=== PATIENT | female | born 1935 | race Caucasian/White ===

== ENCOUNTER 2022-11-06 07:08 | Emergency (ER) | payer MEDICARE, SELFPAY ==
[2022-11-06 07:16] VITALS: BP 152/93; PULSE 72; RESP 16; TEMP 37.2; O2SAT 93; BMI 32.3
[2022-11-06 07:23] VITALS: O2SAT 93
[2022-11-06 07:48] VITALS: PULSE 61; RESP 18; O2SAT 92
[2022-11-06 07:57] VITALS: PULSE 65; RESP 18; O2SAT 93
--- NOTE | 2022-11-06 07:59 | ED.URI1 ---
HPI - URI/Sore Throat General Chief Complaint: Upper Respiratory Infection Stated Complaint: congestion Time Seen by Provider: 11/06/22 07:50 Source: patient Limitations: no limitations History of Present Illness HPI Narrative: cc - cough Started a week ago. PCP is Dr Goel and, according to the patient and , when they called the office and asked to be seen for cough, they were told that they couldn't see patients with cough in the office. Patient's had an unused Rx for zpak and started her on that. She also took over the counter cough medicine. Patient and spouse were concerned because the cough and chest tickle hadn't completely resolved. Related Data Home Medications Medication Instructions Recorded Confirmed aspirin 81 mg capsule 81 mg PO QDAY 11/06/22 11/06/22 atorvastatin 10 mg tablet 10 mg PO QDAY 11/06/22 11/06/22 ezetimibe 10 mg tablet 10 mg PO QAM 11/06/22 11/06/22 omeprazole 20 mg capsule,delayed 20 mg PO QDAY 11/06/22 11/06/22 release Allergies Allergy/AdvReac Type Severity Reaction Status Date / Time No Known Drug Allergies Allergy Verified 11/06/22 07:46 PFSH PFSH Social History Smoking status: Never smoker Exam Narrative: Exam Narrative: Nurses notes and vital signs reviewed and patient is not hypoxic. General: Well-appearing and in no apparent distress. afebrile Skin: Warm, dry, no pallor noted. No rash. Head: Normocephalic, atraumatic. Neck: Supple, non-tender. no cervical lymphadenopathy Eye: Pupils are equal, round and EOMI. No scleral icterus. Ears, Nose, Mouth, and Throat: TM are clear, no nasal mucosal hypertrophy. Oral mucosa is moist, no posterior oropharynx erythema, uvula is mid-line Cardiovascular: Regular Rate and Rhythm without murmur, gallop or rub. Respiratory: No accessory muscle use or respiratory distress. Lungs with scattered rhonchi Musculoskeletal: normal ROM Neurological: A&O x4. No cranial nerve dysfunction observed. No truncal ataxia. Moves all extremities. Sensation intact. Psychiatric: Cooperative and interactive. Normal mood and affect. Constitutional: Vital Signs, click to edit/add: Vital Signs - 24 hr 11/06/22 07:16 11/06/22 07:23 11/06/22 07:48 Temperature 98.9 F Pulse Rate [Monito r] 72 61 Respiratory Rate 16 18 Blood Pressure [Le ft Arm] 152/93 H Pulse Oximetry 93 L 93 L 92 L Oxygen Delivery Me thod Room Air Room Air Room Air 11/06/22 07:57 Temperature Pulse Rate [Monito r] 65 Respiratory Rate 18 Blood Pressure [Le ft Arm] Pulse Oximetry 93 L Oxygen Delivery Me thod Room Air Course Vital Signs Vital signs: Vital Signs Temperature 98.9 F 11/06/22 07:16 Pulse Rate 72 11/06/22 07:16 Respiratory Rate 16 11/06/22 07:16 Blood Pressure 152/93 H 11/06/22 07:16 Pulse Oximetry 93 L 11/06/22 07:16 Oxygen Delivery Method Room Air 11/06/22 07:16 Temperature 98.9 F 11/06/22 07:16 Pulse Rate 65 11/06/22 07:57 Respiratory Rate 18 11/06/22 07:57 Blood Pressure 152/93 H 11/06/22 07:16 Pulse Oximetry 93 L 11/06/22 07:57 Oxygen Delivery Method Room Air 11/06/22 07:57 MDM - URI/Sore Throat MDM Narrative Medical decision making narrative: patient with chest congestion and cough. Exam suggests bronchitis. Patient already taking antibiotic and finished OTC cough med. I informed the patient and spouse fo the patient's diagnosis, told them to finish the antibiotic and I prescribed bromfed syrup for home use. ED return if the patient worsens. Discharge Plan Discharge Chief Complaint: Upper Respiratory Infection Clinical Impression: Bronchitis Patient Disposition: Home, Self-Care Time of Disposition Decision: 08:03 Condition: Good Prescriptions: No Action omeprazole 20 mg capsule,delayed release(DR/EC) 20 mg PO QDAY ezetimibe 10 mg tablet 10 mg PO QAM atorvastatin 10 mg tablet 10 mg PO QDAY aspirin 81 mg capsule 81 mg PO QDAY Instructions: Acute Bronchitis (ED) Stand Alone Forms: Portal Instructions Referrals: PREM GOEL [Primary Care Provider] - 1 week
== END 2022-11-06 08:12 | disposition home or self-care (01) ==
PROVIDERS: Emergency Provider Emergency Medicine; PCP Family Medicine
DX: J40 Bronchitis, not specified as acute or chronic (principal)
CPT/HCPCS: 99282

== ENCOUNTER 2022-11-09 10:13 | Emergency (ER) | payer MEDICARE, SELFPAY ==
[2022-11-09] VITALS (25 sets, daily range): BP systolic 110–162; BP diastolic 56–91; PULSE 60–91; RESP 15–25; TEMP 36.6; O2SAT 88–99; BMI 33.1
--- NOTE | 2022-11-09 10:35 | XR_ITS ---
The [address] [address] Patient Name: ISAIAS--------- Gamaliel WILKERSON MRN: [id number] date: 1935 Sex: F Assigned Patient Location: ER Current Patient Location: Accession/Order Number: [id number] Exam Date: 11/09/2022 10:50 Report Date: 11/09/2022 11:22 At the request of: LIBERTY FERNANDEZ Procedure: XR chest 1V PROCEDURE: XR chest 1V DATE: 11/09/2022 9:50 AM CDT COMPARISONS: None. CLINICAL INDICATION: 86 years Female shortness of breath FINDINGS: The cardiomediastinal silhouette and pulmonary vasculature are within normal limits. This is a less than optimal inspiratory radiograph. There is perihilar and infrahilar increased interstitial markings likely representing atelectasis. There is hilar prominence, right greater than left. The etiology is unclear. This could be pulmonary vessels accentuated by limited inspiratory radiograph. Nodular prominence in the right hilar region involving approximately a 2.8 cm area raises some concern however for adenopathy. Follow-up CT should be considered for further evaluation. Prior to doing CT, one could consider full inspiratory PA and lateral views of the chest to try to determine if this hilar prominence resolves on a full inspiratory PA chest radiograph. There is no evidence of pleural effusion or pneumothorax. IMPRESSION: Additional imaging should be considered as discussed above. Electronically authenticated by: TANIKA NORRIS Date: 11/09/2022 11:22
--- NOTE | 2022-11-09 10:54 | ED_ITS ---
HPI - SOB/Dyspnea General Chief Complaint: Shortness of Breath/Dyspnea Stated Complaint: SHORTNESS OF BREATH Time Seen by Provider: 11/09/22 10:54 Source: family Mode of arrival: walk-in Limitations: no limitations History of Present Illness HPI Narrative: Presents to emergency department complaining of shortness of breath. Patient states she has been sick with bronchitis was seen in the emergency department on the and given a prescription for Bromfed. states the patient is not doing any better with that medication and this morning she was wheezing while she was sleeping. She states her symptoms are worsening. She denies any fevers she states she had chills and had diaphoresis. She has not taking any steroids. She does not have a history of lung disease. She was never a smoker. The patient has never been on oxygen before. She denies any chest pain. She denies any lower extremity edema, or cramping. She Has a history of heart disease. Patient is also taking an mjah-efy-nkqnnos decongestant which helps a little bit but not completely.Prior to June 08 she was on an antibiotic from her doctor. She does not use inhalers at home. Related Data Home Medications Medication Instructions Recorded Confirmed aspirin 81 mg capsule 81 mg PO QDAY 11/06/22 11/06/22 atorvastatin 10 mg tablet 10 mg PO QDAY 11/06/22 11/06/22 dyrkqrrdmdllzpp-gxzioufwhgfqmgq-QO 5 ml PO Q4H PRN cold symptoms 11/06/22 11/06/22 2 mg-30 mg-10 mg/5 mL oral syrup (Bromfed DM) ezetimibe 10 mg tablet 10 mg PO QAM 11/06/22 11/06/22 omeprazole 20 mg capsule,delayed 20 mg PO QDAY 11/06/22 11/06/22 release Previous Rx's Medication Instructions Recorded albuterol sulfate 90 mcg/actuation 2 inh inhalation Q4H PRN shortness 11/09/22 aerosol inhaler of breath or wheezing #8.5 grams azithromycin 250 mg tablet See Rx Instructions PO .COMPLEX #6 11/09/22 (Zithromax Z-Amado) tabs benzonatate 200 mg capsule 200 mg PO TID #20 caps 11/09/22 methylprednisolone 4 mg tablets in 4 mg PO DAILY #21 ea 11/09/22 a dose pack (Medrol (Amado)) Allergies Allergy/AdvReac Type Severity Reaction Status Date / Time No Known Drug Allergies Allergy Verified 11/06/22 07:46 Review of Systems ROS Narrative ROS: Unless otherwise stated in this report the patient's positive and negative responses for review of systems for constitutional, eyes, ENT, cardiovascular, respiratory, gastrointestinal, neurological, , musculoskeletal and integument systems and related systems to the presenting problem are either stated in the history of present illness or were not pertinent or were negative for the symptoms and/or complaints related to the presenting medical problem. [facility] Social History Smoking status: Never smoker Exam Narrative Exam Narrative: Nurses notes and vital signs reviewed and patient is not hypoxic. General: Nontoxic, Well-appearing and in no apparent distress. Skin: Warm, dry, no pallor noted. No Rash Head: Normocephalic, atraumatic. Neck: Supple, non-tender. Eye: Pupils are equal, round and EOMI. No scleral icterus. Ears, Nose, Mouth, and Throat: TM clear, no posterior oropharynx erythema or nasal mucosal hypertrophy, uvula is mid-line Oral mucosa is moist Cardiovascular: Regular Rate and Rhythm without murmur, gallop or rub. Respiratory: Tachypnea, bilateral diffuse expiratory wheezes and rhonchi. no Intercostal retractions or respiratory distress. Chest Wall: no tenderness Back: No midline thoracic or lumbar vertebral tenderness. No CVA tenderness Musculoskeletal: normal ROM, no calf or popliteal tenderness, no lower extremity edema/swelling GI: Abdomen is soft, non-distended. Normal bowel sounds. No masses appreciated. No tenderness to palpation. No rebound, guarding, or rigidity noted. Neurological: A&O x4. No cranial nerve dysfunction observed. No truncal ataxia. Moves all extremities. Sensation intact. Psychiatric: Cooperative and interactive. Normal mood and affect. Constitutional Vital Signs - 24 hr 11/09/22 10:31 11/09/22 12:51 11/09/22 11:22 Temperature 98 F Pulse Rate 63 Pulse Rate [Monitor] 72 Respiratory Rate 24 20 Blood Pressure Blood Pressure [Left Arm] 162/88 H Pulse Oximetry 93 L 95 92 L Oxygen Delivery Method Room Air 11/09/22 11:29 11/09/22 11:29 11/09/22 11:30 Temperature Pulse Rate 62 62 67 Pulse Rate [Monitor] Respiratory Rate 24 23 18 Blood Pressure 145/84 H 146/80 H Blood Pressure [Left Arm] Pulse Oximetry 94 L 92 L 94 L Oxygen Delivery Method 11/09/22 11:46 11/09/22 12:02 11/09/22 12:17 Temperature Pulse Rate 60 60 60 Pulse Rate [Monitor] Respiratory Rate 23 20 21 Blood Pressure 114/76 130/71 H 110/70 Blood Pressure [Left Arm] Pulse Oximetry 92 L 92 L 92 L Oxygen Delivery Method 11/09/22 12:31 11/09/22 12:46 11/09/22 13:00 Temperature Pulse Rate 63 65 63 Pulse Rate [Monitor] Respiratory Rate 24 17 22 Blood Pressure 129/77 H 122/69 H 128/91 H Blood Pressure [Left Arm] Pulse Oximetry 89 L 97 94 L Oxygen Delivery Method 11/09/22 13:00 11/09/22 13:16 11/09/22 13:31 Temperature Pulse Rate 62 66 Pulse Rate [Monitor] Respiratory Rate 22 21 Blood Pressure 128/91 H 142/69 H 134/70 H Blood Pressure [Left Arm] Pulse Oximetry 93 L 94 L Oxygen Delivery Method 11/09/22 13:51 11/09/22 14:00 11/09/22 14:01 Temperature Pulse Rate 91 H 85 77 Pulse Rate [Monitor] Respiratory Rate 15 18 Blood Pressure 153/72 H Blood Pressure [Left Arm] Pulse Oximetry 89 L 99 Oxygen Delivery Method 11/09/22 14:01 11/09/22 14:16 11/09/22 14:30 Temperature Pulse Rate 72 89 86 Pulse Rate [Monitor] Respiratory Rate 20 17 18 Blood Pressure 127/76 H 140/82 H Blood Pressure [Left Arm] Pulse Oximetry 95 92 L Oxygen Delivery Method Course Vital Signs Vital signs: Vital Signs Temperature 98 F 11/09/22 10:31 Pulse Rate 72 11/09/22 10:31 Respiratory Rate 24 11/09/22 10:31 Blood Pressure 162/88 H 11/09/22 10:31 Pulse Oximetry 93 L 11/09/22 10:31 Oxygen Delivery Method Room Air 11/09/22 10:31 Temperature 98 F 11/09/22 10:31 Pulse Rate 86 11/09/22 14:30 Respiratory Rate 18 11/09/22 14:30 Blood Pressure 140/82 H 11/09/22 14:30 Pulse Oximetry 92 L 11/09/22 14:30 Oxygen Delivery Method Room Air 11/09/22 10:31 MDM - SOB/Dyspnea MDM Narrative Medical decision making narrative: pt had an IV established, she was given Solu-Medrol 125 mg IV and a DuoNeb +2 albuterol treatments. She was covered with 1 g of Rocephin while the workup was being done. respiratory panels negative. Patient was reevaluated states she felt better and her lungs were clear. The patient will be given a prescription for a Medrol Dosepak, albuterol, and Tessalon Perles. She is advised to follow up with primary care doctor. Labs chest x-ray and CT results were all discussed with patient and . Patient's oxygen saturation is 93 percent on room air.At this time the patient is without objective evidence of an acute process requiring hospitalization or inpatient management. The patient has remained hemodynamically stable. No additional indication for emergent studies at this time. I answered all questions. Discussed discharge instructions including standard anticipatory guidance and what should prompt a return to the emergency department, including if they get worse are not getting better or develops any new or concerning symptoms. I've given them specific time frame in which to follow-up, and who to follow-up with. The patient demonstrates understanding. Patient is nontoxic and stable for discharge with outpatient follow-up. This note was created with the assistance of a speech recognition program. Although the intention is to generate documents that actually reflects the content of the visit, no guarantees can be provided that every mistake has been identified and corrected by editing. Differential Diagnosis Differential diagnosis: Likely acute exacerbation of chronic obstructive airways disease, congestive heart failure, community acquired pneumonia, asthma with exacerbation and pulmonary embolism Medical Records Attestation: I reviewed the patient's medical records. Lab Data Attestation: I reviewed the patient's lab results. Labs: Lab Results 11/09/22 11/09/22 Range/Units 12:40 14:30 WBC 5.8 (4.0-11.0) 10^3/uL RBC 4.60 (4.20-5.40) 10^6/uL Hgb 13.8 (12.0-16.0) g/dL Hct 42.0 (36.0-48.0) % MCV 91.3 (81.0-99.0) fL MCH 30.0 (26.7-34.0) pg MCHC 32.9 (29.9-35.2) g/dL RDW 13.2 (11.0-15.0) % Plt Count 237 (150-450) 10^3/uL MPV 11.0 (9.5-13.5) fL Neut % (Auto) 55.1 (43.0-75.0) % Lymph % (Auto) 26.2 (20.5-60.0) % Colbert % (Auto) 9.7 (1.7-12.0) % Eos % (Auto) 8.0 H (0.9-7.0) % Baso % (Auto) 0.7 (0.2-2.0) % Neut # (Auto) 3.2 (1.4-6.5) 10^3/uL Lymph # (Auto) 1.5 (1.2-3.8) 10^3/uL Colbert # (Auto) 0.6 (0.3-0.8) 10^3/uL Eos # (Auto) 0.5 (0.0-0.7) 10^3/uL Baso # (Auto) 0.0 (0.0-0.1) 10^3/uL Sodium 138 (136-145) mmol/L Potassium 3.9 (3.5-5.1) mmol/L Chloride 104 (98-107) mmol/L Carbon Dioxide 27.9 (21.0-32.0) mmol/L Anion Gap 10.0 BUN 16.0 (7.0-18.0) mg/dL Creatinine 0.81 (0.55-1.02) mg/dL Est GFR ( Amer) >60 (>=60) Est GFR (Non-Af Amer) >60 (>=60) BUN/Creatinine Ratio 19.8 Glucose 96 (74-106) mg/dL Calcium 8.8 (8.5-10.1) mg/dL Total Bilirubin 0.5 (0.2-1.0) mg/dL AST 16 (15-37) U/L ALT 19 (14-59) U/L Troponin I High Sens 6.8 (4.0-51.3) pg/mL NT-Pro-B Natriuret Pep 207.0 (<=1800.0) pg/mL Total Protein 6.5 (6.4-8.2) g/dL Albumin 2.9 L (3.4-5.0) g/dL Globulin 3.6 g/dL Albumin/Globulin Ratio 0.8 Urine Color Lt. yellow (YELLOW) Urine Clarity Clear (CLEAR) Urine pH 6.0 (5.0-9.0) Ur Specific [place] <=1.005 A (1.005-1.025) Urine Protein Negative (NEG/TRACE) mg/dL Urine Glucose (UA) Negative (NEGATIVE) mg/dL Urine Ketones Negative (NEGATIVE) mg/dL Urine Occult Blood Negative (NEGATIVE) Urine Nitrite Negative (NEGATIVE) Urine Bilirubin Negative (NEGATIVE) Urine Urobilinogen 0.2 (0.2-1.0) EU/dL Ur Leukocyte Esterase Negative (NEGATIVE) Urine RBC None seen (0-2) #/HPF Urine WBC None seen (NONE SEEN) #/HPF Ur Squamous Epith Cells None seen (NONE/RARE) #/LPF Ur Culture Indicated? No Adenovirus (PCR) Not detected (NOT DETECTE) C. pneumoniae DNA (PCR) Not detected (NOT DETECTE) Coronavirus Type OC43 Not detected (NOT DETECTE) Coronavirus Type HKU1 Not detected (NOT DETECTE) Coronavirus Type 229E Not detected (NOT DETECTE) Coronavirus Type NL63 Not detected (NOT DETECTE) Human Metapneumovir PCR Not detected (NOT DETECTE) M. pneumoniae (PCR) Not detected (NOT DETECTE) Parainfluenza PCR Not detected (NOT DETECTE) Parainfluenza 2 (PCR) Not detected (NOT DETECTE) Parainfluenza 3 (PCR) Not detected (NOT DETECTE) Parainfluenza 4 (PCR) Not detected (NOT DETECTE) RSV (RT-PCR) Not detected (NOT DETECTE) Entero/Rhino (PCR) Not detected (NOT DETECTE) SARS-CoV-2 (PCR) Not detected (NOT DETECTE) Bordetella pertussis (PCR) Not detected (NOT DETECTE) B parapertussis DNA PCR Not detected (NOT DETECTE) Influenza Type A (PCR) Not detected Influenza Type B (PCR) Not detected (NOT DETECTE) ECG Data Attestation: I personally reviewed and interpreted this ECG as follows: ECG interpretation date: 11/09/22 Discharge Plan Discharge Chief Complaint: Shortness of Breath/Dyspnea Clinical Impression: Bronchopneumonia Patient Disposition: Home, Self-Care Time of Disposition Decision: 15:36 Mode of Transportation: Private Vehicle Prescriptions / Home Meds: New methylprednisolone [Medrol (Amado)] 4 mg tablets,dose pack 4 mg PO DAILY Qty: 21 0RF benzonatate 200 mg capsule 200 mg PO TID Qty: 20 0RF azithromycin [Zithromax Z-Amado] 250 mg tablet See Rx Instructions .ROUTE .COMPLEX Qty: 6 0RF Rx Instructions: For 250 mg dose pack: take 500 mg today (day 1), then 250 mg for 4 days (days 2-5) albuterol sulfate 90 mcg/actuation HFA aerosol inhaler 2 inh inhalation Q4H PRN (Reason: shortness of breath or wheezing) Qty: 8.5 0RF No Action omeprazole 20 mg capsule,delayed release(DR/EC) 20 mg PO QDAY ezetimibe 10 mg tablet 10 mg PO QAM atorvastatin 10 mg tablet 10 mg PO QDAY aspirin 81 mg capsule 81 mg PO QDAY [id number]-hfpftnica-JQ [Bromfed DM] 2-30-10 mg/5 mL syrup 5 ml PO Q4H PRN (Reason: cold symptoms) Instructions: Bronchospasm (ED) Stand Alone Forms: Portal Instructions Referrals: PREM GOEL [Primary Care Provider] - 1 week
--- NOTE | 2022-11-09 12:21 | CT_ITS ---
[address] [address] Patient Name: ISAIAS WILKERSON MRN: [id number] date: 1935 Sex: F Assigned Patient Location: ER Current Patient Location: ER Accession/Order Number: [id number] Exam Date: 11/09/2022 13:45 Report Date: 11/09/2022 14:51 At the request of: LIBERTY FERNANDEZ Procedure: CT angio chest EXAMINATION: CT angio chest, 11/09/2022 1:45 PM EDT HISTORY: Dyspnea COMPARISON: None. TECHNIQUE: CT angiography of the chest was performed with IV contrast. MIP (maximum intensity projection) images or 3D post processing was performed. CT dose reduction technique was used, including Automated Exposure Control. FINDINGS: VASCULATURE/PULMONARY ARTERIES: There is satisfactory opacification of the pulmonary arterial system. There is no evidence of pulmonary embolism. The main pulmonary artery is normal in diameter. The aorta and great vessels appear normal. HEART/PERICARDIUM: There is cardiomegaly. No pericardial effusion. Coronary artery calcifications. MEDIASTINAL/HILAR LYMPH NODES: Prominent right hilar lymph node measuring 2.1 x 1.3 cm. Left hilar lymph nodes measuring up to 8 mm in short axis. Mediastinal lymph nodes measuring up to 1.5 x 0.8 cm in the precarinal region. No axillary lymphadenopathy. ESOPHAGUS: Unremarkable. PLEURAL CAVITY: No pleural effusion or pneumothorax. LUNGS/AIRWAYS: No infiltrates or consolidations. Bibasilar subsegmental atelectasis. No suspicious pulmonary nodules. CHEST WALL/AXILLA/LOWER NECK: Normal. VISUALIZED UPPER ABDOMEN: There is a left hepatic cyst measuring 4.7 x 6.2 cm. BONES: No acute process. IMPRESSION: 1. No evidence of pulmonary embolism. 2. Cardiomegaly. 3. Mildly prominent bilateral hilar and mediastinal lymph nodes. No axillary lymphadenopathy. Electronically authenticated by: PROSPER ALAS Date: 11/09/2022 14:51
--- NOTE | 2022-11-09 12:21 | ECG_ITS ---
The [facility] Test Date: 2022-11-09 Pat Name: Mary--------- Fernando Department: Room: - Gender: Female Supervisor Counseling And Guidance: : 1935 Requested By: Order Number: [id number] Reading MD: JONNIE DIETRICH Measurements Intervals [place] Rate: 60 P: 24 AK: 196 QRS: 34 QRSD: 80 T: 65 QT: 416 QTc: 417 Interpretive Statements 1100 Sinus bradycardia 9110 normal ECG No previous ECG available for comparison Electronically Signed On 11-10-2022 6:45:19 EDT by JONNIE DIETRICH
[2022-11-09] MEDS: METHYLPREDNISOLONE SOD SUCC PF 125 MG/2 ML VIAL IVP (12:48)
[2022-11-09] MEDS: IPRATROPIUM/ALBUTEROL SULFATE 3 ML AMPUL.NEB IH (12:51)
[2022-11-09] MEDS: ALBUTEROL SULFATE 2.5 MG/3 ML VIAL NEB IH (12:51)
[2022-11-09 12:57] LABS: Adenovirus NOT DETECTED (NOT DETECTE); Bordetella parapertussis NOT DETECTED (NOT DETECTE); Coronavirus 229E NOT DETECTED (NOT DETECTE); Coronavirus HKU1 NOT DETECTED (NOT DETECTE); Coronavirus NL63 NOT DETECTED (NOT DETECTE); Coronavirus OC43 NOT DETECTED (NOT DETECTE); Human Metapneumovirus NOT DETECTED (NOT DETECTE); Human Rhinovirus/Enterovirus NOT DETECTED (NOT DETECTE); Influenza A NOT DETECTED; Influenza B NOT DETECTED (NOT DETECTE); Mycoplasma pneumoniae NOT DETECTED (NOT DETECTE); Parainfluenza Virus 1 NOT DETECTED (NOT DETECTE); Parainfluenza Virus 2 NOT DETECTED (NOT DETECTE); Parainfluenza Virus 3 NOT DETECTED (NOT DETECTE); Parainfluenza Virus 4 NOT DETECTED (NOT DETECTE); Respiratory Syncytial Virus NOT DETECTED (NOT DETECTE); SARS-CoV-2 NOT DETECTED (NOT DETECTE)
[2022-11-09 12:59] LABS: Basophils Percent Auto 0.7 % (0.2-2.0); Eosinophils Absolute Auto 0.5 10^3/uL (0.0-0.7); Hemoglobin 13.8 g/dL (12.0-16.0); Immature Granulocytes Abs Auto 0.02 10^3/uL (0.00-0.03); Immature Granulocytes Pct Auto 0.3 % (0.0-0.5); Lymphocytes Absolute Auto 1.5 10^3/uL (1.2-3.8); Lymphocytes Percent Auto 26.2 % (20.5-60.0); Mean Corpuscular HGB Conc 32.9 g/dL (29.9-35.2); Mean Corpuscular Volume 91.3 fL (81.0-99.0); Monocytes Absolute Auto 0.6 10^3/uL (0.3-0.8); Monocytes Percent Auto 9.7 % (1.7-12.0); Neutrophils Absolute Auto 3.2 10^3/uL (1.4-6.5); Neutrophils Percent Auto 55.1 % (43.0-75.0); Platelet Count 237 10^3/uL (150-450); Red Cell Distribution Width 13.2 % (11.0-15.0); White Blood Count 5.8 10^3/uL (4.0-11.0)
[2022-11-09 13:20] LABS: Alanine Aminotransferase 19 U/L (14-59); Albumin Globulin Ratio 0.8; Albumin Level 2.9 g/dL (3.4-5.0); Alkaline Phosphatase 101 U/L (46-116); Aspartate Amino Transferase 16 U/L (15-37); BUN Creatinine Ratio 19.8; Bilirubin Total 0.5 mg/dL (0.2-1.0); Calcium 8.8 mg/dL (8.5-10.1); Carbon Dioxide 27.9 mmol/L (21.0-32.0); Chloride 104 mmol/L (98-107); Estimated GFR (African America >60 (>=60); Estimated GFR (Non-African Ame >60 (>=60); Globulin 3.6 g/dL; Glucose 96 mg/dL (74-106); Potassium 3.9 mmol/L (3.5-5.1); Sodium 138 mmol/L (136-145); Total Protein 6.5 g/dL (6.4-8.2); Troponin I High Sensitivity 6.8 pg/mL (4.0-51.3)
[2022-11-09 14:43] LABS: Bilirubin Urine NEGATIVE (NEGATIVE); Blood Urine NEGATIVE (NEGATIVE); Clarity Urine CLEAR (CLEAR); Color Urine LT. YELLOW (YELLOW); Glucose Urine UA NEGATIVE (NEGATIVE); Ketones Urine NEGATIVE (NEGATIVE); Leukocyte Esterase Urine NEGATIVE (NEGATIVE); Nitrite Urine NEGATIVE (NEGATIVE); Protein Urine NEGATIVE (NEG/TRACE); Specific Gravity Urine <=1.005 (1.005-1.025); Urobilinogen Urine 0.2 EU/dL (0.2-1.0)
[2022-11-09 14:50] LABS: Bacteria Urine NONE SEEN #/HPF (NONE SEEN); Cast Seen? NONE SEEN #/LPF (NONE SEEN); Crystals Seen? None Seen #/HPF (None Seen); Mucus Urine NONE SEEN (NONE SEEN); RBC Urine NONE SEEN #/HPF (0-2); Squamous Epithelial Cell Urine NONE SEEN #/LPF (NONE/RARE); Urine Culture Indicated NO; WBC Urine NONE SEEN #/HPF (NONE SEEN)
[2022-11-09 15:55] LABS: Troponin I High Sensitivity 6.2 pg/mL (4.0-51.3)
[2022-11-09] MEDS: CEFTRIAXONE 1,000 MG in 0.9 % SODIUM CHLORIDE 50 ML 100 MG IV (16:04)
== END 2022-11-09 17:50 | disposition home or self-care (01) ==
PROVIDERS: Emergency Provider Emergency Medicine; PCP Family Medicine
DX: J18.0 Bronchopneumonia, unspecified organism (principal); R06.02 Shortness of breath; Z79.82 Long term (current) use of aspirin; R05.9 Cough, unspecified
CPT/HCPCS: 0202U; 36415; 71045; 71275; 80053; 81001; 83880; 84484; 85025; 93005; 94640; 96365; 96375; 99285; J2930; Q9967

== ENCOUNTER 2022-11-14 12:25 | Outpatient (OUT) | payer MEDICARE, SELFPAY ==
--- NOTE | 2022-11-14 12:30 | PM.CN ---
Consult Note: HPI Data of Consult Patient: known to practice within the last 3 years Consult date: 11/14/22 Requesting Physician: TAMEKA BAH NP Primary Care Provider: PREM GOEL Consult Narrative Narrative: She is here for f/u of MBB 10/24/22 with 80% relief of pain and increased fx for several hours . Pain is right lower back and hip. No radicular sx. No new sensorimotor or bowel or bladder sx. Medication regimen is controlling pain and assisting with ability to complete ADLs. No adverse med SE. Discussed RFA procedure and question answered. She refers no sedation. Oswestry- 16 cc:: CC: TAMEKA BAH NP Review of Systems ROS Status of ROS 10 or more systems reviewed and unremarkable except as noted in history and below Musculoskeletal Reports: back pain PFSH PFSH Social History Smoking status: Never smoker Meds Home Medications and Allergies Home Medications Medication Instructions Recorded Confirmed Type aspirin 81 mg capsule 81 mg PO QDAY 11/06/22 11/06/22 History atorvastatin 10 mg tablet 10 mg PO QDAY 11/06/22 11/14/22 History ezetimibe 10 mg tablet 10 mg PO QAM 11/06/22 11/06/22 History omeprazole 20 mg capsule,delayed 20 mg PO QDAY 11/06/22 11/06/22 History release albuterol sulfate 90 mcg/actuation 2 inh inhalation Q4H PRN shortness 11/09/22 Rx aerosol inhaler of breath or wheezing #8.5 grams acetaminophen 650 mg 650 mg PO .QD 11/14/22 11/14/22 History tablet,extended release (Arthritis Pain Relief (acetaminophen) ER) multivitamin 1 tab PO DAILY 11/14/22 11/14/22 History Allergies Allergy/AdvReac Type Severity Reaction Status Date / Time No Known Drug Allergies Allergy Verified 11/06/22 07:46 Exam Constitutional Documenting provider has reviewed patient's vital signs: yes Common normals: no apparent distress, average body habitus, oriented x3, healthy appearing, alert and well nourished Orientation/consciousness: Yes awake, Yes oriented to person, Yes oriented to place and Yes oriented to time HENMT Common normals: normocephalic Respiratory Common normals: normal respiratory effort, no retractions and no use of accessory muscles Effort & inspection: able to speak in complete sentences and symmetric chest movement Back & Pelvis Lumbar spine/lower back: normal to inspection, lumbar ROM normal, pain with ROM, paraspinal muscle tenderness and straight leg raise negative bilaterally Extremity Common normals: normal to inspection, normal capillary refill and no pedal edema Other: muscle strength 4/5 bilat LE, with intact sensation positive facet load right Assessment and Plan Assessment and Plan (1) Lumbar spondylosis: Plan schedule thermal RFA right L3,4,5 under fluoroscopy without sedation
== END 2022-11-14 12:26 ==
PROVIDERS: PCP Family Medicine; Visit Provider Nurse Practitioner
DX: M47.816 Spondylosis without myelopathy or radiculopathy, lumbar region (principal)
CPT/HCPCS: G0463

== ENCOUNTER 2022-12-16 09:43 | Day surgery (SDC) | payer MEDICARE, SELFPAY ==
[2022-12-16 10:14] VITALS: BP 149/101; PULSE 79; RESP 16; TEMP 36.3; O2SAT 97
--- NOTE | 2022-12-16 11:05 | W.PM.PROCNOT ---
Date of procedure: 12/16/22 Pre-op diagnosis: lumbar spondylosis Post-op diagnosis: same Procedure: right lumbar 3,4,5 Radiofrequency ablation Under fluoroscopic guidance Rhizotomy was created using radio frequency ablation at 80?C for 90 seconds 1 to 2 lesions created at each site. Post lesioning injection of 2 mL each of 0.25% Marcaine and 2% lidocaine with Depo-Medrol 40mg. 0.5 to 1 mL injected at each site Anesthesia local 2% lidocaine for Timeout process compliant After informed consent obtained.Patient brought to the procedure room placed in the prone position skin overlying the area was prepped and draped in a sterile fashion using betadine. 25 gauge needle was used to create a skin wheal over each of the targeted areas utilizing 2% lidocaine. A rhizotomy needle with a 10 mm active tip was inserted over each of the anesthetized areas and directed towards each of the medial branches accomplished under fluoroscopic guidance. after encountering the same we had positive sensory stimulation, negative motor stimulation was noted. lesions were then created. Post lesioning, steroid solution was injected needles removed. Patient was transferred to recovery room in stable condition to be discharged home after meeting criteria. Anesthesia: Local Surgeon: Nilam Garza
[2022-12-16 11:08] VITALS: RESP 20
[2022-12-16 11:11] VITALS: BP 155/99; PULSE 77; O2SAT 86
[2022-12-16] MEDS: LIDOCAINE HCL 2% 400 MG/20 ML MDV 5 ML INJ (11:13)
[2022-12-16] MEDS: BUPIVACAINE HCL 0.25% PF 25 MG/10 ML VIAL 4 ML INJ (11:13)
[2022-12-16] MEDS: METHYLPREDNISOLONE ACETATE 40 MG/ML VIAL INJ (11:14)
[2022-12-16 11:20] VITALS: BP 148/97; PULSE 76; O2SAT 91
--- NOTE | 2022-12-16 12:12 | PC.NURSE ---
1123 Pt attempted to walk to go home numbness noted in Right foot Pt resting in w/c 1140 Dr. Garza spoke with pt Reassured numbness will improve Pt remains resting in w/c 1200 Pt states right foot feels tingly Attempted to walk Walking has improved but still some weakness.Pt returned to w/c 1215 Pt attempted to ambulate Tingling has diminished walking has improved but not back to preprocedure walking 1229 Pt taken to child care [facility] administrator to be observed till strength returns to right leg
== END 2022-12-16 12:42 | disposition home or self-care (01) ==
LOC: SURGOUT 09:45
PROVIDERS: PCP Family Medicine; Visit Provider Anesthesiology Pain Medicine
DX: M47.816 Spondylosis without myelopathy or radiculopathy, lumbar region (principal)
CPT/HCPCS: 64635; 64636; J1030

== ENCOUNTER 2023-01-22 08:47 | Outpatient (OUT) | payer MEDICARE, SELFPAY ==
--- NOTE | 2023-01-22 09:31 | PM.CN ---
Consult Note: HPI Data of Consult Patient: known to practice within the last 3 years Requesting Physician: Mercy Pak NP Primary Care Provider: PREM GOEL Consult Narrative Reason for consult: Right L 3, 4, 5 RFA f/u Narrative: Mary King is a pleasant 87 year old female who presents for evaluation of chronic right sided low back pain. She had a right side L 3, 4,5 RFA on 12/16/22 with 100% pain relief and improvement in ability to stand longer and ambulate further. Patient is occasionaly taking tylenol arthritis for chronic generalized arthritis, no longer taking zonegran. cc:: CC: Mercy Pak NP Review of Systems ROS Status of ROS 10 or more systems reviewed and unremarkable except as noted in history and below [facility] Medical History (Updated 01/22/23 @ 09:39 by Mercy Pak NP) Surgical History Social History Smoking status: Never smoker Meds Home Medications and Allergies Home Medications Medication Instructions Recorded Confirmed Type aspirin 81 mg capsule 81 mg PO QDAY 11/06/22 12/16/22 History ezetimibe 10 mg tablet 10 mg PO QAM 11/06/22 12/16/22 History omeprazole 20 mg capsule,delayed 20 mg PO QDAY 11/06/22 12/16/22 History release albuterol sulfate 90 mcg/actuation 2 inh inhalation Q4H PRN shortness 11/09/22 12/16/22 Rx aerosol inhaler of breath or wheezing #8.5 grams acetaminophen 650 mg 650 mg PO .QD 11/14/22 12/16/22 History tablet,extended release (Arthritis Pain Relief (acetaminophen) ER) multivitamin 1 tab PO DAILY 11/14/22 12/16/22 History zonisamide 25 mg capsule 50 mg PO .HS 11/14/22 12/16/22 History Allergies Allergy/AdvReac Type Severity Reaction Status Date / Time No Known Drug Allergies Allergy Verified 12/16/22 10:12 Exam Constitutional Documenting provider has reviewed patient's vital signs: yes Common normals: no apparent distress, oriented x3, no limitations, healthy appearing, alert and well nourished General appearance: cooperative Nutritional appearance: overweight HENMT Common normals: normocephalic, hearing grossly normal bilaterally and moist oral mucous membranes Head and scalp: normocephalic Eye Common normals: PERRL Pupil: PERRL Neck & C-Spine Common normals: full ROM General: normal visual inspection Chest Common normals: inspection of chest normal Respiratory Common normals: normal respiratory effort, no retractions and no use of accessory muscles Back & Pelvis Thoracic spine/upper back: normal to inspection and thoracic ROM normal Lumbar spine/lower back: normal to inspection, ROM limited and straight leg raise negative bilaterally Extremity Common normals: normal to inspection and full ROM Neuro Common normals: oriented x3, CN's II-XII intact bilaterally, moves all extremities, no focal motor deficits, no sensory deficits noted and deep tendon reflexes 2+ bilaterally Sensorium/orientation: alert Gait (neuro): normal gait Motor exam: strength 5/5 throughout and no movement abnormalities noted Psych Common normals: mental status grossly normal, thought process normal, cooperative, affect normal, speech normal and activity/motor behavior normal Speech: normal speech Thought process: normal thought process Results Additional Findings Additional findings: I have checked an [facility] report on this patient today and there are no aberrancies noted in the prescribing history.?? A drug screen was completed and reviewed within the last year, and if there has not been a drug screen completed we ordered one today to monitor higher risk, state monitored pain medication use. Assessment and Plan Assessment and Plan (1) Lumbar spondylosis: Assessment and Plan: 100% pain relief and improvement in ability to complete ADLs, ambulate further, stand longer since right sided L3, 4, 5 RFA on 12/16/22. (2) Chronic pain syndrome: Assessment and Plan: continue PRN use of tylenol arthritis (3) Muscle spasm: Assessment and Plan: patient no longer taking zonegran, will dc (4) Obesity (BMI 30.0-34.9): Assessment and Plan: The patient was counseled that proper dietary changes and consistent participation in a home exercise plan can lead to weight loss. Weight loss can help to improve functionality in patients with chronic pain.? Plan f/u 3 months
== END 2023-01-22 08:48 | disposition home or self-care (01) ==
LOC: PM 08:48
PROVIDERS: PCP Family Medicine; Visit Provider Nurse Practitioner
DX: M47.816 Spondylosis without myelopathy or radiculopathy, lumbar region (principal); E66.9 Obesity, unspecified; M62.838 Other muscle spasm; G89.4 Chronic pain syndrome
CPT/HCPCS: G0463

== ENCOUNTER 2023-04-23 08:44 | Outpatient (OUT) | payer MEDICARE, SELFPAY ==
--- NOTE | 2023-04-23 09:10 | P.CN_ITS ---
Consult Note: HPI Data of Consult Patient: known to practice within the last 3 years Requesting Physician: GUNNER SMALL Primary Care Provider: PREM GOEL Consult Narrative Reason for consult: f/u Narrative: Mary King is a pleasant 87 year old female who presents for evaluation of chronic right buttock and leg pain. Patient reporting pain and shoots down right leg intermittently. Pain today 8/10 worse with standing walking activity rolling over, improved with rest. Mild relief from aspirin, moderate relief from tylenol arhtritis. cc:: CC: GUNNER SMALL Review of Systems 2 ROS0 Status of ROS 10 or more systems reviewed and unremark able except as noted in history and below Musculoskeletal Reports: back pain PFSH PFSH Medical History Hearing deficit ?H91.90 - Unspecified hearing loss, unspecified ear (ICD-10) High cholesterol ?E78.00 - Pure hypercholesterolemia, unspecified (ICD-10) Low back pain ?M54.50 - Low back pain, unspecified (ICD-10) Surgical History H/O breast biopsy ?Z98.890 - Other specified postprocedural states (ICD-10) Social History Smoking status: Never smoker Meds Home Medications and Allergies Home Medications Medication Instructions Recorded Confirmed Type aspirin 81 mg capsule 81 mg PO QDAY 11/06/22 12/16/22 History ezetimibe 10 mg tablet 10 mg PO QAM 11/06/22 12/16/22 History omeprazole 20 mg capsule,delayed 20 mg PO QDAY 11/06/22 12/16/22 History release albuterol sulfate 90 mcg/actuation 2 inh inhalation Q4H PRN shortness 11/09/22 12/16/22 Rx aerosol inhaler of breath or wheezing #8.5 grams acetaminophen 650 mg 650 mg PO .QD 11/14/22 12/16/22 History tablet,extended release (Arthritis Pain Relief (acetaminophen) ER) multivitamin 1 tab PO DAILY 11/14/22 12/16/22 History zonisamide 25 mg capsule 50 mg PO .HS 11/14/22 12/16/22 History Allergies Allergy/AdvReac Type Severity Reaction Status Date / Time No Known Drug Allergies Allergy Verified 12/16/22 10:12 Exam Constitutional Documenting provider has reviewed patient's vital signs: yes Common normals: no apparent distress, oriented x3, no limitations, healthy appearing, alert and well nourished General appearance: cooperative Nutritional appearance: overweight HENMT Common normals: normocephalic, hearing grossly normal bilaterally and moist oral mucous membranes Head and scalp: normocephalic Eye Common normals: PERRL Pupil: PERRL Neck & C-Spine Common normals: full ROM General: normal visual inspection Chest Common normals: inspection of chest normal Respiratory Common normals: normal respiratory effort, no retractions and no use of accessory muscles Back & Pelvis Thoracic spine/upper back: normal to inspection and thoracic ROM normal Lumbar spine/lower back: ROM limited, pain with ROM and straight leg raise negative bilaterally Sacroiliac joints: SI joints normal Other: tenderness over right piriformis, pain with deep palpation Back image (female): 2 1. Extremity Common normals: normal to inspection and full ROM Extremity image (back): 2 1. 2. intermittent pain Neuro Common normals: oriented x3, CN's II-XII intact bilaterally, moves all extremities, no focal motor deficits, no sensory deficits noted and deep tendon reflexes 2+ bilaterally Sensorium/orientation: alert Gait (neuro): normal gait Motor exam: strength 5/5 throughout and no movement abnormalities noted Psych Common normals: mental status grossly normal, thought process normal, cooperative, affect normal, speech normal and activity/motor behavior normal Speech: normal speech Thought process: normal thought process Assessment and Plan Assessment and Plan (1) Piriformis syndrome of right side: (2) Chronic pain syndrome: (3) Lumbar spondylosis: (4) Muscle spasm: (5) Lumbar radiculopathy: Plan patients pain is most severe over right piriformis muscle group, there is a possible radicular component as well based on patients reported intermittent symptoms radiating from low back to right foot, will consider right piriformis injection or DERICK after PT start diclofenac 50mg BID PRN start topical cream and heat BID-TID daily start PT for stretching and right piriformis syndrome f/u 6 weeks to discuss pain and presentation
== END 2023-04-23 08:45 | disposition home or self-care (01) ==
LOC: PM 08:45
PROVIDERS: PCP Family Medicine; Visit Provider Nurse Practitioner
DX: M47.26 Other spondylosis with radiculopathy, lumbar region (principal); G57.01 Lesion of sciatic nerve, right lower limb; G89.4 Chronic pain syndrome; M62.830 Muscle spasm of back
CPT/HCPCS: G0463

== ENCOUNTER 2023-04-24 07:55 | Outpatient (RCR) | payer MEDICARE, SELFPAY | END 2023-06-07 08:00 | disposition home or self-care (01) | LOC: PT 07:55 | PROVIDERS: PCP Family Medicine; Visit Provider Nurse Practitioner | DX: G57.01 Lesion of sciatic nerve, right lower limb (principal) | CPT/HCPCS: 97035; 97110; 97140; 97161 ==

== ENCOUNTER 2023-05-28 14:16 | Outpatient (OUT) | payer MEDICARE, SELFPAY ==
--- OUTSIDE RECORDS SUMMARY | 2023-05-28 14:19 | XMS_ITS | CCD ---
Author Name Unknown Address [address] [place] [address] Organization [facility] Care Team Providers Care Network Administrator Name Role Phone Prem Goel Unavailable DO Prem Goel Primary Care Provider DO Prem Goel Attending Provider LAKSHMIPATHY ., NARENDRANATH Admitting Eda vailable RAYMON, DR AMARO Primary Care Unavailable LAKSHMIPATHY ., NARENDBASSAMATH Attending Eda vailable LAKSHMIPATHY ., NARENDRANATH Consulting Eda vailable HALKER ., TAMEKA Consulting Unavailable RAYMON, DR AMARO Primary Care Unavailable LAKSHMIPATHY ., ERISATH Attending Eda vailable LAKSHMIPATHY ., ERISATH Consulting Eda vailable LAKSHMIPATHY ., NARFRANCISCAATH Admitting Eda vailable RAYMON, DR AMARO Primary Care Unavailable LAKSHMIPATHY ., NARENDBASSAMATH Attending Eda vailable LAKSHMIPATHY ., JERRELLENDBASSAMATH Consulting Eda vailable LAKSHMIPATHY ., NARENDRANATH Admitting Eda vailable RAYMON, DR AMARO Primary Care Unavailable LAKSHMIPATHY ., NARENDRANATH Admitting Eda vailable LAKSHMIPATHY ., DONELL Attending Eda vailable PARAMJIT, DR KHAN Admitting Unavailable RAYMON, DR AMARO Primary Care Unavailable PARAMJIT, DR KHAN Attending Unavailable RAMOS ., DR KHOA Hernandez Consulting Unavailable RAYMON, DR AMARO Primary Care Unavailable RAMOS ., DR KHOA Hernandez Admitting Unavailable RAMOS ., DR KHOA Hernandez Attending Unavailable RAMOS ., DR KHOA Hernandez Consulting Unavailable JOSE .AIXA Consulting Unavailable RAYMON, DR AMARO Primary Care Unavailable RAMOS ., DR KHOA Hernandez Admitting Unavailable RAMOS ., DR KHOA Hernandez Attending Unavailable RAMOS ., DR KHOA Hernandez Admitting Unavailable RAYMON, DR AMARO Primary Care Unavailable GARCIA .AIXA Consulting Unavailable RAMOS ., DR KHOA Hernandez Attending Unavailable RAMOS ., DR KHOA Hernandez Admitting Unavailable KUNS, DR AMARO Primary Care Unavailable RAMOS ., DR KHOA Hernandez Attending Unavailable RAMOS ., DR KHOA Hernandez Consulting Unavailable RAMOS ., DR KHOA Hernandez Admitting Unavailable KUNS, DR AMARO Primary Care Unavailable RAMOS ., DR KHOA Hernandez Attending Unavailable RAMOS ., DR KHOA Hernandez Consulting Unavailable KUNS, DR AMARO Consulting Unavailable KUNS, DR AMARO Primary Care Unavailable LAKSHMIPATHY ., NARENDRANATH Admitting Eda vailable LAKSHMIPATHY ., NARENDBASSAMATH Attending Eda vailable LAKSHMIPATHY ., NARFRANCISCAATH Consulting Eda vailable Kuns, DO Prem Primary Care Provider [phone] Kuns, DO Prem Attending Provider Kuns, Prem Admitting Unavailable Kuns, Prem Primary Care Unavailable Kuns, Prem Attending Unavailable Kuns, Prem Primary Care Unavailable Kuns, Prem Attending Unavailable Kuns, Prem Admitting Unavailable Kuns, Prem Primary Care Unavailable Kuns, Prem Attending Unavailable Kuns, Perm Admitting Unavailable Medications Current Medications Medication Drug Class(es) Dates Sig (Normalized) Sig (Original) 8 hr acetaminophen 650 mg extended release oral tablet (9 sources) take 2 tablets by mouth every eight hours Acetaminophen ER 650 MG 2 tablets as needed Orally every 8 hrs Active take 2 tablets by mo uth every eight hours as needed Acetaminophen ER 650 MG 2 tablets as nee ded Orally every 8 hrs Active [id number] actuat albuterol 0.09 mg/actuat metered dose inhaler (4 sources) beta2-Adrenergic Agonist take 1 puff(s) by inhalation every four hours as needed Albuterol Sulfate HFA 108 (90 Base) MCG/ACT 1 puff as needed Inhalation every 4 hrs Active take 1 puff(s) by in halation every four hours as needed Albuterol Sulfate HFA 108 (90 Base) MCG/ACT 1 puff as needed Inhalation every 4 hrs Active take 1 puff(s) by in halation every four hours as needed Albuterol Sulfate HFA 108 (90 Base) MCG/ACT 1 puff as needed Inhalation every 4 hrs Active Aspir-81 81 MG (16 sources) take 1 tablet by mouth once daily Aspir-81 81 MG 1 tablet Orally Once a day Active aspirin 81 mg delayed release oral tablet (2 sources) Platelet Aggregation Inhibitor, Nonsteroidal Anti-inflammatory Drug Start: 2019 take 81 mg by mouth once daily Aspirin Active 81 MG PO Daily March 27, 2020 12:00am atorvastatin 10 mg oral tablet (14 sources) HMG-CoA Reductase Inhibitor Start: 2017 take 1 tablet by mouth once daily Atorvastatin (Lipitor) 10 mg Tablet Active 10 MG PO Daily March 27, 2020 12:00am azithromycin 250 mg oral tablet (2 sources) Macrolide Antimicrobial Zithromax Z-Amado 250 MG as directed Orally Active benzonatate 200 mg oral capsule (2 sources) Non-narcotic Antitussive take 1 capsule by mouth every eight hours Benzonatate 200 MG 1 capsule Orally Three times a day Active ezetimibe 10 mg oral tablet (16 sources) Dietary Cholesterol Absorption Inhibitor Start: 2020 take 1 tablet by mouth every twenty-four hours Ezetimibe 10 MG 1 tablet Orally Once a day Feb, Active methylPREDNISolone 4 mg oral tablet (5 sources) Corticosteroid Start: 2021 methylPREDNISolone 4 MG as directed Orally as directed Aug, Active omeprazole 20 mg delayed release oral capsule (18 sources) Proton Pump Inhibitor Start: 2016 take 1 capsule by mouth every twenty-four hours Omeprazole 20 mg 1 capsule Orally Once a day for 90 days May, Active (5 sources) Active Triamcinolone (13 sources) Corticosteroid Start: 2020 Kenalog -40 mg Nov, 1 cc Problems Active Problems Problem Classification Problem Date Documented Date Episodic/Chronic Chronic obstructive pulmonary disease and bronchiectasis (4 sources) Bronchitis; Translations: [Bronchitis, not specified as acute or chronic] Episodic Diabetes mellitus without complication (13 sources) Hyperglycemia, unspecified; Translations: [Hyperglycemia] Onset: 04-30-2021 Resolved: 01-28-2022 Episodic Diseases of white blood cells (17 sources) Lymphocytosis; Translations: [Lymphocytosis (symptomatic)] Onset: 09-23-2021 Resolved: 02-28-2021 Chronic Disorders of lipid metabolism (20 sources) Hyperlipidemia; Translations: [Hyperlipidemia, unspecified] Onset: 02-28-2021 Resolved: 01-28-2022 Chronic Esophageal disorders (16 sources) Gastroesophageal reflux disease; Translations: [Gastro-esophageal reflux disease without esophagitis] Chronic Lymphadenitis (1 source) Localized enlarged lymph nodes Episodic Osteoarthritis (20 sources) Osteoarthritis; Translations: [Unspecified osteoarthritis, unspecified site] Onset: 08-15-2021 Resolved: 08-15-2021 Chronic Other and unspecified benign neoplasm (7 sources) Fibroma; Translations: [Benign neoplasm of connective and other soft tissue, unspecified] Episodic Other diseases of bladder and urethra (16 sources) Bladder irritability; Translations: [Other specified disorders of bladder] Chronic Other ear and sense organ disorders (16 sources) Hearing loss; Translations: [Unspecified hearing loss, unspecified ear] Chronic Other ear and sense organ disorders (16 sources) Decreased hearing ; Translations: [Unspecified hearing loss, bilateral] Chronic Other hereditary and degenerative nervous system conditions (5 sources) Essential tremor; Translations: [Essential tremor] Chronic Other liver diseases (5 sources) Elevated liver enzymes level; Translations: [Abnormal levels of other serum enzymes] Episodic Other nervous system disorders (1 source) Other chronic pain; Translations: [OTHER CHRONIC PAIN] Onset: 09-11-2022 Chronic Other non-traumatic joint disorders (9 sources) Arthropathy of spinal facet joint; Translations: [Other specific arthropathies, not elsewhere classified, other specified site] Chronic Other non-traumatic joint disorders (16 sources) Pain in right knee; Translations: [Right knee pain, unspecified chronicity] Episodic Other nutritional; endocrine; and metabolic disorders (18 sources) Obesity; Translations: [Obesity, unspecified] 04-03-2020 Chronic Other screening for suspected conditions (not mental disorders or infectious disease) (16 sources) Mammography abnormal; Translations: [Other abnormal and inconclusive findings on diagnostic imaging of breast] Episodic Pneumonia (except that caused by tuberculosis or sexually transmitted disease) (1 source) Bronchopneumonia, unspecified organism Episodic Residual codes; unclassified (16 sources) Insomnia; Translations: [Insomnia, unspecified] Episodic Spondylosis; intervertebral disc disorders; other back problems (20 sources) Degeneration of lumbar intervertebral disc; Translations: [Other intervertebral disc degeneration, lumbar region] Onset: 01-24-2022 Chronic Spondylosis; intervertebral disc disorders; other back problems (20 sources) Stenosis of lumbar vertebral foramen; Translations: [Spinal stenosis, lumbar region without neurogenic claudication] Onset: 01-24-2022 Resolved: 01-28-2022 Episodic Unclassified (4 sources) LOW BACK PAIN, UNSPECIFIED; Translations: [LOW BACK PAIN, UNSPECIFIED] Onset: 08-20-2022 Past or Other Problems Problem Classification Problem Date Documented Da te Episodic/Chronic Other and unspecified benign neoplasm (1 source) Benign neoplasm of connective and other soft tissue, unspecified Onset: 01-28-2022 Resolved: 01-28-2022 Episodic Other connective tissue disease (1 source) Sarcopenia; Translations: [SARCOPENIA] Onset: 01-24-2022 Episodic Other disorders of stomach and duodenum (1 source) Upset stomach; Translations: [Functional dyspepsia] Episodic Other ear and sense organ disorders (2 sources) Impacted cerumen; Translations: [Impacted cerumen, unspecified ear] Episodic Other nutritional; endocrine; and metabolic disorders (1 source) Abnormal weight loss Onset: 04-30-2021 Resolved: 04-30-2021 Episodic Unclassified (1 source) LOW BACK PAIN, UNSPECIFIED; Translations: [LOW BACK PAIN, UNSPECIFIED] Onset: 10-02-2022 Results Test Name Value Interpretation Reference Range Facility A1C with Estimated Average G kris 03-12-2023 Glucose [Mass/Vol] 126 mg/dL Normal [facility] Comment on above: Order Comment: Reaso n for Exam Hyperlipidemia Result Comment: PERF ORMED BY: [place] [address] PATHOLOGIST ROVING INSPECTOR BEV TALBERT M.D. Performed By: #### A 1C WT eA, LIPID, TSH3, CBC, CMP #### [address] HbA1c (Bld) [Mass fraction] 6.0 % High 4.3-5.6 [facility] Comment on above: Order Comment: Reaso n for Exam Hyperlipidemia Result Comment: Incr eased risk for diabetes: 5.7 - 6.4 diabetes: >6.4 glycemic control for adults with diabetes: <7.0 Performed By: #### A 1C WTH eA, LIPID, TSH3, CBC, CMP #### [facility] [address] Alanine aminotransferase [En zymatic activity/volume] in Serum or PlasmaOrdered By: Prem Goel on 03-12-2023 ALT [Catalytic activity/Vol] 11 U/L 7-52 [facility] Albumin [Mass/volume] in Ser um or Plasma by Bromocresol green (BCG) dye binding methoOrdered By: Prem Goel on 03-12-2023 Albumin BCG dye [Mass/Vol] 3.9 g/dL 3.5-5.7 [facility] Alkaline phosphatase [Enzyma tic activity/volume] in Serum or PlasmaOrdered By: Prem Goel on 03-12-2023 ALP [Catalytic activity/Vol] 89 U/L 34-104 [facility] Aspartate aminotransferase [ Enzymatic activity/volume] in Serum or PlasmaOrdered By: Prem Goel on 03-12-2023 AST [Catalytic activity/Vol] 15 U/L 13-39 [facility] Basophils Auto (Bld) [#/Vol] Ordered By: Prem Goel on 03-12-2023 Basophils (Bld) [#/Vol] 0.0 10*3/uL 0.0-0.2 [facility] Basophils/100 WBC Auto (Bld) Ordered By: Prem Goel on 03-12-2023 Basophils/100 WBC (Bld) 0.7 % . [facility] Bilirubin.total [Mass/volume ] in Serum or PlasmaOrdered By: Prem Goel on 03-12-2023 Bilirubin [Mass/Vol] 0.6 mg/dL 0.3-1.0 [facility] Calcium [Mass/volume] in Ser um or PlasmaOrdered By: Prem Goel on 03-12-2023 Calcium [Mass/Vol] 9.4 mg/dL 8.6-10.3 [facility] Carbon dioxide, total [Moles /volume] in Serum or PlasmaOrdered By: Prem Goel on 03-12-2023 CO2 [Moles/Vol] 28.2 mmol/L 21.0-31.0 [facility] Chloride [Moles/volume] in S dede or PlasmaOrdered By: Prem Goel on 03-12-2023 Chloride [Moles/Vol] 107 mmol/L 98-107 [facility] Cholesterol [Mass/volume] in Serum or PlasmaOrdered By: Prem Goel on 03-12-2023 Cholesterol [Mass/Vol] 228 mg/dL 140-200 [facility] Comment on above: Chol less than 200 m g/dl low riskChol 201-239 mg/dl borderline riskChol 240 mg/dl and greater high risk Cholesterol in LDL Calc [Mas s/Vol]Ordered By: Prem Goel on 03-12-2023 Cholesterol in LDL [Mass/Vol] 146 mg/dL 0-100 [facility] Comment on above: LDL ATP III CLASSIFI CATIONLDL less than 100 mg/dL OptimalLDL 100-129 mg/dL Near or above optimalLDL 130-159 mg/dL Borderline highLDL 160-189 mg/dL HighLDL greater than 189 mg/dL Very high Cholesterol in VLDL Calc [Ma ss/Vol]Ordered By: Prem Goel on 03-12-2023 Cholesterol in VLDL [Mass/Vol] 15 mg/dL [facility] Complete Blood Count Auto Di ffon 03-12-2023 Basophils (Bld) [#/Vol] 0.0 10*3/uL Normal 0.0-0.2 [facility] Comment on above: Order Comment: Reaso n for Exam Hyperlipidemia Result Comment: PERF ORMED BY: [place] [address] PATHOLOGIST ROVING INSPECTOR BEV TALBERT M.D. Performed By: #### C BC #### [facility] [address] [place] [address] [place] Basophils/100 WBC (Bld) 0.7 % Normal . [facility] Comment on above: Order Comment: Reaso n for Exam Hyperlipidemia Performed By: #### C BC #### [facility] [address] [place] [address] [place] Eosinophils (Bld) [#/Vol] 0.1 10*3/uL Normal 0.0-0.45 [facility] Comment on above: Order Comment: Reaso n for Exam Hyperlipidemia Performed By: #### C BC #### [place] [address] [place] Eosinophils/100 WBC (Bld) 2.3 % Normal . [facility] Comment on above: Order Comment: Reaso n for Exam Hyperlipidemia Performed By: #### C BC #### [address] Erythrocyte distribution width (RBC) [Ratio] 12.9 % Normal 11.9-15.3 [facility] Comment on above: Order Comment: Reaso n for Exam Hyperlipidemia Performed By: #### C BC #### [address] Hematocrit (Bld) [Volume fraction] 45.2 % Normal 34.0-46.4 [facility] Comment on above: Order Comment: Reaso n for Exam Hyperlipidemia Performed By: #### C BC #### [address] Hemoglobin (Bld) [Mass/Vol] 14.9 g/dL Normal 11.8-15.4 [facility] Comment on above: Order Comment: Reaso n for Exam Hyperlipidemia Performed By: #### C BC #### [address] Lymphocytes (Bld) [#/Vol] 2.6 10*3/uL Normal 1.00-4.8 [facility] Comment on above: Order Comment: Reaso n for Exam Hyperlipidemia Performed By: #### C BC #### [address] Lymphocytes/100 WBC (Bld) 42.3 % Normal . [facility] Comment on above: Order Comment: Reaso n for Exam Hyperlipidemia Performed By: #### C BC #### [address] MCH (RBC) [Entitic mass] 29.8 pg Normal 24.7-34.3 [facility] Comment on above: Order Comment: Reaso n for Exam Hyperlipidemia Performed By: #### C BC #### [address] [place] [address] [place] MCV (RBC) [Entitic vol] 90.5 fL Normal 80-100 [facility] Comment on above: Order Comment: Reaso n for Exam Hyperlipidemia Performed By: #### C BC #### [facility] [address] Mean Corpuscular HGB Conc 33.0 g/dL Normal 32.0-35.0 [facility] Comment on above: Order Comment: Reaso n for Exam Hyperlipidemia Performed By: #### C BC #### [facility] [address] Monocytes (Bld) [#/Vol] 0.6 10*3/uL Normal 0.0-0.8 [facility] Comment on above: Order Comment: Reaso n for Exam Hyperlipidemia Performed By: #### C BC #### [address] Monocytes/100 WBC (Bld) 9.1 % Normal . [facility] Comment on above: Order Comment: Reaso n for Exam Hyperlipidemia Performed By: #### C BC #### [place] [address] [place] Neutrophils (Bld) [#/Vol] 2.8 10*3/uL Normal 1.8-7.7 [facility] Comment on above: Order Comment: Reaso n for Exam Hyperlipidemia Performed By: #### C BC #### [place] [address] [place] Neutrophils/100 WBC (Bld) 45.6 % Normal . [facility] Comment on above: Order Comment: Reaso n for Exam Hyperlipidemia Performed By: #### C BC #### [facility] [address] [place] [address] [place] NRBC% 0.1 /100{WBC} Normal 0-0.5 [facility] Comment on above: Order Comment: Reaso n for Exam Hyperlipidemia Performed By: #### C BC #### [address] Platelet mean volume (Bld) [Entitic vol] 10.2 fL Normal 6.3-10.7 [facility] Comment on above: Order Comment: Reaso n for Exam Hyperlipidemia Performed By: #### C BC #### [facility] [address] Platelets (Bld) [#/Vol] 201 10*3/uL Normal 150-450 [facility] Comment on above: Order Comment: Reaso n for Exam Hyperlipidemia Performed By: #### C BC #### [facility] [address] RBC (Bld) [#/Vol] 4.99 10*6/uL Normal 3.60-5.00 [facility] Comment on above: Order Comment: Reaso n for Exam Hyperlipidemia Performed By: #### C BC #### [address] WBC (Bld) [#/Vol] 6.1 10*3/uL Normal 3.8-11.6 [facility] Comment on above: Order Comment: Reaso n for Exam Hyperlipidemia Performed By: #### C BC #### [address] Comprehensive Metabolic Pane [place] 03-12-2023 Albumin [Mass/Vol] 3.9 g/dL Normal 3.5-5.7 [facility] Comment on above: Order Comment: Reaso n for Exam Hyperlipidemia Performed By: #### A 1C WTH eA, LIPID, TSH3, CBC, CMP #### [facility] [address] Albumin/Globulin [Mass ratio] 1.8 {ratio} Normal [facility] Comment on above: Order Comment: Reaso n for Exam Hyperlipidemia Performed By: #### A 1C WTH eA, LIPID, TSH3, CBC, CMP #### [facility] [address] ALP [Catalytic activity/Vol] 89 U/L Normal 34-104 [facility] Comment on above: Order Comment: Reaso n for Exam Hyperlipidemia Performed By: #### A 1C WTH eA, LIPID, TSH3, CBC, CMP #### [facility] [address] [place] [address] [place] ALT [Catalytic activity/Vol] 11 U/L Normal 7-52 [facility] Comment on above: Order Comment: Reaso n for Exam Hyperlipidemia Performed By: #### A 1C WTH eA, LIPID, TSH3, CBC, CMP #### [facility] [address] Anion gap [Moles/Vol] 10.1 mmol/L Normal 6.0-15.0 [facility] Comment on above: Order Comment: Reaso n for Exam Hyperlipidemia Performed By: #### A 1C WTH eA, LIPID, TSH3, CBC, CMP #### [facility] [address] AST [Catalytic activity/Vol] 15 U/L Normal 13-39 [facility] Comment on above: Order Comment: Reaso n for Exam Hyperlipidemia Performed By: #### A 1C WTH eA, LIPID, TSH3, CBC, CMP #### [facility] [address] [place] [address] [place] Bilirubin [Mass/Vol] 0.6 mg/dL Normal 0.3-1.0 [facility] Comment on above: Order Comment: Reaso n for Exam Hyperlipidemia Performed By: #### A 1C WTH eA, LIPID, TSH3, CBC, CMP #### [facility] [address] [place] [address] [place] Calcium [Mass/Vol] 9.4 mg/dL Normal 8.6-10.3 [facility] Comment on above: Order Comment: Reaso n for Exam Hyperlipidemia Performed By: #### A 1C WTH eA, LIPID, TSH3, CBC, CMP #### [facility] [address] [place] [address] [place] Chloride [Moles/Vol] 107 mmol/L Normal 98-107 [facility] Comment on above: Order Comment: Reaso n for Exam Hyperlipidemia Performed By: #### A 1C WTH eA, LIPID, TSH3, CBC, CMP #### [facility] [address] [place] [address] [place] CO2 [Moles/Vol] 28.2 mmol/L Normal 21.0-31.0 [facility] Comment on above: Order Comment: Reaso n for Exam Hyperlipidemia Performed By: #### A 1C WTH eA, LIPID, TSH3, CBC, CMP #### [facility] [address] Creatinine [Mass/Vol] 0.77 mg/dL Normal 0.60-1.20 [facility] Comment on above: Order Comment: Reaso n for Exam Hyperlipidemia Performed By: #### A 1C WTH eA, LIPID, TSH3, CBC, CMP #### [facility] [address] GFR/1.73 sq M.predicted MDRD (S/P/Bld) [Vol rate/Area] mL/min/{1.73_m2} Normal [facility] Comment on above: Order Comment: Reaso n for Exam Hyperlipidemia Performed By: #### A 1C WTH eA, LIPID, TSH3, CBC, CMP #### [facility] [address] Globulin (S) [Mass/Vol] 2.2 g/dL Normal [facility] Comment on above: Order Comment: Reaso n for Exam Hyperlipidemia Performed By: #### A 1C WTH eA, LIPID, TSH3, CBC, CMP #### [facility] [address] Glucose [Mass/Vol] 96 mg/dL Normal 70-100 [facility] Comment on above: Order Comment: Reaso n for Exam Hyperlipidemia Result Comment: [place] Glucose Reference Range is dependent on time and content of last meal. Glucose of more than 200 mg/dL in a nonstressed, ambulatory subject supports the diagnosis of Diabetes Mellitus. ADA recommended reference range Performed By: #### A 1C WTH eA, LIPID, TSH3, CBC, CMP #### [facility] [address] Potassium [Moles/Vol] 4.3 mmol/L Normal 3.5-5.1 [facility] Comment on above: Order Comment: Reaso n for Exam Hyperlipidemia Performed By: #### A 1C WTH eA, LIPID, TSH3, CBC, CMP #### [facility] [address] [place] [address] [place] Protein [Mass/Vol] 6.1 g/dL Low 6.4-8.9 [facility] Comment on above: Order Comment: Reaso n for Exam Hyperlipidemia Performed By: #### A 1C WTH eA, LIPID, TSH3, CBC, CMP #### [facility] [address] Sodium [Moles/Vol] 141 mmol/L Normal 136-145 [facility] Comment on above: Order Comment: Reaso n for Exam Hyperlipidemia Performed By: #### A 1C WT eA, LIPID, TSH3, CBC, CMP #### [facility] [address] Urea nitrogen [Mass/Vol] 18 mg/dL Normal 7-25 [facility] Comment on above: Order Comment: Reaso n for Exam Hyperlipidemia Performed By: #### A 1C WT eA, LIPID, TSH3, CBC, CMP #### [facility] [address] Creatinine [Mass/volume] in Serum or PlasmaOrdered By: Prem Goel on 03-12-2023 Creatinine [Mass/Vol] 0.77 mg/dL 0.60-1.20 [facility] Eosinophils Auto (Bld) [#/Vo l]Ordered By: Prem Goel on 03-12-2023 Eosinophils (Bld) [#/Vol] 0.1 10*3/uL 0.0-0.45 [facility] Eosinophils/100 WBC Auto (Bl d)Ordered By: Prem Goel on 03-12-2023 Eosinophils/100 WBC (Bld) 2.3 % . [facility] Erythrocyte distribution wid th Auto (RBC) [Ratio]Ordered By: Prem Goel on 03-12-2023 Erythrocyte distribution width (RBC) [Ratio] 12.9 % 11.9-15.3 [facility] Globulin Calc (S) [Mass/Vol] Ordered By: Prem Goel on 03-12-2023 Globulin (S) [Mass/Vol] 2.2 g/dL [facility] Glucose [Mass/volume] in Ser um or PlasmaOrdered By: Prem Goel on 03-12-2023 Glucose [Mass/Vol] 96 mg/dL 70-100 [facility] Comment on above: ADA recommended refe rence rangeRandom Glucose Reference Range is dependent on time and content of last meal. Glucose of more than 200 mg/dL in a nonstressed, ambulatory subject supports the diagnosis of Diabetes Mellitus. Hematocrit Auto (Bld) [Volum e fraction]Ordered By: Prem Goel on 03-12-2023 Hematocrit (Bld) [Volume fraction] 45.2 % 34.0-46.4 [facility] Hemoglobin [Mass/volume] in BloodOrdered By: Prem Goel on 03-12-2023 Hemoglobin (Bld) [Mass/Vol] 14.9 g/dL 11.8-15.4 [facility] Leukocytes [#/volume] correc guillermina for nucleated erythrocytes in Blood by Automated counOrdered By: Prem Goel on 03-12-2023 WBC corrected for nucl RBC Auto (Bld) [#/Vol] 6.1 10*3/uL 3.8-11.6 [facility] Lipid Panelon 03-12-2023 Cholesterol [Mass/Vol] 228 mg/dL High 140-200 [facility] Comment on above: Order Comment: Reaso n for Exam Hyperlipidemia Result Comment: Chol less than 200 mg/dl low risk Chol 201-239 mg/dl borderline risk Chol 240 mg/dl and greater high risk Performed By: #### A 1C WTH eA, LIPID, TSH3, CBC, CMP #### [facility] [address] [place] [address] [place] Cholesterol in HDL [Mass/Vol] 66 mg/dL Normal 23-92 [facility] Comment on above: Order Comment: Reaso n for Exam Hyperlipidemia Result Comment: HDL CHOL ATP-III CLASSIFICATION Cardiovascular Risk HDL > or equal to 60 mg/dL LOW HDL < 40 mg/dL HIGH Performed By: #### A 1C WTH eA, LIPID, TSH3, CBC, CMP #### [facility] [address] [place] [address] [place] Cholesterol.total/Araceli sterol in HDL [Mass ratio] 3.5 {ratio} Normal <5.0 [facility] Comment on above: Order Comment: Reaso n for Exam Hyperlipidemia Performed By: #### A 1C WT eA, LIPID, TSH3, CBC, CMP #### [facility] [address] LDL Cholesterol,Calculated 146 mg/dL High 0-100 [facility] Comment on above: Order Comment: Reaso n for Exam Hyperlipidemia Result Comment: LDL ATP III CLASSIFICATION LDL less than 100 mg/dL Optimal LDL 100-129 mg/dL Near or above optimal LDL 130-159 mg/dL Borderline high LDL 160-189 mg/dL High LDL greater than 189 mg/dL Very high Performed By: #### A 1C WT eA, LIPID, TSH3, CBC, CMP #### [facility] [address] Triglyceride w/Reflex 78 mg/dL Normal 0-149 [facility] Comment on above: Order Comment: Reaso n for Exam Hyperlipidemia Result Comment: TRIG ATP III CLASSIFICATION TRIG less than 150 mg/dL Normal TRIG 150-199 mg/dL Borderline high TRIG 200-500 mg/dL High TRIG greater than 500 mg/dL Very high Standard traceable to the Center for Disease Conrtrol and Prevention (CDC) test method. Performed By: #### A 1C WT eA, LIPID, TSH3, CBC, CMP #### [facility] [address] VLDL CHOLESTEROL 15 mg/dL Normal [facility] Comment on above: Order Comment: Reaso n for Exam Hyperlipidemia Performed By: #### A 1C WT eA, LIPID, TSH3, CBC, CMP #### [facility] [address] [place] [address] [place] Lymphocytes Auto (Bld) [#/Vo l]Ordered By: Prem Goel on 03-12-2023 Lymphocytes (Bld) [#/Vol] 2.6 10*3/uL 1.00-4.8 [facility] Lymphocytes/100 WBC Auto (Bl d)Ordered By: Prem Goel on 03-12-2023 Lymphocytes/100 WBC (Bld) 42.3 % . [facility] MCH Auto (RBC) [Entitic mass ]Ordered By: Prem Goel on 03-12-2023 MCH (RBC) [Entitic mass] 29.8 pg 24.7-34.3 [facility] MCHC Auto (RBC) [Mass/Vol]Or dered By: Prem Goel on 03-12-2023 MCHC (RBC) [Mass/Vol] 33.0 g/dL 32.0-35.0 [facility] MCV Auto (RBC) [Entitic vol] Ordered By: Prem Goel on 03-12-2023 MCV (RBC) [Entitic vol] 90.5 fL 80-100 [facility] Monocytes Auto (Bld) [#/Vol] Ordered By: Prem Goel on 03-12-2023 Monocytes (Bld) [#/Vol] 0.6 10*3/uL 0.0-0.8 [facility] Monocytes/100 WBC Auto (Bld) Ordered By: Prem Goel on 03-12-2023 Monocytes/100 WBC (Bld) 9.1 % . [facility] Neutrophils Auto (Bld) [#/Vo l]Ordered By: Prem Goel on 03-12-2023 Neutrophils (Bld) [#/Vol] 2.8 10*3/uL 1.8-7.7 [facility] Neutrophils/100 WBC Auto (Bl d)Ordered By: Prem Goel on 03-12-2023 Neutrophils/100 WBC (Bld) 45.6 % . [facility] No Panel InformationOrdered By: Prem Goel on 03-12-2023 Estimated GFR (CKD-EPI) > 60.0 mL/Min [facility] Creatinine Clearance (Chem N/A [facility] Nucleated erythrocytes [Pres ence] in Blood by Automated countOrdered By: Prem Goel on 03-12-2023 Nucleated RBC Auto Ql (Bld) 0.1 /100{WBC} 0-0.5 [facility] Platelet mean volume Auto (B ld) [Entitic vol]Ordered By: Prem Goel on 03-12-2023 Platelet mean volume (Bld) [Entitic vol] 10.2 fL 6.3-10.7 [facility] Platelets Auto (Bld) [#/Vol] Ordered By: Prem Goel on 03-12-2023 Platelets (Bld) [#/Vol] 201 10*3/uL 150-450 [facility] Potassium [Moles/volume] in Serum or PlasmaOrdered By: Prem Goel on 03-12-2023 Potassium [Moles/Vol] 4.3 mmol/L 3.5-5.1 [facility] Protein [Mass/volume] in Ser um or PlasmaOrdered By: Prem Goel on 03-12-2023 Protein [Mass/Vol] 6.1 g/dL 6.4-8.9 [facility] RBC Auto (Bld) [#/Vol]Ordere d By: Prem Goel on 03-12-2023 RBC (Bld) [#/Vol] 4.99 10*6/uL 3.60-5.00 [facility] Serum or plasma albumin/glob ulin mass ratioOrdered By: Prem Goel on 03-12-2023 Albumin/Globulin [Mass ratio] 1.8 {ratio} [facility] Serum or plasma anion gap de terminationOrdered By: Prem Goel on 03-12-2023 Anion gap [Moles/Vol] 10.1 mmol/L 6.0-15.0 [facility] Serum or plasma high density lipoprotein (HDL) cholesterol measurementOrdered By: Prem Goel on 03-12-2023 Cholesterol in HDL [Mass/Vol] 66 mg/dL 23-92 [facility] Comment on above: HDL CHOL ATP-III CLA SSIFICATION Cardiovascular RiskHDL > or equal to 60 mg/dL LOWHDL < 40 mg/dL HIGH Serum or plasma total choles terol/high density lipoprotein (HDL) cholesterol mass ratOrdered By: Prem Goel on 03-12-2023 Cholesterol.total/Araceli sterol in HDL [Mass ratio] 3.5 {ratio} <5.0 [facility] Sodium [Moles/volume] in Ser um or PlasmaOrdered By: Prem Goel on 03-12-2023 Sodium [Moles/Vol] 141 mmol/L 136-145 [facility] Thyroid Stimulating Hormoneo n 03-12-2023 TSH Qn 1.91 m[IU]/L Normal 0.45-5.33 [facility] Comment on above: Order Comment: Reaso n for Exam Hyperlipidemia Result Comment: PERF ORMED BY: [place] [address] PATHOLOGIST ROVING INSPECTOR BEV TALBERT M.D. Performed By: #### A 1C WTH eA, LIPID, TSH3, CBC, CMP #### [address] Thyrotropin [Units/volume] i n Serum or PlasmaOrdered By: Prem Goel on 03-12-2023 TSH Qn 1.91 m[IU]/L 0.45-5.33 [facility] Triglyceride [Mass/volume] i n Serum or PlasmaOrdered By: Prem Goel on 03-12-2023 Triglyceride [Mass/Vol] 78 mg/dL 0-149 [facility] Comment on above: TRIG ATP III CLASSIF ICATIONTRIG less than 150 mg/dL NormalTRIG 150-199 mg/dL Borderline highTRIG 200-500 mg/dL High TRIG greater than 500 mg/dL Very highStandard traceable to the Center for Disease Conrtrol and Prevention (CDC) test method. Urea nitrogen [Mass/volume] in Serum or PlasmaOrdered By: Prem Goel on 03-12-2023 Urea nitrogen [Mass/Vol] 18 mg/dL 12-30 [facility] WBC Auto (Bld) [#/Vol]Ordere d By: Prem Goel on 03-12-2023 WBC (Bld) [#/Vol] 6.1 10*3/uL 3.8-11.6 [facility] A1C with Estimated Average G luon 10-30-2022 Glucose [Mass/Vol] 128 mg/dL Normal [facility] Comment on above: Order Comment: Reaso n for Exam Hyperlipidemia Result Comment: PERF ORMED BY: [place] [address] PATHOLOGIST ROVING INSPECTOR BEV TALBERT M.D. Performed By: #### A 1C WTH eA, LIPID, TSH3, CBC, CMP #### [facility] [address] HbA1c (Bld) [Mass fraction] 6.1 % High 4.3-5.6 [facility] Comment on above: Order Comment: Reaso n for Exam Hyperlipidemia Result Comment: Incr eased risk for diabetes: 5.7 - 6.4 diabetes: >6.4 glycemic control for adults with diabetes: <7.0 Performed By: #### A 1C [facility] eA, LIPID, TSH3, CBC, CMP #### [facility] [address] Complete Blood Count Auto Di ffon 10-30-2022 Basophils (Bld) [#/Vol] 0.0 10*3/uL Normal 0.0-0.2 [facility] Comment on above: Order Comment: Reaso n for Exam Hyperlipidemia Result Comment: PERF ORMED BY: [place] [address] PATHOLOGIST ROVING INSPECTOR BEV TALBERT M.D. Performed By: #### C BC #### [address] Basophils/100 WBC (Bld) 0.6 % Normal . [facility] Comment on above: Order Comment: Reaso n for Exam Hyperlipidemia Performed By: #### C BC #### [address] Eosinophils (Bld) [#/Vol] 0.5 10*3/uL High 0.0-0.45 [facility] Comment on above: Order Comment: Reaso n for Exam Hyperlipidemia Performed By: #### C BC #### [address] Eosinophils/100 WBC (Bld) 8.1 % Normal . [facility] Comment on above: Order Comment: Reaso n for Exam Hyperlipidemia Performed By: #### C BC #### [address] Erythrocyte distribution width (RBC) [Ratio] 13.8 % Normal 11.9-15.3 [facility] Comment on above: Order Comment: Reaso n for Exam Hyperlipidemia Performed By: #### C BC #### [address] Hematocrit (Bld) [Volume fraction] 43.9 % Normal 34.0-46.4 [facility] Comment on above: Order Comment: Reaso n for Exam Hyperlipidemia Performed By: #### C BC #### [address] Hemoglobin (Bld) [Mass/Vol] 14.6 g/dL Normal 11.8-15.4 [facility] Comment on above: Order Comment: Reaso n for Exam Hyperlipidemia Performed By: #### C BC #### [address] Lymphocytes (Bld) [#/Vol] 1.5 10*3/uL Normal 1.00-4.8 [facility] Comment on above: Order Comment: Reaso n for Exam Hyperlipidemia Performed By: #### C BC #### [address] Lymphocytes/100 WBC (Bld) 27.1 % Normal . [facility] Comment on above: Order Comment: Reaso n for Exam Hyperlipidemia Performed By: #### C BC #### [address] MCH (RBC) [Entitic mass] 30.0 pg Normal 24.7-34.3 [facility] Comment on above: Order Comment: Reaso n for Exam Hyperlipidemia Performed By: #### C BC #### [address] MCV (RBC) [Entitic vol] 90.4 fL Normal 80-100 [facility] Comment on above: Order Comment: Reaso n for Exam Hyperlipidemia Performed By: #### C BC #### [address] Mean Corpuscular HGB Conc 33.3 g/dL Normal 32.0-35.0 [facility] Comment on above: Order Comment: Reaso n for Exam Hyperlipidemia Performed By: #### C BC #### [facility] [address] [place] [address] [place] Monocytes (Bld) [#/Vol] 0.6 10*3/uL Normal 0.0-0.8 [facility] Comment on above: Order Comment: Reaso n for Exam Hyperlipidemia Performed By: #### C BC #### [facility] [address] [place] [address] [place] Monocytes/100 WBC (Bld) 10.7 % Normal . [facility] Comment on above: Order Comment: Reaso n for Exam Hyperlipidemia Performed By: #### C BC #### [place] [address] [place] Neutrophils (Bld) [#/Vol] 3.0 10*3/uL Normal 1.8-7.7 [facility] Comment on above: Order Comment: Reaso n for Exam Hyperlipidemia Performed By: #### C BC #### [place] [address] [place] Neutrophils/100 WBC (Bld) 53.5 % Normal . [facility] Comment on above: Order Comment: Reaso n for Exam Hyperlipidemia Performed By: #### C BC #### [facility] [address] [place] [address] NRBC% 0.1 /100{WBC} Normal 0-0.5 [facility] Comment on above: Order Comment: Reaso n for Exam Hyperlipidemia Performed By: #### C BC #### [facility] [address] [place] [address] [place] Platelet mean volume (Bld) [Entitic vol] 9.7 fL Normal 6.3-10.7 [facility] Comment on above: Order Comment: Reaso n for Exam Hyperlipidemia Performed By: #### C BC #### [facility] [address] [place] [address] [place] Platelets (Bld) [#/Vol] 196 10*3/uL Normal 150-450 [facility] Comment on above: Order Comment: Reaso n for Exam Hyperlipidemia Performed By: #### C BC #### [place] [address] [place] RBC (Bld) [#/Vol] 4.86 10*6/uL Normal 3.60-5.00 [facility] Comment on above: Order Comment: Reaso n for Exam Hyperlipidemia Performed By: #### C BC #### [facility] [address] WBC (Bld) [#/Vol] 5.7 10*3/uL Normal 3.8-11.6 [facility] Comment on above: Order Comment: Reaso n for Exam Hyperlipidemia Performed By: #### C BC #### [facility] [address] [place] [address] Comprehensive Metabolic Pane [place] 10-30-2022 Albumin [Mass/Vol] 3.6 g/dL Normal 3.5-5.7 [facility] Comment on above: Order Comment: Reaso n for Exam Hyperlipidemia Performed By: #### T SH3, CMP, LIPID #### [facility] [address] [place] [address] Albumin/Globulin [Mass ratio] 1.2 {ratio} Normal [facility] Comment on above: Order Comment: Reaso n for Exam Hyperlipidemia Performed By: #### T SH3, CMP, LIPID #### [facility] [address] [place] [address] ALP [Catalytic activity/Vol] 102 U/L Normal 34-104 [facility] Comment on above: Order Comment: Reaso n for Exam Hyperlipidemia Performed By: #### T SH3, CMP, LIPID #### [facility] [address] [place] [address] ALT [Catalytic activity/Vol] 14 U/L Normal 7-52 [facility] Comment on above: Order Comment: Reaso n for Exam Hyperlipidemia Performed By: #### T SH3, CMP, LIPID #### [facility] [address] [place] [address] Anion gap [Moles/Vol] 9.0 mmol/L Normal 6.0-15.0 [facility] Comment on above: Order Comment: Reaso n for Exam Hyperlipidemia Performed By: #### T SH3, CMP, LIPID #### [facility] [address] AST [Catalytic activity/Vol] 18 U/L Normal 13-39 [facility] Comment on above: Order Comment: Reaso n for Exam Hyperlipidemia Performed By: #### T SH3, CMP, LIPID #### [facility] [address] Bilirubin [Mass/Vol] 0.5 mg/dL Normal 0.3-1.0 [facility] Comment on above: Order Comment: Reaso n for Exam Hyperlipidemia Performed By: #### T SH3, CMP, LIPID #### [facility] [address] Calcium [Mass/Vol] 9.0 mg/dL Normal 8.6-10.3 [facility] Comment on above: Order Comment: Reaso n for Exam Hyperlipidemia Performed By: #### T SH3, CMP, LIPID #### [facility] [address] [place] [address] Chloride [Moles/Vol] 106 mmol/L Normal 98-107 [facility] Comment on above: Order Comment: Reaso n for Exam Hyperlipidemia Performed By: #### T SH3, CMP, LIPID #### [facility] [address] [place] [address] CO2 [Moles/Vol] 30.8 mmol/L Normal 21.0-31.0 [facility] Comment on above: Order Comment: Reaso n for Exam Hyperlipidemia Performed By: #### T SH3, CMP, LIPID #### [facility] [address] [place] [address] [place] Creatinine [Mass/Vol] 0.75 mg/dL Normal 0.60-1.20 [facility] Comment on above: Order Comment: Reaso n for Exam Hyperlipidemia Performed By: #### T SH3, CMP, LIPID #### [facility] [address] [place] [address] [place] GFR/1.73 sq M.predicted MDRD (S/P/Bld) [Vol rate/Area] mL/min/{1.73_m2} Normal [facility] Comment on above: Order Comment: Reaso n for Exam Hyperlipidemia Performed By: #### T SH3, CMP, LIPID #### [facility] [address] [place] [id number] [facility] Globulin (S) [Mass/Vol] 2.9 g/dL Normal [facility] Comment on above: Order Comment: Reaso n for Exam Hyperlipidemia Performed By: #### T SH3, CMP, LIPID #### [facility] [address] Glucose [Mass/Vol] 92 mg/dL Normal 70-100 [facility] Comment on above: Order Comment: Reaso n for Exam Hyperlipidemia Result Comment: [facility] Glucose Reference Range is dependent on time and content of last meal. Glucose of more than 200 mg/dL in a nonstressed, ambulatory subject supports the diagnosis of Diabetes Mellitus. ADA recommended reference range Performed By: #### T SH3, CMP, LIPID #### [facility] [address] Potassium [Moles/Vol] 4.8 mmol/L Normal 3.5-5.1 [facility] Comment on above: Order Comment: Reaso n for Exam Hyperlipidemia Performed By: #### T SH3, CMP, LIPID #### [facility] [address] [place] [address] Protein [Mass/Vol] 6.5 g/dL Normal 6.4-8.9 [facility] Comment on above: Order Comment: Reaso n for Exam Hyperlipidemia Performed By: #### T SH3, CMP, LIPID #### [facility] [address] [place] [address] [place] Sodium [Moles/Vol] 141 mmol/L Normal 136-145 [facility] Comment on above: Order Comment: Reaso n for Exam Hyperlipidemia Performed By: #### T SH3, CMP, LIPID #### [facility] [address] [place] [id number] [facility] Urea nitrogen [Mass/Vol] 18 mg/dL Normal 7-25 [facility] Comment on above: Order Comment: Reaso n for Exam Hyperlipidemia Performed By: #### T SH3, CMP, LIPID #### [facility] [address] Lipid Panelon 10-30-2022 Cholesterol [Mass/Vol] 218 mg/dL High 140-200 [facility] Comment on above: Order Comment: Reaso n for Exam Hyperlipidemia Result Comment: Chol less than 200 mg/dl low risk Chol 201-239 mg/dl borderline risk Chol 240 mg/dl and greater high risk Performed By: #### T SH3, CMP, LIPID #### [facility] [address] [place] [address] [place] Cholesterol in HDL [Mass/Vol] 51 mg/dL Normal 35-85 [facility] Comment on above: Order Comment: Reaso n for Exam Hyperlipidemia Result Comment: HDL CHOL ATP-III CLASSIFICATION Cardiovascular Risk HDL > or equal to 60 mg/dL LOW HDL < 40 mg/dL HIGH Performed By: #### T SH3, CMP, LIPID #### [facility] [address] [place] [address] [place] Cholesterol.total/Araceli sterol in HDL [Mass ratio] 4.3 {ratio} Normal <5.0 [facility] Comment on above: Order Comment: Reaso n for Exam Hyperlipidemia Performed By: #### T SH3, CMP, LIPID #### [facility] [address] [place] [address] [place] LDL Cholesterol,Calculated 151 mg/dL High 0-100 [facility] Comment on above: Order Comment: Reaso n for Exam Hyperlipidemia Result Comment: LDL ATP III CLASSIFICATION LDL less than 100 mg/dL Optimal LDL 100-129 mg/dL Near or above optimal LDL 130-159 mg/dL Borderline high LDL 160-189 mg/dL High LDL greater than 189 mg/dL Very high Performed By: #### T SH3, CMP, LIPID #### [facility] [address] [place] [address] [place] Triglyceride w/Reflex 78 mg/dL Normal 0-149 [facility] Comment on above: Order Comment: Reaso n for Exam Hyperlipidemia Result Comment: TRIG ATP III CLASSIFICATION TRIG less than 150 mg/dL Normal TRIG 150-199 mg/dL Borderline high TRIG 200-500 mg/dL High TRIG greater than 500 mg/dL Very high Standard traceable to the Center for Disease Conrtrol and Prevention (CDC) test method. Performed By: #### T SH3, CMP, LIPID #### [facility] [address] VLDL CHOLESTEROL 15 mg/dL Normal [facility] Comment on above: Order Comment: Reaso n for Exam Hyperlipidemia Performed By: #### T SH3, CMP, LIPID #### [address] Thyroid Stimulating Hormoneo n 10-30-2022 TSH Qn 1.72 m[IU]/L Normal 0.45-5.33 [facility] Comment on above: Order Comment: Reaso n for Exam Hyperlipidemia Result Comment: PERF ORMED BY: [place] [address] PATHOLOGIST ROVING INSPECTOR BEV TALBERT M.D. Performed By: #### T SH3, CMP, LIPID #### [address] A1C with Estimated Average G luon 04-29-2022 Glucose [Mass/Vol] 126 mg/dL Normal [facility] Comment on above: Order Comment: Reaso n for Exam Hyperglycemia Result Comment: PERF ORMED BY: [place] [address] PATHOLOGIST ROVING INSPECTOR BEV TALBERT M.D. Performed By: #### A 1C WTH eA, LIPID, TSH3, CBC, CMP #### [address] HbA1c (Bld) [Mass fraction] 6.0 % High 4.3-5.6 [facility] Comment on above: Order Comment: Reaso n for Exam Hyperglycemia Result Comment: Incr eased risk for diabetes: 5.7 - 6.4 diabetes: >6.4 glycemic control for adults with diabetes: <7.0 Performed By: #### A 1C WTH eA, LIPID, TSH3, CBC, CMP #### [facility] [address] [place] [address] Albumin [Mass/volume] in Ser um or PlasmaOrdered By: Prem Goel on 04-29-2022 Albumin [Mass/Vol] 3.4 g/dL 3.2-5.5 [facility] Basophils Auto (Bld) [#/Vol] Ordered By: Prem Goel on 04-29-2022 Basophils (Bld) [#/Vol] 0.0 10*3/uL 0.0-0.2 [facility] Basophils/100 WBC Auto (Bld) Ordered By: Prem Goel on 04-29-2022 Basophils/100 WBC (Bld) 0.3 % . [facility] Cholesterol [Mass/volume] in Serum or PlasmaOrdered By: Prem Goel on 04-29-2022 Cholesterol [Mass/Vol] 196 mg/dL 140-200 [facility] Comment on above: Chol less than 200 m g/dl low riskChol 201-239 mg/dl borderline riskChol 240 mg/dl and greater high risk Cholesterol in LDL Calc [Mas s/Vol]Ordered By: Prem Goel on 04-29-2022 Cholesterol in LDL [Mass/Vol] 109 mg/dL 0-100 [facility] Comment on above: LDL ATP III CLASSIFI CATIONLDL less than 100 mg/dL OptimalLDL 100-129 mg/dL Near or above optimalLDL 130-159 mg/dL Borderline highLDL 160-189 mg/dL HighLDL greater than 189 mg/dL Very high Cholesterol in VLDL Calc [Ma ss/Vol]Ordered By: Prem Goel on 04-29-2022 Cholesterol in VLDL [Mass/Vol] 10 mg/dL [facility] Complete Blood Count Auto Di ffon 04-29-2022 Basophils (Bld) [#/Vol] 0.0 10*3/uL Normal 0.0-0.2 [facility] Comment on above: Order Comment: Reaso n for Exam Hyperlipidemia Result Comment: PERF ORMED BY: [place] [address] PATHOLOGIST ROVING INSPECTOR BEV TALBERT M.D. Performed By: #### A 1C [facility] Garrett, LIPID, TSH3, CBC, CMP #### [facility] [address] Basophils/100 WBC (Bld) 0.3 % Normal . [facility] Comment on above: Order Comment: Reaso n for Exam Hyperlipidemia Performed By: #### A 1C [facility] Garrett, LIPID, TSH3, CBC, CMP #### [address] Eosinophils (Bld) [#/Vol] 0.1 10*3/uL Normal 0.0-0.45 [facility] Comment on above: Order Comment: Reaso n for Exam Hyperlipidemia Performed By: #### A 1C WTH eA, LIPID, TSH3, CBC, CMP #### [address] Eosinophils/100 WBC (Bld) 0.5 % Normal . [facility] Comment on above: Order Comment: Reaso n for Exam Hyperlipidemia Performed By: #### A 1C WTH eA, LIPID, TSH3, CBC, CMP #### [address] Erythrocyte distribution width (RBC) [Ratio] 13.4 % Normal 11.9-15.3 [facility] Comment on above: Order Comment: Reaso n for Exam Hyperlipidemia Performed By: #### A 1C WTH eA, LIPID, TSH3, CBC, CMP #### [address] Hematocrit (Bld) [Volume fraction] 46.2 % Normal 34.0-46.4 [facility] Comment on above: Order Comment: Reaso n for Exam Hyperlipidemia Performed By: #### A 1C WTH eA, LIPID, TSH3, CBC, CMP #### [address] Hemoglobin (Bld) [Mass/Vol] 14.9 g/dL Normal 11.8-15.4 [facility] Comment on above: Order Comment: Reaso n for Exam Hyperlipidemia Performed By: #### A 1C WTH eA, LIPID, TSH3, CBC, CMP #### [address] Lymphocytes (Bld) [#/Vol] 1.9 10*3/uL Normal 1.00-4.8 [facility] Comment on above: Order Comment: Reaso n for Exam Hyperlipidemia Performed By: #### A 1C WTH eA, LIPID, TSH3, CBC, CMP #### [facility] [address] Lymphocytes/100 WBC (Bld) 17.7 % Normal . [facility] Comment on above: Order Comment: Reaso n for Exam Hyperlipidemia Performed By: #### A 1C WT eA, LIPID, TSH3, CBC, CMP #### [facility] [address] MCH (RBC) [Entitic mass] 30.0 pg Normal 24.7-34.3 [facility] Comment on above: Order Comment: Reaso n for Exam Hyperlipidemia Performed By: #### A 1C [facility] eA, LIPID, TSH3, CBC, CMP #### [facility] [address] MCV (RBC) [Entitic vol] 93.4 fL Normal 80-100 [facility] Comment on above: Order Comment: Reaso n for Exam Hyperlipidemia Performed By: #### A 1C [facility] eA, LIPID, TSH3, CBC, CMP #### [address] Mean Corpuscular HGB Conc 32.1 g/dL Normal 32.0-35.0 [facility] Comment on above: Order Comment: Reaso n for Exam Hyperlipidemia Performed By: #### A 1C [facility] eA, LIPID, TSH3, CBC, CMP #### [address] Monocytes (Bld) [#/Vol] 1.1 10*3/uL High 0.0-0.8 [facility] Comment on above: Order Comment: Reaso n for Exam Hyperlipidemia Performed By: #### A 1C WT eA, LIPID, TSH3, CBC, CMP #### [place] [id number] [place] Monocytes/100 WBC (Bld) 10.4 % Normal . [facility] Comment on above: Order Comment: Reaso n for Exam Hyperlipidemia Performed By: #### A 1C WT eA, LIPID, TSH3, CBC, CMP #### [place] [address] [place] Neutrophils (Bld) [#/Vol] 7.6 10*3/uL Normal 1.8-7.7 [facility] Comment on above: Order Comment: Reaso n for Exam Hyperlipidemia Performed By: #### A 1C WTH eA, LIPID, TSH3, CBC, CMP #### [facility] [address] Neutrophils/100 WBC (Bld) 71.1 % Normal . [facility] Comment on above: Order Comment: Reaso n for Exam Hyperlipidemia Performed By: #### A 1C WTH eA, LIPID, TSH3, CBC, CMP #### [facility] [address] [place] [address] [place] Nucleated RBC/100 WBC (Bld) [Ratio] 0.0 % Normal 0-0.5 [facility] Comment on above: Order Comment: Reaso n for Exam Hyperlipidemia Performed By: #### A 1C WTH eA, LIPID, TSH3, CBC, CMP #### [facility] [address] [place] [address] [place] Platelet mean volume (Bld) [Entitic vol] 10.2 fL Normal 6.3-10.7 [facility] Comment on above: Order Comment: Reaso n for Exam Hyperlipidemia Performed By: #### A 1C WTH eA, LIPID, TSH3, CBC, CMP #### [facility] [address] [place] [address] [place] Platelets (Bld) [#/Vol] 238 10*3/uL Normal 150-450 [facility] Comment on above: Order Comment: Reaso n for Exam Hyperlipidemia Performed By: #### A 1C WTH eA, LIPID, TSH3, CBC, CMP #### [facility] [address] [place] [address] [place] RBC (Bld) [#/Vol] 4.95 10*6/uL Normal 3.60-5.00 [facility] Comment on above: Order Comment: Reaso n for Exam Hyperlipidemia Performed By: #### A 1C WTH eA, LIPID, TSH3, CBC, CMP #### [facility] [address] [place] [address] [place] WBC (Bld) [#/Vol] 10.7 10*3/uL Normal 4.5-11.0 [facility] Comment on above: Order Comment: Reaso n for Exam Hyperlipidemia Performed By: #### A 1C WTH eA, LIPID, TSH3, CBC, CMP #### [facility] [address] Comprehensive Metabolic Pane [place] 04-29-2022 Albumin [Mass/Vol] 3.4 g/dL Normal 3.2-5.5 [facility] Comment on above: Order Comment: Reaso n for Exam Hyperlipidemia Performed By: #### A 1C WT eA, LIPID, TSH3, CBC, CMP #### [facility] [address] Albumin/Globulin [Mass ratio] 1.0 {ratio} Normal [facility] Comment on above: Order Comment: Reaso n for Exam Hyperlipidemia Performed By: #### A 1C WT eA, LIPID, TSH3, CBC, CMP #### [facility] [address] ALP [Catalytic activity/Vol] 100 U/L High 32-92 [facility] Comment on above: Order Comment: Reaso n for Exam Hyperlipidemia Performed By: #### A 1C WT eA, LIPID, TSH3, CBC, CMP #### [facility] [address] ALT [Catalytic activity/Vol] 18 U/L Normal 10-60 [facility] Comment on above: Order Comment: Reaso n for Exam Hyperlipidemia Performed By: #### A 1C WTH eA, LIPID, TSH3, CBC, CMP #### [facility] [address] [place] [id number] [facility] Anion gap [Moles/Vol] 10.5 mmol/L Normal 6.0-15.0 [facility] Comment on above: Order Comment: Reaso n for Exam Hyperlipidemia Performed By: #### A 1C WTH eA, LIPID, TSH3, CBC, CMP #### [facility] [address] AST [Catalytic activity/Vol] 19 U/L Normal 10-42 [facility] Comment on above: Order Comment: Reaso n for Exam Hyperlipidemia Performed By: #### A 1C WT eA, LIPID, TSH3, CBC, CMP #### [facility] [address] Bilirubin [Mass/Vol] 0.8 mg/dL Normal 0.3-1.2 [facility] Comment on above: Order Comment: Reaso n for Exam Hyperlipidemia Performed By: #### A 1C WT eA, LIPID, TSH3, CBC, CMP #### [facility] [address] Calcium [Mass/Vol] 9.2 mg/dL Normal 8.2-10.2 [facility] Comment on above: Order Comment: Reaso n for Exam Hyperlipidemia Performed By: #### A 1C WT eA, LIPID, TSH3, CBC, CMP #### [facility] [address] Chloride [Moles/Vol] 102 mmol/L Normal 95-114 [facility] Comment on above: Order Comment: Reaso n for Exam Hyperlipidemia Performed By: #### A 1C WT eA, LIPID, TSH3, CBC, CMP #### [facility] [address] [place] [address] [place] CO2 [Moles/Vol] 28.5 mmol/L Normal 22.0-30.0 [facility] Comment on above: Order Comment: Reaso n for Exam Hyperlipidemia Performed By: #### A 1C WTH eA, LIPID, TSH3, CBC, CMP #### [facility] [address] [place] [id number] [place] Creatinine [Mass/Vol] 0.80 mg/dL Normal 0.44-1.03 [facility] Comment on above: Order Comment: Reaso n for Exam Hyperlipidemia Performed By: #### A 1C WTH eA, LIPID, TSH3, CBC, CMP #### [facility] [address] [place] [address] [place] Estimated GFR ( Reshma > 60 Normal [facility] Comment on above: Order Comment: Reaso n for Exam Hyperlipidemia Result Comment: GFR estimated reference range: According to KDOQI guidelines, <60 ml/min/1.73m2 is sufficient to diagnose a patient with chronic kidney disease. Performed By: #### A 1C WTH eA, LIPID, TSH3, CBC, CMP #### [facility] [address] Estimated GFR (Non- Am > 60 Normal [facility] Comment on above: Order Comment: Reaso n for Exam Hyperlipidemia Performed By: #### A 1C WTH eA, LIPID, TSH3, CBC, CMP #### [facility] [address] Globulin (S) [Mass/Vol] 3.3 g/dL Normal [facility] Comment on above: Order Comment: Reaso n for Exam Hyperlipidemia Performed By: #### A 1C WTH eA, LIPID, TSH3, CBC, CMP #### [facility] [address] Glucose [Mass/Vol] 111 mg/dL High 70-100 [facility] Comment on above: Order Comment: Reaso n for Exam Hyperlipidemia Result Comment: [facility] Glucose Reference Range is dependent on time and content of last meal. Glucose of more than 200 mg/dL in a nonstressed, ambulatory subject supports the diagnosis of Diabetes Mellitus. ADA recommended reference range Performed By: #### A 1C WTH eA, LIPID, TSH3, CBC, CMP #### [address] Potassium [Moles/Vol] 4.0 mmol/L Normal 3.5-5.1 [facility] Comment on above: Order Comment: Reaso n for Exam Hyperlipidemia Performed By: #### A 1C WTH eA, LIPID, TSH3, CBC, CMP #### [facility] [address] Protein [Mass/Vol] 6.7 g/dL Normal 6.1-7.9 [facility] Comment on above: Order Comment: Reaso n for Exam Hyperlipidemia Performed By: #### A 1C WTH eA, LIPID, TSH3, CBC, CMP #### [facility] [address] [place] [address] [place] Sodium [Moles/Vol] 137 mmol/L Normal 136-146 [facility] Comment on above: Order Comment: Reaso n for Exam Hyperlipidemia Performed By: #### A 1C [facility] eA, LIPID, TSH3, CBC, CMP #### [facility] [address] [place] [id number] [place] Urea nitrogen [Mass/Vol] 14 mg/dL Normal 9-23 [facility] Comment on above: Order Comment: Reaso n for Exam Hyperlipidemia Performed By: #### A 1C WT eA, LIPID, TSH3, CBC, CMP #### [facility] [address] [place] [id number] [place] Creatinine and Glomerular fi ltration rate.predicted panel (S/P/Bld)Ordered By: Prem Goel on 04-29-2022 Creatinine [Mass/Vol] 0.80 mg/dL 0.44-1.03 [facility] Eosinophils Auto (Bld) [#/Vo l]Ordered By: Prem Goel on 04-29-2022 Eosinophils (Bld) [#/Vol] 0.1 10*3/uL 0.0-0.45 [facility] Eosinophils/100 WBC Auto (Bl d)Ordered By: Prem Goel on 04-29-2022 Eosinophils/100 WBC (Bld) 0.5 % . [facility] Erythrocyte distribution wid th Auto (RBC) [Ratio]Ordered By: Prem Goel on 04-29-2022 Erythrocyte distribution width (RBC) [Ratio] 13.4 % 11.9-15.3 [facility] Estimated glomerular filtrat ion rate (GFR) non- AmericanOrdered By: Prem Goel on 04-29-2022 GFR/1.73 sq M.predicted among non-blacks MDRD (S/P/Bld) [Vol rate/Area] > 60 mL/Min [facility] Globulin Calc (S) [Mass/Vol] Ordered By: Prem Goel on 04-29-2022 Globulin (S) [Mass/Vol] 3.3 g/dL [facility] Hematocrit Auto (Bld) [Volum e fraction]Ordered By: Prem Goel on 04-29-2022 Hematocrit (Bld) [Volume fraction] 46.2 % 34.0-46.4 [facility] Hemoglobin [Mass/volume] in BloodOrdered By: Prem Goel on 04-29-2022 Hemoglobin (Bld) [Mass/Vol] 14.9 g/dL 11.8-15.4 [facility] - Hematology and Cell countsOrdered By: Prem Goel on 04-29-2022 Nucleated RBC/100 WBC (Bld) [Ratio] 0.0 % 0-0.5 [facility] Leukocytes [#/volume] in Blo od by Automated countOrdered By: Prem Goel on 04-29-2022 WBC (Bld) [#/Vol] 10.7 10*3/uL 4.5-11.0 [facility] Lipid Panelon 04-29-2022 Cholesterol [Mass/Vol] 196 mg/dL Normal 140-200 [facility] Comment on above: Order Comment: Reaso n for Exam Hyperlipidemia Result Comment: Chol less than 200 mg/dl low risk Chol 201-239 mg/dl borderline risk Chol 240 mg/dl and greater high risk Performed By: #### A 1C WTH eA, LIPID, TSH3, CBC, CMP #### [facility] [address] [place] [id number] [place] Cholesterol in HDL [Mass/Vol] 76 mg/dL Normal 35-85 [facility] Comment on above: Order Comment: Reaso n for Exam Hyperlipidemia Result Comment: HDL CHOL ATP-III CLASSIFICATION Cardiovascular Risk HDL > or equal to 60 mg/dL LOW HDL < 40 mg/dL HIGH Performed By: #### A 1C WTH eA, LIPID, TSH3, CBC, CMP #### [facility] [address] [place] [address] [place] Cholesterol.total/Araceli sterol in HDL [Mass ratio] 2.6 {ratio} Normal <5.0 [facility] Comment on above: Order Comment: Reaso n for Exam Hyperlipidemia Performed By: #### A 1C WTH eA, LIPID, TSH3, CBC, CMP #### [facility] [address] [place] [address] [place] LDL Cholesterol,Calculated 109 mg/dL High 0-100 [facility] Comment on above: Order Comment: Reaso n for Exam Hyperlipidemia Result Comment: LDL ATP III CLASSIFICATION LDL less than 100 mg/dL Optimal LDL 100-129 mg/dL Near or above optimal LDL 130-159 mg/dL Borderline high LDL 160-189 mg/dL High LDL greater than 189 mg/dL Very high Performed By: #### A 1C WTH eA, LIPID, TSH3, CBC, CMP #### [facility] [address] Triglyceride w/Reflex 53 mg/dL Normal 35-149 [facility] Comment on above: Order Comment: Reaso n for Exam Hyperlipidemia Result Comment: TRIG ATP III CLASSIFICATION TRIG less than 150 mg/dL Normal TRIG 150-199 mg/dL Borderline high TRIG 200-500 mg/dL High TRIG greater than 500 mg/dL Very high Standard traceable to the Center for Disease Conrtrol and Prevention (CDC) test method. Performed By: #### A 1C WTH eA, LIPID, TSH3, CBC, CMP #### [facility] [address] VLDL CHOLESTEROL 10 mg/dL Normal [facility] Comment on above: Order Comment: Reaso n for Exam Hyperlipidemia Performed By: #### A 1C WTH eA, LIPID, TSH3, CBC, CMP #### [facility] [address] [place] [address] [place] Lymphocytes Auto (Bld) [#/Vo l]Ordered By: Prem Goel on 04-29-2022 Lymphocytes (Bld) [#/Vol] 1.9 10*3/uL 1.00-4.8 [facility] Lymphocytes/100 WBC Auto (Bl d)Ordered By: Prem Goel on 04-29-2022 Lymphocytes/100 WBC (Bld) 17.7 % . [facility] MCH Auto (RBC) [Entitic mass ]Ordered By: Prem Goel on 04-29-2022 MCH (RBC) [Entitic mass] 30.0 pg 24.7-34.3 [facility] MCHC Auto (RBC) [Mass/Vol]Or dered By: Prem Goel on 04-29-2022 MCHC (RBC) [Mass/Vol] 32.1 g/dL 32.0-35.0 [facility] MCV Auto (RBC) [Entitic vol] Ordered By: Prem Goel on 04-29-2022 MCV (RBC) [Entitic vol] 93.4 fL 80-100 [facility] Monocytes Auto (Bld) [#/Vol] Ordered By: Prem Goel on 04-29-2022 Monocytes (Bld) [#/Vol] 1.1 10*3/uL 0.0-0.8 [facility] Monocytes/100 WBC Auto (Bld) Ordered By: Prem Goel on 04-29-2022 Monocytes/100 WBC (Bld) 10.4 % . [facility] Neutrophils Auto (Bld) [#/Vo l]Ordered By: Prem Goel on 04-29-2022 Neutrophils (Bld) [#/Vol] 7.6 10*3/uL 1.8-7.7 [facility] Neutrophils/100 WBC Auto (Bl d)Ordered By: Prem Goel on 04-29-2022 Neutrophils/100 WBC (Bld) 71.1 % . [facility] No Panel InformationOrdered By: Prem Goel on 04-29-2022 Estimated GFR () > 60 mL/Min [facility] Comment on above: GFR estimated refere nce range: According to KDOQI guidelines, <60 ml/min/1.73m2 is sufficient to diagnose a patient with chronic kidney disease. Pharmacy Creatinine Clearance (Chem N/A [facility] Platelet mean volume Auto (B ld) [Entitic vol]Ordered By: Prem Goel on 04-29-2022 Platelet mean volume (Bld) [Entitic vol] 10.2 fL 6.3-10.7 [facility] Platelets Auto (Bld) [#/Vol] Ordered By: Prem Goel on 04-29-2022 Platelets (Bld) [#/Vol] 238 10*3/uL 150-450 [facility] Protein [Mass/volume] in Ser um or PlasmaOrdered By: Prem Goel on 04-29-2022 Protein [Mass/Vol] 6.7 g/dL 6.1-7.9 [facility] RBC Auto (Bld) [#/Vol]Ordere d By: Prem Goel on 04-29-2022 RBC (Bld) [#/Vol] 4.95 10*6/uL 3.60-5.00 [facility] Serum or plasma alanine tobias otransferase measurement without P-5'-P (enzymatic activiOrdered By: Prem Goel on 04-29-2022 ALT No additional P-5'-P [Catalytic activity/Vol] 18 U/L 10-60 [facility] Serum or plasma albumin/glob ulin mass ratioOrdered By: Prem Goel on 04-29-2022 Albumin/Globulin [Mass ratio] 1.0 {ratio} [facility] Serum or plasma alkaline joshua sphatase measurement (enzymatic activity/volume)Ordered By: Prem Goel on 04-29-2022 ALP [Catalytic activity/Vol] 100 U/L 32-92 [facility] Serum or plasma anion gap de terminationOrdered By: Prem Goel on 04-29-2022 Anion gap [Moles/Vol] 10.5 mmol/L 6.0-15.0 [facility] Serum or plasma aspartate am inotransferase measurement (enzymatic activity/volume)Ordered By: Prem Goel on 04-29-2022 AST [Catalytic activity/Vol] 19 U/L 10-42 [facility] Serum or plasma calcium erica urement (mass/volume)Ordered By: Prem Goel on 04-29-2022 Calcium [Mass/Vol] 9.2 mg/dL 8.2-10.2 [facility] Serum or plasma chloride omaira surement (moles/volume)Ordered By: Prem Goel on 04-29-2022 Chloride [Moles/Vol] 102 mmol/L 95-114 [facility] Serum or plasma glucose erica urement (mass/volume)Ordered By: Prem Goel on 04-29-2022 Glucose [Mass/Vol] 111 mg/dL 70-100 [facility] Comment on above: ADA recommended refe rence rangeRandom Glucose Reference Range is dependent on time and content of last meal. Glucose of more than 200 mg/dL in a nonstressed, ambulatory subject supports the diagnosis of Diabetes Mellitus. Serum or plasma high density lipoprotein (HDL) cholesterol measurementOrdered By: Prem Goel on 04-29-2022 Cholesterol in HDL [Mass/Vol] 76 mg/dL 35-85 [facility] Comment on above: HDL CHOL ATP-III CLA SSIFICATION Cardiovascular RiskHDL > or equal to 60 mg/dL LOWHDL < 40 mg/dL HIGH Serum or plasma potassium me asurement (moles/volume)Ordered By: Prem Goel on 04-29-2022 Potassium [Moles/Vol] 4.0 mmol/L 3.5-5.1 [facility] Serum or plasma sodium measu rement (moles/volume)Ordered By: Prem Goel on 04-29-2022 Sodium [Moles/Vol] 137 mmol/L 136-146 [facility] Serum or plasma total biliru bin measurement (mass/volume)Ordered By: Prem Goel on 04-29-2022 Bilirubin [Mass/Vol] 0.8 mg/dL 0.3-1.2 [facility] Serum or plasma total carbon dioxide measurement (moles/volume)Ordered By: Prem Goel on 04-29-2022 CO2 [Moles/Vol] 28.5 mmol/L 22.0-30.0 [facility] Serum or plasma total choles terol/high density lipoprotein (HDL) cholesterol mass ratOrdered By: Prem Goel on 04-29-2022 Cholesterol.total/Araceli sterol in HDL [Mass ratio] 2.6 {ratio} <5.0 [facility] Serum or plasma urea nitroge n measurement (mass/volume)Ordered By: Prem Goel on 04-29-2022 Urea nitrogen [Mass/Vol] 14 mg/dL - [facility] TSH DL <= 0.005 mIU/L QnOrde red By: Prem Goel on 04-29-2022 TSH Qn 1.74 m[IU]/L 0.45-5.33 [facility] Thyroid Stimulating Hormoneo n 04-29-2022 TSH Qn 1.74 m[IU]/L Normal 0.45-5.33 [facility] Comment on above: Order Comment: Reaso n for Exam Hyperlipidemia Result Comment: PERF ORMED BY: [place] [address] PATHOLOGIST ROVING INSPECTOR BEV TALBERT M.D. Performed By: #### A 1C [facility] eA, LIPID, TSH3, CBC, CMP #### [address] Triglyceride [Mass/volume] i n Serum or PlasmaOrdered By: Prem Goel on 04-29-2022 Triglyceride [Mass/Vol] 53 mg/dL 35-149 [facility] Comment on above: TRIG ATP III CLASSIF ICATIONTRIG less than 150 mg/dL NormalTRIG 150-199 mg/dL Borderline highTRIG 200-500 mg/dL High TRIG greater than 500 mg/dL Very highStandard traceable to the Center for Disease Conrtrol and Prevention (CDC) test method. A1C HEMOGLOBINon 04-30-2021 HbA1c (Bld) [Mass fraction] 5.8 % [facility] Other HbA1c (Bld) [Mass fraction]o n 04-30-2021 A1C HEMOGLOBIN [facility] [employer] Other [facility] CARDIAC STRESS/REST (DOUGLAS CARDIAL PERFUSION/MIBI)on 04-09-2020 [facility] CARDIAC STRESS/REST (MYOCARDIAL PERFUSION/MIBI) Patient Name: ISAIAS WILKERSON STUDY: MYOCARDIAL PERFUSION STRESS TEST WITH LEXISCAN Performing facility: [facility], [address] [place] [address], [address] Provider: WP SMYTH PCP: Dr. PREM GOEL Supervising provider: WP SMYTH INDICATION: CP HISTORY: Gender: F; Age: 84 y/o ; Height: 157.48 cm; Weight: 78.4050418 kg. High Cholesterol; CP Family HX CAD; Denies smoking. COMPARISON: Previous nuclear testing completed at [facility]. ACCESSION NUMBER(S): [id number] ORDERING CLINICIAN: MATT SMYTH TECHNIQUE: ONE DAY protocol. Stress injection: Date:04/09/2020, 33.8 mCi of Myoview IV 20 seconds after rapid injection of Lexiscan. Rest injection: Date: 04/09/2020, 11.9 mCi of Myoview IV at rest. The patient had a rapid injection of 0.4 mg of Lexiscan IV over 10 seconds. Imaging was performed by gated tomographic technique. Reason for Lexiscan: BACK PAIN STRESS TEST DATA: Resting heart rate was 56 BPM. Resting blood pressure was 132/84 mmHg. Peak blood pressure was 110/62 mmHg. Peak heart rate was 83 BPM. TEST TERMINATED DUE TO: Protocol completed FINDINGS: STRESS TEST RESULTS: Resting electrocardiogram revealed normal sinus rhythm without ST-T changes. There were no significant ischemic ECG changes or dysrhythmias. The patient did not have chest pains/symptoms during procedure. There was a normal recovery phase. IMAGING RESULTS: Image quality was good. Rest and stress tomographic images were reviewed and revealed normal perfusion without evidence of ischemia, myocardial infarction, or left ventricular dilatation with stress. Overall left ventricular systolic function appeared to be normal without regional wall motion abnormalities. Ejection fraction was 53%. TID is 0.87 and is normal. There were no evidence of attenuation artifact. IMPRESSION: Normal Lexiscan Myoview cardiac perfusion stress test. No evidence of ischemia or myocardial infarction by perfusion imaging. Normal left ventricular systolic function, ejection fraction 53%. No previous study available for comparison. Electronically signed by: BRIELLE DUVAL MD Normal [facility] CARDIAC STRESS/REST INJE CTIONon 04-09-2020 [facility] CARDIAC STRESS/REST INJECTION Patient Name: ISAIAS WILKERSON STUDY: MYOCARDIAL PERFUSION STRESS TEST WITH LEXISCAN Performing facility: [facility], [address] [place] [address], [address], [address] Provider: WP SMYTH PCP: Dr. PREM GOEL Supervising provider: WP SMYTH INDICATION: CP HISTORY: Gender: F; Age: 84 y/o ; Height: 157.48 cm; Weight: 78.8882844 kg. High Cholesterol; CP Family HX CAD; Denies smoking. COMPARISON: Previous nuclear testing completed at [facility]. ACCESSION NUMBER(S): [id number] ORDERING CLINICIAN: MATT SMYTH TECHNIQUE: ONE DAY protocol. Stress injection: Date:04/09/2020, 33.8 mCi of Myoview IV 20 seconds after rapid injection of Lexiscan. Rest injection: Date: 04/09/2020, 11.9 mCi of Myoview IV at rest. The patient had a rapid injection of 0.4 mg of Lexiscan IV over 10 seconds. Imaging was performed by gated tomographic technique. Reason for Lexiscan: BACK PAIN STRESS TEST DATA: Resting heart rate was 56 BPM. Resting blood pressure was 132/84 mmHg. Peak blood pressure was 110/62 mmHg. Peak heart rate was 83 BPM. TEST TERMINATED DUE TO: Protocol completed FINDINGS: STRESS TEST RESULTS: Resting electrocardiogram revealed normal sinus rhythm without ST-T changes. There were no significant ischemic ECG changes or dysrhythmias. The patient did not have chest pains/symptoms during procedure. There was a normal recovery phase. IMAGING RESULTS: Image quality was good. Rest and stress tomographic images were reviewed and revealed normal perfusion without evidence of ischemia, myocardial infarction, or left ventricular dilatation with stress. Overall left ventricular systolic function appeared to be normal without regional wall motion abnormalities. Ejection fraction was 53%. TID is 0.87 and is normal. There were no evidence of attenuation artifact. IMPRESSION: Normal Lexiscan Myoview cardiac perfusion stress test. No evidence of ischemia or myocardial infarction by perfusion imaging. Normal left ventricular systolic function, ejection fraction 53%. No previous study available for comparison. Electronically signed by: BRIELLE DUVAL MD Normal [facility] PART 2 STRESS OR REST (N O CHARGE)on 04-09-2020 [facility] PART 2 STRESS OR REST (NO CHARGE) Patient Name: ISAIAS WILKERSON STUDY: MYOCARDIAL PERFUSION STRESS TEST WITH LEXISCAN Performing facility: [facility], [address] [place] [address], [address], [address] Provider: WP SMYTH PCP: Dr. PREM GOEL Supervising provider: WP SMYTH INDICATION: CP HISTORY: Gender: F; Age: 84 y/o ; Height: 157.48 cm; Weight: 78.8702886 kg. High Cholesterol; CP Family HX CAD; Denies smoking. COMPARISON: Previous nuclear testing completed at [facility]. ACCESSION NUMBER(S): [id number] ORDERING CLINICIAN: MATT SMYTH TECHNIQUE: ONE DAY protocol. Stress injection: Date:04/09/2020, 33.8 mCi of Myoview IV 20 seconds after rapid injection of Lexiscan. Rest injection: Date: 04/09/2020, 11.9 mCi of Myoview IV at rest. The patient had a rapid injection of 0.4 mg of Lexiscan IV over 10 seconds. Imaging was performed by gated tomographic technique. Reason for Lexiscan: BACK PAIN STRESS TEST DATA: Resting heart rate was 56 BPM. Resting blood pressure was 132/84 mmHg. Peak blood pressure was 110/62 mmHg. Peak heart rate was 83 BPM. TEST TERMINATED DUE TO: Protocol completed FINDINGS: STRESS TEST RESULTS: Resting electrocardiogram revealed normal sinus rhythm without ST-T changes. There were no significant ischemic ECG changes or dysrhythmias. The patient did not have chest pains/symptoms during procedure. There was a normal recovery phase. IMAGING RESULTS: Image quality was good. Rest and stress tomographic images were reviewed and revealed normal perfusion without evidence of ischemia, myocardial infarction, or left ventricular dilatation with stress. Overall left ventricular systolic function appeared to be normal without regional wall motion abnormalities. Ejection fraction was 53%. TID is 0.87 and is normal. There were no evidence of attenuation artifact. IMPRESSION: Normal Lexiscan Myoview cardiac perfusion stress test. No evidence of ischemia or myocardial infarction by perfusion imaging. Normal left ventricular systolic function, ejection fraction 53%. No previous study available for comparison. Electronically signed by: BRIELLE DUVAL MD [facility] Vital Signs Date Time Vital Sign Value Performing Clinician Facility 03-17-2023 08:45-0400 Body height 154.94 cm Prem Goel Other [facility] Other 03-17-2023 08:45-0400 Body mass index (BMI) [Ratio] 30.98 kg/m2 Prem Goel Other [facility] Other 03-17-2023 08:45-0400 Body weight 74.39 kg Prem Goel Other [facility] Other 03-17-2023 08:45-0400 Diastolic blood pressure 76 mm[Hg] Prem Goel Other [facility] Other 03-17-2023 08:45-0400 Respiratory rate 16 /min Prem Goel Other [facility] Other 03-17-2023 08:45-0400 SaO2% (BldA) [Mass fraction] 96 % Prem Kuns Other [facility] Other 03-17-2023 08:45-0400 Systolic blood pressure 120 mm[Hg] Prem Kuns Other [facility] Other 11-12-2022 14:45-0400 Body height 154.94 cm Prem Kuns Other [facility] Other 11-12-2022 14:45-0400 Body mass index (BMI) [Ratio] 31.36 kg/m2 Prem Kuns Other [facility] Other 11-12-2022 14:45-0400 Body weight 75.3 kg Prem Kuns Other [facility] Other 11-12-2022 14:45-0400 Diastolic blood pressure 68 mm[Hg] Prem Kuns Other [facility] Other 11-12-2022 14:45-0400 Respiratory rate 16 /min Prem Kuns Other [facility] Other 11-12-2022 14:45-0400 SaO2% (BldA) [Mass fraction] 93 % Prem Kuns Other [facility] Other 11-12-2022 14:45-0400 Systolic blood pressure 124 mm[Hg] Prem Kuns Other [facility] Other 01-28-2022 11:15-0400 Body height 154.94 cm Prem Kuns Other [facility] Other 01-28-2022 11:15-0400 Body mass index (BMI) [Ratio] 30.98 kg/m2 Prem Kuns Other [facility] Other 01-28-2022 11:15-0400 Body weight 74.39 kg Prem Kuns Other [facility] Other 01-28-2022 11:15-0400 Diastolic blood pressure 82 mm[Hg] Prem Kuns Other [facility] Other 01-28-2022 11:15-0400 Respiratory rate 18 /min Prem Kuns Other [facility] Other 01-28-2022 11:15-0400 SaO2% (BldA) [Mass fraction] 95 % Prem Kuns Other [facility] Other 01-28-2022 11:15-0400 Systolic blood pressure 142 mm[Hg] Prem Kuns Other [facility] Other 08-15-2021 14:45-0500 Body height 154.94 cm Prem Kuns Other [facility] Other 08-15-2021 14:45-0500 Body mass index (BMI) [Ratio] 30.04 kg/m2 Prem Kuns Other [facility] Other 08-15-2021 14:45-0500 Body weight 72.12 kg Prem Kuns Other [facility] Other 08-15-2021 14:45-0500 Diastolic blood pressure 80 mm[Hg] Prem Kuns Other [facility] Other 08-15-2021 14:45-0500 Respiratory rate 16 /min Prem Kuns Other [facility] Other 08-15-2021 14:45-0500 SaO2% (BldA) [Mass fraction] 99 % Prem Kuns Other [facility] Other 08-15-2021 14:45-0500 Systolic blood pressure 142 mm[Hg] Prem Kuns Other [facility] Other 04-30-2021 11:45-0500 Body height 154.94 cm Prem Kuns Other [facility] Other 04-30-2021 11:45-0500 Body mass index (BMI) [Ratio] 29.74 kg/m2 Prem Kuns Other [facility] Other 04-30-2021 11:45-0500 Body weight 71.4 kg Prem Kuns Other [facility] Other 04-30-2021 11:45-0500 Diastolic blood pressure 87 mm[Hg] Prem Kuns Other [facility] Other 04-30-2021 11:45-0500 Respiratory rate 18 /min Prem Kuns Other [facility] Other 04-30-2021 11:45-0500 SaO2% (BldA) [Mass fraction] 93 % Prem Kuns Other [facility] Other 04-30-2021 11:45-0500 Systolic blood pressure 136 mm[Hg] Prem Kuns Other [facility] Other 02-28-2021 11:15-0400 Body height 154.94 cm Prem Kuns Other [facility] Other 02-28-2021 11:15-0400 Body mass index (BMI) [Ratio] 29.85 kg/m2 Prem Kuns Other [facility] Other 02-28-2021 11:15-0400 Body weight 71.67 kg Prem Kuns Other [facility] Other 02-28-2021 11:15-0400 Diastolic blood pressure 86 mm[Hg] Prem Kuns Other [facility] Other 02-28-2021 11:15-0400 Respiratory rate 16 /min Prem Kuns Other [facility] Other 02-28-2021 11:15-0400 SaO2% (BldA) [Mass fraction] 97 % Prem Kuns Other [facility] Other 02-28-2021 11:15-0400 Systolic blood pressure 134 mm[Hg] Prem Kuns Other [facility] Other Encounters Encounter Date Encounter Type Care Provider Facility Start: 05-27-2023 End: 05-27-2023 ambulatory Prem Kuns Other [facility] Other Start: 05-27-2023 Telephone encounter Prem Kuns [facility] Start: 03-17-2023 End: 03-17-2023 ambulatory Prem Kuns Other [facility] Other Start: 03-17-2023 Office outpatient visit 25 minutes Prem Kuns [facility] Start: 03-12-2023 End: 03-12-2023 ambulatory Prem Kuns Facility:[facility] Start: 03-12-2023 End: 03-12-2023 ambulatory DO Prem Kuns Work Phone: [facility] Work Phone: Start: 03-12-2023 End: 03-12-2023 Patient encounter procedure DO Prem Kuns Work Phone: [facility] Work Phone: Start: 01-30-2023 End: 01-30-2023 ambulatory Prem Kuns Other [facility] Other Start: 01-30-2023 Telephone encounter Prem Kuns [facility] Start: 11-12-2022 End: 11-12-2022 ambulatory Prem Kuns Other [facility] Other Start: 11-12-2022 Office outpatient visit 25 minutes Prem Kuns [facility] Start: 11-04-2022 End: 11-04-[address] PREM GOEL Facility:[facility] Start: 11-04-2022 Telephone encounter Prem Kuns [facility] Start: 10-30-2022 End: 10-30-2022 ambulatory Prem Kuns Facility:[facility] Start: 10-14-2022 End: 10-14-[address] PREM GOEL Facility:[facility] Start: 10-02-2022 End: 10-03-2022 ambulatory NARENDRANATH LAKSHMIPATHY . Facility:[facility] Start: 09-09-2022 End: 09-09-[address] PREM GOEL Facility:[facility] Start: 09-04-2022 End: 03-31-[address] PREM GOEL Facility:[facility] Start: 08-19-2022 End: 08-19-[address] BILL RAMOS Facility:[facility] Start: 07-22-2022 End: 07-23-[address] PREM GOEL Facility:[facility] Start: 05-08-2022 End: 05-09-2022 ambulatory AIXA JOSE . Facility:[facility] Start: 05-06-2022 Annual wellness visit Prem arevalo Other [facility] Other Start: 04-29-2022 End: 04-29-2022 ambulatory Prem Goel Facility:[facility] Start: 04-29-2022 End: 04-29-2022 ambulatory DO Prem Goel Work Phone: [facility] Work Phone: Start: 04-29-2022 End: 04-29-2022 Patient encounter procedure DO Prem Goel Work Phone: [facility] Start: 03-06-2022 End: 03-07-[address] KHOA RAMOS . Facility:[facility] Start: 02-27-2022 End: 02-27-2022 ambulatory Prem Goel Other [facility] Other Start: 02-27-2022 Telephone encounter Prem Goel [facility] Start: 02-18-2022 End: 02-18-[address] KHOA RAMOS . Facility:[facility] Start: 01-28-2022 End: 01-28-2022 ambulatory Prem Goel Other [facility] Other Start: 01-28-2022 Office outpatient visit 15 minutes Prem Goel [facility] Start: 01-21-2022 End: 01-22-[address] KHOA RAMOS . Facility:[facility] Start: 12-02-2021 End: 12-02-2021 ambulatory Prem Goel Other [facility] Other Start: 12-02-2021 Telephone encounter Prem Kuns [facility] Start: 11-28-2021 End: 11-28-2021 ambulatory Prem Kuns Other [facility] Other Start: 11-28-2021 Telephone encounter Prem Kuns [facility] Start: 10-02-2021 End: 10-02-2021 ambulatory Prem Kuns Other [facility] Other Start: 10-02-2021 Telephone encounter Prem Kuns [facility] Start: 09-10-2021 End: 09-10-2021 ambulatory Prem Kuns Other [facility] Other Start: 09-10-2021 Telephone encounter Prem Kuns [facility] Start: 08-15-2021 End: 08-15-2021 ambulatory Prem Kuns Other [facility] Other Start: 08-15-2021 Office outpatient visit 25 minutes Prem Kuns [facility] Start: 08-12-2021 End: 08-12-2021 ambulatory Prem Kuns Other [facility] Other Start: 08-12-2021 Telephone encounter Prem Kuns [facility] Start: 06-13-2021 End: 06-13-2021 ambulatory Prem Kuns Other [facility] Other Start: 06-13-2021 Telephone encounter Prem Kuns [facility] Start: 04-30-2021 End: 04-30-2021 ambulatory Prem Kuns Other [facility] Other Start: 04-30-2021 Office outpatient visit 25 minutes Prem Kuns [facility] Start: 02-28-2021 End: 02-28-2021 ambulatory Prem Goel Other [facility] Other Start: 02-28-2021 Patient encounter procedure Prem Raymon [facility] Start: 08-18-2019 Annual wellness visit Prem Ku irina Other [facility] Other Plan of Treatment Date Care Activity Detail Author Glucose measurement estimated from glycated hemoglobin [facility] Immunizations Immunization Date Immunization Notes Care Provider Fa cility 06-13-2021 COVID-19 Vaccine Pfizer - Documentation Purposes Only Prem Raymon Other [facility] Other 07-19-2020 COVID-19 Vaccine Pfizer - Documentation Purposes Only Prem Raymon Other [facility] Other 06-29-2020 COVID-19 Vaccine Pfizer - Documentation Purposes Only Premsaloni Goel Other [facility] Other NEGATED: Highlighted row has not occurred!05-06-2022 influenza, seasonal, injectable Patient Objection Prem Goel Other [facility] Other NEGATED: Highlighted row has not occurred!05-06-2022 Prevnar 20 Patient Objection Prem Goel Other [facility] Other NEGATED: Highlighted row has not occurred!02-17-2019 influenza, seasonal, injectable Patient Objection Prem Gole Other [facility] Other NEGATED: Highlighted row has not occurred!04-07-2017 influenza, seasonal, injectable Patient Objection Premsaloni Cabezass Other [facility] Other Payers Date Payer Category Payer Self-pay [id number] Private Health Insurance [id number] 1937 Unknown [id number] 1937 Unknown [id number] 1937 Unknown [id number] 1937 Unknown [id number] 1937 Unknown [id number] [id number] 1937 Unknown [id number] [id number] 1937 Unknown [id number] [id number] 1937 Unknown [id number] [id number] 1937 Unknown [id number] [id number] 1937 Unknown [id number] [id number] 1937 Unknown [id number] [id number] Medicare Medicare [id number] [facility] Health Claims [id number] Unknown [id number] [id number] Unknown [id number] [id number] Unknown [id number] [id number] Social History Date Type Detail Facility Unknown if ever smoked [facility] Other Sex Assigned At Sex Assigned At Bir th [facility] Other Start: 03-28-2020 End: 03-28-2020 Tobacco smoking status NHIS Never smoked tobacco (finding) [facility] Start: 1935 Sex Assigned At Female F [facility] Clinical Notes 12-21-2007 to 03-17-2023 Note Date & Type Note Facility 03-17-2023 Evaluation note Encounter Date Diagnosis Assessment Notes Mar, Hyperlipidemia (ICD-10 - E78.5) Blood work results reviewed and compared to previous findings five months ago. No signs of anemia or leukemia. Liver enzyems , kidney and thyroid functions, glucose is within normal limits.Total cholesterol is 228, HDL has improved from 51 to 66. At this time I am in agreement the patient continue to hold statin medication as joint pain has improved , continue Zetia along with dietary moderation and daily activity/exer cise.We will continue to monitor. Mar, Hyperglycemia (ICD-10 - R73.9) Hgb a1c is stable at 6.0 . Encouraged to watch diet and increase exercise regimen; we will continue to monitor. [facility] Other 08-25-2023 Evaluation note* Encounter Date Diagnosis Assessment Notes Treatment Notes Treatment Clinical Notes Jan, Hyperlipidemia (ICD-10 - E78.5) [facility] Other 06-07-2023 Evaluation note* Encounter Date Diagnosis Assessment Notes Treatment Notes Treatment Clinical Notes Nov, Bronchopneumonia (ICD-10 - J18.0) [facility] ER records reviewed from both 11/06 and 11/09. Patient and her both believe she is improving with the above regimen. I did note an expiratory wheeze and she does still report a bothersome cough. Encouraged patient to continue on the above and call with any persisting or worsening symptoms. Nov, Hyperlipidemia (ICD- 10 - E78.5) Blood work reviewed with the patient. Total cholesterol increased slightly from 196 to 218 and LDL increased from 109 and now 151. She did discontinue the atorvastatin 10mg due to muscle aches. Encouraged to monitor diet for now and if needed will discuss alternative treatment down the road. Patient and are agreeable. Blood work ordered to monitor. Nov, Hyperglycemia (ICD-1 0 - R73.9) Glucose is 92 and hgb a1c is 6.1% which is essentially unchanged from previous reading. Nov, Mediastinal lymphadenopathy (ICD-10 - R59.0) Noted on imaging from [facility]. I do believe this is likely due to her being ill. She has never smoked. Discussed these findings with the and the patient if symptoms persist we may have pulmonary evaluation but at this time patient appears to be improving [facility] Other 04-27-2023 NoteCONSULTATION CONSULTATION DATE: 10/02/2022 TO: Dr. Goel CHIEF COMPLAINT: Patient reports chief complaint of progressive pain in her buttock area bilaterally, worse on the right than left side. HISTORY: It is exacerbated with activities such standing, walking and performing transitioning maneuvers. She feels most comfortable in the semi-recumbent position. She denies any change in bowel and bladder habits or new sensorimotor changes in the lower extremities. EXAM: Notable for patient having no clinical radiculopathy or myelopathy involving the lower extremities. Patient did have severe pain with lumbar facet joint loading maneuvers occurring bilaterally from L4 through S1. RECOMMENDATIONS: I have recommended she proceed with a second diagnostic medial branch block, but limited to the L3, 4 and 5 levels bilaterally. I have gone over the details of the procedure with the patient. This will be her second such medial branch block for diagnostic purposes. The first one was performed on 07/22/2022 and she did report she was improved by 75-80% overall, after the procedure, which started in the immediate post procedural period and lasted for several hours. Currently, her neurogenic symptoms involving the lower extremities have improved. She reports her pain is improved by 90% after epidural injection. Her residual pain appears to be related to a mechanical source of spondylosis, and thus, the recommendation for her second diagnostic medial branch block. In the interim, I have asked her to continue with Zonegran 50 mg pills, two at h.s. As part of providing excellent, safe, comprehensive care, the following was completed at our patient's visit: 1. A medication reconciliation and review to ensure accurate knowledge of current/active medications, including asking our patients to inform us about any [id number] medications or herbal remedies/nutritional supplements/alternative remedies. 2. A review to specifically ensure our patients have had annual screening for: elevated body mass index (BMI, see intake chart for exact total), tobacco use, screening for depression, and screening for unhealthy alcohol use. When screening is concerning, patients are provided with education and the specific recommendation to discuss the concerning health issue and treatment options with their primary care provider.[id number] Note CONSULTATION CONSULTATION DATE: 09/04/2022 TO: Dr. Goel HISTORY: Patient returns today complaining of pain in her right leg area, rated 5-7/10 pain, sharp in character, increased with activities such as standing and walking and performing transitioning maneuvers. She feels most comfortable in the semi-recumbent position. She denies any change in bowel and bladder habits or new sensorimotor changes in her lower extremities. EXAM: Notable for patient having hypoesthesia along the right L4 dermatome with, weakness of the right quadriceps and anterior tibialis. Depressed right patellar reflex is noted. Negative straight leg raise. IMPRESSION: My impression is patient with chronic pain secondary to right L4 radiculopathy. Her last epidural injection was performed on 02/18/2022, where she reports she was at least 75% improved after the procedure for at least four months, with the recurrence of pain not quite back to her baseline. RECOMMENDATIONS: I have recommended we repeat the epidural injection at L4-5. I have placed her on Zonegran 25 mg pills, 1-2 at h.s. as tolerated.[id number] NoteCONSULTATION CONSULTATION DATE: 07/22/2022 CHIEF COMPLAINT: Right leg pain, low back pain. HISTORY OF PRESENT ILLNESS: This is a very pleasant, 86-year-old female, who is known to the Pain Clinic. The patient had an epidural steroid injection last year on 02/18/2022, which has afforded the patient significant improvement of her pain and functioning. The patient states the pain has been gradually returning. The patient also notes low back pain radiating into her hip and into the posterior aspect of her thigh. On an intermittent basis, the pain radiates into her right leg. The patient rates the pain as a 7/10, an achy sensation. Sitting mitigates the pain. Standing, walking, climbing stairs, activities aggravate the pain. The patient takes Aleve Arthritis and uses Aspercreme for her relief. She does not wish to take any narcotics or any other medications. The patient's PAST MEDICAL HISTORY / SURGICAL HISTORY / REVIEW OF SYSTEMS are noted on the chart, along with the MEDICATION LIST / ALLERGIES and the RADIOLOGICAL IMAGES. PHYSICAL EXAMINATION: Upon physical examination, this is a pleasant, cooperative female, who appears to be tired. VITAL SIGNS: Stable at 167/89 with a heart rate of 67. At a height of 5'1 , the patient weighs 170 pounds. HEAD: Atraumatic, normocephalic. Once again, the patient does appear to be fatigued. NECK: Crepitus is noted. HEART: Negative orthopnea. LUNGS: Negative dyspnea. ABDOMEN: Protuberant, non-distended. BACK: Spasming is noted along the lumbar paravertebrals, right hand side. Extension, compression, direct palpation along the posterior elements aggravate the patient's pain concordant with facet arthropathy, lumbar spondylosis. EXTREMITIES: No pedal edema is noted. MUSCULOSKELETAL: Intact in the lower extremities at 4+/5; however, the quality of the muscles are poor. NEUROLOGICALLY: Negative radicular symptomatology. In the past, the patient had hypoesthesia along the L5. PSYCHIATRICALLY: Affect is appropriate. IMPRESSION: Lumbar degenerative disc disease, lumbar spondylosis, vertebrogenic low back pain. PLAN: Exercises were given to the patient and reinforced. The patient does these on a regular basis. We will schedule the patient for a diagnostic lumbar medial branch block on the right hand side at the level of L2, L3 and L4, L5. Education was done. We have encouraged the patient to increase her nutritional intake with high protein supplements such as Boost or Ensure. The patient and her understand and would like to proceed,.[facility] 05-08-2022 NoteCONSULTATION CONSULTATION DATE: 05/08/2022 HISTORY OF PRESENT ILLNESS: This is a pleasant, 86-year-old female accompanied by her to the Pain Clinic for a three month follow up for her chronic lower back pain and radiculitis. She was last seen on 03/06/2022, which was a follow up for an LES which afforded her 95% relief. The patient is reporting no pain today at all. It was recommended to her by Dr. Ramos to obtain a quad cane which she did, and she uses it consistently. She finds that she is more stable and walks faster with the cane. She did have a fall approximately one week ago, which she believes she did not lift her leg high enough to catch a step off their porch. The fall did not result in any injuries. The patient does not report any new pain pattern or radiating pain today. Patient's REVIEW OF SYSTEMS / PAST MEDICAL HISTORY / ALLERGIES and IMAGES have been reviewed and they are noted on the chart. PHYSICAL EXAM: VITAL SIGNS: Blood pressure 160/85, heart rate is 60. Temperature is 97.5. She is 5'2 and weighs 76.3 kg. GENERAL APPEARANCE: Pleasant, appropriate, no acute distress. at chair side. FOCUSED EXAM - BACK: Range of motion is functional in lateral rotation and flexion/extension. Paravertebral muscles are non-spasmodic. Minimal spinal axial pain along L4-L5 bilaterally. Maycol's point is non-tender with negative FABERs and compression tests. MUSCULOSKELETAL: Slight motor weakness noted to left lower extremity to her quadriceps. Bilateral anterior tibialis slightly weak. Extensors are intact. Patient does use a quad cane and walks steadily with that. NEUROLOGICAL: Radicular sensory is intact. Negative polyneuropathy to lower extremities. Patellar reflexes are +1 bilaterally. Patient is cognitively intact. DIAGNOSIS: Lumbar radiculitis, lumbar spinal canal stenosis, lumbar degenerative disc disease. PLAN: Overall, the patient is doing quite well. I did recommend that the patient continue to use the cane inside the house as well as outside the house. I did recommend using the exercise bands within the house to do leg extensions to build quad strength. Patient will be followed up in three months' time unless otherwise indicated.[id number] NoteCONSULTATION CONSULTATION DATE: 03/06/2022 This is a very pleasant 86-year-old female who presents to the office with her , status post lumbar epidural steroid injections on 02/18/2022. The patient states she has received 90% relief for her lower back pain and radicular pain to her right leg. It was suggested at her last appointment on 01/21/2022 that she start using a cane. The patient did purchase a tripod cane and according to the , says his is walking much faster and with more stability. The patient concurs. Since that procedure, the patient feels she is walking more upright, can walk farther and is more competent. Occasionally she feels a slight twinge but she states it is not painful. She rates her pain as 0 today. She does not list any aggravating factors. The only medication is Tylenol arthritis as needed. REVIEW OF SYSTEMS, PAST MEDICAL HISTORY, ALLERGIES AND IMAGES: Have been reviewed and noted in the chart. PHYSICAL EXAM: VITAL SIGNS: Blood pressure 133/86, heart rate is 76, temperature is 97.1. She is 5'2 and weighs 76.3 kg. GENERAL APPEARANCE: Pleasant and appropriate; no acute distress. is sitting at side. FOCUSED EXAM: BACK: Range of motion is functional lateral rotation and in flexion/extension. Paravertebral muscles are taut but non-spasmodic. No reproduction of spinoaxial pain upon compression of the lumbar facets. Maycol's point is nontender with negative Chloe's and compression test. MUSCULOSKELETAL: Diffuse muscle atrophy noted bilateral lower extremities. Slight motor weakness along right anterior tibialis to the right. Extensors are intact. Ambulation with cane is steady and even. NEUROLOGICAL: Radicular sensory is intact today. Negative polyneuropathy. Bilateral +1 patellar reflexes. DIAGNOSIS: Lumbar radiculitis, lumbar spinal stenosis, lumbar degenerative disks. PLAN: Overall the patient is doing quite well today. presented with numerous questions which were answered. I did encourage her to continue using her cane and to be cognizant of her posture. She was complaint with a multivitamin regimen and was encouraged to continue that as well. She will be brought back to the clinic in three months for re-evaluation, pending possible repeat LES as needed. The patient and agree with plan of care and all questions were answered.[id number] Evaluation note* Encounter Date Diagnosis Assessment Notes Treatment Notes Treatment Clinical Notes Feb, Hyperlipidemia (ICD-10 - E78.5) [facility] Other 08-23-2022 Evaluation note* Encounter Date Diagnosis Assessment Notes Treatment Notes Treatment Clinical Notes Jan, Neural foraminal stenosis of lumbar spine (ICD-10 - M48.061) The patient encouraged to continue following with pain management , as above injections are pending insurance approval. The patient reports the majority of her is in the right lower extremity, states she does sleep well. I recommend the patient continue current Tylenol extra strengh regimen until she is able to start injections. I am in agreement she continue using her cane for ambulation and stay active. 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 Jan, Hyperlipidemia (ICD-10 - E78.5) Jan, Hyperglycemia (ICD-1 0 - R73.9) [facility] Other 08-16-2022 NoteCONSULTATION CONSULTATION DATE: 01/21/2022 CHIEF COMPLAINT: Low back pain, right leg pain. HISTORY OF PRESENT ILLNESS: This is a very pleasant, 86-year-old female, who is referred to us by Dr. Lim. The patient has had no recent injury; however, woke up one morning and had significant right leg pain. The patient has been seen by Dr. Escamilla, orthopedist, in the past and he has performed two injections into her right hip. She states it did not help. The patient describes the pain as a 7/10, a shooting pain down the right leg. Activities such as pushing, twisting, walking, housework, activities aggravate the patient's pain. The patient is accompanied by her who is very active in her care also, a very positive relationship. The patient currently takes Motrin on a regular basis, Alprazolam 20 mg, Tylenol Arthritis, atorvastatin 10 mg three times a week, Aspercreme. The patient has an MRI which was reviewed in office today, along with the x-ray, which shows significant deterioration along multiple disc levels. The patient also has stenosis along the L4-L5, L5-S1 region. Significant lumbar spondylosis is also noted on the MRI. The patient has attended physical therapy in the past without success. The patient's PAST MEDICAL HISTORY / SURGICAL HISTORY / REVIEW OF SYSTEMS are noted on the chart, along with the MEDICATION LIST, ALLERGIES and RADIOLOGICAL IMAGES. PHYSICAL EXAMINATION: GENERAL: Upon physical examination, this is a very pleasant, 86-year-old female, who is very comfortable. VITAL SIGNS: 146/81, with a heart rate of 68. At a height of 5'1 , the patient weighs 73 kg. FOCUSED EVALUATION - HEAD: Atraumatic, normocephalic. NECK: Crepitus is noted along the cervicothoracic region. HEART: No orthopnea is noted. LUNGS: Normal expansion. No labored breathing. ABDOMEN: Soft. BACK: Significant loss of axial height is noted along the lumbar spine. Scoliotic curve is noted. Significant paravertebral spasming is present bilaterally. EXTREMITIES: Disuse atrophy and sarcopenia is noted of the left lower extremity compared to the right. Generalized deconditioning of muscle tone is present in the lower extremities bilaterally. MUSCULOSKELETAL: Intact however the patient has slight tremulousness when ambulating. The patient does not use a cane at home; has been advised to do so. The patient's extensor hallucis, extensor digitorum are decreased in toe stance. The patient is flat footed in her ambulation; however, anterior tibia is maintained. NEUROLOGICALLY: Hypoesthesia is present along the L5-S1 distribution on the right hand side compared to the left hand side. PSYCHIATRICALLY: Affect is appropriate. IMPRESSION: Current working diagnosis is significant degenerative disc disease, lumbar spasm, lumbar spondylosis, lumbar radiculitis, lumbar spinal canal stenosis, sarcopenia. PLAN: We will schedule the patient for a lumbar epidural steroid injection under fluoroscopy, at which time the patient will also receive testosterone cypionate 75 mg IM. The use of a cane has been advised to the patient along with applying heat rub to the low back and initiating a multivitamin regimen. The patient and her understand. CC: Dr. Raphael Escamilla D.O.[facility] [id number] NotePROCEDURE: [employer] HDXT 1.5 Sagittal T1, T2, STIR and axial T1 and T2 contiguous and cone down images through the lumbar spine were performed without contrast administration. HISTORY: Right leg pain x several months. No accompanying plain films FINDINGS; Mid lumbar levoscoliosis, apex leftward L3, 21 degrees. Chronic appearing end plate signal intensity changes throughout the entire lumbar spine, multiple non-acute Schmorl's node (superior end plates of L3, L4) no bone marrow edema or fracture. Normal vertebral body alignment. Chronic L5 spondylolysis. Normal conus medullaris and filum terminale. No renal cortical volume. Moderate to large peripelvic cyst formation. T11-T12 and L1-2: Moderate disc space loss. Small broad based disc osteophyte complexes. Bilateral facet arthropathy. No significant spinal canal ostenosis. Mild bilateral T12-L1 neuroforaminal stenosis. L2-3: Moderate to severe disc space loss within the concavity of the curvature. Left paracentral 5 x 8 mm disc herniation with extension toward the left lateral recess. Bilateral facet arthropathy. No significant spinal canal, lateral recess or neuroforaminal stenosis. L3-4: Severe disc space loss. No disc herniation, spinal canal or neuroforaminal stenosis. Bilateral facet arthropathy. L4-5: Moderate to severe right asymmetric disc space loss. Minimal central disc bulging. Bilateral facet arthropathy. Mild bilateral mid and exit neuroforaminal stenosis. L5-S1: Normal disc volume, mild central disc bulging. Bilateral facet arthropathy. Chronic spondylolysis. No significant spinal canal stenosis. Moderate left mid and exit neuroforaminal stenosis. IMPRESSION: 1. Diffuse facet arthropathy, moderate degrees of neuroforaminal stenosis bilateral T12-L1. 2. Chronic L5 spondylolysis, mild left mid and exit neuroforaminal stenosis. 3. Bilateral peripelvic cyst formation. Report reported and signed by Ralph Figueroa on 10/25/2021 [id number] [id number] Evaluation note* Encounter Date Diagnosis Assessment Notes Treatment Notes Treatment Clinical Notes Aug, Primary osteoarthritis of right hip (ICD-10 - M16.11) The patient reports pain in her right hip, mid-buttock, radiating down her right lateral leg. The pain at times will be severe enough that she cannot stand for long periods. She has slight pain with leg raises. X-rays from 2016 revealed osteoarthritis in her right hip. I did suggest updating imaging as I do feel the pain could be coming from her back. She is in agreement. X-rays ordered. Oral steroids recommended as well, she is in agreement. Medication e-scribed. If needed, we will attempt to order an MRI. [facility] Other 01-06-2022 Evaluation note* Encounter Date Diagnosis Assessment Notes Treatment Notes Treatment Clinical Notes Jun, Hyperlipidemia (ICD-10 - E78.5) [facility] Other 11-23-2021 Evaluation note* Encounter Date Diagnosis Assessment Notes Treatment Notes Treatment Clinical Notes Apr, Hyperlipidemia (ICD-10 - E78.5) Upon review of blood work resutls I recommend the patient take the above medication three times a week along with diet moderation and encourge her to stay active. We will continue to monitor, blood work ordered to be re-evaluate in six months. Apr, Hyperglycemia (ICD-1 0 - R73.9) Glucose was slightly elevated at 104 upon review of blood work results. In house hgb a1c is normal at 5.8 . Apr, Weight loss (ICD-10 - R63.4) Discussed at length with the patient her slow weight loss. Still admits to a fairly good appetite. Discussed with her about doing a further work-up she requested that we wait for 6 months if weight loss persists then will necessitate doing a further work-up i.e. CAT scan of her abdomen. [facility] Other 09-23-2021 Evaluation note* Encounter Date Diagnosis Assessment Notes Treatment Notes Treatment Clinical Notes Feb, Medicare annual wellness visit, initial (ICD-10 - Z00.00) Personalized health advice was given to the beneficiary including a written plan for screenings discussed and provided. Advanced care planning reviewed and/or information given as requested. Additional counseling was provided here today in regards to The above visit was performed by Rosa M Watson LPN, under direct supervision of Dr. Prem Goel. Document reviewed and amended by provider signed below. Feb, Hyperlipidemia (ICD-10 - E78.5) Review of blood work results with the patient . Liver enzymes and thyroid functions are within normal limtis .Cholesterol levels have increased compared to previous findings . I suggest the patient add an addtional medication to her current regimen to take three times times a week along with Atorvastatin.The patient voices understanding, we will continue to monitor, a blood work order provided to repeat in six weeks. 23 Feb, 2021 Lymphocytosis (ICD-1 0 - D72.820) We will continue to monitor, a blood work order was provided. [facility] Other 07-15-2008 History general Narrative - Reported* Type Description Date Medical History Colonoscopy 12-21-07 Medical History Stress Test 01-18-[address] Scan Abdomen and Pelvis 06-07 Medical History Mammogram 2-11 Medical History Pap 1-10 Medical History 02[place] [facility] [place] 10/13/13-mammogram at [facility] Medical History 12/2015 mammogram Medical History 12/2016 Mammogram Medical History 07/2019 Mammogram Medical History Cardiolite 04/09/20 Surgical History wisdom teeth Hospitalization History child [facility] Other 07-15-2008 History general Narrative - Reported* Type Description Date Medical History Colonoscopy 12-21-07 Medical History Stress Test 01-18-[address] Scan Abdomen and Pelvis 06-07 Medical History Mammogram 2-11 Medical History Pap 1-10 Medical History 02/2013 [facility] [place] History 10/13/13-mammogram at [facility] Medical History 12/2015 mammogram Medical History 12/2016 Mammogram Medical History 07/2019 Mammogram Medical History Cardiolite 04/09/20 Medical History hearing aids Surgical History wisdom teeth Hospitalization History child [facility] Other Evaluation noteNo [employer] Other evalugdkiu noteNo assessment information available [facility] Work Phone: Summary Purpose Family History No Family History Records FoundNo Family History Records FoundNo Family History Records FoundNo Family History Records Found Advance Directives Advance Directive Response Recorded Date/ Time Advance Directives No April 15, 2017 7:45pm Advance Directive Response Recorded Date/ Time Advance Directives No April 15, 2017 8:45pm Chief Complaint and Reason for Visit Chief Complaint See order Chief Complaint E78.5 R73.9 Additional Source Comments INFORMATION SOURCE (unrecogn ized section and content) DATE CREATED AUTHOR [facility] DATE CREATED AUTHOR AUTHOR'S ORGANIZ ATION 10/27/2021 [facility] DATE CREATED AUTHOR AUTHOR'S ORGANIZ ATION 10/17/2022 [facility] DATE CREATED AUTHOR AUTHOR'S ORGANIZ ATION 03/15/2023 [facility] REASON FOR VISIT (unrecogniz ed section and content) refillMEDICARE WELLNESS SUBR efillsreview labs- hyperlipidemia managementRefillship/leg painhip and leg painClinicalRefill3 month Follow up right hp /legRefillsClinicalER FOLLOW UP ELAINA BRONCHITISRefills4 month Follow upRefills Care Teams (unrecognized sec tion and content) Team Status: Active Member Role Status Dates Prem Goel DO Primary Care Provider Active Team Status: Inactive Member Role Status Dates Prem Goel DO Primary Care Provider, Attending Provi alexey Active Goals (unrecognized section and content) Goals may be documented in a n alternate section FOR RECORDS PERTAINING TO PATIENTS WHO ARE OR HAVE BEEN ENROLLED IN A CHEMICAL DEPENDENCY/SUBSTANCEABUSE PROGRAM, SOME INFORMATION MAY BE OMITTED. This clinical summary was aggregated from multiple sources. Caution should be exercised in using it in the provision of clinical care. This summary normalizes information from multiple sources, and as a consequence, information in this document may materially change the coding, format and clinical context of patient data. In addition, data may be omitted in some cases. CLINICAL DECISIONS SHOULD BE BASED ON THE PRIMARY CLINICAL RECORDS. [employer] provides no warranty or guarantee of the accuracy or completeness of information in this document.
--- NOTE | 2023-05-28 15:13 | P.CN_ITS ---
Consult Note: HPI Data of Consult Patient: known to practice within the last 3 years Requesting Physician: Mercy Pak NP Primary Care Provider: PREM GOEL Consult Narrative Reason for consult: f/u Narrative: Mary King is a pleasant 87 year old female who presents for evaluation of chronic right buttock and leg pain. Patient reporting pain and shoots down right leg intermittently. Pain today 8/10 worse with standing walking activity rolling over, improved with rest. Mild relief from aspirin, moderate relief from tylenol arthritis. Patient reports PT was no benefit. She did benefit from diclofenac 50mg BID PRN. cc:: CC: Mercy Pak NP Review of Systems ROS Status of ROS 10 or more systems reviewed and unremark able except as noted in history and below Musculoskeletal Reports: back pain PFSH PFSH Medical History Low back pain ?M54.50 - Low back pain, unspecified (ICD-10) Hearing deficit ?H91.90 - Unspecified hearing loss, unspecified ear (ICD-10) High cholesterol ?E78.00 - Pure hypercholesterolemia, unspecified (ICD-10) Surgical History H/O breast biopsy ?Z98.890 - Other specified postprocedural states (ICD-10) Social History Smoking status: Never smoker Meds Home Medications and Allergies Home Medications Medication Instructions Recorded Confirmed Type aspirin 81 mg capsule 81 mg PO QDAY 11/06/22 12/16/22 History ezetimibe 10 mg tablet 10 mg PO QAM 11/06/22 12/16/22 History omeprazole 20 mg capsule,delayed 20 mg PO QDAY 11/06/22 12/16/22 History release albuterol sulfate 90 mcg/actuation 2 inh inhalation Q4H PRN shortness 11/09/22 12/16/22 Rx aerosol inhaler of breath or wheezing #8.5 grams acetaminophen 650 mg 650 mg PO .QD 11/14/22 12/16/22 History tablet,extended release (Arthritis Pain Relief (acetaminophen) ER) multivitamin 1 tab PO DAILY 11/14/22 12/16/22 History zonisamide 25 mg capsule 50 mg PO .HS 11/14/22 12/16/22 History Allergies Allergy/AdvReac Type Severity Reaction Status Date / Time No Known Drug Allergies Allergy Verified 12/16/22 10:12 Exam Constitutional Documenting provider has reviewed patient's vital signs: yes Common normals: no apparent distress, oriented x3, no limitations, healthy appearing, alert and well nourished General appearance: cooperative Nutritional appearance: overweight HENMT Common normals: normocephalic, hearing grossly normal bilaterally and moist oral mucous membranes Head and scalp: normocephalic Eye Common normals: PERRL Pupil: PERRL Neck & C-Spine Common normals: full ROM General: normal visual inspection Chest Common normals: inspection of chest normal Respiratory Common normals: normal respiratory effort, no retractions and no use of accessory muscles Back & Pelvis Thoracic spine/upper back: normal to inspection and thoracic ROM normal Lumbar spine/lower back: ROM limited, pain with ROM and straight leg raise negative bilaterally Sacroiliac joints: SI joints normal Other: tenderness over right gluteus medius, pain with deep palpation Extremity Common normals: normal to inspection and full ROM Neuro Common normals: oriented x3, CN's II-XII intact bilaterally, moves all extremities, no focal motor deficits, no sensory deficits noted and deep tendon reflexes 2+ bilaterally Sensorium/orientation: alert Gait (neuro): normal gait Motor exam: strength 5/5 throughout and no movement abnormalities noted Psych Common normals: mental status grossly normal, thought process normal, cooperative, affect normal, speech normal and activity/motor behavior normal Speech: normal speech Thought process: normal thought process Assessment and Plan Assessment and Plan (1) Piriformis syndrome of right side: (2) Chronic pain syndrome: (3) Lumbar spondylosis: (4) Muscle spasm: Assessment and Plan: right gluteal medius TPI injection performed by myself witnessed by Dr Garza risks vs benefits discussed, informed consent obtained area identified and cleansed with alcohol. TPI with 2% lidocaine, 0.25% bupivacaine, and whiff of triamcinolone. patient reporting pain from 8/10 improved to 2/10 in right gluteal medius initially after trigger point injection Plan continue diclofenac 50mg BID PRN continue tylenol arthritis PRN continue HEP as tolerated f/u 3 months, sooner if needed
== END 2023-05-28 14:17 | disposition home or self-care (01) ==
PROVIDERS: PCP Family Medicine; Visit Provider Nurse Practitioner
DX: G57.01 Lesion of sciatic nerve, right lower limb (principal); G89.4 Chronic pain syndrome; M47.816 Spondylosis without myelopathy or radiculopathy, lumbar region; M62.838 Other muscle spasm
CPT/HCPCS: 20552

== ENCOUNTER 2023-08-07 13:00 | Observation (INO) | payer MEDICARE, SELFPAY ==
[2023-08-07] VITALS (78 sets, daily range): BP systolic 101–176; BP diastolic 55–119; PULSE 74–96; RESP 12–27; TEMP 36.3–36.6; O2SAT 91–99; BMI 31.2; BMI 31.7
--- OUTSIDE RECORDS SUMMARY | 2023-08-07 13:26 | XMS_ITS | CCD ---
Author Name Unknown Address [address] [place] [address] Organization [facility] Care Team Providers Care Auto Radiator Specialist Name Role Phone Prem Goel Unavailable DO Prem Goel Primary Care Provider DO Prem Goel Attending Provider [phone] LAKSHMIPATHY ., NARENDRANATH Admitting Eda vailable RAYMON, [...] vailable Kuns, DO Prem Primary Care Provider Kuns, DO Prem Attending Provider [phone] Kuns, Prem Admitting Unavailable Kuns, Prem Primary Care Unavailable Kuns, Prem Attending Unavailable Kuns, Prem Primary Care Unavailable Kuns, Prem Attending Unavailable Kuns, Prem Admitting Unavailable Kuns, Prem Primary Care Unavailable Kuns, Prem Attending Unavailable Kuns, Prem Admitting Unavailable Medications Current Medications Medication Drug [...] nee ded Orally every 8 hrs Active [id number] 60 actuat albuterol 0.09 mg/actuat metered dose [...] kris 03-12-2023 Glucose [Mass/Vol] 126 mg/dL Normal [facility] Comment on above: Order Comment: Reaso n for Exam Hyperlipidemia Result Comment: PERF ORMED BY: [place] [address] PATHOLOGIST LIQUOR INSPECTOR BEV TALBERT M.D. Performed By: #### A 1C WT eA, LIPID, TSH3, CBC, CMP #### [address] HbA1c (Bld) [Mass fraction] 6.0 % High 4.3-5.6 [facility] Comment on above: Order Comment: Reaso n for Exam Hyperlipidemia Result Comment: Incr eased risk for diabetes: 5.7 - 6.4 diabetes: >6.4 glycemic control for adults with diabetes: <7.0 Performed By: #### A 1C WTH eA, LIPID, TSH3, CBC, CMP #### [facility] [address] Alanine aminotransferase [En zymatic activity/volume] in Serum or PlasmaOrdered By: Prem Goel on 03-12-2023 ALT [Catalytic activity/Vol] 11 U/L 7-52 [facility] Albumin [Mass/volume] in Ser um or Plasma by Bromocresol green (BCG) dye binding methoOrdered By: Prem Goel on 03-12-2023 Albumin BCG dye [Mass/Vol] 3.9 g/dL 3.5-5.7 [facility] Alkaline phosphatase [Enzyma tic activity/volume] in Serum or PlasmaOrdered By: Prem Goel on 03-12-2023 ALP [Catalytic activity/Vol] 89 U/L 34-104 [facility] Aspartate aminotransferase [ Enzymatic activity/volume] in Serum or PlasmaOrdered By: Prem Goel on 03-12-2023 AST [Catalytic activity/Vol] 15 U/L 13-39 [facility] Basophils Auto (Bld) [#/Vol] Ordered By: Prem Goel on 03-12-2023 Basophils (Bld) [#/Vol] 0.0 10*3/uL 0.0-0.2 [facility] Basophils/100 WBC Auto (Bld) Ordered By: Prem Goel on 03-12-2023 Basophils/100 WBC (Bld) 0.7 % . [facility] Bilirubin.total [Mass/volume ] in Serum or PlasmaOrdered By: Prem Goel on 03-12-2023 Bilirubin [Mass/Vol] 0.6 mg/dL 0.3-1.0 [facility] Calcium [Mass/volume] in Ser um or PlasmaOrdered By: Prem Goel on 03-12-2023 Calcium [Mass/Vol] 9.4 mg/dL 8.6-10.3 [facility] Carbon dioxide, total [Moles /volume] in Serum or PlasmaOrdered By: Prem Goel on 03-12-2023 CO2 [Moles/Vol] 28.2 mmol/L 21.0-31.0 [facility] Chloride [Moles/volume] in S dede or PlasmaOrdered By: Prem Goel on 03-12-2023 Chloride [Moles/Vol] 107 mmol/L 98-107 [facility] Cholesterol [Mass/volume] in Serum or PlasmaOrdered By: Prem Goel on 03-12-2023 Cholesterol [Mass/Vol] 228 mg/dL 140-200 [facility] Comment on above: Chol less than 200 m g/dl low riskChol 201-239 mg/dl borderline riskChol 240 mg/dl and greater high risk Cholesterol in LDL Calc [Mas s/Vol]Ordered By: Prem Goel on 03-12-2023 Cholesterol in LDL [Mass/Vol] 146 mg/dL 0-100 [facility] Comment on above: LDL ATP III CLASSIFI CATIONLDL less than 100 mg/dL OptimalLDL 100-129 mg/dL Near or above optimalLDL 130-159 mg/dL Borderline highLDL 160-189 mg/dL HighLDL greater than 189 mg/dL Very high Cholesterol in VLDL Calc [Ma ss/Vol]Ordered By: Prem Goel on 03-12-2023 Cholesterol in VLDL [Mass/Vol] 15 mg/dL [facility] Complete Blood Count Auto Di ffon 03-12-2023 Basophils (Bld) [#/Vol] 0.0 10*3/uL Normal 0.0-0.2 [facility] Comment on above: Order Comment: Reaso n for Exam Hyperlipidemia Result Comment: PERF ORMED BY: [place] [address] PATHOLOGIST LIQUOR INSPECTOR BEV TALBERT M.D. Performed By: #### C BC #### [facility] [address] [place] [address] [place] Basophils/100 WBC (Bld) 0.7 % Normal . [facility] Comment on above: Order Comment: Reaso n for Exam Hyperlipidemia Performed By: #### C BC #### [facility] [address] [place] [address] [place] Eosinophils (Bld) [#/Vol] 0.1 10*3/uL Normal 0.0-0.45 [facility] Comment on above: Order Comment: Reaso n for Exam Hyperlipidemia Performed By: #### C BC #### [place] [address] [place] Eosinophils/100 WBC (Bld) 2.3 % Normal . [facility] Comment on above: Order Comment: Reaso n for Exam Hyperlipidemia Performed By: #### C BC #### [address] Erythrocyte distribution width (RBC) [Ratio] 12.9 % Normal 11.9-15.3 [facility] Comment on above: Order Comment: Reaso n for Exam Hyperlipidemia Performed By: #### C BC #### [address] Hematocrit (Bld) [Volume fraction] 45.2 % Normal 34.0-46.4 [facility] Comment on above: Order Comment: Reaso n for Exam Hyperlipidemia Performed By: #### C BC #### [address] Hemoglobin (Bld) [Mass/Vol] 14.9 g/dL Normal 11.8-15.4 [facility] Comment on above: Order Comment: Reaso n for Exam Hyperlipidemia Performed By: #### C BC #### [address] Lymphocytes (Bld) [#/Vol] 2.6 10*3/uL Normal 1.00-4.8 [facility] Comment on above: Order Comment: Reaso n for Exam Hyperlipidemia Performed By: #### C BC #### [address] Lymphocytes/100 WBC (Bld) 42.3 % Normal . [facility] Comment on above: Order Comment: Reaso n for Exam Hyperlipidemia Performed By: #### C BC #### [address] MCH (RBC) [Entitic mass] 29.8 pg Normal 24.7-34.3 [facility] Comment on above: Order Comment: Reaso n for Exam Hyperlipidemia Performed By: #### C BC #### [address] [place] [address] [place] MCV (RBC) [Entitic vol] 90.5 fL Normal 80-100 [facility] Comment on above: Order Comment: Reaso n for Exam Hyperlipidemia Performed By: #### C BC #### [facility] [address] Mean Corpuscular HGB Conc 33.0 g/dL Normal 32.0-35.0 [facility] Comment on above: Order Comment: Reaso n for Exam Hyperlipidemia Performed By: #### C BC #### [facility] [address] Monocytes (Bld) [#/Vol] 0.6 10*3/uL Normal 0.0-0.8 [facility] Comment on above: Order Comment: Reaso n for Exam Hyperlipidemia Performed By: #### C BC #### [address] Monocytes/100 WBC (Bld) 9.1 % Normal . [facility] Comment on above: Order Comment: Reaso n for Exam Hyperlipidemia Performed By: #### C BC #### [place] [address] [place] Neutrophils (Bld) [#/Vol] 2.8 10*3/uL Normal 1.8-7.7 [facility] Comment on above: Order Comment: Reaso n for Exam Hyperlipidemia Performed By: #### C BC #### [place] [address] [place] Neutrophils/100 WBC (Bld) 45.6 % Normal . [facility] Comment on above: Order Comment: Reaso n for Exam Hyperlipidemia Performed By: #### C BC #### [facility] [address] [place] [address] [place] NRBC% 0.1 /100{WBC} Normal 0-0.5 [facility] Comment on above: Order Comment: Reaso n for Exam Hyperlipidemia Performed By: #### C BC #### [address] Platelet mean volume (Bld) [Entitic vol] 10.2 fL Normal 6.3-10.7 [facility] Comment on above: Order Comment: Reaso n for Exam Hyperlipidemia Performed By: #### C BC #### [facility] [address] Platelets (Bld) [#/Vol] 201 10*3/uL Normal 150-450 [facility] Comment on above: Order Comment: Reaso n for Exam Hyperlipidemia Performed By: #### C BC #### [facility] [address] RBC (Bld) [#/Vol] 4.99 10*6/uL Normal 3.60-5.00 [facility] Comment on above: Order Comment: Reaso n for Exam Hyperlipidemia Performed By: #### C BC #### [address] WBC (Bld) [#/Vol] 6.1 10*3/uL Normal 3.8-11.6 [facility] Comment on above: Order Comment: Reaso n for Exam Hyperlipidemia Performed By: #### C BC #### [address] Comprehensive Metabolic Pane [place] 03-12-2023 Albumin [Mass/Vol] 3.9 g/dL Normal 3.5-5.7 [facility] Comment on above: Order Comment: Reaso n for Exam Hyperlipidemia Performed By: #### A 1C WTH eA, LIPID, TSH3, CBC, CMP #### [facility] [address] Albumin/Globulin [Mass ratio] 1.8 {ratio} Normal [facility] Comment on above: Order Comment: Reaso n for Exam Hyperlipidemia Performed By: #### A 1C WTH eA, LIPID, TSH3, CBC, CMP #### [facility] [address] ALP [Catalytic activity/Vol] 89 U/L Normal 34-104 [facility] Comment on above: Order Comment: Reaso n for Exam Hyperlipidemia Performed By: #### A 1C WTH eA, LIPID, TSH3, CBC, CMP #### [facility] [address] [place] [address] [place] ALT [Catalytic activity/Vol] 11 U/L Normal 7-52 [facility] Comment on above: Order Comment: Reaso n for Exam Hyperlipidemia Performed By: #### A 1C WTH eA, LIPID, TSH3, CBC, CMP #### [facility] [address] Anion gap [Moles/Vol] 10.1 mmol/L Normal 6.0-15.0 [facility] Comment on above: Order Comment: Reaso n for Exam Hyperlipidemia Performed By: #### A 1C WTH eA, LIPID, TSH3, CBC, CMP #### [facility] [address] AST [Catalytic activity/Vol] 15 U/L Normal 13-39 [facility] Comment on above: Order Comment: Reaso n for Exam Hyperlipidemia Performed By: #### A 1C WTH eA, LIPID, TSH3, CBC, CMP #### [facility] [address] [place] [address] [place] Bilirubin [Mass/Vol] 0.6 mg/dL Normal 0.3-1.0 [facility] Comment on above: Order Comment: Reaso n for Exam Hyperlipidemia Performed By: #### A 1C WTH eA, LIPID, TSH3, CBC, CMP #### [facility] [address] [place] [address] [place] Calcium [Mass/Vol] 9.4 mg/dL Normal 8.6-10.3 [facility] Comment on above: Order Comment: Reaso n for Exam Hyperlipidemia Performed By: #### A 1C WTH eA, LIPID, TSH3, CBC, CMP #### [facility] [address] [place] [address] [place] Chloride [Moles/Vol] 107 mmol/L Normal 98-107 [facility] Comment on above: Order Comment: Reaso n for Exam Hyperlipidemia Performed By: #### A 1C WTH eA, LIPID, TSH3, CBC, CMP #### [facility] [address] [place] [address] [place] CO2 [Moles/Vol] 28.2 mmol/L Normal 21.0-31.0 [facility] Comment on above: Order Comment: Reaso n for Exam Hyperlipidemia Performed By: #### A 1C WTH eA, LIPID, TSH3, CBC, CMP #### [facility] [address] Creatinine [Mass/Vol] 0.77 mg/dL Normal 0.60-1.20 [facility] Comment on above: Order Comment: Reaso n for Exam Hyperlipidemia Performed By: #### A 1C WTH eA, LIPID, TSH3, CBC, CMP #### [facility] [address] GFR/1.73 sq M.predicted MDRD (S/P/Bld) [Vol rate/Area] mL/min/{1.73_m2} Normal [facility] Comment on above: Order Comment: Reaso n for Exam Hyperlipidemia Performed By: #### A 1C WTH eA, LIPID, TSH3, CBC, CMP #### [facility] [address] Globulin (S) [Mass/Vol] 2.2 g/dL Normal [facility] Comment on above: Order Comment: Reaso n for Exam Hyperlipidemia Performed By: #### A 1C WTH eA, LIPID, TSH3, CBC, CMP #### [facility] [address] Glucose [Mass/Vol] 96 mg/dL Normal 70-100 [facility] Comment on above: Order Comment: Reaso n for Exam Hyperlipidemia Result Comment: [place] Glucose Reference Range is dependent on time and content of last meal. Glucose of more than 200 mg/dL in a nonstressed, ambulatory subject supports the diagnosis of Diabetes Mellitus. ADA recommended reference range Performed By: #### A 1C WTH eA, LIPID, TSH3, CBC, CMP #### [facility] [address] Potassium [Moles/Vol] 4.3 mmol/L Normal 3.5-5.1 [facility] Comment on above: Order Comment: Reaso n for Exam Hyperlipidemia Performed By: #### A 1C WTH eA, LIPID, TSH3, CBC, CMP #### [facility] [address] [place] [address] [place] Protein [Mass/Vol] 6.1 g/dL Low 6.4-8.9 [facility] Comment on above: Order Comment: Reaso n for Exam Hyperlipidemia Performed By: #### A 1C WTH eA, LIPID, TSH3, CBC, CMP #### [facility] [address] Sodium [Moles/Vol] 141 mmol/L Normal 136-145 [facility] Comment on above: Order Comment: Reaso n for Exam Hyperlipidemia Performed By: #### A 1C WT eA, LIPID, TSH3, CBC, CMP #### [facility] [address] Urea nitrogen [Mass/Vol] 18 mg/dL Normal 7-25 [facility] Comment on above: Order Comment: Reaso n for Exam Hyperlipidemia Performed By: #### A 1C WT eA, LIPID, TSH3, CBC, CMP #### [facility] [address] Creatinine [Mass/volume] in Serum or PlasmaOrdered By: Prem Goel on 03-12-2023 Creatinine [Mass/Vol] 0.77 mg/dL 0.60-1.20 [facility] Eosinophils Auto (Bld) [#/Vo l]Ordered By: Prem Goel on 03-12-2023 Eosinophils (Bld) [#/Vol] 0.1 10*3/uL 0.0-0.45 [facility] Eosinophils/100 WBC Auto (Bl d)Ordered By: Prem Goel on 03-12-2023 Eosinophils/100 WBC (Bld) 2.3 % . [facility] Erythrocyte distribution wid th Auto (RBC) [Ratio]Ordered By: Prem Goel on 03-12-2023 Erythrocyte distribution width (RBC) [Ratio] 12.9 % 11.9-15.3 [facility] Globulin Calc (S) [Mass/Vol] Ordered By: Prem Goel on 03-12-2023 Globulin (S) [Mass/Vol] 2.2 g/dL [facility] Glucose [Mass/volume] in Ser um or PlasmaOrdered By: Prem Goel on 03-12-2023 Glucose [Mass/Vol] 96 mg/dL 70-100 [facility] Comment on above: ADA recommended refe rence rangeRandom Glucose Reference Range is dependent on time and content of last meal. Glucose of more than 200 mg/dL in a nonstressed, ambulatory subject supports the diagnosis of Diabetes Mellitus. Hematocrit Auto (Bld) [Volum e fraction]Ordered By: Prem Goel on 03-12-2023 Hematocrit (Bld) [Volume fraction] 45.2 % 34.0-46.4 [facility] Hemoglobin [Mass/volume] in BloodOrdered By: Prem Goel on 03-12-2023 Hemoglobin (Bld) [Mass/Vol] 14.9 g/dL 11.8-15.4 [facility] Leukocytes [#/volume] correc guillermina for nucleated erythrocytes in Blood by Automated counOrdered By: Prem Goel on 03-12-2023 WBC corrected for nucl RBC Auto (Bld) [#/Vol] 6.1 10*3/uL 3.8-11.6 [facility] Lipid Panelon 03-12-2023 Cholesterol [Mass/Vol] 228 mg/dL High 140-200 [facility] Comment on above: Order Comment: Reaso n for Exam Hyperlipidemia Result Comment: Chol less than 200 mg/dl low risk Chol 201-239 mg/dl borderline risk Chol 240 mg/dl and greater high risk Performed By: #### A 1C WTH eA, LIPID, TSH3, CBC, CMP #### [facility] [address] [place] [address] [place] Cholesterol in HDL [Mass/Vol] 66 mg/dL Normal 23-92 [facility] Comment on above: Order Comment: Reaso n for Exam Hyperlipidemia Result Comment: HDL CHOL ATP-III CLASSIFICATION Cardiovascular Risk HDL > or equal to 60 mg/dL LOW HDL < 40 mg/dL HIGH Performed By: #### A 1C WTH eA, LIPID, TSH3, CBC, CMP #### [facility] [address] [place] [address] [place] Cholesterol.total/Araceli sterol in HDL [Mass ratio] 3.5 {ratio} Normal <5.0 [facility] Comment on above: Order Comment: Reaso n for Exam Hyperlipidemia Performed By: #### A 1C WT eA, LIPID, TSH3, CBC, CMP #### [facility] [address] LDL Cholesterol,Calculated 146 mg/dL High 0-100 [facility] Comment on above: Order Comment: Reaso n for Exam Hyperlipidemia Result Comment: LDL ATP III CLASSIFICATION LDL less than 100 mg/dL Optimal LDL 100-129 mg/dL Near or above optimal LDL 130-159 mg/dL Borderline high LDL 160-189 mg/dL High LDL greater than 189 mg/dL Very high Performed By: #### A 1C WT eA, LIPID, TSH3, CBC, CMP #### [facility] [address] Triglyceride w/Reflex 78 mg/dL Normal 0-149 [facility] Comment on above: Order Comment: Reaso [...] WT eA, LIPID, TSH3, CBC, CMP #### [facility] [address] VLDL CHOLESTEROL 15 mg/dL Normal [facility] Comment on above: Order Comment: Reaso n for Exam Hyperlipidemia Performed By: #### A 1C WT eA, LIPID, TSH3, CBC, CMP #### [facility] [address] [place] [address] [place] Lymphocytes Auto (Bld) [#/Vo l]Ordered By: Prem Goel on 03-12-2023 Lymphocytes (Bld) [#/Vol] 2.6 10*3/uL 1.00-4.8 [facility] Lymphocytes/100 WBC Auto (Bl d)Ordered By: Prem Goel on 03-12-2023 Lymphocytes/100 WBC (Bld) 42.3 % . [facility] MCH Auto (RBC) [Entitic mass ]Ordered By: Prem Goel on 03-12-2023 MCH (RBC) [Entitic mass] 29.8 pg 24.7-34.3 [facility] MCHC Auto (RBC) [Mass/Vol]Or dered By: Prem Goel on 03-12-2023 MCHC (RBC) [Mass/Vol] 33.0 g/dL 32.0-35.0 [facility] MCV Auto (RBC) [Entitic vol] Ordered By: Prem Goel on 03-12-2023 MCV (RBC) [Entitic vol] 90.5 fL 80-100 [facility] Monocytes Auto (Bld) [#/Vol] Ordered By: Prem Goel on 03-12-2023 Monocytes (Bld) [#/Vol] 0.6 10*3/uL 0.0-0.8 [facility] Monocytes/100 WBC Auto (Bld) Ordered By: Prem Goel on 03-12-2023 Monocytes/100 WBC (Bld) 9.1 % . [facility] Neutrophils Auto (Bld) [#/Vo l]Ordered By: Prem Goel on 03-12-2023 Neutrophils (Bld) [#/Vol] 2.8 10*3/uL 1.8-7.7 [facility] Neutrophils/100 WBC Auto (Bl d)Ordered By: Prem Goel on 03-12-2023 Neutrophils/100 WBC (Bld) 45.6 % . [facility] No Panel InformationOrdered By: Prem Goel on 03-12-2023 Estimated GFR (CKD-EPI) > 60.0 mL/Min [facility] Creatinine Clearance (Chem N/A [facility] Nucleated erythrocytes [Pres ence] in Blood by Automated countOrdered By: Prem Goel on 03-12-2023 Nucleated RBC Auto Ql (Bld) 0.1 /100{WBC} 0-0.5 [facility] Platelet mean volume Auto (B ld) [Entitic vol]Ordered By: Prem Goel on 03-12-2023 Platelet mean volume (Bld) [Entitic vol] 10.2 fL 6.3-10.7 [facility] Platelets Auto (Bld) [#/Vol] Ordered By: Prem Goel on 03-12-2023 Platelets (Bld) [#/Vol] 201 10*3/uL 150-450 [facility] Potassium [Moles/volume] in Serum or PlasmaOrdered By: Prem Goel on 03-12-2023 Potassium [Moles/Vol] 4.3 mmol/L 3.5-5.1 [facility] Protein [Mass/volume] in Ser um or PlasmaOrdered By: Prem Goel on 03-12-2023 Protein [Mass/Vol] 6.1 g/dL 6.4-8.9 [facility] RBC Auto (Bld) [#/Vol]Ordere d By: Prem Goel on 03-12-2023 RBC (Bld) [#/Vol] 4.99 10*6/uL 3.60-5.00 [facility] Serum or plasma albumin/glob ulin mass ratioOrdered By: Prem Goel on 03-12-2023 Albumin/Globulin [Mass ratio] 1.8 {ratio} [facility] Serum or plasma anion gap de terminationOrdered By: Prem Goel on 03-12-2023 Anion gap [Moles/Vol] 10.1 mmol/L 6.0-15.0 [facility] Serum or plasma high density lipoprotein (HDL) cholesterol measurementOrdered By: Prem Goel on 03-12-2023 Cholesterol in HDL [Mass/Vol] 66 mg/dL 23-92 [facility] Comment on above: HDL CHOL ATP-III CLA SSIFICATION Cardiovascular RiskHDL > or equal to 60 mg/dL LOWHDL < 40 mg/dL HIGH Serum or plasma total choles terol/high density lipoprotein (HDL) cholesterol mass ratOrdered By: Prem Goel on 03-12-2023 Cholesterol.total/Araceli sterol in HDL [Mass ratio] 3.5 {ratio} <5.0 [facility] Sodium [Moles/volume] in Ser um or PlasmaOrdered By: Prem Goel on 03-12-2023 Sodium [Moles/Vol] 141 mmol/L 136-145 [facility] Thyroid Stimulating Hormoneo n 03-12-2023 TSH Qn 1.91 m[IU]/L Normal 0.45-5.33 [facility] Comment on above: Order Comment: Reaso n for Exam Hyperlipidemia Result Comment: PERF ORMED BY: [place] [address] PATHOLOGIST LIQUOR INSPECTOR BEV TALBERT M.D. Performed By: #### A 1C WTH eA, LIPID, TSH3, CBC, CMP #### [address] Thyrotropin [Units/volume] i n Serum or PlasmaOrdered By: Prem Goel on 03-12-2023 TSH Qn 1.91 m[IU]/L 0.45-5.33 [facility] Triglyceride [Mass/volume] i n Serum or PlasmaOrdered By: Prem Goel on 03-12-2023 Triglyceride [Mass/Vol] 78 mg/dL 0-149 [facility] Comment on above: TRIG ATP III CLASSIF ICATIONTRIG less than 150 mg/dL NormalTRIG 150-199 mg/dL Borderline highTRIG 200-500 mg/dL High TRIG greater than 500 mg/dL Very highStandard traceable to the Center for Disease Conrtrol and Prevention (CDC) test method. Urea nitrogen [Mass/volume] in Serum or PlasmaOrdered By: Prem Goel on 03-12-2023 Urea nitrogen [Mass/Vol] 18 mg/dL 12-30 [facility] WBC Auto (Bld) [#/Vol]Ordere d By: Prem Goel on 03-12-2023 WBC (Bld) [#/Vol] 6.1 10*3/uL 3.8-11.6 [facility] A1C with Estimated Average G luon 10-30-2022 Glucose [Mass/Vol] 128 mg/dL Normal [facility] Comment on above: Order Comment: Reaso n for Exam Hyperlipidemia Result Comment: PERF ORMED BY: [place] [address] PATHOLOGIST LIQUOR INSPECTOR BEV TALBERT M.D. Performed By: #### A 1C WTH eA, LIPID, TSH3, CBC, CMP #### [facility] [address] HbA1c (Bld) [Mass fraction] 6.1 % High 4.3-5.6 [facility] Comment on above: Order Comment: Reaso n for Exam Hyperlipidemia Result Comment: Incr eased risk for diabetes: 5.7 - 6.4 diabetes: >6.4 glycemic control for adults with diabetes: <7.0 Performed By: #### A 1C [facility] eA, LIPID, TSH3, CBC, CMP #### [facility] [address] Complete Blood Count Auto Di ffon 10-30-2022 Basophils (Bld) [#/Vol] 0.0 10*3/uL Normal 0.0-0.2 [facility] Comment on above: Order Comment: Reaso n for Exam Hyperlipidemia Result Comment: PERF ORMED BY: [place] [address] PATHOLOGIST LIQUOR INSPECTOR BEV TALBERT M.D. Performed By: #### C BC #### [address] Basophils/100 WBC (Bld) 0.6 % Normal . [facility] Comment on above: Order Comment: Reaso n for Exam Hyperlipidemia Performed By: #### C BC #### [address] Eosinophils (Bld) [#/Vol] 0.5 10*3/uL High 0.0-0.45 [facility] Comment on above: Order Comment: Reaso n for Exam Hyperlipidemia Performed By: #### C BC #### [address] Eosinophils/100 WBC (Bld) 8.1 % Normal . [facility] Comment on above: Order Comment: Reaso n for Exam Hyperlipidemia Performed By: #### C BC #### [address] Erythrocyte distribution width (RBC) [Ratio] 13.8 % Normal 11.9-15.3 [facility] Comment on above: Order Comment: Reaso n for Exam Hyperlipidemia Performed By: #### C BC #### [address] Hematocrit (Bld) [Volume fraction] 43.9 % Normal 34.0-46.4 [facility] Comment on above: Order Comment: Reaso n for Exam Hyperlipidemia Performed By: #### C BC #### [address] Hemoglobin (Bld) [Mass/Vol] 14.6 g/dL Normal 11.8-15.4 [facility] Comment on above: Order Comment: Reaso n for Exam Hyperlipidemia Performed By: #### C BC #### [address] Lymphocytes (Bld) [#/Vol] 1.5 10*3/uL Normal 1.00-4.8 [facility] Comment on above: Order Comment: Reaso n for Exam Hyperlipidemia Performed By: #### C BC #### [address] Lymphocytes/100 WBC (Bld) 27.1 % Normal . [facility] Comment on above: Order Comment: Reaso n for Exam Hyperlipidemia Performed By: #### C BC #### [address] MCH (RBC) [Entitic mass] 30.0 pg Normal 24.7-34.3 [facility] Comment on above: Order Comment: Reaso n for Exam Hyperlipidemia Performed By: #### C BC #### [address] MCV (RBC) [Entitic vol] 90.4 fL Normal 80-100 F [facility] Comment on above: Order Comment: Reaso n for Exam Hyperlipidemia Performed By: #### C BC #### [address] Mean Corpuscular HGB Conc 33.3 g/dL Normal 32.0-35.0 [facility] Comment on above: Order Comment: Reaso n for Exam Hyperlipidemia Performed By: #### C BC #### [facility] [address] [place] [address] [place] Monocytes (Bld) [#/Vol] 0.6 10*3/uL Normal 0.0-0.8 [facility] Comment on above: Order Comment: Reaso n for Exam Hyperlipidemia Performed By: #### C BC #### [facility] [address] [place] [address] [place] Monocytes/100 WBC (Bld) 10.7 % Normal . F [facility] Comment on above: Order Comment: Reaso n for Exam Hyperlipidemia Performed By: #### C BC #### [place] [address] [place] Neutrophils (Bld) [#/Vol] 3.0 10*3/uL Normal 1.8-7.7 [facility] Comment on above: Order Comment: Reaso n for Exam Hyperlipidemia Performed By: #### C BC #### [place] [address] [place] Neutrophils/100 WBC (Bld) 53.5 % Normal . [facility] Comment on above: Order Comment: Reaso n for Exam Hyperlipidemia Performed By: #### C BC #### [facility] [address] [place] [address] NRBC% 0.1 /100{WBC} Normal 0-0.5 [facility] Comment on above: Order Comment: Reaso n for Exam Hyperlipidemia Performed By: #### C BC #### [facility] [address] [place] [address] [place] Platelet mean volume (Bld) [Entitic vol] 9.7 fL Normal 6.3-10.7 [facility] Comment on above: Order Comment: Reaso n for Exam Hyperlipidemia Performed By: #### C BC #### [facility] [address] [place] [address] [place] Platelets (Bld) [#/Vol] 196 10*3/uL Normal 150-450 [facility] Comment on above: Order Comment: Reaso n for Exam Hyperlipidemia Performed By: #### C BC #### [place] [address] [place] RBC (Bld) [#/Vol] 4.86 10*6/uL Normal 3.60-5.00 [facility] Comment on above: Order Comment: Reaso n for Exam Hyperlipidemia Performed By: #### C BC #### [facility] [address] WBC (Bld) [#/Vol] 5.7 10*3/uL Normal 3.8-11.6 [facility] Comment on above: Order Comment: Reaso n for Exam Hyperlipidemia Performed By: #### C BC #### [facility] [address] [place] [address] Comprehensive Metabolic Pane [place] 10-30-2022 Albumin [Mass/Vol] 3.6 g/dL Normal 3.5-5.7 [facility] Comment on above: Order Comment: Reaso n for Exam Hyperlipidemia Performed By: #### T SH3, CMP, LIPID #### [facility] [address] [place] [address] Albumin/Globulin [Mass ratio] 1.2 {ratio} Normal [facility] Comment on above: Order Comment: Reaso n for Exam Hyperlipidemia Performed By: #### T SH3, CMP, LIPID #### [facility] [address] [place] [address] ALP [Catalytic activity/Vol] 102 U/L Normal 34-104 [facility] Comment on above: Order Comment: Reaso n for Exam Hyperlipidemia Performed By: #### T SH3, CMP, LIPID #### [facility] [address] [place] [address] ALT [Catalytic activity/Vol] 14 U/L Normal 7-52 [facility] Comment on above: Order Comment: Reaso n for Exam Hyperlipidemia Performed By: #### T SH3, CMP, LIPID #### [facility] [address] [place] [address] Anion gap [Moles/Vol] 9.0 mmol/L Normal 6.0-15.0 [facility] Comment on above: Order Comment: Reaso n for Exam Hyperlipidemia Performed By: #### T SH3, CMP, LIPID #### [facility] [address] AST [Catalytic activity/Vol] 18 U/L Normal 13-39 [facility] Comment on above: Order Comment: Reaso n for Exam Hyperlipidemia Performed By: #### T SH3, CMP, LIPID #### [facility] [address] Bilirubin [Mass/Vol] 0.5 mg/dL Normal 0.3-1.0 [facility] Comment on above: Order Comment: Reaso n for Exam Hyperlipidemia Performed By: #### T SH3, CMP, LIPID #### [facility] [address] Calcium [Mass/Vol] 9.0 mg/dL Normal 8.6-10.3 [facility] Comment on above: Order Comment: Reaso n for Exam Hyperlipidemia Performed By: #### T SH3, CMP, LIPID #### [facility] [address] [place] [address] Chloride [Moles/Vol] 106 mmol/L Normal 98-107 [facility] Comment on above: Order Comment: Reaso n for Exam Hyperlipidemia Performed By: #### T SH3, CMP, LIPID #### [facility] [address] [place] [address] CO2 [Moles/Vol] 30.8 mmol/L Normal 21.0-31.0 [facility] Comment on above: Order Comment: Reaso n for Exam Hyperlipidemia Performed By: #### T SH3, CMP, LIPID #### [facility] [address] [place] [address] [place] Creatinine [Mass/Vol] 0.75 mg/dL Normal 0.60-1.20 [facility] Comment on above: Order Comment: Reaso n for Exam Hyperlipidemia Performed By: #### T SH3, CMP, LIPID #### [facility] [address] [place] [address] [place] GFR/1.73 sq M.predicted MDRD (S/P/Bld) [Vol rate/Area] mL/min/{1.73_m2} Normal [facility] Comment on above: Order Comment: Reaso n for Exam Hyperlipidemia Performed By: #### T SH3, CMP, LIPID #### [facility] [address] [place] [id number] [facility] Globulin (S) [Mass/Vol] 2.9 g/dL Normal F [facility] Comment on above: Order Comment: Reaso n for Exam Hyperlipidemia Performed By: #### T SH3, CMP, LIPID #### [facility] [address] Glucose [Mass/Vol] 92 mg/dL Normal 70-100 [facility] Comment on above: Order Comment: Reaso n for Exam Hyperlipidemia Result Comment: [facility] Glucose Reference Range is dependent on time and content of last meal. Glucose of more than 200 mg/dL in a nonstressed, ambulatory subject supports the diagnosis of Diabetes Mellitus. ADA recommended reference range Performed By: #### T SH3, CMP, LIPID #### [facility] [address] Potassium [Moles/Vol] 4.8 mmol/L Normal 3.5-5.1 [facility] Comment on above: Order Comment: Reaso n for Exam Hyperlipidemia Performed By: #### T SH3, CMP, LIPID #### [facility] [address] [place] [address] Protein [Mass/Vol] 6.5 g/dL Normal 6.4-8.9 [facility] Comment on above: Order Comment: Reaso n for Exam Hyperlipidemia Performed By: #### T SH3, CMP, LIPID #### [facility] [address] [place] [address] [place] Sodium [Moles/Vol] 141 mmol/L Normal 136-145 [facility] Comment on above: Order Comment: Reaso n for Exam Hyperlipidemia Performed By: #### T SH3, CMP, LIPID #### [facility] [address] [place] [id number] [facility] Urea nitrogen [Mass/Vol] 18 mg/dL Normal 7-25 [facility] Comment on above: Order Comment: Reaso n for Exam Hyperlipidemia Performed By: #### T SH3, CMP, LIPID #### [facility] [address] Lipid Panelon 10-30-2022 Cholesterol [Mass/Vol] 218 mg/dL High 140-200 [facility] Comment on above: Order Comment: Reaso n for Exam Hyperlipidemia Result Comment: Chol less than 200 mg/dl low risk Chol 201-239 mg/dl borderline risk Chol 240 mg/dl and greater high risk Performed By: #### T SH3, CMP, LIPID #### [facility] [address] [place] [address] [place] Cholesterol in HDL [Mass/Vol] 51 mg/dL Normal 35-85 [facility] Comment on above: Order Comment: Reaso n for Exam Hyperlipidemia Result Comment: HDL CHOL ATP-III CLASSIFICATION Cardiovascular Risk HDL > or equal to 60 mg/dL LOW HDL < 40 mg/dL HIGH Performed By: #### T SH3, CMP, LIPID #### [facility] [address] [place] [address] [place] Cholesterol.total/Araceli sterol in HDL [Mass ratio] 4.3 {ratio} Normal <5.0 [facility] Comment on above: Order Comment: Reaso n for Exam Hyperlipidemia Performed By: #### T SH3, CMP, LIPID #### [facility] [address] [place] [address] [place] LDL Cholesterol,Calculated 151 mg/dL High 0-100 [facility] Comment on above: Order Comment: Reaso n for Exam Hyperlipidemia Result Comment: LDL ATP III CLASSIFICATION LDL less than 100 mg/dL Optimal LDL 100-129 mg/dL Near or above optimal LDL 130-159 mg/dL Borderline high LDL 160-189 mg/dL High LDL greater than 189 mg/dL Very high Performed By: #### T SH3, CMP, LIPID #### [facility] [address] [place] [address] [place] Triglyceride w/Reflex 78 mg/dL Normal 0-149 [facility] Comment on above: Order Comment: Reaso n for Exam Hyperlipidemia Result Comment: TRIG ATP III CLASSIFICATION TRIG less than 150 mg/dL Normal TRIG 150-199 mg/dL Borderline high TRIG 200-500 mg/dL High TRIG greater than 500 mg/dL Very high Standard traceable to the Center for Disease Conrtrol and Prevention (CDC) test method. Performed By: #### T SH3, CMP, LIPID #### [facility] [address] VLDL CHOLESTEROL 15 mg/dL Normal [facility] Comment on above: Order Comment: Reaso n for Exam Hyperlipidemia Performed By: #### T SH3, CMP, LIPID #### [address] Thyroid Stimulating Hormoneo n 10-30-2022 TSH Qn 1.72 m[IU]/L Normal 0.45-5.33 [facility] Comment on above: Order Comment: Reaso n for Exam Hyperlipidemia Result Comment: PERF ORMED BY: [place] [address] PATHOLOGIST [employer] INSPECTOR BEV TALBERT M.D. Performed By: #### T SH3, CMP, LIPID #### [address] A1C with Estimated Average G luon 04-29-2022 Glucose [Mass/Vol] 126 mg/dL Normal [facility] Comment on above: Order Comment: Reaso n for Exam Hyperglycemia Result Comment: PERF ORMED BY: [place] [address] PATHOLOGIST [employer]QUOR INSPECTOR BEV TALBERT M.D. Performed By: #### A 1C WTH eA, LIPID, TSH3, CBC, CMP #### [address] HbA1c (Bld) [Mass fraction] 6.0 % High 4.3-5.6 [facility] Comment on above: Order Comment: Reaso n for Exam Hyperglycemia Result Comment: Incr eased risk for diabetes: 5.7 - 6.4 diabetes: >6.4 glycemic control for adults with diabetes: <7.0 Performed By: #### A 1C WTH eA, LIPID, TSH3, CBC, CMP #### [facility] [address] [place] [address] Albumin [Mass/volume] in Ser um or PlasmaOrdered By: Prem Goel on 04-29-2022 Albumin [Mass/Vol] 3.4 g/dL 3.2-5.5 [facility] Basophils Auto (Bld) [#/Vol] Ordered By: Prem Goel on 04-29-2022 Basophils (Bld) [#/Vol] 0.0 10*3/uL 0.0-0.2 [facility] Basophils/100 WBC Auto (Bld) Ordered By: Prem Goel on 04-29-2022 Basophils/100 WBC (Bld) 0.3 % . F [facility] Cholesterol [Mass/volume] in Serum or PlasmaOrdered By: Prem Goel on 04-29-2022 Cholesterol [Mass/Vol] 196 mg/dL 140-200 [facility] Comment on above: Chol less than 200 m g/dl low riskChol 201-239 mg/dl borderline riskChol 240 mg/dl and greater high risk Cholesterol in LDL Calc [Mas s/Vol]Ordered By: Prem Goel on 04-29-2022 Cholesterol in LDL [Mass/Vol] 109 mg/dL 0-100 [facility] Comment on above: LDL ATP III CLASSIFI CATIONLDL less than 100 mg/dL OptimalLDL 100-129 mg/dL Near or above optimalLDL 130-159 mg/dL Borderline highLDL 160-189 mg/dL HighLDL greater than 189 mg/dL Very high Cholesterol in VLDL Calc [Ma ss/Vol]Ordered By: Prem Goel on 04-29-2022 Cholesterol in VLDL [Mass/Vol] 10 mg/dL [facility] Complete Blood Count Auto Di ffon 04-29-2022 Basophils (Bld) [#/Vol] 0.0 10*3/uL Normal 0.0-0.2 [facility] Comment on above: Order Comment: Reaso n for Exam Hyperlipidemia Result Comment: PERF ORMED BY: [place] [address] PATHOLOGIST LIQUOR INSPECTOR BEV TALBERT M.D. Performed By: #### A 1C [facility] Garrett, LIPID, TSH3, CBC, CMP #### [facility] [address] Basophils/100 WBC (Bld) 0.3 % Normal . F [facility] Comment on above: Order Comment: Reaso n for Exam Hyperlipidemia Performed By: #### A 1C [facility] Garrett, LIPID, TSH3, CBC, CMP #### [address] Eosinophils (Bld) [#/Vol] 0.1 10*3/uL Normal 0.0-0.45 [facility] Comment on above: Order Comment: Reaso n for Exam Hyperlipidemia Performed By: #### A 1C WTH eA, LIPID, TSH3, CBC, CMP #### [address] Eosinophils/100 WBC (Bld) 0.5 % Normal . [facility] Comment on above: Order Comment: Reaso n for Exam Hyperlipidemia Performed By: #### A 1C WTH eA, LIPID, TSH3, CBC, CMP #### [address] Erythrocyte distribution width (RBC) [Ratio] 13.4 % Normal 11.9-15.3 [facility] Comment on above: Order Comment: Reaso n for Exam Hyperlipidemia Performed By: #### A 1C WTH eA, LIPID, TSH3, CBC, CMP #### [address] Hematocrit (Bld) [Volume fraction] 46.2 % Normal 34.0-46.4 [facility] Comment on above: Order Comment: Reaso n for Exam Hyperlipidemia Performed By: #### A 1C WTH eA, LIPID, TSH3, CBC, CMP #### [address] Hemoglobin (Bld) [Mass/Vol] 14.9 g/dL Normal 11.8-15.4 [facility] Comment on above: Order Comment: Reaso n for Exam Hyperlipidemia Performed By: #### A 1C WTH eA, LIPID, TSH3, CBC, CMP #### [address] Lymphocytes (Bld) [#/Vol] 1.9 10*3/uL Normal 1.00-4.8 [facility] Comment on above: Order Comment: Reaso n for Exam Hyperlipidemia Performed By: #### A 1C WTH eA, LIPID, TSH3, CBC, CMP #### [facility] [address] Lymphocytes/100 WBC (Bld) 17.7 % Normal . [facility] Comment on above: Order Comment: Reaso n for Exam Hyperlipidemia Performed By: #### A 1C WT eA, LIPID, TSH3, CBC, CMP #### [facility] [address] MCH (RBC) [Entitic mass] 30.0 pg Normal 24.7-34.3 [facility] Comment on above: Order Comment: Reaso n for Exam Hyperlipidemia Performed By: #### A 1C [facility] eA, LIPID, TSH3, CBC, CMP #### [facility] [address] MCV (RBC) [Entitic vol] 93.4 fL Normal 80-100 F [facility] Comment on above: Order Comment: Reaso n for Exam Hyperlipidemia Performed By: #### A 1C [facility] eA, LIPID, TSH3, CBC, CMP #### [address] Mean Corpuscular HGB Conc 32.1 g/dL Normal 32.0-35.0 [facility] Comment on above: Order Comment: Reaso n for Exam Hyperlipidemia Performed By: #### A 1C [facility] eA, LIPID, TSH3, CBC, CMP #### [address] Monocytes (Bld) [#/Vol] 1.1 10*3/uL High 0.0-0.8 [facility] Comment on above: Order Comment: Reaso n for Exam Hyperlipidemia Performed By: #### A 1C WT eA, LIPID, TSH3, CBC, CMP #### [place] [address] [place] Monocytes/100 WBC (Bld) 10.4 % Normal . [facility] Comment on above: Order Comment: Reaso n for Exam Hyperlipidemia Performed By: #### A 1C WT eA, LIPID, TSH3, CBC, CMP #### [place] [address] [place] Neutrophils (Bld) [#/Vol] 7.6 10*3/uL Normal 1.8-7.7 [facility] Comment on above: Order Comment: Reaso n for Exam Hyperlipidemia Performed By: #### A 1C WTH eA, LIPID, TSH3, CBC, CMP #### [facility] [address] Neutrophils/100 WBC (Bld) 71.1 % Normal . [facility] Comment on above: Order Comment: Reaso n for Exam Hyperlipidemia Performed By: #### A 1C WTH eA, LIPID, TSH3, CBC, CMP #### [facility] [address] [place] [address] [place] Nucleated RBC/100 WBC (Bld) [Ratio] 0.0 % Normal 0-0.5 [facility] Comment on above: Order Comment: Reaso n for Exam Hyperlipidemia Performed By: #### A 1C WTH eA, LIPID, TSH3, CBC, CMP #### [facility] [address] [place] [address] [place] Platelet mean volume (Bld) [Entitic vol] 10.2 fL Normal 6.3-10.7 [facility] Comment on above: Order Comment: Reaso n for Exam Hyperlipidemia Performed By: #### A 1C WTH eA, LIPID, TSH3, CBC, CMP #### [facility] [address] [place] [address] [place] Platelets (Bld) [#/Vol] 238 10*3/uL Normal 150-450 [facility] Comment on above: Order Comment: Reaso n for Exam Hyperlipidemia Performed By: #### A 1C WTH eA, LIPID, TSH3, CBC, CMP #### [facility] [address] [place] [address] [place] RBC (Bld) [#/Vol] 4.95 10*6/uL Normal 3.60-5.00 [facility] Comment on above: Order Comment: Reaso n for Exam Hyperlipidemia Performed By: #### A 1C WTH eA, LIPID, TSH3, CBC, CMP #### [facility] [address] [place] [address] [place] WBC (Bld) [#/Vol] 10.7 10*3/uL Normal 4.5-11.0 [facility] Comment on above: Order Comment: Reaso n for Exam Hyperlipidemia Performed By: #### A 1C WTH eA, LIPID, TSH3, CBC, CMP #### [facility] [address] Comprehensive Metabolic Pane [place] 04-29-2022 Albumin [Mass/Vol] 3.4 g/dL Normal 3.2-5.5 [facility] Comment on above: Order Comment: Reaso n for Exam Hyperlipidemia Performed By: #### A 1C WT eA, LIPID, TSH3, CBC, CMP #### [facility] [address] Albumin/Globulin [Mass ratio] 1.0 {ratio} Normal [facility] Comment on above: Order Comment: Reaso n for Exam Hyperlipidemia Performed By: #### A 1C WT eA, LIPID, TSH3, CBC, CMP #### [facility] [address] ALP [Catalytic activity/Vol] 100 U/L High 32-92 [facility] Comment on above: Order Comment: Reaso n for Exam Hyperlipidemia Performed By: #### A 1C WT eA, LIPID, TSH3, CBC, CMP #### [facility] [address] ALT [Catalytic activity/Vol] 18 U/L Normal 10-60 [facility] Comment on above: Order Comment: Reaso n for Exam Hyperlipidemia Performed By: #### A 1C WTH eA, LIPID, TSH3, CBC, CMP #### [facility] [address] [place] [id number] [facility] Anion gap [Moles/Vol] 10.5 mmol/L Normal 6.0-15.0 [facility] Comment on above: Order Comment: Reaso n for Exam Hyperlipidemia Performed By: #### A 1C WTH eA, LIPID, TSH3, CBC, CMP #### [facility] [address] AST [Catalytic activity/Vol] 19 U/L Normal 10-42 [facility] Comment on above: Order Comment: Reaso n for Exam Hyperlipidemia Performed By: #### A 1C WT eA, LIPID, TSH3, CBC, CMP #### [facility] [address] Bilirubin [Mass/Vol] 0.8 mg/dL Normal 0.3-1.2 [facility] Comment on above: Order Comment: Reaso n for Exam Hyperlipidemia Performed By: #### A 1C WT eA, LIPID, TSH3, CBC, CMP #### [facility] [address] Calcium [Mass/Vol] 9.2 mg/dL Normal 8.2-10.2 [facility] Comment on above: Order Comment: Reaso n for Exam Hyperlipidemia Performed By: #### A 1C WT eA, LIPID, TSH3, CBC, CMP #### [facility] [address] Chloride [Moles/Vol] 102 mmol/L Normal 95-114 [facility] Comment on above: Order Comment: Reaso n for Exam Hyperlipidemia Performed By: #### A 1C WT eA, LIPID, TSH3, CBC, CMP #### [facility] [address] [place] [address] [place] CO2 [Moles/Vol] 28.5 mmol/L Normal 22.0-30.0 [facility] Comment on above: Order Comment: Reaso n for Exam Hyperlipidemia Performed By: #### A 1C WTH eA, LIPID, TSH3, CBC, CMP #### [facility] [address] [place] [id number] [place] Creatinine [Mass/Vol] 0.80 mg/dL Normal 0.44-1.03 [facility] Comment on above: Order Comment: Reaso n for Exam Hyperlipidemia Performed By: #### A 1C WTH eA, LIPID, TSH3, CBC, CMP #### [facility] [address] [place] [address] [place] Estimated GFR ( Reshma > 60 Normal [facility] Comment on above: Order Comment: Reaso n for Exam Hyperlipidemia Result Comment: GFR estimated reference range: According to KDOQI guidelines, <60 ml/min/1.73m2 is sufficient to diagnose a patient with chronic kidney disease. Performed By: #### A 1C WTH eA, LIPID, TSH3, CBC, CMP #### [facility] [address] Estimated GFR (Non- Am > 60 Normal [facility] Comment on above: Order Comment: Reaso n for Exam Hyperlipidemia Performed By: #### A 1C WTH eA, LIPID, TSH3, CBC, CMP #### [facility] [address] Globulin (S) [Mass/Vol] 3.3 g/dL Normal [facility] Comment on above: Order Comment: Reaso n for Exam Hyperlipidemia Performed By: #### A 1C WTH eA, LIPID, TSH3, CBC, CMP #### [facility] [address] Glucose [Mass/Vol] 111 mg/dL High 70-100 [facility] Comment on above: Order Comment: Reaso n for Exam Hyperlipidemia Result Comment: [facility] Glucose Reference Range is dependent on time and content of last meal. Glucose of more than 200 mg/dL in a nonstressed, ambulatory subject supports the diagnosis of Diabetes Mellitus. ADA recommended reference range Performed By: #### A 1C WTH eA, LIPID, TSH3, CBC, CMP #### [address] Potassium [Moles/Vol] 4.0 mmol/L Normal 3.5-5.1 [facility] Comment on above: Order Comment: Reaso n for Exam Hyperlipidemia Performed By: #### A 1C WTH eA, LIPID, TSH3, CBC, CMP #### [facility] [address] Protein [Mass/Vol] 6.7 g/dL Normal 6.1-7.9 [facility] Comment on above: Order Comment: Reaso n for Exam Hyperlipidemia Performed By: #### A 1C WTH eA, LIPID, TSH3, CBC, CMP #### [facility] [address] [place] [address] [place] Sodium [Moles/Vol] 137 mmol/L Normal 136-146 [facility] Comment on above: Order Comment: Reaso n for Exam Hyperlipidemia Performed By: #### A 1C [facility] eA, LIPID, TSH3, CBC, CMP #### [facility] [address] [place] [id number] [place] Urea nitrogen [Mass/Vol] 14 mg/dL Normal 9-23 [facility] Comment on above: Order Comment: Reaso n for Exam Hyperlipidemia Performed By: #### A 1C WT eA, LIPID, TSH3, CBC, CMP #### [facility] [address] [place] [id number] [place] Creatinine and Glomerular fi ltration rate.predicted panel (S/P/Bld)Ordered By: Prem Goel on 04-29-2022 Creatinine [Mass/Vol] 0.80 mg/dL 0.44-1.03 [facility] Eosinophils Auto (Bld) [#/Vo l]Ordered By: Prem Goel on 04-29-2022 Eosinophils (Bld) [#/Vol] 0.1 10*3/uL 0.0-0.45 [facility] Eosinophils/100 WBC Auto (Bl d)Ordered By: Prem Goel on 04-29-2022 Eosinophils/100 WBC (Bld) 0.5 % . [facility] Erythrocyte distribution wid th Auto (RBC) [Ratio]Ordered By: Prem Goel on 04-29-2022 Erythrocyte distribution width (RBC) [Ratio] 13.4 % 11.9-15.3 [facility] Estimated glomerular filtrat ion rate (GFR) non- AmericanOrdered By: Prem Geol on 04-29-2022 GFR/1.73 sq M.predicted among non-blacks MDRD (S/P/Bld) [Vol rate/Area] > 60 mL/Min [facility] Globulin Calc (S) [Mass/Vol] Ordered By: Prem Goel on 04-29-2022 Globulin (S) [Mass/Vol] 3.3 g/dL F [facility] Hematocrit Auto (Bld) [Volum e fraction]Ordered By: Prem Goel on 04-29-2022 Hematocrit (Bld) [Volume fraction] 46.2 % 34.0-46.4 [facility] Hemoglobin [Mass/volume] in BloodOrdered By: Prem Goel on 04-29-2022 Hemoglobin (Bld) [Mass/Vol] 14.9 g/dL 11.8-15.4 [facility] Laboratory - Hematology and Cell countsOrdered By: Prem Goel on 04-29-2022 Nucleated RBC/100 WBC (Bld) [Ratio] 0.0 % 0-0.5 [facility] Leukocytes [#/volume] in Blo od by Automated countOrdered By: Prem Goel on 04-29-2022 WBC (Bld) [#/Vol] 10.7 10*3/uL 4.5-11.0 [facility] Lipid Panelon 04-29-2022 Cholesterol [Mass/Vol] 196 mg/dL Normal 140-200 [facility] Comment on above: Order Comment: Reaso n for Exam Hyperlipidemia Result Comment: Chol less than 200 mg/dl low risk Chol 201-239 mg/dl borderline risk Chol 240 mg/dl and greater high risk Performed By: #### A 1C WTH eA, LIPID, TSH3, CBC, CMP #### [facility] [address] [place] [id number] [place] Cholesterol in HDL [Mass/Vol] 76 mg/dL Normal 35-85 [facility] Comment on above: Order Comment: Reaso n for Exam Hyperlipidemia Result Comment: HDL CHOL ATP-III CLASSIFICATION Cardiovascular Risk HDL > or equal to 60 mg/dL LOW HDL < 40 mg/dL HIGH Performed By: #### A 1C WTH eA, LIPID, TSH3, CBC, CMP #### [facility] [address] [place] [address] [place] Cholesterol.total/Araceli sterol in HDL [Mass ratio] 2.6 {ratio} Normal <5.0 [facility] Comment on above: Order Comment: Reaso n for Exam Hyperlipidemia Performed By: #### A 1C WTH eA, LIPID, TSH3, CBC, CMP #### [facility] [address] [place] [address] [place] LDL Cholesterol,Calculated 109 mg/dL High 0-100 [facility] Comment on above: Order Comment: Reaso n for Exam Hyperlipidemia Result Comment: LDL ATP III CLASSIFICATION LDL less than 100 mg/dL Optimal LDL 100-129 mg/dL Near or above optimal LDL 130-159 mg/dL Borderline high LDL 160-189 mg/dL High LDL greater than 189 mg/dL Very high Performed By: #### A 1C WTH eA, LIPID, TSH3, CBC, CMP #### [facility] [address] Triglyceride w/Reflex 53 mg/dL Normal 35-149 [facility] Comment on above: Order Comment: Reaso [...] WTH eA, LIPID, TSH3, CBC, CMP #### [facility] [address] VLDL CHOLESTEROL 10 mg/dL Normal [facility] Comment on above: Order Comment: Reaso n for Exam Hyperlipidemia Performed By: #### A 1C WTH eA, LIPID, TSH3, CBC, CMP #### [facility] [address] [place] [address] [place] Lymphocytes Auto (Bld) [#/Vo l]Ordered By: Prem Goel on 04-29-2022 Lymphocytes (Bld) [#/Vol] 1.9 10*3/uL 1.00-4.8 [facility] Lymphocytes/100 WBC Auto (Bl d)Ordered By: Prem Goel on 04-29-2022 Lymphocytes/100 WBC (Bld) 17.7 % . [facility] MCH Auto (RBC) [Entitic mass ]Ordered By: Prem Goel on 04-29-2022 MCH (RBC) [Entitic mass] 30.0 pg 24.7-34.3 [facility] MCHC Auto (RBC) [Mass/Vol]Or dered By: Prem Goel on 04-29-2022 MCHC (RBC) [Mass/Vol] 32.1 g/dL 32.0-35.0 [facility] MCV Auto (RBC) [Entitic vol] Ordered By: Prem Goel on 04-29-2022 MCV (RBC) [Entitic vol] 93.4 fL 80-100 [facility] Monocytes Auto (Bld) [#/Vol] Ordered By: Prem Goel on 04-29-2022 Monocytes (Bld) [#/Vol] 1.1 10*3/uL 0.0-0.8 [facility] Monocytes/100 WBC Auto (Bld) Ordered By: Prem Goel on 04-29-2022 Monocytes/100 WBC (Bld) 10.4 % . [facility] Neutrophils Auto (Bld) [#/Vo l]Ordered By: Prem Goel on 04-29-2022 Neutrophils (Bld) [#/Vol] 7.6 10*3/uL 1.8-7.7 [facility] Neutrophils/100 WBC Auto (Bl d)Ordered By: Prem Goel on 04-29-2022 Neutrophils/100 WBC (Bld) 71.1 % . [facility] No Panel InformationOrdered By: Prem Goel on 04-29-2022 Estimated GFR () > 60 mL/Min [facility] Comment on above: GFR estimated refere nce range: According to KDOQI guidelines, <60 ml/min/1.73m2 is sufficient to diagnose a patient with chronic kidney disease. Pharmacy Creatinine Clearance (Chem N/A [facility] Platelet mean volume Auto (B ld) [Entitic vol]Ordered By: Prem Goel on 04-29-2022 Platelet mean volume (Bld) [Entitic vol] 10.2 fL 6.3-10.7 [facility] Platelets Auto (Bld) [#/Vol] Ordered By: Prem Goel on 04-29-2022 Platelets (Bld) [#/Vol] 238 10*3/uL 150-450 [facility] Protein [Mass/volume] in Ser um or PlasmaOrdered By: Prem Goel on 04-29-2022 Protein [Mass/Vol] 6.7 g/dL 6.1-7.9 [facility] RBC Auto (Bld) [#/Vol]Ordere d By: Prem Goel on 04-29-2022 RBC (Bld) [#/Vol] 4.95 10*6/uL 3.60-5.00 [facility] Serum or plasma alanine tobias otransferase measurement without P-5'-P (enzymatic activiOrdered By: Prem Goel on 04-29-2022 ALT No additional P-5'-P [Catalytic activity/Vol] 18 U/L 10-60 [facility] Serum or plasma albumin/glob ulin mass ratioOrdered By: Prem Goel on 04-29-2022 Albumin/Globulin [Mass ratio] 1.0 {ratio} [facility] Serum or plasma alkaline joshua sphatase measurement (enzymatic activity/volume)Ordered By: Prem Goel on 04-29-2022 ALP [Catalytic activity/Vol] 100 U/L 32-92 [facility] Serum or plasma anion gap de terminationOrdered By: Prem Goel on 04-29-2022 Anion gap [Moles/Vol] 10.5 mmol/L 6.0-15.0 [facility] Serum or plasma aspartate am inotransferase measurement (enzymatic activity/volume)Ordered By: Prem Goel on 04-29-2022 AST [Catalytic activity/Vol] 19 U/L 10-42 [facility] Serum or plasma calcium erica urement (mass/volume)Ordered By: Prem Goel on 04-29-2022 Calcium [Mass/Vol] 9.2 mg/dL 8.2-10.2 [facility] Serum or plasma chloride omaira surement (moles/volume)Ordered By: Prem Goel on 04-29-2022 Chloride [Moles/Vol] 102 mmol/L 95-114 [facility] Serum or plasma glucose erica urement (mass/volume)Ordered By: Prem Goel on 04-29-2022 Glucose [Mass/Vol] 111 mg/dL 70-100 [facility] Comment on above: ADA recommended refe rence rangeRandom Glucose Reference Range is dependent on time and content of last meal. Glucose of more than 200 mg/dL in a nonstressed, ambulatory subject supports the diagnosis of Diabetes Mellitus. Serum or plasma high density lipoprotein (HDL) cholesterol measurementOrdered By: Prem Goel on 04-29-2022 Cholesterol in HDL [Mass/Vol] 76 mg/dL 35-85 [facility] Comment on above: HDL CHOL ATP-III CLA SSIFICATION Cardiovascular RiskHDL > or equal to 60 mg/dL LOWHDL < 40 mg/dL HIGH Serum or plasma potassium me asurement (moles/volume)Ordered By: Prem Goel on 04-29-2022 Potassium [Moles/Vol] 4.0 mmol/L 3.5-5.1 [facility] Serum or plasma sodium measu rement (moles/volume)Ordered By: Prem Goel on 04-29-2022 Sodium [Moles/Vol] 137 mmol/L 136-146 [facility] Serum or plasma total biliru bin measurement (mass/volume)Ordered By: Prem Goel on 04-29-2022 Bilirubin [Mass/Vol] 0.8 mg/dL 0.3-1.2 [facility] Serum or plasma total carbon dioxide measurement (moles/volume)Ordered By: Prem Goel on 04-29-2022 CO2 [Moles/Vol] 28.5 mmol/L 22.0-30.0 [facility] Serum or plasma total choles terol/high density lipoprotein (HDL) cholesterol mass ratOrdered By: Prem Goel on 04-29-2022 Cholesterol.total/Araceli sterol in HDL [Mass ratio] 2.6 {ratio} <5.0 [facility] Serum or plasma urea nitroge n measurement (mass/volume)Ordered By: Prem Goel on 04-29-2022 Urea nitrogen [Mass/Vol] 14 mg/dL - [facility] TSH DL <= 0.005 mIU/L QnOrde red By: Prem Goel on 04-29-2022 TSH Qn 1.74 m[IU]/L 0.45-5.33 [facility] Thyroid Stimulating Hormoneo n 04-29-2022 TSH Qn 1.74 m[IU]/L Normal 0.45-5.33 [facility] Comment on above: Order Comment: Reaso n for Exam Hyperlipidemia Result Comment: PERF ORMED BY: [place] [address] PATHOLOGIST LIQUOR INSPECTOR BEV TALBERT M.D. Performed By: #### A 1C [facility] eA, LIPID, TSH3, CBC, CMP #### [address] Triglyceride [Mass/volume] i n Serum or PlasmaOrdered By: Prem Goel on 04-29-2022 Triglyceride [Mass/Vol] 53 mg/dL 35-149 F [facility] Comment on above: TRIG ATP III CLASSIF ICATIONTRIG less than 150 mg/dL NormalTRIG 150-199 mg/dL Borderline highTRIG 200-500 mg/dL High TRIG greater than 500 mg/dL Very highStandard traceable to the Center for Disease Conrtrol and Prevention (CDC) test method. A1C HEMOGLOBINon 04-30-2021 HbA1c (Bld) [Mass fraction] 5.8 % [facility] Other HbA1c (Bld) [Mass fraction]o n 04-30-2021 A1C HEMOGLOBIN [facility] Other [facility] CARDIAC STRESS/REST (DOUGLAS CARDIAL PERFUSION/MIBI)on 04-09-2020 [facility] CARDIAC STRESS/REST (MYOCARDIAL PERFUSION/MIBI) Patient Name: ISAIAS WILKERSON STUDY: MYOCARDIAL PERFUSION STRESS TEST WITH LEXISCAN Performing facility: [facility], [address] [place] [address], [address] Provider: WP SMYTH PCP: Dr. PREM GOEL Supervising provider: WP SMYTH INDICATION: CP HISTORY: Gender: F; Age: 84 y/o ; Height: 157.48 cm; Weight: 78.1084450 kg. High Cholesterol; CP Family HX CAD; Denies smoking. COMPARISON: Previous nuclear testing completed at [facility]. ACCESSION NUMBER(S): [id number] ORDERING CLINICIAN: MATT SMYTH TECHNIQUE: ONE DAY [...] Electronically signed by: BRIELLE DUVAL MD Normal [facility] CARDIAC STRESS/REST INJE CTIONon 04-09-2020 [facility] CARDIAC STRESS/REST INJECTION Patient Name: ISAIAS WILKERSON STUDY: MYOCARDIAL PERFUSION STRESS TEST WITH LEXISCAN Performing facility: [facility], [address] [place] [address], [address], [address] Provider: WP SMYTH PCP: Dr. PREM GOEL Supervising provider: WP SMYTH INDICATION: CP HISTORY: Gender: F; Age: 84 y/o ; Height: 157.48 cm; Weight: 78.5297366 kg. High Cholesterol; CP Family HX CAD; Denies smoking. COMPARISON: Previous nuclear testing completed at [facility]. ACCESSION NUMBER(S): [id number] ORDERING CLINICIAN: MATT SMYTH TECHNIQUE: ONE DAY [...] Electronically signed by: BRIELLE DUVAL MD Normal [facility] PART 2 STRESS OR REST (N O CHARGE)on 04-09-2020 [facility] PART 2 STRESS OR REST (NO CHARGE) Patient Name: ISAIAS WILKERSON STUDY: MYOCARDIAL PERFUSION STRESS TEST WITH LEXISCAN Performing facility: [facility], [address] [place] [address], [address], [address] Provider: WP SMYTH PCP: Dr. PREM GOEL Supervising provider: WP SMYTH INDICATION: CP HISTORY: Gender: F; Age: 84 y/o ; Height: 157.48 cm; Weight: 78.4953917 kg. High Cholesterol; CP Family HX CAD; Denies smoking. COMPARISON: Previous nuclear testing completed at [facility]. ACCESSION NUMBER(S): [id number] ORDERING CLINICIAN: MATT SMYTH TECHNIQUE: ONE DAY [...] comparison. Electronically signed by: BRIELLE DUVAL MD [facility] Vital Signs Date Time Vital Sign Value Performing Clinician Facility 03-17-2023 08:45-0400 Body height 154.94 cm Prem Goel Other [facility] Other 03-17-2023 08:45-0400 Body mass index (BMI) [Ratio] 30.98 kg/m2 Prem Goel Other [facility] Other 03-17-2023 08:45-0400 Body weight 74.39 kg Prem Goel Other [facility] Other 03-17-2023 08:45-0400 Diastolic blood pressure 76 mm[Hg] Prem Goel Other [facility] Other 03-17-2023 08:45-0400 Respiratory rate 16 /min Prem Goel Other [facility] Other 03-17-2023 08:45-0400 SaO2% (BldA) [Mass fraction] 96 % Prem Kuns Other [facility] Other 03-17-2023 08:45-0400 Systolic blood pressure 120 mm[Hg] Prem Kuns Other [facility] Other 11-12-2022 14:45-0400 Body height 154.94 cm Prem Kuns Other [facility] Other 11-12-2022 14:45-0400 Body mass index (BMI) [Ratio] 31.36 kg/m2 Prem Kuns Other [facility] Other 11-12-2022 14:45-0400 Body weight 75.3 kg Prem Kuns Other [facility] Other 11-12-2022 14:45-0400 Diastolic blood pressure 68 mm[Hg] Prem Kuns Other [facility] Other 11-12-2022 14:45-0400 Respiratory rate 16 /min Prem Kuns Other [facility] Other 11-12-2022 14:45-0400 SaO2% (BldA) [Mass fraction] 93 % Prem Kuns Other [facility] Other 11-12-2022 14:45-0400 Systolic blood pressure 124 mm[Hg] Prem Kuns Other [facility] Other 01-28-2022 11:15-0400 Body height 154.94 cm Prem Kuns Other [facility] Other 01-28-2022 11:15-0400 Body mass index (BMI) [Ratio] 30.98 kg/m2 Prem Kuns Other [facility] Other 01-28-2022 11:15-0400 Body weight 74.39 kg Prem Kuns Other [facility] Other 01-28-2022 11:15-0400 Diastolic blood pressure 82 mm[Hg] Prem Kuns Other [facility] Other 01-28-2022 11:15-0400 Respiratory rate 18 /min Prem Kuns Other [facility] Other 01-28-2022 11:15-0400 SaO2% (BldA) [Mass fraction] 95 % Prem Kuns Other [facility] Other 01-28-2022 11:15-0400 Systolic blood pressure 142 mm[Hg] Prem Kuns Other [facility] Other 08-15-2021 14:45-0500 Body height 154.94 cm Prem Kuns Other [facility] Other 08-15-2021 14:45-0500 Body mass index (BMI) [Ratio] 30.04 kg/m2 Prem Kuns Other [facility] Other 08-15-2021 14:45-0500 Body weight 72.12 kg Prem Kuns Other [facility] Other 08-15-2021 14:45-0500 Diastolic blood pressure 80 mm[Hg] Prem Kuns Other [facility] Other 08-15-2021 14:45-0500 Respiratory rate 16 /min Prem Kuns Other [facility] Other 08-15-2021 14:45-0500 SaO2% (BldA) [Mass fraction] 99 % Prem Kuns Other [facility] Other 08-15-2021 14:45-0500 Systolic blood pressure 142 mm[Hg] Prem Kuns Other [facility] Other 04-30-2021 11:45-0500 Body height 154.94 cm Prem Kuns Other [facility] Other 04-30-2021 11:45-0500 Body mass index (BMI) [Ratio] 29.74 kg/m2 Prem Kuns Other [facility] Other 04-30-2021 11:45-0500 Body weight 71.4 kg Prem Kuns Other [facility] Other 04-30-2021 11:45-0500 Diastolic blood pressure 87 mm[Hg] Prem Kuns Other [facility] Other 04-30-2021 11:45-0500 Respiratory rate 18 /min Prem Kuns Other [facility] Other 04-30-2021 11:45-0500 SaO2% (BldA) [Mass fraction] 93 % Prem Kuns Other [facility] Other 04-30-2021 11:45-0500 Systolic blood pressure 136 mm[Hg] Prem Kuns Other [facility] Other 02-28-2021 11:15-0400 Body height 154.94 cm Prem Kuns Other [facility] Other 02-28-2021 11:15-0400 Body mass index (BMI) [Ratio] 29.85 kg/m2 Prem Kuns Other [facility] Other 02-28-2021 11:15-0400 Body weight 71.67 kg Prem Kuns Other [facility] Other 02-28-2021 11:15-0400 Diastolic blood pressure 86 mm[Hg] Prem Kuns Other [facility] Other 02-28-2021 11:15-0400 Respiratory rate 16 /min Prem Kuns Other [facility] Other 02-28-2021 11:15-0400 SaO2% (BldA) [Mass fraction] 97 % Prem Kuns Other [facility] Other 02-28-2021 11:15-0400 Systolic blood pressure 134 mm[Hg] Prem Kuns Other [facility] Other Encounters Encounter Date Encounter Type Care Provider Facility Start: 05-27-2023 End: 05-27-2023 ambulatory Prem Kuns Other [facility] Other Start: 05-27-2023 Telephone encounter Prem Kuns [facility] Start: 03-17-2023 End: 03-17-2023 ambulatory Prem Kuns Other [facility] Other Start: 03-17-2023 Office outpatient visit 25 minutes [facility] Kuns [facility] Start: 03-12-2023 End: 03-12-2023 ambulatory Prem Kuns Facility:[facility] Start: 03-12-2023 End: 03-12-2023 ambulatory DO Prem Kuns Work Phone: [facility] Work Phone: Start: 03-12-2023 End: 03-12-2023 Patient encounter procedure DO Prem Kuns Work Phone: [facility] Work Phone: Start: 01-30-2023 End: 01-30-2023 ambulatory Prem Kuns Other [facility] Other Start: 01-30-2023 Telephone encounter Prem Kuns [facility] Start: 11-12-2022 End: 11-12-2022 ambulatory Prem Kuns Other [facility] Other Start: 11-12-2022 Office outpatient visit 25 minutes Prem Kuns [facility] Start: 11-04-2022 End: 11-04-[address] PREM GOEL Facility:[facility] Start: 11-04-2022 Telephone encounter Prem Kuns [facility] Start: 10-30-2022 End: 10-30-2022 ambulatory Prem Kuns Facility:[facility] Start: 10-14-2022 End: 10-14-[address] PREM [...] 05-06-2022 Annual wellness visit Prem arevalo Other [facility] Other Start: 04-29-2022 End: 04-29-2022 ambulatory Prem Goel Facility:[facility] Start: 04-29-2022 End: 04-29-2022 ambulatory DO Prem Goel Work Phone: [facility] Work Phone: Start: 04-29-2022 End: 04-29-2022 Patient encounter procedure DO Prem Goel Work Phone: [facility] Start: 03-06-2022 End: 03-07-[address] KHOA RAMOS . Facility:[facility] Start: 02-27-2022 End: 02-27-2022 ambulatory Prem Goel Other [facility] Other Start: 02-27-2022 Telephone encounter Prem Goel [facility] Start: 02-18-2022 End: 02-18-[address] KHOA RAMOS . Facility:[facility] Start: 01-28-2022 End: 01-28-2022 ambulatory Prem Goel Other [facility] Other Start: 01-28-2022 Office outpatient visit 15 minutes Prem Goel [facility] Start: 01-21-2022 End: 01-22-[address] KHOA RAMOS . Facility:[facility] Start: 12-02-2021 End: 12-02-2021 ambulatory Prem Goel Other [facility] Other Start: 12-02-2021 Telephone encounter Prem Kuns [facility] Start: 11-28-2021 End: 11-28-2021 ambulatory Prem Kuns Other [facility] Other Start: 11-28-2021 Telephone encounter Prem Kuns [facility] Start: 10-02-2021 End: 10-02-2021 ambulatory Prem Kuns Other [facility] Other Start: 10-02-2021 Telephone encounter Prem Kuns [facility] Start: 09-10-2021 End: 09-10-2021 ambulatory Prem Kuns Other [facility] Other Start: 09-10-2021 Telephone encounter Prem Kuns [facility] Start: 08-15-2021 End: 08-15-2021 ambulatory Prem Kuns Other [facility] Other Start: 08-15-2021 Office outpatient visit 25 minutes Prem Kuns [facility] Start: 08-12-2021 End: 08-12-2021 ambulatory Prem Kuns Other [facility] Other Start: 08-12-2021 Telephone encounter Prem Kuns [facility] Start: 06-13-2021 End: 06-13-2021 ambulatory Prem Kuns Other [facility] Other Start: 06-13-2021 Telephone encounter Prem Kuns [facility] Start: 04-30-2021 End: 04-30-2021 ambulatory Prem Kuns Other [facility] Other Start: 04-30-2021 Office outpatient visit 25 minutes Prem Kuns [facility] Start: 02-28-2021 End: 02-28-2021 ambulatory Prem Goel Other [facility] Other Start: 02-28-2021 Patient encounter procedure Prem Raymon [facility] Start: 08-18-2019 Annual wellness visit Prem Ku irina Other [facility] Other Plan of Treatment Date Care Activity Detail Author Glucose measurement estimated from glycated hemoglobin [facility] enter [facility] Immunizations Immunization Date Immunization Notes Care Provider Fa cility 06-13-2021 COVID-19 Vaccine Pfizer - Documentation Purposes Only Prem Raymon Other [facility] Other 07-19-2020 COVID-19 Vaccine Pfizer - Documentation Purposes Only Prem Raymon Other [facility] Other 06-29-2020 COVID-19 Vaccine Pfizer - Documentation Purposes Only Premsaloni Goel Other [facility] Other NEGATED: Highlighted row has not occurred!05-06-2022 influenza, seasonal, injectable Patient Objection Prem Goel Other [facility] Other NEGATED: Highlighted row has not occurred!05-06-2022 Prevnar 20 Patient Objection Prem Goel Other [facility] Other NEGATED: Highlighted row has not occurred!02-17-2019 influenza, seasonal, injectable Patient Objection Prem Goel Other [facility] Other NEGATED: Highlighted row has not occurred!04-07-2017 influenza, seasonal, injectable Patient Objection Premsaloni Cabezass Other [facility] Other Payers Date Payer Category Payer Self-pay [id number] 1957 Private Health Insurance [id number] 1937 Unknown [id number] 1937 Unknown [id number] 1937 Unknown [id number] [id number] 1937 Unknown [id number] [id number] 1937 Unknown [id number] [id number] 1937 Unknown [id number] [id number] 1937 Unknown [id number] [id number] 1937 Unknown [id number] 2.16.840.1.096859.3.579.2.593 1937 Unknown [id number] [id number] 1937 Unknown [id number] [id number] 1937 Unknown [id number] [id number] Medicare Medicare [id number] Unknown [facility] Health Claims [id number] Unknown [id number] [id number] Unknown [id number] [id number] Unknown [id number] [id number] Social History Date Type Detail Facility Unknown if ever smoked [facility] Other Sex Assigned At Sex Assigned At Bir th [facility] Other Start: 03-28-2020 End: 03-28-2020 Tobacco smoking status NHIS Never smoked tobacco (finding) [facility] Start: 1935 Sex Assigned At Female F [facility] Clinical Notes 12-21-2007 to 03-17-2023 Note [...] exercise regimen; we will continue to monitor. [facility] Other 08-25-2023 Evaluation note* Encounter Date Diagnosis Assessment Notes Treatment Notes Treatment Clinical Notes Jan, Hyperlipidemia (ICD-10 - E78.5) [facility] Other 06-07-2023 Evaluation note* Encounter Date Diagnosis Assessment Notes Treatment Notes Treatment Clinical Notes Nov, Bronchopneumonia (ICD-10 - J18.0) [facility] ER records reviewed from both 11/06 and [...] (ICD-10 - R59.0) Noted on imaging from [facility]. I do believe this is likely due to her being ill. She has never smoked. Discussed these findings with the and the patient if symptoms persist we may have pulmonary evaluation but at this time patient appears to be improving [facility] Other 04-27-2023 NoteCONSULTATION CONSULTATION DATE: 10/02/2022 TO: [...] our patients to inform us about any [id number] medications or herbal remedies/nutritional supplements/alternative remedies. 2. [...] treatment options with their primary care provider.[id number] Note CONSULTATION CONSULTATION DATE: 09/04/2022 TO: Dr. [...] mg pills, 1-2 at h.s. as tolerated.[facility] HospitalZdthufas03-18-1004 NoteCONSULTATION CONSULTATION DATE: 07/22/2022 CHIEF COMPLAINT: Right [...] her understand and would like to proceed,.[facility] 05-08-2022 NoteCONSULTATION CONSULTATION DATE: 05/08/2022 HISTORY [...] in three months' time unless otherwise indicated.[facility] [id number] NoteCONSULTATION CONSULTATION DATE: 03/06/2022 This is a [...] of care and all questions were answered.[facility] [id number] Evaluation note* Encounter Date Diagnosis Assessment Notes Treatment Notes Treatment Clinical Notes Feb, Hyperlipidemia (ICD-10 - E78.5) [facility] Other 08-23-2022 Evaluation note* Encounter Date Diagnosis [...] E78.5) Jan, Hyperglycemia (ICD-1 0 - R73.9) [facility] Other 08-16-2022 NoteCONSULTATION CONSULTATION DATE: 01/21/2022 CHIEF [...] her understand. CC: Dr. Raphael Escamilla D.O.[facility] [id number] NotePROCEDURE: [employer] Signa HDXT 1.5 Sagittal T1, T2, STIR [...] and signed by Ralph Figueroa on 10/25/[address] [facility] [place] [id number] Evaluation note* Encounter Date Diagnosis Assessment Notes [...] we will attempt to order an MRI. [facility] Other 01-06-2022 Evaluation note* Encounter Date Diagnosis Assessment Notes Treatment Notes Treatment Clinical Notes Jun, Hyperlipidemia (ICD-10 - E78.5) [facility] Other 11-23-2021 Evaluation note* Encounter Date Diagnosis [...] work-up i.e. CAT scan of her abdomen. [employer] Other 09-23-2021 Evaluation note* Encounter Date Diagnosis [...] monitor, a blood work order was provided. [employer] Other 07-15-2008 History general Narrative - Reported* Type Description Date Medical History Colonoscopy 12-21-07 Medical History Stress Test 01-18-[address] Scan Abdomen and Pelvis 06-07 Medical History Mammogram 2-11 Medical History Pap 1-10 Medical History 02/2013 [facility] Medical History 10/13/13-mammogram at [facility] Medical History 12/2015 mammogram Medical History 12/2016 Mammogram Medical History 07/2019 Mammogram Medical History Cardiolite 04/09/20 Surgical History wisdom teeth Hospitalization History child [employer] Other 07-15-2008 History general Narrative - Reported* Type Description Date Medical History Colonoscopy 12-21-07 Medical History Stress Test 01-18-[address] Scan Abdomen and Pelvis 06-07 Medical History Mammogram 2-11 Medical History Pap 1-10 Medical History 02/2013 [facility] Medical History 10/13/13-mammogram at [facility] Medical History 12/2015 mammogram Medical History 12/2016 Mammogram Medical History 07/2019 Mammogram Medical History Cardiolite 04/09/20 Medical History hearing aids Surgical History wisdom teeth Hospitalization History child [employer] Other Evaluation noteNo InformationNort [employer] Other evalumwofx noteNo assessment information available [facility] Work Phone: Summary Purpose Family History [...] section and content) DATE CREATED AUTHOR [facility]2020 [facility] DATE CREATED AUTHOR AUTHOR'S ORGANIZ ATION 10/27/2021 [facility] DATE CREATED AUTHOR AUTHOR'S ORGANIZ ATION 10/17/2022 [facility] DATE CREATED AUTHOR AUTHOR'S ORGANIZ ATION 03/15/2023 [facility] REASON FOR VISIT (unrecogniz ed section and content) refillMEDICARE WELLNESS SUBR efillsreview labs- hyperlipidemia managementRefillship/leg painhip and leg painClinicalRefill3 month Follow up right hp /legRefillsClinicalER FOLLOW UP JUAN C BRONCHITISRefills4 month Follow upRefills Care Teams (unrecognized [...] BE BASED ON THE PRIMARY CLINICAL RECORDS. [employer] provides no warranty or guarantee of the accuracy or completeness of information in this document.
--- NOTE | 2023-08-07 13:28 | XR_ITS ---
The [address] [address] Patient Name: ISAIAS WILKERSON MRN: [id number] date: 1935 Sex: F Assigned Patient Location: ER Current Patient Location: ER Accession/Order Number: [id number] Exam Date: 08/07/2023 13:51 Report Date: 08/07/2023 14:11 At the request of: JEANETTE MORENO Procedure: XR humerus LT PROCEDURE: XR humerus LT, XR shoulder LT min 2V COMPARISON: None. HISTORY: fall FINDINGS: BONES:Anterior glenohumeral dislocation. No acute fracture. The acromioclavicular joint is intact with borderline widening of the acromioclavicular distance measuring 7.2 mm . The humerus is intact SOFT TISSUES:Negative. No visible soft tissue swelling. EFFUSION:None visible. OTHER: Negative. XR/XR humerus LT IMPRESSION: Anterior humeral dislocation No acute fracture Electronically authenticated by: RAEANN RUSS Date: 08/07/2023 14:11
--- NOTE | 2023-08-07 13:28 | XR_ITS ---
The [address] [address] Patient Name: ISAIAS WILKERSON MRN: [id number] date: 1935 Sex: F Assigned Patient Location: ER Current Patient Location: ER Accession/Order Number: [id number] Exam Date: 08/07/2023 13:51 Report Date: 08/07/2023 14:11 At the request of: JEANETTE MORENO Procedure: XR shoulder LT min 2V PROCEDURE: XR humerus LT, XR shoulder LT min 2V COMPARISON: None. HISTORY: fall FINDINGS: BONES:Anterior glenohumeral dislocation. No acute fracture. The acromioclavicular joint is intact with borderline widening of the acromioclavicular distance measuring 7.2 mm . The humerus is intact SOFT TISSUES:Negative. No visible soft tissue swelling. EFFUSION:None visible. OTHER: Negative. XR/XR shoulder LT min 2V IMPRESSION: Anterior humeral dislocation No acute fracture Electronically authenticated by: RAEANN RUSS Date: 08/07/2023 14:11
--- NOTE | 2023-08-07 13:30 | ED.GENADUL1 ---
HPI - General Adult General Chief complaint: Extremity Injury, Upper Stated complaint: FALL Time Seen by Provider: 08/07/23 13:18 Source: patient and family Mode of arrival: Wheelchair Limitations: physical limitation History of Present Illness HPI narrative: Patient is a 87-year-old female who tripped and fell at a restaurant, having a FOOSH injury and a closed head injury. Patient was going into a restaurant, there was a rug that was not laying flat, it was raised up a few inches, patient tripped on it falling forward. There was a small table that was in front of the patient when she was falling. She hit her head against a table, she has a hematoma to the left frontal aspect. She is not on blood thinners. She then went to brace her fall with her arms, and then landed on her left arm in a flexed position at the elbow, causing immediate pain to the left shoulder. Patient is right-hand dominant. Patient does not currently have any headache or neck pain. When patient fell at the restaurant, she laid there for several minutes, then they were eventually able to get her up into 's car. drove to the ER. is very good historian. Patient has no back pain, no right arm pain, no chest wall pain. No rib pain, leg pain, no other acute complaints. Patient has severe pain with any range of motion of her left shoulder. All systems are negative except as noted/marked. All systems reviewed and otherwise negative. Nurses note and vital signs reviewed and patient is not hypoxic. General: The patient appears well and in no apparent distress. Patient is resting comfortably on cart. Patient is not toxic, lethargic, or listless Skin: Warm, dry, no pallor noted. There is no rash noted. No petechiae, purpura. Head: Normocephalic, patient has no midline or paracervical tenderness to palpation. Full range of motion of cervical spine with difficulty. Patient does have a hematoma to the left forehead, soft, minimal tenderness to palpation, approximately 3 x 2 cm, mild ecchymosis noted to the area. This is just above her medial aspect of her left eyebrow going vertical, 3 cm vertical, 2 cm wide. Eye: Normal conjunctiva, no drainage, EOMI. PERRL Ears, Nose, Mouth, and Throat: oral mucosa is moist. Nares patent. Mouth without vesicles. Cardiovascular: Regular Rate and Rhythm, no murmur, gallop, rub Respiratory: Patient is in no distress, no accessory muscle use, lungs are clear to auscultation, no wheezing, rales or rhonchi Back: non-tender, no CVA tenderness bilaterally to percussion. No CT LS midline pain GI: no tenderness to palpation, no masses appreciated. No rebound, guarding, or rigidity noted. No distention Musculoskeletal: Patient has full range of motion of all of the extremities except to the left upper extremity. Patient has full range of motion of her left wrist and elbow with minimal pain. Patient has severe pain with any flexion extension or attempted abduction of her left shoulder. Positive sulcus sign, possible left anterior humerus dislocation. Patient is neurovascular intact her left upper extremity. Othewise; no motor, sensory, or focal neurological deficits. Neurological: A&O x4, normal speech Psychiatric: Cooperative Related Data Home Medications Medication Instructions Recorded Confirmed aspirin 81 mg capsule 81 mg PO QDAY 11/06/22 08/07/23 ezetimibe 10 mg tablet 10 mg PO QAM 11/06/22 08/07/23 acetaminophen 650 mg 650 mg PO .QD 11/14/22 08/07/23 tablet,extended release (Arthritis Pain Relief (acetaminophen) ER) Previous Rx's Medication Instructions Recorded albuterol sulfate 90 mcg/actuation 2 inh inhalation Q4H PRN shortness 11/09/22 aerosol inhaler of breath or wheezing #8.5 grams hydrocodone 5 mg-acetaminophen 325 1 tab PO Q4H PRN pain #10 tabs 08/07/23 mg tablet ondansetron 4 mg disintegrating 4 mg PO Q4H PRN nausea and 08/07/23 tablet vomiting 3 days #6 tabs Allergies Allergy/AdvReac Type Severity Reaction Status Date / Time No Known Drug Allergies Allergy Verified 12/16/22 10:12 [facility] Medical History Low back pain ?M54.50 - Low back pain, unspecified (ICD-10) Hearing deficit ?H91.90 - Unspecified hearing loss, unspecified ear (ICD-10) High cholesterol ?E78.00 - Pure hypercholesterolemia, unspecified (ICD-10) Surgical History H/O breast biopsy ?Z98.890 - Other specified postprocedural states (ICD-10) Family History (Updated 08/07/23 @ 20:32 by Mary Lou Blandon) Brother Family history of CHF (congestive heart failure) Social History (Updated 08/07/23 @ 20:34 by Mary Lou Blandon) Within the past year, how often did you have a drink containing alcohol: monthly or less Within the past year, how many standard drinks containing alcohol did you have on a typical day: 1 or 2 Within the past year, how often did you have six or more drinks on one occasion: less than monthly Total score: 1 Score interpretation: A score less than 3 is consistent with normal alcohol consumption. 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 Known occupational exposures/hazards: No Highest level of school completed/degree received: high school graduate Do you want help with school or training: No Are you now , , , , never or living with a partner: In a typical week, how many times do you talk on the telephone with family, friends, or neighbors: 3 or more times per week How often do you get together with friends or relatives: 3 or more times per week How often do you attend advent or zoroastrian services: 4 or more times per year Do you belong to any clubs or organizations such as advent groups unions, fraternal or athletic groups, or school groups: no Total score: 3 Score interpretation: A score of greater than or equal to 2 indicates the lowest level of social isolation. Little interest or pleasure in doing things: several days Feeling down, depressed, or hopeless: several days Feel stressed/tense/nervous/anxious/difficulty sleeping: only a little Due to disability, difficulty making decisions: No Do you think of yourself as: straight/heterosexual Gender Identity: female Exam Constitutional Vital Signs, click to edit/add: Last Vital Signs Temp 97.3 F L 08/07/23 19:58 Pulse 86 08/07/23 19:58 Resp 16 08/07/23 19:58 BP 112/67 08/07/23 19:58 Pulse Ox 92 L 08/07/23 19:58 O2 Del Method Room Air 08/07/23 20:15 O2 Flow Rate 0 08/07/23 16:24 Course Vital Signs Vital signs: Vital Signs Temperature 97.8 F 08/07/23 13:09 Pulse Rate 75 08/07/23 13:09 Respiratory Rate 20 08/07/23 13:09 Blood Pressure 172/92 H 08/07/23 13:09 Pulse Oximetry 94 L 08/07/23 13:09 Oxygen Delivery Method Room Air 08/07/23 13:09 Temperature 97.3 F L 08/07/23 19:58 Pulse Rate 86 08/07/23 19:58 Respiratory Rate 16 08/07/23 19:58 Blood Pressure 112/67 08/07/23 19:58 Pulse Oximetry 92 L 08/07/23 19:58 Oxygen Delivery Method Room Air 08/07/23 20:15 Oxygen Delivery Flow Rate 0 08/07/23 16:24 Medical Decision Making MDM Narrative Medical decision making narrative: Patient was given ice, morphine, Zofran. It sounds like patient had 2 Tylenol prior to arrival, that is not confirmed, patient took 2 white pills from a individual at the restaurant and was told it was for pain. 1345 patient is developing pain to her left knee. Patient does have a hematoma just distal to the left patella. Patient is now having mild tenderness to the left knee with flexion and extension. No pain with varus or valgus stress. Patient did not have any pain several minutes ago with range of motion of bilateral hips, knees, ankles or feet. Patient now is stating that her left knee is starting to hurt. 1630 patient's pain is much better. Patient is in a sling. Patient had successful reduction of left anterior shoulder dislocation. Patient was initially given a dose of 4 mg of morphine and 4 mg of Zofran when she arrived along with ice. Patient was given a additional 4 mg of morphine and 2 mg of Valium IV prior to reduction. Patient was given 10 mg of etomidate IV for reduction. Patient in no respiratory or any other complications. See procedure note. No complications occurred. Please see procedure notes. Patient will follow-up with Dr. Ortega at 10 AM on August 09. Education using ice to her forehead, left knee, left shoulder were discussed. Close head injury instructions were discussed as well. Patient will follow-up with PCP as needed. No questions at discharge. Education on using either Tylenol or anti-inflammatories, or using [place] instead of Tylenol for severe pain was discussed. Patient understands not to take Tylenol with [place]. Procedure note. Conscious sedation. The patient was placed on IV, O2, monitor, and pulse ox. Respiratory therapy was at bedside. Risk and benefits of procedure were gone over, paperwork was signed. Patient is aware of the risk of , disability, possible new fracture, neurovascular compromise, bleeding, infection, pain, unable to reduce the dislocation, unforeseen complications, respiratory difficulty or distress, airway compromise. Patient signed consent form. Patient was premedicated with 4 mg of morphine IV and 2 mg of Valium IV. Patient was then given 10 mg of etomidate IV. Patient was monitored for 1 hour after successful reduction. Procedure note: Left sling was placed to the left upper extremity. Splint was assisted with . the patient was neurovascularly intact before and after the splint was placed. the affected bones/injured area had proper alignment in a splint. Education on splint care at home was given at bedside. Patient and family have no questions at discharge. 1830 We attempted to get patient up several times for discharge. Patient is weak, nauseous, she is not tolerating commands, able to stand, slightly disoriented. Patient has no headache, no neck pain. Mild nausea. Zofran was given. We will do a CT of the head, and I will admit patient to the hospital overnight for observation secondary to head injury and possible sedation still from medication given to help with reduction of left anterior shoulder dislocation. 1930 CT of the head shows no acute findings. Patient and were happy the patient is being admitted overnight for observation. Patient has an appointment at 10 AM on Thursday [address] Dr. Ortega Critical care time 55 minutes exclusive from separate billable procedures that were performed. The following was considered in the determination of critical care but not limited to the level of medical decision making, intensive cardiac and/or respiratory monitoring, frequent vital sign monitoring, evaluation of laboratory studies, evaluation of radiographic studies, oxygen monitoring, and constant monitoring and speaking to family at bedside Lab Data Labs: Lab Results 08/07/23 Range/Units 13:20 WBC 7.5 (4.0-11.0) 10^3/uL RBC 5.19 (4.20-5.40) 10^6/uL Hgb 15.4 (12.0-16.0) g/dL Hct 48.4 H (36.0-48.0) % MCV 93.3 (81.0-99.0) fL MCH 29.7 (26.7-34.0) pg MCHC 31.8 (29.9-35.2) g/dL RDW 12.6 (11.0-15.0) % Plt Count 238 (150-450) 10^3/uL MPV 12.5 (9.5-13.5) fL Neut % (Auto) 43.9 (43.0-75.0) % Lymph % (Auto) 45.6 (20.5-60.0) % Williamson % (Auto) 8.6 (1.7-12.0) % Eos % (Auto) 1.1 (0.9-7.0) % Baso % (Auto) 0.5 (0.2-2.0) % Neut # (Auto) 3.3 (1.4-6.5) 10^3/uL Lymph # (Auto) 3.4 (1.2-3.8) 10^3/uL Williamson # (Auto) 0.7 (0.3-0.8) 10^3/uL Eos # (Auto) 0.1 (0.0-0.7) 10^3/uL Baso # (Auto) 0.0 (0.0-0.1) 10^3/uL Abs Immat Gran (auto) 0.02 (0.00-0.03) 10^3/uL Imm/Tot Granulo (auto) 0.3 (0.0-0.5) % Sodium 142 (136-145) mmol/L Potassium 3.9 (3.5-5.1) mmol/L Chloride 106 (98-107) mmol/L Carbon Dioxide 28.0 (21.0-32.0) mmol/L Anion Gap 11.9 BUN 20.0 H (7.0-18.0) mg/dL Creatinine 0.80 (0.55-1.02) mg/dL Est GFR ( Amer) >60 (>=60) Est GFR (Non-Af Amer) >60 (>=60) BUN/Creatinine Ratio 25.0 Glucose 121 H (74-106) mg/dL Calcium 9.4 (8.5-10.1) mg/dL Total Bilirubin 0.4 (0.2-1.0) mg/dL AST 20 (15-37) U/L ALT 23 (14-59) U/L Alkaline Phosphatase 118 H (46-116) U/L Total Protein 7.2 (6.4-8.2) g/dL Albumin 3.4 (3.4-5.0) g/dL Globulin 3.8 g/dL Albumin/Globulin Ratio 0.9 Imaging Data Chest x-ray: Radiologist's impression: ITS Impressions Humerus X-Ray 08/07/23 13:28 IMPRESSION: Anterior humeral dislocation No acute fracture Electronically authenticated by: RAEANN RUSS Date: 08/07/2023 14:11 Shoulder X-Ray 08/07/23 13:28 IMPRESSION: Anterior humeral dislocation No acute fracture Electronically authenticated by: RAEANN RUSS Date: 08/07/2023 14:11 Knee X-Ray 08/07/23 13:43 IMPRESSION: Soft tissue swelling, no acute fracture Electronically authenticated by: RAEANN RUSS Date: 08/07/2023 14:08 Shoulder X-Ray 08/07/23 15:21 IMPRESSION: Reduction of glenohumeral dislocation acromioclavicular joint strain Electronically authenticated by: RAEANN RUSS Date: 08/07/2023 15:[address] 08/07/23 18:20 IMPRESSION: No acute intracranial abnormality noted. Electronically authenticated by: MECHE ANTUNEZ Date: 08/07/2023 19:59 Discharge Plan Discharge Chief Complaint: Extremity Injury, Upper Clinical Impression: Head injury due to trauma, Anterior dislocation of left shoulder, Fall, Contusion of knee, left Patient Disposition: Admitted as Observation Time of Disposition Decision: 16:09 Condition: Fair Discharge Date/Time: 08/07/23 19:24
[2023-08-07] MEDS: MORPHINE SULFATE 4 MG/ML VIAL IV ×2 (13:40→15:21)
[2023-08-07] MEDS: ONDANSETRON PF 4 MG/2 ML VIAL IV ×2 (13:40→17:08)
--- NOTE | 2023-08-07 13:43 | XR_ITS ---
The [address] [address] Patient Name: ISAIAS WILKERSON MRN: [id number] date: 1935 Sex: F Assigned Patient Location: ER Current Patient Location: ER Accession/Order Number: [id number] Exam Date: 08/07/2023 13:51 Report Date: 08/07/2023 14:08 At the request of: JEANETTE MORENO Procedure: XR knee LT 3V PROCEDURE: XR knee LT 3V COMPARISON: None. HISTORY: pain FINDINGS: BONES:No acute fracture or dislocation. 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 Mild narrowing of the medial joint space. Enthesopathic spurring of the patella at the quadriceps insertion SOFT TISSUES:Lateral and anterior soft tissue swelling EFFUSION:None visible. OTHER: Negative. XR/XR knee LT 3V IMPRESSION: Soft tissue swelling, no acute fracture Electronically authenticated by: RAEANN RUSS Date: 08/07/2023 14:08
[2023-08-07] MEDS: DIAZEPAM 10 MG/2 ML SYRINGE 2 MG IV (15:21)
--- NOTE | 2023-08-07 15:21 | XR_ITS ---
The [address] [address] Patient Name: ISAIAS WILKERSON MRN: [id number] date: 1935 Sex: F Assigned Patient Location: ER Current Patient Location: ER Accession/Order Number: [id number] Exam Date: 08/07/2023 15:30 Report Date: 08/07/2023 15:57 At the request of: JEANETTE MORENO Procedure: XR shoulder LT min 2V PROCEDURE: XR shoulder LT min 2V COMPARISON: Same day HISTORY: reduction FINDINGS: BONES:Interval reduction of glenohumeral joint dislocation. No definite fracture. Widening of the coracoclavicular distance measuring 10 mm and acromioclavicular joint distance measuring 9 mm suggesting grade 2 strain SOFT TISSUES:Negative. No visible soft tissue swelling. EFFUSION:None visible. OTHER: Negative. XR/XR shoulder LT min 2V IMPRESSION: Reduction of glenohumeral dislocation acromioclavicular joint strain Electronically authenticated by: RAEANN RUSS Date: 08/07/2023 15:57
[2023-08-07] MEDS: 0.9 % SODIUM CHLORIDE 1,000 ML 999 ML IV (15:25)
[2023-08-07] MEDS: ETOMIDATE 20 MG/10 ML VIAL IVP (15:32)
[2023-08-07] MEDS: HYDRALAZINE HCL 20 MG/ML VIAL 10 MG IVP (16:21)
--- NOTE | 2023-08-07 18:20 | CT_ITS ---
The [address] [address] Patient Name: ISAIAS WILKERSON MRN: [id number] date: 1935 Sex: F Assigned Patient Location: ER Current Patient Location: MS Accession/Order Number: [id number] Exam Date: 08/07/2023 18:48 Report Date: 08/07/2023 19:59 At the request of: JEANETTE MORENO Procedure: CT head/brain wo con EXAM: CT head/brain wo con CLINICAL INDICATION: chi TECHNIQUE: Unenhanced computerized tomography of the head was performed. Automated dose reduction technique was employed. COMPARISON: None. FINDINGS: The ventricles are normal in size, configuration, and position for age. There is no intra- or extra-axial mass, hemorrhage, or fluid collection. 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 No areas of abnormal mass effect or attenuation are otherwise noted. There is mild subcortical, deep, and periventricular white matter low-attenuation, compatible with changes of chronic small vessel ischemic disease. Visualized paranasal sinuses are free of mucosal disease. No depressed calvarial fracture. Mild left frontal scalp swelling. CT/CT head/brain wo con IMPRESSION: No acute intracranial abnormality noted. Electronically authenticated by: MECHE ANTUNEZ Date: 08/07/2023 19:59
--- NOTE | 2023-08-07 18:20 | ECG_ITS ---
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
[2023-08-07 18:45] LABS: Basophils Percent Auto 0.5 % (0.2-2.0); Eosinophils Absolute Auto 0.1 10^3/uL (0.0-0.7); Eosinophils Percent Auto 1.1 % (0.9-7.0); Hematocrit 48.4 % (36.0-48.0); Hemoglobin 15.4 g/dL (12.0-16.0); Immature Granulocytes Abs Auto 0.02 10^3/uL (0.00-0.03); Immature Granulocytes Pct Auto 0.3 % (0.0-0.5); Lymphocytes Absolute Auto 3.4 10^3/uL (1.2-3.8); Lymphocytes Percent Auto 45.6 % (20.5-60.0); Mean Corpuscular HGB Conc 31.8 g/dL (29.9-35.2); Mean Corpuscular Hemoglobin 29.7 pg (26.7-34.0); Mean Corpuscular Volume 93.3 fL (81.0-99.0); Mean Platelet Volume 12.5 fL (9.5-13.5); Monocytes Absolute Auto 0.7 10^3/uL (0.3-0.8); Monocytes Percent Auto 8.6 % (1.7-12.0); Neutrophils Absolute Auto 3.3 10^3/uL (1.4-6.5); Neutrophils Percent Auto 43.9 % (43.0-75.0); Platelet Count 238 10^3/uL (150-450); Red Blood Count 5.19 10^6/uL (4.20-5.40); Red Cell Distribution Width 12.6 % (11.0-15.0); White Blood Count 7.5 10^3/uL (4.0-11.0)
[2023-08-07 19:00] LABS: Alanine Aminotransferase 23 U/L (14-59); Albumin Globulin Ratio 0.9; Albumin Level 3.4 g/dL (3.4-5.0); Alkaline Phosphatase 118 U/L (46-116); Anion Gap 11.9; Aspartate Amino Transferase 20 U/L (15-37); Bilirubin Total 0.4 mg/dL (0.2-1.0); Calcium 9.4 mg/dL (8.5-10.1); Chloride 106 mmol/L (98-107); Estimated GFR (African America >60 (>=60); Estimated GFR (Non-African Ame >60 (>=60); Globulin 3.8 g/dL; Glucose 121 mg/dL (74-106); Potassium 3.9 mmol/L (3.5-5.1); Sodium 142 mmol/L (136-145); Total Protein 7.2 g/dL (6.4-8.2)
--- OUTSIDE RECORDS SUMMARY | 2023-08-07 19:30 | XMS_ITS | CCD ---
Author Name Unknown Address [address] [place] [address] Organization [facility] Care Team Providers Care Flour Mixer Helper Name Role Phone Prem Goel Unavailable DO Prem Goel Primary Care Provider DO Prem Goel Attending Provider [phone] LAKSHMIPATHY ., NARENDRANATH Admitting Eda vailable RAYMON, [...] Care Provider Kuns, DO Prem Attending Provider Kuns, Prem [...] nee ded Orally every 8 hrs Active [id number] actuat albuterol 0.09 mg/actuat metered dose [...] kris 03-12-2023 Glucose [Mass/Vol] 126 mg/dL Normal [facility] Comment on above: Order Comment: Reaso n for Exam Hyperlipidemia Result Comment: PERF ORMED BY: [place] [address] PATHOLOGIST MERCHANDISE DIRECTOR BEV TALBERT M.D. Performed By: #### A 1C WT eA, LIPID, TSH3, CBC, CMP #### [address] HbA1c (Bld) [Mass fraction] 6.0 % High 4.3-5.6 [facility] Comment on above: Order Comment: Reaso n for Exam Hyperlipidemia Result Comment: Incr eased risk for diabetes: 5.7 - 6.4 diabetes: >6.4 glycemic control for adults with diabetes: <7.0 Performed By: #### A 1C WTH eA, LIPID, TSH3, CBC, CMP #### [facility] [address] Alanine aminotransferase [En zymatic activity/volume] in Serum or PlasmaOrdered By: Prem Goel on 03-12-2023 ALT [Catalytic activity/Vol] 11 U/L 7-52 [facility] Albumin [Mass/volume] in Ser um or Plasma by Bromocresol green (BCG) dye binding methoOrdered By: Prem Goel on 03-12-2023 Albumin BCG dye [Mass/Vol] 3.9 g/dL 3.5-5.7 [facility] Alkaline phosphatase [Enzyma tic activity/volume] in Serum or PlasmaOrdered By: Prem Goel on 03-12-2023 ALP [Catalytic activity/Vol] 89 U/L 34-104 [facility] Aspartate aminotransferase [ Enzymatic activity/volume] in Serum or PlasmaOrdered By: Prem Goel on 03-12-2023 AST [Catalytic activity/Vol] 15 U/L 13-39 [facility] Basophils Auto (Bld) [#/Vol] Ordered By: Prem Goel on 03-12-2023 Basophils (Bld) [#/Vol] 0.0 10*3/uL 0.0-0.2 [facility] Basophils/100 WBC Auto (Bld) Ordered By: Prem Goel on 03-12-2023 Basophils/100 WBC (Bld) 0.7 % . [facility] Bilirubin.total [Mass/volume ] in Serum or PlasmaOrdered By: Prem Goel on 03-12-2023 Bilirubin [Mass/Vol] 0.6 mg/dL 0.3-1.0 [facility] Calcium [Mass/volume] in Ser um or PlasmaOrdered By: Prem Goel on 03-12-2023 Calcium [Mass/Vol] 9.4 mg/dL 8.6-10.3 [facility] Carbon dioxide, total [Moles /volume] in Serum or PlasmaOrdered By: Prem Goel on 03-12-2023 CO2 [Moles/Vol] 28.2 mmol/L 21.0-31.0 [facility] Chloride [Moles/volume] in S dede or PlasmaOrdered By: Prem Goel on 03-12-2023 Chloride [Moles/Vol] 107 mmol/L 98-107 [facility] Cholesterol [Mass/volume] in Serum or PlasmaOrdered By: Prem Goel on 03-12-2023 Cholesterol [Mass/Vol] 228 mg/dL 140-200 [facility] Comment on above: Chol less than 200 m g/dl low riskChol 201-239 mg/dl borderline riskChol 240 mg/dl and greater high risk Cholesterol in LDL Calc [Mas s/Vol]Ordered By: Prem Goel on 03-12-2023 Cholesterol in LDL [Mass/Vol] 146 mg/dL 0-100 [facility] Comment on above: LDL ATP III CLASSIFI CATIONLDL less than 100 mg/dL OptimalLDL 100-129 mg/dL Near or above optimalLDL 130-159 mg/dL Borderline highLDL 160-189 mg/dL HighLDL greater than 189 mg/dL Very high Cholesterol in VLDL Calc [Ma ss/Vol]Ordered By: Prem Goel on 03-12-2023 Cholesterol in VLDL [Mass/Vol] 15 mg/dL [facility] Complete Blood Count Auto Di ffon 03-12-2023 Basophils (Bld) [#/Vol] 0.0 10*3/uL Normal 0.0-0.2 [facility] Comment on above: Order Comment: Reaso n for Exam Hyperlipidemia Result Comment: PERF ORMED BY: [place] [address] PATHOLOGIST MERCHANDISE DIRECTOR BEV TALBERT M.D. Performed By: #### C BC #### [facility] [address] [place] [address] [place] Basophils/100 WBC (Bld) 0.7 % Normal . [facility] Comment on above: Order Comment: Reaso n for Exam Hyperlipidemia Performed By: #### C BC #### [facility] [address] [place] [address] [place] Eosinophils (Bld) [#/Vol] 0.1 10*3/uL Normal 0.0-0.45 [facility] Comment on above: Order Comment: Reaso n for Exam Hyperlipidemia Performed By: #### C BC #### [place] [address] [place] Eosinophils/100 WBC (Bld) 2.3 % Normal . [facility] Comment on above: Order Comment: Reaso n for Exam Hyperlipidemia Performed By: #### C BC #### [address] Erythrocyte distribution width (RBC) [Ratio] 12.9 % Normal 11.9-15.3 [facility] Comment on above: Order Comment: Reaso n for Exam Hyperlipidemia Performed By: #### C BC #### [address] Hematocrit (Bld) [Volume fraction] 45.2 % Normal 34.0-46.4 [facility] Comment on above: Order Comment: Reaso n for Exam Hyperlipidemia Performed By: #### C BC #### [address] Hemoglobin (Bld) [Mass/Vol] 14.9 g/dL Normal 11.8-15.4 [facility] Comment on above: Order Comment: Reaso n for Exam Hyperlipidemia Performed By: #### C BC #### [address] Lymphocytes (Bld) [#/Vol] 2.6 10*3/uL Normal 1.00-4.8 [facility] Comment on above: Order Comment: Reaso n for Exam Hyperlipidemia Performed By: #### C BC #### [address] Lymphocytes/100 WBC (Bld) 42.3 % Normal . [facility] Comment on above: Order Comment: Reaso n for Exam Hyperlipidemia Performed By: #### C BC #### [address] MCH (RBC) [Entitic mass] 29.8 pg Normal 24.7-34.3 [facility] Comment on above: Order Comment: Reaso n for Exam Hyperlipidemia Performed By: #### C BC #### [address] [place] [address] [place] MCV (RBC) [Entitic vol] 90.5 fL Normal 80-100 [facility] Comment on above: Order Comment: Reaso n for Exam Hyperlipidemia Performed By: #### C BC #### [facility] [address] Mean Corpuscular HGB Conc 33.0 g/dL Normal 32.0-35.0 [facility] Comment on above: Order Comment: Reaso n for Exam Hyperlipidemia Performed By: #### C BC #### [facility] [address] Monocytes (Bld) [#/Vol] 0.6 10*3/uL Normal 0.0-0.8 [facility] Comment on above: Order Comment: Reaso n for Exam Hyperlipidemia Performed By: #### C BC #### [address] Monocytes/100 WBC (Bld) 9.1 % Normal . [facility] Comment on above: Order Comment: Reaso n for Exam Hyperlipidemia Performed By: #### C BC #### [place] [address] [place] Neutrophils (Bld) [#/Vol] 2.8 10*3/uL Normal 1.8-7.7 [facility] Comment on above: Order Comment: Reaso n for Exam Hyperlipidemia Performed By: #### C BC #### [place] [address] [place] Neutrophils/100 WBC (Bld) 45.6 % Normal . [facility] Comment on above: Order Comment: Reaso n for Exam Hyperlipidemia Performed By: #### C BC #### [facility] [address] [place] [address] [place] NRBC% 0.1 /100{WBC} Normal 0-0.5 [facility] Comment on above: Order Comment: Reaso n for Exam Hyperlipidemia Performed By: #### C BC #### [address] Platelet mean volume (Bld) [Entitic vol] 10.2 fL Normal 6.3-10.7 [facility] Comment on above: Order Comment: Reaso n for Exam Hyperlipidemia Performed By: #### C BC #### [facility] [address] Platelets (Bld) [#/Vol] 201 10*3/uL Normal 150-450 [facility] Comment on above: Order Comment: Reaso n for Exam Hyperlipidemia Performed By: #### C BC #### [facility] [address] RBC (Bld) [#/Vol] 4.99 10*6/uL Normal 3.60-5.00 [facility] Comment on above: Order Comment: Reaso n for Exam Hyperlipidemia Performed By: #### C BC #### [address] WBC (Bld) [#/Vol] 6.1 10*3/uL Normal 3.8-11.6 [facility] Comment on above: Order Comment: Reaso n for Exam Hyperlipidemia Performed By: #### C BC #### [address] Comprehensive Metabolic Pane [place] 03-12-2023 Albumin [Mass/Vol] 3.9 g/dL Normal 3.5-5.7 [facility] Comment on above: Order Comment: Reaso n for Exam Hyperlipidemia Performed By: #### A 1C WTH eA, LIPID, TSH3, CBC, CMP #### [facility] [address] Albumin/Globulin [Mass ratio] 1.8 {ratio} Normal [facility] Comment on above: Order Comment: Reaso n for Exam Hyperlipidemia Performed By: #### A 1C WTH eA, LIPID, TSH3, CBC, CMP #### [facility] [address] ALP [Catalytic activity/Vol] 89 U/L Normal 34-104 [facility] Comment on above: Order Comment: Reaso n for Exam Hyperlipidemia Performed By: #### A 1C WTH eA, LIPID, TSH3, CBC, CMP #### [facility] [address] [place] [address] [place] ALT [Catalytic activity/Vol] 11 U/L Normal 7-52 [facility] Comment on above: Order Comment: Reaso n for Exam Hyperlipidemia Performed By: #### A 1C WTH eA, LIPID, TSH3, CBC, CMP #### [facility] [address] Anion gap [Moles/Vol] 10.1 mmol/L Normal 6.0-15.0 [facility] Comment on above: Order Comment: Reaso n for Exam Hyperlipidemia Performed By: #### A 1C WTH eA, LIPID, TSH3, CBC, CMP #### [facility] [address] AST [Catalytic activity/Vol] 15 U/L Normal 13-39 [facility] Comment on above: Order Comment: Reaso n for Exam Hyperlipidemia Performed By: #### A 1C WTH eA, LIPID, TSH3, CBC, CMP #### [facility] [address] [place] [address] [place] Bilirubin [Mass/Vol] 0.6 mg/dL Normal 0.3-1.0 [facility] Comment on above: Order Comment: Reaso n for Exam Hyperlipidemia Performed By: #### A 1C WTH eA, LIPID, TSH3, CBC, CMP #### [facility] [address] [place] [address] [place] Calcium [Mass/Vol] 9.4 mg/dL Normal 8.6-10.3 [facility] Comment on above: Order Comment: Reaso n for Exam Hyperlipidemia Performed By: #### A 1C WTH eA, LIPID, TSH3, CBC, CMP #### [facility] [address] [place] [address] [place] Chloride [Moles/Vol] 107 mmol/L Normal 98-107 [facility] Comment on above: Order Comment: Reaso n for Exam Hyperlipidemia Performed By: #### A 1C WTH eA, LIPID, TSH3, CBC, CMP #### [facility] [address] [place] [address] [place] CO2 [Moles/Vol] 28.2 mmol/L Normal 21.0-31.0 [facility] Comment on above: Order Comment: Reaso n for Exam Hyperlipidemia Performed By: #### A 1C WTH eA, LIPID, TSH3, CBC, CMP #### [facility] [address] Creatinine [Mass/Vol] 0.77 mg/dL Normal 0.60-1.20 [facility] Comment on above: Order Comment: Reaso n for Exam Hyperlipidemia Performed By: #### A 1C WTH eA, LIPID, TSH3, CBC, CMP #### [facility] [address] GFR/1.73 sq M.predicted MDRD (S/P/Bld) [Vol rate/Area] mL/min/{1.73_m2} Normal [facility] Comment on above: Order Comment: Reaso n for Exam Hyperlipidemia Performed By: #### A 1C WTH eA, LIPID, TSH3, CBC, CMP #### [facility] [address] Globulin (S) [Mass/Vol] 2.2 g/dL Normal [facility] Comment on above: Order Comment: Reaso n for Exam Hyperlipidemia Performed By: #### A 1C WTH eA, LIPID, TSH3, CBC, CMP #### [facility] [address] Glucose [Mass/Vol] 96 mg/dL Normal 70-100 [facility] Comment on above: Order Comment: Reaso n for Exam Hyperlipidemia Result Comment: [place] Glucose Reference Range is dependent on time and content of last meal. Glucose of more than 200 mg/dL in a nonstressed, ambulatory subject supports the diagnosis of Diabetes Mellitus. ADA recommended reference range Performed By: #### A 1C WTH eA, LIPID, TSH3, CBC, CMP #### [facility] [address] Potassium [Moles/Vol] 4.3 mmol/L Normal 3.5-5.1 [facility] Comment on above: Order Comment: Reaso n for Exam Hyperlipidemia Performed By: #### A 1C WTH eA, LIPID, TSH3, CBC, CMP #### [facility] [address] [place] [address] [place] Protein [Mass/Vol] 6.1 g/dL Low 6.4-8.9 [facility] Comment on above: Order Comment: Reaso n for Exam Hyperlipidemia Performed By: #### A 1C WTH eA, LIPID, TSH3, CBC, CMP #### [facility] [address] Sodium [Moles/Vol] 141 mmol/L Normal 136-145 [facility] Comment on above: Order Comment: Reaso n for Exam Hyperlipidemia Performed By: #### A 1C WT eA, LIPID, TSH3, CBC, CMP #### [facility] [address] Urea nitrogen [Mass/Vol] 18 mg/dL Normal 7-25 [facility] Comment on above: Order Comment: Reaso n for Exam Hyperlipidemia Performed By: #### A 1C WT eA, LIPID, TSH3, CBC, CMP #### [facility] [address] Creatinine [Mass/volume] in Serum or PlasmaOrdered By: Prem Goel on 03-12-2023 Creatinine [Mass/Vol] 0.77 mg/dL 0.60-1.20 [facility] Eosinophils Auto (Bld) [#/Vo l]Ordered By: Prem Goel on 03-12-2023 Eosinophils (Bld) [#/Vol] 0.1 10*3/uL 0.0-0.45 [facility] Eosinophils/100 WBC Auto (Bl d)Ordered By: Prem Goel on 03-12-2023 Eosinophils/100 WBC (Bld) 2.3 % . [facility] Erythrocyte distribution wid th Auto (RBC) [Ratio]Ordered By: Prem Goel on 03-12-2023 Erythrocyte distribution width (RBC) [Ratio] 12.9 % 11.9-15.3 [facility] Globulin Calc (S) [Mass/Vol] Ordered By: Prem Goel on 03-12-2023 Globulin (S) [Mass/Vol] 2.2 g/dL [facility] Glucose [Mass/volume] in Ser um or PlasmaOrdered By: Prem Goel on 03-12-2023 Glucose [Mass/Vol] 96 mg/dL 70-100 [facility] Comment on above: ADA recommended refe rence rangeRandom Glucose Reference Range is dependent on time and content of last meal. Glucose of more than 200 mg/dL in a nonstressed, ambulatory subject supports the diagnosis of Diabetes Mellitus. Hematocrit Auto (Bld) [Volum e fraction]Ordered By: Prem Goel on 03-12-2023 Hematocrit (Bld) [Volume fraction] 45.2 % 34.0-46.4 [facility] Hemoglobin [Mass/volume] in BloodOrdered By: Prem Goel on 03-12-2023 Hemoglobin (Bld) [Mass/Vol] 14.9 g/dL 11.8-15.4 [facility] Leukocytes [#/volume] correc guillermina for nucleated erythrocytes in Blood by Automated counOrdered By: Prem Goel on 03-12-2023 WBC corrected for nucl RBC Auto (Bld) [#/Vol] 6.1 10*3/uL 3.8-11.6 [facility] Lipid Panelon 03-12-2023 Cholesterol [Mass/Vol] 228 mg/dL High 140-200 [facility] Comment on above: Order Comment: Reaso n for Exam Hyperlipidemia Result Comment: Chol less than 200 mg/dl low risk Chol 201-239 mg/dl borderline risk Chol 240 mg/dl and greater high risk Performed By: #### A 1C WTH eA, LIPID, TSH3, CBC, CMP #### [facility] [address] [place] [address] [place] Cholesterol in HDL [Mass/Vol] 66 mg/dL Normal 23-92 [facility] Comment on above: Order Comment: Reaso n for Exam Hyperlipidemia Result Comment: HDL CHOL ATP-III CLASSIFICATION Cardiovascular Risk HDL > or equal to 60 mg/dL LOW HDL < 40 mg/dL HIGH Performed By: #### A 1C WTH eA, LIPID, TSH3, CBC, CMP #### [facility] [address] [place] [address] [place] Cholesterol.total/Araceli sterol in HDL [Mass ratio] 3.5 {ratio} Normal <5.0 [facility] Comment on above: Order Comment: Reaso n for Exam Hyperlipidemia Performed By: #### A 1C WT eA, LIPID, TSH3, CBC, CMP #### [facility] [address] LDL Cholesterol,Calculated 146 mg/dL High 0-100 [facility] Comment on above: Order Comment: Reaso n for Exam Hyperlipidemia Result Comment: LDL ATP III CLASSIFICATION LDL less than 100 mg/dL Optimal LDL 100-129 mg/dL Near or above optimal LDL 130-159 mg/dL Borderline high LDL 160-189 mg/dL High LDL greater than 189 mg/dL Very high Performed By: #### A 1C WT eA, LIPID, TSH3, CBC, CMP #### [facility] [address] Triglyceride w/Reflex 78 mg/dL Normal 0-149 [facility] Comment on above: Order Comment: [...] WT eA, LIPID, TSH3, CBC, CMP #### [facility] [address] VLDL CHOLESTEROL 15 mg/dL Normal [facility] Comment on above: Order Comment: Reaso n for Exam Hyperlipidemia Performed By: #### A 1C WT eA, LIPID, TSH3, CBC, CMP #### [facility] [address] [place] [address] [place] Lymphocytes Auto (Bld) [#/Vo l]Ordered By: Prem Goel on 03-12-2023 Lymphocytes (Bld) [#/Vol] 2.6 10*3/uL 1.00-4.8 [facility] Lymphocytes/100 WBC Auto (Bl d)Ordered By: Prem Goel on 03-12-2023 Lymphocytes/100 WBC (Bld) 42.3 % . [facility] MCH Auto (RBC) [Entitic mass ]Ordered By: Prem Goel on 03-12-2023 MCH (RBC) [Entitic mass] 29.8 pg 24.7-34.3 [facility] MCHC Auto (RBC) [Mass/Vol]Or dered By: Prem Goel on 03-12-2023 MCHC (RBC) [Mass/Vol] 33.0 g/dL 32.0-35.0 [facility] MCV Auto (RBC) [Entitic vol] Ordered By: Prem Goel on 03-12-2023 MCV (RBC) [Entitic vol] 90.5 fL 80-100 [facility] Monocytes Auto (Bld) [#/Vol] Ordered By: Prem Goel on 03-12-2023 Monocytes (Bld) [#/Vol] 0.6 10*3/uL 0.0-0.8 [facility] Monocytes/100 WBC Auto (Bld) Ordered By: Prem Goel on 03-12-2023 Monocytes/100 WBC (Bld) 9.1 % . [facility] Neutrophils Auto (Bld) [#/Vo l]Ordered By: Prem Goel on 03-12-2023 Neutrophils (Bld) [#/Vol] 2.8 10*3/uL 1.8-7.7 [facility] Neutrophils/100 WBC Auto (Bl d)Ordered By: Prem Goel on 03-12-2023 Neutrophils/100 WBC (Bld) 45.6 % . [facility] No Panel InformationOrdered By: Prem Goel on 03-12-2023 Estimated GFR (CKD-EPI) > 60.0 mL/Min [facility] Creatinine Clearance (Chem N/A [facility] Nucleated erythrocytes [Pres ence] in Blood by Automated countOrdered By: Prem Goel on 03-12-2023 Nucleated RBC Auto Ql (Bld) 0.1 /100{WBC} 0-0.5 [facility] Platelet mean volume Auto (B ld) [Entitic vol]Ordered By: Prem Goel on 03-12-2023 Platelet mean volume (Bld) [Entitic vol] 10.2 fL 6.3-10.7 [facility] Platelets Auto (Bld) [#/Vol] Ordered By: Prem Goel on 03-12-2023 Platelets (Bld) [#/Vol] 201 10*3/uL 150-450 [facility] Potassium [Moles/volume] in Serum or PlasmaOrdered By: Prem Goel on 03-12-2023 Potassium [Moles/Vol] 4.3 mmol/L 3.5-5.1 [facility] Protein [Mass/volume] in Ser um or PlasmaOrdered By: Prem Goel on 03-12-2023 Protein [Mass/Vol] 6.1 g/dL 6.4-8.9 [facility] RBC Auto (Bld) [#/Vol]Ordere d By: Prem Goel on 03-12-2023 RBC (Bld) [#/Vol] 4.99 10*6/uL 3.60-5.00 [facility] Serum or plasma albumin/glob ulin mass ratioOrdered By: Prem Goel on 03-12-2023 Albumin/Globulin [Mass ratio] 1.8 {ratio} [facility] Serum or plasma anion gap de terminationOrdered By: Prem Goel on 03-12-2023 Anion gap [Moles/Vol] 10.1 mmol/L 6.0-15.0 [facility] Serum or plasma high density lipoprotein (HDL) cholesterol measurementOrdered By: Prem Goel on 03-12-2023 Cholesterol in HDL [Mass/Vol] 66 mg/dL 23-92 [facility] Comment on above: HDL CHOL ATP-III CLA SSIFICATION Cardiovascular RiskHDL > or equal to 60 mg/dL LOWHDL < 40 mg/dL HIGH Serum or plasma total choles terol/high density lipoprotein (HDL) cholesterol mass ratOrdered By: Prem Goel on 03-12-2023 Cholesterol.total/Araceli sterol in HDL [Mass ratio] 3.5 {ratio} <5.0 [facility] Sodium [Moles/volume] in Ser um or PlasmaOrdered By: Prem Goel on 03-12-2023 Sodium [Moles/Vol] 141 mmol/L 136-145 [facility] Thyroid Stimulating Hormoneo n 03-12-2023 TSH Qn 1.91 m[IU]/L Normal 0.45-5.33 [facility] Comment on above: Order Comment: Reaso n for Exam Hyperlipidemia Result Comment: PERF ORMED BY: [place] [address] PATHOLOGIST MERCHANDISE DIRECTOR BEV TALBERT M.D. Performed By: #### A 1C WTH eA, LIPID, TSH3, CBC, CMP #### [address] Thyrotropin [Units/volume] i n Serum or PlasmaOrdered By: Prem Goel on 03-12-2023 TSH Qn 1.91 m[IU]/L 0.45-5.33 [facility] Triglyceride [Mass/volume] i n Serum or PlasmaOrdered By: Prem Goel on 03-12-2023 Triglyceride [Mass/Vol] 78 mg/dL 0-149 [facility] Comment on above: TRIG ATP III CLASSIF ICATIONTRIG less than 150 mg/dL NormalTRIG 150-199 mg/dL Borderline highTRIG 200-500 mg/dL High TRIG greater than 500 mg/dL Very highStandard traceable to the Center for Disease Conrtrol and Prevention (CDC) test method. Urea nitrogen [Mass/volume] in Serum or PlasmaOrdered By: Prem Goel on 03-12-2023 Urea nitrogen [Mass/Vol] 18 mg/dL 12-30 [facility] WBC Auto (Bld) [#/Vol]Ordere d By: Prem Goel on 03-12-2023 WBC (Bld) [#/Vol] 6.1 10*3/uL 3.8-11.6 [facility] A1C with Estimated Average G luon 10-30-2022 Glucose [Mass/Vol] 128 mg/dL Normal [facility] Comment on above: Order Comment: Reaso n for Exam Hyperlipidemia Result Comment: PERF ORMED BY: [place] [address] PATHOLOGIST MERCHANDISE DIRECTOR BEV TALBERT M.D. Performed By: #### A 1C WTH eA, LIPID, TSH3, CBC, CMP #### [facility] [address] HbA1c (Bld) [Mass fraction] 6.1 % High 4.3-5.6 [facility] Comment on above: Order Comment: Reaso n for Exam Hyperlipidemia Result Comment: Incr eased risk for diabetes: 5.7 - 6.4 diabetes: >6.4 glycemic control for adults with diabetes: <7.0 Performed By: #### A 1C [facility] eA, LIPID, TSH3, CBC, CMP #### [facility] [address] Complete Blood Count Auto Di ffon 10-30-2022 Basophils (Bld) [#/Vol] 0.0 10*3/uL Normal 0.0-0.2 [facility] Comment on above: Order Comment: Reaso n for Exam Hyperlipidemia Result Comment: PERF ORMED BY: [place] [address] PATHOLOGIST MERCHANDISE DIRECTOR BEV TALBERT M.D. Performed By: #### C BC #### [address] Basophils/100 WBC (Bld) 0.6 % Normal . [facility] Comment on above: Order Comment: Reaso n for Exam Hyperlipidemia Performed By: #### C BC #### [address] Eosinophils (Bld) [#/Vol] 0.5 10*3/uL High 0.0-0.45 [facility] Comment on above: Order Comment: Reaso n for Exam Hyperlipidemia Performed By: #### C BC #### [address] Eosinophils/100 WBC (Bld) 8.1 % Normal . [facility] Comment on above: Order Comment: Reaso n for Exam Hyperlipidemia Performed By: #### C BC #### [address] Erythrocyte distribution width (RBC) [Ratio] 13.8 % Normal 11.9-15.3 [facility] Comment on above: Order Comment: Reaso n for Exam Hyperlipidemia Performed By: #### C BC #### [address] Hematocrit (Bld) [Volume fraction] 43.9 % Normal 34.0-46.4 [facility] Comment on above: Order Comment: Reaso n for Exam Hyperlipidemia Performed By: #### C BC #### [address] Hemoglobin (Bld) [Mass/Vol] 14.6 g/dL Normal 11.8-15.4 [facility] Comment on above: Order Comment: Reaso n for Exam Hyperlipidemia Performed By: #### C BC #### [address] Lymphocytes (Bld) [#/Vol] 1.5 10*3/uL Normal 1.00-4.8 [facility] Comment on above: Order Comment: Reaso n for Exam Hyperlipidemia Performed By: #### C BC #### [address] Lymphocytes/100 WBC (Bld) 27.1 % Normal . [facility] Comment on above: Order Comment: Reaso n for Exam Hyperlipidemia Performed By: #### C BC #### [address] MCH (RBC) [Entitic mass] 30.0 pg Normal 24.7-34.3 [facility] Comment on above: Order Comment: Reaso n for Exam Hyperlipidemia Performed By: #### C BC #### [address] MCV (RBC) [Entitic vol] 90.4 fL Normal 80-100 [facility] Comment on above: Order Comment: Reaso n for Exam Hyperlipidemia Performed By: #### C BC #### [address] Mean Corpuscular HGB Conc 33.3 g/dL Normal 32.0-35.0 [facility] Comment on above: Order Comment: Reaso n for Exam Hyperlipidemia Performed By: #### C BC #### [facility] [address] [place] [address] [place] Monocytes (Bld) [#/Vol] 0.6 10*3/uL Normal 0.0-0.8 [facility] Comment on above: Order Comment: Reaso n for Exam Hyperlipidemia Performed By: #### C BC #### [facility] [address] [place] [address] [place] Monocytes/100 WBC (Bld) 10.7 % Normal . [facility] [facility] Comment on above: Order Comment: Reaso n for Exam Hyperlipidemia Performed By: #### C BC #### [place] [address] [place] Neutrophils (Bld) [#/Vol] 3.0 10*3/uL Normal 1.8-7.7 [facility] Comment on above: Order Comment: Reaso n for Exam Hyperlipidemia Performed By: #### C BC #### [place] [address] [place] Neutrophils/100 WBC (Bld) 53.5 % Normal . [facility] Comment on above: Order Comment: Reaso n for Exam Hyperlipidemia Performed By: #### C BC #### [facility] [address] [place] [address] NRBC% 0.1 /100{WBC} Normal 0-0.5 [facility] Comment on above: Order Comment: Reaso n for Exam Hyperlipidemia Performed By: #### C BC #### [facility] [address] [place] [address] [place] Platelet mean volume (Bld) [Entitic vol] 9.7 fL Normal 6.3-10.7 [facility] Comment on above: Order Comment: Reaso n for Exam Hyperlipidemia Performed By: #### C BC #### [facility] [address] [place] [address] [place] Platelets (Bld) [#/Vol] 196 10*3/uL Normal 150-450 [facility] Comment on above: Order Comment: Reaso n for Exam Hyperlipidemia Performed By: #### C BC #### [place] [address] [place] RBC (Bld) [#/Vol] 4.86 10*6/uL Normal 3.60-5.00 [facility] Comment on above: Order Comment: Reaso n for Exam Hyperlipidemia Performed By: #### C BC #### [facility] [address] WBC (Bld) [#/Vol] 5.7 10*3/uL Normal 3.8-11.6 [facility] Comment on above: Order Comment: Reaso n for Exam Hyperlipidemia Performed By: #### C BC #### [facility] [address] [place] [address] Comprehensive Metabolic Pane [place] 10-30-2022 Albumin [Mass/Vol] 3.6 g/dL Normal 3.5-5.7 [facility] Comment on above: Order Comment: Reaso n for Exam Hyperlipidemia Performed By: #### T SH3, CMP, LIPID #### [facility] [address] [place] [address] Albumin/Globulin [Mass ratio] 1.2 {ratio} Normal [facility] Comment on above: Order Comment: Reaso n for Exam Hyperlipidemia Performed By: #### T SH3, CMP, LIPID #### [facility] [address] [place] [address] ALP [Catalytic activity/Vol] 102 U/L Normal 34-104 [facility] Comment on above: Order Comment: Reaso n for Exam Hyperlipidemia Performed By: #### T SH3, CMP, LIPID #### [facility] [address] [place] [address] ALT [Catalytic activity/Vol] 14 U/L Normal 7-52 [facility] Comment on above: Order Comment: Reaso n for Exam Hyperlipidemia Performed By: #### T SH3, CMP, LIPID #### [facility] [address] [place] [address] Anion gap [Moles/Vol] 9.0 mmol/L Normal 6.0-15.0 [facility] Comment on above: Order Comment: Reaso n for Exam Hyperlipidemia Performed By: #### T SH3, CMP, LIPID #### [facility] [address] AST [Catalytic activity/Vol] 18 U/L Normal 13-39 [facility] Comment on above: Order Comment: Reaso n for Exam Hyperlipidemia Performed By: #### T SH3, CMP, LIPID #### [facility] [address] Bilirubin [Mass/Vol] 0.5 mg/dL Normal 0.3-1.0 [facility] Comment on above: Order Comment: Reaso n for Exam Hyperlipidemia Performed By: #### T SH3, CMP, LIPID #### [facility] [address] Calcium [Mass/Vol] 9.0 mg/dL Normal 8.6-10.3 [facility] Comment on above: Order Comment: Reaso n for Exam Hyperlipidemia Performed By: #### T SH3, CMP, LIPID #### [facility] [address] [place] [address] Chloride [Moles/Vol] 106 mmol/L Normal 98-107 [facility] Comment on above: Order Comment: Reaso n for Exam Hyperlipidemia Performed By: #### T SH3, CMP, LIPID #### [facility] [address] [place] [address] CO2 [Moles/Vol] 30.8 mmol/L Normal 21.0-31.0 [facility] Comment on above: Order Comment: Reaso n for Exam Hyperlipidemia Performed By: #### T SH3, CMP, LIPID #### [facility] [address] [place] [address] [place] Creatinine [Mass/Vol] 0.75 mg/dL Normal 0.60-1.20 [facility] Comment on above: Order Comment: Reaso n for Exam Hyperlipidemia Performed By: #### T SH3, CMP, LIPID #### [facility] [address] [place] [address] [place] GFR/1.73 sq M.predicted MDRD (S/P/Bld) [Vol rate/Area] mL/min/{1.73_m2} Normal [facility] Comment on above: Order Comment: Reaso n for Exam Hyperlipidemia Performed By: #### T SH3, CMP, LIPID #### [facility] [address] [place] [id number] [facility] Globulin (S) [Mass/Vol] 2.9 g/dL Normal [facility] Comment on above: Order Comment: Reaso n for Exam Hyperlipidemia Performed By: #### T SH3, CMP, LIPID #### [facility] [address] Glucose [Mass/Vol] 92 mg/dL Normal 70-100 [facility] Comment on above: Order Comment: Reaso n for Exam Hyperlipidemia Result Comment: [facility] Glucose Reference Range is dependent on time and content of last meal. Glucose of more than 200 mg/dL in a nonstressed, ambulatory subject supports the diagnosis of Diabetes Mellitus. ADA recommended reference range Performed By: #### T SH3, CMP, LIPID #### [facility] [address] Potassium [Moles/Vol] 4.8 mmol/L Normal 3.5-5.1 [facility] Comment on above: Order Comment: Reaso n for Exam Hyperlipidemia Performed By: #### T SH3, CMP, LIPID #### [facility] [address] [place] [address] Protein [Mass/Vol] 6.5 g/dL Normal 6.4-8.9 [facility] Comment on above: Order Comment: Reaso n for Exam Hyperlipidemia Performed By: #### T SH3, CMP, LIPID #### [facility] [address] [place] [address] [place] Sodium [Moles/Vol] 141 mmol/L Normal 136-145 [facility] Comment on above: Order Comment: Reaso n for Exam Hyperlipidemia Performed By: #### T SH3, CMP, LIPID #### [facility] [address] [place] [id number] [facility] Urea nitrogen [Mass/Vol] 18 mg/dL Normal 7-25 [facility] Comment on above: Order Comment: Reaso n for Exam Hyperlipidemia Performed By: #### T SH3, CMP, LIPID #### [facility] [address] Lipid Panelon 10-30-2022 Cholesterol [Mass/Vol] 218 mg/dL High 140-200 [facility] Comment on above: Order Comment: Reaso n for Exam Hyperlipidemia Result Comment: Chol less than 200 mg/dl low risk Chol 201-239 mg/dl borderline risk Chol 240 mg/dl and greater high risk Performed By: #### T SH3, CMP, LIPID #### [facility] [address] [place] [address] [place] Cholesterol in HDL [Mass/Vol] 51 mg/dL Normal 35-85 [facility] Comment on above: Order Comment: Reaso n for Exam Hyperlipidemia Result Comment: HDL CHOL ATP-III CLASSIFICATION Cardiovascular Risk HDL > or equal to 60 mg/dL LOW HDL < 40 mg/dL HIGH Performed By: #### T SH3, CMP, LIPID #### [facility] [address] [place] [address] [place] Cholesterol.total/Araceli sterol in HDL [Mass ratio] 4.3 {ratio} Normal <5.0 [facility] Comment on above: Order Comment: Reaso n for Exam Hyperlipidemia Performed By: #### T SH3, CMP, LIPID #### [facility] [address] [place] [address] [place] LDL Cholesterol,Calculated 151 mg/dL High 0-100 [facility] Comment on above: Order Comment: Reaso n for Exam Hyperlipidemia Result Comment: LDL ATP III CLASSIFICATION LDL less than 100 mg/dL Optimal LDL 100-129 mg/dL Near or above optimal LDL 130-159 mg/dL Borderline high LDL 160-189 mg/dL High LDL greater than 189 mg/dL Very high Performed By: #### T SH3, CMP, LIPID #### [facility] [address] [place] [address] [place] Triglyceride w/Reflex 78 mg/dL Normal 0-149 [facility] Comment on above: Order Comment: Reaso n for Exam Hyperlipidemia Result Comment: TRIG ATP III CLASSIFICATION TRIG less than 150 mg/dL Normal TRIG 150-199 mg/dL Borderline high TRIG 200-500 mg/dL High TRIG greater than 500 mg/dL Very high Standard traceable to the Center for Disease Conrtrol and Prevention (CDC) test method. Performed By: #### T SH3, CMP, LIPID #### [facility] [address] VLDL CHOLESTEROL 15 mg/dL Normal [facility] Comment on above: Order Comment: Reaso n for Exam Hyperlipidemia Performed By: #### T SH3, CMP, LIPID #### [address] Thyroid Stimulating Hormoneo n 10-30-2022 TSH Qn 1.72 m[IU]/L Normal 0.45-5.33 [facility] Comment on above: Order Comment: Reaso n for Exam Hyperlipidemia Result Comment: PERF ORMED BY: [place] [address] PATHOLOGIST MERCHANDISE DIRECTOR BEV TALBERT M.D. Performed By: #### T SH3, CMP, LIPID #### [address] A1C with Estimated Average G luon 04-29-2022 Glucose [Mass/Vol] 126 mg/dL Normal [facility] Comment on above: Order Comment: Reaso n for Exam Hyperglycemia Result Comment: PERF ORMED BY: [place] [address] PATHOLOGIST MERCHANDISE DIRECTOR BEV TALBERT M.D. Performed By: #### A 1C WTH eA, LIPID, TSH3, CBC, CMP #### [address] HbA1c (Bld) [Mass fraction] 6.0 % High 4.3-5.6 [facility] Comment on above: Order Comment: Reaso n for Exam Hyperglycemia Result Comment: Incr eased risk for diabetes: 5.7 - 6.4 diabetes: >6.4 glycemic control for adults with diabetes: <7.0 Performed By: #### A 1C WTH eA, LIPID, TSH3, CBC, CMP #### [facility] [address] [place] [address] Albumin [Mass/volume] in Ser um or PlasmaOrdered By: Prem Goel on 04-29-2022 Albumin [Mass/Vol] 3.4 g/dL 3.2-5.5 [facility] Basophils Auto (Bld) [#/Vol] Ordered By: Prem Goel on 04-29-2022 Basophils (Bld) [#/Vol] 0.0 10*3/uL 0.0-0.2 [facility] Basophils/100 WBC Auto (Bld) Ordered By: Prem Goel on 04-29-2022 Basophils/100 WBC (Bld) 0.3 % . [facility] Cholesterol [Mass/volume] in Serum or PlasmaOrdered By: Prem Goel on 04-29-2022 Cholesterol [Mass/Vol] 196 mg/dL 140-200 [facility] Comment on above: Chol less than 200 m g/dl low riskChol 201-239 mg/dl borderline riskChol 240 mg/dl and greater high risk Cholesterol in LDL Calc [Mas s/Vol]Ordered By: Prem Goel on 04-29-2022 Cholesterol in LDL [Mass/Vol] 109 mg/dL 0-100 [facility] Comment on above: LDL ATP III CLASSIFI CATIONLDL less than 100 mg/dL OptimalLDL 100-129 mg/dL Near or above optimalLDL 130-159 mg/dL Borderline highLDL 160-189 mg/dL HighLDL greater than 189 mg/dL Very high Cholesterol in VLDL Calc [Ma ss/Vol]Ordered By: Prem Goel on 04-29-2022 Cholesterol in VLDL [Mass/Vol] 10 mg/dL [facility] Complete Blood Count Auto Di ffon 04-29-2022 Basophils (Bld) [#/Vol] 0.0 10*3/uL Normal 0.0-0.2 [facility] Comment on above: Order Comment: Reaso n for Exam Hyperlipidemia Result Comment: PERF ORMED BY: [place] [address] PATHOLOGIST MERCHANDISE DIRECTOR BEV TALBERT M.D. Performed By: #### A 1C [facility] Garrett, LIPID, TSH3, CBC, CMP #### [facility] [address] Basophils/100 WBC (Bld) 0.3 % Normal . [facility] Comment on above: Order Comment: Reaso n for Exam Hyperlipidemia Performed By: #### A 1C [facility] Garrett, LIPID, TSH3, CBC, CMP #### [address] Eosinophils (Bld) [#/Vol] 0.1 10*3/uL Normal 0.0-0.45 [facility] Comment on above: Order Comment: Reaso n for Exam Hyperlipidemia Performed By: #### A 1C WTH eA, LIPID, TSH3, CBC, CMP #### [address] Eosinophils/100 WBC (Bld) 0.5 % Normal . [facility] Comment on above: Order Comment: Reaso n for Exam Hyperlipidemia Performed By: #### A 1C WTH eA, LIPID, TSH3, CBC, CMP #### [address] Erythrocyte distribution width (RBC) [Ratio] 13.4 % Normal 11.9-15.3 [facility] Comment on above: Order Comment: Reaso n for Exam Hyperlipidemia Performed By: #### A 1C WTH eA, LIPID, TSH3, CBC, CMP #### [address] Hematocrit (Bld) [Volume fraction] 46.2 % Normal 34.0-46.4 [facility] Comment on above: Order Comment: Reaso n for Exam Hyperlipidemia Performed By: #### A 1C WTH eA, LIPID, TSH3, CBC, CMP #### [address] Hemoglobin (Bld) [Mass/Vol] 14.9 g/dL Normal 11.8-15.4 [facility] Comment on above: Order Comment: Reaso n for Exam Hyperlipidemia Performed By: #### A 1C WTH eA, LIPID, TSH3, CBC, CMP #### [address] Lymphocytes (Bld) [#/Vol] 1.9 10*3/uL Normal 1.00-4.8 [facility] Comment on above: Order Comment: Reaso n for Exam Hyperlipidemia Performed By: #### A 1C WTH eA, LIPID, TSH3, CBC, CMP #### [facility] [address] Lymphocytes/100 WBC (Bld) 17.7 % Normal . [facility] Comment on above: Order Comment: Reaso n for Exam Hyperlipidemia Performed By: #### A 1C WT eA, LIPID, TSH3, CBC, CMP #### [facility] [address] MCH (RBC) [Entitic mass] 30.0 pg Normal 24.7-34.3 [facility] Comment on above: Order Comment: Reaso n for Exam Hyperlipidemia Performed By: #### A 1C [facility] eA, LIPID, TSH3, CBC, CMP #### [facility] [address] MCV (RBC) [Entitic vol] 93.4 fL Normal 80-100 [facility] Comment on above: Order Comment: Reaso n for Exam Hyperlipidemia Performed By: #### A 1C [facility] eA, LIPID, TSH3, CBC, CMP #### [address] Mean Corpuscular HGB Conc 32.1 g/dL Normal 32.0-35.0 [facility] Comment on above: Order Comment: Reaso n for Exam Hyperlipidemia Performed By: #### A 1C [facility] eA, LIPID, TSH3, CBC, CMP #### [address] Monocytes (Bld) [#/Vol] 1.1 10*3/uL High 0.0-0.8 [facility] Comment on above: Order Comment: Reaso n for Exam Hyperlipidemia Performed By: #### A 1C WT eA, LIPID, TSH3, CBC, CMP #### [place] [address] [place] Monocytes/100 WBC (Bld) 10.4 % Normal . [facility] Comment on above: Order Comment: Reaso n for Exam Hyperlipidemia Performed By: #### A 1C WT eA, LIPID, TSH3, CBC, CMP #### [place] [address] [place] Neutrophils (Bld) [#/Vol] 7.6 10*3/uL Normal 1.8-7.7 [facility] Comment on above: Order Comment: Reaso n for Exam Hyperlipidemia Performed By: #### A 1C WTH eA, LIPID, TSH3, CBC, CMP #### [facility] [address] Neutrophils/100 WBC (Bld) 71.1 % Normal . [facility] Comment on above: Order Comment: Reaso n for Exam Hyperlipidemia Performed By: #### A 1C WTH eA, LIPID, TSH3, CBC, CMP #### [facility] [address] [place] [address] [place] Nucleated RBC/100 WBC (Bld) [Ratio] 0.0 % Normal 0-0.5 [facility] Comment on above: Order Comment: Reaso n for Exam Hyperlipidemia Performed By: #### A 1C WTH eA, LIPID, TSH3, CBC, CMP #### [facility] [address] [place] [address] [place] Platelet mean volume (Bld) [Entitic vol] 10.2 fL Normal 6.3-10.7 [facility] Comment on above: Order Comment: Reaso n for Exam Hyperlipidemia Performed By: #### A 1C WTH eA, LIPID, TSH3, CBC, CMP #### [facility] [address] [place] [address] [place] Platelets (Bld) [#/Vol] 238 10*3/uL Normal 150-450 [facility] Comment on above: Order Comment: Reaso n for Exam Hyperlipidemia Performed By: #### A 1C WTH eA, LIPID, TSH3, CBC, CMP #### [facility] [address] [place] [address] [place] RBC (Bld) [#/Vol] 4.95 10*6/uL Normal 3.60-5.00 [facility] Comment on above: Order Comment: Reaso n for Exam Hyperlipidemia Performed By: #### A 1C WTH eA, LIPID, TSH3, CBC, CMP #### [facility] [address] [place] [address] [place] WBC (Bld) [#/Vol] 10.7 10*3/uL Normal 4.5-11.0 [facility] Comment on above: Order Comment: Reaso n for Exam Hyperlipidemia Performed By: #### A 1C WTH eA, LIPID, TSH3, CBC, CMP #### [facility] [address] Comprehensive Metabolic Pane [place] 04-29-2022 Albumin [Mass/Vol] 3.4 g/dL Normal 3.2-5.5 [facility] Comment on above: Order Comment: Reaso n for Exam Hyperlipidemia Performed By: #### A 1C WT eA, LIPID, TSH3, CBC, CMP #### [facility] [address] Albumin/Globulin [Mass ratio] 1.0 {ratio} Normal [facility] Comment on above: Order Comment: Reaso n for Exam Hyperlipidemia Performed By: #### A 1C WT eA, LIPID, TSH3, CBC, CMP #### [facility] [address] ALP [Catalytic activity/Vol] 100 U/L High 32-92 [facility] Comment on above: Order Comment: Reaso n for Exam Hyperlipidemia Performed By: #### A 1C WT eA, LIPID, TSH3, CBC, CMP #### [facility] [address] ALT [Catalytic activity/Vol] 18 U/L Normal 10-60 [facility] Comment on above: Order Comment: Reaso n for Exam Hyperlipidemia Performed By: #### A 1C WTH eA, LIPID, TSH3, CBC, CMP #### [facility] [address] [place] [id number] [facility] Anion gap [Moles/Vol] 10.5 mmol/L Normal 6.0-15.0 [facility] Comment on above: Order Comment: Reaso n for Exam Hyperlipidemia Performed By: #### A 1C WTH eA, LIPID, TSH3, CBC, CMP #### [facility] [address] AST [Catalytic activity/Vol] 19 U/L Normal 10-42 [facility] Comment on above: Order Comment: Reaso n for Exam Hyperlipidemia Performed By: #### A 1C WT eA, LIPID, TSH3, CBC, CMP #### [facility] [address] Bilirubin [Mass/Vol] 0.8 mg/dL Normal 0.3-1.2 [facility] Comment on above: Order Comment: Reaso n for Exam Hyperlipidemia Performed By: #### A 1C WT eA, LIPID, TSH3, CBC, CMP #### [facility] [address] Calcium [Mass/Vol] 9.2 mg/dL Normal 8.2-10.2 [facility] Comment on above: Order Comment: Reaso n for Exam Hyperlipidemia Performed By: #### A 1C WT eA, LIPID, TSH3, CBC, CMP #### [facility] [address] Chloride [Moles/Vol] 102 mmol/L Normal 95-114 [facility] Comment on above: Order Comment: Reaso n for Exam Hyperlipidemia Performed By: #### A 1C WT eA, LIPID, TSH3, CBC, CMP #### [facility] [address] [place] [address] [place] CO2 [Moles/Vol] 28.5 mmol/L Normal 22.0-30.0 [facility] Comment on above: Order Comment: Reaso n for Exam Hyperlipidemia Performed By: #### A 1C WTH eA, LIPID, TSH3, CBC, CMP #### [facility] [address] [place] [id number] [place] Creatinine [Mass/Vol] 0.80 mg/dL Normal 0.44-1.03 [facility] Comment on above: Order Comment: Reaso n for Exam Hyperlipidemia Performed By: #### A 1C WTH eA, LIPID, TSH3, CBC, CMP #### [facility] [address] [place] [address] [place] Estimated GFR ( Reshma > 60 Normal [facility] Comment on above: Order Comment: Reaso n for Exam Hyperlipidemia Result Comment: GFR estimated reference range: According to KDOQI guidelines, <60 ml/min/1.73m2 is sufficient to diagnose a patient with chronic kidney disease. Performed By: #### A 1C WTH eA, LIPID, TSH3, CBC, CMP #### [facility] [address] Estimated GFR (Non- Am > 60 Normal [facility] Comment on above: Order Comment: Reaso n for Exam Hyperlipidemia Performed By: #### A 1C WTH eA, LIPID, TSH3, CBC, CMP #### [facility] [address] Globulin (S) [Mass/Vol] 3.3 g/dL Normal [facility] Comment on above: Order Comment: Reaso n for Exam Hyperlipidemia Performed By: #### A 1C WTH eA, LIPID, TSH3, CBC, CMP #### [facility] [address] Glucose [Mass/Vol] 111 mg/dL High 70-100 [facility] Comment on above: Order Comment: Reaso n for Exam Hyperlipidemia Result Comment: [facility] Glucose Reference Range is dependent on time and content of last meal. Glucose of more than 200 mg/dL in a nonstressed, ambulatory subject supports the diagnosis of Diabetes Mellitus. ADA recommended reference range Performed By: #### A 1C WTH eA, LIPID, TSH3, CBC, CMP #### [address] Potassium [Moles/Vol] 4.0 mmol/L Normal 3.5-5.1 [facility] Comment on above: Order Comment: Reaso n for Exam Hyperlipidemia Performed By: #### A 1C WTH eA, LIPID, TSH3, CBC, CMP #### [facility] [address] Protein [Mass/Vol] 6.7 g/dL Normal 6.1-7.9 [facility] Comment on above: Order Comment: Reaso n for Exam Hyperlipidemia Performed By: #### A 1C WTH eA, LIPID, TSH3, CBC, CMP #### [facility] [address] [place] [address] [place] Sodium [Moles/Vol] 137 mmol/L Normal 136-146 [facility] Comment on above: Order Comment: Reaso n for Exam Hyperlipidemia Performed By: #### A 1C [facility] eA, LIPID, TSH3, CBC, CMP #### [facility] [address] [place] [id number] [place] Urea nitrogen [Mass/Vol] 14 mg/dL Normal 9-23 [facility] Comment on above: Order Comment: Reaso n for Exam Hyperlipidemia Performed By: #### A 1C WT eA, LIPID, TSH3, CBC, CMP #### [facility] [address] [place] [id number] [place] Creatinine and Glomerular fi ltration rate.predicted panel (S/P/Bld)Ordered By: Prem Goel on 04-29-2022 Creatinine [Mass/Vol] 0.80 mg/dL 0.44-1.03 [facility] Eosinophils Auto (Bld) [#/Vo l]Ordered By: Prem Goel on 04-29-2022 Eosinophils (Bld) [#/Vol] 0.1 10*3/uL 0.0-0.45 [facility] Eosinophils/100 WBC Auto (Bl d)Ordered By: Prem Goel on 04-29-2022 Eosinophils/100 WBC (Bld) 0.5 % . [facility] Erythrocyte distribution wid th Auto (RBC) [Ratio]Ordered By: Prem Goel on 04-29-2022 Erythrocyte distribution width (RBC) [Ratio] 13.4 % 11.9-15.3 [facility] Estimated glomerular filtrat ion rate (GFR) non- AmericanOrdered By: Prem Goel on 04-29-2022 GFR/1.73 sq M.predicted among non-blacks MDRD (S/P/Bld) [Vol rate/Area] > 60 mL/Min [facility] Globulin Calc (S) [Mass/Vol] Ordered By: Prem Goel on 04-29-2022 Globulin (S) [Mass/Vol] 3.3 g/dL [facility] Hematocrit Auto (Bld) [Volum e fraction]Ordered By: Prem Goel on 04-29-2022 Hematocrit (Bld) [Volume fraction] 46.2 % 34.0-46.4 [facility] Hemoglobin [Mass/volume] in BloodOrdered By: Prem Goel on 04-29-2022 Hemoglobin (Bld) [Mass/Vol] 14.9 g/dL 11.8-15.4 [facility] - Hematology and Cell countsOrdered By: Prem Goel on 04-29-2022 Nucleated RBC/100 WBC (Bld) [Ratio] 0.0 % 0-0.5 [facility] Leukocytes [#/volume] in Blo od by Automated countOrdered By: Prem Goel on 04-29-2022 WBC (Bld) [#/Vol] 10.7 10*3/uL 4.5-11.0 [facility] Lipid Panelon 04-29-2022 Cholesterol [Mass/Vol] 196 mg/dL Normal 140-200 [facility] Comment on above: Order Comment: Reaso n for Exam Hyperlipidemia Result Comment: Chol less than 200 mg/dl low risk Chol 201-239 mg/dl borderline risk Chol 240 mg/dl and greater high risk Performed By: #### A 1C WTH eA, LIPID, TSH3, CBC, CMP #### [facility] [address] [place] [id number] [place] Cholesterol in HDL [Mass/Vol] 76 mg/dL Normal 35-85 [facility] Comment on above: Order Comment: Reaso n for Exam Hyperlipidemia Result Comment: HDL CHOL ATP-III CLASSIFICATION Cardiovascular Risk HDL > or equal to 60 mg/dL LOW HDL < 40 mg/dL HIGH Performed By: #### A 1C WTH eA, LIPID, TSH3, CBC, CMP #### [facility] [address] [place] [address] [place] Cholesterol.total/Araceli sterol in HDL [Mass ratio] 2.6 {ratio} Normal <5.0 [facility] Comment on above: Order Comment: Reaso n for Exam Hyperlipidemia Performed By: #### A 1C WTH eA, LIPID, TSH3, CBC, CMP #### [facility] [address] [place] [address] [place] LDL Cholesterol,Calculated 109 mg/dL High 0-100 [facility] Comment on above: Order Comment: Reaso n for Exam Hyperlipidemia Result Comment: LDL ATP III CLASSIFICATION LDL less than 100 mg/dL Optimal LDL 100-129 mg/dL Near or above optimal LDL 130-159 mg/dL Borderline high LDL 160-189 mg/dL High LDL greater than 189 mg/dL Very high Performed By: #### A 1C WTH eA, LIPID, TSH3, CBC, CMP #### [facility] [address] Triglyceride w/Reflex 53 mg/dL Normal 35-149 [facility] Comment on above: Order Comment: [...] WTH eA, LIPID, TSH3, CBC, CMP #### [facility] [address] VLDL CHOLESTEROL 10 mg/dL Normal [facility] Comment on above: Order Comment: Reaso n for Exam Hyperlipidemia Performed By: #### A 1C WTH eA, LIPID, TSH3, CBC, CMP #### [facility] [address] [place] [address] [place] Lymphocytes Auto (Bld) [#/Vo l]Ordered By: Prem Goel on 04-29-2022 Lymphocytes (Bld) [#/Vol] 1.9 10*3/uL 1.00-4.8 [facility] Lymphocytes/100 WBC Auto (Bl d)Ordered By: Prem Goel on 04-29-2022 Lymphocytes/100 WBC (Bld) 17.7 % . [facility] MCH Auto (RBC) [Entitic mass ]Ordered By: Prem Goel on 04-29-2022 MCH (RBC) [Entitic mass] 30.0 pg 24.7-34.3 [facility] MCHC Auto (RBC) [Mass/Vol]Or dered By: Prem Goel on 04-29-2022 MCHC (RBC) [Mass/Vol] 32.1 g/dL 32.0-35.0 [facility] MCV Auto (RBC) [Entitic vol] Ordered By: Prem Goel on 04-29-2022 MCV (RBC) [Entitic vol] 93.4 fL 80-100 [facility] Monocytes Auto (Bld) [#/Vol] Ordered By: Prem Goel on 04-29-2022 Monocytes (Bld) [#/Vol] 1.1 10*3/uL 0.0-0.8 [facility] Monocytes/100 WBC Auto (Bld) Ordered By: Prem Goel on 04-29-2022 Monocytes/100 WBC (Bld) 10.4 % . [facility] Neutrophils Auto (Bld) [#/Vo l]Ordered By: Prem Goel on 04-29-2022 Neutrophils (Bld) [#/Vol] 7.6 10*3/uL 1.8-7.7 [facility] Neutrophils/100 WBC Auto (Bl d)Ordered By: Prem Goel on 04-29-2022 Neutrophils/100 WBC (Bld) 71.1 % . [facility] No Panel InformationOrdered By: Prem Goel on 04-29-2022 Estimated GFR () > 60 mL/Min [facility] Comment on above: GFR estimated refere nce range: According to KDOQI guidelines, <60 ml/min/1.73m2 is sufficient to diagnose a patient with chronic kidney disease. Pharmacy Creatinine Clearance (Chem N/A [facility] Platelet mean volume Auto (B ld) [Entitic vol]Ordered By: Prem Goel on 04-29-2022 Platelet mean volume (Bld) [Entitic vol] 10.2 fL 6.3-10.7 [facility] Platelets Auto (Bld) [#/Vol] Ordered By: Prem Goel on 04-29-2022 Platelets (Bld) [#/Vol] 238 10*3/uL 150-450 [facility] Protein [Mass/volume] in Ser um or PlasmaOrdered By: Prem Goel on 04-29-2022 Protein [Mass/Vol] 6.7 g/dL 6.1-7.9 [facility] RBC Auto (Bld) [#/Vol]Ordere d By: Prem Goel on 04-29-2022 RBC (Bld) [#/Vol] 4.95 10*6/uL 3.60-5.00 [facility] [place] Serum or plasma alanine tobias otransferase measurement without P-5'-P (enzymatic activiOrdered By: Prem Goel on 04-29-2022 ALT No additional P-5'-P [Catalytic activity/Vol] 18 U/L 10-60 [facility] Serum or plasma albumin/glob ulin mass ratioOrdered By: Prem Goel on 04-29-2022 Albumin/Globulin [Mass ratio] 1.0 {ratio} [facility] Serum or plasma alkaline joshua sphatase measurement (enzymatic activity/volume)Ordered By: Prem Goel on 04-29-2022 ALP [Catalytic activity/Vol] 100 U/L 32-92 [facility] Serum or plasma anion gap de terminationOrdered By: Prem Goel on 04-29-2022 Anion gap [Moles/Vol] 10.5 mmol/L 6.0-15.0 [facility] Serum or plasma aspartate am inotransferase measurement (enzymatic activity/volume)Ordered By: Prem Goel on 04-29-2022 AST [Catalytic activity/Vol] 19 U/L 10-42 [facility] Serum or plasma calcium erica urement (mass/volume)Ordered By: Prem Goel on 04-29-2022 Calcium [Mass/Vol] 9.2 mg/dL 8.2-10.2 [facility] Serum or plasma chloride omaira surement (moles/volume)Ordered By: Prem Goel on 04-29-2022 Chloride [Moles/Vol] 102 mmol/L 95-114 [facility] Serum or plasma glucose erica urement (mass/volume)Ordered By: Prem Goel on 04-29-2022 Glucose [Mass/Vol] 111 mg/dL 70-100 [facility] Comment on above: ADA recommended refe rence rangeRandom Glucose Reference Range is dependent on time and content of last meal. Glucose of more than 200 mg/dL in a nonstressed, ambulatory subject supports the diagnosis of Diabetes Mellitus. Serum or plasma high density lipoprotein (HDL) cholesterol measurementOrdered By: Prem Goel on 04-29-2022 Cholesterol in HDL [Mass/Vol] 76 mg/dL 35-85 [facility] Comment on above: HDL CHOL ATP-III CLA SSIFICATION Cardiovascular RiskHDL > or equal to 60 mg/dL LOWHDL < 40 mg/dL HIGH Serum or plasma potassium me asurement (moles/volume)Ordered By: Prem Goel on 04-29-2022 Potassium [Moles/Vol] 4.0 mmol/L 3.5-5.1 [facility] Serum or plasma sodium measu rement (moles/volume)Ordered By: Prem Goel on 04-29-2022 Sodium [Moles/Vol] 137 mmol/L 136-146 [facility] Serum or plasma total biliru bin measurement (mass/volume)Ordered By: Prem Goel on 04-29-2022 Bilirubin [Mass/Vol] 0.8 mg/dL 0.3-1.2 [facility] Serum or plasma total carbon dioxide measurement (moles/volume)Ordered By: Prem Goel on 04-29-2022 CO2 [Moles/Vol] 28.5 mmol/L 22.0-30.0 [facility] Serum or plasma total choles terol/high density lipoprotein (HDL) cholesterol mass ratOrdered By: Prem Goel on 04-29-2022 Cholesterol.total/Araceli sterol in HDL [Mass ratio] 2.6 {ratio} <5.0 [facility] Serum or plasma urea nitroge n measurement (mass/volume)Ordered By: Prem Goel on 04-29-2022 Urea nitrogen [Mass/Vol] 14 mg/dL - [facility] TSH DL <= 0.005 mIU/L QnOrde red By: Prem Goel on 04-29-2022 TSH Qn 1.74 m[IU]/L 0.45-5.33 [facility] Thyroid Stimulating Hormoneo n 04-29-2022 TSH Qn 1.74 m[IU]/L Normal 0.45-5.33 [facility] Comment on above: Order Comment: Reaso n for Exam Hyperlipidemia Result Comment: PERF ORMED BY: [place] [address] PATHOLOGIST MERCHANDISE DIRECTOR BEV TALBERT M.D. Performed By: #### A 1C [facility] eA, LIPID, TSH3, CBC, CMP #### [address] Triglyceride [Mass/volume] i n Serum or PlasmaOrdered By: Prem Goel on 04-29-2022 Triglyceride [Mass/Vol] 53 mg/dL 35-149 [facility] Comment on above: TRIG ATP III CLASSIF ICATIONTRIG less than 150 mg/dL NormalTRIG 150-199 mg/dL Borderline highTRIG 200-500 mg/dL High TRIG greater than 500 mg/dL Very highStandard traceable to the Center for Disease Conrtrol and Prevention (CDC) test method. A1C HEMOGLOBINon 04-30-2021 HbA1c (Bld) [Mass fraction] 5.8 % [facility] Other HbA1c (Bld) [Mass fraction]o n 04-30-2021 A1C HEMOGLOBIN [facility] Other [facility] CARDIAC STRESS/REST (DOUGLAS CARDIAL PERFUSION/MIBI)on 04-09-2020 [facility] CARDIAC STRESS/REST (MYOCARDIAL PERFUSION/MIBI) Patient Name: ISAIAS WILKERSON STUDY: MYOCARDIAL PERFUSION STRESS TEST WITH LEXISCAN Performing facility: [facility], [address] [place] [address], [address] Provider: WP SMYTH PCP: Dr. PREM GOEL Supervising provider: WP SMYTH INDICATION: CP HISTORY: Gender: F; Age: 84 y/o ; Height: 157.48 cm; Weight: 78.6374958 kg. High Cholesterol; CP Family HX CAD; Denies smoking. COMPARISON: Previous nuclear testing completed at [facility]. ACCESSION NUMBER(S): [id number] ORDERING CLINICIAN: MATT SMYTH TECHNIQUE: ONE DAY [...] Electronically signed by: BRIELLE DUVAL MD Normal [facility] CARDIAC STRESS/REST INJE CTIONon 04-09-2020 [facility] CARDIAC STRESS/REST INJECTION Patient Name: ISAIAS WILKERSON STUDY: MYOCARDIAL PERFUSION STRESS TEST WITH LEXISCAN Performing facility: [facility], [address] [place] [address], [address], [address] Provider: WP SMYTH PCP: Dr. PREM GOEL Supervising provider: WP SMYTH INDICATION: CP HISTORY: Gender: F; Age: 84 y/o ; Height: 157.48 cm; Weight: 78.5932206 kg. High Cholesterol; CP Family HX CAD; Denies smoking. COMPARISON: Previous nuclear testing completed at [facility]. ACCESSION NUMBER(S): [id number] ORDERING CLINICIAN: MATT SMYTH TECHNIQUE: ONE DAY [...] Electronically signed by: BRIELLE DUVAL MD Normal [facility] PART 2 STRESS OR REST (N O CHARGE)on 04-09-2020 [facility] PART 2 STRESS OR REST (NO CHARGE) Patient Name: ISAIAS WILKERSON STUDY: MYOCARDIAL PERFUSION STRESS TEST WITH LEXISCAN Performing facility: [facility], [address] [place] [address], [address], [address] Provider: WP SMYTH PCP: Dr. PREM GOEL Supervising provider: WP SMYTH INDICATION: CP HISTORY: Gender: F; Age: 84 y/o ; Height: 157.48 cm; Weight: 78.4638128 kg. High Cholesterol; CP Family HX CAD; Denies smoking. COMPARISON: Previous nuclear testing completed at [facility]. ACCESSION NUMBER(S): [id number] ORDERING CLINICIAN: MATT SMYTH TECHNIQUE: ONE DAY [...] Body height 154.94 cm Prem Goel Other [facility] Other 03-17-2023 08:45-0400 Body mass index (BMI) [Ratio] 30.98 kg/m2 Prem Goel Other [facility] Other 03-17-2023 08:45-0400 Body weight 74.39 kg Prem Goel Other [facility] Other 03-17-2023 08:45-0400 Diastolic blood pressure 76 mm[Hg] Prem Goel Other [facility] Other 03-17-2023 08:45-0400 Respiratory rate 16 /min Prem Goel Other [facility] Other 03-17-2023 08:45-0400 SaO2% (BldA) [Mass fraction] 96 % Prem Kuns Other [facility] Other 03-17-2023 08:45-0400 Systolic blood pressure 120 mm[Hg] Prem Kuns Other [facility] Other 11-12-2022 14:45-0400 Body height 154.94 cm Prem Kuns Other [facility] Other 11-12-2022 14:45-0400 Body mass index (BMI) [Ratio] 31.36 kg/m2 Prem Kuns Other [facility] Other 11-12-2022 14:45-0400 Body weight 75.3 kg Prem Kuns Other [facility] Other 11-12-2022 14:45-0400 Diastolic blood pressure 68 mm[Hg] Prem Kuns Other [facility] Other 11-12-2022 14:45-0400 Respiratory rate 16 /min Prem Kuns Other [facility] Other 11-12-2022 14:45-0400 SaO2% (BldA) [Mass fraction] 93 % Prem Kuns Other [facility] Other 11-12-2022 14:45-0400 Systolic blood pressure 124 mm[Hg] Prem Kuns Other [facility] Other 01-28-2022 11:15-0400 Body height 154.94 cm Prem Kuns Other [facility] Other 01-28-2022 11:15-0400 Body mass index (BMI) [Ratio] 30.98 kg/m2 Prem Kuns Other [facility] Other 01-28-2022 11:15-0400 Body weight 74.39 kg Prem Kuns Other [facility] Other 01-28-2022 11:15-0400 Diastolic blood pressure 82 mm[Hg] Prem Kuns Other [facility] Other 01-28-2022 11:15-0400 Respiratory rate 18 /min Prem Kuns Other [facility] Other 01-28-2022 11:15-0400 SaO2% (BldA) [Mass fraction] 95 % Prem Kuns Other [facility] Other 01-28-2022 11:15-0400 Systolic blood pressure 142 mm[Hg] Prem Kuns Other [facility] Other 08-15-2021 14:45-0500 Body height 154.94 cm Prem Kuns Other [facility] Other 08-15-2021 14:45-0500 Body mass index (BMI) [Ratio] 30.04 kg/m2 Prem Kuns Other [facility] Other 08-15-2021 14:45-0500 Body weight 72.12 kg Prem Kuns Other [facility] Other 08-15-2021 14:45-0500 Diastolic blood pressure 80 mm[Hg] Prem Kuns Other [facility] Other 08-15-2021 14:45-0500 Respiratory rate 16 /min Prem Kuns Other [facility] Other 08-15-2021 14:45-0500 SaO2% (BldA) [Mass fraction] 99 % Prem Kuns Other [facility] Other 08-15-2021 14:45-0500 Systolic blood pressure 142 mm[Hg] Prem Kuns Other [facility] Other 04-30-2021 11:45-0500 Body height 154.94 cm Prem Kuns Other [facility] Other 04-30-2021 11:45-0500 Body mass index (BMI) [Ratio] 29.74 kg/m2 Prem Kuns Other [facility] Other 04-30-2021 11:45-0500 Body weight 71.4 kg Prem Kuns Other [facility] Other 04-30-2021 11:45-0500 Diastolic blood pressure 87 mm[Hg] Prem Kuns Other [facility] Other 04-30-2021 11:45-0500 Respiratory rate 18 /min Prem Kuns Other [facility] Other 04-30-2021 11:45-0500 SaO2% (BldA) [Mass fraction] 93 % Prem Kuns Other [facility] Other 04-30-2021 11:45-0500 Systolic blood pressure 136 mm[Hg] Prem Kuns Other [facility] Other 02-28-2021 11:15-0400 Body height 154.94 cm Prem Kuns Other [facility] Other 02-28-2021 11:15-0400 Body mass index (BMI) [Ratio] 29.85 kg/m2 Prem Kuns Other [facility] Other 02-28-2021 11:15-0400 Body weight 71.67 kg Prem Kuns Other [facility] Other 02-28-2021 11:15-0400 Diastolic blood pressure 86 mm[Hg] Prem Kuns Other [facility] Other 02-28-2021 11:15-0400 Respiratory rate 16 /min Prem Kuns Other [facility] Other 02-28-2021 11:15-0400 SaO2% (BldA) [Mass fraction] 97 % Prem Kuns Other [facility] Other 02-28-2021 11:15-0400 Systolic blood pressure 134 mm[Hg] Prem Kuns Other [facility] Other Encounters Encounter Date Encounter Type Care Provider Facility Start: 05-27-2023 End: 05-27-2023 ambulatory Prem Kuns Other [facility] Other Start: 05-27-2023 Telephone encounter Prem Kuns [facility] Start: 03-17-2023 End: 03-17-2023 ambulatory Prem Kuns Other [facility] Other Start: 03-17-2023 Office outpatient visit 25 minutes Prem Kuns [facility] Start: 03-12-2023 End: 03-12-2023 ambulatory Prem Kuns Facility:[facility] Start: 03-12-2023 End: 03-12-2023 ambulatory DO Prem Kuns Work Phone: [facility] Work Phone: Start: 03-12-2023 End: 03-12-2023 Patient encounter procedure DO Prem Kuns Work Phone: [facility] [place] Work Phone: Start: 01-30-2023 End: 01-30-2023 ambulatory Prem Kuns Other [facility] Other Start: 01-30-2023 Telephone encounter Prem Kuns [facility] Start: 11-12-2022 End: 11-12-2022 ambulatory Prem Kuns Other [facility] Other Start: 11-12-2022 Office outpatient visit 25 minutes Prem Kuns [facility] Start: 11-04-2022 End: 11-04-[address] PREM GOEL Facility:[facility] Start: 11-04-2022 Telephone encounter Prem Kuns [facility] Start: 10-30-2022 End: 10-30-2022 ambulatory Prem Kuns Facility:[facility] Start: 10-14-2022 End: 10-14-[address] PREM [...] 05-06-2022 Annual wellness visit Prem arevalo Other [facility] Other Start: 04-29-2022 End: 04-29-2022 ambulatory Prem Goel Facility:[facility] Start: 04-29-2022 End: 04-29-2022 ambulatory DO Prem Goel Work Phone: [facility] Work Phone: Start: 04-29-2022 End: 04-29-2022 Patient encounter procedure DO Prem Goel Work Phone: [facility] [place] Start: 03-06-2022 End: 03-07-[address] KHOA RAMOS . Facility:[facility] Start: 02-27-2022 End: 02-27-2022 ambulatory Prem Goel Other [facility] Other Start: 02-27-2022 Telephone encounter Prem Goel [facility] Start: 02-18-2022 End: 02-18-[address] KHOA RAMOS . Facility:[facility] Start: 01-28-2022 End: 01-28-2022 ambulatory Prem Goel Other [facility] Other Start: 01-28-2022 Office outpatient visit 15 minutes Prem Goel [facility] Start: 01-21-2022 End: 01-22-[address] KHOA RAMOS . Facility:[facility] Start: 12-02-2021 End: 12-02-2021 ambulatory Prem Goel Other [facility] Other Start: 12-02-2021 Telephone encounter Prem Kuns [facility] [place] Start: 11-28-2021 End: 11-28-2021 ambulatory Prem Kuns Other [facility] Other Start: 11-28-2021 Telephone encounter Prem Kuns [facility] [place] Start: 10-02-2021 End: 10-02-2021 ambulatory Prem Kuns Other [facility] Other Start: 10-02-2021 Telephone encounter Prem Kuns [facility] [place] Start: 09-10-2021 End: 09-10-2021 ambulatory Prem Kuns Other [facility] Other Start: 09-10-2021 Telephone encounter Prem Kuns [facility] [place] Start: 08-15-2021 End: 08-15-2021 ambulatory Prem Kuns Other [facility] Other Start: 08-15-2021 Office outpatient visit 25 minutes Prem Kuns [facility] Start: 08-12-2021 End: 08-12-2021 ambulatory Prem Kuns Other [facility] Other Start: 08-12-2021 Telephone encounter Prem Kuns [facility] Start: 06-13-2021 End: 06-13-2021 ambulatory Prem Kuns Other [facility] Other Start: 06-13-2021 Telephone encounter Prem Kuns [facility] Start: 04-30-2021 End: 04-30-2021 ambulatory Prem Kuns Other [facility] Other Start: 04-30-2021 Office outpatient visit 25 minutes Prem Kuns [facility] Start: 02-28-2021 End: 02-28-2021 ambulatory Prem Goel Other [facility] Other Start: 02-28-2021 Patient encounter procedure Prem Raymon [facility] Start: 08-18-2019 Annual wellness visit Prem Ku irina Other [facility] Other Plan of Treatment Date Care Activity Detail Author Glucose measurement estimated from glycated hemoglobin [facility] Immunizations Immunization Date Immunization Notes Care Provider Fa cility 06-13-2021 COVID-19 Vaccine Pfizer - Documentation Purposes Only Prem Raymon Other [facility] Other 07-19-2020 COVID-19 Vaccine Pfizer - Documentation Purposes Only Prem Raymon Other [facility] Other 06-29-2020 COVID-19 Vaccine Pfizer - Documentation Purposes Only Premsaloni Goel Other [facility] Other NEGATED: Highlighted row has not occurred!05-06-2022 influenza, seasonal, injectable Patient Objection Prem Goel Other [facility] Other NEGATED: Highlighted row has not occurred!05-06-2022 Prevnar 20 Patient Objection Prem Goel Other [facility] Other NEGATED: Highlighted row has not occurred!02-17-2019 influenza, seasonal, injectable Patient Objection Prem Goel Other [facility] Other NEGATED: Highlighted row has not occurred!04-07-2017 influenza, seasonal, injectable Patient Objection Premsaloni Cabezass Other [facility] Other Payers Date Payer Category Payer Self-pay [id number] Private Health Insurance [id number] 1937 Unknown [id number] 1937 Unknown [id number] 1937 Unknown [id number] [id number] 1937 Unknown [id number] [id number] 1937 Unknown [id number] [id number] 1937 Unknown [id number] 2.16.840.1.131784.3.579.2.593 1937 Unknown [id number] [id number] 1937 Unknown [id number] [id number] 1937 Unknown [id number] 2.16.840.1.227552.3.579.2.593 1937 Unknown [id number] [id number] 1937 Unknown [id number] [id number] Medicare Medicare [id number] [facility] Health Claims [id number] Unknown [id number] [id number] Unknown [id number] [id number] Unknown [id number] [id number] Social History Date Type Detail Facility Unknown if ever smoked [facility] Other Sex Assigned At Sex Assigned At Bir th [facility] Other Start: 03-28-2020 End: 03-28-2020 Tobacco smoking status NHIS Never smoked tobacco (finding) [facility] Start: 1935 Sex Assigned At Female [facility] Clinical Notes 12-21-2007 to 03-17-2023 Note [...] exercise regimen; we will continue to monitor. [facility] Other 08-25-2023 Evaluation note* Encounter Date Diagnosis Assessment Notes Treatment Notes Treatment Clinical Notes Jan, Hyperlipidemia (ICD-10 - E78.5) [facility] Other 06-07-2023 Evaluation note* Encounter Date Diagnosis Assessment Notes Treatment Notes Treatment Clinical Notes Nov, Bronchopneumonia (ICD-10 - J18.0) [facility] ER records reviewed from both [...] (ICD-10 - R59.0) Noted on imaging from [facility]. I do believe this is likely due to her being ill. She has never smoked. Discussed these findings with the and the patient if symptoms persist we may have pulmonary evaluation but at this time patient appears to be improving [facility] Other 04-27-2023 NoteCONSULTATION CONSULTATION DATE: 10/02/2022 TO: [...] our patients to inform us about any [id number] medications or herbal remedies/nutritional supplements/alternative remedies. 2. [...] treatment options with their primary care provider.[id number] Note CONSULTATION CONSULTATION DATE: 09/04/2022 TO: Dr. [...] mg pills, 1-2 at h.s. as tolerated.[facility] [id number] NoteCONSULTATION CONSULTATION DATE: 07/22/2022 CHIEF COMPLAINT: Right [...] her understand and would like to proceed,.[facility] 05-08-2022 NoteCONSULTATION CONSULTATION DATE: 05/08/2022 HISTORY OF [...] in three months' time unless otherwise indicated.[facility] [id number] NoteCONSULTATION CONSULTATION DATE: 03/06/2022 This is a [...] of care and all questions were answered.[facility] [id number] Evaluation note* Encounter Date Diagnosis Assessment Notes Treatment Notes Treatment Clinical Notes Feb, Hyperlipidemia (ICD-10 - E78.5) [facility] Other 08-23-2022 Evaluation note* Encounter Date Diagnosis [...] E78.5) Jan, Hyperglycemia (ICD-1 0 - R73.9) [facility] Other 08-16-2022 NoteCONSULTATION CONSULTATION DATE: 01/21/2022 CHIEF [...] her understand. CC: Dr. Raphael Escamilla D.O.[facility] [id number] NotePROCEDURE: [employer] Sign[employer] HDXT 1.5 Sagittal T1, T2, STIR [...] and signed by Ralph Figueroa on 10/25/2021 [facility]10[facility] [id number] Evaluation note* Encounter Date Diagnosis Assessment Notes [...] we will attempt to order an MRI. [facility] Other 01-06-2022 Evaluation note* Encounter Date Diagnosis Assessment Notes Treatment Notes Treatment Clinical Notes Jun, Hyperlipidemia (ICD-10 - E78.5) [facility] Other 11-23-2021 Evaluation note* Encounter Date Diagnosis [...] work-up i.e. CAT scan of her abdomen. [facility] Other 09-23-2021 Evaluation note* Encounter Date Diagnosis [...] monitor, a blood work order was provided. [facility] Other 07-15-2008 History general Narrative - Reported* Type Description Date Medical History Colonoscopy 12-21-07 Medical History Stress Test 01-18-[address] Scan Abdomen and Pelvis 06-07 Medical History Mammogram 2-11 Medical History Pap 1-10 Medical History 02/2013 [facility] Medical History 10/13/13-mammogram at [facility] Medical History 12/2015 mammogram Medical History 12/2016 Mammogram Medical History 07/2019 Mammogram Medical History Cardiolite 04/09/20 Surgical History wisdom teeth Hospitalization History child [facility] Other 07-15-2008 History general Narrative - Reported* Type Description Date Medical History Colonoscopy 12-21-07 Medical History Stress Test 01-18-[address] Scan Abdomen and Pelvis 06-07 Medical History Mammogram 2-11 Medical History Pap 1-10 Medical History 02/2013 [facility] Medical History 10/13/13-mammogram at [facility] Medical History 12/2015 mammogram Medical History 12/2016 Mammogram Medical History 07/2019 Mammogram Medical History Cardiolite 04/09/20 Medical History hearing aids Surgical History wisdom teeth Hospitalization History child [facility] Other Evaluation noteNo InformationNort [employer] Other evalujnygi noteNo assessment information available [facility] Work Phone: Summary Purpose Family History [...] section and content) DATE CRE[facility] AUTHOR [facility] DATE CREATED AUTHOR AUTHOR'S ORGANIZ ATION 10/27/2021 [facility] DATE CREATED AUTHOR AUTHOR'S ORGANIZ ATION 10/17/2022 [facility] DATE CREATED AUTHOR AUTHOR'S ORGANIZ ATION 03/15/2023 [facility] REASON FOR VISIT (unrecogniz ed section and [...] BE BASED ON THE PRIMARY CLINICAL RECORDS. [employer] provides no warranty or guarantee of the accuracy or completeness of information in this document.
[2023-08-08 00:20] VITALS: BP 114/69; PULSE 83; RESP 18; TEMP 36.6; O2SAT 93
[2023-08-08 04:50] VITALS: BP 121/72; PULSE 85; RESP 16; TEMP 36.7; O2SAT 90
[2023-08-08 08:00] VITALS: BP 126/73; PULSE 77; RESP 18; TEMP 36.7; O2SAT 90
--- NOTE | 2023-08-08 09:49 | P.DS_ITS ---
DS: Providers Provider Date of admission: 08/07/23 19:24 Primary care physician: PREM GOEL DS: Diagnosis Discharge Diagnosis (1) Anterior dislocation of left shoulder: DS: Summary Hospital Course Hospital Course: Patient had a slip and fall, no loss of consciousness, no palpitations or chest pain as precursor symptoms. Had instant pain in her shoulder, in ER found to have anterior dislocation of the shoulder, this was reduced in ER after multiple medications given. Unable to discharge home. She does feel back to her normal self this morning. However she does recognize she has not been up and ambulating yet. If she is able to ambulate, and coordinate her own care one- handed she can be discharged home in improving condition. Medications to this. Follow-up with PCP next week, follow-up with orthopedics in 2 days Time Spent with Patient Time attestation: Total time spent providing and/or coordinating discharge services: Exam Constitutional Vital Signs, click to edit/add: Last Vital Signs Temp 98.0 F 08/08/23 08:00 Pulse 77 08/08/23 08:00 Resp 18 08/08/23 08:00 BP 126/73 08/08/23 08:00 Pulse Ox 90 L 08/08/23 08:00 O2 Del Method Room Air 08/08/23 08:00 O2 Flow Rate 0 08/07/23 16:24 Documenting provider has reviewed patient's vital signs: yes Common normals: no apparent distress HENMT Common normals: normocephalic (Bruising over left forehead) Respiratory Common normals: normal respiratory effort and no retractions Cardio Common normals: regular rate and regular rhythm GI Common normals: Normal to inspection, nondistended, normoactive bowel sounds present Extremity Common normals: abnormal to inspection (Left arm in sling) DS: Data Data Completed and Pending Labs on day of discharge: Labs from last 24 hours 08/07/23 13:20 WBC 7.5 RBC 5.19 Hgb 15.4 Hct 48.4 H MCV 93.3 MCH 29.7 MCHC 31.8 RDW 12.6 Plt Count 238 MPV 12.5 Neut % (Auto) 43.9 Lymph % (Auto) 45.6 [place] % (Auto) 8.6 Eos % (Auto) 1.1 Baso % (Auto) 0.5 Neut # (Auto) 3.3 Lymph # (Auto) 3.4 [place] # (Auto) 0.7 Eos # (Auto) 0.1 Baso # (Auto) 0.0 Abs Immat Gran (auto) 0.02 Imm/Tot Granulo (auto) 0.3 Sodium 142 Potassium 3.9 Chloride 106 Carbon Dioxide 28.0 Anion Gap 11.9 BUN 20.0 H Creatinine 0.80 Est GFR ( Amer) >60 Est GFR (Non-Af Amer) >60 BUN/Creatinine Ratio 25.0 Glucose 121 H Calcium 9.4 Total Bilirubin 0.4 AST 20 ALT 23 Alkaline Phosphatase 118 H Total Protein 7.2 Albumin 3.4 Globulin 3.8 Albumin/Globulin Ratio 0.9 Discharge Plan Discharge Disposition: Home, Self-Care Condition: Fair Discharge Medications: New tramadol 50 mg tablet 50 mg PO Q6H PRN (Reason: pain) 5 Days Qty: 20 0RF Continued ezetimibe 10 mg tablet 10 mg PO QAM aspirin 81 mg capsule 81 mg PO QDAY acetaminophen [Arthritis Pain Relief (acetam)] 650 mg tablet extended release 650 mg PO .QD albuterol sulfate 90 mcg/actuation HFA aerosol inhaler 2 inh inhalation Q4H PRN (Reason: shortness of breath or wheezing) Qty: 8.5 0RF Patient Instructions: Tramadol (By mouth), Fall Prevention (DC) Forms: Portal Instructions Follow Up Appointments: Schedule a follow up with your Dr Andrea in 7 days from [phone]
--- NOTE | 2023-08-08 09:49 | P.HP_ITS ---
H&P: HPI History of Present Illness Chief complaint: FALL LEFT SHOULDER DISLOCATION RESOLVED CHI Narrative: Patient was walking into a restaurant, had a slip and fall, injuring her shoulder she did not strike her head, she does have some bruising, in ER found a dislocated shoulder and that was reduced. Difficulty ambulating after medications for pain control. Observed overnight I saw the patient up on the floor she was more alert, oriented, had not been out of bed however though. Review of Systems ROS Status of ROS 10 or more systems reviewed and unremark able except as noted in history and below PFSH PFSH Medical History Low back pain ?M54.50 - Low back pain, unspecified (ICD-10) Hearing deficit ?H91.90 - Unspecified hearing loss, unspecified ear (ICD-10) High cholesterol ?E78.00 - Pure hypercholesterolemia, unspecified (ICD-10) Surgical History H/O breast biopsy ?Z98.890 - Other specified postprocedural states (ICD-10) Family History (Updated 08/07/23 @ 20:32 by Mary Lou Blandon) Brother Family history of CHF (congestive heart failure) Social History (Updated 08/07/23 @ 20:34 by Mary Lou Blandon) Within the past year, how often did you have a drink containing alcohol: monthly or less Within the past year, how many standard drinks containing alcohol did you have on a typical day: 1 or 2 Within the past year, how often did you have six or more drinks on one occasion: less than monthly Total score: 1 Score interpretation: A score less than 3 is consistent with normal alcohol consumption. 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 Known occupational exposures/hazards: No Highest level of school completed/degree received: high school graduate Do you want help with school or training: No Are you now , , , , never or living with a partner: In a typical week, how many times do you talk on the telephone with family, friends, or neighbors: 3 or more times per week How often do you get together with friends or relatives: 3 or more times per week How often do you attend buddhist or jewish services: 4 or more times per year Do you belong to any clubs or organizations such as buddhist groups unions, fraternal or athletic groups, or school groups: no Total score: 3 Score interpretation: A score of greater than or equal to 2 indicates the lowest level of social isolation. Little interest or pleasure in doing things: several days Feeling down, depressed, or hopeless: several days Feel stressed/tense/nervous/anxious/difficulty sleeping: only a little Due to disability, difficulty making decisions: No Do you think of yourself as: straight/heterosexual Gender Identity: female Meds Home Medications and Allergies Home Medications Medication Instructions Recorded Confirmed Type aspirin 81 mg capsule 81 mg PO QDAY 11/06/22 08/07/23 History ezetimibe 10 mg tablet 10 mg PO QAM 11/06/22 08/07/23 History albuterol sulfate 90 mcg/actuation 2 inh inhalation Q4H PRN shortness 11/09/22 08/07/23 Rx aerosol inhaler of breath or wheezing #8.5 grams acetaminophen 650 mg 650 mg PO .QD 11/14/22 08/07/23 History tablet,extended release (Arthritis Pain Relief (acetaminophen) ER) tramadol 50 mg tablet 50 mg PO Q6H PRN pain 5 days #20 08/08/23 Rx tabs Allergies Allergy/AdvReac Type Severity Reaction Status Date / Time No Known Drug Allergies Allergy Verified 12/16/22 10:12 Exam Constitutional Vital Signs, click to edit/add: Last Vital Signs Temp 98.0 F 08/08/23 08:00 Pulse 77 08/08/23 08:00 Resp 18 08/08/23 08:00 BP 126/73 08/08/23 08:00 Pulse Ox 90 L 08/08/23 08:00 O2 Del Method Room Air 08/08/23 08:00 O2 Flow Rate 0 08/07/23 16:24 Documenting provider has reviewed patient's vital signs: yes Common normals: no apparent distress HENMT Common normals: normocephalic (Bruising over left forehead) Respiratory Common normals: normal respiratory effort and no retractions Cardio Common normals: regular rate and regular rhythm GI Common normals: Normal to inspection, nondistended, normoactive bowel sounds present Extremity Common normals: abnormal to inspection (Left arm in sling) Results Labs Labs: Short CBC 08/07/23 Range/Units 13:20 WBC 7.5 (4.0-11.0) 10^3/uL Hgb 15.4 (12.0-16.0) g/dL Hct 48.4 H (36.0-48.0) % Plt Count 238 (150-450) 10^3/uL BMP 08/07/23 13:20 Sodium 142 Potassium 3.9 Chloride 106 Carbon Dioxide 28.0 BUN 20.0 H Creatinine 0.80 Glucose 121 H Calcium 9.4 Liver Function 08/07/23 Range/Units 13:20 Total Bilirubin 0.4 (0.2-1.0) mg/dL AST 20 (15-37) U/L ALT 23 (14-59) U/L Alkaline Phosphatase 118 H (46-116) U/L Albumin 3.4 (3.4-5.0) g/dL Assessment and Plan Assessment and Plan (1) Anterior dislocation of left shoulder: (2) Contusion of knee, left: Plan Patient had a slip and fall, no loss of consciousness, no palpitations or chest pain as precursor symptoms. Had instant pain in her shoulder, in ER found to have anterior dislocation of the shoulder, this was reduced in ER after multiple medications given. Unable to discharge home. She does feel back to her normal self this morning. However she does recognize she has not been up and ambulating yet. If she is able to ambulate, and coordinate her own care one- handed she can be discharged home in improving condition. Medications to this. Follow-up with PCP next week, follow-up with orthopedics in 2 days Hypertension on admission-improved Patient was in observation status will likely maintain that. Likely discharged home later today
[2023-08-08 11:56] VITALS: BP 132/82; PULSE 74; RESP 22; TEMP 36.7; O2SAT 90
--- NOTE | 2023-08-10 15:25 | CM.DCFOLLOWU ---
Person spoke with: Mary How are you feeling? Better- still some pain How is your pain? Much better Did you understand your discharge instructions? Yes Do you have any questions about your discharge instructions? No Were you given any prescriptions at discharge? Yes Were you able to get your prescriptions filled? Yes Do you understand how to take your medications as ordered? Yes Do you have any questions about your follow up appointment and do you plan to keep your follow up appointment? Called there to schedule f/u today Is there anything else that you would like to discuss? Pt having constipation- discussed over the counter stool softeners Questions/Comments/Concerns/Other:
--- NOTE | 2023-08-11 15:47 | CM.DCFOLLOWU ---
Person spoke with: patient and pt's How are you feeling? well How is your pain? no pain Did you understand your discharge instructions? yes Do you have any questions about your discharge instructions? no Were you given any prescriptions at discharge? yes Were you able to get your prescriptions filled? yes Do you understand how to take your medications as ordered? yes Do you have any questions about your follow up appointment and do you plan to keep your follow up appointment? no questions, has follow up with Dr. Ennis on 08/12/23 Is there anything else that you would like to discuss? no Questions/Comments/Concerns/Other: spoke to someone yesterday in regards to her constipation. Bought prune juice for her
== END 2023-08-08 12:50 | disposition home or self-care (01) ==
LOC: ER 16:28 → MS 19:27
PROVIDERS: Admitting Provider Family Medicine; Emergency Provider Emergency Medicine; PCP Family Medicine; Visit Provider Family Medicine
DX: S43.015A Anterior dislocation of left humerus, initial encounter (principal); S80.02XA Contusion of left knee, initial encounter; S00.83XA Contusion of other part of head, initial encounter; S09.8XXA Other specified injuries of head, initial encounter; W18.09XA Striking against other object with subsequent fall, initial encounter; Z79.82 Long term (current) use of aspirin; Z79.899 Other long term (current) drug therapy; H91.90 Unspecified hearing loss, unspecified ear; E78.00 Pure hypercholesterolemia, unspecified; Z98.890 Other specified postprocedural states
CPT/HCPCS: 23650; 36415; 70450; 73030; 73060; 73562; 80053; 85025; 93005; 96374; 96375; 96376; 99152; 99285; G0378

== ENCOUNTER 2023-08-27 09:43 | Outpatient (OUT) | payer MEDICARE, SELFPAY ==
--- NOTE | 2023-08-27 09:55 | PM.CN ---
Consult Note: HPI Data of Consult Patient: known to practice within the last 3 years Requesting Physician: Mercy Pak NP Primary Care Provider: PREM GOEL Consult Narrative Reason for consult: f/u Narrative: Mary King is a pleasant 87 year old female who presents for evaluation of chronic right buttock and leg pain. Patient reporting ache intermittently. Pain today 3/10 worse with standing walking activity rolling over, improved with rest. Mild relief from aspirin, moderate relief from tylenol arthritis and ibuprofen. Patient reports PT was no benefit. She did benefit from diclofenac 50mg BID PRN in the past, unsure why she stopped. Patient had a recent fall with injury, dislocated left shoulder, current wearing a sling and following with orthopedics. NABILA 28%, reporting low back/right buttock pain well controlled since last visit. Patient was given tramadol 50mg Q6hrs for pain and found benefit but noticed drowsiness. cc:: CC: Mercy Pak NP Review of Systems ROS Status of ROS 10 or more systems reviewed and unremarkable except as noted in history and below Musculoskeletal Reports: back pain PFSH PFSH Medical History Low back pain ?M54.50 - Low back pain, unspecified (ICD-10) Hearing deficit ?H91.90 - Unspecified hearing loss, unspecified ear (ICD-10) High cholesterol ?E78.00 - Pure hypercholesterolemia, unspecified (ICD-10) Surgical History H/O breast biopsy ?Z98.890 - Other specified postprocedural states (ICD-10) Family History Brother Family history of CHF (congestive heart failure) Social History Within the past year, how often did you have a drink containing alcohol: monthly or less Within the past year, how many standard drinks containing alcohol did you have on a typical day: 1 or 2 Within the past year, how often did you have six or more drinks on one occasion: less than monthly Total score: 1 Score interpretation: A score less than 3 is consistent with normal alcohol consumption. 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 Known occupational exposures/hazards: No Highest level of school completed/degree received: high school graduate Do you want help with school or training: No Are you now , , , , never or living with a partner: In a typical week, how many times do you talk on the telephone with family, friends, or neighbors: 3 or more times per week How often do you get together with friends or relatives: 3 or more times per week How often do you attend judaism or sabianism services: 4 or more times per year Do you belong to any clubs or organizations such as judaism groups unions, [employer] or athletic groups, or school groups: no Total score: 3 Score interpretation: A score of greater than or equal to 2 indicates the lowest level of social isolation. Little interest or pleasure in doing things: several days Feeling down, depressed, or hopeless: several days Feel stressed/tense/nervous/anxious/difficulty sleeping: only a little Due to disability, difficulty making decisions: No Do you think of yourself as: straight/heterosexual Gender Identity: female Meds Home Medications and Allergies Home Medications ?Medication ?Instructions ?Recorded ?Confirmed ?Type aspirin 81 mg capsule 81 mg PO QDAY 11/06/22 08/07/23 History ezetimibe 10 mg tablet 10 mg PO QAM 11/06/22 08/07/23 History albuterol sulfate 90 mcg/actuation 2 inh inhalation Q4H PRN shortness 11/09/22 08/07/23 Rx aerosol inhaler of breath or wheezing #8.5 grams acetaminophen 650 mg 650 mg PO .QD 11/14/22 08/07/23 History tablet,extended release (Arthritis Pain Relief (acetaminophen) ER) tramadol 50 mg tablet 50 mg PO Q6H PRN pain 5 days #20 08/08/23 Rx tabs Allergies Allergy/AdvReac Type Severity Reaction Status Date / Time No Known Drug Allergies Allergy Verified 12/16/22 10:12 Exam Constitutional Documenting provider has reviewed patient's vital signs: yes Common normals: no apparent distress, oriented x3, healthy appearing, alert and well nourished General appearance: cooperative Nutritional appearance: overweight HENMT Common normals: normocephalic, hearing grossly normal bilaterally and moist oral mucous membranes Head and scalp: normocephalic Eye Common normals: PERRL Pupil: PERRL Neck & C-Spine Common normals: full ROM General: normal visual inspection Chest Common normals: inspection of chest normal Respiratory Common normals: normal respiratory effort, no retractions and no use of accessory muscles Back & Pelvis Thoracic spine/upper back: normal to inspection and thoracic ROM normal Lumbar spine/lower back: normal to inspection, lumbar ROM normal and straight leg raise negative bilaterally Sacroiliac joints: SI joints normal Other: mild tenderness over right gluteus medius, mild pain with deep palpation Extremity Common normals: normal to inspection and full ROM Neuro Common normals: oriented x3, CN's II-XII intact bilaterally, moves all extremities, no focal motor deficits, no sensory deficits noted and deep tendon reflexes 2+ bilaterally Sensorium/orientation: alert Gait (neuro): normal gait Motor exam: strength 5/5 throughout and no movement abnormalities noted Psych Common normals: mental status grossly normal, thought process normal, cooperative, affect normal, speech normal and activity/motor behavior normal Speech: normal speech Thought process: normal thought process Results Additional Findings Additional findings: If on a controlled substance or opioids, I have checked an [place] report on this patient and there are no aberrancies noted in the prescribing history.??If on a controlled substance or opioid a drug screen was completed and reviewed within the last year, and if there has not been a drug screen completed we ordered one today to monitor higher risk, state monitored pain medication use. As part of providing excellent, safe, comprehensive care, the following was completed at our patient's visit: 1. A medication reconciliation and review to ensure accurate knowledge of current/active medications, including asking our patients to inform us about any [id number] medications or herbal remedies/nutritional supplements/alternative remedies. 2. A review to specifically ensure our patients have had annual screening for screening for depression, screening for tobacco use, and screening for unhealthy alcohol use. For concerning screenings had a discussion with the patient, provided patient education, and recommended follow-up with primary care provider when appropriate. If patient noted with a risk of falling, they received education on strength, gait, and balance training to prevent future risk of falling. Assessment and Plan Assessment and Plan (1) Piriformis syndrome of right side: (2) Chronic pain syndrome: (3) Lumbar spondylosis: (4) Muscle spasm: Plan continue ibuprofen PRN continue tylenol arthritis PRN continue HEP as tolerated continue f/u with orthopedics f/u 3 months, sooner if needed
--- OUTSIDE RECORDS SUMMARY | 2023-08-27 10:05 | XMS_ITS | CCD ---
Author Organization [facility] Care Team Providers Care Stubber Name Role Phone Prem Goel Unavailable DO Prem Goel Primary Care Provider [phone] DO Prem Goel Attending Provider [phone] LAKSHMIPATHY ., NARENDRANATH Admitting Eda vailable RAYMON, DR AMARO Primary Care Unavailable LAKSHMIPATHY ., NARENDRANATH Attending Eda vailable LAKSHMIPATHY ., NARENDBASSAMATH Consulting Eda vailable HALKER .TAMEKA Consulting Unavailable RAYMON, DR AMARO Primary Care Unavailable LAKSHMIPATHY ., NARFRANCISCAATH Attending Eda vailable LAKSHMIPATHY ., ERISATH Consulting Eda vailable LAKSHMIPATHY ., NARFRANCISCAATH Admitting Eda vailable RAYMON, DR AMARO Primary Care Unavailable LAKSHMIPATHY ., NARENDBASSAMATH Attending Eda vailable LAKSHMIPATHY ., NARENDRANATH Consulting Eda vailable LAKSHMIPATHY ., ERISATH Admitting Eda vailable RAYMON, DR AMARO Primary Care Unavailable LAKSHMIPATHY ., NARENDRANATH Admitting Eda vailable LAKSHMIPATHY ., NARFRANCISCAATH Attending Eda vailable PARAMJIT, DR KHAN Admitting Unavailable RAYMON, DR AMARO Primary Care Unavailable RAMOS, DR KHAN Attending Unavailable RAMOS ., DR KHOA Hernandez Consulting Unavailable RAYMON, DR AMARO Primary Care Unavailable RAMOS ., DR KHOA Hernandez Admitting Unavailable RAMOS ., DR KHOA Hernandez Attending Unavailable RAMOS ., DR KHOA Hernandez Consulting Unavailable GARCIA .AIXA Consulting Unavailable RAYMON, DR AMARO Primary Care Unavailable RAMOS ., DR KHOA Hernandez Admitting Unavailable RAMOS ., DR KHOA Hernandez Attending Unavailable RAMOS ., DR KHOA Hernandez Admitting Unavailable RAYMON, DR AMARO Primary Care Unavailable GARCIA ., AIXA Consulting Unavailable PARAMJIT ., DR KHOA Hernandez Attending Unavailable PARAMJIT ., DR KHOA Hernandez Admitting Unavailable MICHAELS, DR AMARO Primary Care Unavailable RAMOS ., DR KHOA Hernandez Attending Unavailable RAMOS ., DR KHOA Hernandez Consulting Unavailable RAMOS ., DR KHOA Hernandez Admitting Unavailable MICHAELS, DR AMARO Primary Care Unavailable RAMOS ., DR KHOA Hernandez Attending Unavailable RAMOS ., DR KHOA Hernandez Consulting Unavailable KUNS, DR AMARO Consulting Unavailable KUNS, DR AMARO Primary Care Unavailable LAKSHMIPATHY ., NARENDRANATH Admitting Eda vailable LAKSHMIPATHY ., NARENDBASSAMATH Attending Eda vailable LAKSHMIPATHY ., NARFRANCISCAATH Consulting Eda vailable Kuns, DO Prem Primary Care Provider Kuneddie, DO Amaro Attending Provider Kuns, Prem Admitting Unavailable Kuns, [...] nee ded Orally every 8 hrs Active [id number] actuat albuterol 0.09 mg/actuat metered dose [...] (17 sources) Lymphocytosis; Translations: [Lymphocytosis (symptomatic)] Onset: 02-28-2021 Resolved: 02-28-2021 Chronic Disorders of lipid metabolism [...] Range Facility A1C with Estimated Average G [facility] 03-12-2023 Glucose [Mass/Vol] 126 mg/dL Normal [facility] Comment on above: Order Comment: Reaso n for Exam Hyperlipidemia Result Comment: PERF ORMED BY: [place] [address] PATHOLOGIST ATHLETIC TEAM PHYSICIAN BEV TALBERT M.D. Performed By: #### A 1C [facility] eA, LIPID, TSH3, CBC, CMP #### [facility] [address] [place] [address] HbA1c (Bld) [Mass fraction] 6.0 % High 4.3-5.6 [facility] Comment on above: Order Comment: Reaso n for Exam Hyperlipidemia Result Comment: Incr eased risk for diabetes: 5.7 - 6.4 diabetes: >6.4 glycemic control for adults with diabetes: <7.0 Performed By: #### A 1C WT eA, LIPID, TSH3, CBC, CMP #### [facility] [address] [place] [id number] [facility] Alanine aminotransferase [En zymatic activity/volume] in Serum or PlasmaOrdered By: Prem Goel on 03-12-2023 ALT [Catalytic activity/Vol] 11 U/L 7-52 [facility] Albumin [Mass/volume] in Ser um or Plasma by Bromocresol green (BCG) dye binding methoOrdered By: Prem Goel on 03-12-2023 Albumin BCG dye [Mass/Vol] 3.9 g/dL 3.5-5.7 [facility] Alkaline phosphatase [Enzyma tic activity/volume] in Serum or PlasmaOrdered By: Prem Goel on 03-12-2023 ALP [Catalytic activity/Vol] 89 U/L 34-104 [facility] Aspartate aminotransferase [ Enzymatic activity/volume] in Serum or PlasmaOrdered By: Prem Goel on 03-12-2023 AST [Catalytic activity/Vol] 15 U/L 13-39 [facility] Basophils Auto (Bld) [#/Vol] Ordered By: Prem Goel on 03-12-2023 Basophils (Bld) [#/Vol] 0.0 10*3/uL 0.0-0.2 [facility] Basophils/100 WBC Auto (Bld) Ordered By: Prem Goel on 03-12-2023 Basophils/100 WBC (Bld) 0.7 % . [facility] Bilirubin.total [Mass/volume ] in Serum or PlasmaOrdered By: Prem Goel on 03-12-2023 Bilirubin [Mass/Vol] 0.6 mg/dL 0.3-1.0 [facility] Calcium [Mass/volume] in Ser um or PlasmaOrdered By: Prem Goel on 03-12-2023 Calcium [Mass/Vol] 9.4 mg/dL 8.6-10.3 [facility] Carbon dioxide, total [Moles /volume] in Serum or PlasmaOrdered By: Prem Goel on 03-12-2023 CO2 [Moles/Vol] 28.2 mmol/L 21.0-31.0 [facility] Chloride [Moles/volume] in S dede or PlasmaOrdered By: Prem Goel on 03-12-2023 Chloride [Moles/Vol] 107 mmol/L 98-107 [facility] Cholesterol [Mass/volume] in Serum or PlasmaOrdered By: Prem Goel on 03-12-2023 Cholesterol [Mass/Vol] 228 mg/dL 140-200 [facility] Comment on above: Chol less than 200 m g/dl low riskChol 201-239 mg/dl borderline riskChol 240 mg/dl and greater high risk Cholesterol in LDL Calc [Mas s/Vol]Ordered By: Prem Goel on 03-12-2023 Cholesterol in LDL [Mass/Vol] 146 mg/dL 0-100 [facility] Comment on above: LDL ATP III CLASSIFI CATIONLDL less than 100 mg/dL OptimalLDL 100-129 mg/dL Near or above optimalLDL 130-159 mg/dL Borderline highLDL 160-189 mg/dL HighLDL greater than 189 mg/dL Very high Cholesterol in VLDL Calc [Ma ss/Vol]Ordered By: Prem Goel on 03-12-2023 Cholesterol in VLDL [Mass/Vol] 15 mg/dL [facility] Complete Blood Count Auto Di ffon 03-12-2023 Basophils (Bld) [#/Vol] 0.0 10*3/uL Normal 0.0-0.2 [facility] Comment on above: Order Comment: Reaso n for Exam Hyperlipidemia Result Comment: PERF ORMED BY: [place] [address] PATHOLOGIST ATHLETIC TEAM PHYSICIAN BEV TALBERT M.D. Performed By: #### C BC #### [facility] [address] [place] [id number] [place] Basophils/100 WBC (Bld) 0.7 % Normal . [facility] Comment on above: Order Comment: Reaso n for Exam Hyperlipidemia Performed By: #### C BC #### [facility] [address] [place] [id number] [place] Eosinophils (Bld) [#/Vol] 0.1 10*3/uL Normal 0.0-0.45 [facility] Comment on above: Order Comment: Reaso n for Exam Hyperlipidemia Performed By: #### C BC #### [place] [address] [place] Eosinophils/100 WBC (Bld) 2.3 % Normal . [facility] Comment on above: Order Comment: Reaso n for Exam Hyperlipidemia Performed By: #### C BC #### [address] Erythrocyte distribution width (RBC) [Ratio] 12.9 % Normal 11.9-15.3 [facility] Comment on above: Order Comment: Reaso n for Exam Hyperlipidemia Performed By: #### C BC #### [address] Hematocrit (Bld) [Volume fraction] 45.2 % Normal 34.0-46.4 [facility] Comment on above: Order Comment: Reaso n for Exam Hyperlipidemia Performed By: #### C BC #### [address] Hemoglobin (Bld) [Mass/Vol] 14.9 g/dL Normal 11.8-15.4 [facility] Comment on above: Order Comment: Reaso n for Exam Hyperlipidemia Performed By: #### C BC #### [place] [address] [place] Lymphocytes (Bld) [#/Vol] 2.6 10*3/uL Normal 1.00-4.8 [facility] Comment on above: Order Comment: Reaso n for Exam Hyperlipidemia Performed By: #### C BC #### [place] [address] [place] Lymphocytes/100 WBC (Bld) 42.3 % Normal . [facility] Comment on above: Order Comment: Reaso n for Exam Hyperlipidemia Performed By: #### C BC #### [place] [address] [place] MCH (RBC) [Entitic mass] 29.8 pg Normal 24.7-34.3 [facility] Comment on above: Order Comment: Reaso n for Exam Hyperlipidemia Performed By: #### C BC #### [place] [address] [place] MCV (RBC) [Entitic vol] 90.5 fL Normal 80-100 [facility] Comment on above: Order Comment: Reaso n for Exam Hyperlipidemia Performed By: #### C BC #### [facility] [address] Mean Corpuscular HGB Conc 33.0 g/dL Normal 32.0-35.0 [facility] Comment on above: Order Comment: Reaso n for Exam Hyperlipidemia Performed By: #### C BC #### [facility] [address] [place] [id number] [place] Monocytes (Bld) [#/Vol] 0.6 10*3/uL Normal 0.0-0.8 [facility] Comment on above: Order Comment: Reaso n for Exam Hyperlipidemia Performed By: #### C BC #### [facility] [address] Monocytes/100 WBC (Bld) 9.1 % Normal . [facility] Comment on above: Order Comment: Reaso n for Exam Hyperlipidemia Performed By: #### C BC #### [facility] [address] [place] [address] [place] Neutrophils (Bld) [#/Vol] 2.8 10*3/uL Normal 1.8-7.7 [facility] Comment on above: Order Comment: Reaso n for Exam Hyperlipidemia Performed By: #### C BC #### [place] [address] [place] Neutrophils/100 WBC (Bld) 45.6 % Normal . [facility] Comment on above: Order Comment: Reaso n for Exam Hyperlipidemia Performed By: #### C BC #### [facility] [address] [place] [id number] [place] NRBC% 0.1 /100{WBC} Normal 0-0.5 [facility] Comment on above: Order Comment: Reaso n for Exam Hyperlipidemia Performed By: #### C BC #### [facility] [address] [place] [id number] [place] Platelet mean volume (Bld) [Entitic vol] 10.2 fL Normal 6.3-10.7 [facility] Comment on above: Order Comment: Reaso n for Exam Hyperlipidemia Performed By: #### C BC #### [facility] [address] Platelets (Bld) [#/Vol] 201 10*3/uL Normal 150-450 [facility] Comment on above: Order Comment: Reaso n for Exam Hyperlipidemia Performed By: #### C BC #### [facility] [address] RBC (Bld) [#/Vol] 4.99 10*6/uL Normal 3.60-5.00 [facility] Comment on above: Order Comment: Reaso n for Exam Hyperlipidemia Performed By: #### C BC #### [facility] [address] WBC (Bld) [#/Vol] 6.1 10*3/uL Normal 3.8-11.6 [facility] Comment on above: Order Comment: Reaso n for Exam Hyperlipidemia Performed By: #### C BC #### [address] Comprehensive Metabolic Pane [place] 03-12-2023 Albumin [Mass/Vol] 3.9 g/dL Normal 3.5-5.7 [facility] Comment on above: Order Comment: Reaso n for Exam Hyperlipidemia Performed By: #### A 1C WTH eA, LIPID, TSH3, CBC, CMP #### [facility] [address] Albumin/Globulin [Mass ratio] 1.8 {ratio} Normal [facility] Comment on above: Order Comment: Reaso n for Exam Hyperlipidemia Performed By: #### A 1C WTH eA, LIPID, TSH3, CBC, CMP #### [facility] [address] ALP [Catalytic activity/Vol] 89 U/L Normal 34-104 [facility] Comment on above: Order Comment: Reaso n for Exam Hyperlipidemia Performed By: #### A 1C WTH eA, LIPID, TSH3, CBC, CMP #### [facility] [address] [place] [address] [place] ALT [Catalytic activity/Vol] 11 U/L Normal 7-52 [facility] Comment on above: Order Comment: Reaso n for Exam Hyperlipidemia Performed By: #### A 1C WTH eA, LIPID, TSH3, CBC, CMP #### [facility] [address] [place] [id number] [facility] Anion gap [Moles/Vol] 10.1 mmol/L Normal 6.0-15.0 [facility] Comment on above: Order Comment: Reaso n for Exam Hyperlipidemia Performed By: #### A 1C WTH eA, LIPID, TSH3, CBC, CMP #### [facility] [address] [place] [id number] [facility] AST [Catalytic activity/Vol] 15 U/L Normal 13-39 [facility] Comment on above: Order Comment: Reaso n for Exam Hyperlipidemia Performed By: #### A 1C WTH eA, LIPID, TSH3, CBC, CMP #### [facility] [address] Bilirubin [Mass/Vol] 0.6 mg/dL Normal 0.3-1.0 [facility] Comment on above: Order Comment: Reaso n for Exam Hyperlipidemia Performed By: #### A 1C WT eA, LIPID, TSH3, CBC, CMP #### [facility] [address] Calcium [Mass/Vol] 9.4 mg/dL Normal 8.6-10.3 [facility] Comment on above: Order Comment: Reaso n for Exam Hyperlipidemia Performed By: #### A 1C WTH eA, LIPID, TSH3, CBC, CMP #### [facility] [address] [place] [id number] [place] Chloride [Moles/Vol] 107 mmol/L Normal 98-107 [facility] Comment on above: Order Comment: Reaso n for Exam Hyperlipidemia Performed By: #### A 1C WTH eA, LIPID, TSH3, CBC, CMP #### [facility] [address] [place] [id number] [place] CO2 [Moles/Vol] 28.2 mmol/L Normal 21.0-31.0 [facility] Comment on above: Order Comment: Reaso n for Exam Hyperlipidemia Performed By: #### A 1C WTH eA, LIPID, TSH3, CBC, CMP #### [facility] [address] Creatinine [Mass/Vol] 0.77 mg/dL Normal 0.60-1.[address] [facility] Comment on above: Order Comment: Reaso n for Exam Hyperlipidemia Performed By: #### A 1C WTH eA, LIPID, TSH3, CBC, CMP #### [facility] [address] GFR/1.73 sq M.predicted MDRD (S/P/Bld) [Vol rate/Area] mL/min/{1.73_m2} [facility] Comment on above: Order Comment: Reaso n for Exam Hyperlipidemia Performed By: #### A 1C WTH eA, LIPID, TSH3, CBC, CMP #### [facility] [address] Globulin (S) [Mass/Vol] 2.2 g/dL Normal [facility] Comment on above: Order Comment: Reaso n for Exam Hyperlipidemia Performed By: #### A 1C WTH eA, LIPID, TSH3, CBC, CMP #### [facility] [address] Glucose [Mass/Vol] 96 mg/dL Normal 70-100 [facility] Comment on above: Order Comment: Reaso n for Exam Hyperlipidemia Result Comment: [place] Glucose Reference Range is dependent on time and content of last meal. Glucose of more than 200 mg/dL in a nonstressed, ambulatory subject supports the diagnosis of Diabetes Mellitus. ADA recommended reference range Performed By: #### A 1C WTH eA, LIPID, TSH3, CBC, CMP #### [facility] [address] Potassium [Moles/Vol] 4.3 mmol/L Normal 3.5-5.[address] [facility] Comment on above: Order Comment: Reaso n for Exam Hyperlipidemia Performed By: #### A 1C WTH eA, LIPID, TSH3, CBC, CMP #### [facility] [address] Protein [Mass/Vol] 6.1 g/dL Low 6.4-8.9 [facility] Comment on above: Order Comment: Reaso n for Exam Hyperlipidemia Performed By: #### A 1C WTH eA, LIPID, TSH3, CBC, CMP #### [facility] [address] Sodium [Moles/Vol] 141 mmol/L Normal 136-145 [facility] Comment on above: Order Comment: Reaso n for Exam Hyperlipidemia Performed By: #### A 1C WTH eA, LIPID, TSH3, CBC, CMP #### [facility] [address] Urea nitrogen [Mass/Vol] 18 mg/dL Normal 7-25 [facility] Comment on above: Order Comment: Reaso n for Exam Hyperlipidemia Performed By: #### A 1C WTH eA, LIPID, TSH3, CBC, CMP #### [facility] [address] Creatinine [Mass/volume] in Serum or PlasmaOrdered By: Prem Goel on 03-12-2023 Creatinine [Mass/Vol] 0.77 mg/dL 0.60-1.[address] [facility] Eosinophils Auto (Bld) [#/Vo l]Ordered By: Prem Goel on 03-12-2023 Eosinophils (Bld) [#/Vol] 0.1 10*3/uL 0.0-0.45 [facility] Eosinophils/100 WBC Auto (Bl d)Ordered By: Prem Goel on 03-12-2023 Eosinophils/100 WBC (Bld) 2.3 % . [facility] Erythrocyte distribution wid th Auto (RBC) [Ratio]Ordered By: Prem Goel on 03-12-2023 Erythrocyte distribution width (RBC) [Ratio] 12.9 % 11.9-15.3 [facility] Globulin Calc (S) [Mass/Vol] Ordered By: Prem Goel on 03-12-2023 Globulin (S) [Mass/Vol] 2.2 g/dL [facility] Glucose [Mass/volume] in Ser um or PlasmaOrdered By: Prem Goel on 03-12-2023 Glucose [Mass/Vol] 96 mg/dL 70-100 [facility] Comment on above: ADA recommended refe rence rangeRandom Glucose Reference Range is dependent on time and content of last meal. Glucose of more than 200 mg/dL in a nonstressed, ambulatory subject supports the diagnosis of Diabetes Mellitus. Hematocrit Auto (Bld) [Volum e fraction]Ordered By: Prem Goel on 03-12-2023 Hematocrit (Bld) [Volume fraction] 45.2 % 34.0-46.4 [facility] Hemoglobin [Mass/volume] in BloodOrdered By: Prem Goel on 03-12-2023 Hemoglobin (Bld) [Mass/Vol] 14.9 g/dL 11.8-15.4 [facility] Leukocytes [#/volume] correc guillermina for nucleated erythrocytes in Blood by Automated counOrdered By: Prem Goel on 03-12-2023 WBC corrected for nucl RBC Auto (Bld) [#/Vol] 6.1 10*3/uL 3.8-11.6 [facility] Lipid Panelon 03-12-2023 Cholesterol [Mass/Vol] 228 mg/dL High 140-200 [facility] Comment on above: Order Comment: Reaso n for Exam Hyperlipidemia Result Comment: Chol less than 200 mg/dl low risk Chol 201-239 mg/dl borderline risk Chol 240 mg/dl and greater high risk Performed By: #### A 1C WTH eA, LIPID, TSH3, CBC, CMP #### [facility] [address] [place] [id number] [place] Cholesterol in HDL [Mass/Vol] 66 mg/dL Normal 23-92 [facility] Comment on above: Order Comment: Reaso n for Exam Hyperlipidemia Result Comment: HDL CHOL ATP-III CLASSIFICATION Cardiovascular Risk HDL > or equal to 60 mg/dL LOW HDL < 40 mg/dL HIGH Performed By: #### A 1C WTH eA, LIPID, TSH3, CBC, CMP #### [facility] [address] [place] [address] [facility] Cholesterol.total/Araceli sterol in HDL [Mass ratio] 3.5 {ratio} Normal <5.0 [facility] Comment on above: Order Comment: Reaso n for Exam Hyperlipidemia Performed By: #### A 1C WT eA, LIPID, TSH3, CBC, CMP #### [facility] [address] LDL Cholesterol,Calculated 146 mg/dL High 0-100 [facility] Comment on above: Order Comment: Reaso n for Exam Hyperlipidemia Result Comment: LDL ATP III CLASSIFICATION LDL less than 100 mg/dL Optimal LDL 100-129 mg/dL Near or above optimal LDL 130-159 mg/dL Borderline high LDL 160-189 mg/dL High LDL greater than 189 mg/dL Very high Performed By: #### A 1C WT eA, LIPID, TSH3, CBC, CMP #### [facility] [address] Triglyceride w/Reflex 78 mg/dL Normal 0-[address] [facility] Comment on above: Order Comment: [...] LIPID, TSH3, CBC, CMP #### [facility] [address] VLDL CHOLESTEROL 15 mg/dL Normal [facility] Comment on above: Order Comment: Reaso n for Exam Hyperlipidemia Performed By: #### A 1C WTH eA, LIPID, TSH3, CBC, CMP #### [facility] [address] Lymphocytes Auto (Bld) [#/Vo l]Ordered By: Prem Goel on 03-12-2023 Lymphocytes (Bld) [#/Vol] 2.6 10*3/uL 1.00-4.8 [facility] Lymphocytes/100 WBC Auto (Bl d)Ordered By: Prem Goel on 03-12-2023 Lymphocytes/100 WBC (Bld) 42.3 % . [facility] MCH Auto (RBC) [Entitic mass ]Ordered By: Prem Goel on 03-12-2023 MCH (RBC) [Entitic mass] 29.8 pg 24.7-34.3 [facility] MCHC Auto (RBC) [Mass/Vol]Or dered By: Prem Goel on 03-12-2023 MCHC (RBC) [Mass/Vol] 33.0 g/dL 32.0-35.[address] [facility] MCV Auto (RBC) [Entitic vol] Ordered By: Prem Goel on 03-12-2023 MCV (RBC) [Entitic vol] 90.5 fL 80-100 [facility] Monocytes Auto (Bld) [#/Vol] Ordered By: Prem Goel on 03-12-2023 Monocytes (Bld) [#/Vol] 0.6 10*3/uL 0.0-0.8 [facility] Monocytes/100 WBC Auto (Bld) Ordered By: Prem Goel on 03-12-2023 Monocytes/100 WBC (Bld) 9.1 % . [facility] Neutrophils Auto (Bld) [#/Vo l]Ordered By: Prem Goel on 03-12-2023 Neutrophils (Bld) [#/Vol] 2.8 10*3/uL 1.8-7.7 [facility] Neutrophils/100 WBC Auto (Bl d)Ordered By: Prem Goel on 03-12-2023 Neutrophils/100 WBC (Bld) 45.6 % . [facility] No Panel InformationOrdered By: Prem Goel on 03-12-2023 Estimated GFR (CKD-EPI) > 60.0 mL/Min [facility] Creatinine Clearance (Chem N/A [facility] Nucleated erythrocytes [Pres ence] in Blood by Automated countOrdered By: Prem Goel on 03-12-2023 Nucleated RBC Auto Ql (Bld) 0.1 /100{WBC} 0-0.5 [facility] Platelet mean volume Auto (B ld) [Entitic vol]Ordered By: Prem Goel on 03-12-2023 Platelet mean volume (Bld) [Entitic vol] 10.2 fL 6.3-10.7 [facility] Platelets Auto (Bld) [#/Vol] Ordered By: Prem Goel on 03-12-2023 Platelets (Bld) [#/Vol] 201 10*3/uL 150-450 [facility] Potassium [Moles/volume] in Serum or PlasmaOrdered By: Prem Goel on 03-12-2023 Potassium [Moles/Vol] 4.3 mmol/L 3.5-5.[address] [facility] Protein [Mass/volume] in Ser um or PlasmaOrdered By: Prem Goel on 03-12-2023 Protein [Mass/Vol] 6.1 g/dL 6.4-8.9 [facility] RBC Auto (Bld) [#/Vol]Ordere d By: Prem Goel on 03-12-2023 RBC (Bld) [#/Vol] 4.99 10*6/uL 3.60-5.00 [facility] Serum or plasma albumin/glob ulin mass ratioOrdered By: Prem Goel on 03-12-2023 Albumin/Globulin [Mass ratio] 1.8 {ratio} [facility] Serum or plasma anion gap de terminationOrdered By: Prem Goel on 03-12-2023 Anion gap [Moles/Vol] 10.1 mmol/L 6.0-15.0 [facility] Serum or plasma high density lipoprotein (HDL) cholesterol measurementOrdered By: Prem Goel on 03-12-2023 Cholesterol in HDL [Mass/Vol] 66 mg/dL 23-92 [facility] Comment on above: HDL CHOL ATP-III CLA SSIFICATION Cardiovascular RiskHDL > or equal to 60 mg/dL LOWHDL < 40 mg/dL HIGH Serum or plasma total choles terol/high density lipoprotein (HDL) cholesterol mass ratOrdered By: Prem Goel on 03-12-2023 Cholesterol.total/Araceli sterol in HDL [Mass ratio] 3.5 {ratio} <5.0 [facility] Sodium [Moles/volume] in Ser um or PlasmaOrdered By: Prem Goel on 03-12-2023 Sodium [Moles/Vol] 141 mmol/L 136-145 [facility] Thyroid Stimulating Hormoneo n 03-12-2023 TSH Qn 1.91 m[IU]/L Normal 0.45-5.33 [facility] Comment on above: Order Comment: Reaso n for Exam Hyperlipidemia Result Comment: PERF ORMED BY: [place] [address] PATHOLOGIST ATHLETIC TEAM PHYSICIAN BEV TALBERT M.D. Performed By: #### A 1C WTH eA, LIPID, TSH3, CBC, CMP #### [facility] [address] [place] [id number] [facility] Thyrotropin [Units/volume] i n Serum or PlasmaOrdered By: Prem Goel on 03-12-2023 TSH Qn 1.91 m[IU]/L 0.45-5.33 [facility] [facility] Triglyceride [Mass/volume] i n Serum or PlasmaOrdered By: Prem Goel on 03-12-2023 Triglyceride [Mass/Vol] 78 mg/dL 0-149 [facility] Comment on above: TRIG ATP III CLASSIF ICATIONTRIG less than 150 mg/dL NormalTRIG 150-199 mg/dL Borderline highTRIG 200-500 mg/dL High TRIG greater than 500 mg/dL Very highStandard traceable to the Center for Disease Conrtrol and Prevention (CDC) test method. Urea nitrogen [Mass/volume] in Serum or PlasmaOrdered By: Prem Goel on 03-12-2023 Urea nitrogen [Mass/Vol] 18 mg/dL 12-30 [facility] WBC Auto (Bld) [#/Vol]Ordere d By: Prem Goel on 03-12-2023 WBC (Bld) [#/Vol] 6.1 10*3/uL 3.8-11.6 [facility] A1C with Estimated Average G luon 10-30-2022 Glucose [Mass/Vol] 128 mg/dL Normal [facility] Comment on above: Order Comment: Reaso n for Exam Hyperlipidemia Result Comment: PERF ORMED BY: [place] [address] PATHOLOGIST ATHLETIC TEAM PHYSICIAN BEV TALBERT M.D. Performed By: #### A 1C WTH eA, LIPID, TSH3, CBC, CMP #### [facility] [address] [place], [place] [id number] [facility] HbA1c (Bld) [Mass fraction] 6.1 % High 4.3-5.6 [facility] Comment on above: Order Comment: Reaso n for Exam Hyperlipidemia Result Comment: Incr eased risk for diabetes: 5.7 - 6.4 diabetes: >6.4 glycemic control for adults with diabetes: <7.0 Performed By: #### A 1C WTH eA, LIPID, TSH3, CBC, CMP #### [facility] [address] Complete Blood Count Auto Di ffon 10-30-2022 Basophils (Bld) [#/Vol] 0.0 10*3/uL Normal 0.0-0.2 [facility] Comment on above: Order Comment: Reaso n for Exam Hyperlipidemia Result Comment: PERF ORMED BY: [place] [address] PATHOLOGIST ATHLETIC TEAM PHYSICIAN BEV TALBERT M.D. Performed By: #### C BC #### [address] Basophils/100 WBC (Bld) 0.6 % Normal . [facility] Comment on above: Order Comment: Reaso n for Exam Hyperlipidemia Performed By: #### C BC #### [address] Eosinophils (Bld) [#/Vol] 0.5 10*3/uL High 0.0-0.45 [facility] Comment on above: Order Comment: Reaso n for Exam Hyperlipidemia Performed By: #### C BC #### [address] Eosinophils/100 WBC (Bld) 8.1 % Normal . [facility] Comment on above: Order Comment: Reaso n for Exam Hyperlipidemia Performed By: #### C BC #### [address] Erythrocyte distribution width (RBC) [Ratio] 13.8 % Normal 11.9-15.3 [facility] Comment on above: Order Comment: Reaso n for Exam Hyperlipidemia Performed By: #### C BC #### [address] Hematocrit (Bld) [Volume fraction] 43.9 % Normal 34.0-46.4 [facility] Comment on above: Order Comment: Reaso n for Exam Hyperlipidemia Performed By: #### C BC #### [address] Hemoglobin (Bld) [Mass/Vol] 14.6 g/dL Normal 11.8-15.4 [facility] Comment on above: Order Comment: Reaso n for Exam Hyperlipidemia Performed By: #### C BC #### [address] Lymphocytes (Bld) [#/Vol] 1.5 10*3/uL Normal 1.00-4.8 [facility] Comment on above: Order Comment: Reaso n for Exam Hyperlipidemia Performed By: #### C BC #### [address] Lymphocytes/100 WBC (Bld) 27.1 % Normal . [facility] Comment on above: Order Comment: Reaso n for Exam Hyperlipidemia Performed By: #### C BC #### [address] MCH (RBC) [Entitic mass] 30.0 pg Normal 24.7-34.3 [facility] Comment on above: Order Comment: Reaso n for Exam Hyperlipidemia Performed By: #### C BC #### [address] MCV (RBC) [Entitic vol] 90.4 fL Normal 80-100 [facility] Comment on above: Order Comment: Reaso n for Exam Hyperlipidemia Performed By: #### C BC #### [address] Mean Corpuscular HGB Conc 33.3 g/dL Normal 32.0-35.0 [facility] Comment on above: Order Comment: Reaso n for Exam Hyperlipidemia Performed By: #### C BC #### [place] [address] [place] Monocytes (Bld) [#/Vol] 0.6 10*3/uL Normal 0.0-0.8 [facility] Comment on above: Order Comment: Reaso n for Exam Hyperlipidemia Performed By: #### C BC #### [facility] [address] [place] [id number] [place] Monocytes/100 WBC (Bld) 10.7 % Normal . [facility] Comment on above: Order Comment: Reaso n for Exam Hyperlipidemia Performed By: #### C BC #### [facility] [address] [place] [id number] [place] Neutrophils (Bld) [#/Vol] 3.0 10*3/uL Normal 1.8-7.7 [facility] Comment on above: Order Comment: Reaso n for Exam Hyperlipidemia Performed By: #### C BC #### [facility] [address] [place] [id number] [place] Neutrophils/100 WBC (Bld) 53.5 % Normal . [facility] Comment on above: Order Comment: Reaso n for Exam Hyperlipidemia Performed By: #### C BC #### [facility] [address] [place] [id number] [place] NRBC% 0.1 /100{WBC} Normal 0-0.5 [facility] Comment on above: Order Comment: Reaso n for Exam Hyperlipidemia Performed By: #### C BC #### [facility] [address] [place] [id number] [place] Platelet mean volume (Bld) [Entitic vol] 9.7 fL Normal 6.3-10.7 [facility] Comment on above: Order Comment: Reaso n for Exam Hyperlipidemia Performed By: #### C BC #### [facility] [address] [place] [id number] [place] Platelets (Bld) [#/Vol] 196 10*3/uL Normal 150-450 [facility] Comment on above: Order Comment: Reaso n for Exam Hyperlipidemia Performed By: #### C BC #### [facility] [address] [place] [id number] [place] RBC (Bld) [#/Vol] 4.86 10*6/uL Normal 3.60-5.00 [facility] Comment on above: Order Comment: Reaso n for Exam Hyperlipidemia Performed By: #### C BC #### [facility] [address] WBC (Bld) [#/Vol] 5.7 10*3/uL Normal 3.8-11.6 [facility] Comment on above: Order Comment: Reaso n for Exam Hyperlipidemia Performed By: #### C BC #### [facility] [address] Comprehensive Metabolic Pane [place] 10-30-2022 Albumin [Mass/Vol] 3.6 g/dL Normal 3.5-5.7 [facility] Comment on above: Order Comment: Reaso n for Exam Hyperlipidemia Performed By: #### T SH3, CMP, LIPID #### [facility] [address] [place] [address] Albumin/Globulin [Mass ratio] 1.2 {ratio} Normal [facility] Comment on above: Order Comment: Reaso n for Exam Hyperlipidemia Performed By: #### T SH3, CMP, LIPID #### [facility] [address] [place] [address] ALP [Catalytic activity/Vol] 102 U/L Normal 34-104 [facility] Comment on above: Order Comment: Reaso n for Exam Hyperlipidemia Performed By: #### T SH3, CMP, LIPID #### [facility] [address] [place] [address] ALT [Catalytic activity/Vol] 14 U/L Normal 7-52 [facility] Comment on above: Order Comment: Reaso n for Exam Hyperlipidemia Performed By: #### T SH3, CMP, LIPID #### [facility] [address] Anion gap [Moles/Vol] 9.0 mmol/L Normal 6.0-15.[address] [facility] Comment on above: Order Comment: Reaso n for Exam Hyperlipidemia Performed By: #### T SH3, CMP, LIPID #### [facility] [address] AST [Catalytic activity/Vol] 18 U/L Normal 13-39 [facility] Comment on above: Order Comment: Reaso n for Exam Hyperlipidemia Performed By: #### T SH3, CMP, LIPID #### [facility] [address] Bilirubin [Mass/Vol] 0.5 mg/dL Normal 0.3-1.0 [facility] Comment on above: Order Comment: Reaso n for Exam Hyperlipidemia Performed By: #### T SH3, CMP, LIPID #### [facility] [address] Calcium [Mass/Vol] 9.0 mg/dL Normal 8.6-10.3 [facility] Comment on above: Order Comment: Reaso n for Exam Hyperlipidemia Performed By: #### T SH3, CMP, LIPID #### [facility] [address] Chloride [Moles/Vol] 106 mmol/L Normal 98-107 [facility] Comment on above: Order Comment: Reaso n for Exam Hyperlipidemia Performed By: #### T SH3, CMP, LIPID #### [facility] [address] CO2 [Moles/Vol] 30.8 mmol/L Normal 21.0-31.0 [facility] Comment on above: Order Comment: Reaso n for Exam Hyperlipidemia Performed By: #### T SH3, CMP, LIPID #### [facility] [address] [place] [id number] [place] Creatinine [Mass/Vol] 0.75 mg/dL Normal 0.60-1.[address] [facility] Comment on above: Order Comment: Reaso n for Exam Hyperlipidemia Performed By: #### T SH3, CMP, LIPID #### [facility] [address] [place] [id number] [place] GFR/1.73 sq M.predicted MDRD (S/P/Bld) [Vol rate/Area] mL/min/{1.73_m2} Normal [facility] Comment on above: Order Comment: Reaso n for Exam Hyperlipidemia Performed By: #### T SH3, CMP, LIPID #### [facility] [address] Globulin (S) [Mass/Vol] 2.9 g/dL Normal [facility] Comment on above: Order Comment: Reaso n for Exam Hyperlipidemia Performed By: #### T SH3, CMP, LIPID #### [facility] [address] Glucose [Mass/Vol] 92 mg/dL Normal 70-100 [facility] Comment on above: Order Comment: Reaso n for Exam Hyperlipidemia Result Comment: [facility] Glucose Reference Range is dependent on time and content of last meal. Glucose of more than 200 mg/dL in a nonstressed, ambulatory subject supports the diagnosis of Diabetes Mellitus. ADA recommended reference range Performed By: #### T SH3, CMP, LIPID #### [facility] [address] Potassium [Moles/Vol] 4.8 mmol/L Normal 3.5-5.[address] [facility] Comment on above: Order Comment: Reaso n for Exam Hyperlipidemia Performed By: #### T SH3, CMP, LIPID #### [facility] [address] [place] [address] Protein [Mass/Vol] 6.5 g/dL Normal 6.4-8.9 [facility] Comment on above: Order Comment: Reaso n for Exam Hyperlipidemia Performed By: #### T SH3, CMP, LIPID #### [facility] [address] [place] [address] Sodium [Moles/Vol] 141 mmol/L Normal 136-145 [facility] Comment on above: Order Comment: Reaso n for Exam Hyperlipidemia Performed By: #### T SH3, CMP, LIPID #### [facility] [address] [place] [id number] [place] Urea nitrogen [Mass/Vol] 18 mg/dL Normal 7-25 [facility] Comment on above: Order Comment: Reaso n for Exam Hyperlipidemia Performed By: #### T SH3, CMP, LIPID #### [facility] [address] Lipid Panelon 10-30-2022 Cholesterol [Mass/Vol] 218 mg/dL High 140-200 [facility] Comment on above: Order Comment: Reaso n for Exam Hyperlipidemia Result Comment: Chol less than 200 mg/dl low risk Chol 201-239 mg/dl borderline risk Chol 240 mg/dl and greater high risk Performed By: #### T SH3, CMP, LIPID #### [facility] [address] [place] [id number] [place] Cholesterol in HDL [Mass/Vol] 51 mg/dL Normal 35-85 [facility] Comment on above: Order Comment: Reaso n for Exam Hyperlipidemia Result Comment: HDL CHOL ATP-III CLASSIFICATION Cardiovascular Risk HDL > or equal to 60 mg/dL LOW HDL < 40 mg/dL HIGH Performed By: #### T SH3, CMP, LIPID #### [facility] [address] [place] [id number] [place] Cholesterol.total/Araceli sterol in HDL [Mass ratio] 4.3 {ratio} Normal <5.0 [facility] Comment on above: Order Comment: Reaso n for Exam Hyperlipidemia Performed By: #### T SH3, CMP, LIPID #### [facility] [address] [place] [id number] [facility] LDL Cholesterol,Calculated 151 mg/dL High 0-100 [facility] Comment on above: Order Comment: Reaso n for Exam Hyperlipidemia Result Comment: LDL ATP III CLASSIFICATION LDL less than 100 mg/dL Optimal LDL 100-129 mg/dL Near or above optimal LDL 130-159 mg/dL Borderline high LDL 160-189 mg/dL High LDL greater than 189 mg/dL Very high Performed By: #### T SH3, CMP, LIPID #### [facility] [address] [place] [id number] [place] Triglyceride w/Reflex 78 mg/dL Normal 0-[address] [facility] Comment on above: Order Comment: Reaso n for Exam Hyperlipidemia Result Comment: TRIG ATP III CLASSIFICATION TRIG less than 150 mg/dL Normal TRIG 150-199 mg/dL Borderline high TRIG 200-500 mg/dL High TRIG greater than 500 mg/dL Very high Standard traceable to the Center for Disease Conrtrol and Prevention (CDC) test method. Performed By: #### T SH3, CMP, LIPID #### [facility] [address] [place] [id number] [place] VLDL CHOLESTEROL 15 mg/dL Normal [facility] Comment on above: Order Comment: Reaso n for Exam Hyperlipidemia Performed By: #### T SH3, CMP, LIPID #### [facility] [address] [place] [address] Thyroid Stimulating Hormoneo n 10-30-2022 TSH Qn 1.72 m[IU]/L Normal 0.45-5.33 [facility] Comment on above: Order Comment: Reaso n for Exam Hyperlipidemia Result Comment: PERF ORMED BY: [place] [address] PATHOLOGIST ATHLETIC TEAM PHYSICIAN BEV TALBERT M.D. Performed By: #### T SH3, CMP, LIPID #### [address] A1C with Estimated Average G luon 04-29-2022 Glucose [Mass/Vol] 126 mg/dL Normal [facility] Comment on above: Order Comment: Reaso n for Exam Hyperglycemia Result Comment: PERF ORMED BY: [place] [address] PATHOLOGIST ATHLETIC TEAM PHYSICIAN BEV TALBERT M.D. Performed By: #### A 1C WTH eA, LIPID, TSH3, CBC, CMP #### [address] HbA1c (Bld) [Mass fraction] 6.0 % High 4.3-5.6 [facility] Comment on above: Order Comment: Reaso n for Exam Hyperglycemia Result Comment: Incr eased risk for diabetes: 5.7 - 6.4 diabetes: >6.4 glycemic control for adults with diabetes: <7.0 Performed By: #### A 1C WTH eA, LIPID, TSH3, CBC, CMP #### [facility] [address] [place] [address] Albumin [Mass/volume] in Ser um or PlasmaOrdered By: Prem Goel on 04-29-2022 Albumin [Mass/Vol] 3.4 g/dL 3.2-5.5 [facility] Basophils Auto (Bld) [#/Vol] Ordered By: Prem Goel on 04-29-2022 Basophils (Bld) [#/Vol] 0.0 10*3/uL 0.0-0.2 [facility] Basophils/100 WBC Auto (Bld) Ordered By: Prem Goel on 04-29-2022 Basophils/100 WBC (Bld) 0.3 % . [facility] Cholesterol [Mass/volume] in Serum or PlasmaOrdered By: Prem Goel on 04-29-2022 Cholesterol [Mass/Vol] 196 mg/dL 140-200 [facility] Comment on above: Chol less than 200 m g/dl low riskChol 201-239 mg/dl borderline riskChol 240 mg/dl and greater high risk Cholesterol in LDL Calc [Mas s/Vol]Ordered By: Prem Goel on 04-29-2022 Cholesterol in LDL [Mass/Vol] 109 mg/dL 0-100 [facility] Comment on above: LDL ATP III CLASSIFI CATIONLDL less than 100 mg/dL OptimalLDL 100-129 mg/dL Near or above optimalLDL 130-159 mg/dL Borderline highLDL 160-189 mg/dL HighLDL greater than 189 mg/dL Very high Cholesterol in VLDL Calc [Ma ss/Vol]Ordered By: Prem Goel on 04-29-2022 Cholesterol in VLDL [Mass/Vol] 10 mg/dL [facility] Complete Blood Count Auto Di ffon 04-29-2022 Basophils (Bld) [#/Vol] 0.0 10*3/uL Normal 0.0-0.2 [facility] Comment on above: Order Comment: Reaso n for Exam Hyperlipidemia Result Comment: PERF ORMED BY: [place] [address] PATHOLOGIST ATHLETIC TEAM PHYSICIAN BEV TALBERT M.D. Performed By: #### A 1C WT eA, LIPID, TSH3, CBC, CMP #### [facility] [address] Basophils/100 WBC (Bld) 0.3 % Normal . [facility] Comment on above: Order Comment: Reaso n for Exam Hyperlipidemia Performed By: #### A 1C WT eA, LIPID, TSH3, CBC, CMP #### [facility] [address] Eosinophils (Bld) [#/Vol] 0.1 10*3/uL Normal 0.0-0.45 [facility] Comment on above: Order Comment: Reaso n for Exam Hyperlipidemia Performed By: #### A 1C WTH eA, LIPID, TSH3, CBC, CMP #### [address] Eosinophils/100 WBC (Bld) 0.5 % Normal . [facility] Comment on above: Order Comment: Reaso n for Exam Hyperlipidemia Performed By: #### A 1C WTH eA, LIPID, TSH3, CBC, CMP #### [address] Erythrocyte distribution width (RBC) [Ratio] 13.4 % Normal 11.9-15.3 [facility] Comment on above: Order Comment: Reaso n for Exam Hyperlipidemia Performed By: #### A 1C WTH eA, LIPID, TSH3, CBC, CMP #### [address] Hematocrit (Bld) [Volume fraction] 46.2 % Normal 34.0-46.4 [facility] Comment on above: Order Comment: Reaso n for Exam Hyperlipidemia Performed By: #### A 1C WTH eA, LIPID, TSH3, CBC, CMP #### [address] Hemoglobin (Bld) [Mass/Vol] 14.9 g/dL Normal 11.8-15.4 [facility] Comment on above: Order Comment: Reaso n for Exam Hyperlipidemia Performed By: #### A 1C WTH eA, LIPID, TSH3, CBC, CMP #### [address] Lymphocytes (Bld) [#/Vol] 1.9 10*3/uL Normal 1.00-4.8 [facility] Comment on above: Order Comment: Reaso n for Exam Hyperlipidemia Performed By: #### A 1C WTH eA, LIPID, TSH3, CBC, CMP #### [place] [address] [place] Lymphocytes/100 WBC (Bld) 17.7 % Normal . [facility] Comment on above: Order Comment: Reaso n for Exam Hyperlipidemia Performed By: #### A 1C WT eA, LIPID, TSH3, CBC, CMP #### [facility] [address] MCH (RBC) [Entitic mass] 30.0 pg Normal 24.7-34.3 [facility] Comment on above: Order Comment: Reaso n for Exam Hyperlipidemia Performed By: #### A 1C WT eA, LIPID, TSH3, CBC, CMP #### [facility] [address] MCV (RBC) [Entitic vol] 93.4 fL Normal 80-100 [facility] Comment on above: Order Comment: Reaso n for Exam Hyperlipidemia Performed By: #### A 1C [facility] eA, LIPID, TSH3, CBC, CMP #### [facility] [address] Mean Corpuscular HGB Conc 32.1 g/dL Normal 32.0-35.0 [facility] Comment on above: Order Comment: Reaso n for Exam Hyperlipidemia Performed By: #### A 1C [facility] eA, LIPID, TSH3, CBC, CMP #### [facility] [address] [place] [id number] [place] Monocytes (Bld) [#/Vol] 1.1 10*3/uL High 0.0-0.8 [facility] Comment on above: Order Comment: Reaso n for Exam Hyperlipidemia Performed By: #### A 1C WT eA, LIPID, TSH3, CBC, CMP #### [facility] [address] [place] [id number] [place] Monocytes/100 WBC (Bld) 10.4 % Normal . [facility] Comment on above: Order Comment: Reaso n for Exam Hyperlipidemia Performed By: #### A 1C WT eA, LIPID, TSH3, CBC, CMP #### [facility] [address] [place] [id number] [place] Neutrophils (Bld) [#/Vol] 7.6 10*3/uL Normal 1.8-7.7 [facility] Comment on above: Order Comment: Reaso n for Exam Hyperlipidemia Performed By: #### A 1C WT eA, LIPID, TSH3, CBC, CMP #### [facility] [address] [place] [id number] [place] Neutrophils/100 WBC (Bld) 71.1 % Normal . [facility] Comment on above: Order Comment: Reaso n for Exam Hyperlipidemia Performed By: #### A 1C WT eA, LIPID, TSH3, CBC, CMP #### [facility] [address] [place] [id number] [place] Nucleated RBC/100 WBC (Bld) [Ratio] 0.0 % Normal 0-0.5 [facility] Comment on above: Order Comment: Reaso n for Exam Hyperlipidemia Performed By: #### A 1C WT eA, LIPID, TSH3, CBC, CMP #### [facility] [address] [place] [id number] [place] Platelet mean volume (Bld) [Entitic vol] 10.2 fL Normal 6.3-10.7 [facility] Comment on above: Order Comment: Reaso n for Exam Hyperlipidemia Performed By: #### A 1C [facility] eA, LIPID, TSH3, CBC, CMP #### [facility] [address] [place] [id number] [place] Platelets (Bld) [#/Vol] 238 10*3/uL Normal 150-450 [facility] Comment on above: Order Comment: Reaso n for Exam Hyperlipidemia Performed By: #### A 1C WT eA, LIPID, TSH3, CBC, CMP #### [facility] [address] [place] [id number] [place] RBC (Bld) [#/Vol] 4.95 10*6/uL Normal 3.60-5.00 [facility] Comment on above: Order Comment: Reaso n for Exam Hyperlipidemia Performed By: #### A 1C WTH eA, LIPID, TSH3, CBC, CMP #### [facility] [address] [place] [id number] [place] WBC (Bld) [#/Vol] 10.7 10*3/uL Normal 4.5-11.0 [facility] Comment on above: Order Comment: Reaso n for Exam Hyperlipidemia Performed By: #### A 1C WTH eA, LIPID, TSH3, CBC, CMP #### [facility] [address] Comprehensive Metabolic Pane [place] 04-29-2022 Albumin [Mass/Vol] 3.4 g/dL Normal 3.2-5.5 [facility] Comment on above: Order Comment: Reaso n for Exam Hyperlipidemia Performed By: #### A 1C WTH eA, LIPID, TSH3, CBC, CMP #### [facility] [address] Albumin/Globulin [Mass ratio] 1.0 {ratio} Normal [facility] Comment on above: Order Comment: Reaso n for Exam Hyperlipidemia Performed By: #### A 1C WTH eA, LIPID, TSH3, CBC, CMP #### [facility] [address] ALP [Catalytic activity/Vol] 100 U/L High 32-92 [facility] Comment on above: Order Comment: Reaso n for Exam Hyperlipidemia Performed By: #### A 1C WTH eA, LIPID, TSH3, CBC, CMP #### [facility] [address] ALT [Catalytic activity/Vol] 18 U/L Normal 10-60 [facility] Comment on above: Order Comment: Reaso n for Exam Hyperlipidemia Performed By: #### A 1C WTH eA, LIPID, TSH3, CBC, CMP #### [facility] [address] Anion gap [Moles/Vol] 10.5 mmol/L Normal 6.0-15.0 [facility] Comment on above: Order Comment: Reaso n for Exam Hyperlipidemia Performed By: #### A 1C WTH eA, LIPID, TSH3, CBC, CMP #### [facility] [address] AST [Catalytic activity/Vol] 19 U/L Normal 10-42 [facility] Comment on above: Order Comment: Reaso n for Exam Hyperlipidemia Performed By: #### A 1C WTH eA, LIPID, TSH3, CBC, CMP #### [facility] [address] [place] [id number] [place] Bilirubin [Mass/Vol] 0.8 mg/dL Normal 0.3-1.2 [facility] Comment on above: Order Comment: Reaso n for Exam Hyperlipidemia Performed By: #### A 1C WTH eA, LIPID, TSH3, CBC, CMP #### [facility] [address] Calcium [Mass/Vol] 9.2 mg/dL Normal 8.2-10.2 [facility] Comment on above: Order Comment: Reaso n for Exam Hyperlipidemia Performed By: #### A 1C WTH eA, LIPID, TSH3, CBC, CMP #### [facility] [address] Chloride [Moles/Vol] 102 mmol/L Normal 95-114 [facility] Comment on above: Order Comment: Reaso n for Exam Hyperlipidemia Performed By: #### A 1C WTH eA, LIPID, TSH3, CBC, CMP #### [facility] [address] CO2 [Moles/Vol] 28.5 mmol/L Normal 22.0-30.0 [facility] Comment on above: Order Comment: Reaso n for Exam Hyperlipidemia Performed By: #### A 1C WTH eA, LIPID, TSH3, CBC, CMP #### [facility] [address] [place] [address] [place] Creatinine [Mass/Vol] 0.80 mg/dL Normal 0.44-1.[address] [facility] Comment on above: Order Comment: Reaso n for Exam Hyperlipidemia Performed By: #### A 1C WTH eA, LIPID, TSH3, CBC, CMP #### [facility] [address] [place] [address] [place] Estimated GFR ( Reshma > 60 Normal [facility] Comment on above: Order Comment: Reaso n for Exam Hyperlipidemia Result Comment: GFR estimated reference range: According to KDOQI guidelines, <60 ml/min/1.73m2 is sufficient to diagnose a patient with chronic kidney disease. Performed By: #### A 1C WTH eA, LIPID, TSH3, CBC, CMP #### [facility] [address] Estimated GFR (Non- Am > 60 Normal [facility] Comment on above: Order Comment: Reaso n for Exam Hyperlipidemia Performed By: #### A 1C WTH eA, LIPID, TSH3, CBC, CMP #### [facility] [address] Globulin (S) [Mass/Vol] 3.3 g/dL Normal [facility] Comment on above: Order Comment: Reaso n for Exam Hyperlipidemia Performed By: #### A 1C WTH eA, LIPID, TSH3, CBC, CMP #### [facility] [address] Glucose [Mass/Vol] 111 mg/dL High 70-100 [facility] Comment on above: Order Comment: Reaso n for Exam Hyperlipidemia Result Comment: [place] Glucose Reference Range is dependent on time and content of last meal. Glucose of more than 200 mg/dL in a nonstressed, ambulatory subject supports the diagnosis of Diabetes Mellitus. ADA recommended reference range Performed By: #### A 1C WTH eA, LIPID, TSH3, CBC, CMP #### [facility] [address] Potassium [Moles/Vol] 4.0 mmol/L Normal 3.5-5.[address] [facility] Comment on above: Order Comment: Reaso n for Exam Hyperlipidemia Performed By: #### A 1C WTH eA, LIPID, TSH3, CBC, CMP #### [facility] [address] Protein [Mass/Vol] 6.7 g/dL Normal 6.1-7.9 [facility] Comment on above: Order Comment: Reaso n for Exam Hyperlipidemia Performed By: #### A 1C WTH eA, LIPID, TSH3, CBC, CMP #### [facility] [address] Sodium [Moles/Vol] 137 mmol/L Normal 136-146 [facility] Comment on above: Order Comment: Reaso n for Exam Hyperlipidemia Performed By: #### A 1C WT eA, LIPID, TSH3, CBC, CMP #### [facility] [address] [place] [address] [place] Urea nitrogen [Mass/Vol] 14 mg/dL Normal - [facility] Comment on above: Order Comment: Reaso n for Exam Hyperlipidemia Performed By: #### A 1C WT eA, LIPID, TSH3, CBC, CMP #### [facility] [address] [place] [address] [place] Creatinine and Glomerular fi ltration rate.predicted panel (S/P/Bld)Ordered By: Prem Goel on 04-29-2022 Creatinine [Mass/Vol] 0.80 mg/dL 0.44-1.[address] [facility] Eosinophils Auto (Bld) [#/Vo l]Ordered By: Prem Goel on 04-29-2022 Eosinophils (Bld) [#/Vol] 0.1 10*3/uL 0.0-0.45 [facility] Eosinophils/100 WBC Auto (Bl d)Ordered By: Prem Goel on 04-29-2022 Eosinophils/100 WBC (Bld) 0.5 % . [facility] Erythrocyte distribution wid th Auto (RBC) [Ratio]Ordered By: Prem Goel on 04-29-2022 Erythrocyte distribution width (RBC) [Ratio] 13.4 % 11.9-15.3 [facility] Estimated glomerular filtrat ion rate (GFR) non- AmericanOrdered By: Prem Goel on 04-29-2022 GFR/1.73 sq M.predicted among non-blacks MDRD (S/P/Bld) [Vol rate/Area] > 60 mL/Min [facility] Globulin Calc (S) [Mass/Vol] Ordered By: Prem Goel on 04-29-2022 Globulin (S) [Mass/Vol] 3.3 g/dL F [facility] Hematocrit Auto (Bld) [Volum e fraction]Ordered By: Prem Goel on 04-29-2022 Hematocrit (Bld) [Volume fraction] 46.2 % 34.0-46.4 [facility] Hemoglobin [Mass/volume] in BloodOrdered By: Prem Goel on 04-29-2022 Hemoglobin (Bld) [Mass/Vol] 14.9 g/dL 11.8-15.4 [facility] Laboratory - Hematology and Cell countsOrdered By: Prem Goel on 04-29-2022 Nucleated RBC/100 WBC (Bld) [Ratio] 0.0 % 0-0.5 [facility] Leukocytes [#/volume] in Blo od by Automated countOrdered By: Prem Goel on 04-29-2022 WBC (Bld) [#/Vol] 10.7 10*3/uL 4.5-11.0 [facility] Lipid Panelon 04-29-2022 Cholesterol [Mass/Vol] 196 mg/dL Normal 140-200 [facility] Comment on above: Order Comment: Reaso n for Exam Hyperlipidemia Result Comment: Chol less than 200 mg/dl low risk Chol 201-239 mg/dl borderline risk Chol 240 mg/dl and greater high risk Performed By: #### A 1C WT eA, LIPID, TSH3, CBC, CMP #### [facility] [address] [place] [id number] [place] Cholesterol in HDL [Mass/Vol] 76 mg/dL Normal 35-85 [facility] Comment on above: Order Comment: Reaso n for Exam Hyperlipidemia Result Comment: HDL CHOL ATP-III CLASSIFICATION Cardiovascular Risk HDL > or equal to 60 mg/dL LOW HDL < 40 mg/dL HIGH Performed By: #### A 1C WT eA, LIPID, TSH3, CBC, CMP #### [facility] [address] [place] [address] [place] Cholesterol.total/Araceli sterol in HDL [Mass ratio] 2.6 {ratio} Normal <5.0 [facility] Comment on above: Order Comment: Reaso n for Exam Hyperlipidemia Performed By: #### A 1C WTH eA, LIPID, TSH3, CBC, CMP #### [facility] [address] [place] [id number] [place] LDL Cholesterol,Calculated 109 mg/dL High 0-100 [facility] Comment on above: Order Comment: Reaso n for Exam Hyperlipidemia Result Comment: LDL ATP III CLASSIFICATION LDL less than 100 mg/dL Optimal LDL 100-129 mg/dL Near or above optimal LDL 130-159 mg/dL Borderline high LDL 160-189 mg/dL High LDL greater than 189 mg/dL Very high Performed By: #### A 1C [facility] eA, LIPID, TSH3, CBC, CMP #### [facility] [address] [place] [address] [place] Triglyceride w/Reflex 53 mg/dL Normal 35-[address] [facility] Comment on above: Order Comment: [...] WT eA, LIPID, TSH3, CBC, CMP #### [facility] [address] [place] [address] [place] VLDL CHOLESTEROL 10 mg/dL Normal [facility] Comment on above: Order Comment: Reaso n for Exam Hyperlipidemia Performed By: #### A 1C WT eA, LIPID, TSH3, CBC, CMP #### [facility] [address] Lymphocytes Auto (Bld) [#/Vo l]Ordered By: Prem Goel on 04-29-2022 Lymphocytes (Bld) [#/Vol] 1.9 10*3/uL 1.00-4.8 [facility] Lymphocytes/100 WBC Auto (Bl d)Ordered By: Prem Goel on 04-29-2022 Lymphocytes/100 WBC (Bld) 17.7 % . [facility] MCH Auto (RBC) [Entitic mass ]Ordered By: Prem Goel on 04-29-2022 MCH (RBC) [Entitic mass] 30.0 pg 24.7-34.3 [facility] MCHC Auto (RBC) [Mass/Vol]Or dered By: Prem Goel on 04-29-2022 MCHC (RBC) [Mass/Vol] 32.1 g/dL 32.0-35.[address] [facility] MCV Auto (RBC) [Entitic vol] Ordered By: Prem Goel on 04-29-2022 MCV (RBC) [Entitic vol] 93.4 fL 80-100 [facility] Monocytes Auto (Bld) [#/Vol] Ordered By: Prem Goel on 04-29-2022 Monocytes (Bld) [#/Vol] 1.1 10*3/uL 0.0-0.8 [facility] Monocytes/100 WBC Auto (Bld) Ordered By: Prem Goel on 04-29-2022 Monocytes/100 WBC (Bld) 10.4 % . [facility] Neutrophils Auto (Bld) [#/Vo l]Ordered By: Prem Goel on 04-29-2022 Neutrophils (Bld) [#/Vol] 7.6 10*3/uL 1.8-7.7 [facility] Neutrophils/100 WBC Auto (Bl d)Ordered By: Prem Goel on 04-29-2022 Neutrophils/100 WBC (Bld) 71.1 % . [facility] No Panel InformationOrdered By: Prem Goel on 04-29-2022 Estimated GFR () > 60 mL/Min [facility] Comment on above: GFR estimated refere nce range: According to KDOQI guidelines, <60 ml/min/1.73m2 is sufficient to diagnose a patient with chronic kidney disease. Pharmacy Creatinine Clearance (Chem N/A [facility] Platelet mean volume Auto (B ld) [Entitic vol]Ordered By: Prem Goel on 04-29-2022 Platelet mean volume (Bld) [Entitic vol] 10.2 fL 6.3-10.7 [facility] Platelets Auto (Bld) [#/Vol] Ordered By: Prem Goel on 04-29-2022 Platelets (Bld) [#/Vol] 238 10*3/uL 150-450 [facility] Protein [Mass/volume] in Ser um or PlasmaOrdered By: Prem Goel on 04-29-2022 Protein [Mass/Vol] 6.7 g/dL 6.1-7.9 [facility] RBC Auto (Bld) [#/Vol]Ordere d By: Prem Goel on 04-29-2022 RBC (Bld) [#/Vol] 4.95 10*6/uL 3.60-5.00 [facility] Serum or plasma alanine tobias otransferase measurement without P-5'-P (enzymatic activiOrdered By: Prem Goel on 04-29-2022 ALT No additional P-5'-P [Catalytic activity/Vol] 18 U/L 10-60 [facility] Serum or plasma albumin/glob ulin mass ratioOrdered By: Prem Goel on 04-29-2022 Albumin/Globulin [Mass ratio] 1.0 {ratio} [facility] Serum or plasma alkaline joshua sphatase measurement (enzymatic activity/volume)Ordered By: Prem Goel on 04-29-2022 ALP [Catalytic activity/Vol] 100 U/L 32-92 [facility] Serum or plasma anion gap de terminationOrdered By: Prem Goel on 04-29-2022 Anion gap [Moles/Vol] 10.5 mmol/L 6.0-15.0 [facility] Serum or plasma aspartate am inotransferase measurement (enzymatic activity/volume)Ordered By: Prem Goel on 04-29-2022 AST [Catalytic activity/Vol] 19 U/L 10-42 [facility] Serum or plasma calcium erica urement (mass/volume)Ordered By: Prem Goel on 04-29-2022 Calcium [Mass/Vol] 9.2 mg/dL 8.2-10.2 [facility] Serum or plasma chloride omaira surement (moles/volume)Ordered By: Prem Goel on 04-29-2022 Chloride [Moles/Vol] 102 mmol/L 95-114 [facility] Serum or plasma glucose erica urement (mass/volume)Ordered By: Prem Goel on 04-29-2022 Glucose [Mass/Vol] 111 mg/dL 70-100 [facility] Comment on above: ADA recommended refe rence rangeRandom Glucose Reference Range is dependent on time and content of last meal. Glucose of more than 200 mg/dL in a nonstressed, ambulatory subject supports the diagnosis of Diabetes Mellitus. Serum or plasma high density lipoprotein (HDL) cholesterol measurementOrdered By: Prem Goel on 04-29-2022 Cholesterol in HDL [Mass/Vol] 76 mg/dL 35-85 [facility] Comment on above: HDL CHOL ATP-III CLA SSIFICATION Cardiovascular RiskHDL > or equal to 60 mg/dL LOWHDL < 40 mg/dL HIGH Serum or plasma potassium me asurement (moles/volume)Ordered By: Prem Goel on 04-29-2022 Potassium [Moles/Vol] 4.0 mmol/L 3.5-5.[address] [facility] Serum or plasma sodium measu rement (moles/volume)Ordered By: Prem Goel on 04-29-2022 Sodium [Moles/Vol] 137 mmol/L 136-146 [facility] Serum or plasma total biliru bin measurement (mass/volume)Ordered By: Prem Goel on 04-29-2022 Bilirubin [Mass/Vol] 0.8 mg/dL 0.3-1.2 [facility] Serum or plasma total carbon dioxide measurement (moles/volume)Ordered By: Prem Goel on 04-29-2022 CO2 [Moles/Vol] 28.5 mmol/L 22.0-30.0 [facility] Serum or plasma total choles terol/high density lipoprotein (HDL) cholesterol mass ratOrdered By: Prem Goel on 04-29-2022 Cholesterol.total/Araceli sterol in HDL [Mass ratio] 2.6 {ratio} <5.0 [facility] Serum or plasma urea nitroge n measurement (mass/volume)Ordered By: Prem Goel on 04-29-2022 Urea nitrogen [Mass/Vol] 14 mg/dL - [facility] TSH DL <= 0.005 mIU/L QnOrde red By: Prem Goel on 04-29-2022 TSH Qn 1.74 m[IU]/L 0.45-5.33 [facility] Thyroid Stimulating Hormoneo n 04-29-2022 TSH Qn 1.74 m[IU]/L Normal 0.45-5.33 [facility] Comment on above: Order Comment: Reaso n for Exam Hyperlipidemia Result Comment: PERF ORMED BY: [facility] [address] [place] [address] PATHOLOGIST ATHLETIC TEAM PHYSICIAN BEV TALBERT M.D. Performed By: #### A 1C [facility] eA, LIPID, TSH3, CBC, CMP #### [facility] [address] Triglyceride [Mass/volume] i n Serum or PlasmaOrdered By: Prem Goel on 04-29-2022 Triglyceride [Mass/Vol] 53 mg/dL 35-149 [facility] Comment on above: TRIG ATP III CLASSIF ICATIONTRIG less than 150 mg/dL NormalTRIG 150-199 mg/dL Borderline highTRIG 200-500 mg/dL High TRIG greater than 500 mg/dL Very highStandard traceable to the Center for Disease Conrtrol and Prevention (CDC) test method. A1C HEMOGLOBINon 04-30-2021 HbA1c (Bld) [Mass fraction] 5.8 % [facility] Other HbA1c (Bld) [Mass fraction]o n 04-30-2021 A1C HEMOGLOBIN [facility] [employer] Other [facility] CARDIAC STRESS/REST (DOUGLAS CARDIAL PERFUSION/MIBI)on 04-09-2020 [facility] CARDIAC STRESS/REST (MYOCARDIAL PERFUSION/MIBI) Patient Name: ISAIAS WILKERSON STUDY: MYOCARDIAL PERFUSION STRESS TEST WITH LEXISCAN Performing facility: [facility], [address] [place] [address], [address] Provider: WP SMYTH PCP: Dr. PREM GOEL Supervising provider: WP SMYTH INDICATION: CP HISTORY: Gender: F; Age: 84 y/o ; Height: 157.48 cm; Weight: 78.7580469 kg. High Cholesterol; CP Family HX CAD; Denies smoking. COMPARISON: Previous nuclear testing completed at [facility]. ACCESSION NUMBER(S): [id number] ORDERING CLINICIAN: MATT SMYTH TECHNIQUE: ONE DAY [...] Electronically signed by: BRIELLE DUVAL MD [facility] CARDIAC STRESS/REST INJE CTIONon 04-09-2020 [facility] CARDIAC STRESS/REST INJECTION Patient Name: ISAIAS WILKERSON STUDY: MYOCARDIAL PERFUSION STRESS TEST WITH LEXISCAN Performing facility: [facility], [address] [place] [address], [address], [address] Provider: WP SMYTH PCP: Dr. PREM GOEL Supervising provider: WP SMYTH INDICATION: CP HISTORY: Gender: F; Age: 84 y/o ; Height: 157.48 cm; Weight: 78.5724323 kg. High Cholesterol; CP Family HX CAD; Denies smoking. COMPARISON: Previous nuclear testing completed [id number] at [facility]. ACCESSION NUMBER(S): [id number] ORDERING CLINICIAN: MATT SMYTH TECHNIQUE: ONE DAY [...] Electronically signed by: BRIELLE DUVAL MD [facility] PART 2 STRESS OR REST (N O CHARGE)on 04-09-2020 [facility] PART 2 STRESS OR REST (NO CHARGE) Patient Name: ISAIAS WILKERSON STUDY: MYOCARDIAL PERFUSION STRESS TEST WITH LEXISCAN Performing facility: [facility], [address] [place] [address], [address], [address] Provider: WP SMYTH PCP: Dr. PREM GOEL Supervising provider: WP SMYTH INDICATION: CP HISTORY: Gender: F; Age: 84 y/o ; Height: 157.48 cm; Weight: 78.4623849 kg. High Cholesterol; CP Family HX CAD; Denies smoking. COMPARISON: Previous nuclear testing completed [id number] at [facility]. ACCESSION NUMBER(S): [id number] ORDERING CLINICIAN: MATT SMYTH TECHNIQUE: ONE DAY [...] comparison. Electronically signed by: BRIELLE DUVAL MD [facility] Vital Signs Date Time Vital Sign Value Performing Clinician Facility 03-17-2023 08:45-0400 Body height 154.94 cm [facility] Other [facility] Other 03-17-2023 08:45-0400 Body mass index (BMI) [Ratio] 30.98 kg/m2 [facility] Other [facility] Other 03-17-2023 08:45-0400 Body weight 74.39 kg [employer] Other [facility] Other 03-17-2023 08:45-0400 Diastolic blood pressure 76 mm[Hg] [facility] Other [facility] Other 03-17-2023 08:45-0400 Respiratory rate 16 /min [facility] Other [facility] Other 03-17-2023 08:45-0400 SaO2% (BldA) [Mass fraction] 96 % Prem Kuns Other [facility] Other 03-17-2023 08:45-0400 Systolic blood pressure 120 mm[Hg] Prem Kuns Other [facility] Other 11-12-2022 14:45-0400 Body height 154.94 cm Prem Kuns Other [facility] Other 11-12-2022 14:45-0400 Body mass index (BMI) [Ratio] 31.36 kg/m2 Prem Kuns Other [facility] Other 11-12-2022 14:45-0400 Body weight 75.3 kg Prem Kuns Other [facility] Other 11-12-2022 14:45-0400 Diastolic blood pressure 68 mm[Hg] Prem Kuns Other [facility] Other 11-12-2022 14:45-0400 Respiratory rate 16 /min Prem Kuns Other [facility] Other 11-12-2022 14:45-0400 SaO2% (BldA) [Mass fraction] 93 % Prem Kuns Other [facility] Other 11-12-2022 14:45-0400 Systolic blood pressure 124 mm[Hg] Rpem Kuns Other [facility] Other 01-28-2022 11:15-0400 Body height 154.94 cm Prem Kuns Other [facility] Other 01-28-2022 11:15-0400 Body mass index (BMI) [Ratio] 30.98 kg/m2 Prem Kuns Other [facility] Other 01-28-2022 11:15-0400 Body weight 74.39 kg Prem Kuns Other [facility] Other 01-28-2022 11:15-0400 Diastolic blood pressure 82 mm[Hg] Prem Kuns Other [facility] Other 01-28-2022 11:15-0400 Respiratory rate 18 /min Prem Kuns Other [facility] Other 01-28-2022 11:15-0400 SaO2% (BldA) [Mass fraction] 95 % Prem Kuns Other [facility] Other 01-28-2022 11:15-0400 Systolic blood pressure 142 mm[Hg] Prem Kuns Other [facility] Other 08-15-2021 14:45-0500 Body height 154.94 cm Prem Kuns Other [facility] Other 08-15-2021 14:45-0500 Body mass index (BMI) [Ratio] 30.04 kg/m2 Prem Kuns Other [facility] Other 08-15-2021 14:45-0500 Body weight 72.12 kg Prem Kuns Other [facility] Other 08-15-2021 14:45-0500 Diastolic blood pressure 80 mm[Hg] Prem Kuns Other [facility] Other 08-15-2021 14:45-0500 Respiratory rate 16 /min Prem Kuns Other [facility] Other 08-15-2021 14:45-0500 SaO2% (BldA) [Mass fraction] 99 % Prem Kuns Other [facility] Other 08-15-2021 14:45-0500 Systolic blood pressure 142 mm[Hg] Prem Kuns Other [facility] Other 04-30-2021 11:45-0500 Body height 154.94 cm Prem Kuns Other [facility] Other 04-30-2021 11:45-0500 Body mass index (BMI) [Ratio] 29.74 kg/m2 Prem Kuns Other [facility] Other 04-30-2021 11:45-0500 Body weight 71.4 kg Prem Kuns Other [facility] Other 04-30-2021 11:45-0500 Diastolic blood pressure 87 mm[Hg] Prem Kuns Other [facility] Other 04-30-2021 11:45-0500 Respiratory rate 18 /min Prem Kuns Other [facility] Other 04-30-2021 11:45-0500 SaO2% (BldA) [Mass fraction] 93 % Prem Kuns Other [facility] Other 04-30-2021 11:45-0500 Systolic blood pressure 136 mm[Hg] Prem Kuns Other [facility] Other 02-28-2021 11:15-0400 Body height 154.94 cm Prem Kuns Other [facility] Other 02-28-2021 11:15-0400 Body mass index (BMI) [Ratio] 29.85 kg/m2 Prem Kuns Other [facility] Other 02-28-2021 11:15-0400 Body weight 71.67 kg Prem Kuns Other [facility] Other 02-28-2021 11:15-0400 Diastolic blood pressure 86 mm[Hg] Prem Kuns Other [facility] Other 02-28-2021 11:15-0400 Respiratory rate 16 /min Prem Kuns Other [facility] Other 02-28-2021 11:15-0400 SaO2% (BldA) [Mass fraction] 97 % Prem Kuns Other [facility] Other 02-28-2021 11:15-0400 Systolic blood pressure 134 mm[Hg] Prem Kuns Other [facility] Other Encounters Encounter Date Encounter Type Care Provider Facility Start: 05-27-2023 End: 05-27-2023 ambulatory Prem Kuns Other [facility] Other Start: 05-27-2023 Telephone encounter Prem Michaels [facility] Start: 03-17-2023 End: 03-17-2023 ambulatory Prem Kuns Other [facility] Other Start: 03-17-2023 Office outpatient visit 25 minutes Premsaloni Cabezass [facility] Start: 03-12-2023 End: 03-12-2023 ambulatory Prem Michaels Facility:[facility] Start: 03-12-2023 End: 03-12-2023 ambulatory DO Prem Kuns Work Phone: [facility] Work Phone: Start: 03-12-2023 End: 03-12-2023 Patient encounter procedure DO Prem Kuns Work Phone: [facility] Work Phone: Start: 01-30-2023 End: 01-30-2023 ambulatory Prem Kuns Other [facility] Other Start: 01-30-2023 Telephone encounter Prem Michaels [facility] Start: 11-12-2022 End: 11-12-2022 ambulatory Prem Michaels Other [facility] Other Start: 11-12-2022 Office outpatient visit 25 minutes Premsaloni Cabezass [facility] Start: 11-04-2022 End: 11-04-[address] PREM GOEL Facility:[facility] Start: 11-04-2022 Telephone encounter Prem Raymon [facility] Start: 10-30-2022 End: 10-30-2022 ambulatory Prem Goel Facility:[facility] Start: 10-14-2022 End: 10-14-[address] PREM GOEL Facility:[facility] Start: 10-02-2022 End: 10-03-2022 ambulatory DONELL MICHELMICECELIA . Facility:[facility] Start: 09-09-2022 End: 09-09-[address] PREM GOEL Facility:[facility] Start: 09-04-2022 End: 09-05-[address] PREM GOEL Facility:[facility] Start: 08-19-2022 End: 08-19-[address] BILL RAMOS Facility:[facility] Start: 07-22-2022 End: 07-23-[address] PREM GOEL Facility:[facility] Start: 05-08-2022 End: 05-09-2022 ambulatory AIXABUTCH RODRIGUEZIS . Facility:[facility] Start: 05-06-2022 Annual wellness visit Prem arevalo Other [facility] Other Start: 04-29-2022 End: 04-29-2022 ambulatory Prem Goel Facility:[facility] Start: 04-29-2022 End: 04-29-2022 ambulatory DO Prem Goel Work Phone: [facility] Work Phone: Start: 04-29-2022 End: 04-29-2022 Patient encounter procedure DO Prem Goel Work Phone: [facility] Start: 03-06-2022 End: 03-07-[address] KHOA RAMOS . Facility:[facility] Start: 02-27-2022 End: 02-27-2022 ambulatory Prem Goel Other [facility] Other Start: 02-27-2022 Telephone encounter Prem Goel [facility] Start: 02-18-2022 End: 02-18-[address] KHOA RAMOS . Facility:[facility] Start: 01-28-2022 End: 01-28-2022 ambulatory Prem Goel Other [facility] Other Start: 01-28-2022 Office outpatient visit 15 minutes Prem Goel [facility] Start: 01-21-2022 End: 01-22-[address] KHOA RAMOS . Facility:[facility] Start: 12-02-2021 End: 12-02-2021 ambulatory Prem Goel Other [facility] Other Start: 12-02-2021 Telephone encounter Prem Goel [facility] Start: 11-28-2021 End: 11-28-2021 ambulatory Prem Kuns Other [facility] Other Start: 11-28-2021 Telephone encounter Prem Kuns [facility] Start: 10-02-2021 End: 10-02-2021 ambulatory Prem Kuns Other [facility] Other Start: 10-02-2021 Telephone encounter Prem Kuns [facility] Start: 09-10-2021 End: 09-10-2021 ambulatory Prem Kuns Other [facility] Other Start: 09-10-2021 Telephone encounter Prem Kuns [facility] Start: 08-15-2021 End: 08-15-2021 ambulatory Prem Kuns Other [facility] Other Start: 08-15-2021 Office outpatient visit 25 minutes [facility] Start: 08-12-2021 End: 08-12-2021 ambulatory Prem Kuns Other [facility] Other Start: 08-12-2021 Telephone encounter Prem Kuns [facility] Start: 06-13-2021 End: 06-13-2021 ambulatory Prem Kuns Other [facility] Other Start: 06-13-2021 [facility] Start: 04-30-2021 End: 04-30-2021 ambulatory Prem Kuns Other [facility] Other Start: 04-30-2021 Office outpatient visit 25 minutes [facility]uns [facility] Start: 02-28-2021 End: 02-28-2021 ambulatory Prem Kuns Other [facility] Other Start: 02-28-2021 Patient encounter procedure Prem Goel [facility] Start: 08-18-2019 Annual wellness visit Prem Jason irina Other [facility] Other Plan of Treatment Date Care Activity Detail Author Glucose measurement estimated from glycated hemoglobin [facility] Immunizations Immunization Date Immunization Notes Care Provider Fa cility 06-13-2021 COVID-19 Vaccine Pfizer - Documentation Purposes Only Prem Goel Other [facility] Other 07-19-2020 COVID-19 Vaccine Pfizer - Documentation Purposes Only Prem Raymon Other [facility] Other 06-29-2020 COVID-19 Vaccine Pfizer - Documentation Purposes Only Prem Goel Other [facility] Other NEGATED: Highlighted row has not occurred!05-06-2022 influenza, seasonal, injectable Patient Objection Premsaloni Goel Other [facility] Other NEGATED: Highlighted row has not occurred!05-06-2022 Prevnar 20 Patient Objection Prem Michaeleddie Other [facility] Other NEGATED: Highlighted row has not occurred!02-17-2019 influenza, seasonal, injectable Patient Objection Premsaloni Goel Other [facility] Other NEGATED: Highlighted row has not occurred!04-07-2017 influenza, seasonal, injectable Patient Objection Premsaloni Cabezass Other [facility] Other Payers Date Payer Category Payer Self-pay [id number] Private Health Insurance [id number] 1937 Unknown [id number]3 1937 Unknown [id number] 2.16.840.1.738536.3.579.2.593 1937 Unknown [id number] 2.16.840.1.309789.3.579.2.593 1937 Unknown [id number] 2.16.840.1.859416.3.579.2.593 1937 Unknown [id number] 2.16.840.1.837518.3.579.2.593 1937 Unknown [id number] 2.16.840.1.296128.3.579.2.593 1937 Unknown [id number] 2.16.840.1.381668.3.579.2.593 1937 Unknown [id number] 2.16.840.1.728158.3.579.2.593 1937 Unknown [id number] 2.16.840.1.005123.3.579.2.593 1937 Unknown [id number] 2.16.840.1.951397.3.579.2.593 1937 Unknown [id number] 2.16.840.1.609235.3.579.2.593 Medicare Medicare [id number] Unknown [facility] Health Claims [id number] Unknown [id number] 2.16.840.1.657166.3.579.2.531 Unknown [id number] 2.16.840.1.385641.3.579.2.531 Unknown [id number] 2.16.840.1.478609.3.579.2.531 Social History Date Type Detail Facility Unknown if ever smoked [facility] Other Sex Assigned At Sex Assigned At Bir th [facility] Other Start: 03-28-2020 End: 03-28-2020 Tobacco smoking status NHIS Never smoked tobacco (finding) [facility] Start: 1935 Sex Assigned At Female F [facility] Clinical Notes 12-21-2007 to 03-17-2023 Note [...] exercise regimen; we will continue to monitor. [facility] Other 08-25-2023 Evaluation note* Encounter Date Diagnosis Assessment Notes Treatment Notes Treatment Clinical Notes Jan, Hyperlipidemia (ICD-10 - E78.5) [facility] Other [id number] Evaluation note* Encounter Date Diagnosis Assessment Notes Treatment Notes Treatment Clinical Notes Nov, Bronchopneumonia (ICD-10 - J18.0) [facility] ER records reviewed from both [...] (ICD-10 - R59.0) Noted on imaging from [facility]. I do believe this is likely due to her being ill. She has never smoked. Discussed these findings with the and the patient if symptoms persist we may have pulmonary evaluation but at this time patient appears to be improving [facility] Other 04-27-2023 NoteCONSULTATION CONSULTATION DATE: 10/02/2022 TO: [...] our patients to inform us about any rwux-zfw-dudmitu medications or herbal remedies/nutritional supplements/alternative remedies. 2. [...] treatment options with their primary care provider.[id number] Note CONSULTATION CONSULTATION DATE: 09/04/2022 TO: Dr. [...] mg pills, 1-2 at h.s[address] as tolerated.[facility] [id number] NoteCONSULTATION CONSULTATION DATE: 07/22/2022 CHIEF COMPLAINT: Right [...] her understand and would like to proceed,.[facility] 05-08-2022 NoteCONSULTATION CONSULTATION DATE: 05/08/2022 HISTORY [...] in three months' time unless otherwise indicated.[facility] [id number] NoteCONSULTATION CONSULTATION DATE: 03/06/2022 This is a [...] of care and all questions were answered.[facility] [id number] Evaluation note* Encounter Date Diagnosis Assessment Notes Treatment Notes Treatment Clinical Notes Feb, Hyperlipidemia (ICD-10 - E78.5) [facility] Other 08-23-2022 Evaluation note* Encounter Date Diagnosis [...] E78.5) Jan, Hyperglycemia (ICD-1 0 - R73.9) [facility] Other 08-16-2022 NoteCONSULTATION CONSULTATION DATE: 01/21/2022 CHIEF [...] her understand. CC: Dr. Raphael Escamilla D.O.[facility] [id number] NotePROCEDURE: [employer] HDXT 1.5 Sagittal T1, T2, STIR [...] and signed by Ralph Figueroa on 10/25/2021 1510[facility]03-10-2022 Evaluation note* Encounter Date Diagnosis Assessment Notes [...] we will attempt to order an MRI. [facility] Other 01-06-2022 Evaluation note* Encounter Date Diagnosis Assessment Notes Treatment Notes Treatment Clinical Notes Jun, Hyperlipidemia (ICD-10 - E78.5) [facility] Other 11-23-2021 Evaluation note* Encounter Date Diagnosis [...] work-up i.e. CAT scan of her abdomen. [facility] Other 09-23-2021 Evaluation note* Encounter Date Diagnosis [...] order provided to repeat in six weeks. Feb, Lymphocytosis (ICD-1 0 - D72.820) We will continue to monitor, a blood work order was provided. [facility] Other 07-15-2008 History general Narrative - Reported* Type Description Date Medical History Colonoscopy 12-21-07 Medical History Stress Test 01-18-[address] Scan Abdomen and Pelvis 06-07 Medical History Mammogram 2-11 Medical History Pap 1-10 Medical History 02/2013 [facility] [place] History 10/13/13-mammogram at [facility] Medical History 12/2015 mammogram Medical History 12/2016 Mammogram Medical History 07/2019 Mammogram Medical History Cardiolite 04/09/20 Surgical History wisdom teeth Hospitalization History child [facility] Other 07-15-2008 History general Narrative - Reported* Type Description Date Medical History Colonoscopy 12-21-07 Medical History Stress Test 01-18-[address] Scan Abdomen and Pelvis 06-07 Medical History Mammogram 2-11 Medical History Pap 1-10 Medical History 02/2013 [facility] Medical History 10/13/13-mammogram at [facility] Medical History 12/2015 mammogram Medical History 12/2016 Mammogram Medical History 07/2019 Mammogram Medical History Cardiolite 04/09/20 Medical History hearing aids Surgical History wisdom teeth Hospitalization History child [facility] Other evaluation noteNo InformationNort [employer] Other evaludlgwc noteNo assessment information available [facility] Work Phone: Summary Purpose Family History No [...] section and content) DATE CREATED AUTHOR [facility] DATE CREATED AUTHOR AUTHOR'S ORGANIZ ATION 10/27/2021 [facility] dical Specialist DATE CREATED AUTHOR AUTHOR'S ORGANIZ ATION 10/17/2022 [facility] DATE CREATED AUTHOR AUTHOR'S ORGANIZ ATION 03/15/2023 [facility] REASON FOR VISIT (unrecogniz ed section and content) refillMEDICARE WELLNESS SUBR efillsreview labs- hyperlipidemia managementRefillship/leg painhip and leg painClinicalRefill3 month Follow up right hp /legRefillsClinicalER FOLLOW UP JUAN C BRONCHITISRefills4 month Follow upRefills Care Teams (unrecognized sec tion and content) Team Status: Active Member Role Status Dates Prem Goel , Primary Care Provider Active Team Status: Inactive Member Role Status Dates Prem Goel , Primary Care Provider, Attending Provi alexey Active [...] BE BASED ON THE PRIMARY CLINICAL RECORDS. [employer] provides no warranty or guarantee of the accuracy or completeness of information in this document.
== END 2023-08-27 09:44 | disposition home or self-care (01) ==
LOC: PM 09:44
PROVIDERS: PCP Family Medicine; Visit Provider Nurse Practitioner
DX: M47.816 Spondylosis without myelopathy or radiculopathy, lumbar region (principal); M62.838 Other muscle spasm; G89.4 Chronic pain syndrome; G57.01 Lesion of sciatic nerve, right lower limb
CPT/HCPCS: G0463

== ENCOUNTER 2023-09-11 07:50 | Outpatient (RCR) | payer MEDICARE, SELFPAY | END 2023-10-09 12:24 | disposition home or self-care (01) | LOC: PT 07:50 | PROVIDERS: PCP Family Medicine; Visit Provider Orthopaedic Surgery | DX: S43.005D Unspecified dislocation of left shoulder joint, subsequent encounter (principal); R26.89 Other abnormalities of gait and mobility; R26.9 Unspecified abnormalities of gait and mobility | CPT/HCPCS: 97110; 97161 ==

== ENCOUNTER 2023-09-22 10:03 | Outpatient (OUT) | payer MEDICARE, SELFPAY ==
--- NOTE | 2023-09-22 | CONS_ITS ---
CONSULTATION DATE: 09/22/2023 TO: Dr. Ignacio Ennis CHIEF COMPLAINT: Includes right lower extremity pain. HISTORY: She reports the pain as being 8/10. Describes it as ?It just hurts? type pain, but occasionally becomes quite sharp. Reports the pain increases with activities such standing and walking. She feels most comfortable in the semi-recumbent position. She denies any change in bowel and bladder habits and reports progressive numbness and weakness of the right lower extremity. CURRENT MEDICATION: Includes diclofenac 50 mg b.i.d. Her NABILA was 38 on today?s visit. EXAM: Her examination is notable for patient having 3/5 strength involving the right anterior tibialis and quadriceps with a depressed right patellar reflex and a straight leg raise positive at approximately 90 degrees. She had no clinical evidence of myelopathy involving the lower extremities. 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 RECOMMENDATIONS: I recommend she undergo a lumbosacral spine film, PA and lateral views; lumbar MRI, physical therapy and will see the patient back in the office after she undergoes her imaging studies. Lastly, I have increased the diclofenac to 75 mg b.i.d. p.r.n. As part of providing excellent, safe, comprehensive care, the following was completed at our patient's visit: 1. A medication reconciliation and review to ensure accurate knowledge of current/active medications, including asking our patients to inform us about any pdsc-tsd-pjlkuga medications or herbal remedies/nutritional supplements/alternative remedies. 2. A review to specifically ensure our patients have had annual screening for: elevated body mass index (BMI, see intake chart for exact total), tobacco use, screening for depression, and screening for unhealthy alcohol use. When screening is concerning, patients are provided with education and the specific recommendation to discuss the concerning health issue and treatment options with their primary care provider. SAMIR
--- OUTSIDE RECORDS SUMMARY | 2023-09-22 10:18 | XMS_ITS | CCD ---
Author Organization [facility] Care Team Providers Care Game Technician Name Role Phone Prem Goel Unavailable DO Prem Goel Primary Care Provider DO Prem Goel Attending Provider [phone] LAKSHMIPATHY ., NARENDRANATH Admitting Eda vailable [...] PARAMJIT ., DR KHOA Hernandez Admitting Unavailable KUNS, DR AMARO Primary Care Unavailable RAMOS ., DR KHOA Hernandez Attending Unavailable RAMOS ., DR KHOA Hernandez Consulting Unavailable RMAOS ., DR KHOA Hernandez Admitting Unavailable KUNS, DR AMARO Primary Care Unavailable RAMOS ., DR KHOA Hernandez Attending Unavailable RAMOS ., DR KHOA Hernandez Consulting Unavailable KUNS, DR AMARO Consulting Unavailable KUNS, DR AMARO Primary Care Unavailable LAKSHMIPATHY ., NARENDRANATH Admitting Eda vailable LAKSHMIPATHY ., NARENDBASSAMATH Attending Eda vailable LAKSHMIPATHY ., NARFRANCISCAATH Consulting Eda vailable Kuns, DO Prem Primary Care Provider [phone] Kuns, DO Prem Attending Provider Kuns, DO Prem Primary Care Provider Kuns, [...] nee ded Orally every 8 hrs Active [id number] actuat albuterol 0.09 mg/actuat metered dose [...] aspirin 81 mg delayed release oral tablet (3 sources) Platelet Aggregation Inhibitor, Nonsteroidal Anti-inflammatory Drug Start: 03-27-20 take 81 mg by mouth once daily [...] day Active ezetimibe 10 mg oral tablet (17 sources) Dietary Cholesterol Absorption Inhibitor Start: 08-03-19 take 1 tablet by mouth once daily Ezetimibe Active 1 TAB PO Daily August 03, 2023 1:00am [employer] tablet Orally Once a day; Note: Source Status: Continue; Provider: Raymon Casas Start: 02-28-2021 take 1 tablet by daniella th every twenty-four hours Ezetimibe 10 MG 1 tablet Orally Once a day Feb, Active methylPREDNISolone 4 mg oral tablet (5 sources) Corticosteroid Start: 08-15-2021 methylPREDNISolone 4 MG as directed Orally as directed Aug, Active omeprazole 20 mg delayed release oral capsule (19 sources) Proton Pump Inhibitor Start: 05-20-2017 take 20 mg by mouth once daily Omeprazole Active 20 MG PO Daily March 27, 2020 12:00am (5 sources) Active Triamcinolone (13 sources) Corticosteroid Start: 11-20-2020 Kenalog -40 mg Nov, 1 cc Completed/Discontinued Medications Medication Drug Class(es) Dates Sig (Normalized) Sig (Original) atorvastatin 10 mg oral tablet (15 sources) HMG-CoA Reductase Inhibitor Start: 10-26-2017 End: 08-03-2023 take 1 tablet by mouth once daily Atorvastatin (Lipitor) 10 mg Tablet Discontinued 10 MG PO Daily March 27, 2020 12:00am August 03, 2023 5:27pm Problems Active Problems Problem Classification Problem Date Documented Date Episodic/Chronic Chronic obstructive pulmonary disease and bronchiectasis (4 sources) Bronchitis; Translations: [Bronchitis, not specified as acute or chronic] Episodic Diseases of white blood cells (17 [...] Episodic Other nutritional; endocrine; and metabolic disorders (19 sources) Obesity; Translations: [Obesity, unspecified] 04-03-2020 Chronic [...] Classification Problem Date Documented Da te Episodic/Chronic Diabetes mellitus without complication (12 sources) Hyperglycemia, unspecified; Translations: [Hyperglycemia] Onset: 04-30-2021 Resolved: 01-28-2022 Episodic Other and unspecified benign neoplasm (1 source) [...] Range Facility A1C with Estimated Average G krisn 09-18-2023 Glucose [Mass/Vol] 117 mg/dL Normal [facility] Comment on above: Order Comment: Reaso n for Exam Hyperglycemia Result Comment: PERF ORMED BY: [address] [place] [address] PATHOLOGIST ELECT[employer]S TECHNICIAN BEV TALBERT M.D. Performed By: #### L IPID, TSH3, CBC, CMP #### [facility] [address] HbA1c (Bld) [Mass fraction] 5.7 % High 4.3-5.6 [facility] Comment on above: Order Comment: Reaso n for Exam Hyperglycemia Result Comment: Incr eased risk for diabetes: 5.7 - 6.4 diabetes: >6.4 glycemic control for adults with diabetes: <7.0 Performed By: #### L IPID, TSH3, CBC, CMP #### [facility] [address] [place] [id number] [facility] Alanine aminotransferase [En zymatic activity/volume] in Serum or PlasmaOrdered By: Prem Goel on 09-18-2023 ALT [Catalytic activity/Vol] 15 U/L 7-[address] [facility] Albumin [Mass/volume] in Ser um or Plasma by Bromocresol green (BCG) dye binding methoOrdered By: Prem Goel on 09-18-2023 Albumin BCG dye [Mass/Vol] 4.0 g/dL 3.5-5.[address] [facility] Alkaline phosphatase [Enzyma tic activity/volume] in Serum or PlasmaOrdered By: Prem Goel on 09-18-2023 ALP [Catalytic activity/Vol] 87 U/L 34-[address] [facility] Aspartate aminotransferase [ Enzymatic activity/volume] in Serum or PlasmaOrdered By: Prem Goel on 09-18-2023 AST [Catalytic activity/Vol] 16 U/L 13-[address] [facility] Basophils Auto (Bld) [#/Vol] Ordered By: Prem Goel on 09-18-2023 Basophils (Bld) [#/Vol] 0.0 10*3/uL 0.0-0.[address] [facility] Basophils/100 WBC Auto (Bld) Ordered By: Prem Goel on 09-18-2023 Basophils/100 WBC (Bld) 0.5 % . [facility] Bilirubin.total [Mass/volume ] in Serum or PlasmaOrdered By: Prem Goel on 09-18-2023 Bilirubin [Mass/Vol] 0.6 mg/dL 0.3-1.[address] [facility] Calcium [Mass/volume] in Ser um or PlasmaOrdered By: Prem Goel on 09-18-2023 Calcium [Mass/Vol] 9.5 mg/dL 8.6-10.3 [facility] Carbon dioxide, total [Moles /volume] in Serum or PlasmaOrdered By: Prem Goel on 09-18-2023 CO2 [Moles/Vol] 28.9 mmol/L 21.0-31.0 [facility] Chloride [Moles/volume] in S dede or PlasmaOrdered By: Prem Goel on 09-18-2023 Chloride [Moles/Vol] 104 mmol/L 98-[address] [facility] Cholesterol [Mass/volume] in Serum or PlasmaOrdered By: Prem Goel on 09-18-2023 Cholesterol [Mass/Vol] 289 mg/dL 140-200 [facility] Comment on above: Chol less than 200 m g/dl low riskChol 201-239 mg/dl borderline riskChol 240 mg/dl and greater high risk Cholesterol in LDL Calc [Mas s/Vol]Ordered By: Prem Goel on 09-18-2023 Cholesterol in LDL [Mass/Vol] 197 mg/dL 0-[address] [facility] Comment on above: LDL ATP III CLASSIFI CATIONLDL less than 100 mg/dL OptimalLDL 100-129 mg/dL Near or above optimalLDL 130-159 mg/dL Borderline highLDL 160-189 mg/dL HighLDL greater than 189 mg/dL Very high Cholesterol in VLDL Calc [Ma ss/Vol]Ordered By: Prem Goel on 09-18-2023 Cholesterol in VLDL [Mass/Vol] 23 mg/dL [facility] Complete Blood Count Auto Di ffon 09-18-2023 Basophils (Bld) [#/Vol] 0.0 10*3/uL Normal 0.0-0.2 [facility] Comment on above: Result Comment: PERF ORMED BY: [place] [id number] PATHOLOGIST ELECTRICAL CONTROLS TECHNICIAN BEV TALBERT M.D. Performed By: #### L IPID, TSH3, CBC, CMP #### [address] Basophils/100 WBC (Bld) 0.5 % Normal . T r[facility] Comment on above: Performed By: #### L IPID, TSH3, CBC, CMP #### [place] [address] [place] Eosinophils (Bld) [#/Vol] 0.1 10*3/uL Normal 0.0-0.45 [facility] Comment on above: Performed By: #### L IPID, TSH3, CBC, CMP #### [address] Eosinophils/100 WBC (Bld) 2.2 % Normal . [facility] Comment on above: Performed By: #### L IPID, TSH3, CBC, CMP #### [address] Erythrocyte distribution width (RBC) [Ratio] 13.9 % Normal 11.9-15.3 [facility] Comment on above: Performed By: #### L IPID, TSH3, CBC, CMP #### [address] Hematocrit (Bld) [Volume fraction] 44.9 % Normal 34.0-46.4 [facility] Comment on above: Performed By: #### L IPID, TSH3, CBC, CMP #### [address] Hemoglobin (Bld) [Mass/Vol] 14.3 g/dL Normal 11.8-15.4 [facility] Comment on above: Performed By: #### L IPID, TSH3, CBC, CMP #### [place] [address] [place] Lymphocytes (Bld) [#/Vol] 2.9 10*3/uL Normal 1.00-4.8 [facility] Comment on above: Performed By: #### L IPID, TSH3, CBC, CMP #### [place] [address] [place] Lymphocytes/100 WBC (Bld) 53.2 % Normal . [facility] Comment on above: Performed By: #### L IPID, TSH3, CBC, CMP #### [address] MCH (RBC) [Entitic mass] 29.4 pg Normal 24.7-34.3 [facility] Comment on above: Performed By: #### L IPID, TSH3, CBC, CMP #### [address] MCV (RBC) [Entitic vol] 92.3 fL Normal 80-100 [facility] Comment on above: Performed By: #### L IPID, TSH3, CBC, CMP #### [address] Mean Corpuscular HGB Conc 31.9 g/dL Low 32.0-35.0 [facility] Comment on above: Performed By: #### L IPID, TSH3, CBC, CMP #### [address] Monocytes (Bld) [#/Vol] 0.4 10*3/uL Normal 0.0-0.8 [facility] Comment on above: Performed By: #### L IPID, TSH3, CBC, CMP #### [address] Monocytes/100 WBC (Bld) 8.0 % Normal . [facility] Comment on above: Performed By: #### L IPID, TSH3, CBC, CMP #### [address] Neutrophils (Bld) [#/Vol] 1.9 10*3/uL Normal 1.8-7.7 [facility] Comment on above: Performed By: #### L IPID, TSH3, CBC, CMP #### [address] Neutrophils/100 WBC (Bld) 36.1 % Normal . [facility] Comment on above: Performed By: #### L IPID, TSH3, CBC, CMP #### [address] NRBC% 0.2 /100{WBC} Normal 0-0.5 [facility] Comment on above: Performed By: #### L IPID, TSH3, CBC, CMP #### [address] Platelet mean volume (Bld) [Entitic vol] 10.4 fL Normal 6.3-10.7 [facility] Comment on above: Performed By: #### L IPID, TSH3, CBC, CMP #### [address] Platelets (Bld) [#/Vol] 230 10*3/uL Normal 150-450 [facility] Comment on above: Performed By: #### L IPID, TSH3, CBC, CMP #### [address] RBC (Bld) [#/Vol] 4.87 10*6/uL Normal 3.60-5.00 [facility] Comment on above: Performed By: #### L IPID, TSH3, CBC, CMP #### [address] WBC (Bld) [#/Vol] 5.4 10*3/uL Normal 3.8-11.6 [facility] Comment on above: Performed By: #### L IPID, TSH3, CBC, CMP #### [address] Comprehensive Metabolic Pane [place] 09-18-2023 Albumin [Mass/Vol] 4.0 g/dL Normal 3.5-5.7 [facility] Comment on above: Order Comment: Reaso n for Exam Hyperlipidemia Performed By: #### L IPID, TSH3, CBC, CMP #### [address] Albumin/Globulin [Mass ratio] 1.7 {ratio} Normal [facility] Comment on above: Order Comment: Reaso n for Exam Hyperlipidemia Performed By: #### L IPID, TSH3, CBC, CMP #### [facility] [address] [place] [id number] [facility] ALP [Catalytic activity/Vol] 87 U/L Normal 34-104 [facility] Comment on above: Order Comment: Reaso n for Exam Hyperlipidemia Performed By: #### L IPID, TSH3, CBC, CMP #### [facility] [address] [place] [id number] [facility] ALT [Catalytic activity/Vol] 15 U/L Normal 7-52 [facility] Comment on above: Order Comment: Reaso n for Exam Hyperlipidemia Performed By: #### L IPID, TSH3, CBC, CMP #### [facility] [address] Anion gap [Moles/Vol] 12.3 mmol/L Normal 6.0-15.0 [facility] Comment on above: Order Comment: Reaso n for Exam Hyperlipidemia Performed By: #### L IPID, TSH3, CBC, CMP #### [facility] [address] [place] [address] AST [Catalytic activity/Vol] 16 U/L Normal 13-39 [facility] Comment on above: Order Comment: Reaso n for Exam Hyperlipidemia Performed By: #### L IPID, TSH3, CBC, CMP #### [facility] [address] [place] [address] Bilirubin [Mass/Vol] 0.6 mg/dL Normal 0.3-1.0 [facility] Comment on above: Order Comment: Reaso n for Exam Hyperlipidemia Performed By: #### L IPID, TSH3, CBC, CMP #### [facility] [address] [place], [place] [id number] [place] Calcium [Mass/Vol] 9.5 mg/dL Normal 8.6-10.3 [facility] Comment on above: Order Comment: Reaso n for Exam Hyperlipidemia Performed By: #### L IPID, TSH3, CBC, CMP #### [facility] [address] [place], [place] [id number] [place] Chloride [Moles/Vol] 104 mmol/L Normal 98-107 [facility] Comment on above: Order Comment: Reaso n for Exam Hyperlipidemia Performed By: #### L IPID, TSH3, CBC, CMP #### [facility] [address] [place] [address] [place] CO2 [Moles/Vol] 28.9 mmol/L Normal 21.0-31.0 [facility] Comment on above: Order Comment: Reaso n for Exam Hyperlipidemia Performed By: #### L IPID, TSH3, CBC, CMP #### [facility] [address] [place] [address] [place] Creatinine [Mass/Vol] 0.79 mg/dL Normal 0.60-1.20 [facility] Comment on above: Order Comment: Reaso n for Exam Hyperlipidemia Performed By: #### L IPID, TSH3, CBC, CMP #### [facility] [address] [place] [address] [place] GFR/1.73 sq M.predicted MDRD (S/P/Bld) [Vol rate/Area] mL/min/{1.73_m2} Normal [facility] Comment on above: Order Comment: Reaso n for Exam Hyperlipidemia Performed By: #### L IPID, TSH3, CBC, CMP #### [facility] [address] [place] [address] [place] Globulin (S) [Mass/Vol] 2.4 g/dL Normal T he [facility] Comment on above: Order Comment: Reaso n for Exam Hyperlipidemia Performed By: #### L IPID, TSH3, CBC, CMP #### [facility] [address] Glucose [Mass/Vol] 90 mg/dL Normal 70-100 [facility] Comment on above: Order Comment: Reaso n for Exam Hyperlipidemia Result Comment: [place] om Glucose Reference Range is dependent on time and content of last meal. Glucose of more than 200 mg/dL in a nonstressed, ambulatory subject supports the diagnosis of Diabetes Mellitus. ADA recommended reference range Performed By: #### L IPID, TSH3, CBC, CMP #### [facility] [address] Potassium [Moles/Vol] 4.2 mmol/L Normal 3.5-5.1 [facility] Comment on above: Order Comment: Reaso n for Exam Hyperlipidemia Performed By: #### L IPID, TSH3, CBC, CMP #### [facility] [address] Protein [Mass/Vol] 6.4 g/dL Normal 6.4-8.9 [facility] Comment on above: Order Comment: Reaso n for Exam Hyperlipidemia Performed By: #### L IPID, TSH3, CBC, CMP #### [facility] [address] [place] [address] Sodium [Moles/Vol] 141 mmol/L Normal 136-145 [facility] Comment on above: Order Comment: Reaso n for Exam Hyperlipidemia Performed By: #### L IPID, TSH3, CBC, CMP #### [facility] [address] [place] [address] Urea nitrogen [Mass/Vol] 17 mg/dL Normal 7-25 [facility] Comment on above: Order Comment: Reaso n for Exam Hyperlipidemia Performed By: #### L IPID, TSH3, CBC, CMP #### [facility] [address] [place] [address] Creatinine [Mass/volume] in Serum or PlasmaOrdered By: Prem Goel on 09-18-2023 Creatinine [Mass/Vol] 0.79 mg/dL 0.60-1.20 [facility] Eosinophils Auto (Bld) [#/Vo l]Ordered By: Prem Goel on 09-18-2023 Eosinophils (Bld) [#/Vol] 0.1 10*3/uL 0.0-0.[address] [facility] Eosinophils/100 WBC Auto (Bl d)Ordered By: Prem Goel on 09-18-2023 Eosinophils/100 WBC (Bld) 2.2 % . [facility] Erythrocyte distribution wid th Auto (RBC) [Ratio]Ordered By: Prem Goel on 09-18-2023 Erythrocyte distribution width (RBC) [Ratio] 13.9 % 11.9-15.[address] [facility] Globulin Calc (S) [Mass/Vol] Ordered By: Prem Goel on 09-18-2023 Globulin (S) [Mass/Vol] 2.4 g/dL [facility] Glucose [Mass/volume] in Ser um or PlasmaOrdered By: Prem Goel on 09-18-2023 Glucose [Mass/Vol] 90 mg/dL 70-100 [facility] Comment on above: ADA recommended refe rence rangeRandom Glucose Reference Range is dependent on time and content of last meal. Glucose of more than 200 mg/dL in a nonstressed, ambulatory subject supports the diagnosis of Diabetes Mellitus. Hematocrit Auto (Bld) [Volum e fraction]Ordered By: Prem Goel on 09-18-2023 Hematocrit (Bld) [Volume fraction] 44.9 % 34.0-46.[address] [facility] Hemoglobin [Mass/volume] in BloodOrdered By: Prem Goel on 09-18-2023 Hemoglobin (Bld) [Mass/Vol] 14.3 g/dL 11.8-15.[address] [facility] Leukocytes [#/volume] correc guillermina for nucleated erythrocytes in Blood by Automated counOrdered By: Prem Goel on 09-18-2023 WBC corrected for nucl RBC Auto (Bld) [#/Vol] 5.4 10*3/uL 3.8-11.[address] [facility] Lipid Panelon 09-18-2023 Cholesterol [Mass/Vol] 289 mg/dL High 140-200 Th e [facility] Comment on above: Order Comment: Reaso n for Exam Hyperlipidemia Result Comment: Chol less than 200 mg/dl low risk Chol 201-239 mg/dl borderline risk Chol 240 mg/dl and greater high risk Performed By: #### L IPID, TSH3, CBC, CMP #### [facility] [address] [place] [id number] [place] Cholesterol in HDL [Mass/Vol] 69 mg/dL Normal 23-92 [facility] Comment on above: Order Comment: Reaso n for Exam Hyperlipidemia Result Comment: HDL CHOL ATP-III CLASSIFICATION Cardiovascular Risk HDL > or equal to 60 mg/dL LOW HDL < 40 mg/dL HIGH Performed By: #### L IPID, TSH3, CBC, CMP #### [facility] [address] [id number] [place] Cholesterol.total/Araceli sterol in HDL [Mass ratio] 4.2 {ratio} Normal <5.0 [facility] Comment on above: Order Comment: Reaso n for Exam Hyperlipidemia Performed By: #### L IPID, TSH3, CBC, CMP #### [facility] [address] LDL Cholesterol,Calculated 197 mg/dL High 0-100 [facility] Comment on above: Order Comment: Reaso n for Exam Hyperlipidemia Result Comment: LDL ATP III CLASSIFICATION LDL less than 100 mg/dL Optimal LDL 100-129 mg/dL Near or above optimal LDL 130-159 mg/dL Borderline high LDL 160-189 mg/dL High LDL greater than 189 mg/dL Very high Performed By: #### L IPID, TSH3, CBC, CMP #### [facility] [address] Triglyceride w/Reflex 116 mg/dL Normal 0-149 [facility] Comment on above: Order Comment: Reaso n for Exam Hyperlipidemia Result Comment: TRIG ATP III CLASSIFICATION TRIG less than 150 mg/dL Normal TRIG 150-199 mg/dL Borderline high TRIG 200-500 mg/dL High TRIG greater than 500 mg/dL Very high Standard traceable to the Center for Disease Conrtrol and Prevention (CDC) test method. Performed By: #### L IPID, TSH3, CBC, CMP #### [facility] [address] VLDL CHOLESTEROL 23 mg/dL Normal [facility] Comment on above: Order Comment: Reaso n for Exam Hyperlipidemia Performed By: #### L IPID, TSH3, CBC, CMP #### [facility] [address] Lymphocytes Auto (Bld) [#/Vo l]Ordered By: Prem Goel on 09-18-2023 Lymphocytes (Bld) [#/Vol] 2.9 10*3/uL 1.00-4.[address] [facility] Lymphocytes/100 WBC Auto (Bl d)Ordered By: Prem Goel on 09-18-2023 Lymphocytes/100 WBC (Bld) 53.2 % . [facility] MCH Auto (RBC) [Entitic mass ]Ordered By: Prem Goel on 09-18-2023 MCH (RBC) [Entitic mass] 29.4 pg 24.7-34.[address] [facility] MCHC Auto (RBC) [Mass/Vol]Or dered By: Prem Goel on 09-18-2023 MCHC (RBC) [Mass/Vol] 31.9 g/dL 32.0-35.0 [facility] MCV Auto (RBC) [Entitic vol] Ordered By: Prem Goel on 09-18-2023 MCV (RBC) [Entitic vol] 92.3 fL 80-100 [facility] Monocytes Auto (Bld) [#/Vol] Ordered By: Prem Goel on 09-18-2023 Monocytes (Bld) [#/Vol] 0.4 10*3/uL 0.0-0.[address] [facility] Monocytes/100 WBC Auto (Bld) Ordered By: Prem Goel on 09-18-2023 Monocytes/100 WBC (Bld) 8.0 % . [facility] Neutrophils Auto (Bld) [#/Vo l]Ordered By: Prem Goel on 09-18-2023 Neutrophils (Bld) [#/Vol] 1.9 10*3/uL 1.8-7.[address] [facility] Neutrophils/100 WBC Auto (Bl d)Ordered By: Prem Goel on 09-18-2023 Neutrophils/100 WBC (Bld) 36.1 % . [facility] No Panel InformationOrdered By: Prem Goel on 09-18-2023 Estimated GFR (CKD-EPI) > 60.0 mL/Min [facility] Creatinine Clearance (Chem N/A [facility] Nucleated erythrocytes [Pres ence] in Blood by Automated countOrdered By: Prem Goel on 09-18-2023 Nucleated RBC Auto Ql (Bld) 0.2 /100{WBC} 0-0.[address] [facility] Platelet mean volume Auto (B ld) [Entitic vol]Ordered By: Prem Goel on 09-18-2023 Platelet mean volume (Bld) [Entitic vol] 10.4 fL 6.3-10.[address] [facility] Platelets Auto (Bld) [#/Vol] Ordered By: Prem Goel on 09-18-2023 Platelets (Bld) [#/Vol] 230 10*3/uL 150-[address] [facility] Potassium [Moles/volume] in Serum or PlasmaOrdered By: Prem Goel on 09-18-2023 Potassium [Moles/Vol] 4.2 mmol/L 3.5-5.1 [facility] Protein [Mass/volume] in Ser um or PlasmaOrdered By: Prem Goel on 09-18-2023 Protein [Mass/Vol] 6.4 g/dL 6.4-8.9 [facility] RBC Auto (Bld) [#/Vol]Ordere d By: Prem Goel on 09-18-2023 RBC (Bld) [#/Vol] 4.87 10*6/uL 3.60-5.00 [facility] Serum or plasma albumin/glob ulin mass ratioOrdered By: Prem Goel on 09-18-2023 Albumin/Globulin [Mass ratio] 1.7 {ratio} [facility] Serum or plasma anion gap de terminationOrdered By: Prem Goel on 09-18-2023 Anion gap [Moles/Vol] 12.3 mmol/L 6.0-15.0 [facility] Serum or plasma high density lipoprotein (HDL) cholesterol measurementOrdered By: Prem Goel on 09-18-2023 Cholesterol in HDL [Mass/Vol] 69 mg/dL 23-[address] [facility] Comment on above: HDL CHOL ATP-III CLA SSIFICATION Cardiovascular RiskHDL > or equal to 60 mg/dL LOWHDL < 40 mg/dL HIGH Serum or plasma total choles terol/high density lipoprotein (HDL) cholesterol mass ratOrdered By: Prem Goel on 09-18-2023 Cholesterol.total/Araceli sterol in HDL [Mass ratio] 4.2 {ratio} <5.[address] [facility] Sodium [Moles/volume] in Ser um or PlasmaOrdered By: Prem Goel on 09-18-2023 Sodium [Moles/Vol] 141 mmol/L 136-145 [facility] Thyroid Stimulating Hormoneo n 09-18-2023 TSH Qn 2.60 m[IU]/L Normal 0.45-5.33 [facility] Comment on above: Order Comment: Reaso n for Exam Hyperlipidemia Result Comment: PERF ORMED BY: [facility] [address] [place] [address] PATHOLOGIST E[employer]S TECHNICIAN BEV TALBERT M.D. Performed By: #### L IPID, TSH3, CBC, CMP #### [facility] [address] Thyrotropin [Units/volume] i n Serum or PlasmaOrdered By: Prem Goel on 09-18-2023 TSH Qn 2.60 m[IU]/L 0.45-5.[address] [facility] Triglyceride [Mass/volume] i n Serum or PlasmaOrdered By: Prem Goel on 09-18-2023 Triglyceride [Mass/Vol] 116 mg/dL 0-149 [facility] Comment on above: TRIG ATP III CLASSIF ICATIONTRIG less than 150 mg/dL NormalTRIG 150-199 mg/dL Borderline highTRIG 200-500 mg/dL High TRIG greater than 500 mg/dL Very highStandard traceable to the Center for Disease Conrtrol and Prevention (CDC) test method. Urea nitrogen [Mass/volume] in Serum or PlasmaOrdered By: Prem Goel on 09-18-2023 Urea nitrogen [Mass/Vol] 17 mg/dL 7-[address] [facility] WBC Auto (Bld) [#/Vol]Ordere d By: Prem Goel on 09-18-2023 WBC (Bld) [#/Vol] 5.4 10*3/uL 3.8-11.6 [facility] Basophils Auto (Bld) [#/Vol] on 08-07-2023 Basophils (Bld) [#/Vol] 0.0 10 3/uL 0.0-0.[address] [facility] Basophils/100 WBC Auto (Bld) on 08-07-2023 Basophils/100 WBC (Bld) 0.5 % 0.2-2.0 [facility] Eosinophils/100 WBC Auto (Bl d)on 08-07-2023 Eosinophils/100 WBC (Bld) 1.1 % 0.9-7.[address] [facility] Erythrocyte distribution wid th Auto (RBC) [Ratio]on 08-07-2023 Erythrocyte distribution width (RBC) [Ratio] 12.6 % 11.0-15.[address] [facility] Estimated glomerular filtrat ion rate (GFR) non- Americanon 08-07-2023 GFR/1.73 sq M.predicted among non-blacks MDRD (S/P/Bld) [Vol rate/Area] mL/min/{1.73_m2} >=[address] [facility] Globulin Calc (S) [Mass/Vol] on 08-07-2023 Globulin (S) [Mass/Vol] 3.8 g/dL [facility] Hematocrit Auto (Bld) [Volum e fraction]on 08-07-2023 Hematocrit (Bld) [Volume fraction] 48.4 % 36.0-48.[address] [facility] Hemoglobin [Mass/volume] in Bloodon 08-07-2023 Hemoglobin (Bld) [Mass/Vol] 15.4 g/dL 12.0-16.[address] [facility] Laboratory - Chemistry and C hemistry - challengeon 08-07-2023 Albumin [Mass/Vol] 3.4 g/dL 3.4-5.0 [facility] ALP [Catalytic activity/Vol] 118 U/L 46-[address] [facility] ALT [Catalytic activity/Vol] 23 U/L 14-[address] [facility] AST [Catalytic activity/Vol] 20 U/L 15-[address] [facility] Bilirubin [Mass/Vol] 0.4 mg/dL 0.2-1.[address] [facility] Calcium [Mass/Vol] 9.4 mg/dL 8.5-10.1 [facility] Chloride [Moles/Vol] 106 mmol/L 98-[address] [facility] CO2 [Moles/Vol] 28.0 mmol/L 21.0-32.0 [facility] Creatinine [Mass/Vol] 0.80 mg/dL 0.55-1.02 [facility] GFR/1.73 sq M.predicted MDRD (S/P/Bld) [Vol rate/Area] mL/min/{1.73_m2} >=[address] [facility] Glucose [Mass/Vol] 121 mg/dL 74-106 [facility] Potassium [Moles/Vol] 3.9 mmol/L 3.5-5.1 [facility] Protein [Mass/Vol] 7.2 g/dL 6.4-8.2 [facility] Sodium [Moles/Vol] 142 mmol/L 136-145 [facility] Urea nitrogen [Mass/Vol] 20.0 mg/dL 7.0-18.[address] [facility] Urea nitrogen/Creatinine [Mass ratio] 25.0 mg/mg [facility] Laboratory - Hematology and Cell countson 08-07-2023 Immature granulocytes/100 WBC (Bld) 0.3 % 0.0-0.[address] [facility] Leukocytes [#/volume] correc guillermina for nucleated erythrocytes in Blood by Automated counon 08-07-2023 WBC corrected for nucl RBC Auto (Bld) [#/Vol] 7.5 10 3/uL 4.0-11.[address] [facility] Lymphocytes Auto (Bld) [#/Vo l]on 08-07-2023 Lymphocytes (Bld) [#/Vol] 3.4 10 3/uL 1.2-3.[address] [facility] Lymphocytes/100 WBC Auto (Bl d)on 08-07-2023 Lymphocytes/100 WBC (Bld) 45.6 % 20.5-60.[address] [facility] MCH Auto (RBC) [Entitic mass ]on 08-07-2023 MCH (RBC) [Entitic mass] 29.7 pg 26.7-34.[address] [facility] MCHC Auto (RBC) [Mass/Vol]on 08-07-2023 MCHC (RBC) [Mass/Vol] 31.8 g/dL 29.9-35.2 [facility] MCV Auto (RBC) [Entitic vol] on 08-07-2023 MCV (RBC) [Entitic vol] 93.3 fL 81.0-99.0 [facility] Monocytes Auto (Bld) [#/Vol] on 08-07-2023 Monocytes (Bld) [#/Vol] 0.7 10 3/uL 0.3-0.[address] [facility] Monocytes/100 WBC Auto (Bld) on 08-07-2023 Monocytes/100 WBC (Bld) 8.6 % 1.7-12.0 [facility] Neutrophils Auto (Bld) [#/Vo l]on 08-07-2023 Neutrophils (Bld) [#/Vol] 3.3 10 3/uL 1.4-6.[address] [facility] Neutrophils/100 WBC Auto (Bl d)on 08-07-2023 Neutrophils/100 WBC (Bld) 43.9 % 43.0-75.[address] [facility] No Panel Informationon 08-06 Eosinophils # (Auto) 0.1 10 3/uL 0.0-0.7 [facility] Immature Granulocyte # (Auto) 0.02 10 3/uL 0.00-0.[address] [facility] Platelet mean volume Auto (B ld) [Entitic vol]on 08-07-2023 Platelet mean volume (Bld) [Entitic vol] 12.5 fL 9.5-13.[address] [facility] Platelets Auto (Bld) [#/Vol] on 08-07-2023 Platelets (Bld) [#/Vol] 238 10 3/uL 150-[address] [facility] RBC Auto (Bld) [#/Vol]on RBC (Bld) [#/Vol] 5.19 10 6/uL 4.20-5.40 [facility] Serum or plasma albumin/glob ulin mass ratioon 08-07-2023 Albumin/Globulin [Mass ratio] 0.9 {ratio} [facility] Serum or plasma anion gap de terminationon 08-07-2023 Anion gap [Moles/Vol] 11.9 mmol/L [facility] A1C with Estimated Average G luon 03-12-2023 Glucose [Mass/Vol] 126 mg/dL Normal [facility] Comment on above: Order Comment: Reaso n for Exam Hyperglycemia Result Comment: PERF ORMED BY: [facility] [address] [place] [address] PATHOLOGIST [employer] TECHNICIAN BEV TALBERT M.D. Performed By: #### L IPID, TSH3, CBC, CMP #### [facility] [address] HbA1c (Bld) [Mass fraction] 6.0 % High 4.3-5.6 [facility] Comment on above: Order Comment: Reaso n for Exam Hyperglycemia Result Comment: Incr eased risk for diabetes: 5.7 - 6.4 diabetes: >6.4 glycemic control for adults with diabetes: <7.0 Performed By: #### L IPID, TSH3, CBC, CMP #### [facility] [address] Alanine aminotransferase [En zymatic activity/volume] in Serum or PlasmaOrdered By: Prem Goel on 03-12-2023 ALT [Catalytic activity/Vol] 11 U/L 7-[address] [facility] Albumin [Mass/volume] in Ser um or Plasma by Bromocresol green (BCG) dye binding methoOrdered By: Prem Goel on 03-12-2023 Albumin BCG dye [Mass/Vol] 3.9 g/dL 3.5-5.[address] [facility] Alkaline phosphatase [Enzyma tic activity/volume] in Serum or PlasmaOrdered By: Prem Goel on 03-12-2023 ALP [Catalytic activity/Vol] 89 U/L 34-[address] [facility] Aspartate aminotransferase [ Enzymatic activity/volume] in Serum or PlasmaOrdered By: Prem Goel on 03-12-2023 AST [Catalytic activity/Vol] 15 U/L 13-[address] [facility] Basophils Auto (Bld) [#/Vol] Ordered By: Prem Goel on 03-12-2023 Basophils (Bld) [#/Vol] 0.0 10*3/uL 0.0-0.[address] [facility] Basophils/100 WBC Auto (Bld) Ordered By: Prem Goel on 03-12-2023 Basophils/100 WBC (Bld) 0.7 % . [facility] Bilirubin.total [Mass/volume ] in Serum or PlasmaOrdered By: Prem Goel on 03-12-2023 Bilirubin [Mass/Vol] 0.6 mg/dL 0.3-1.[address] [facility] Calcium [Mass/volume] in Ser um or PlasmaOrdered By: Prem Goel on 03-12-2023 Calcium [Mass/Vol] 9.4 mg/dL 8.6-10.3 [facility] Carbon dioxide, total [Moles /volume] in Serum or PlasmaOrdered By: Prem Goel on 03-12-2023 CO2 [Moles/Vol] 28.2 mmol/L 21.0-31.0 [facility] Chloride [Moles/volume] in S dede or PlasmaOrdered By: Prem Goel on 03-12-2023 Chloride [Moles/Vol] 107 mmol/L 98-[address] [facility] Cholesterol [Mass/volume] in Serum or PlasmaOrdered By: Prem Goel on 03-12-2023 Cholesterol [Mass/Vol] 228 mg/dL 140-200 [facility] Comment on above: Chol less than 200 m g/dl low riskChol 201-239 mg/dl borderline riskChol 240 mg/dl and greater high risk Cholesterol in LDL Calc [Mas s/Vol]Ordered By: Prem Goel on 03-12-2023 Cholesterol in LDL [Mass/Vol] 146 mg/dL 0-[address] [facility] Comment on above: LDL ATP III CLASSIFI CATIONLDL less than 100 mg/dL OptimalLDL 100-129 mg/dL Near or above optimalLDL 130-159 mg/dL Borderline highLDL 160-189 mg/dL HighLDL greater than 189 mg/dL Very high Cholesterol in VLDL Calc [Ma ss/Vol]Ordered By: Prem Goel on 03-12-2023 Cholesterol in VLDL [Mass/Vol] 15 mg/dL [facility] Complete Blood Count Auto Di ffon 03-12-2023 Basophils (Bld) [#/Vol] 0.0 10*3/uL Normal 0.0-0.2 [facility] Comment on above: Order Comment: Reaso n for Exam Hyperlipidemia Result Comment: PERF ORMED BY: [place] [id number] PATHOLOGIST [employer] TECHNICIAN BEV TALBERT M.D. Performed By: #### C BC #### [address] Basophils/100 WBC (Bld) 0.7 % Normal . T [facility] Comment on above: Order Comment: Reaso n for Exam Hyperlipidemia Performed By: #### C BC #### [place] [address] [place] Eosinophils (Bld) [#/Vol] 0.1 10*3/uL Normal 0.0-0.45 [facility] Comment on above: Order Comment: Reaso n for Exam Hyperlipidemia Performed By: #### C BC #### [place] [address] [place] Eosinophils/100 WBC (Bld) 2.3 % Normal . [facility] Comment on above: Order Comment: Reaso n for Exam Hyperlipidemia Performed By: #### C BC #### [address] Erythrocyte distribution width (RBC) [Ratio] 12.9 % Normal 11.9-15.3 [facility] Comment on above: Order Comment: Reaso n for Exam Hyperlipidemia Performed By: #### C BC #### [address] Hematocrit (Bld) [Volume fraction] 45.2 % Normal 34.0-46.4 [facility] Comment on above: Order Comment: Reaso n for Exam Hyperlipidemia Performed By: #### C BC #### [place] [address] [place] Hemoglobin (Bld) [Mass/Vol] 14.9 g/dL Normal 11.8-15.4 [facility] Comment on above: Order Comment: Reaso n for Exam Hyperlipidemia Performed By: #### C BC #### [place] [address] [place] Lymphocytes (Bld) [#/Vol] 2.6 10*3/uL Normal 1.00-4.8 [facility] Comment on above: Order Comment: Reaso n for Exam Hyperlipidemia Performed By: #### C BC #### [place] [id number] [place] Lymphocytes/100 WBC (Bld) 42.3 % Normal . [facility] Comment on above: Order Comment: Reaso n for Exam Hyperlipidemia Performed By: #### C BC #### [address] MCH (RBC) [Entitic mass] 29.8 pg Normal 24.7-34.3 [facility] Comment on above: Order Comment: Reaso n for Exam Hyperlipidemia Performed By: #### C BC #### [address] MCV (RBC) [Entitic vol] 90.5 fL Normal 80-100 [facility] Comment on above: Order Comment: Reaso n for Exam Hyperlipidemia Performed By: #### C BC #### [address] Mean Corpuscular HGB Conc 33.0 g/dL Normal 32.0-35.0 [facility] Comment on above: Order Comment: Reaso n for Exam Hyperlipidemia Performed By: #### C BC #### [address] Monocytes (Bld) [#/Vol] 0.6 10*3/uL Normal 0.0-0.8 [facility] Comment on above: Order Comment: Reaso n for Exam Hyperlipidemia Performed By: #### C BC #### [address] Monocytes/100 WBC (Bld) 9.1 % Normal . [facility] Comment on above: Order Comment: Reaso n for Exam Hyperlipidemia Performed By: #### C BC #### [address] Neutrophils (Bld) [#/Vol] 2.8 10*3/uL Normal 1.8-7.7 [facility] Comment on above: Order Comment: Reaso n for Exam Hyperlipidemia Performed By: #### C BC #### [address] Neutrophils/100 WBC (Bld) 45.6 % Normal . [facility] Comment on above: Order Comment: Reaso n for Exam Hyperlipidemia Performed By: #### C BC #### [address] NRBC% 0.1 /100{WBC} Normal 0-0.5 [facility] Comment on above: Order Comment: Reaso n for Exam Hyperlipidemia Performed By: #### C BC #### [address] Platelet mean volume (Bld) [Entitic vol] 10.2 fL Normal 6.3-10.7 [facility] Comment on above: Order Comment: Reaso n for Exam Hyperlipidemia Performed By: #### C BC #### [address] Platelets (Bld) [#/Vol] 201 10*3/uL Normal 150-450 [facility] Comment on above: Order Comment: Reaso n for Exam Hyperlipidemia Performed By: #### C BC #### [address] RBC (Bld) [#/Vol] 4.99 10*6/uL Normal 3.60-5.00 [facility] Comment on above: Order Comment: Reaso n for Exam Hyperlipidemia Performed By: #### C BC #### [address] WBC (Bld) [#/Vol] 6.1 10*3/uL Normal 3.8-11.6 [facility] Comment on above: Order Comment: Reaso n for Exam Hyperlipidemia Performed By: #### C BC #### [address] Comprehensive Metabolic Pane [place] 03-12-2023 Albumin [Mass/Vol] 3.9 g/dL Normal 3.5-5.7 [facility] Comment on above: Order Comment: Reaso n for Exam Hyperlipidemia Performed By: #### T SH3, LIPID, CMP #### [address] Albumin/Globulin [Mass ratio] 1.8 {ratio} Normal [facility] Comment on above: Order Comment: Reaso n for Exam Hyperlipidemia Performed By: #### T SH3, LIPID, CMP #### [facility] [address] [place] [address] ALP [Catalytic activity/Vol] 89 U/L Normal 34-104 [facility] Comment on above: Order Comment: Reaso n for Exam Hyperlipidemia Performed By: #### T SH3, LIPID, CMP #### [facility] [address] [place] [address] ALT [Catalytic activity/Vol] 11 U/L Normal 7-52 [facility] Comment on above: Order Comment: Reaso n for Exam Hyperlipidemia Performed By: #### T SH3, LIPID, CMP #### [facility] [address] [place] [address] Anion gap [Moles/Vol] 10.1 mmol/L Normal 6.0-15.0 [facility] Comment on above: Order Comment: Reaso n for Exam Hyperlipidemia Performed By: #### T SH3, LIPID, CMP #### [facility] [address] [place] [address] AST [Catalytic activity/Vol] 15 U/L Normal 13-39 [facility] Comment on above: Order Comment: Reaso n for Exam Hyperlipidemia Performed By: #### T SH3, LIPID, CMP #### [facility] [address] [place] [address] Bilirubin [Mass/Vol] 0.6 mg/dL Normal 0.3-1.0 [facility] Comment on above: Order Comment: Reaso n for Exam Hyperlipidemia Performed By: #### T SH3, LIPID, CMP #### [facility] [address] [place] [address] [place] Calcium [Mass/Vol] 9.4 mg/dL Normal 8.6-10.3 [facility] Comment on above: Order Comment: Reaso n for Exam Hyperlipidemia Performed By: #### T SH3, LIPID, CMP #### [facility] [address] [place] [address] [place] Chloride [Moles/Vol] 107 mmol/L Normal 98-107 [facility] Comment on above: Order Comment: Reaso n for Exam Hyperlipidemia Performed By: #### T SH3, LIPID, CMP #### [address] [place] [address] [place] CO2 [Moles/Vol] 28.2 mmol/L Normal 21.0-31.0 [facility] Comment on above: Order Comment: Reaso n for Exam Hyperlipidemia Performed By: #### T SH3, LIPID, CMP #### [address] Creatinine [Mass/Vol] 0.77 mg/dL Normal 0.60-1.20 [facility] Comment on above: Order Comment: Reaso n for Exam Hyperlipidemia Performed By: #### T SH3, LIPID, CMP #### [place] [address] [place] GFR/1.73 sq M.predicted MDRD (S/P/Bld) [Vol rate/Area] mL/min/{1.73_m2} Normal [facility] Comment on above: Order Comment: Reaso n for Exam Hyperlipidemia Performed By: #### T SH3, LIPID, CMP #### [address] Globulin (S) [Mass/Vol] 2.2 g/dL Normal [facility] Comment on above: Order Comment: Reaso n for Exam Hyperlipidemia Performed By: #### T SH3, LIPID, CMP #### [address] Glucose [Mass/Vol] 96 mg/dL Normal 70-100 [facility] Comment on above: Order Comment: Reaso n for Exam Hyperlipidemia Result Comment: [place] Glucose Reference Range is dependent on time and content of last meal. Glucose of more than 200 mg/dL in a nonstressed, ambulatory subject supports the diagnosis of Diabetes Mellitus. ADA recommended reference range Performed By: #### T SH3, LIPID, CMP #### [address] Potassium [Moles/Vol] 4.3 mmol/L Normal 3.5-5.1 [facility] Comment on above: Order Comment: Reaso n for Exam Hyperlipidemia Performed By: #### T SH3, LIPID, CMP #### [place] [address] [place] Protein [Mass/Vol] 6.1 g/dL Low 6.4-8.9 [facility] Comment on above: Order Comment: Reaso n for Exam Hyperlipidemia Performed By: #### T SH3, LIPID, CMP #### [facility] [address] [place] [address] [place] Sodium [Moles/Vol] 141 mmol/L Normal 136-145 [facility] Comment on above: Order Comment: Reaso n for Exam Hyperlipidemia Performed By: #### T SH3, LIPID, CMP #### [facility] [address] Urea nitrogen [Mass/Vol] 18 mg/dL Normal 7-25 [facility] Comment on above: Order Comment: Reaso n for Exam Hyperlipidemia Performed By: #### T SH3, LIPID, CMP #### [facility] [address] Creatinine [Mass/volume] in Serum or PlasmaOrdered By: Prem Goel on 03-12-2023 Creatinine [Mass/Vol] 0.77 mg/dL 0.60-1.20 [facility] Eosinophils Auto (Bld) [#/Vo l]Ordered By: Prem Goel on 03-12-2023 Eosinophils (Bld) [#/Vol] 0.1 10*3/uL 0.0-0.[address] [facility] Eosinophils/100 WBC Auto (Bl d)Ordered By: Prem Goel on 03-12-2023 Eosinophils/100 WBC (Bld) 2.3 % . [facility] Erythrocyte distribution wid th Auto (RBC) [Ratio]Ordered By: Prem Goel on 03-12-2023 Erythrocyte distribution width (RBC) [Ratio] 12.9 % 11.9-15.[address] [facility] Globulin Calc (S) [Mass/Vol] Ordered By: Prem Goel on 03-12-2023 Globulin (S) [Mass/Vol] 2.2 g/dL [facility] Glucose [Mass/volume] in Ser um or PlasmaOrdered By: Prem Goel on 03-12-2023 Glucose [Mass/Vol] 96 mg/dL 70-100 [facility] Comment on above: ADA recommended refe rence rangeRandom Glucose Reference Range is dependent on time and content of last meal. Glucose of more than 200 mg/dL in a nonstressed, ambulatory subject supports the diagnosis of Diabetes Mellitus. Hematocrit Auto (Bld) [Volum e fraction]Ordered By: Prem Goel on 03-12-2023 Hematocrit (Bld) [Volume fraction] 45.2 % 34.0-46.[address] [facility] Hemoglobin [Mass/volume] in BloodOrdered By: Prem Goel on 03-12-2023 Hemoglobin (Bld) [Mass/Vol] 14.9 g/dL 11.8-15.[address] [facility] Leukocytes [#/volume] correc guillermina for nucleated erythrocytes in Blood by Automated counOrdered By: Prem Goel on 03-12-2023 WBC corrected for nucl RBC Auto (Bld) [#/Vol] 6.1 10*3/uL 3.8-11.[address] [facility] Lipid Panelon 03-12-2023 Cholesterol [Mass/Vol] 228 mg/dL High 140-200 Th e [facility] Comment on above: Order Comment: Reaso n for Exam Hyperlipidemia Result Comment: Chol less than 200 mg/dl low risk Chol 201-239 mg/dl borderline risk Chol 240 mg/dl and greater high risk Performed By: #### L IPID, TSH3, CBC, CMP #### [facility] [address] Cholesterol in HDL [Mass/Vol] 66 mg/dL Normal 23-92 [facility] Comment on above: Order Comment: Reaso n for Exam Hyperlipidemia Result Comment: HDL CHOL ATP-III CLASSIFICATION Cardiovascular Risk HDL > or equal to 60 mg/dL LOW HDL < 40 mg/dL HIGH Performed By: #### L IPID, TSH3, CBC, CMP #### [facility] [address] [place] [id number] [facility] Cholesterol.total/Araceli sterol in HDL [Mass ratio] 3.5 {ratio} Normal <5.0 [facility] Comment on above: Order Comment: Reaso n for Exam Hyperlipidemia Performed By: #### L IPID, TSH3, CBC, CMP #### [facility] [address] LDL Cholesterol,Calculated 146 mg/dL High 0-100 [facility] Comment on above: Order Comment: Reaso n for Exam Hyperlipidemia Result Comment: LDL ATP III CLASSIFICATION LDL less than 100 mg/dL Optimal LDL 100-129 mg/dL Near or above optimal LDL 130-159 mg/dL Borderline high LDL 160-189 mg/dL High LDL greater than 189 mg/dL Very high Performed By: #### L IPID, TSH3, CBC, CMP #### [facility] [address] Triglyceride w/Reflex 78 mg/dL Normal 0-149 [facility] Comment on above: Order Comment: Reaso n for Exam Hyperlipidemia Result Comment: TRIG ATP III CLASSIFICATION TRIG less than 150 mg/dL Normal TRIG 150-199 mg/dL Borderline high TRIG 200-500 mg/dL High TRIG greater than 500 mg/dL Very high Standard traceable to the Center for Disease Conrtrol and Prevention (CDC) test method. Performed By: #### L IPID, TSH3, CBC, CMP #### [facility] [address] VLDL CHOLESTEROL 15 mg/dL Normal [facility] Comment on above: Order Comment: Reaso n for Exam Hyperlipidemia Performed By: #### L IPID, TSH3, CBC, CMP #### [facility] [address] Lymphocytes Auto (Bld) [#/Vo l]Ordered By: Prem Goel on 03-12-2023 Lymphocytes (Bld) [#/Vol] 2.6 10*3/uL 1.00-4.[address] [facility] Lymphocytes/100 WBC Auto (Bl d)Ordered By: Prem Goel on 03-12-2023 Lymphocytes/100 WBC (Bld) 42.3 % . [facility] MCH Auto (RBC) [Entitic mass ]Ordered By: Prem Goel on 03-12-2023 MCH (RBC) [Entitic mass] 29.8 pg 24.7-34.[address] [facility] MCHC Auto (RBC) [Mass/Vol]Or dered By: Prem Goel on 10-05-2023 MCHC (RBC) [Mass/Vol] 33.0 g/dL 32.0-35.0 [facility] MCV Auto (RBC) [Entitic vol] Ordered By: Prem Goel on 03-12-2023 MCV (RBC) [Entitic vol] 90.5 fL 80-100 [facility] Monocytes Auto (Bld) [#/Vol] Ordered By: Prem Goel on 03-12-2023 Monocytes (Bld) [#/Vol] 0.6 10*3/uL 0.0-0.[address] [facility] Monocytes/100 WBC Auto (Bld) Ordered By: Prem Goel on 03-12-2023 Monocytes/100 WBC (Bld) 9.1 % . [facility] Neutrophils Auto (Bld) [#/Vo l]Ordered By: Prem Goel on 03-12-2023 Neutrophils (Bld) [#/Vol] 2.8 10*3/uL 1.8-7.7 [facility] [facility] Neutrophils/100 WBC Auto (Bl d)Ordered By: Prem Goel on 03-12-2023 Neutrophils/100 WBC (Bld) 45.6 % . [facility] No Panel InformationOrdered By: Prem Goel on 03-12-2023 Estimated GFR (CKD-EPI) > 60.0 mL/Min [facility] Creatinine Clearance (Chem N/A [facility] Nucleated erythrocytes [Pres ence] in Blood by Automated countOrdered By: Prem Goel on 03-12-2023 Nucleated RBC Auto Ql (Bld) 0.1 /100{WBC} 0-0.[address] [facility] Platelet mean volume Auto (B ld) [Entitic vol]Ordered By: Prem Goel on 03-12-2023 Platelet mean volume (Bld) [Entitic vol] 10.2 fL 6.3-10.[address] [facility] Platelets Auto (Bld) [#/Vol] Ordered By: Prem Goel on 03-12-2023 Platelets (Bld) [#/Vol] 201 10*3/uL 150-[address] [facility] Potassium [Moles/volume] in Serum or PlasmaOrdered By: Prem Goel on 03-12-2023 Potassium [Moles/Vol] 4.3 mmol/L 3.5-5.1 [facility] Protein [Mass/volume] in Ser um or PlasmaOrdered By: Prem Goel on 03-12-2023 Protein [Mass/Vol] 6.1 g/dL 6.4-8.9 [facility] RBC Auto (Bld) [#/Vol]Ordere d By: Prem Goel on 03-12-2023 RBC (Bld) [#/Vol] 4.99 10*6/uL 3.60-5.00 [facility] Serum or plasma albumin/glob ulin mass ratioOrdered By: Prem Goel on 03-12-2023 Albumin/Globulin [Mass ratio] 1.8 {ratio} [facility] Serum or plasma anion gap de terminationOrdered By: Prem Goel on 03-12-2023 Anion gap [Moles/Vol] 10.1 mmol/L 6.0-15.0 [facility] Serum or plasma high density lipoprotein (HDL) cholesterol measurementOrdered By: Prem Goel on 03-12-2023 Cholesterol in HDL [Mass/Vol] 66 mg/dL 23-[address] [facility] Comment on above: HDL CHOL ATP-III CLA SSIFICATION Cardiovascular RiskHDL > or equal to 60 mg/dL LOWHDL < 40 mg/dL HIGH Serum or plasma total choles terol/high density lipoprotein (HDL) cholesterol mass ratOrdered By: Prem Goel on 03-12-2023 Cholesterol.total/Araceli sterol in HDL [Mass ratio] 3.5 {ratio} <5.[address] [facility] Sodium [Moles/volume] in Ser um or PlasmaOrdered By: Prem Goel on 03-12-2023 Sodium [Moles/Vol] 141 mmol/L 136-145 [facility] Thyroid Stimulating Hormoneo n 03-12-2023 TSH Qn 1.91 m[IU]/L Normal 0.45-5.33 [facility] Comment on above: Order Comment: Reaso n for Exam Hyperlipidemia Result Comment: PERF ORMED BY: [facility] [address] [place] [address] PATHOLOGIST [employer]LECT[employer]S TECHNICIAN BEV TALBERT M.D. Performed By: #### L IPID, TSH3, CBC, CMP #### [facility] [address] [place] [address] Thyrotropin [Units/volume] i n Serum or PlasmaOrdered By: Prem Goel on 03-12-2023 TSH Qn 1.91 m[IU]/L 0.45-5.[address] [facility] Triglyceride [Mass/volume] i n Serum or PlasmaOrdered By: Prem Goel on 03-12-2023 Triglyceride [Mass/Vol] 78 mg/dL 0-149 [facility] Comment on above: TRIG ATP III CLASSIF ICATIONTRIG less than 150 mg/dL NormalTRIG 150-199 mg/dL Borderline highTRIG 200-500 mg/dL High TRIG greater than 500 mg/dL Very highStandard traceable to the Center for Disease Conrtrol and Prevention (CDC) test method. Urea nitrogen [Mass/volume] in Serum or PlasmaOrdered By: Prem Goel on 03-12-2023 Urea nitrogen [Mass/Vol] 18 mg/dL 12-[address] [facility] WBC Auto (Bld) [#/Vol]Ordere d By: Prem Goel on 03-12-2023 WBC (Bld) [#/Vol] 6.1 10*3/uL 3.8-11.6 [facility] A1C with Estimated Average G luon 10-30-2022 Glucose [Mass/Vol] 128 mg/dL Normal [facility] Comment on above: Order Comment: Reaso n for Exam Hyperglycemia Result Comment: PERF ORMED BY: [place] [address] PATHOLOGIST ELECTRICAL CONTR[employer]S TECHNICIAN BEV TALBERT M.D. Performed By: #### A 1C WT eA #### [address] HbA1c (Bld) [Mass fraction] 6.1 % High 4.3-5.6 [facility] Comment on above: Order Comment: Reaso n for Exam Hyperglycemia Result Comment: Incr eased risk for diabetes: 5.7 - 6.4 diabetes: >6.4 glycemic control for adults with diabetes: <7.0 Performed By: #### A 1C WTH eA #### [address] Complete Blood Count Auto Di ffon 10-30-2022 Basophils (Bld) [#/Vol] 0.0 10*3/uL Normal 0.0-0.2 [facility] Comment on above: Order Comment: Reaso n for Exam Hyperlipidemia Result Comment: PERF ORMED BY: [place] [address] PATHOLOGIST ELECTRICAL CONTR[employer] TECHNICIAN BEV TALBERT M.D. Performed By: #### L IPID, TSH3, CBC, CMP #### [address] Basophils/100 WBC (Bld) 0.6 % Normal . T [facility] Comment on above: Order Comment: Reaso n for Exam Hyperlipidemia Performed By: #### L IPID, TSH3, CBC, CMP #### [address] Eosinophils (Bld) [#/Vol] 0.5 10*3/uL High 0.0-0.45 [facility] Comment on above: Order Comment: Reaso n for Exam Hyperlipidemia Performed By: #### L IPID, TSH3, CBC, CMP #### [address] Eosinophils/100 WBC (Bld) 8.1 % Normal . [facility] Comment on above: Order Comment: Reaso n for Exam Hyperlipidemia Performed By: #### L IPID, TSH3, CBC, CMP #### [address] Erythrocyte distribution width (RBC) [Ratio] 13.8 % Normal 11.9-15.3 [facility] Comment on above: Order Comment: Reaso n for Exam Hyperlipidemia Performed By: #### L IPID, TSH3, CBC, CMP #### [address] Hematocrit (Bld) [Volume fraction] 43.9 % Normal 34.0-46.4 [facility] Comment on above: Order Comment: Reaso n for Exam Hyperlipidemia Performed By: #### L IPID, TSH3, CBC, CMP #### [address] Hemoglobin (Bld) [Mass/Vol] 14.6 g/dL Normal 11.8-15.4 [facility] Comment on above: Order Comment: Reaso n for Exam Hyperlipidemia Performed By: #### L IPID, TSH3, CBC, CMP #### [address] Lymphocytes (Bld) [#/Vol] 1.5 10*3/uL Normal 1.00-4.8 [facility] Comment on above: Order Comment: Reaso n for Exam Hyperlipidemia Performed By: #### L IPID, TSH3, CBC, CMP #### [address] Lymphocytes/100 WBC (Bld) 27.1 % Normal . [facility] Comment on above: Order Comment: Reaso n for Exam Hyperlipidemia Performed By: #### L IPID, TSH3, CBC, CMP #### [address] MCH (RBC) [Entitic mass] 30.0 pg Normal 24.7-34.3 [facility] Comment on above: Order Comment: Reaso n for Exam Hyperlipidemia Performed By: #### L IPID, TSH3, CBC, CMP #### [address] MCV (RBC) [Entitic vol] 90.4 fL Normal 80-100 T [facility] Comment on above: Order Comment: Reaso n for Exam Hyperlipidemia Performed By: #### L IPID, TSH3, CBC, CMP #### [address] Mean Corpuscular HGB Conc 33.3 g/dL Normal 32.0-35.0 [facility] Comment on above: Order Comment: Reaso n for Exam Hyperlipidemia Performed By: #### L IPID, TSH3, CBC, CMP #### [facility] [address] [place] [address] [place] Monocytes (Bld) [#/Vol] 0.6 10*3/uL Normal 0.0-0.8 [facility] Comment on above: Order Comment: Reaso n for Exam Hyperlipidemia Performed By: #### L IPID, TSH3, CBC, CMP #### [facility] [address] [place] [id number] [place] Monocytes/100 WBC (Bld) 10.7 % Normal . T he [facility] Comment on above: Order Comment: Reaso n for Exam Hyperlipidemia Performed By: #### L IPID, TSH3, CBC, CMP #### [facility] [address] [place] [address] [place] Neutrophils (Bld) [#/Vol] 3.0 10*3/uL Normal 1.8-7.7 [facility] Comment on above: Order Comment: Reaso n for Exam Hyperlipidemia Performed By: #### L IPID, TSH3, CBC, CMP #### [facility] [address] [place] [address] [place] Neutrophils/100 WBC (Bld) 53.5 % Normal . [facility] Comment on above: Order Comment: Reaso n for Exam Hyperlipidemia Performed By: #### L IPID, TSH3, CBC, CMP #### [facility] [address] [place] [id number] [place] NRBC% 0.1 /100{WBC} Normal 0-0.5 [facility] Comment on above: Order Comment: Reaso n for Exam Hyperlipidemia Performed By: #### L IPID, TSH3, CBC, CMP #### [facility] [address] [place] [id number] [place] Platelet mean volume (Bld) [Entitic vol] 9.7 fL Normal 6.3-10.7 [facility] Comment on above: Order Comment: Reaso n for Exam Hyperlipidemia Performed By: #### L IPID, TSH3, CBC, CMP #### [facility] [address] [place] [address] [place] Platelets (Bld) [#/Vol] 196 10*3/uL Normal 150-450 [facility] Comment on above: Order Comment: Reaso n for Exam Hyperlipidemia Performed By: #### L IPID, TSH3, CBC, CMP #### [facility] [address] RBC (Bld) [#/Vol] 4.86 10*6/uL Normal 3.60-5.00 [facility] Comment on above: Order Comment: Reaso n for Exam Hyperlipidemia Performed By: #### L IPID, TSH3, CBC, CMP #### [address] WBC (Bld) [#/Vol] 5.7 10*3/uL Normal 3.8-11.6 [facility] Comment on above: Order Comment: Reaso n for Exam Hyperlipidemia Performed By: #### L IPID, TSH3, CBC, CMP #### [address] Comprehensive Metabolic Pane [facility] 10-30-2022 Albumin [Mass/Vol] 3.6 g/dL Normal 3.5-5.7 [facility] Comment on above: Order Comment: Reaso n for Exam Hyperlipidemia Performed By: #### T SH3, CMP, LIPID #### [address] Albumin/Globulin [Mass ratio] 1.2 {ratio} Normal [facility] Comment on above: Order Comment: Reaso n for Exam Hyperlipidemia Performed By: #### T SH3, CMP, LIPID #### [address] ALP [Catalytic activity/Vol] 102 U/L Normal 34-104 [facility] Comment on above: Order Comment: Reaso n for Exam Hyperlipidemia Performed By: #### T SH3, CMP, LIPID #### [address] ALT [Catalytic activity/Vol] 14 U/L Normal 7-52 [facility] Comment on above: Order Comment: Reaso n for Exam Hyperlipidemia Performed By: #### T SH3, CMP, LIPID #### [place] [id number] [place] Anion gap [Moles/Vol] 9.0 mmol/L Normal 6.0-15.0 [facility] Comment on above: Order Comment: Reaso n for Exam Hyperlipidemia Performed By: #### T SH3, CMP, LIPID #### [facility] [address] [place] [address] AST [Catalytic activity/Vol] 18 U/L Normal 13-39 [facility] Comment on above: Order Comment: Reaso n for Exam Hyperlipidemia Performed By: #### T SH3, CMP, LIPID #### [facility] [address] [place] [address] Bilirubin [Mass/Vol] 0.5 mg/dL Normal 0.3-1.0 [facility] Comment on above: Order Comment: Reaso n for Exam Hyperlipidemia Performed By: #### T SH3, CMP, LIPID #### [facility] [address] [place] [address] [place] Calcium [Mass/Vol] 9.0 mg/dL Normal 8.6-10.3 [facility] Comment on above: Order Comment: Reaso n for Exam Hyperlipidemia Performed By: #### T SH3, CMP, LIPID #### [facility] [address] [place] [address] [place] Chloride [Moles/Vol] 106 mmol/L Normal 98-107 [facility] Comment on above: Order Comment: Reaso n for Exam Hyperlipidemia Performed By: #### T SH3, CMP, LIPID #### [facility] [address] [place] [address] [place] CO2 [Moles/Vol] 30.8 mmol/L Normal 21.0-31.0 [facility] Comment on above: Order Comment: Reaso n for Exam Hyperlipidemia Performed By: #### T SH3, CMP, LIPID #### [facility] [address] [place] [address] [place] Creatinine [Mass/Vol] 0.75 mg/dL Normal 0.60-1.20 [facility] Comment on above: Order Comment: Reaso n for Exam Hyperlipidemia Performed By: #### T SH3, CMP, LIPID #### [place] [address] [place] GFR/1.73 sq M.predicted MDRD (S/P/Bld) [Vol rate/Area] mL/min/{1.73_m2} Normal [facility] Comment on above: Order Comment: Reaso n for Exam Hyperlipidemia Performed By: #### T SH3, CMP, LIPID #### [facility] [address] [place] [id number] [place] Globulin (S) [Mass/Vol] 2.9 g/dL Normal T he [facility] Comment on above: Order Comment: Reaso n for Exam Hyperlipidemia Performed By: #### T SH3, CMP, LIPID #### [facility] [address] Glucose [Mass/Vol] 92 mg/dL Normal 70-100 [facility] Comment on above: Order Comment: Reaso n for Exam Hyperlipidemia Result Comment: [place] Glucose Reference Range is dependent on time and content of last meal. Glucose of more than 200 mg/dL in a nonstressed, ambulatory subject supports the diagnosis of Diabetes Mellitus. ADA recommended reference range Performed By: #### T SH3, CMP, LIPID #### [facility] [address] [place] [phone] [place] Potassium [Moles/Vol] 4.8 mmol/L Normal 3.5-5.1 [facility] Comment on above: Order Comment: Reaso n for Exam Hyperlipidemia Performed By: #### T SH3, CMP, LIPID #### [facility] [address] [place] [phone] [place] Protein [Mass/Vol] 6.5 g/dL Normal 6.4-8.9 [facility] Comment on above: Order Comment: Reaso n for Exam Hyperlipidemia Performed By: #### T SH3, CMP, LIPID #### [facility] [address] [place] [id number] [place] Sodium [Moles/Vol] 141 mmol/L Normal 136-145 [facility] Comment on above: Order Comment: Reaso n for Exam Hyperlipidemia Performed By: #### T SH3, CMP, LIPID #### [facility] [address] [place] [phone] [place] Urea nitrogen [Mass/Vol] 18 mg/dL Normal 7-25 [facility] Comment on above: Order Comment: Reaso n for Exam Hyperlipidemia Performed By: #### T SH3, CMP, LIPID #### [facility] [address] [place] [phone] [facility] Lipid Panelon 10-30-2022 Cholesterol [Mass/Vol] 218 mg/dL High 140-200 Th e [facility] Comment on above: Order Comment: Reaso n for Exam Hyperlipidemia Result Comment: Chol less than 200 mg/dl low risk Chol 201-239 mg/dl borderline risk Chol 240 mg/dl and greater high risk Performed By: #### T SH3, CMP, LIPID #### [facility] [address] Cholesterol in HDL [Mass/Vol] 51 mg/dL Normal 35-85 [facility] Comment on above: Order Comment: Reaso n for Exam Hyperlipidemia Result Comment: HDL CHOL ATP-III CLASSIFICATION Cardiovascular Risk HDL > or equal to 60 mg/dL LOW HDL < 40 mg/dL HIGH Performed By: #### T SH3, CMP, LIPID #### [facility] [address] Cholesterol.total/Araceli sterol in HDL [Mass ratio] 4.3 {ratio} Normal <5.0 [facility] Comment on above: Order Comment: Reaso n for Exam Hyperlipidemia Performed By: #### T SH3, CMP, LIPID #### [facility] [address] [place] [phone] [place] LDL Cholesterol,Calculated 151 mg/dL High 0-100 [facility] Comment on above: Order Comment: Reaso n for Exam Hyperlipidemia Result Comment: LDL ATP III CLASSIFICATION LDL less than 100 mg/dL Optimal LDL 100-129 mg/dL Near or above optimal LDL 130-159 mg/dL Borderline high LDL 160-189 mg/dL High LDL greater than 189 mg/dL Very high Performed By: #### T SH3, CMP, LIPID #### [facility] [address] [place] [phone] [place] Triglyceride w/Reflex 78 mg/dL Normal 0-149 [facility] Comment on above: Order Comment: Reaso n for Exam Hyperlipidemia Result Comment: TRIG ATP III CLASSIFICATION TRIG less than 150 mg/dL Normal TRIG 150-199 mg/dL Borderline high TRIG 200-500 mg/dL High TRIG greater than 500 mg/dL Very high Standard traceable to the Center for Disease Conrtrol and Prevention (CDC) test method. Performed By: #### T SH3, CMP, LIPID #### [facility] [address] VLDL CHOLESTEROL 15 mg/dL Normal [facility] Comment on above: Order Comment: Reaso n for Exam Hyperlipidemia Performed By: #### T SH3, CMP, LIPID #### [facility] [address] Thyroid Stimulating Hormoneo n 10-30-2022 TSH Qn 1.72 m[IU]/L Normal 0.45-5.33 [facility] Comment on above: Order Comment: Reaso n for Exam Hyperlipidemia Result Comment: PERF ORMED BY: [place] [address] PATHOLOGIST ELECTRICAL [employer] TECHNICIAN BEV TALBERT M.D. Performed By: #### T SH3, CMP, LIPID #### [facility] [address] Albumin [Mass/volume] in Ser um or PlasmaOrdered By: Prem Goel on 04-29-2022 Albumin [Mass/Vol] 3.4 g/dL 3.2-5.5 [facility] Basophils Auto (Bld) [#/Vol] Ordered By: Prem Goel on 04-29-2022 Basophils (Bld) [#/Vol] 0.0 10*3/uL 0.0-0.[address] [facility] Basophils/100 WBC Auto (Bld) Ordered By: Prem Goel on 04-29-2022 Basophils/100 WBC (Bld) 0.3 % . [facility] Cholesterol [Mass/volume] in Serum or PlasmaOrdered By: Prem Goel on 04-29-2022 Cholesterol [Mass/Vol] 196 mg/dL 140-200 [facility] Comment on above: Chol less than 200 m g/dl low riskChol 201-239 mg/dl borderline riskChol 240 mg/dl and greater high risk Cholesterol in LDL Calc [Mas s/Vol]Ordered By: Prem Gole on 04-29-2022 Cholesterol in LDL [Mass/Vol] 109 mg/dL 0-[address] [facility] Comment on above: LDL ATP III CLASSIFI CATIONLDL less than 100 mg/dL OptimalLDL 100-129 mg/dL Near or above optimalLDL 130-159 mg/dL Borderline highLDL 160-189 mg/dL HighLDL greater than 189 mg/dL Very high Cholesterol in VLDL Calc [Ma ss/Vol]Ordered By: Prem Goel on 04-29-2022 Cholesterol in VLDL [Mass/Vol] 10 mg/dL [facility] Creatinine and Glomerular fi ltration rate.predicted panel (S/P/Bld)Ordered By: Prem Goel on 04-29-2022 Creatinine [Mass/Vol] 0.80 mg/dL 0.44-1.03 [facility] Eosinophils Auto (Bld) [#/Vo l]Ordered By: Prem Goel on 04-29-2022 Eosinophils (Bld) [#/Vol] 0.1 10*3/uL 0.0-0.[address] [facility] Eosinophils/100 WBC Auto (Bl d)Ordered By: Prem Goel on 04-29-2022 Eosinophils/100 WBC (Bld) 0.5 % . [facility] Erythrocyte distribution wid th Auto (RBC) [Ratio]Ordered By: Prem Goel on 04-29-2022 Erythrocyte distribution width (RBC) [Ratio] 13.4 % 11.9-15.[address] [facility] Estimated glomerular filtrat ion rate (GFR) non- AmericanOrdered By: Prem Goel on 04-29-2022 GFR/1.73 sq M.predicted among non-blacks MDRD (S/P/Bld) [Vol rate/Area] > 60 mL/Min [facility] Globulin Calc (S) [Mass/Vol] Ordered By: Prem Goel on 04-29-2022 Globulin (S) [Mass/Vol] 3.3 g/dL [facility] Hematocrit Auto (Bld) [Volum e fraction]Ordered By: Prem Goel on 04-29-2022 Hematocrit (Bld) [Volume fraction] 46.2 % 34.0-46.[address] [facility] Hemoglobin [Mass/volume] in BloodOrdered By: Prem Goel on 04-29-2022 Hemoglobin (Bld) [Mass/Vol] 14.9 g/dL 11.8-15.[address] [facility] Laboratory - Hematology and Cell countsOrdered By: Prem Goel on 04-29-2022 Nucleated RBC/100 WBC (Bld) [Ratio] 0.0 % 0-0.[address] [facility] Leukocytes [#/volume] in Blo od by Automated countOrdered By: Prem Goel on 04-29-2022 WBC (Bld) [#/Vol] 10.7 10*3/uL 4.5-11.0 [facility] Lymphocytes Auto (Bld) [#/Vo l]Ordered By: Prem Goel on 04-29-2022 Lymphocytes (Bld) [#/Vol] 1.9 10*3/uL 1.00-4.[address] [facility] Lymphocytes/100 WBC Auto (Bl d)Ordered By: Prem Goel on 04-29-2022 Lymphocytes/100 WBC (Bld) 17.7 % . [facility] MCH Auto (RBC) [Entitic mass ]Ordered By: Prem Goel on 04-29-2022 MCH (RBC) [Entitic mass] 30.0 pg 24.7-34.[address] [facility] MCHC Auto (RBC) [Mass/Vol]Or dered By: Prem Goel on 04-29-2022 MCHC (RBC) [Mass/Vol] 32.1 g/dL 32.0-35.0 [facility] MCV Auto (RBC) [Entitic vol] Ordered By: Prem Goel on 04-29-2022 MCV (RBC) [Entitic vol] 93.4 fL 80-100 [facility] Monocytes Auto (Bld) [#/Vol] Ordered By: Prem Goel on 04-29-2022 Monocytes (Bld) [#/Vol] 1.1 10*3/uL 0.0-0.[address] [facility] Monocytes/100 WBC Auto (Bld) Ordered By: Prem Geol on 04-29-2022 Monocytes/100 WBC (Bld) 10.4 % . [facility] Neutrophils Auto (Bld) [#/Vo l]Ordered By: Prem Goel on 04-29-2022 Neutrophils (Bld) [#/Vol] 7.6 10*3/uL 1.8-7.[address] [facility] Neutrophils/100 WBC Auto (Bl d)Ordered By: Prem Goel on 04-29-2022 Neutrophils/100 WBC (Bld) 71.1 % . [facility] No Panel InformationOrdered By: Prem Goel on 04-29-2022 Estimated GFR () > 60 mL/Min [facility] Comment on above: GFR estimated refere nce range: According to KDOQI guidelines, <60 ml/min/1.73m2 is sufficient to diagnose a patient with chronic kidney disease. Pharmacy Creatinine Clearance (Chem N/A [facility] Platelet mean volume Auto (B ld) [Entitic vol]Ordered By: Prem Goel on 04-29-2022 Platelet mean volume (Bld) [Entitic vol] 10.2 fL 6.3-10.[address] [facility] Platelets Auto (Bld) [#/Vol] Ordered By: Prem Goel on 04-29-2022 Platelets (Bld) [#/Vol] 238 10*3/uL 150-[address] [facility] Protein [Mass/volume] in Ser um or PlasmaOrdered By: Prem Goel on 04-29-2022 Protein [Mass/Vol] 6.7 g/dL 6.1-7.9 [facility] RBC Auto (Bld) [#/Vol]Ordere d By: Prem Goel on 04-29-2022 RBC (Bld) [#/Vol] 4.95 10*6/uL 3.60-5.00 [facility] Serum or plasma alanine tobias otransferase measurement without P-5'-P (enzymatic activiOrdered By: Prem Goel on 04-29-2022 ALT No additional P-5'-P [Catalytic activity/Vol] 18 U/L 10-[address] [facility] Serum or plasma albumin/glob ulin mass ratioOrdered By: Prem Goel on 04-29-2022 Albumin/Globulin [Mass ratio] 1.0 {ratio} [facility] Serum or plasma alkaline joshua sphatase measurement (enzymatic activity/volume)Ordered By: Prem Goel on 04-29-2022 ALP [Catalytic activity/Vol] 100 U/L 32-[address] [facility] Serum or plasma anion gap de terminationOrdered By: Prem Goel on 04-29-2022 Anion gap [Moles/Vol] 10.5 mmol/L 6.0-15.0 [facility] Serum or plasma aspartate am inotransferase measurement (enzymatic activity/volume)Ordered By: Prem Goel on 04-29-2022 AST [Catalytic activity/Vol] 19 U/L 10-[address] [facility] Serum or plasma calcium erica urement (mass/volume)Ordered By: Prem Goel on 04-29-2022 Calcium [Mass/Vol] 9.2 mg/dL 8.2-10.2 [facility] Serum or plasma chloride omaira surement (moles/volume)Ordered By: Prem Goel on 04-29-2022 Chloride [Moles/Vol] 102 mmol/L 95-[address] [facility] Serum or plasma glucose erica urement (mass/volume)Ordered By: Prem Goel on 04-29-2022 Glucose [Mass/Vol] 111 mg/dL 70-100 [facility] Comment on above: ADA recommended refe rence rangeRandom Glucose Reference Range is dependent on time and content of last meal. Glucose of more than 200 mg/dL in a nonstressed, ambulatory subject supports the diagnosis of Diabetes Mellitus. Serum or plasma high density lipoprotein (HDL) cholesterol measurementOrdered By: Prem Goel on 04-29-2022 Cholesterol in HDL [Mass/Vol] 76 mg/dL 35-[address] [facility] Comment on above: HDL CHOL ATP-III CLA SSIFICATION Cardiovascular RiskHDL > or equal to 60 mg/dL LOWHDL < 40 mg/dL HIGH Serum or plasma potassium me asurement (moles/volume)Ordered By: Prem Goel on 04-29-2022 Potassium [Moles/Vol] 4.0 mmol/L 3.5-5.1 [facility] Serum or plasma sodium measu rement (moles/volume)Ordered By: Prem Goel on 04-29-2022 Sodium [Moles/Vol] 137 mmol/L 136-146 [facility] Serum or plasma total biliru bin measurement (mass/volume)Ordered By: Prem Goel on 04-29-2022 Bilirubin [Mass/Vol] 0.8 mg/dL 0.3-1.[address] [facility] Serum or plasma total carbon dioxide measurement (moles/volume)Ordered By: Prem Goel on 04-29-2022 CO2 [Moles/Vol] 28.5 mmol/L 22.0-30.0 [facility] Serum or plasma total choles terol/high density lipoprotein (HDL) cholesterol mass ratOrdered By: Prem Goel on 04-29-2022 Cholesterol.total/Araceli sterol in HDL [Mass ratio] 2.6 {ratio} <5.[address] [facility] Serum or plasma urea nitroge n measurement (mass/volume)Ordered By: Prem Goel on 04-29-2022 Urea nitrogen [Mass/Vol] 14 mg/dL 02-[address] [facility] TSH DL <= 0.005 mIU/L QnOrde red By: Prem Goel on 04-29-2022 TSH Qn 1.74 m[IU]/L 0.45-5.[address] [facility] Triglyceride [Mass/volume] i n Serum or PlasmaOrdered By: Prem Goel on 04-29-2022 Triglyceride [Mass/Vol] 53 mg/dL 35-149 [facility] Comment on above: TRIG ATP III CLASSIF ICATIONTRIG less than 150 mg/dL NormalTRIG 150-199 mg/dL Borderline highTRIG 200-500 mg/dL High TRIG greater than 500 mg/dL Very highStandard traceable to the Center for Disease Conrtrol and Prevention (CDC) test method. A1C HEMOGLOBINon 04-30-2021 HbA1c (Bld) [Mass fraction] 5.8 % [facility] Other HbA1c (Bld) [Mass fraction]o n 04-30-2021 A1C HEMOGLOBIN [employer] Other [facility] CARDIAC STRESS/REST (DOUGLAS CARDIAL PERFUSION/MIBI)on 04-09-2020 [facility] CARDIAC STRESS/REST (MYOCARDIAL PERFUSION/MIBI) Patient Name: MARY WILKERSON STUDY: MYOCARDIAL PERFUSION STRESS TEST WITH LEXISCAN Performing facility: [facility], [address] [place] [address], [address], [place] [address] [facility] Provider: WP SMYTH PCP: Dr. PREM GOEL Supervising provider: WP SMYTH INDICATION: CP HISTORY: Gender: F; Age: 84 y/o ; Height: 157.48 cm; Weight: 78.8527760 kg. High Cholesterol; CP Family HX CAD; Denies smoking. COMPARISON: Previous nuclear testing completed [id number] at [facility]. ACCESSION NUMBER(S): [id number] ORDERING CLINICIAN: MATT SMYTH TECHNIQUE: ONE DAY [...] comparison. Electronically signed by: BRIELLE DUVAL MD [facility] CARDIAC STRESS/REST INJE CTIONon 04-09-2020 [facility] CARDIAC STRESS/REST INJECTION Patient Name: MARY WILKERSON STUDY: MYOCARDIAL PERFUSION STRESS TEST WITH LEXISCAN Performing facility: [facility], [address] [place] [address], [address], [place] [address] [facility] Provider: WP SMYTH PCP: Dr. PREM GOEL Supervising provider: WP SMYTH INDICATION: CP HISTORY: Gender: F; Age: 84 y/o ; Height: 157.48 cm; Weight: 78.2519513 kg. High Cholesterol; CP Family HX CAD; Denies smoking. COMPARISON: Previous nuclear testing completed [id number] at [facility]. ACCESSION NUMBER(S): [id number] ORDERING CLINICIAN: MATT SMYTH TECHNIQUE: ONE DAY [...] comparison. Electronically signed by: BRIELLE DUVAL MD [facility] PART 2 STRESS OR REST (N O CHARGE)on 04-09-2020 [facility] PART 2 STRESS OR REST (NO CHARGE) Patient Name: MARY WILKERSON STUDY: MYOCARDIAL PERFUSION STRESS TEST WITH LEXISCAN Performing facility: [facility], [address], [address], [place] [address] [facility] Provider: WP SMYTH PCP: Dr. PREM GOEL Supervising provider: WP SMYTH INDICATION: CP HISTORY: Gender: F; Age: 84 y/o ; Height: 157.48 cm; Weight: 78.6325266 kg. High Cholesterol; CP Family HX CAD; Denies smoking. COMPARISON: Previous nuclear testing completed at [facility]. ACCESSION NUMBER(S): [id number] ORDERING CLINICIAN: MATT SMYTH TECHNIQUE: ONE DAY [...] comparison. Electronically signed by: BRIELLE DUVAL MD [facility] Vital Signs Date Time Vital Sign Value Performing Clinician Facility 03-17-2023 08:45-0400 Body height 154.94 cm Prem Kuns Other [facility] Other 03-17-2023 08:45-0400 Body mass index (BMI) [Ratio] 30.98 kg/m2 Prem Kuns Other [facility] Other 03-17-2023 08:45-0400 Body weight 74.39 kg Prem Kuns Other [facility] Other 03-17-2023 08:45-0400 Diastolic blood pressure 76 mm[Hg] Prem Kuns Other [facility] Other 03-17-2023 08:45-0400 Respiratory rate 16 /min Prem Kuns Other [facility] Other 03-17-2023 08:45-0400 SaO2% (BldA) [Mass fraction] 96 % Prem Kuns Other [facility] Other 03-17-2023 08:45-0400 Systolic blood pressure 120 mm[Hg] Prem Kuns Other [facility] Other 11-12-2022 14:45-0400 Body height 154.94 cm Prem Kuns Other [facility] Other 11-12-2022 14:45-0400 Body mass index (BMI) [Ratio] 31.36 kg/m2 Prem Kuns Other [facility] Other 11-12-2022 14:45-0400 Body weight 75.3 kg Prem Kuns Other [facility] Other 11-12-2022 14:45-0400 Diastolic blood pressure 68 mm[Hg] Prem Kuns Other [facility] Other 11-12-2022 14:45-0400 Respiratory rate 16 /min Prem Kuns Other [facility] Other 11-12-2022 14:45-0400 SaO2% (BldA) [Mass fraction] 93 % Prem Kuns Other [facility] Other 11-12-2022 14:45-0400 Systolic blood pressure 124 mm[Hg] Prem Kuns Other [facility] Other 01-28-2022 11:15-0400 Body height 154.94 cm Prem Kuns Other [facility] Other 01-28-2022 11:15-0400 Body mass index (BMI) [Ratio] 30.98 kg/m2 Prem Kuns Other [facility] Other 01-28-2022 11:15-0400 Body weight 74.39 kg Prem Kuns Other [facility] Other 01-28-2022 11:15-0400 Diastolic blood pressure 82 mm[Hg] Prem Kuns Other [facility] Other 01-28-2022 11:15-0400 Respiratory rate 18 /min Prem Kuns Other [facility] Other 01-28-2022 11:15-0400 SaO2% (BldA) [Mass fraction] 95 % Prem Kuns Other [facility] Other 01-28-2022 11:15-0400 Systolic blood pressure 142 mm[Hg] Prem Kuns Other [facility] Other 08-15-2021 14:45-0500 Body height 154.94 cm Prem Kuns Other [facility] Other 08-15-2021 14:45-0500 Body mass index (BMI) [Ratio] 30.04 kg/m2 Prem Kuns Other [facility] Other 08-15-2021 14:45-0500 Body weight 72.12 kg Prem Kuns Other [facility] Other 08-15-2021 14:45-0500 Diastolic blood pressure 80 mm[Hg] Prem Kuns Other [facility] Other 08-15-2021 14:45-0500 Respiratory rate 16 /min Prem Kuns Other [facility] Other 08-15-2021 14:45-0500 SaO2% (BldA) [Mass fraction] 99 % Prem Kuns Other [facility] Other 08-15-2021 14:45-0500 Systolic blood pressure 142 mm[Hg] Prem Kuns Other [facility] Other 04-30-2021 11:45-0500 Body height 154.94 cm Prem Kuns Other [facility] Other 04-30-2021 11:45-0500 Body mass index (BMI) [Ratio] 29.74 kg/m2 Prem Kuns Other [facility] Other 04-30-2021 11:45-0500 Body weight 71.4 kg Prem Kuns Other [facility] Other 04-30-2021 11:45-0500 Diastolic blood pressure 87 mm[Hg] Prem Kuns Other [facility] Other 04-30-2021 11:45-0500 Respiratory rate 18 /min Prem Kuns Other [facility] Other 04-30-2021 11:45-0500 SaO2% (BldA) [Mass fraction] 93 % Prem Kuns Other [facility] Other 04-30-2021 11:45-0500 Systolic blood pressure 136 mm[Hg] Prem Kuns Other [facility] Other 02-28-2021 11:15-0400 Body height 154.94 cm Prem Kuns Other [facility] Other 02-28-2021 11:15-0400 Body mass index (BMI) [Ratio] 29.85 kg/m2 Prem Kuns Other [facility] Other 02-28-2021 11:15-0400 Body weight 71.67 kg Prem Kuns Other [facility] Other 02-28-2021 11:15-0400 Diastolic blood pressure 86 mm[Hg] Prem Kuns Other [facility] Other 02-28-2021 11:15-0400 Respiratory rate 16 /min Prem Kuns Other [facility] Other 02-28-2021 11:15-0400 SaO2% (BldA) [Mass fraction] 97 % Premsaloni Cabezass Other [facility] Other 02-28-2021 11:15-0400 Systolic blood pressure 134 mm[Hg] Prem Raulitos Other [facility] Other Encounters Encounter Date Encounter Type Care Provider Facility Start: 09-18-2023 End: 09-18-2023 ambulatory Prem Kuns Facility:[facility] Start: 09-18-2023 End: 09-18-2023 ambulatory DO Prem Kuns Work Phone: [facility] Work Phone: Start: 09-18-2023 End: 09-18-2023 Patient encounter procedure DO Prem Kuns Work Phone: [facility] [place] Work Phone: Start: 08-11-2023 Non-patient / Non-visit DO Prem Kuns Work Phone: [facility] Work Phone: Start: 08-07-2023 Non-patient / Non-visit DO Prem Kuns Work Phone: [facility] Work Phone: Start: 08-03-2023 Non-patient / Non-visit DO Prem Kuns Work Phone: [facility] Work Phone: Start: 05-27-2023 End: 05-27-2023 ambulatory Prem Kuns Other [facility] Other Start: 05-27-2023 Telephone encounter Prem Raulitos [facility] Start: 03-17-2023 End: 03-17-2023 ambulatory Prem Kuns Other [facility] Other Start: 03-17-2023 Office outpatient visit 25 minutes Prem Kuns [facility] Start: 03-12-2023 End: 03-12-2023 ambulatory Prem Raulitos Facility:[facility] Start: 03-12-2023 End: 03-12-2023 ambulatory DO Prem Kuns Work Phone: [facility] Work Phone: Start: 03-12-2023 End: 03-12-2023 Patient encounter procedure DO Prem Kuns Work Phone: [facility] [place] Work Phone: Start: 01-30-2023 End: 01-30-2023 ambulatory Prem Kuns Other [facility] Other Start: 01-30-2023 Telephone encounter [facility] Start: 11-12-2022 End: 11-12-2022 ambulatory Prem Raulitos Other [facility] Other Start: 11-12-2022 Office outpatient visit 25 minutes Prem Raulitos [facility] [place] Start: 11-04-2022 End: 11-04-[address] PREM GOEL Facility:[facility] Start: 11-04-2022 Telephone encounter [facility] Start: 10-30-2022 End: 10-30-2022 ambulatory Prem Gole Facility:[facility] Start: 10-14-2022 End: 10-14-[address] PREM GOEL Facility:[facility] Start: 10-02-2022 End: 10-03-2022 ambulatory NARENDRANATH LAKSHMIPATHY . Facility:[facility] Start: 09-09-2022 End: 09-09-[address] PREM GOEL Facility:[facility] Start: 09-04-2022 End: 09-05-[address] PREM GOEL Facility:[facility] Start: 08-19-2022 End: 08-19-[address] BILL RAMOS Facility:[facility] Start: 07-22-2022 End: 07-23-[address] PREM GOEL Facility:[facility] Start: 05-08-2022 End: 05-09-2022 ambulatory AIXA GARCIA . Facility:[facility] Start: 05-06-2022 Annual wellness visit Prem arevalo Other [facility] Other Start: 04-29-2022 End: 04-29-2022 ambulatory DO Prem Goel Work Phone: [facility] Work Phone: Start: 04-29-2022 End: 04-29-2022 Patient encounter procedure DO Prem Goel Work Phone: [facility] [place] Start: 03-06-2022 End: 03-07-[address] KHOA RAMOS . Facility:[facility] Start: 02-27-2022 End: 02-27-2022 ambulatory Prem Goel Other [facility] Other Start: 02-27-2022 Telephone encounter Prem Goel [facility] Start: 02-18-2022 End: 02-18-[address] KHOA RAMOS . Facility:[facility] Start: 01-28-2022 End: 01-28-2022 ambulatory Prem Goel Other [facility] Other Start: 01-28-2022 Office outpatient visit 15 minutes Prem Goel [facility] Start: 01-21-2022 End: 01-22-[address] KHOA RAMOS . Facility:[facility] Start: 12-02-2021 End: 12-02-2021 ambulatory Prem Goel Other [facility] Other Start: 12-02-2021 Telephone encounter Prem Kuns [facility] Start: 11-28-2021 End: 11-28-2021 ambulatory Prem Kuns Other [facility] Other Start: 11-28-2021 Telephone encounter Prem Kuns [facility] [place] Start: 10-02-2021 End: 10-02-2021 ambulatory Prem Kuns Other [facility] Other Start: 10-02-2021 Telephone encounter Prem Kuns [facility] [place] Start: 09-10-2021 End: 09-10-2021 ambulatory Prem Kuns Other [facility] Other Start: 09-10-2021 Tele[facility] Start: 08-15-2021 End: 08-15-2021 ambulatory Prem Kuns Other [facility] Other Start: 08-15-2021 Office outpatient visit 25 minutes Prem Kuns [facility] [place] Start: 08-12-2021 End: 08-12-2021 ambulatory Prem Kuns Other [facility] Other Start: 08-12-2021 Telephone encounter Prem Kuns [facility] Start: 06-13-2021 End: 06-13-2021 ambulatory Prem Kuns Other [facility] Other Start: 06-13-2021 Telephone encounter Prem Kuns [facility] [place] Start: 04-30-2021 End: 04-30-2021 ambulatory Prem Kuns Other [facility] Other Start: 04-30-2021 Office outpatient visit 25 minutes Prem Kuns [facility] [place] Start: 02-28-2021 End: 02-28-2021 ambulatory Prem Goel Other [facility] Other Start: 02-28-2021 Patient encounter procedure Prem Goel [facility] Start: 08-18-2019 Annual wellness visit Prem arevalo Other [facility] Other Plan of Treatment Date Care Activity Detail Author Glucose measurement estimated from glycated hemoglobin [facility] enter Glucose measurement estimated from glycated hemoglobin [facility] enter [facility] Immunizations Immunization Date Immunization Notes Care Provider Fa cility 06-13-2021 COVID-19 Vaccine Pfizer - Documentation Purposes Only Premsaloni Cabezass Other [facility] 07-19-2020 COVID-19 Vaccine Pfizer - Documentation Purposes Only Premsaloni Cabezass Other [facility] 06-29-2020 COVID-19 Vaccine Pfizer - Documentation Purposes Only Prem Raulitos Other [facility] NEGATED: Highlighted row has not occurred!05-06-2022 influenza, seasonal, injectable Patient Objection Premsaloni Cabezass Other [facility] Other NEGATED: Highlighted row has not occurred!05-06-2022 Prevnar 20 Patient Objection Premsaloni Cabezass Other [facility] Other NEGATED: Highlighted row has not occurred!02-17-2019 influenza, seasonal, injectable Patient Objection Prem Raulitos Other [facility] Other NEGATED: Highlighted row has not occurred!04-07-2017 influenza, seasonal, injectable Patient Objection Prem Kuns Other [employer] [facility] Other Payers Date Payer Category Payer Self-pay [id number] Private Health Insurance [id number] 1937 Unknown [id number] 1937 Unknown [id number] [id number] 1937 Unknown [id number] [id number] 1937 Unknown [id number] [id number] 1937 Unknown [id number] [id number] 1937 Unknown [id number] 2..840.1.442105.3.579.2.593 1937 Unknown [id number] 2.16.840.1.647898.3.579.2.593 1937 Unknown [id number] 2..840.1.967531.3.579.2.593 1937 Unknown [id number] 2.16.840.1.553667.3.579.2.593 1937 Unknown [id number] 2.840.1.581577.3.579.2.593 1937 Unknown [id number] [id number] Medicare Medicare [id number] [facility] Health Claims [id number] Unknown [id number] [id number] Unknown [id number] [id number] Unknown [id number] [id number] Social History Date Type Detail Facility Unknown if ever smoked [facility] Other Sex Assigned At Sex Assigned At Bir th [facility] Other Start: 03-28-2020 End: 07-02-2023 Tobacco smoking status NHIS Never smoked tobacco (finding) [facility] Start: 1935 Sex Assigned At Female F [facility] Clinical Notes 12-21-2007 to 03-17-2023 Note Date [...] exercise regimen; we will continue to monitor. [facility] Other 08-25-2023 Evaluation note* Encounter Date Diagnosis Assessment Notes Treatment Notes Treatment Clinical Notes Jan, Hyperlipidemia (ICD-10 - E78.5) [facility] Other 06-07-2023 Evaluation note* Encounter Date Diagnosis Assessment Notes Treatment Notes Treatment Clinical Notes Nov, Bronchopneumonia (ICD-10 - J18.0) [facility] ER records reviewed from both 11/06 [...] (ICD-10 - R59.0) Noted on imaging from [facility]. I do believe this is likely due to her being ill. She has never smoked. Discussed these findings with the and the patient if symptoms persist we may have pulmonary evaluation but at this time patient appears to be improving [facility] Other 04-27-2023 NoteCONSULTATION CONSULTATION DATE: 10/02/2022 TO: [...] our patients to inform us about any [id number] medications or herbal remedies/nutritional supplements/alternative remedies. 2. [...] treatment options with their primary care provider.[id number] Note CONSULTATION CONSULTATION DATE: 09/04/2022 TO: Dr. [...] mg pills, 1-2 at h.s. as tolerated.[id number] NoteCONSULTATION CONSULTATION DATE: 07/22/2022 CHIEF COMPLAINT: Right [...] her understand and would like to proceed,.[facility] 05-08-2022 NoteCONSULTATION CONSULTATION DATE: 05/08/2022 HISTORY OF [...] in three months' time unless otherwise indicated.[facility] [id number] NoteCONSULTATION CONSULTATION DATE: 03/06/2022 This is a [...] of care and all questions were answered.[facility] [id number] Evaluation note* Encounter Date Diagnosis Assessment Notes Treatment Notes Treatment Clinical Notes Feb, Hyperlipidemia (ICD-10 - E78.5) [facility] Other 08-23-2022 Evaluation note* Encounter Date Diagnosis [...] E78.5) Jan, Hyperglycemia (ICD-1 0 - R73.9) [facility] Other 08-16-2022 NoteCONSULTATION CONSULTATION DATE: 01/21/2022 CHIEF [...] her understand. CC: Dr. Raphael Escamilla D.O.[facility] [id number] NotePROCEDURE: Recipharm Signa HDXT 1.5 Sagittal T1, T2, STIR [...] and signed by Ralph Figueroa on 10/25/2021 1510[facility]03-10-2022 Evaluation note* Encounter Date Diagnosis Assessment Notes [...] we will attempt to order an MRI. [facility] Other 01-06-2022 Evaluation note* Encounter Date Diagnosis Assessment Notes Treatment Notes Treatment Clinical Notes Jun, Hyperlipidemia (ICD-10 - E78.5) [facility] Other 11-23-2021 Evaluation note* Encounter Date Diagnosis [...] work-up i.e. CAT scan of her abdomen. [facility] Other 09-23-2021 Evaluation note* Encounter Date Diagnosis [...] monitor, a blood work order was provided. [facility] Other 07-15-2008 History general Narrative - Reported* Type Description Date Medical History Colonoscopy 12-21-07 Medical History Stress Test 01-18-[address] Scan Abdomen and Pelvis 06-07 Medical History Mammogram 2-11 Medical History Pap 1-10 Medical History 02[place] [facility] [place] 10[place]13/13-[place]ogram at [facility] Medical History 12/2015 mammogram Medical History 12/2016 Mammogram Medical History 07/2019 Mammogram Medical History Cardiolite 04/09/20 Surgical History wisdom teeth Hospitalization History child [facility] Other 07-15-2008 History general Narrative - Reported* Type Description Date Medical History Colonoscopy 12-21-07 Medical History Stress Test 01-18-[address] Scan Abdomen and Pelvis 06-07 Medical History Mammogram 2-11 Medical History Pap 1-10 Medical History 02/[place] [facility] [place] History 10/13/13-mammogram at [facility] Medical History 12/2015 mammogram Medical History 12/2016 Mammogram Medical History 07/2019 Mammogram Medical History Cardiolite 04/09/20 Medical History hearing aids Surgical History wisdom teeth Hospitalization History child [facility] Other evaluation noteNo [facility] Other evaluation noteNo assessment information available [facility] Work Phone: Summary Purpose Family History No Family History Records Found Relationship Condition Age at Onset Recorded Date/T adry father Unknown grandparent Unknown Not Specified Unknown Advance Directives No Advanced Directives Records Found Advance Directive Response Recorded Date/ Time Advance Directives No April 15, 2017 7:45pm Advance Directive Response Recorded Date/ Time Advance Directives No April 15, 2017 8:45pm Advance Directive Response Recorded Date/ Time Advance Directives No July 02, 2023 5:34pm Chief Complaint and Reason for Visit Chief Complaint See order Chief Complaint E78.5 R73.9 Chief Complaint Amb Documentation Amb Documentation E78.5 R73.9 Additional Source Comments INFORMATION SOURCE (unrecogn ized section and content) DATE CREATED AUTHOR 04/11/2020 [facility] DATE CREATED AUTHOR AUTHOR'S ORGANIZ ATION 10/27/2021 [facility] dical Specialist DATE CREATED AUTHOR AUTHOR'S ORGANIZ ATION 10/17/2022 [facility] DATE CREATED AUTHOR AUTHOR'S ORGANIZ ATION 09/19/2023 [facility] REASON FOR VISIT (unrecogniz ed section and content) refillMEDICARE WELLNESS SUBR efillsreview labs- hyperlipidemia managementRefillship/leg painhip and leg painClinicalRefill3 month Follow up right hp /legRefillsClinicalER FOLLOW UP JUAN C BRONCHITISRefills4 month Follow upRefills Care Teams (unrecognized sec tion and content) Team Status: Active Member Role Status Ruiz Goel DO Primary Care Provider Active Team Status: Active Member Role Status Ruiz Goel DO Primary Care Provider Active Sta rt: August 03, 2023 Le Valenzuela LPN Attending Provider Active Sta rt: August 03, 2023 Team Status: Active Member Role Status Ruiz Goel DO Primary Care Provide r, Attending Provider Active Start: August 07, 2023 Team Status: Active Member Role Status Ruiz Goel DO Primary Care Provider Active Sta rt: August 11, 2023 Le Valenzuela LPN Attending Provider Active Sta rt: August 11, 2023 Team Status: Inactive Member Role Status Ruiz Goel DO Primary Care Provide r, Attending Provider Active Start: September 18, 2023 End: September 18, 2023 Team Status: Inactive Member Role Status Ruiz Goel DO Primary Care Provider, Attending Provi [...] BE BASED ON THE PRIMARY CLINICAL RECORDS. [facility]. provides no warranty or guarantee of the accuracy or completeness of information in this document.
== END 2023-09-22 10:04 | disposition home or self-care (01) ==
LOC: PM 10:03
PROVIDERS: PCP Family Medicine; Visit Provider Nurse Practitioner
DX: M54.16 Radiculopathy, lumbar region (principal); M47.26 Other spondylosis with radiculopathy, lumbar region
CPT/HCPCS: 72110; G0463

== ENCOUNTER 2023-09-22 13:49 | Outpatient (OUT) | payer MEDICARE, SELFPAY ==
--- NOTE | 2023-09-22 13:56 | XR_ITS ---
[facility] [id number] Patient Name: ISAIAS WILKERSON MRN: [id number] date: 1935 Sex: F Assigned Patient Location: [facility] Current Patient Location: Accession/Order Number: [id number] Exam Date: 09/22/2023 14:00 Report Date: 09/23/2023 07:18 At the request of: DONELL GOLDSTEIN Procedure: XR lumbar spine min 4V EXAMINATION: XR lumbar spine min 4V HISTORY: lumbar radiculopathy COMPARISON: No relevant comparison available. FINDINGS: BONES: Normal alignment with no acute fracture or spondylolisthesis. Moderate spondylosis. 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 No paraspinous abnormality is seen. OTHER: Vascular calcifications XR/XR lumbar spine min 4V IMPRESSION: Moderate to severe diffuse degenerative changes Electronically authenticated by: RAEANN RUSS Date: 09/23/2023 07:18
--- OUTSIDE RECORDS SUMMARY | 2023-09-22 14:03 | XMS_ITS | CCD ---
Author Organization [facility] Care Team Providers Care Rippler Name Role Phone Prem Goel Unavailable DO Prem Goel Primary Care Provider DO Prem Goel Attending Provider [phone] LAKSHMIPATHY ., NARENDRANATH Admitting Eda vailable [...] Provider Kuns, DO Prem Attending Provider Kuns, DO Prem Primary Care Provider [phone] Kuns, DO Prem Attending Provider Kuns, Prem [...] nee ded Orally every 8 hrs Active [id number] actuat albuterol 0.09 mg/actuat metered dose [...] 09-18-2023 Glucose [Mass/Vol] 117 mg/dL Normal [facility] Comment on above: Order Comment: Reaso n for Exam Hyperglycemia Result Comment: PERF ORMED BY: [address] [place] [address] PATHOLOGIST [employer] BEV TALBERT M.D. Performed By: #### L IPID, TSH3, CBC, CMP #### [facility] [address] HbA1c (Bld) [Mass fraction] 5.7 % High 4.3-5.6 [facility] Comment on above: Order Comment: Reaso n for Exam Hyperglycemia Result Comment: Incr eased risk for diabetes: 5.7 - 6.4 diabetes: >6.4 glycemic control for adults with diabetes: <7.0 Performed By: #### L IPID, TSH3, CBC, CMP #### [facility] [address] [place] [id number] [place] Alanine aminotransferase [En zymatic activity/volume] in Serum or PlasmaOrdered By: Prem Goel on 09-18-2023 ALT [Catalytic activity/Vol] 15 U/L 7-52 [facility] Albumin [Mass/volume] in Ser um or Plasma by Bromocresol green (BCG) dye binding methoOrdered By: Prem Goel on 09-18-2023 Albumin BCG dye [Mass/Vol] 4.0 g/dL 3.5-5.7 [facility] Alkaline phosphatase [Enzyma tic activity/volume] in Serum or PlasmaOrdered By: Prem Goel on 09-18-2023 ALP [Catalytic activity/Vol] 87 U/L 34-104 [facility] Aspartate aminotransferase [ Enzymatic activity/volume] in Serum or PlasmaOrdered By: Prem Goel on 09-18-2023 AST [Catalytic activity/Vol] 16 U/L 13-39 [facility] Basophils Auto (Bld) [#/Vol] Ordered By: Prem Goel on 09-18-2023 Basophils (Bld) [#/Vol] 0.0 10*3/uL 0.0-0.2 [facility] Basophils/100 WBC Auto (Bld) Ordered By: Prem Goel on 09-18-2023 Basophils/100 WBC (Bld) 0.5 % . [facility] Bilirubin.total [Mass/volume ] in Serum or PlasmaOrdered By: Prem Goel on 09-18-2023 Bilirubin [Mass/Vol] 0.6 mg/dL 0.3-1.0 [facility] Calcium [Mass/volume] in Ser um or PlasmaOrdered By: Prem Goel on 09-18-2023 Calcium [Mass/Vol] 9.5 mg/dL 8.6-10.3 [facility] Carbon dioxide, total [Moles /volume] in Serum or PlasmaOrdered By: Prem Goel on 09-18-2023 CO2 [Moles/Vol] 28.9 mmol/L 21.0-31.0 [facility] Chloride [Moles/volume] in S dede or PlasmaOrdered By: Prem Goel on 09-18-2023 Chloride [Moles/Vol] 104 mmol/L 98-107 [facility] Cholesterol [Mass/volume] in Serum or PlasmaOrdered By: Prem Goel on 09-18-2023 Cholesterol [Mass/Vol] 289 mg/dL 140-200 [facility] Comment on above: Chol less than 200 m g/dl low riskChol 201-239 mg/dl borderline riskChol 240 mg/dl and greater high risk Cholesterol in LDL Calc [Mas s/Vol]Ordered By: Prem Goel on 09-18-2023 Cholesterol in LDL [Mass/Vol] 197 mg/dL 0-100 [facility] Comment on above: LDL ATP III CLASSIFI CATIONLDL less than 100 mg/dL OptimalLDL 100-129 mg/dL Near or above optimalLDL 130-159 mg/dL Borderline highLDL 160-189 mg/dL HighLDL greater than 189 mg/dL Very high Cholesterol in VLDL Calc [Ma ss/Vol]Ordered By: Prem Goel on 09-18-2023 Cholesterol in VLDL [Mass/Vol] 23 mg/dL [facility] Complete Blood Count Auto Di ffon 09-18-2023 Basophils (Bld) [#/Vol] 0.0 10*3/uL Normal 0.0-0.2 [facility] Comment on above: Result Comment: PERF ORMED BY: [place] [address] PATHOLOGIST [employer] BEV TALBERT M.D. Performed By: #### L IPID, TSH3, CBC, CMP #### [address] Basophils/100 WBC (Bld) 0.5 % Normal . T [facility] Comment on above: Performed By: #### L IPID, TSH3, CBC, CMP #### [place] [address] [place] Eosinophils (Bld) [#/Vol] 0.1 10*3/uL Normal 0.0-0.45 [facility] Comment on above: Performed By: #### L IPID, TSH3, CBC, CMP #### [address] Eosinophils/100 WBC (Bld) 2.2 % Normal . [facility] Comment on above: Performed By: #### L IPID, TSH3, CBC, CMP #### [address] Erythrocyte distribution width (RBC) [Ratio] 13.9 % Normal 11.9-15.3 [facility] Comment on above: Performed By: #### L IPID, TSH3, CBC, CMP #### [address] Hematocrit (Bld) [Volume fraction] 44.9 % Normal 34.0-46.4 [facility] Comment on above: Performed By: #### L IPID, TSH3, CBC, CMP #### [address] Hemoglobin (Bld) [Mass/Vol] 14.3 g/dL Normal 11.8-15.4 [facility] Comment on above: Performed By: #### L IPID, TSH3, CBC, CMP #### [place] [address] [place] Lymphocytes (Bld) [#/Vol] 2.9 10*3/uL Normal 1.00-4.8 [facility] Comment on above: Performed By: #### L IPID, TSH3, CBC, CMP #### [place] [address] [place] Lymphocytes/100 WBC (Bld) 53.2 % Normal . [facility] Comment on above: Performed By: #### L IPID, TSH3, CBC, CMP #### [address] MCH (RBC) [Entitic mass] 29.4 pg Normal 24.7-34.3 [facility] Comment on above: Performed By: #### L IPID, TSH3, CBC, CMP #### [address] MCV (RBC) [Entitic vol] 92.3 fL Normal 80-100 [facility] Comment on above: Performed By: #### L IPID, TSH3, CBC, CMP #### [address] Mean Corpuscular HGB Conc 31.9 g/dL Low 32.0-35.0 [facility] Comment on above: Performed By: #### L IPID, TSH3, CBC, CMP #### [address] Monocytes (Bld) [#/Vol] 0.4 10*3/uL Normal 0.0-0.8 [facility] Comment on above: Performed By: #### L IPID, TSH3, CBC, CMP #### [address] Monocytes/100 WBC (Bld) 8.0 % Normal . [facility] Comment on above: Performed By: #### L IPID, TSH3, CBC, CMP #### [address] Neutrophils (Bld) [#/Vol] 1.9 10*3/uL Normal 1.8-7.7 [facility] Comment on above: Performed By: #### L IPID, TSH3, CBC, CMP #### [address] Neutrophils/100 WBC (Bld) 36.1 % Normal . [facility] Comment on above: Performed By: #### L IPID, TSH3, CBC, CMP #### [address] NRBC% 0.2 /100{WBC} Normal 0-0.5 [facility] Comment on above: Performed By: #### L IPID, TSH3, CBC, CMP #### [address] Platelet mean volume (Bld) [Entitic vol] 10.4 fL Normal 6.3-10.7 [facility] Comment on above: Performed By: #### L IPID, TSH3, CBC, CMP #### [address] Platelets (Bld) [#/Vol] 230 10*3/uL Normal 150-450 [facility] Comment on above: Performed By: #### L IPID, TSH3, CBC, CMP #### [address] RBC (Bld) [#/Vol] 4.87 10*6/uL Normal 3.60-5.00 [facility] Comment on above: Performed By: #### L IPID, TSH3, CBC, CMP #### [address] WBC (Bld) [#/Vol] 5.4 10*3/uL Normal 3.8-11.6 [facility] Comment on above: Performed By: #### L IPID, TSH3, CBC, CMP #### [address] Comprehensive Metabolic Pane [place] 09-18-2023 Albumin [Mass/Vol] 4.0 g/dL Normal 3.5-5.7 [facility] Comment on above: Order Comment: Reaso n for Exam Hyperlipidemia Performed By: #### L IPID, TSH3, CBC, CMP #### [address] Albumin/Globulin [Mass ratio] 1.7 {ratio} Normal [facility] Comment on above: Order Comment: Reaso n for Exam Hyperlipidemia Performed By: #### L IPID, TSH3, CBC, CMP #### [facility] [address] [place] [id number] [place] ALP [Catalytic activity/Vol] 87 U/L Normal 34-104 [facility] Comment on above: Order Comment: Reaso n for Exam Hyperlipidemia Performed By: #### L IPID, TSH3, CBC, CMP #### [facility] [address] [place] [id number] [place] ALT [Catalytic activity/Vol] 15 U/L Normal 7-52 [facility] Comment on above: Order Comment: Reaso n for Exam Hyperlipidemia Performed By: #### L IPID, TSH3, CBC, CMP #### [facility] [address] Anion gap [Moles/Vol] 12.3 mmol/L Normal 6.0-15.0 [facility] Comment on above: Order Comment: Reaso n for Exam Hyperlipidemia Performed By: #### L IPID, TSH3, CBC, CMP #### [facility] [address] [place] [address] AST [Catalytic activity/Vol] 16 U/L Normal 13-39 [facility] Comment on above: Order Comment: Reaso n for Exam Hyperlipidemia Performed By: #### L IPID, TSH3, CBC, CMP #### [facility] [address] [place] [address] Bilirubin [Mass/Vol] 0.6 mg/dL Normal 0.3-1.0 [facility] Comment on above: Order Comment: Reaso n for Exam Hyperlipidemia Performed By: #### L IPID, TSH3, CBC, CMP #### [facility] [address] [place], [place] [id number] [place] Calcium [Mass/Vol] 9.5 mg/dL Normal 8.6-10.3 [facility] Comment on above: Order Comment: Reaso n for Exam Hyperlipidemia Performed By: #### L IPID, TSH3, CBC, CMP #### [facility] [address] [place], [place] [id number] [place] Chloride [Moles/Vol] 104 mmol/L Normal 98-107 [facility] Comment on above: Order Comment: Reaso n for Exam Hyperlipidemia Performed By: #### L IPID, TSH3, CBC, CMP #### [facility] [address] [place] [address] [place] CO2 [Moles/Vol] 28.9 mmol/L Normal 21.0-31.0 [facility] Comment on above: Order Comment: Reaso n for Exam Hyperlipidemia Performed By: #### L IPID, TSH3, CBC, CMP #### [facility] [address] [place] [address] [place] Creatinine [Mass/Vol] 0.79 mg/dL Normal 0.60-1.20 [facility] Comment on above: Order Comment: Reaso n for Exam Hyperlipidemia Performed By: #### L IPID, TSH3, CBC, CMP #### [facility] [address] [place] [address] [place] GFR/1.73 sq M.predicted MDRD (S/P/Bld) [Vol rate/Area] mL/min/{1.73_m2} Normal [facility] Comment on above: Order Comment: Reaso n for Exam Hyperlipidemia Performed By: #### L IPID, TSH3, CBC, CMP #### [facility] [address] [place] [address] [place] Globulin (S) [Mass/Vol] 2.4 g/dL Normal T [facility] Comment on above: Order Comment: Reaso n for Exam Hyperlipidemia Performed By: #### L IPID, TSH3, CBC, CMP #### [facility] [address] Glucose [Mass/Vol] 90 mg/dL Normal 70-100 [facility] Comment on above: Order Comment: Reaso n for Exam Hyperlipidemia Result Comment: [place] om Glucose Reference Range is dependent on time and content of last meal. Glucose of more than 200 mg/dL in a nonstressed, ambulatory subject supports the diagnosis of Diabetes Mellitus. ADA recommended reference range Performed By: #### L IPID, TSH3, CBC, CMP #### [facility] [address] Potassium [Moles/Vol] 4.2 mmol/L Normal 3.5-5.1 [facility] Comment on above: Order Comment: Reaso n for Exam Hyperlipidemia Performed By: #### L IPID, TSH3, CBC, CMP #### [facility] [address] Protein [Mass/Vol] 6.4 g/dL Normal 6.4-8.9 [facility] Comment on above: Order Comment: Reaso n for Exam Hyperlipidemia Performed By: #### L IPID, TSH3, CBC, CMP #### [facility] [address] [place] [address] Sodium [Moles/Vol] 141 mmol/L Normal 136-145 [facility] Comment on above: Order Comment: Reaso n for Exam Hyperlipidemia Performed By: #### L IPID, TSH3, CBC, CMP #### [facility] [address] [place] [address] Urea nitrogen [Mass/Vol] 17 mg/dL Normal 7-25 [facility] Comment on above: Order Comment: Reaso n for Exam Hyperlipidemia Performed By: #### L IPID, TSH3, CBC, CMP #### [facility] [address] [place] [address] Creatinine [Mass/volume] in Serum or PlasmaOrdered By: Prem Goel on 09-18-2023 Creatinine [Mass/Vol] 0.79 mg/dL 0.60-1.20 [facility] Eosinophils Auto (Bld) [#/Vo l]Ordered By: Prem Goel on 09-18-2023 Eosinophils (Bld) [#/Vol] 0.1 10*3/uL 0.0-0.45 [facility] Eosinophils/100 WBC Auto (Bl d)Ordered By: Prem Goel on 09-18-2023 Eosinophils/100 WBC (Bld) 2.2 % . [facility] Erythrocyte distribution wid th Auto (RBC) [Ratio]Ordered By: Prem Goel on 09-18-2023 Erythrocyte distribution width (RBC) [Ratio] 13.9 % 11.9-15.3 [facility] Globulin Calc (S) [Mass/Vol] Ordered By: Prem Goel on 09-18-2023 Globulin (S) [Mass/Vol] 2.4 g/dL F [facility] Glucose [Mass/volume] in Ser um or PlasmaOrdered By: Prem Goel on 09-18-2023 Glucose [Mass/Vol] 90 mg/dL 70-100 [facility] Comment on above: ADA recommended refe rence rangeRandom Glucose Reference Range is dependent on time and content of last meal. Glucose of more than 200 mg/dL in a nonstressed, ambulatory subject supports the diagnosis of Diabetes Mellitus. Hematocrit Auto (Bld) [Volum e fraction]Ordered By: Prem Goel on 09-18-2023 Hematocrit (Bld) [Volume fraction] 44.9 % 34.0-46.4 [facility] Hemoglobin [Mass/volume] in BloodOrdered By: Prem Goel on 09-18-2023 Hemoglobin (Bld) [Mass/Vol] 14.3 g/dL 11.8-15.4 [facility] Leukocytes [#/volume] correc guillermina for nucleated erythrocytes in Blood by Automated counOrdered By: Prem Goel on 09-18-2023 WBC corrected for nucl RBC Auto (Bld) [#/Vol] 5.4 10*3/uL 3.8-11.6 [facility] Lipid Panelon 09-18-2023 Cholesterol [Mass/Vol] 289 mg/dL High 140-200 [facility] Comment on above: Order Comment: Reaso n for Exam Hyperlipidemia Result Comment: Chol less than 200 mg/dl low risk Chol 201-239 mg/dl borderline risk Chol 240 mg/dl and greater high risk Performed By: #### L IPID, TSH3, CBC, CMP #### [facility] [address] [place] [id number] [place] Cholesterol in HDL [Mass/Vol] 69 mg/dL Normal 23-92 [facility] Comment on above: Order Comment: Reaso n for Exam Hyperlipidemia Result Comment: HDL CHOL ATP-III CLASSIFICATION Cardiovascular Risk HDL > or equal to 60 mg/dL LOW HDL < 40 mg/dL HIGH Performed By: #### L IPID, TSH3, CBC, CMP #### [facility] [address] [place] [id number] [place] Cholesterol.total/Araceli sterol in HDL [Mass ratio] 4.2 {ratio} Normal <5.0 [facility] Comment on above: Order Comment: Reaso n for Exam Hyperlipidemia Performed By: #### L IPID, TSH3, CBC, CMP #### [facility] [address] LDL Cholesterol,Calculated 197 mg/dL High 0-100 [facility] Comment on above: Order Comment: Reaso n for Exam Hyperlipidemia Result Comment: LDL ATP III CLASSIFICATION LDL less than 100 mg/dL Optimal LDL 100-129 mg/dL Near or above optimal LDL 130-159 mg/dL Borderline high LDL 160-189 mg/dL High LDL greater than 189 mg/dL Very high Performed By: #### L IPID, TSH3, CBC, CMP #### [facility] [address] Triglyceride w/Reflex 116 mg/dL Normal 0-149 [facility] Comment on above: Order Comment: Reaso n for Exam Hyperlipidemia Result Comment: TRIG ATP III CLASSIFICATION TRIG less than 150 mg/dL Normal TRIG 150-199 mg/dL Borderline high TRIG 200-500 mg/dL High TRIG greater than 500 mg/dL Very high Standard traceable to the Center for Disease Conrtrol and Prevention (CDC) test method. Performed By: #### L IPID, TSH3, CBC, CMP #### [facility] [address] VLDL CHOLESTEROL 23 mg/dL Normal [facility] Comment on above: Order Comment: Reaso n for Exam Hyperlipidemia Performed By: #### L IPID, TSH3, CBC, CMP #### [facility] [address] Lymphocytes Auto (Bld) [#/Vo l]Ordered By: Prem Goel on 09-18-2023 Lymphocytes (Bld) [#/Vol] 2.9 10*3/uL 1.00-4.8 [facility] Lymphocytes/100 WBC Auto (Bl d)Ordered By: Prem Goel on 09-18-2023 Lymphocytes/100 WBC (Bld) 53.2 % . [facility] MCH Auto (RBC) [Entitic mass ]Ordered By: Prem Goel on 09-18-2023 MCH (RBC) [Entitic mass] 29.4 pg 24.7-34.3 [facility] MCHC Auto (RBC) [Mass/Vol]Or dered By: Prem Goel on 09-18-2023 MCHC (RBC) [Mass/Vol] 31.9 g/dL 32.0-35.0 [facility] MCV Auto (RBC) [Entitic vol] Ordered By: Prem Goel on 09-18-2023 MCV (RBC) [Entitic vol] 92.3 fL 80-100 F [facility] Monocytes Auto (Bld) [#/Vol] Ordered By: Prem Goel on 09-18-2023 Monocytes (Bld) [#/Vol] 0.4 10*3/uL 0.0-0.8 [facility] Monocytes/100 WBC Auto (Bld) Ordered By: Prem Goel on 09-18-2023 Monocytes/100 WBC (Bld) 8.0 % . F [facility] Neutrophils Auto (Bld) [#/Vo l]Ordered By: Prem Goel on 09-18-2023 Neutrophils (Bld) [#/Vol] 1.9 10*3/uL 1.8-7.7 [facility] Neutrophils/100 WBC Auto (Bl d)Ordered By: Prem Goel on 09-18-2023 Neutrophils/100 WBC (Bld) 36.1 % . [facility] No Panel InformationOrdered By: Prem Goel on 09-18-2023 Estimated GFR (CKD-EPI) > 60.0 mL/Min [facility] Creatinine Clearance (Chem N/A [facility] Nucleated erythrocytes [Pres ence] in Blood by Automated countOrdered By: Prem Goel on 09-18-2023 Nucleated RBC Auto Ql (Bld) 0.2 /100{WBC} 0-0.5 [facility] Platelet mean volume Auto (B ld) [Entitic vol]Ordered By: Prem Goel on 09-18-2023 Platelet mean volume (Bld) [Entitic vol] 10.4 fL 6.3-10.7 [facility] Platelets Auto (Bld) [#/Vol] Ordered By: Prem Goel on 09-18-2023 Platelets (Bld) [#/Vol] 230 10*3/uL 150-450 [facility] Potassium [Moles/volume] in Serum or PlasmaOrdered By: Prem Goel on 09-18-2023 Potassium [Moles/Vol] 4.2 mmol/L 3.5-5.1 [facility] Protein [Mass/volume] in Ser um or PlasmaOrdered By: Prem Goel on 09-18-2023 Protein [Mass/Vol] 6.4 g/dL 6.4-8.9 [facility] RBC Auto (Bld) [#/Vol]Ordere d By: Prem Goel on 09-18-2023 RBC (Bld) [#/Vol] 4.87 10*6/uL 3.60-5.00 [facility] Serum or plasma albumin/glob ulin mass ratioOrdered By: Prem Goel on 09-18-2023 Albumin/Globulin [Mass ratio] 1.7 {ratio} [facility] Serum or plasma anion gap de terminationOrdered By: Prem Goel on 09-18-2023 Anion gap [Moles/Vol] 12.3 mmol/L 6.0-15.0 [facility] Serum or plasma high density lipoprotein (HDL) cholesterol measurementOrdered By: Prem Goel on 09-18-2023 Cholesterol in HDL [Mass/Vol] 69 mg/dL 23-92 [facility] Comment on above: HDL CHOL ATP-III CLA SSIFICATION Cardiovascular RiskHDL > or equal to 60 mg/dL LOWHDL < 40 mg/dL HIGH Serum or plasma total choles terol/high density lipoprotein (HDL) cholesterol mass ratOrdered By: Prem Goel on 09-18-2023 Cholesterol.total/Araceli sterol in HDL [Mass ratio] 4.2 {ratio} <5.0 [facility] Sodium [Moles/volume] in Ser um or PlasmaOrdered By: Prem Goel on 09-18-2023 Sodium [Moles/Vol] 141 mmol/L 136-145 [facility] Thyroid Stimulating Hormoneo n 09-18-2023 TSH Qn 2.60 m[IU]/L Normal 0.45-5.33 [facility] Comment on above: Order Comment: Reaso n for Exam Hyperlipidemia Result Comment: PERF ORMED BY: [facility] [address] [place] [address] PATHOLOGIST [employer] BEV TALBERT M.D. Performed By: #### L IPID, TSH3, CBC, CMP #### [facility] [address] Thyrotropin [Units/volume] i n Serum or PlasmaOrdered By: Prem Goel on 09-18-2023 TSH Qn 2.60 m[IU]/L 0.45-5.33 [facility] Triglyceride [Mass/volume] i n Serum or PlasmaOrdered By: Prem Goel on 09-18-2023 Triglyceride [Mass/Vol] 116 mg/dL 0-149 F [facility] Comment on above: TRIG ATP III CLASSIF ICATIONTRIG less than 150 mg/dL NormalTRIG 150-199 mg/dL Borderline highTRIG 200-500 mg/dL High TRIG greater than 500 mg/dL Very highStandard traceable to the Center for Disease Conrtrol and Prevention (CDC) test method. Urea nitrogen [Mass/volume] in Serum or PlasmaOrdered By: Prem Goel on 09-18-2023 Urea nitrogen [Mass/Vol] 17 mg/dL 7-25 [facility] WBC Auto (Bld) [#/Vol]Ordere d By: Prem Goel on 09-18-2023 WBC (Bld) [#/Vol] 5.4 10*3/uL 3.8-11.6 [facility] Basophils Auto (Bld) [#/Vol] on 08-07-2023 Basophils (Bld) [#/Vol] 0.0 10 3/uL 0.0-0.1 [facility] Basophils/100 WBC Auto (Bld) on 08-07-2023 Basophils/100 WBC (Bld) 0.5 % 0.2-2.0 [facility] Eosinophils/100 WBC Auto (Bl d)on 08-07-2023 Eosinophils/100 WBC (Bld) 1.1 % 0.9-7.0 [facility] Erythrocyte distribution wid th Auto (RBC) [Ratio]on 08-07-2023 Erythrocyte distribution width (RBC) [Ratio] 12.6 % 11.0-15.0 [facility] Estimated glomerular filtrat ion rate (GFR) non- Americanon 08-07-2023 GFR/1.73 sq M.predicted among non-blacks MDRD (S/P/Bld) [Vol rate/Area] mL/min/{1.73_m2} >=60 [facility] Globulin Calc (S) [Mass/Vol] on 08-07-2023 Globulin (S) [Mass/Vol] 3.8 g/dL F [facility] Hematocrit Auto (Bld) [Volum e fraction]on 08-07-2023 Hematocrit (Bld) [Volume fraction] 48.4 % 36.0-48.0 [facility] Hemoglobin [Mass/volume] in Bloodon 08-07-2023 Hemoglobin (Bld) [Mass/Vol] 15.4 g/dL 12.0-16.0 [facility] Laboratory - Chemistry and C hemistry - challengeon 08-07-2023 Albumin [Mass/Vol] 3.4 g/dL 3.4-5.0 [facility] ALP [Catalytic activity/Vol] 118 U/L 46-116 [facility] ALT [Catalytic activity/Vol] 23 U/L 14-59 [facility] AST [Catalytic activity/Vol] 20 U/L 15-37 [facility] Bilirubin [Mass/Vol] 0.4 mg/dL 0.2-1.0 [facility] Calcium [Mass/Vol] 9.4 mg/dL 8.5-10.1 [facility] Chloride [Moles/Vol] 106 mmol/L 98-107 [facility] CO2 [Moles/Vol] 28.0 mmol/L 21.0-32.0 [facility] Creatinine [Mass/Vol] 0.80 mg/dL 0.55-1.02 [facility] GFR/1.73 sq M.predicted MDRD (S/P/Bld) [Vol rate/Area] mL/min/{1.73_m2} >=60 [facility] Glucose [Mass/Vol] 121 mg/dL 74-106 [facility] Potassium [Moles/Vol] 3.9 mmol/L 3.5-5.1 [facility] Protein [Mass/Vol] 7.2 g/dL 6.4-8.2 [facility] Sodium [Moles/Vol] 142 mmol/L 136-145 [facility] Urea nitrogen [Mass/Vol] 20.0 mg/dL 7.0-18.0 [facility] Urea nitrogen/Creatinine [Mass ratio] 25.0 mg/mg [facility] - Hematology and Cell countson 08-07-2023 Immature granulocytes/100 WBC (Bld) 0.3 % 0.0-0.5 [facility] Leukocytes [#/volume] correc guillermina for nucleated erythrocytes in Blood by Automated counon 08-07-2023 WBC corrected for nucl RBC Auto (Bld) [#/Vol] 7.5 10 3/uL 4.0-11.0 [facility] Lymphocytes Auto (Bld) [#/Vo l]on 08-07-2023 Lymphocytes (Bld) [#/Vol] 3.4 10 3/uL 1.2-3.8 [facility] Lymphocytes/100 WBC Auto (Bl d)on 08-07-2023 Lymphocytes/100 WBC (Bld) 45.6 % 20.5-60.0 [facility] MCH Auto (RBC) [Entitic mass ]on 08-07-2023 MCH (RBC) [Entitic mass] 29.7 pg 26.7-34.0 [facility] MCHC Auto (RBC) [Mass/Vol]on 08-07-2023 MCHC (RBC) [Mass/Vol] 31.8 g/dL 29.9-35.2 [facility] MCV Auto (RBC) [Entitic vol] on 08-07-2023 MCV (RBC) [Entitic vol] 93.3 fL 81.0-99.0 F [facility] Monocytes Auto (Bld) [#/Vol] on 08-07-2023 Monocytes (Bld) [#/Vol] 0.7 10 3/uL 0.3-0.8 [facility] [facility] Mon[facility]/100 WBC Auto (Bld) on 08-07-2023 Monocytes/100 WBC (Bld) 8.6 % 1.7-12.0 [facility] Neutrophils Auto (Bld) [#/Vo l]on 08-07-2023 Neutrophils (Bld) [#/Vol] 3.3 10 3/uL 1.4-6.5 [facility] Neutrophils/100 WBC Auto (Bl d)on 08-07-2023 Neutrophils/100 WBC (Bld) 43.9 % 43.0-75.0 [facility] No Panel Informationon 08-06 Eosinophils # (Auto) 0.1 10 3/uL 0.0-0.7 [facility] Immature Granulocyte # (Auto) 0.02 10 3/uL 0.00-0.03 [facility] Platelet mean volume Auto (B ld) [Entitic vol]on 08-07-2023 Platelet mean volume (Bld) [Entitic vol] 12.5 fL 9.5-13.5 [facility] Platelets Auto (Bld) [#/Vol] on 08-07-2023 Platelets (Bld) [#/Vol] 238 10 3/uL 150-450 [facility] RBC Auto (Bld) [#/Vol]on RBC (Bld) [#/Vol] 5.19 10 6/uL 4.20-5.40 [facility] Serum or plasma albumin/glob ulin mass ratioon 08-07-2023 Albumin/Globulin [Mass ratio] 0.9 {ratio} [facility] Serum or plasma anion gap de terminationon 08-07-2023 Anion gap [Moles/Vol] 11.9 mmol/L [facility] A1C with Estimated Average G luon 03-12-2023 Glucose [Mass/Vol] 126 mg/dL Normal [facility] Comment on above: Order Comment: Reaso n for Exam Hyperglycemia Result Comment: PERF ORMED BY: [facility] [address] [place] [address] PATHOLOGIST [employer] BEV TALBERT M.D. Performed By: #### L IPID, TSH3, CBC, CMP #### [facility] [address] HbA1c (Bld) [Mass fraction] 6.0 % High 4.3-5.6 [facility] Comment on above: Order Comment: Reaso n for Exam Hyperglycemia Result Comment: Incr eased risk for diabetes: 5.7 - 6.4 diabetes: >6.4 glycemic control for adults with diabetes: <7.0 Performed By: #### L IPID, TSH3, CBC, CMP #### [facility] [address] Alanine aminotransferase [En zymatic activity/volume] in Serum or PlasmaOrdered By: Prem Goel on 03-12-2023 ALT [Catalytic activity/Vol] 11 U/L 7-52 [facility] Albumin [Mass/volume] in Ser um or Plasma by Bromocresol green (BCG) dye binding methoOrdered By: Prem Goel on 03-12-2023 Albumin BCG dye [Mass/Vol] 3.9 g/dL 3.5-5.7 [facility] Alkaline phosphatase [Enzyma tic activity/volume] in Serum or PlasmaOrdered By: Prem Goel on 03-12-2023 ALP [Catalytic activity/Vol] 89 U/L 34-104 [facility] Aspartate aminotransferase [ Enzymatic activity/volume] in Serum or PlasmaOrdered By: Prem Goel on 03-12-2023 AST [Catalytic activity/Vol] 15 U/L 13-39 [facility] Basophils Auto (Bld) [#/Vol] Ordered By: Prem Goel on 03-12-2023 Basophils (Bld) [#/Vol] 0.0 10*3/uL 0.0-0.2 [facility] Basophils/100 WBC Auto (Bld) Ordered By: Prem Goel on 03-12-2023 Basophils/100 WBC (Bld) 0.7 % . [facility] Bilirubin.total [Mass/volume ] in Serum or PlasmaOrdered By: Prem Goel on 03-12-2023 Bilirubin [Mass/Vol] 0.6 mg/dL 0.3-1.0 [facility] Calcium [Mass/volume] in Ser um or PlasmaOrdered By: Prem Goel on 03-12-2023 Calcium [Mass/Vol] 9.4 mg/dL 8.6-10.3 [facility] Carbon dioxide, total [Moles /volume] in Serum or PlasmaOrdered By: Prem Goel on 03-12-2023 CO2 [Moles/Vol] 28.2 mmol/L 21.0-31.0 [facility] Chloride [Moles/volume] in S dede or PlasmaOrdered By: Prem Goel on 03-12-2023 Chloride [Moles/Vol] 107 mmol/L 98-107 [facility] Cholesterol [Mass/volume] in Serum or PlasmaOrdered By: Prem Goel on 03-12-2023 Cholesterol [Mass/Vol] 228 mg/dL 140-200 [facility] Comment on above: Chol less than 200 m g/dl low riskChol 201-239 mg/dl borderline riskChol 240 mg/dl and greater high risk Cholesterol in LDL Calc [Mas s/Vol]Ordered By: Prem Goel on 03-12-2023 Cholesterol in LDL [Mass/Vol] 146 mg/dL 0-100 [facility] Comment on above: LDL ATP III CLASSIFI CATIONLDL less than 100 mg/dL OptimalLDL 100-129 mg/dL Near or above optimalLDL 130-159 mg/dL Borderline highLDL 160-189 mg/dL HighLDL greater than 189 mg/dL Very high Cholesterol in VLDL Calc [Ma ss/Vol]Ordered By: Prem Goel on 03-12-2023 Cholesterol in VLDL [Mass/Vol] 15 mg/dL [facility] Complete Blood Count Auto Di ffon 03-12-2023 Basophils (Bld) [#/Vol] 0.0 10*3/uL Normal 0.0-0.2 [facility] Comment on above: Order Comment: Reaso n for Exam Hyperlipidemia Result Comment: PERF ORMED BY: [place] [address] PATHOLOGIST [employer] BEV TALBERT M.D. Performed By: #### C BC #### [address] Basophils/100 WBC (Bld) 0.7 % Normal . [facility] Comment on above: Order Comment: Reaso n for Exam Hyperlipidemia Performed By: #### C BC #### [place] [address] [place] Eosinophils (Bld) [#/Vol] 0.1 10*3/uL Normal 0.0-0.45 [facility] Comment on above: Order Comment: Reaso n for Exam Hyperlipidemia Performed By: #### C BC #### [place] [address] [place] Eosinophils/100 WBC (Bld) 2.3 % Normal . [facility] Comment on above: Order Comment: Reaso n for Exam Hyperlipidemia Performed By: #### C BC #### [address] Erythrocyte distribution width (RBC) [Ratio] 12.9 % Normal 11.9-15.3 [facility] Comment on above: Order Comment: Reaso n for Exam Hyperlipidemia Performed By: #### C BC #### [address] Hematocrit (Bld) [Volume fraction] 45.2 % Normal 34.0-46.4 [facility] Comment on above: Order Comment: Reaso n for Exam Hyperlipidemia Performed By: #### C BC #### [place] [address] [place] Hemoglobin (Bld) [Mass/Vol] 14.9 g/dL Normal 11.8-15.4 [facility] Comment on above: Order Comment: Reaso n for Exam Hyperlipidemia Performed By: #### C BC #### [place] [address] [place] Lymphocytes (Bld) [#/Vol] 2.6 10*3/uL Normal 1.00-4.8 [facility] Comment on above: Order Comment: Reaso n for Exam Hyperlipidemia Performed By: #### C BC #### [place] [id number] [place] Lymphocytes/100 WBC (Bld) 42.3 % Normal . [facility] Comment on above: Order Comment: Reaso n for Exam Hyperlipidemia Performed By: #### C BC #### [address] MCH (RBC) [Entitic mass] 29.8 pg Normal 24.7-34.3 [facility] Comment on above: Order Comment: Reaso n for Exam Hyperlipidemia Performed By: #### C BC #### [address] MCV (RBC) [Entitic vol] 90.5 fL Normal 80-100 [facility] Comment on above: Order Comment: Reaso n for Exam Hyperlipidemia Performed By: #### C BC #### [address] Mean Corpuscular HGB Conc 33.0 g/dL Normal 32.0-35.0 [facility] Comment on above: Order Comment: Reaso n for Exam Hyperlipidemia Performed By: #### C BC #### [address] Monocytes (Bld) [#/Vol] 0.6 10*3/uL Normal 0.0-0.8 [facility] Comment on above: Order Comment: Reaso n for Exam Hyperlipidemia Performed By: #### C BC #### [address] Monocytes/100 WBC (Bld) 9.1 % Normal . [facility] Comment on above: Order Comment: Reaso n for Exam Hyperlipidemia Performed By: #### C BC #### [address] Neutrophils (Bld) [#/Vol] 2.8 10*3/uL Normal 1.8-7.7 [facility] Comment on above: Order Comment: Reaso n for Exam Hyperlipidemia Performed By: #### C BC #### [address] Neutrophils/100 WBC (Bld) 45.6 % Normal . [facility] Comment on above: Order Comment: Reaso n for Exam Hyperlipidemia Performed By: #### C BC #### [address] NRBC% 0.1 /100{WBC} Normal 0-0.5 [facility] Comment on above: Order Comment: Reaso n for Exam Hyperlipidemia Performed By: #### C BC #### [address] Platelet mean volume (Bld) [Entitic vol] 10.2 fL Normal 6.3-10.7 [facility] Comment on above: Order Comment: Reaso n for Exam Hyperlipidemia Performed By: #### C BC #### [address] Platelets (Bld) [#/Vol] 201 10*3/uL Normal 150-450 [facility] Comment on above: Order Comment: Reaso n for Exam Hyperlipidemia Performed By: #### C BC #### [address] RBC (Bld) [#/Vol] 4.99 10*6/uL Normal 3.60-5.00 [facility] Comment on above: Order Comment: Reaso n for Exam Hyperlipidemia Performed By: #### C BC #### [address] WBC (Bld) [#/Vol] 6.1 10*3/uL Normal 3.8-11.6 [facility] Comment on above: Order Comment: Reaso n for Exam Hyperlipidemia Performed By: #### C BC #### [address] Comprehensive Metabolic Pane [place] 03-12-2023 Albumin [Mass/Vol] 3.9 g/dL Normal 3.5-5.7 [facility] Comment on above: Order Comment: Reaso n for Exam Hyperlipidemia Performed By: #### T SH3, LIPID, CMP #### [address] Albumin/Globulin [Mass ratio] 1.8 {ratio} Normal [facility] Comment on above: Order Comment: Reaso n for Exam Hyperlipidemia Performed By: #### T SH3, LIPID, CMP #### [facility] [address] [place] [address] ALP [Catalytic activity/Vol] 89 U/L Normal 34-104 [facility] Comment on above: Order Comment: Reaso n for Exam Hyperlipidemia Performed By: #### T SH3, LIPID, CMP #### [facility] [address] [place] [address] ALT [Catalytic activity/Vol] 11 U/L Normal 7-52 [facility] Comment on above: Order Comment: Reaso n for Exam Hyperlipidemia Performed By: #### T SH3, LIPID, CMP #### [facility] [address] [place] [address] Anion gap [Moles/Vol] 10.1 mmol/L Normal 6.0-15.0 [facility] Comment on above: Order Comment: Reaso n for Exam Hyperlipidemia Performed By: #### T SH3, LIPID, CMP #### [facility] [address] [place] [address] AST [Catalytic activity/Vol] 15 U/L Normal 13-39 [facility] Comment on above: Order Comment: Reaso n for Exam Hyperlipidemia Performed By: #### T SH3, LIPID, CMP #### [facility] [address] [place] [address] Bilirubin [Mass/Vol] 0.6 mg/dL Normal 0.3-1.0 [facility] Comment on above: Order Comment: Reaso n for Exam Hyperlipidemia Performed By: #### T SH3, LIPID, CMP #### [facility] [address] [place] [address] [place] Calcium [Mass/Vol] 9.4 mg/dL Normal 8.6-10.3 [facility] Comment on above: Order Comment: Reaso n for Exam Hyperlipidemia Performed By: #### T SH3, LIPID, CMP #### [facility] [address] [place] [address] [place] Chloride [Moles/Vol] 107 mmol/L Normal 98-107 [facility] Comment on above: Order Comment: Reaso n for Exam Hyperlipidemia Performed By: #### T SH3, LIPID, CMP #### [address] [place] [address] [place] CO2 [Moles/Vol] 28.2 mmol/L Normal 21.0-31.0 [facility] Comment on above: Order Comment: Reaso n for Exam Hyperlipidemia Performed By: #### T SH3, LIPID, CMP #### [address] Creatinine [Mass/Vol] 0.77 mg/dL Normal 0.60-1.20 [facility] Comment on above: Order Comment: Reaso n for Exam Hyperlipidemia Performed By: #### T SH3, LIPID, CMP #### [place] [address] [place] GFR/1.73 sq M.predicted MDRD (S/P/Bld) [Vol rate/Area] mL/min/{1.73_m2} Normal [facility] Comment on above: Order Comment: Reaso n for Exam Hyperlipidemia Performed By: #### T SH3, LIPID, CMP #### [address] Globulin (S) [Mass/Vol] 2.2 g/dL Normal [facility] Comment on above: Order Comment: Reaso n for Exam Hyperlipidemia Performed By: #### T SH3, LIPID, CMP #### [address] Glucose [Mass/Vol] 96 mg/dL Normal 70-100 [facility] Comment on above: Order Comment: Reaso n for Exam Hyperlipidemia Result Comment: [place] Glucose Reference Range is dependent on time and content of last meal. Glucose of more than 200 mg/dL in a nonstressed, ambulatory subject supports the diagnosis of Diabetes Mellitus. ADA recommended reference range Performed By: #### T SH3, LIPID, CMP #### [address] Potassium [Moles/Vol] 4.3 mmol/L Normal 3.5-5.1 [facility] Comment on above: Order Comment: Reaso n for Exam Hyperlipidemia Performed By: #### T SH3, LIPID, CMP #### [place] [address] [place] Protein [Mass/Vol] 6.1 g/dL Low 6.4-8.9 [facility] Comment on above: Order Comment: Reaso n for Exam Hyperlipidemia Performed By: #### T SH3, LIPID, CMP #### [facility] [address] [place] [address] [place] Sodium [Moles/Vol] 141 mmol/L Normal 136-145 [facility] Comment on above: Order Comment: Reaso n for Exam Hyperlipidemia Performed By: #### T SH3, LIPID, CMP #### [facility] [address] Urea nitrogen [Mass/Vol] 18 mg/dL Normal 7-25 [facility] Comment on above: Order Comment: Reaso n for Exam Hyperlipidemia Performed By: #### T SH3, LIPID, CMP #### [facility] [address] Creatinine [Mass/volume] in Serum or PlasmaOrdered By: Prem Goel on 03-12-2023 Creatinine [Mass/Vol] 0.77 mg/dL 0.60-1.20 [facility] Eosinophils Auto (Bld) [#/Vo l]Ordered By: Prem Goel on 03-12-2023 Eosinophils (Bld) [#/Vol] 0.1 10*3/uL 0.0-0.45 [facility] Eosinophils/100 WBC Auto (Bl d)Ordered By: Prem Goel on 03-12-2023 Eosinophils/100 WBC (Bld) 2.3 % . [facility] Erythrocyte distribution wid th Auto (RBC) [Ratio]Ordered By: Prem Goel on 03-12-2023 Erythrocyte distribution width (RBC) [Ratio] 12.9 % 11.9-15.3 [facility] Globulin Calc (S) [Mass/Vol] Ordered By: Prem Goel on 03-12-2023 Globulin (S) [Mass/Vol] 2.2 g/dL [facility] Glucose [Mass/volume] in Ser um or PlasmaOrdered By: Prem Goel on 03-12-2023 Glucose [Mass/Vol] 96 mg/dL 70-100 [facility] Comment on above: ADA recommended refe rence rangeRandom Glucose Reference Range is dependent on time and content of last meal. Glucose of more than 200 mg/dL in a nonstressed, ambulatory subject supports the diagnosis of Diabetes Mellitus. Hematocrit Auto (Bld) [Volum e fraction]Ordered By: Prem Goel on 03-12-2023 Hematocrit (Bld) [Volume fraction] 45.2 % 34.0-46.4 [facility] Hemoglobin [Mass/volume] in BloodOrdered By: Prem Goel on 03-12-2023 Hemoglobin (Bld) [Mass/Vol] 14.9 g/dL 11.8-15.4 [facility] Leukocytes [#/volume] correc guillermina for nucleated erythrocytes in Blood by Automated counOrdered By: Prem Goel on 03-12-2023 WBC corrected for nucl RBC Auto (Bld) [#/Vol] 6.1 10*3/uL 3.8-11.6 [facility] Lipid Panelon 03-12-2023 Cholesterol [Mass/Vol] 228 mg/dL High 140-200 [facility] Comment on above: Order Comment: Reaso n for Exam Hyperlipidemia Result Comment: Chol less than 200 mg/dl low risk Chol 201-239 mg/dl borderline risk Chol 240 mg/dl and greater high risk Performed By: #### L IPID, TSH3, CBC, CMP #### [facility] [address] Cholesterol in HDL [Mass/Vol] 66 mg/dL Normal 23-92 [facility] Comment on above: Order Comment: Reaso n for Exam Hyperlipidemia Result Comment: HDL CHOL ATP-III CLASSIFICATION Cardiovascular Risk HDL > or equal to 60 mg/dL LOW HDL < 40 mg/dL HIGH Performed By: #### L IPID, TSH3, CBC, CMP #### [facility] [address] [place] [id number] [place] Cholesterol.total/Araceli sterol in HDL [Mass ratio] 3.5 {ratio} Normal <5.0 [facility] Comment on above: Order Comment: Reaso n for Exam Hyperlipidemia Performed By: #### L IPID, TSH3, CBC, CMP #### [facility] [address] LDL Cholesterol,Calculated 146 mg/dL High 0-100 [facility] Comment on above: Order Comment: Reaso n for Exam Hyperlipidemia Result Comment: LDL ATP III CLASSIFICATION LDL less than 100 mg/dL Optimal LDL 100-129 mg/dL Near or above optimal LDL 130-159 mg/dL Borderline high LDL 160-189 mg/dL High LDL greater than 189 mg/dL Very high Performed By: #### L IPID, TSH3, CBC, CMP #### [facility] [address] Triglyceride w/Reflex 78 mg/dL Normal 0-149 [facility] Comment on above: Order Comment: Reaso n for Exam Hyperlipidemia Result Comment: TRIG ATP III CLASSIFICATION TRIG less than 150 mg/dL Normal TRIG 150-199 mg/dL Borderline high TRIG 200-500 mg/dL High TRIG greater than 500 mg/dL Very high Standard traceable to the Center for Disease Conrtrol and Prevention (CDC) test method. Performed By: #### L IPID, TSH3, CBC, CMP #### [facility] [address] VLDL CHOLESTEROL 15 mg/dL Normal [facility] Comment on above: Order Comment: Reaso n for Exam Hyperlipidemia Performed By: #### L IPID, TSH3, CBC, CMP #### [facility] [address] Lymphocytes Auto (Bld) [#/Vo l]Ordered By: Prem Goel on 03-12-2023 Lymphocytes (Bld) [#/Vol] 2.6 10*3/uL 1.00-4.8 [facility] Lymphocytes/100 WBC Auto (Bl d)Ordered By: Prem Goel on 03-12-2023 Lymphocytes/100 WBC (Bld) 42.3 % . [facility] MCH Auto (RBC) [Entitic mass ]Ordered By: Prem Goel on 03-12-2023 MCH (RBC) [Entitic mass] 29.8 pg 24.7-34.3 [facility] MCHC Auto (RBC) [Mass/Vol]Or dered By: Prem Goel on 10-05-2023 MCHC (RBC) [Mass/Vol] 33.0 g/dL 32.0-35.0 [facility] MCV Auto (RBC) [Entitic vol] Ordered By: Prem Goel on 03-12-2023 MCV (RBC) [Entitic vol] 90.5 fL 80-100 F [facility] Monocytes Auto (Bld) [#/Vol] Ordered By: Prem Goel on 03-12-2023 Monocytes (Bld) [#/Vol] 0.6 10*3/uL 0.0-0.8 [facility] Monocytes/100 WBC Auto (Bld) Ordered By: Prem Goel on 03-12-2023 Monocytes/100 WBC (Bld) 9.1 % . [facility] Neutrophils Auto (Bld) [#/Vo l]Ordered By: Prem Goel on 03-12-2023 Neutrophils (Bld) [#/Vol] 2.8 10*3/uL 1.8-7.7 [facility] Neutrophils/100 WBC Auto (Bl d)Ordered By: Prem Goel on 03-12-2023 Neutrophils/100 WBC (Bld) 45.6 % . [facility] No Panel InformationOrdered By: Prem Goel on 03-12-2023 Estimated GFR (CKD-EPI) > 60.0 mL/Min [facility] Creatinine Clearance (Chem N/A [facility] Nucleated erythrocytes [Pres ence] in Blood by Automated countOrdered By: Prem Goel on 03-12-2023 Nucleated RBC Auto Ql (Bld) 0.1 /100{WBC} 0-0.5 [facility] Platelet mean volume Auto (B ld) [Entitic vol]Ordered By: Prem Goel on 03-12-2023 Platelet mean volume (Bld) [Entitic vol] 10.2 fL 6.3-10.7 [facility] Platelets Auto (Bld) [#/Vol] Ordered By: Prem Goel on 03-12-2023 Platelets (Bld) [#/Vol] 201 10*3/uL 150-450 [facility] Potassium [Moles/volume] in Serum or PlasmaOrdered By: Prem Goel on 03-12-2023 Potassium [Moles/Vol] 4.3 mmol/L 3.5-5.1 [facility] Protein [Mass/volume] in Ser um or PlasmaOrdered By: Prem Goel on 03-12-2023 Protein [Mass/Vol] 6.1 g/dL 6.4-8.9 [facility] RBC Auto (Bld) [#/Vol]Ordere d By: Prem Goel on 03-12-2023 RBC (Bld) [#/Vol] 4.99 10*6/uL 3.60-5.00 [facility] Serum or plasma albumin/glob ulin mass ratioOrdered By: Prem Goel on 03-12-2023 Albumin/Globulin [Mass ratio] 1.8 {ratio} [facility] Serum or plasma anion gap de terminationOrdered By: Prem Goel on 03-12-2023 Anion gap [Moles/Vol] 10.1 mmol/L 6.0-15.0 [facility] Serum or plasma high density lipoprotein (HDL) cholesterol measurementOrdered By: Prem Goel on 03-12-2023 Cholesterol in HDL [Mass/Vol] 66 mg/dL 23-92 [facility] Comment on above: HDL CHOL ATP-III CLA SSIFICATION Cardiovascular RiskHDL > or equal to 60 mg/dL LOWHDL < 40 mg/dL HIGH Serum or plasma total choles terol/high density lipoprotein (HDL) cholesterol mass ratOrdered By: Prem Goel on 03-12-2023 Cholesterol.total/Araceli sterol in HDL [Mass ratio] 3.5 {ratio} <5.0 [facility] Sodium [Moles/volume] in Ser um or PlasmaOrdered By: Prem Goel on 03-12-2023 Sodium [Moles/Vol] 141 mmol/L 136-145 [facility] Thyroid Stimulating Hormoneo n 03-12-2023 TSH Qn 1.91 m[IU]/L Normal 0.45-5.33 [facility] Comment on above: Order Comment: Reaso n for Exam Hyperlipidemia Result Comment: PERF ORMED BY: [facility] [address] [place] [address] PATHOLOGIST [employer] BEV TALBERT M.D. Performed By: #### L IPID, TSH3, CBC, CMP #### [facility] [address] [place] [address] Thyrotropin [Units/volume] i n Serum or PlasmaOrdered By: Prem Goel on 03-12-2023 TSH Qn 1.91 m[IU]/L 0.45-5.33 [facility] Triglyceride [Mass/volume] i n Serum or PlasmaOrdered By: Prem Goel on 03-12-2023 Triglyceride [Mass/Vol] 78 mg/dL 0-149 F [facility] Comment on above: TRIG ATP III CLASSIF ICATIONTRIG less than 150 mg/dL NormalTRIG 150-199 mg/dL Borderline highTRIG 200-500 mg/dL High TRIG greater than 500 mg/dL Very highStandard traceable to the Center for Disease Conrtrol and Prevention (CDC) test method. Urea nitrogen [Mass/volume] in Serum or PlasmaOrdered By: Prem Goel on 03-12-2023 Urea nitrogen [Mass/Vol] 18 mg/dL 12-30 [facility] WBC Auto (Bld) [#/Vol]Ordere d By: Prem Goel on 03-12-2023 WBC (Bld) [#/Vol] 6.1 10*3/uL 3.8-11.6 [facility] A1C with Estimated Average G luon 10-30-2022 Glucose [Mass/Vol] 128 mg/dL Normal [facility] Comment on above: Order Comment: Reaso n for Exam Hyperglycemia Result Comment: PERF ORMED BY: [place] [address] PATHOLOGIST [employer] BEV TALBERT M.D. Performed By: #### A 1C WT eA #### [address] HbA1c (Bld) [Mass fraction] 6.1 % High 4.3-5.6 [facility] Comment on above: Order Comment: Reaso n for Exam Hyperglycemia Result Comment: Incr eased risk for diabetes: 5.7 - 6.4 diabetes: >6.4 glycemic control for adults with diabetes: <7.0 Performed By: #### A 1C WTH eA #### [address] Complete Blood Count Auto Di ffon 10-30-2022 Basophils (Bld) [#/Vol] 0.0 10*3/uL Normal 0.0-0.2 [facility] Comment on above: Order Comment: Reaso n for Exam Hyperlipidemia Result Comment: PERF ORMED BY: [place] [address] PATHOLOGIST [employer] BEV TALBERT M.D. Performed By: #### L IPID, TSH3, CBC, CMP #### [address] Basophils/100 WBC (Bld) 0.6 % Normal . [facility] Comment on above: Order Comment: Reaso n for Exam Hyperlipidemia Performed By: #### L IPID, TSH3, CBC, CMP #### [address] Eosinophils (Bld) [#/Vol] 0.5 10*3/uL High 0.0-0.45 [facility] Comment on above: Order Comment: Reaso n for Exam Hyperlipidemia Performed By: #### L IPID, TSH3, CBC, CMP #### [address] Eosinophils/100 WBC (Bld) 8.1 % Normal . [facility] Comment on above: Order Comment: Reaso n for Exam Hyperlipidemia Performed By: #### L IPID, TSH3, CBC, CMP #### [address] Erythrocyte distribution width (RBC) [Ratio] 13.8 % Normal 11.9-15.3 [facility] Comment on above: Order Comment: Reaso n for Exam Hyperlipidemia Performed By: #### L IPID, TSH3, CBC, CMP #### [address] Hematocrit (Bld) [Volume fraction] 43.9 % Normal 34.0-46.4 [facility] Comment on above: Order Comment: Reaso n for Exam Hyperlipidemia Performed By: #### L IPID, TSH3, CBC, CMP #### [address] Hemoglobin (Bld) [Mass/Vol] 14.6 g/dL Normal 11.8-15.4 [facility] Comment on above: Order Comment: Reaso n for Exam Hyperlipidemia Performed By: #### L IPID, TSH3, CBC, CMP #### [address] Lymphocytes (Bld) [#/Vol] 1.5 10*3/uL Normal 1.00-4.8 [facility] Comment on above: Order Comment: Reaso n for Exam Hyperlipidemia Performed By: #### L IPID, TSH3, CBC, CMP #### [address] Lymphocytes/100 WBC (Bld) 27.1 % Normal . [facility] Comment on above: Order Comment: Reaso n for Exam Hyperlipidemia Performed By: #### L IPID, TSH3, CBC, CMP #### [address] MCH (RBC) [Entitic mass] 30.0 pg Normal 24.7-34.3 [facility] Comment on above: Order Comment: Reaso n for Exam Hyperlipidemia Performed By: #### L IPID, TSH3, CBC, CMP #### [address] MCV (RBC) [Entitic vol] 90.4 fL Normal 80-100 T [facility] Comment on above: Order Comment: Reaso n for Exam Hyperlipidemia Performed By: #### L IPID, TSH3, CBC, CMP #### [address] Mean Corpuscular HGB Conc 33.3 g/dL Normal 32.0-35.0 [facility] Comment on above: Order Comment: Reaso n for Exam Hyperlipidemia Performed By: #### L IPID, TSH3, CBC, CMP #### [facility] [address] [place] [address] [place] Monocytes (Bld) [#/Vol] 0.6 10*3/uL Normal 0.0-0.8 [facility] Comment on above: Order Comment: Reaso n for Exam Hyperlipidemia Performed By: #### L IPID, TSH3, CBC, CMP #### [facility] [address] [place] [id number] [place] Monocytes/100 WBC (Bld) 10.7 % Normal . [facility] Comment on above: Order Comment: Reaso n for Exam Hyperlipidemia Performed By: #### L IPID, TSH3, CBC, CMP #### [facility] [address] [place] [address] [place] Neutrophils (Bld) [#/Vol] 3.0 10*3/uL Normal 1.8-7.7 [facility] Comment on above: Order Comment: Reaso n for Exam Hyperlipidemia Performed By: #### L IPID, TSH3, CBC, CMP #### [facility] [address] [place] [address] [place] Neutrophils/100 WBC (Bld) 53.5 % Normal . [facility] Comment on above: Order Comment: Reaso n for Exam Hyperlipidemia Performed By: #### L IPID, TSH3, CBC, CMP #### [facility] [address] [place] [id number] [place] NRBC% 0.1 /100{WBC} Normal 0-0.5 [facility] Comment on above: Order Comment: Reaso n for Exam Hyperlipidemia Performed By: #### L IPID, TSH3, CBC, CMP #### [facility] [address] [place] [id number] [place] Platelet mean volume (Bld) [Entitic vol] 9.7 fL Normal 6.3-10.7 [facility] Comment on above: Order Comment: Reaso n for Exam Hyperlipidemia Performed By: #### L IPID, TSH3, CBC, CMP #### [facility] [address] [place] [address] [place] Platelets (Bld) [#/Vol] 196 10*3/uL Normal 150-450 [facility] Comment on above: Order Comment: Reaso n for Exam Hyperlipidemia Performed By: #### L IPID, TSH3, CBC, CMP #### [facility] [address] RBC (Bld) [#/Vol] 4.86 10*6/uL Normal 3.60-5.00 [facility] Comment on above: Order Comment: Reaso n for Exam Hyperlipidemia Performed By: #### L IPID, TSH3, CBC, CMP #### [address] WBC (Bld) [#/Vol] 5.7 10*3/uL Normal 3.8-11.6 [facility] Comment on above: Order Comment: Reaso n for Exam Hyperlipidemia Performed By: #### L IPID, TSH3, CBC, CMP #### [address] Comprehensive Metabolic Pane [facility] 10-30-2022 Albumin [Mass/Vol] 3.6 g/dL Normal 3.5-5.7 [facility] Comment on above: Order Comment: Reaso n for Exam Hyperlipidemia Performed By: #### T SH3, CMP, LIPID #### [address] Albumin/Globulin [Mass ratio] 1.2 {ratio} Normal [facility] Comment on above: Order Comment: Reaso n for Exam Hyperlipidemia Performed By: #### T SH3, CMP, LIPID #### [address] ALP [Catalytic activity/Vol] 102 U/L Normal 34-104 [facility] Comment on above: Order Comment: Reaso n for Exam Hyperlipidemia Performed By: #### T SH3, CMP, LIPID #### [address] ALT [Catalytic activity/Vol] 14 U/L Normal 7-52 [facility] Comment on above: Order Comment: Reaso n for Exam Hyperlipidemia Performed By: #### T SH3, CMP, LIPID #### [place] [id number] [place] Anion gap [Moles/Vol] 9.0 mmol/L Normal 6.0-15.0 [facility] Comment on above: Order Comment: Reaso n for Exam Hyperlipidemia Performed By: #### T SH3, CMP, LIPID #### [facility] [address] [place] [address] AST [Catalytic activity/Vol] 18 U/L Normal 13-39 [facility] Comment on above: Order Comment: Reaso n for Exam Hyperlipidemia Performed By: #### T SH3, CMP, LIPID #### [facility] [address] [place] [address] Bilirubin [Mass/Vol] 0.5 mg/dL Normal 0.3-1.0 [facility] Comment on above: Order Comment: Reaso n for Exam Hyperlipidemia Performed By: #### T SH3, CMP, LIPID #### [facility] [address] [place] [address] [place] Calcium [Mass/Vol] 9.0 mg/dL Normal 8.6-10.3 [facility] Comment on above: Order Comment: Reaso n for Exam Hyperlipidemia Performed By: #### T SH3, CMP, LIPID #### [facility] [address] [place] [address] [place] Chloride [Moles/Vol] 106 mmol/L Normal 98-107 [facility] Comment on above: Order Comment: Reaso n for Exam Hyperlipidemia Performed By: #### T SH3, CMP, LIPID #### [facility] [address] [place] [address] [place] CO2 [Moles/Vol] 30.8 mmol/L Normal 21.0-31.0 [facility] Comment on above: Order Comment: Reaso n for Exam Hyperlipidemia Performed By: #### T SH3, CMP, LIPID #### [facility] [address] [place] [address] [place] Creatinine [Mass/Vol] 0.75 mg/dL Normal 0.60-1.20 [facility] Comment on above: Order Comment: Reaso n for Exam Hyperlipidemia Performed By: #### T SH3, CMP, LIPID #### [place] [address] [place] GFR/1.73 sq M.predicted MDRD (S/P/Bld) [Vol rate/Area] mL/min/{1.73_m2} Normal [facility] Comment on above: Order Comment: Reaso n for Exam Hyperlipidemia Performed By: #### T SH3, CMP, LIPID #### [facility] [address] [place] [id number] [place] Globulin (S) [Mass/Vol] 2.9 g/dL Normal T [facility] Comment on above: Order Comment: Reaso n for Exam Hyperlipidemia Performed By: #### T SH3, CMP, LIPID #### [facility] [address] Glucose [Mass/Vol] 92 mg/dL Normal 70-100 [facility] Comment on above: Order Comment: Reaso n for Exam Hyperlipidemia Result Comment: [place] Glucose Reference Range is dependent on time and content of last meal. Glucose of more than 200 mg/dL in a nonstressed, ambulatory subject supports the diagnosis of Diabetes Mellitus. ADA recommended reference range Performed By: #### T SH3, CMP, LIPID #### [facility] [address] [place] [id number] [place] Potassium [Moles/Vol] 4.8 mmol/L Normal 3.5-5.1 [facility] Comment on above: Order Comment: Reaso n for Exam Hyperlipidemia Performed By: #### T SH3, CMP, LIPID #### [facility] [address] [place] [id number] [place] Protein [Mass/Vol] 6.5 g/dL Normal 6.4-8.9 [facility] Comment on above: Order Comment: Reaso n for Exam Hyperlipidemia Performed By: #### T SH3, CMP, LIPID #### [facility] [address] [place] [id number] [place] Sodium [Moles/Vol] 141 mmol/L Normal 136-145 [facility] Comment on above: Order Comment: Reaso n for Exam Hyperlipidemia Performed By: #### T SH3, CMP, LIPID #### [facility] [address] [place] [id number] [place] Urea nitrogen [Mass/Vol] 18 mg/dL Normal 7-25 [facility] Comment on above: Order Comment: Reaso n for Exam Hyperlipidemia Performed By: #### T SH3, CMP, LIPID #### [facility] [address] [place] [id number] [facility] 10-30-2022 Cholesterol [Mass/Vol] 218 mg/dL High 140-200 [facility] Comment on above: Order Comment: Reaso n for Exam Hyperlipidemia Result Comment: Chol less than 200 mg/dl low risk Chol 201-239 mg/dl borderline risk Chol 240 mg/dl and greater high risk Performed By: #### T SH3, CMP, LIPID #### [facility] [address] Cholesterol in HDL [Mass/Vol] 51 mg/dL Normal 35-85 [facility] Comment on above: Order Comment: Reaso n for Exam Hyperlipidemia Result Comment: HDL CHOL ATP-III CLASSIFICATION Cardiovascular Risk HDL > or equal to 60 mg/dL LOW HDL < 40 mg/dL HIGH Performed By: #### T SH3, CMP, LIPID #### [facility] [address] Cholesterol.total/Araceli sterol in HDL [Mass ratio] 4.3 {ratio} Normal <5.0 [facility] Comment on above: Order Comment: Reaso n for Exam Hyperlipidemia Performed By: #### T SH3, CMP, LIPID #### [facility] [address] [place] [id number] [place] LDL Cholesterol,Calculated 151 mg/dL High 0-100 [facility] Comment on above: Order Comment: Reaso n for Exam Hyperlipidemia Result Comment: LDL ATP III CLASSIFICATION LDL less than 100 mg/dL Optimal LDL 100-129 mg/dL Near or above optimal LDL 130-159 mg/dL Borderline high LDL 160-189 mg/dL High LDL greater than 189 mg/dL Very high Performed By: #### T SH3, CMP, LIPID #### [facility] [address] [place] [id number] [place] Triglyceride w/Reflex 78 mg/dL Normal 0-149 [facility] Comment on above: Order Comment: Reaso n for Exam Hyperlipidemia Result Comment: TRIG ATP III CLASSIFICATION TRIG less than 150 mg/dL Normal TRIG 150-199 mg/dL Borderline high TRIG 200-500 mg/dL High TRIG greater than 500 mg/dL Very high Standard traceable to the Center for Disease Conrtrol and Prevention (CDC) test method. Performed By: #### T SH3, CMP, LIPID #### [facility] [address] VLDL CHOLESTEROL 15 mg/dL Normal [facility] Comment on above: Order Comment: Reaso n for Exam Hyperlipidemia Performed By: #### T SH3, CMP, LIPID #### [facility] [address] Thyroid Stimulating Hormoneo n 10-30-2022 TSH Qn 1.72 m[IU]/L Normal 0.45-5.33 [facility] Comment on above: Order Comment: Reaso n for Exam Hyperlipidemia Result Comment: PERF ORMED BY: [place] [address] PATHOLOGIST [employer] BEV TALBERT M.D. Performed By: #### T SH3, CMP, LIPID #### [facility] [address] Albumin [Mass/volume] in Ser um or PlasmaOrdered By: Prem Goel on 04-29-2022 Albumin [Mass/Vol] 3.4 g/dL 3.2-5.5 [facility] Basophils Auto (Bld) [#/Vol] Ordered By: Prem Goel on 04-29-2022 Basophils (Bld) [#/Vol] 0.0 10*3/uL 0.0-0.2 [facility] Basophils/100 WBC Auto (Bld) Ordered By: Prem Goel on 04-29-2022 Basophils/100 WBC (Bld) 0.3 % . F [facility] Cholesterol [Mass/volume] in Serum or PlasmaOrdered By: Prem Goel on 04-29-2022 Cholesterol [Mass/Vol] 196 mg/dL 140-200 [facility] Comment on above: Chol less than 200 m g/dl low riskChol 201-239 mg/dl borderline riskChol 240 mg/dl and greater high risk Cholesterol in LDL Calc [Mas s/Vol]Ordered By: Prem Goel on 04-29-2022 Cholesterol in LDL [Mass/Vol] 109 mg/dL 0-100 [facility] Comment on above: LDL ATP III CLASSIFI CATIONLDL less than 100 mg/dL OptimalLDL 100-129 mg/dL Near or above optimalLDL 130-159 mg/dL Borderline highLDL 160-189 mg/dL HighLDL greater than 189 mg/dL Very high Cholesterol in VLDL Calc [Ma ss/Vol]Ordered By: Prem Goel on 04-29-2022 Cholesterol in VLDL [Mass/Vol] 10 mg/dL [facility] Creatinine and Glomerular fi ltration rate.predicted panel (S/P/Bld)Ordered By: Prem Goel on 04-29-2022 Creatinine [Mass/Vol] 0.80 mg/dL 0.44-1.03 [facility] Eosinophils Auto (Bld) [#/Vo l]Ordered By: Prem Goel on 04-29-2022 Eosinophils (Bld) [#/Vol] 0.1 10*3/uL 0.0-0.45 [facility] Eosinophils/100 WBC Auto (Bl d)Ordered By: Prem Goel on 04-29-2022 Eosinophils/100 WBC (Bld) 0.5 % . [facility] Erythrocyte distribution wid th Auto (RBC) [Ratio]Ordered By: Prem Goel on 04-29-2022 Erythrocyte distribution width (RBC) [Ratio] 13.4 % 11.9-15.3 [facility] Estimated glomerular filtrat ion rate (GFR) non- AmericanOrdered By: Prem Goel on 04-29-2022 GFR/1.73 sq M.predicted among non-blacks MDRD (S/P/Bld) [Vol rate/Area] > 60 mL/Min [facility] Globulin Calc (S) [Mass/Vol] Ordered By: Prem Geol on 04-29-2022 Globulin (S) [Mass/Vol] 3.3 g/dL F [facility] Hematocrit Auto (Bld) [Volum e fraction]Ordered By: Prem Goel on 04-29-2022 Hematocrit (Bld) [Volume fraction] 46.2 % 34.0-46.4 [facility] Hemoglobin [Mass/volume] in BloodOrdered By: Prem Goel on 04-29-2022 Hemoglobin (Bld) [Mass/Vol] 14.9 g/dL 11.8-15.4 [facility] Laboratory - Hematology and Cell countsOrdered By: Prem Goel on 04-29-2022 Nucleated RBC/100 WBC (Bld) [Ratio] 0.0 % 0-0.5 [facility] Leukocytes [#/volume] in Blo od by Automated countOrdered By: Prem Goel on 04-29-2022 WBC (Bld) [#/Vol] 10.7 10*3/uL 4.5-11.0 [facility] Lymphocytes Auto (Bld) [#/Vo l]Ordered By: Prem Goel on 04-29-2022 Lymphocytes (Bld) [#/Vol] 1.9 10*3/uL 1.00-4.8 [facility] Lymphocytes/100 WBC Auto (Bl d)Ordered By: Prem Goel on 04-29-2022 Lymphocytes/100 WBC (Bld) 17.7 % . [facility] MCH Auto (RBC) [Entitic mass ]Ordered By: Prem Goel on 04-29-2022 MCH (RBC) [Entitic mass] 30.0 pg 24.7-34.3 [facility] MCHC Auto (RBC) [Mass/Vol]Or dered By: Prem Goel on 04-29-2022 MCHC (RBC) [Mass/Vol] 32.1 g/dL 32.0-35.0 [facility] MCV Auto (RBC) [Entitic vol] Ordered By: Prem Goel on 04-29-2022 MCV (RBC) [Entitic vol] 93.4 fL 80-100 F [facility] Monocytes Auto (Bld) [#/Vol] Ordered By: Prem Goel on 04-29-2022 Monocytes (Bld) [#/Vol] 1.1 10*3/uL 0.0-0.8 [facility] Monocytes/100 WBC Auto (Bld) Ordered By: Prem Goel on 04-29-2022 Monocytes/100 WBC (Bld) 10.4 % . F [facility] Neutrophils Auto (Bld) [#/Vo l]Ordered By: Prem Goel on 04-29-2022 Neutrophils (Bld) [#/Vol] 7.6 10*3/uL 1.8-7.7 [facility] Neutrophils/100 WBC Auto (Bl d)Ordered By: Prem Goel on 04-29-2022 Neutrophils/100 WBC (Bld) 71.1 % . [facility] No Panel InformationOrdered By: Prem Goel on 04-29-2022 Estimated GFR () > 60 mL/Min [facility] Comment on above: GFR estimated refere nce range: According to KDOQI guidelines, <60 ml/min/1.73m2 is sufficient to diagnose a patient with chronic kidney disease. Pharmacy Creatinine Clearance (Chem N/A [facility] Platelet mean volume Auto (B ld) [Entitic vol]Ordered By: Prem Goel on 04-29-2022 Platelet mean volume (Bld) [Entitic vol] 10.2 fL 6.3-10.7 [facility] Platelets Auto (Bld) [#/Vol] Ordered By: Prem Goel on 04-29-2022 Platelets (Bld) [#/Vol] 238 10*3/uL 150-450 [facility] Protein [Mass/volume] in Ser um or PlasmaOrdered By: Prem oGel on 04-29-2022 Protein [Mass/Vol] 6.7 g/dL 6.1-7.9 [facility] RBC Auto (Bld) [#/Vol]Ordere d By: Prem Goel on 04-29-2022 RBC (Bld) [#/Vol] 4.95 10*6/uL 3.60-5.00 [facility] Serum or plasma alanine tobias otransferase measurement without P-5'-P (enzymatic activiOrdered By: Prem Goel on 04-29-2022 ALT No additional P-5'-P [Catalytic activity/Vol] 18 U/L 10-60 [facility] Serum or plasma albumin/glob ulin mass ratioOrdered By: Prem Goel on 04-29-2022 Albumin/Globulin [Mass ratio] 1.0 {ratio} [facility] Serum or plasma alkaline joshua sphatase measurement (enzymatic activity/volume)Ordered By: Prem Goel on 04-29-2022 ALP [Catalytic activity/Vol] 100 U/L 32-92 [facility] Serum or plasma anion gap de terminationOrdered By: Prem Goel on 04-29-2022 Anion gap [Moles/Vol] 10.5 mmol/L 6.0-15.0 [facility] Serum or plasma aspartate am inotransferase measurement (enzymatic activity/volume)Ordered By: Prem Goel on 04-29-2022 AST [Catalytic activity/Vol] 19 U/L 10-42 [facility] Serum or plasma calcium erica urement (mass/volume)Ordered By: Prem Goel on 04-29-2022 Calcium [Mass/Vol] 9.2 mg/dL 8.2-10.2 [facility] Serum or plasma chloride omaira surement (moles/volume)Ordered By: Prem Goel on 04-29-2022 Chloride [Moles/Vol] 102 mmol/L 95-114 [facility] Serum or plasma glucose erica urement (mass/volume)Ordered By: Prem Goel on 04-29-2022 Glucose [Mass/Vol] 111 mg/dL 70-100 [facility] Comment on above: ADA recommended refe rence rangeRandom Glucose Reference Range is dependent on time and content of last meal. Glucose of more than 200 mg/dL in a nonstressed, ambulatory subject supports the diagnosis of Diabetes Mellitus. Serum or plasma high density lipoprotein (HDL) cholesterol measurementOrdered By: Prem Goel on 04-29-2022 Cholesterol in HDL [Mass/Vol] 76 mg/dL 35-85 [facility] Comment on above: HDL CHOL ATP-III CLA SSIFICATION Cardiovascular RiskHDL > or equal to 60 mg/dL LOWHDL < 40 mg/dL HIGH Serum or plasma potassium me asurement (moles/volume)Ordered By: Prem Goel on 04-29-2022 Potassium [Moles/Vol] 4.0 mmol/L 3.5-5.1 [facility] Serum or plasma sodium measu rement (moles/volume)Ordered By: Prem Goel on 04-29-2022 Sodium [Moles/Vol] 137 mmol/L 136-146 [facility] Serum or plasma total biliru bin measurement (mass/volume)Ordered By: Prem Goel on 04-29-2022 Bilirubin [Mass/Vol] 0.8 mg/dL 0.3-1.2 [facility] Serum or plasma total carbon dioxide measurement (moles/volume)Ordered By: Prem Goel on 04-29-2022 CO2 [Moles/Vol] 28.5 mmol/L 22.0-30.0 [facility] Serum or plasma total choles terol/high density lipoprotein (HDL) cholesterol mass ratOrdered By: Prem Goel on 04-29-2022 Cholesterol.total/Araceli sterol in HDL [Mass ratio] 2.6 {ratio} <5.0 [facility] Serum or plasma urea nitroge n measurement (mass/volume)Ordered By: Prem Goel on 04-29-2022 Urea nitrogen [Mass/Vol] 14 mg/dL 02-28 [facility] TSH DL <= 0.005 mIU/L QnOrde red By: Prem Goel on 04-29-2022 TSH Qn 1.74 m[IU]/L 0.45-5.33 [facility] Triglyceride [Mass/volume] i n Serum or PlasmaOrdered By: Prem Goel on 04-29-2022 Triglyceride [Mass/Vol] 53 mg/dL 35-149 F [facility] Comment on above: TRIG ATP III CLASSIF ICATIONTRIG less than 150 mg/dL NormalTRIG 150-199 mg/dL Borderline highTRIG 200-500 mg/dL High TRIG greater than 500 mg/dL Very highStandard traceable to the Center for Disease Conrtrol and Prevention (CDC) test method. A1C HEMOGLOBINon 04-30-2021 HbA1c (Bld) [Mass fraction] 5.8 % [facility] Other HbA1c (Bld) [Mass fraction]o n 04-30-2021 A1C HEMOGLOBIN [email or web address] Other [facility] CARDIAC STRESS/REST ([facility] CARDIAL PERFUSION/MIBI)on 04-09-2020 [facility] CARDIAC STRESS/REST (MYOCARDIAL PERFUSION/MIBI) Patient Name: MARY WILKERSON STUDY: MYOCARDIAL PERFUSION STRESS TEST WITH LEXISCAN Performing facility: [facility], [address] [place] [address], [address], [place] [address] [facility] Provider: WP SMYTH PCP: Dr. PREM GOEL Supervising provider: WP SMYTH INDICATION: CP HISTORY: Gender: F; Age: 84 y/o ; Height: 157.48 cm; Weight: 78.8926796 kg. High Cholesterol; CP Family HX CAD; Denies smoking. COMPARISON: Previous nuclear testing completed [id number] at [facility]. ACCESSION NUMBER(S): [id number] ORDERING CLINICIAN: MATT SMYTH TECHNIQUE: ONE DAY [...] comparison. Electronically signed by: BRIELLE DUVAL MD [facility] CARDIAC STRESS/REST INJE CTIONon 04-09-2020 [facility] CARDIAC STRESS/REST INJECTION Patient Name: MARY WILKERSON STUDY: MYOCARDIAL PERFUSION STRESS TEST WITH LEXISCAN Performing facility: [facility], [address] [place] [address], [address], [place] [address] [facility] Provider: WP SMYTH PCP: Dr. PREM GOEL Supervising provider: WP SMYTH INDICATION: CP HISTORY: Gender: F; Age: 84 y/o ; Height: 157.48 cm; Weight: 78.9052154 kg. High Cholesterol; CP Family HX CAD; Denies smoking. COMPARISON: Previous nuclear testing completed [id number] at [facility]. ACCESSION NUMBER(S): [id number] ORDERING CLINICIAN: MATT SYMTH TECHNIQUE: ONE DAY protocol. Stress injection: Date:04/09/2020, [...] comparison. Electronically signed by: BRIELLE DUVAL MD [facility] PART 2 STRESS OR REST (N O CHARGE)on 04-09-2020 [facility] PART 2 STRESS OR REST (NO CHARGE) Patient Name: MARY WILKERSON STUDY: MYOCARDIAL PERFUSION STRESS TEST WITH LEXISCAN Performing facility: [facility], [address], [address], [place] [address] [facility] Provider: WP SMYTH PCP: Dr. PREM GOEL Supervising provider: WP SMYTH INDICATION: CP HISTORY: Gender: F; Age: 84 y/o ; Height: 157.48 cm; Weight: 78.9550013 kg. High Cholesterol; CP Family HX CAD; Denies smoking. COMPARISON: Previous nuclear testing completed at [facility]. ACCESSION NUMBER(S): [id number] ORDERING CLINICIAN: MATT SMYTH TECHNIQUE: ONE DAY [...] comparison. Electronically signed by: BRIELLE DUVAL MD [facility] Vital Signs Date Time Vital Sign Value Performing Clinician Facility 03-17-2023 08:45-0400 Body height 154.94 cm Prem Kuns Other [facility] [facility] Other 03-17-2023 08:45-0400 Body mass index (BMI) [Ratio] 30.98 kg/m2 Prem Kuns Other [facility] Other 03-17-2023 08:45-0400 Body weight 74.39 kg Prem Kuns Other [facility] Other 03-17-2023 08:45-0400 Diastolic blood pressure 76 mm[Hg] Prem Kuns Other [facility] Other 03-17-2023 08:45-0400 Respiratory rate 16 /min Prem Kuns Other [facility] Other 03-17-2023 08:45-0400 SaO2% (BldA) [Mass fraction] 96 % Prem Kuns Other [facility] Other 03-17-2023 08:45-0400 Systolic blood pressure 120 mm[Hg] Prem Kuns Other [facility] Other 11-12-2022 14:45-0400 Body height 154.94 cm Prem Kuns Other [facility] Other 11-12-2022 14:45-0400 Body mass index (BMI) [Ratio] 31.36 kg/m2 Prem Kuns Other [facility] Other 11-12-2022 14:45-0400 Body weight 75.3 kg Prem Kuns Other [facility] Other 11-12-2022 14:45-0400 Diastolic blood pressure 68 mm[Hg] Prem Kuns Other [facility] Other 11-12-2022 14:45-0400 Respiratory rate 16 /min Prem Kuns Other [facility] Other 11-12-2022 14:45-0400 SaO2% (BldA) [Mass fraction] 93 % Prem Kuns Other [facility] Other 11-12-2022 14:45-0400 Systolic blood pressure 124 mm[Hg] Prem Kuns Other [facility] Other 01-28-2022 11:15-0400 Body height 154.94 cm Prem Kuns Other [facility] Other 01-28-2022 11:15-0400 Body mass index (BMI) [Ratio] 30.98 kg/m2 Prem Kuns Other [facility] [facility] Other 01-28-2022 11:15-0400 Body weight 74.39 kg Prem Kuns Other [facility] [facility] Other 01-28-2022 11:15-0400 Diastolic blood pressure 82 mm[Hg] Prem Kuns Other [facility] [facility] Other 01-28-2022 11:15-0400 Respiratory rate 18 /min Prem Kuns Other [facility] [facility] Other 01-28-2022 11:15-0400 SaO2% (BldA) [Mass fraction] 95 % Prem Kuns Other [facility] [facility] Other 01-28-2022 11:15-0400 Systolic blood pressure 142 mm[Hg] Prem Kuns Other [facility] Other 08-15-2021 14:45-0500 Body height 154.94 cm Prem Kuns Other [facility] [facility] Other 08-15-2021 14:45-0500 Body mass index (BMI) [Ratio] 30.04 kg/m2 Prem Kuns Other [facility] [facility] Other 08-15-2021 14:45-0500 Body weight 72.12 kg Prem Kuns Other [facility] Other 08-15-2021 14:45-0500 Diastolic blood pressure 80 mm[Hg] Prem Kuns Other [facility] Other 08-15-2021 14:45-0500 Respiratory rate 16 /min Prem Kuns Other [facility] Other 08-15-2021 14:45-0500 SaO2% (BldA) [Mass fraction] 99 % Prem Kuns Other [facility] Other 08-15-2021 14:45-0500 Systolic blood pressure 142 mm[Hg] Prem Kuns Other [facility] Other 04-30-2021 11:45-0500 Body height 154.94 cm Prem Kuns Other [facility] Other 04-30-2021 11:45-0500 Body mass index (BMI) [Ratio] 29.74 kg/m2 Prem Kuns Other [facility] Other 04-30-2021 11:45-0500 Body weight 71.4 kg Prem Kuns Other [facility] Other 04-30-2021 11:45-0500 Diastolic blood pressure 87 mm[Hg] Prem Kuns Other [facility] Other 04-30-2021 11:45-0500 Respiratory rate 18 /min Prem Kuns Other [facility] Other 04-30-2021 11:45-0500 SaO2% (BldA) [Mass fraction] 93 % Prem Kuns Other [facility] Other 04-30-2021 11:45-0500 Systolic blood pressure 136 mm[Hg] Prem Kuns Other [facility] Other 02-28-2021 11:15-0400 Body height 154.94 cm Prem Kuns Other [facility] Other 02-28-2021 11:15-0400 Body mass index (BMI) [Ratio] 29.85 kg/m2 Prem Kuns Other [facility] Other 02-28-2021 11:15-0400 Body weight 71.67 kg Prem Kuns Other [facility] Other 02-28-2021 11:15-0400 Diastolic blood pressure 86 mm[Hg] Prem Kuns Other [facility] Other 02-28-2021 11:15-0400 Respiratory rate 16 /min Prem Kuns Other [facility] Other 02-28-2021 11:15-0400 SaO2% (BldA) [Mass fraction] 97 % Premsaloni Cabezass Other [facility] Other 02-28-2021 11:15-0400 Systolic blood pressure 134 mm[Hg] Prem Raulitos Other [facility] [employer] Other Encounters Encounter Date Encounter Type Care Provider Facility Start: 09-18-2023 End: 09-18-2023 ambulatory Prem Kuns Facility:[facility] Start: 09-18-2023 End: 09-18-2023 ambulatory DO Prem Kuns Work Phone: [facility] Work Phone: Start: 09-18-2023 End: 09-18-2023 Patient encounter procedure DO Prem Kuns Work Phone: [facility] [place] Work Phone: Start: 08-11-2023 Non-patient / Non-visit DO Prem Kuns Work Phone: [facility] Work Phone: Start: 08-07-2023 Non-patient / Non-visit DO Prem Kuns Work Phone: [facility] Work Phone: Start: 08-03-2023 Non-patient / Non-visit DO Prem Kuns Work Phone: [facility] Work Phone: Start: 05-27-2023 End: 05-27-2023 ambulatory Prem Kuns Other [facility] [employer] Other Start: 05-27-2023 Telephone encounter Prem Raulitos [facility] [place] Start: 03-17-2023 End: 03-17-2023 ambulatory Prem Kuns Other [facility] [facility] Other Start: 03-17-2023 Office outpatient visit 25 minutes Prem Kuns [facility] Start: 03-12-2023 End: 03-12-2023 ambulatory Prem Raulitos Facility:[facility] Start: 03-12-2023 End: 03-12-2023 ambulatory DO Prem Kuns Work Phone: [facility] Work Phone: Start: 03-12-2023 End: 03-12-2023 Patient encounter procedure DO Prem Kuns Work Phone: [facility] [place] Work Phone: Start: 01-30-2023 End: 01-30-2023 ambulatory Prem Kuns Other [facility] Other Start: 01-30-2023 Telephone encounter Prem Kuns [facility] Start: 11-12-2022 End: 11-12-2022 ambulatory Prem Raulitos Other [facility] Other Start: 11-12-2022 Office outpatient visit 25 minutes Prem Raulitos [facility] [place] Start: 11-04-2022 End: 11-04-[address] PREM GOEL Facility:[facility] Start: 11-04-2022 Telephone encounter [facility] Start: 10-30-2022 End: 10-30-2022 ambulatory Prem Goel Facility:[facility] Start: 10-14-2022 End: 10-14-[address] [...] 05-06-2022 Annual wellness visit Prem arevalo Other [facility] [facility] Other Start: 04-29-2022 End: 04-29-2022 ambulatory DO Prem Goel Work Phone: [facility] Work Phone: Start: 04-29-2022 End: 04-29-2022 Patient encounter procedure DO Prem Goel Work Phone: [facility] [place] Start: 03-06-2022 End: 03-07-[address] KHOA RAMOS . Facility:[facility] Start: 02-27-2022 End: 02-27-2022 ambulatory Prem Goel Other [facility] Other Start: 02-27-2022 Telephone encounter Prem Goel [facility] Start: 02-18-2022 End: 02-18-[address] KHOA RAMOS . Facility:[facility] Start: 01-28-2022 End: 01-28-2022 ambulatory Prem Goel Other [facility] Other Start: 01-28-2022 Office outpatient visit 15 minutes Prem Goel [facility] Start: 01-21-2022 End: 01-22-[address] KHOA RAMOS . Facility:[facility] Start: 12-02-2021 End: 12-02-2021 ambulatory Prem Goel Other [facility] Other Start: 12-02-2021 Telephone encounter Prem Kuns [facility] Start: 11-28-2021 End: 11-28-2021 ambulatory Prem Kuns Other [facility] Other Start: 11-28-2021 Telephone encounter Prem Kuns [facility] [place] Start: 10-02-2021 End: 10-02-2021 ambulatory Prem Kuns Other [facility] Other Start: 10-02-2021 Telephone encounter Prem Kuns [facility] [place] Start: 09-10-2021 End: 09-10-2021 ambulatory Prem Kuns Other [facility] Other Start: 09-10-2021 Telephone encounter [facility] Kuns [facility] Start: 08-15-2021 End: 08-15-2021 ambulatory Prem Kuns Other [facility] Other Start: 08-15-2021 Office outpatient visit 25 minutes Prem Kuns [facility] [place] Start: 08-12-2021 End: 08-12-2021 ambulatory Prem Kuns Other [facility] Other Start: 08-12-2021 Telephone encounter Prem Kuns [facility] Start: 06-13-2021 End: 06-13-2021 ambulatory Prem Kuns Other [facility] [facility] Other Start: 06-13-2021 Telephone encounter Prem Kuns [facility] [place] Start: 04-30-2021 End: 04-30-2021 ambulatory Prem Kuns Other [facility] Other Start: 04-30-2021 Office outpatient visit 25 minutes Prem Kuns [facility] [place] Start: 02-28-2021 End: 02-28-2021 ambulatory Prem Goel Other [facility] Other Start: 02-28-2021 Patient encounter procedure Prem Goel [facility] [place] Start: 08-18-2019 Annual wellness visit Prem arevalo Other [facility] Other Plan of Treatment Date Care Activity Detail Author Glucose measurement estimated from glycated hemoglobin [facility] enter Glucose measurement estimated from glycated hemoglobin [facility] enter [facility] Immunizations Immunization Date Immunization Notes Care Provider Fa cility 06-13-2021 COVID-19 Vaccine Pfizer - Documentation Purposes Only Premsaloni Cabezass Other [facility] 07-19-2020 COVID-19 Vaccine Pfizer - Documentation Purposes Only Premsaloni Cabezass Other [facility] 06-29-2020 COVID-19 Vaccine Pfizer - Documentation Purposes Only Prem Raulitos Other [facility] NEGATED: Highlighted row has not occurred!05-06-2022 influenza, seasonal, injectable Patient Objection Premsaloni Cabezass Other [facility] Other NEGATED: Highlighted row has not occurred!05-06-2022 Prevnar 20 Patient Objection Premsaloni Cabezass Other [facility] Other NEGATED: Highlighted row has not occurred!02-17-2019 influenza, seasonal, injectable Patient Objection Prem Raulitos Other [facility] Other NEGATED: Highlighted row has not occurred!04-07-2017 influenza, seasonal, injectable Patient Objection Prem Kuns Other [facility] Other Payers Date Payer Category Payer Self-pay [id number] Private Health Insurance [id number] 1935 Unknown [id number] 1935 Unknown [id number] [id number] 1937 Unknown [id number] [id number] 1937 Unknown [id number] [id number] 1937 Unknown [id number] [id number] 1937 Unknown [id number] 2..840.1.366742.3.579.2.593 1937 Unknown [id number] 2.16.840.1.957692.3.579.2.593 1937 Unknown [id number] 2..840.1.460872.3.579.2.593 1937 Unknown [id number] 2.16.840.1.113659.3.579.2.593 1937 Unknown [id number] 2.840.1.152670.3.579.2.593 1935 Unknown [id number] [id number] Medicare Medicare [id number] Unknown [facility] Health Claims [id number] Unknown [id number] [id number] Unknown [id number] [id number] Unknown [id number] 2.16.840.1.293865.3.579.2.531 Social History Date Type Detail Facility Unknown if ever smoked [facility] Other Sex Assigned At Sex Assigned At Bir th [facility] Other Start: 03-28-2020 End: 07-02-2023 Tobacco smoking status NHIS Never smoked tobacco (finding) [facility] Start: 1935 Sex Assigned At Female F [facility] Clinical Notes 12-21-2007 to [...] exercise regimen; we will continue to monitor. [facility] Other 08-25-2023 Evaluation note* Encounter Date Diagnosis Assessment Notes Treatment Notes Treatment Clinical Notes Jan, Hyperlipidemia (ICD-10 - E78.5) [facility] Other 06-07-2023 Evaluation note* Encounter Date Diagnosis Assessment Notes Treatment Notes Treatment Clinical Notes Nov, Bronchopneumonia (ICD-10 - J18.0) [facility] records reviewed from both [...] this time patient appears to be improving [facility] Other 04-27-2023 NoteCONSULTATION CONSULTATION DATE: 10/02/2022 TO: [...] our patients to inform us about any ovvb-wde-rvqvlrq medications or herbal remedies/nutritional supplements/alternative remedies. 2. [...] treatment options with their primary care provider.[id number] Note CONSULTATION CONSULTATION DATE: 09/04/2022 TO: Dr. [...] mg pills, 1-2 at h.s. as tolerated.[id number] NoteCONSULTATION CONSULTATION DATE: 07/22/2022 CHIEF COMPLAINT: Right [...] her understand and would like to proceed,.[facility] 05-08-2022 NoteCONSULTATION CONSULTATION DATE: 05/08/2022 HISTORY OF [...] in three months' time unless otherwise indicated.[id number] NoteCONSULTATION CONSULTATION DATE: 03/06/2022 This is a [...] of care and all questions were answered.[id number] Evaluation note* Encounter Date Diagnosis Assessment Notes Treatment Notes Treatment Clinical Notes Feb, Hyperlipidemia (ICD-10 - E78.5) [facility] Other 08-23-2022 Evaluation note* Encounter Date Diagnosis [...] E78.5) Jan, Hyperglycemia (ICD-1 0 - R73.9) [facility] Other 08-16-2022 NoteCONSULTATION CONSULTATION DATE: 01/21/2022 CHIEF [...] her understand. CC: Dr. Raphael Escamilla D.O.[facility] [id number] NotePROCEDURE: [employer] HDXT 1.5 Sagittal T1, T2, STIR [...] and signed by Ralph Figueroa on 10/25/2021 [facility]10[facility]03-10-2022 Evaluation note* Encounter Date Diagnosis Assessment [...] we will attempt to order an MRI. [facility] Other 01-06-2022 Evaluation note* Encounter Date Diagnosis Assessment Notes Treatment Notes Treatment Clinical Notes Jun, Hyperlipidemia (ICD-10 - E78.5) [facility] Other 11-23-2021 Evaluation note* Encounter Date Diagnosis [...] work-up i.e. CAT scan of her abdomen. [facility] Other 09-23-2021 Evaluation note* Encounter Date Diagnosis [...] monitor, a blood work order was provided. [facility] Other 07-15-2008 History general Narrative - Reported* Type Description Date Medical History Colonoscopy 12-21-07 Medical History Stress Test 01-18-[address] Scan Abdomen and Pelvis 06-07 Medical History Mammogram 2-11 Medical History Pap 1-10 Medical History 02/2013 [facility] Medical History 10/13/13-mammogram at [facility] Medical History 12/2015 mammogram Medical History 12/2016 Mammogram Medical History 07/2019 Mammogram Medical History Cardiolite 04/09/20 Surgical History wisdom teeth Hospitalization History child [facility] Other 07-15-2008 History general Narrative - Reported* Type Description Date Medical History Colonoscopy 12-21-07 Medical History Stress Test 01-18-[address] Scan Abdomen and Pelvis 06-07 Medical History Mammogram 2-11 Medical History Pap 1-10 Medical History 02/2013 [facility] Medical History 10/13/13-mammogram at [facility] Medical History 12/2015 mammogram Medical History 12/2016 Mammogram Medical History 07/2019 Mammogram Medical History Cardiolite 04/09/20 Medical History hearing aids Surgical History wisdom teeth Hospitalization History child [facility] Other evaluation noteNo [facility] [employer] Other evaluation noteNo assessment information available [facility] Work Phone: Summary Purpose Family History [...] section and content) DATE CREATED AUTHOR 04/11/2020 [facility] DATE CREATED AUTHOR AUTHOR'S ORGANIZ ATION 10/27/2021 [facility] DATE CREATED AUTHOR AUTHOR'S ORGANIZ ATION 10/17/2022 [facility] DATE CREATED AUTHOR AUTHOR'S ORGANIZ ATION 09/19/2023 [facility] REASON FOR VISIT (unrecogniz [...] BE BASED ON THE PRIMARY CLINICAL RECORDS. [employer] [facility]. provides no warranty or guarantee of the accuracy or completeness of information in this document.
== END 2023-09-22 13:50 | disposition home or self-care (01) ==
LOC: RAD 13:50
PROVIDERS: PCP Family Medicine; Visit Provider Anesthesiology Pain Medicine
DX: M47.26 Other spondylosis with radiculopathy, lumbar region (principal)
CPT/HCPCS: 72110

== ENCOUNTER 2023-09-25 07:36 | Outpatient (OUT) | payer MEDICARE, SELFPAY ==
--- NOTE | 2023-09-25 07:39 | MR_ITS ---
[address] [address] Patient Name: ISAIAS WILKERSON MRN: [facility]:[id number] date: 1935 Sex: F Assigned Patient Location: MRI Current Patient Location: MRI Accession/Order Number: [id number] Exam Date: 09/25/2023 08:00 Report Date: 09/25/2023 16:33 At the request of: DONELL GOLDSTEIN Procedure: MR lumbar spine wo con EXAMINATION: MR lumbar spine wo con HISTORY: Lumbar Radiculopathy COMPARISON: MRI lumbar spine 10/25/2021 TECHNIQUE: A variety of imaging planes and parameters were utilized for visualization of suspected pathology. FINDINGS: For the purposes of numbering, sagittal T2 image # 10 extends from the T8 vertebral body superiorly to the S4 level inferiorly. PARASPINAL AREA: Normal with no visible mass. BONES: Mild scoliotic curvature of lumbar spine. No fracture, spondylolisthesis, bone lesion. CORD/CAUDA EQUINA: Normal caliber, contour, and signal intensity. DISC LEVELS: T10-11 through T12-L1: Moderate diffuse disc bulging resulting in moderate foramen narrowing bilaterally. Mild central canal narrowing. L1-L2: Mild central canal and bilateral foramen narrowing. Moderate disc height reduction and mild diffuse disc bulging. Mild bilateral facet arthropathy and ligamentum flavum thickening. L2-L3: Moderate central canal narrowing secondary to mild diffuse disc bulging and prominent left paracentral disc extrusion projecting 7 mm into the central canal and 8 mm cephalad to the inferior endplate of L2. Mild-moderate compression of descending nerve roots between the extrusion and left facets, which may change with positioning. Mild foramen narrowing bilaterally. L3-L4: Moderate-marked right foramen narrowing. Mild central canal and left foramen narrowing. Marked disc space narrowing without significant posterior disc bulging. Small disc osteophyte complex projecting into right foramen and mild degenerative facet arthropathy. L4-L5: Moderate-marked right foramen and mild left foramen narrowing. Mild central canal narrowing. Mild diffuse disc bulging and moderate disc height reduction. Moderate bilateral facet arthropathy and ligamentum flavum thickening. L5-S1: Mild foramen narrowing bilaterally without significant central canal narrowing. Moderate diffuse disc bulging without disc at reduction. Marked degenerative facet arthropathy with prominent ligamentum flavum thickening. MR/MR lumbar spine wo con IMPRESSION: 1. Multilevel degenerative disc disease and facet arthropathy resulting in central canal and foraminal narrowing; stable to slightly progressed at all levels. 2. L2-3 left paracentral disc extrusion causing moderate central canal narrowing and likely intermittently impinging upon the descending left nerve roots. It is noted that the patient predominantly describes right leg pain/right sciatic pain. Electronically authenticated by: MAUREEN CALLEJAS Date: 09/25/2023 16:33
--- OUTSIDE RECORDS SUMMARY | 2023-09-25 07:39 | XMS_ITS | CCD ---
Author Organization [facility] Care Team Providers Care Outside Property Agent Name Role Phone Prem Goel Unavailable DO Prem Goel Primary Care Provider [phone] DO Perm Goel Attending Provider LAKSHMIPATHY ., NARENDRANATH Admitting Eda vailable RAYMON, DR AMARO Primary Care Unavailable LAKSHMIPATHY ., NARENDRANATH Attending Eda vailable LAKSHMIPATHY ., NARENDRANATH Consulting Eda vailable HALKER .TAMEKA Consulting Unavailable RAYMON, DR AMARO Primary Care Unavailable LAKSHMIPATHY ., NARFRANCISCAATH Attending Eda vailable LAKSHMIPATHY ., NARFRANCISCAATH Consulting Eda vailable LAKSHMIPATHY ., NARFRANCISCAATH Admitting Eda vailable RAYMON, DR AMARO Primary Care Unavailable LAKSHMIPATHY ., NARENDBASSAMATH Attending Eda vailable LAKSHMIPATHY ., NARENDRANATH Consulting Eda vailable LAKSHMIPATHY ., ERISATH Admitting Eda vailable RAYMON, DR AMARO Primary Care Unavailable LAKSHMIPATHY ., NARENDRANATH Admitting Eda vailable LAKSHMIPATHY ., NARENDBASSAMATH Attending Eda vailable PARAMJIT, DR KHAN Admitting [...] AMARO Primary Care Unavailable LAKSHMIPATHY ., NARENDBASSAMATH Admitting Eda vailable LAKSHMIPATHY ., NARFRANCISCAATH Attending Eda vailable LAKSHMIPATHY ., NARFRANCISCAATH Consulting Eda vailable Kuns, DO Prem Primary Care Provider Kuns, DO Prem Attending Provider Kuns, DO Prem Primary Care Provider [phone] Kuns, DO Prem Attending Provider [phone] Kuns, Prem Admitting Unavailable Kuns, Prem Primary Care Unavailable Kuns, Prem Attending Unavailable Kuns, Prem Primary Care Unavailable Kuns, Prem Attending Unavailable Kuns, Prem Admitting Unavailable Kuns, Prem Primary Care Unavailable Kuns, Prem Attending Unavailable Kuns, Prem Admitting Unavailable Medications Current Medications Medication Drug Class(es) Dates Sig (Normalized) Sig (Original) Aspir-81 81 MG (16 sources) take 1 tablet by mouth once daily Aspir-81 81 MG 1 tablet Orally Once a day Active azithromycin 250 mg oral tablet (2 sources) Macrolide Antimicrobial Zithromax Z-Amado 250 MG as directed Orally Active benzonatate 200 mg oral capsule (2 sources) Non-narcotic Antitussive take 1 capsule by mouth every eight hours Benzonatate 200 MG 1 capsule Orally Three times a day Active diclofenac sodium 75 mg delayed release oral tablet (1 source) Nonsteroidal Anti-inflammatory Drug Start: 09-24-19 take 75 mg by mouth twice daily Diclofenac Sodium Active 75 MG PO Twice daily September 24, 2023 12:00am hydroCHLOROthiazide 25 mg / triamterene 37.5 mg oral capsule (1 source) Potassium-sparing Diuretic, Thiazide Diuretic Start: 09-24-19 24 take 1 capsule by mouth once daily in the morning Triamterene-Hydrochlo rothiazid Active 1 CAP PO Every morning 90 September 24, 2023 12:00am methylPREDNISolone 4 mg oral tablet (5 sources) Corticosteroid Start: 08-16-19 methylPREDNISolone 4 MG as directed Orally as directed Aug, Active omeprazole 20 mg delayed release oral capsule (20 sources) Proton Pump Inhibitor Start: 05-20-20 17 take 20 mg by mouth once daily Omeprazole Active 20 MG PO Daily March 27, 2020 12:00am (5 sources) Active Pumpkin Seed Extract-Soy Germ (Azo Bladder Control) 300 mg capsule (1 source) Start: 09-24-19 24 Pumpkin Seed Extract-Soy Germ (Azo Bladder Control) 300 mg capsule Active CAP PO September 24, 2023 12:00am Triamcinolone (13 sources) Corticosteroid Start: 11-21-19 21 Kenalog -40 mg Nov, 1 cc Completed/Discontinued Medications Medication Drug Class(es) Dates Sig (Normalized) Sig (Original) 8 hr acetaminophen 650 mg extended release oral tablet (12 sources) Start: 09-24-2023 End: 09-24-2023 take 2 tablets by mouth every eight hours as needed Acetaminophen Discontinued 1300 MG PO Every 8 hours September 24, 2023 9:20am September 24, 2023 9:23am FreeTextSi tablets as needed Orally every 8 hrs; Note: Source Status: Taking; Provider: Raymon Amaro ( ) Start: 09-24-2023 take 2 tablets by mo ut every six hours Acetaminophen (Tylenol Extra Strength) 500 mg tablet Active 1000 MG PO Every 6 hours September 24, 2023 12:00am Start: 09-24-2023 End: 09-24-2023 take 2 tablets by mouth every eight hours as needed Acetaminophen Discontinued 2 TAB PO Every 8 hours September 24, 2023 12:00am September 24, 2023 9:22am FreeTextSi tablets as needed Orally every 8 hrs; Note: Source Status: Taking; Provider: Raymon Amaro ( ) take 2 tablets by mo ut every eight hours Acetaminophen ER 650 MG 2 tablets as needed Orally every 8 hrs Active take 2 tablets by mo uth every eight hours as needed Acetaminophen ER 650 MG 2 tablets as needed Orally every 8 hrs Active [id number] actuat albuterol 0.09 mg/actuat metered dose inhaler (5 sources) beta2-Adrenergic Agonist Start: 09-24-2023 End: 09-24-2023 take 1 puff(s) by inhalation every four hours as needed Albuterol Sulfate Discontinued 1 PUFF INHALATION Every 4 hours September 24, 2023 12:00am September 24, 2023 9:22am FreeTextSi puff as needed Inhalation every 4 hrs; Note: Source Status: Taking; Provider: Raymon Amaro ( ) take 1 puff(s) by in halation every [...] as needed Inhalation every 4 hrs Active aspirin 81 mg delayed release oral tablet (4 sources) Platelet Aggregation Inhibitor, Nonsteroidal Anti-inflammatory Drug Start: 03-27-2020 End: 09-24-2023 take 81 mg by mouth once daily Aspirin Discontinued 81 MG PO Daily March 27, 2020 12:00am September 24, 2023 9:22am atorvastatin 10 mg oral tablet (16 sources) HMG-CoA Reductase Inhibitor Start: 10-26-2017 End: 08-03-2023 take 1 tablet by mouth once daily Atorvastatin (Lipitor) 10 mg Tablet Discontinued 10 MG PO Daily March 27, 2020 12:00am August 03, 2023 5:27pm ezetimibe 10 mg oral tablet (18 sources) Dietary Cholesterol Absorption Inhibitor Start: 08-03-2023 End: 09-24-2023 take 1 tablet by mouth once daily Ezetimibe Discontinued 1 TAB PO Daily August 03, 2023 1:00am September 24, 2023 9:22am FreeTextSi tablet Orally Once a day; Note: Source Status: Continue; Provider: Raymon Casas Start: 02-28-2021 take 1 tablet by daniella th every twenty-four hours Ezetimibe 10 MG 1 tablet Orally Once a day Feb, Active Vit No.267-Daic-Rjd ic (Classic ) 28 mg iron- 800 mcg tablet (1 source) Start: 09-24-2023 End: 09-24-2023 Vit No.214-Ples-Fnw ic (Classic ) 28 mg iron- 800 mcg tablet Discontinued TAB FEEDTUBE .dly September 24, 2023 12:00am September 24, 2023 9:22am Problems Active Problems Problem Classification Problem Date Documented Date Episodic/Chronic Chronic obstructive pulmonary disease and bronchiectasis (4 sources) Bronchitis; Translations: [Bronchitis, not specified as acute or chronic] Episodic Diabetes mellitus without complication (14 sources) Hyperglycemia, unspecified; Translations: [Hyperglycemia] Onset: 04-30-2021 Resolved: 01-28-2022 Episodic Diseases of white blood cells (17 sources) Lymphocytosis; Translations: [Lymphocytosis (symptomatic)] Onset: 02-28-2021 Resolved: 02-28-2021 Chronic Disorders of lipid metabolism (20 sources) Hyperlipidemia; Translations: [Hyperlipidemia, unspecified] Onset: 02-28-2021 Resolved: 01-28-2022 Chronic E Codes: Fall (2 sources) Fall; Translations: [Unspecified fall, initial encounter] 09-24-2023 Episodic Esophageal disorders (16 sources) Gastroesophageal reflux disease; Translations: [Gastro-esophageal reflux disease without esophagitis] Chronic Genitourinary symptoms and ill-defined conditions (2 sources) Urinary incontinence; Translations: [Unspecified urinary incontinence] 09-24-2023 Chronic Lymphadenitis (1 source) Localized enlarged lymph [...] Episodic Other nutritional; endocrine; and metabolic disorders (20 sources) Obesity; Translations: [Obesity, unspecified] 04-03-2020 Chronic Other screening for suspected conditions (not mental disorders or infectious disease) (18 sources) Mammography abnormal; Translations: [Other abnormal and inconclusive findings on diagnostic imaging of breast] 09-24-2023 Episodic Pneumonia (except that caused by tuberculosis or sexually transmitted disease) (1 source) Bronchopneumonia, unspecified organism Episodic Residual codes; unclassified (16 sources) Insomnia; Translations: [Insomnia, unspecified] Episodic Residual codes; unclassified (1 source) Edema of lower extremity; Translations: [Localized edema] 09-24-2023 Episodic Residual codes; unclassified (1 source) Localized edema; Translations: [Edema] 09-24-2023 Episodic Spondylosis; intervertebral disc disorders; other back [...] Reference Range Facility A1C with Estimated Average Carlos banegas 09-18-2023 Glucose [Mass/Vol] 117 mg/dL Normal The [facility]placed by [facility] Comment on above: Order Comment: Reaso n for Exam Hyperglycemia Result Comment: PERF ORMED BY: [place] [address] PATHOLOGIST COLOR TELE[employer]ION CONSOLE MONITOR BEV TALBERT M.D. Performed By: #### L IPID, TSH3, CBC, CMP #### [facility] [address] HbA1c (Bld) [Mass fraction] 5.7 % High 4.3-5.6 The [facility] Comment on above: Order Comment: Reaso n for Exam Hyperglycemia Result Comment: Incr eased risk for diabetes: 5.7 - 6.4 diabetes: >6.4 glycemic control for adults with diabetes: <7.0 Performed By: #### L IPID, TSH3, CBC, CMP #### [facility] [address] Alanine aminotransferase [En zymatic activity/volume] in Serum or PlasmaOrdered By: Prem Goel on 09-18-2023 ALT [Catalytic activity/Vol] 15 U/L 7- [facility] Albumin [Mass/volume] in Ser um or Plasma by Bromocresol green (BCG) dye binding methoOrdered By: Prem Goel on 09-18-2023 Albumin BCG dye [Mass/Vol] 4.0 g/dL 3.5-5.7 [facility] Alkaline phosphatase [Enzyma tic activity/volume] in Serum or PlasmaOrdered By: Prem Goel on 09-18-2023 ALP [Catalytic activity/Vol] 87 U/L 34-104 [facility] Aspartate aminotransferase [ Enzymatic activity/volume] in Serum or PlasmaOrdered By: Prem Goel on 09-18-2023 AST [Catalytic activity/Vol] 16 U/L 13-39 [facility] Basophils Auto (Bld) [#/Vol] Ordered By: Prem Goel on 09-18-2023 Basophils (Bld) [#/Vol] 0.0 10*3/uL 0.0-0.2 [facility] Basophils/100 WBC Auto (Bld) Ordered By: Prem Goel on 09-18-2023 Basophils/100 WBC (Bld) 0.5 % . [facility] Bilirubin.total [Mass/volume ] in Serum or PlasmaOrdered By: Prem Goel on 09-18-2023 Bilirubin [Mass/Vol] 0.6 mg/dL 0.3-1.0 [facility] Calcium [Mass/volume] in Ser um or PlasmaOrdered By: Prem Goel on 09-18-2023 Calcium [Mass/Vol] 9.5 mg/dL 8.6-10.3 [facility] Carbon dioxide, total [Moles /volume] in Serum or PlasmaOrdered By: Prem Goel on 09-18-2023 CO2 [Moles/Vol] 28.9 mmol/L 21.0-31.0 [facility] Chloride [Moles/volume] in S dede or PlasmaOrdered By: Prem Goel on 09-18-2023 Chloride [Moles/Vol] 104 mmol/L 98-107 [facility] Cholesterol [Mass/volume] in Serum or PlasmaOrdered By: Prem Goel on 09-18-2023 Cholesterol [Mass/Vol] 289 mg/dL 140-[address] [facility] Comment on above: Chol less than 200 m g/dl low riskChol 201-239 mg/dl borderline riskChol 240 mg/dl and greater high risk Cholesterol in LDL Calc [Mas s/Vol]Ordered By: Prem Goel on 09-18-2023 Cholesterol in LDL [Mass/Vol] 197 mg/dL 0-100 [facility] Comment on above: LDL ATP III CLASSIFI CATIONLDL less than 100 mg/dL OptimalLDL 100-129 mg/dL Near or above optimalLDL 130-159 mg/dL Borderline highLDL 160-189 mg/dL HighLDL greater than 189 mg/dL Very high Cholesterol in VLDL Calc [Ma ss/Vol]Ordered By: Prem Goel on 09-18-2023 Cholesterol in VLDL [Mass/Vol] 23 mg/dL [facility] Complete Blood Count Auto Di ffon 09-18-2023 Basophils (Bld) [#/Vol] 0.0 10*3/uL Normal 0.0-0.2 The [facility] Comment on above: Result Comment: PERF ORMED BY: [place] [address] PATHOLOGIST COLOR TELEVISION CONSOLE MONITOR BEV TALBETR M.D. Performed By: #### L IPID, TSH3, CBC, CMP #### [address] Basophils/100 WBC (Bld) 0.5 % Normal . T ronny [facility] Comment on above: Performed By: #### L IPID, TSH3, CBC, CMP #### [address] Eosinophils (Bld) [#/Vol] 0.1 10*3/uL Normal 0.0-0.45 The [facility] Comment on above: Performed By: #### L IPID, TSH3, CBC, CMP #### [place] [address] [place] Eosinophils/100 WBC (Bld) 2.2 % Normal . The [facility] Comment on above: Performed By: #### L IPID, TSH3, CBC, CMP #### [address] Erythrocyte distribution width (RBC) [Ratio] 13.9 % Normal 11.9-15.3 The [facility] Comment on above: Performed By: #### L IPID, TSH3, CBC, CMP #### [address] Hematocrit (Bld) [Volume fraction] 44.9 % Normal 34.0-46.4 The [facility] Comment on above: Performed By: #### L IPID, TSH3, CBC, CMP #### [address] Hemoglobin (Bld) [Mass/Vol] 14.3 g/dL Normal 11.8-15.4 The [facility] Comment on above: Performed By: #### L IPID, TSH3, CBC, CMP #### [address] Lymphocytes (Bld) [#/Vol] 2.9 10*3/uL Normal 1.00-4.8 The [facility] Comment on above: Performed By: #### L IPID, TSH3, CBC, CMP #### [address] Lymphocytes/100 WBC (Bld) 53.2 % Normal . The [facility] Comment on above: Performed By: #### L IPID, TSH3, CBC, CMP #### [address] MCH (RBC) [Entitic mass] 29.4 pg Normal 24.7-34.3 The [facility] Comment on above: Performed By: #### L IPID, TSH3, CBC, CMP #### [address] MCV (RBC) [Entitic vol] 92.3 fL Normal 80-100 T he [facility] Comment on above: Performed By: #### L IPID, TSH3, CBC, CMP #### [address] Mean Corpuscular HGB Conc 31.9 g/dL Low 32.0-35.0 The [facility] Comment on above: Performed By: #### L IPID, TSH3, CBC, CMP #### [address] Monocytes (Bld) [#/Vol] 0.4 10*3/uL Normal 0.0-0.8 The [facility] Comment on above: Performed By: #### L IPID, TSH3, CBC, CMP #### [address] Monocytes/100 WBC (Bld) 8.0 % Normal . T he [facility] Comment on above: Performed By: #### L IPID, TSH3, CBC, CMP #### [address] Neutrophils (Bld) [#/Vol] 1.9 10*3/uL Normal 1.8-7.7 The [facility] Comment on above: Performed By: #### L IPID, TSH3, CBC, CMP #### [address] Neutrophils/100 WBC (Bld) 36.1 % Normal . The [facility] Comment on above: Performed By: #### L IPID, TSH3, CBC, CMP #### [address] NRBC% 0.2 /100{WBC} Normal 0-0.5 The [facility] Comment on above: Performed By: #### L IPID, TSH3, CBC, CMP #### [address] Platelet mean volume (Bld) [Entitic vol] 10.4 fL Normal 6.3-10.7 The [facility] Comment on above: Performed By: #### L IPID, TSH3, CBC, CMP #### [place] [address] [place] Platelets (Bld) [#/Vol] 230 10*3/uL Normal 150-450 The [facility] Comment on above: Performed By: #### L IPID, TSH3, CBC, CMP #### [place] [address] [place] RBC (Bld) [#/Vol] 4.87 10*6/uL Normal 3.60-5.00 The [facility] Comment on above: Performed By: #### L IPID, TSH3, CBC, CMP #### [facility] [address] WBC (Bld) [#/Vol] 5.4 10*3/uL Normal 3.8-11.6 The [facility]placed by [facility] Comment on above: Performed By: #### L IPID, TSH3, CBC, CMP #### [facility] [address] Comprehensive Metabolic Pane [place] 09-18-2023 Albumin [Mass/Vol] 4.0 g/dL Normal 3.5-5.7 The [facility]placed [facility] Comment on above: Order Comment: Reaso n for Exam Hyperlipidemia Performed By: #### L IPID, TSH3, CBC, CMP #### [address] Albumin/Globulin [Mass ratio] 1.7 {ratio} Normal The [facility] Comment on above: Order Comment: Reaso n for Exam Hyperlipidemia Performed By: #### L IPID, TSH3, CBC, CMP #### [address] ALP [Catalytic activity/Vol] 87 U/L Normal 34-104 The [facility] Comment on above: Order Comment: Reaso n for Exam Hyperlipidemia Performed By: #### L IPID, TSH3, CBC, CMP #### [place] [address] [place] ALT [Catalytic activity/Vol] 15 U/L Normal 7-52 The [facility] Comment on above: Order Comment: Reaso n for Exam Hyperlipidemia Performed By: #### L IPID, TSH3, CBC, CMP #### [place] [address] [place] Anion gap [Moles/Vol] 12.3 mmol/L Normal 6.0-15.0 Th e [facility] Comment on above: Order Comment: Reaso n for Exam Hyperlipidemia Performed By: #### L IPID, TSH3, CBC, CMP #### [place] [address] [place] AST [Catalytic activity/Vol] 16 U/L Normal 13-39 The [facility] Comment on above: Order Comment: Reaso n for Exam Hyperlipidemia Performed By: #### L IPID, TSH3, CBC, CMP #### [facility] [address] Bilirubin [Mass/Vol] 0.6 mg/dL Normal 0.3-1.0 The [facility] Comment on above: Order Comment: Reaso n for Exam Hyperlipidemia Performed By: #### L IPID, TSH3, CBC, CMP #### [facility] [address] Calcium [Mass/Vol] 9.5 mg/dL Normal 8.6-10.3 The [facility]placed [facility] Comment on above: Order Comment: Reaso n for Exam Hyperlipidemia Performed By: #### L IPID, TSH3, CBC, CMP #### [facility] [address] Chloride [Moles/Vol] 104 mmol/L Normal 98-107 The [facility] Comment on above: Order Comment: Reaso n for Exam Hyperlipidemia Performed By: #### L IPID, TSH3, CBC, CMP #### [facility] [address] [place] [address] [place] CO2 [Moles/Vol] 28.9 mmol/L Normal 21.0-31.0 The [facility] Comment on above: Order Comment: Reaso n for Exam Hyperlipidemia Performed By: #### L IPID, TSH3, CBC, CMP #### [facility] [address] [place] [address] [place] Creatinine [Mass/Vol] 0.79 mg/dL Normal 0.60-1.20 The [facility] Comment on above: Order Comment: Reaso n for Exam Hyperlipidemia Performed By: #### L IPID, TSH3, CBC, CMP #### [facility] [address] [place] [address] [place] GFR/1.73 sq M.predicted MDRD (S/P/Bld) [Vol rate/Area] mL/min/{1.73_m2} Normal The [facility] Comment on above: Order Comment: Reaso n for Exam Hyperlipidemia Performed By: #### L IPID, TSH3, CBC, CMP #### [facility] [address] Globulin (S) [Mass/Vol] 2.4 g/dL Normal T he [facility] Comment on above: Order Comment: Reaso n for Exam Hyperlipidemia Performed By: #### L IPID, TSH3, CBC, CMP #### [address] Glucose [Mass/Vol] 90 mg/dL Normal 70-100 The [facility]placed [facility] Comment on above: Order Comment: Reaso n for Exam Hyperlipidemia Result Comment: [facility] Glucose Reference Range is dependent on time and content of last meal. Glucose of more than 200 mg/dL in a nonstressed, ambulatory subject supports the diagnosis of Diabetes Mellitus. ADA recommended reference range Performed By: #### L IPID, TSH3, CBC, CMP #### [address] Potassium [Moles/Vol] 4.2 mmol/L Normal 3.5-5.1 The [facility] Comment on above: Order Comment: Reaso n for Exam Hyperlipidemia Performed By: #### L IPID, TSH3, CBC, CMP #### [place] [address] [place] Protein [Mass/Vol] 6.4 g/dL Normal 6.4-8.9 The [facility]placed [facility] Comment on above: Order Comment: Reaso n for Exam Hyperlipidemia Performed By: #### L IPID, TSH3, CBC, CMP #### [place] [address] [place] Sodium [Moles/Vol] 141 mmol/L Normal 136-145 The [facility] Comment on above: Order Comment: Reaso n for Exam Hyperlipidemia Performed By: #### L IPID, TSH3, CBC, CMP #### [address] Urea nitrogen [Mass/Vol] 17 mg/dL Normal 7-25 The [facility] Comment on above: Order Comment: Reaso n for Exam Hyperlipidemia Performed By: #### L IPID, TSH3, CBC, CMP #### [facility] [address] Creatinine [Mass/volume] in Serum or PlasmaOrdered By: Prem Goel on 09-18-2023 Creatinine [Mass/Vol] 0.79 mg/dL 0.60-1.20 [facility] Eosinophils Auto (Bld) [#/Vo l]Ordered By: Prem Goel on 09-18-2023 Eosinophils (Bld) [#/Vol] 0.1 10*3/uL 0.0-0.45 [facility] Eosinophils/100 WBC Auto (Bl d)Ordered By: Prem Goel on 09-18-2023 Eosinophils/100 WBC (Bld) 2.2 % . [facility] Erythrocyte distribution wid th Auto (RBC) [Ratio]Ordered By: Prem Goel on 09-18-2023 Erythrocyte distribution width (RBC) [Ratio] 13.9 % 11.9-15.3 [facility] Globulin Calc (S) [Mass/Vol] Ordered By: Prem Goel on 09-18-2023 Globulin (S) [Mass/Vol] 2.4 g/dL [facility] Glucose [Mass/volume] in Ser um or PlasmaOrdered By: Prem Goel on 09-18-2023 Glucose [Mass/Vol] 90 mg/dL 70-100 The [facility] Comment on above: ADA recommended refe rence rangeRandom Glucose Reference Range is dependent on time and content of last meal. Glucose of more than 200 mg/dL in a nonstressed, ambulatory subject supports the diagnosis of Diabetes Mellitus. Glucose mean value [Mass/vol ume] in Blood Estimated from glycated hemoglobinOrdered By: Prem Goel on 09-18-2023 Average glucose Estimated from glycated hemoglobin (Bld) [Mass/Vol] 117 mg/dL [facility] Hematocrit Auto (Bld) [Volum e fraction]Ordered By: Prem Goel on 09-18-2023 Hematocrit (Bld) [Volume fraction] 44.9 % 34.0-46.4 [facility] Hemoglobin A1c percentageOrd ered By: Prem Goel on 09-18-2023 HbA1c (Bld) [Mass fraction] 5.7 % 4.3-5.6 [facility] Comment on above: Increased risk for d iabetes: 5.7 - 6.4diabetes: >6.4glycemic control for adults with diabetes: <7.0 Hemoglobin [Mass/volume] in BloodOrdered By: Prem Goel on 09-18-2023 Hemoglobin (Bld) [Mass/Vol] 14.3 g/dL 11.8-15.4 [facility] Leukocytes [#/volume] correc guillermina for nucleated erythrocytes in Blood by Automated counOrdered By: Prem Goel on 09-18-2023 WBC corrected for nucl RBC Auto (Bld) [#/Vol] 5.4 10*3/uL 3.8-11.6 [facility] Lipid Panelon 09-18-2023 Cholesterol [Mass/Vol] 289 mg/dL High 140-200 Th e [facility] Comment on above: Order Comment: Reaso n for Exam Hyperlipidemia Result Comment: Chol less than 200 mg/dl low risk Chol 201-239 mg/dl borderline risk Chol 240 mg/dl and greater high risk Performed By: #### L IPID, TSH3, CBC, CMP #### [facility] [address] [place] [address] [place] Cholesterol in HDL [Mass/Vol] 69 mg/dL Normal 23-92 The [facility] Comment on above: Order Comment: Reaso n for Exam Hyperlipidemia Result Comment: HDL CHOL ATP-III CLASSIFICATION Cardiovascular Risk HDL > or equal to 60 mg/dL LOW HDL < 40 mg/dL HIGH Performed By: #### L IPID, TSH3, CBC, CMP #### [facility] [address] [place] [address] [place] Cholesterol.total/Araceli sterol in HDL [Mass ratio] 4.2 {ratio} Normal <5.0 The [facility] Comment on above: Order Comment: Reaso n for Exam Hyperlipidemia Performed By: #### L IPID, TSH3, CBC, CMP #### [facility] [address] [place] [address] [place] LDL Cholesterol,Calculated 197 mg/dL High 0-100 The [facility] Comment on above: Order Comment: Reaso n for Exam Hyperlipidemia Result Comment: LDL ATP III CLASSIFICATION LDL less than 100 mg/dL Optimal LDL 100-129 mg/dL Near or above optimal LDL 130-159 mg/dL Borderline high LDL 160-189 mg/dL High LDL greater than 189 mg/dL Very high Performed By: #### L IPID, TSH3, CBC, CMP #### [facility] [address] Triglyceride w/Reflex 116 mg/dL Normal 0-149 [facility] Comment on above: [...] #### L IPID, TSH3, CBC, CMP #### [facility] [address] VLDL CHOLESTEROL 23 mg/dL Normal [facility] Comment on above: Order Comment: Reaso n for Exam Hyperlipidemia Performed By: #### L IPID, TSH3, CBC, CMP #### [facility] [address] Lymphocytes Auto (Bld) [#/Vo l]Ordered By: Prem Goel on 09-18-2023 Lymphocytes (Bld) [#/Vol] 2.9 10*3/uL 1.00-4.8 [facility] Lymphocytes/100 WBC Auto (Bl d)Ordered By: Prem Goel on 09-18-2023 Lymphocytes/100 WBC (Bld) 53.2 % . [facility] MCH Auto (RBC) [Entitic mass ]Ordered By: Prem Goel on 09-18-2023 MCH (RBC) [Entitic mass] 29.4 pg 24.7-34.3 [facility] MCHC Auto (RBC) [Mass/Vol]Or dered By: Prem Goel on 09-18-2023 MCHC (RBC) [Mass/Vol] 31.9 g/dL 32.0-35.0 [facility] MCV Auto (RBC) [Entitic vol] Ordered By: Prem Goel on 09-18-2023 MCV (RBC) [Entitic vol] 92.3 fL 80-100 F [facility] Monocytes Auto (Bld) [#/Vol] Ordered By: Prem Goel on 09-18-2023 Monocytes (Bld) [#/Vol] 0.4 10*3/uL 0.0-0.8 [facility] Monocytes/100 WBC Auto (Bld) Ordered By: Prem Goel on 09-18-2023 Monocytes/100 WBC (Bld) 8.0 % . F [facility] Neutrophils Auto (Bld) [#/Vo l]Ordered By: Prem Goel on 09-18-2023 Neutrophils (Bld) [#/Vol] 1.9 10*3/uL 1.8-7.7 [facility] Neutrophils/100 WBC Auto (Bl d)Ordered By: Prem Goel on 09-18-2023 Neutrophils/100 WBC (Bld) 36.1 % . [facility] No Panel InformationOrdered By: Prem Goel on 09-18-2023 Estimated GFR (CKD-EPI) > 60.0 mL/Min [facility] Creatinine Clearance (Chem N/A [facility] Nucleated erythrocytes [Pres ence] in Blood by Automated countOrdered By: Prem Goel on 09-18-2023 Nucleated RBC Auto Ql (Bld) 0.2 /100{WBC} 0-0.5 [facility] Platelet mean volume Auto (B ld) [Entitic vol]Ordered By: Prem Goel on 09-18-2023 Platelet mean volume (Bld) [Entitic vol] 10.4 fL 6.3-10.7 [facility] Platelets Auto (Bld) [#/Vol] Ordered By: Prem Goel on 09-18-2023 Platelets (Bld) [#/Vol] 230 10*3/uL 150-450 [facility] Potassium [Moles/volume] in Serum or PlasmaOrdered By: Prem Goel on 09-18-2023 Potassium [Moles/Vol] 4.2 mmol/L 3.5-5.1 [facility] Protein [Mass/volume] in Ser um or PlasmaOrdered By: Prem Goel on 09-18-2023 Protein [Mass/Vol] 6.4 g/dL 6.4-8.9 [facility] RBC Auto (Bld) [#/Vol]Ordere d By: Prem Goel on 09-18-2023 RBC (Bld) [#/Vol] 4.87 10*6/uL 3.60-5.00 [facility] Serum or plasma albumin/glob ulin mass ratioOrdered By: Prem Goel on 09-18-2023 Albumin/Globulin [Mass ratio] 1.7 {ratio} [facility] Serum or plasma anion gap de terminationOrdered By: Prem Goel on 09-18-2023 Anion gap [Moles/Vol] 12.3 mmol/L 6.0-15.[address] [facility] Serum or plasma high density lipoprotein (HDL) cholesterol measurementOrdered By: Prem Goel on 09-18-2023 Cholesterol in HDL [Mass/Vol] 69 mg/dL 23-92 [facility] Comment on above: HDL CHOL ATP-III CLA SSIFICATION Cardiovascular RiskHDL > or equal to 60 mg/dL LOWHDL < 40 mg/dL HIGH Serum or plasma total choles terol/high density lipoprotein (HDL) cholesterol mass ratOrdered By: Prem Goel on 09-18-2023 Cholesterol.total/Araceli sterol in HDL [Mass ratio] 4.2 {ratio} <5.0 [facility] Sodium [Moles/volume] in Ser um or PlasmaOrdered By: Prem Goel on 09-18-2023 Sodium [Moles/Vol] 141 mmol/L 136-145 [facility] Thyroid Stimulating Hormoneo n 09-18-2023 TSH Qn 2.60 m[IU]/L Normal 0.45-5.33 [facility] Comment on above: Order Comment: Reaso n for Exam Hyperlipidemia Result Comment: PERF ORMED BY: [place] [address] PATHOLOGIST [employer]SOLE MONITOR BEV TALBERT M.D. Performed By: #### L IPID, TSH3, CBC, CMP #### [address] Thyrotropin [Units/volume] i n Serum or PlasmaOrdered By: Prem Goel on 09-18-2023 TSH Qn 2.60 m[IU]/L 0.45-5.33 [facility] Triglyceride [Mass/volume] i n Serum or PlasmaOrdered By: Prem Goel on 09-18-2023 Triglyceride [Mass/Vol] 116 mg/dL 0-149 [facility] Comment on above: TRIG ATP III CLASSIF ICATIONTRIG less than 150 mg/dL NormalTRIG 150-199 mg/dL Borderline highTRIG 200-500 mg/dL High TRIG greater than 500 mg/dL Very highStandard traceable to the Center for Disease Conrtrol and Prevention (CDC) test method. Urea nitrogen [Mass/volume] in Serum or PlasmaOrdered By: Prem Goel on 09-18-2023 Urea nitrogen [Mass/Vol] 17 mg/dL 7-25 [facility] WBC Auto (Bld) [#/Vol]Ordere d By: Prem Goel on 09-18-2023 WBC (Bld) [#/Vol] 5.4 10*3/uL 3.8-11.6 [facility] Basophils Auto (Bld) [#/Vol] on 08-07-2023 Basophils (Bld) [#/Vol] 0.0 10 3/uL 0.0-0.1 [facility] Basophils/100 WBC Auto (Bld) on 08-07-2023 Basophils/100 WBC (Bld) 0.5 % 0.2-2.0 [facility] Eosinophils/100 WBC Auto (Bl d)on 08-07-2023 Eosinophils/100 WBC (Bld) 1.1 % 0.9-7.0 [facility] Erythrocyte distribution wid th Auto (RBC) [Ratio]on 08-07-2023 Erythrocyte distribution width (RBC) [Ratio] 12.6 % 11.0-15.0 [facility] Estimated glomerular filtrat ion rate (GFR) non- Americanon 08-07-2023 GFR/1.73 sq M.predicted among non-blacks MDRD (S/P/Bld) [Vol rate/Area] mL/min/{1.73_m2} >=60 [facility] Globulin Calc (S) [Mass/Vol] on 08-07-2023 Globulin (S) [Mass/Vol] 3.8 g/dL F [facility] Hematocrit Auto (Bld) [Volum e fraction]on 08-07-2023 Hematocrit (Bld) [Volume fraction] 48.4 % 36.0-48.0 [facility] Hemoglobin [Mass/volume] in Bloodon 08-07-2023 Hemoglobin (Bld) [Mass/Vol] 15.4 g/dL 12.0-16.0 [facility] Laboratory - Chemistry and C hemistry - challengeon 08-07-2023 Albumin [Mass/Vol] 3.4 g/dL 3.4-5.0 [facility] ALP [Catalytic activity/Vol] 118 U/L 46-116 [facility] ALT [Catalytic activity/Vol] 23 U/L 14-59 [facility] AST [Catalytic activity/Vol] 20 U/L 15-37 [facility] Bilirubin [Mass/Vol] 0.4 mg/dL 0.2-1.0 [facility] Calcium [Mass/Vol] 9.4 mg/dL 8.5-10.1 [facility] Chloride [Moles/Vol] 106 mmol/L 98-107 [facility] CO2 [Moles/Vol] 28.0 mmol/L 21.0-32.0 [facility] Creatinine [Mass/Vol] 0.80 mg/dL 0.55-1.02 [facility] GFR/1.73 sq M.predicted MDRD (S/P/Bld) [Vol rate/Area] mL/min/{1.73_m2} >=60 [facility] Glucose [Mass/Vol] 121 mg/dL 74-106 [facility] Potassium [Moles/Vol] 3.9 mmol/L 3.5-5.1 [facility] Protein [Mass/Vol] 7.2 g/dL 6.4-8.2 [facility] Sodium [Moles/Vol] 142 mmol/L 136-145 [facility] Urea nitrogen [Mass/Vol] 20.0 mg/dL 7.0-18.0 [facility] Urea nitrogen/Creatinine [Mass ratio] 25.0 mg/mg [facility] Laboratory - Hematology and Cell countson 08-07-2023 Immature granulocytes/100 WBC (Bld) 0.3 % 0.0-0.5 [facility] Leukocytes [#/volume] correc guillermina for nucleated erythrocytes in Blood by Automated counon 08-07-2023 WBC corrected for nucl RBC Auto (Bld) [#/Vol] 7.5 10 3/uL 4.0-11.0 [facility] Lymphocytes Auto (Bld) [#/Vo l]on 08-07-2023 Lymphocytes (Bld) [#/Vol] 3.4 10 3/uL 1.2-3.8 [facility] Lymphocytes/100 WBC Auto (Bl d)on 08-07-2023 Lymphocytes/100 WBC (Bld) 45.6 % 20.5-60.0 [facility] MCH Auto (RBC) [Entitic mass ]on 08-07-2023 MCH (RBC) [Entitic mass] 29.7 pg 26.7-34.0 [facility] MCHC Auto (RBC) [Mass/Vol]on 08-07-2023 MCHC (RBC) [Mass/Vol] 31.8 g/dL 29.9-35.[address] [facility] MCV Auto (RBC) [Entitic vol] on 08-07-2023 MCV (RBC) [Entitic vol] 93.3 fL 81.0-99.0 F [facility] Monocytes Auto (Bld) [#/Vol] on 08-07-2023 Monocytes (Bld) [#/Vol] 0.7 10 3/uL 0.3-0.8 [facility] Monocytes/100 WBC Auto (Bld) on 08-07-2023 Monocytes/100 WBC (Bld) 8.6 % 1.7-12.0 [facility] Neutrophils Auto (Bld) [#/Vo l]on 08-07-2023 Neutrophils (Bld) [#/Vol] 3.3 10 3/uL 1.4-6.5 [facility] Neutrophils/100 WBC Auto (Bl d)on 03-01-2024 Neutrophils/100 WBC (Bld) 43.9 % 43.0-75.0 [facility] No Panel Informationon 08-06 Eosinophils # (Auto) 0.1 10 3/uL 0.0-0.7 [facility] Immature Granulocyte # (Auto) 0.02 10 3/uL 0.00-0.03 [facility] Platelet mean volume Auto (B ld) [Entitic vol]on 08-07-2023 Platelet mean volume (Bld) [Entitic vol] 12.5 fL 9.5-13.5 [facility] Platelets Auto (Bld) [#/Vol] on 08-07-2023 Platelets (Bld) [#/Vol] 238 10 3/uL 150-450 [facility] RBC Auto (Bld) [#/Vol]on RBC (Bld) [#/Vol] 5.19 10 6/uL 4.20-5.40 [facility] Serum or plasma albumin/glob ulin mass ratioon 08-07-2023 Albumin/Globulin [Mass ratio] 0.9 {ratio} [facility] Serum or plasma anion gap de terminationon 08-07-2023 Anion gap [Moles/Vol] 11.9 mmol/L [facility] A1C with Estimated Average G luon 03-12-2023 Glucose [Mass/Vol] 126 mg/dL Normal The [facility]placed [facility] Comment on above: Order Comment: Reaso n for Exam Hyperglycemia Result Comment: PERF ORMED BY: [place] [address] PATHOLOGIST [employer]SOLE MONITOR BEV TALBERT M.D. Performed By: #### L IPID, TSH3, CBC, CMP #### [address] HbA1c (Bld) [Mass fraction] 6.0 % High 4.3-5.6 [facility] Comment on above: Order Comment: Reaso n for Exam Hyperglycemia Result Comment: Incr eased risk for diabetes: 5.7 - 6.4 diabetes: >6.4 glycemic control for adults with diabetes: <7.0 Performed By: #### L IPID, TSH3, CBC, CMP #### [facility] [address] Alanine aminotransferase [En zymatic activity/volume] in [...] Basophils/100 WBC (Bld) 0.7 % . [facility] Bilirubin.total [Mass/volume ] in Serum or PlasmaOrdered By: Prem Goel on 03-12-2023 Bilirubin [Mass/Vol] 0.6 mg/dL 0.3-1.0 [facility] Calcium [Mass/volume] in Ser um or PlasmaOrdered By: Prem Goel on 03-12-2023 Calcium [Mass/Vol] 9.4 mg/dL 8.6-10.3 [facility] Carbon dioxide, total [Moles /volume] in Serum or PlasmaOrdered By: Prem Goel on 03-12-2023 CO2 [Moles/Vol] 28.2 mmol/L 21.0-31.0 [facility] Chloride [Moles/volume] in S dede or PlasmaOrdered By: Prem Goel on 03-12-2023 Chloride [Moles/Vol] 107 mmol/L 98-107 [facility] Cholesterol [Mass/volume] in Serum or PlasmaOrdered By: Prem Goel on 03-12-2023 Cholesterol [Mass/Vol] 228 mg/dL 140-[address] [facility] Comment on above: Chol less than [...] (Bld) [#/Vol] 0.0 10*3/uL Normal 0.0-0.2 [facility] Comment on above: Order Comment: Reaso n for Exam Hyperlipidemia Result Comment: PERF ORMED BY: [place] [address] PATHOLOGIST [employer]SOLE MONITOR BEV TALBERT M.D. Performed By: #### C BC #### [facility] [address] [place] [address] [place] Basophils/100 WBC (Bld) 0.7 % Normal . T he [facility] Comment on above: Order Comment: Reaso n for Exam Hyperlipidemia Performed By: #### C BC #### [facility] [address] [place] [address] [place] Eosinophils (Bld) [#/Vol] 0.1 10*3/uL Normal 0.0-0.45 [facility] Comment on above: Order Comment: Reaso n for Exam Hyperlipidemia Performed By: #### C BC #### [place] [address] [place] Eosinophils/100 WBC (Bld) 2.3 % Normal . [facility] Comment on above: Order Comment: Reaso n for Exam Hyperlipidemia Performed By: #### C BC #### [address] Erythrocyte distribution width (RBC) [Ratio] 12.9 % Normal 11.9-15.3 [facility] Comment on above: Order Comment: Reaso n for Exam Hyperlipidemia Performed By: #### C BC #### [address] Hematocrit (Bld) [Volume fraction] 45.2 % Normal 34.0-46.4 [facility] Comment on above: Order Comment: Reaso n for Exam Hyperlipidemia Performed By: #### C BC #### [address] Hemoglobin (Bld) [Mass/Vol] 14.9 g/dL Normal 11.8-15.4 [facility] Comment on above: Order Comment: Reaso n for Exam Hyperlipidemia Performed By: #### C BC #### [place] [address] [place] Lymphocytes (Bld) [#/Vol] 2.6 10*3/uL Normal 1.00-4.8 [facility] Comment on above: Order Comment: Reaso n for Exam Hyperlipidemia Performed By: #### C BC #### [place] [address] [place] Lymphocytes/100 WBC (Bld) 42.3 % Normal . [facility] Comment on above: Order Comment: Reaso n for Exam Hyperlipidemia Performed By: #### C BC #### [place] [address] [place] MCH (RBC) [Entitic mass] 29.8 pg Normal 24.7-34.3 The [facility] Comment on above: Order Comment: Reaso n for Exam Hyperlipidemia Performed By: #### C BC #### [place] [address] [place] MCV (RBC) [Entitic vol] 90.5 fL Normal 80-100 T [facility] Comment on above: Order Comment: Reaso n for Exam Hyperlipidemia Performed By: #### C BC #### [address] Mean Corpuscular HGB Conc 33.0 g/dL Normal 32.0-35.0 [facility] Comment on above: Order Comment: Reaso n for Exam Hyperlipidemia Performed By: #### C BC #### [place] [address] [place] Monocytes (Bld) [#/Vol] 0.6 10*3/uL Normal 0.0-0.8 The [facility] Comment on above: Order Comment: Reaso n for Exam Hyperlipidemia Performed By: #### C BC #### [address] Monocytes/100 WBC (Bld) 9.1 % Normal . T [facility] Comment on above: Order Comment: Reaso n for Exam Hyperlipidemia Performed By: #### C BC #### [place] [address] [place] Neutrophils (Bld) [#/Vol] 2.8 10*3/uL Normal 1.8-7.7 The [facility] Comment on above: Order Comment: Reaso n for Exam Hyperlipidemia Performed By: #### C BC #### [place] [address] [place] Neutrophils/100 WBC (Bld) 45.6 % Normal . [facility] Comment on above: Order Comment: Reaso n for Exam Hyperlipidemia Performed By: #### C BC #### [place] [address] [place] NRBC% 0.1 /100{WBC} Normal 0-0.5 The [facility] Comment on above: Order Comment: Reaso n for Exam Hyperlipidemia Performed By: #### C BC #### [address] Platelet mean volume (Bld) [Entitic vol] 10.2 fL Normal 6.3-10.7 The [facility] Comment on above: Order Comment: Reaso n for Exam Hyperlipidemia Performed By: #### C BC #### [facility] [address] [place] [id number] [facility] Platelets (Bld) [#/Vol] 201 10*3/uL Normal 150-450 The [facility] Comment on above: Order Comment: Reaso n for Exam Hyperlipidemia Performed By: #### C BC #### [facility] [address] [place] [address] [place] RBC (Bld) [#/Vol] 4.99 10*6/uL Normal 3.60-5.00 The [facility] Comment on above: Order Comment: Reaso n for Exam Hyperlipidemia Performed By: #### C BC #### [facility] [address] WBC (Bld) [#/Vol] 6.1 10*3/uL Normal 3.8-11.6 The [facility] Comment on above: Order Comment: Reaso n for Exam Hyperlipidemia Performed By: #### C BC #### [address] Comprehensive Metabolic Pane [place] 03-12-2023 Albumin [Mass/Vol] 3.9 g/dL Normal 3.5-5.7 The [facility] Comment on above: Order Comment: Reaso n for Exam Hyperlipidemia Performed By: #### T SH3, LIPID, CMP #### [address] Albumin/Globulin [Mass ratio] 1.8 {ratio} Normal The [facility] Comment on above: Order Comment: Reaso n for Exam Hyperlipidemia Performed By: #### T SH3, LIPID, CMP #### [facility] [address] [place] [id number] [facility] ALP [Catalytic activity/Vol] 89 U/L Normal 34-104 The [facility] Comment on above: Order Comment: Reaso n for Exam Hyperlipidemia Performed By: #### T SH3, LIPID, CMP #### [facility] [address] [place] [id number] [facility] ALT [Catalytic activity/Vol] 11 U/L Normal 7-52 The [facility] Comment on above: Order Comment: Reaso n for Exam Hyperlipidemia Performed By: #### T SH3, LIPID, CMP #### [facility] [address] [place] [address] Anion gap [Moles/Vol] 10.1 mmol/L Normal 6.0-15.0 Th e [facility] Comment on above: Order Comment: Reaso n for Exam Hyperlipidemia Performed By: #### T SH3, LIPID, CMP #### [facility] [address] [place] [address] AST [Catalytic activity/Vol] 15 U/L Normal 13-39 The [facility] Comment on above: Order Comment: Reaso n for Exam Hyperlipidemia Performed By: #### T SH3, LIPID, CMP #### [address] Bilirubin [Mass/Vol] 0.6 mg/dL Normal 0.3-1.0 The [facility] Comment on above: Order Comment: Reaso n for Exam Hyperlipidemia Performed By: #### T SH3, LIPID, CMP #### [facility] [address] [place] [address] [place] Calcium [Mass/Vol] 9.4 mg/dL Normal 8.6-10.3 The [facility] Comment on above: Order Comment: Reaso n for Exam Hyperlipidemia Performed By: #### T SH3, LIPID, CMP #### [facility] [address] [place], [place] [id number] [place] Chloride [Moles/Vol] 107 mmol/L Normal 98-107 The [facility] Comment on above: Order Comment: Reaso n for Exam Hyperlipidemia Performed By: #### T SH3, LIPID, CMP #### [facility] [address] [place], [place] [id number] [place] CO2 [Moles/Vol] 28.2 mmol/L Normal 21.0-31.0 The [facility] Comment on above: Order Comment: Reaso n for Exam Hyperlipidemia Performed By: #### T SH3, LIPID, CMP #### [facility] [address] [place], [place] [id number] [place] Creatinine [Mass/Vol] 0.77 mg/dL Normal 0.60-1.20 The [facility] Comment on above: Order Comment: Reaso n for Exam Hyperlipidemia Performed By: #### T SH3, LIPID, CMP #### [facility] [address] [place] [id number] [place] GFR/1.73 sq M.predicted MDRD (S/P/Bld) [Vol rate/Area] mL/min/{1.73_m2} Normal The [facility] Comment on above: Order Comment: Reaso n for Exam Hyperlipidemia Performed By: #### T SH3, LIPID, CMP #### [facility] [address] [place] [phone] [place] Globulin (S) [Mass/Vol] 2.2 g/dL Normal T he [facility] Comment on above: Order Comment: Reaso n for Exam Hyperlipidemia Performed By: #### T SH3, LIPID, CMP #### [facility] [address] Glucose [Mass/Vol] 96 mg/dL Normal 70-100 The [facility] Comment on above: Order Comment: Reaso n for Exam Hyperlipidemia Result Comment: [facility] Glucose Reference Range is dependent on time and content of last meal. Glucose of more than 200 mg/dL in a nonstressed, ambulatory subject supports the diagnosis of Diabetes Mellitus. ADA recommended reference range Performed By: #### T SH3, LIPID, CMP #### [facility] [address] [place] [id number] [place] Potassium [Moles/Vol] 4.3 mmol/L Normal 3.5-5.1 The [facility] Comment on above: Order Comment: Reaso n for Exam Hyperlipidemia Performed By: #### T SH3, LIPID, CMP #### [facility] [address] [place] [id number] [place] Protein [Mass/Vol] 6.1 g/dL Low 6.4-8.9 The [facility] Comment on above: Order Comment: Reaso n for Exam Hyperlipidemia Performed By: #### T SH3, LIPID, CMP #### [facility] [address] [place] [id number] [place] Sodium [Moles/Vol] 141 mmol/L Normal 136-145 The [facility] Comment on above: Order Comment: Reaso n for Exam Hyperlipidemia Performed By: #### T SH3, LIPID, CMP #### [facility] [address] [place] [address] [place] Urea nitrogen [Mass/Vol] 18 mg/dL Normal 7-25 The [facility] Comment on above: Order Comment: Reaso n for Exam Hyperlipidemia Performed By: #### T SH3, LIPID, CMP #### [facility] [address] [place] [address] [place] Creatinine [Mass/volume] in Serum or PlasmaOrdered By: Prem Goel on 03-12-2023 Creatinine [Mass/Vol] 0.77 mg/dL 0.60-1.20 [facility] Eosinophils Auto (Bld) [#/Vo l]Ordered By: [...] on 03-12-2023 Globulin (S) [Mass/Vol] 2.2 g/dL [facility] Glucose [Mass/volume] in Ser um or PlasmaOrdered By: Prem Goel on 03-12-2023 Glucose [Mass/Vol] 96 mg/dL 70-100 [facility] Comment on above: ADA recommended refe rence [...] [Mass/Vol] 228 mg/dL High 140-200 Th e [facility] Comment on above: Order Comment: Reaso n for Exam Hyperlipidemia Result Comment: Chol less than 200 mg/dl low risk Chol 201-239 mg/dl borderline risk Chol 240 mg/dl and greater high risk Performed By: #### L IPID, TSH3, CBC, CMP #### [facility] [address] [place] [id number] [place] Cholesterol in HDL [Mass/Vol] 66 mg/dL Normal 23-92 The [facility] Comment on above: Order Comment: Reaso n for Exam Hyperlipidemia Result Comment: HDL CHOL ATP-III CLASSIFICATION Cardiovascular Risk HDL > or equal to 60 mg/dL LOW HDL < 40 mg/dL HIGH Performed By: #### L IPID, TSH3, CBC, CMP #### [facility] [address] [place] [address] [place] Cholesterol.total/Araceli sterol in HDL [Mass ratio] 3.5 {ratio} Normal <5.0 The [facility] Comment on above: Order Comment: Reaso n for Exam Hyperlipidemia Performed By: #### L IPID, TSH3, CBC, CMP #### [facility] [address] [place] [address] [place] LDL Cholesterol,Calculated 146 mg/dL High 0-100 The [facility] Comment on above: Order Comment: Reaso n for Exam Hyperlipidemia Result Comment: LDL ATP III CLASSIFICATION LDL less than 100 mg/dL Optimal LDL 100-129 mg/dL Near or above optimal LDL 130-159 mg/dL Borderline high LDL 160-189 mg/dL High LDL greater than 189 mg/dL Very high Performed By: #### L IPID, TSH3, CBC, CMP #### [facility] [address] Triglyceride w/Reflex 78 mg/dL Normal 0-149 The [facility] Comment on above: [...] #### L IPID, TSH3, CBC, CMP #### [facility] [address] VLDL CHOLESTEROL 15 mg/dL Normal The [facility] Comment on above: Order Comment: Reaso n for Exam Hyperlipidemia Performed By: #### L IPID, TSH3, CBC, CMP #### [facility] [address] Lymphocytes Auto (Bld) [#/Vo l]Ordered By: [...] 03-12-2023 MCHC (RBC) [Mass/Vol] 33.0 g/dL 32.0-35.0 [facility] MCV Auto (RBC) [Entitic vol] Ordered By: Prem Goel on 03-12-2023 MCV (RBC) [Entitic vol] 90.5 fL 80-100 F [facility] Monocytes Auto (Bld) [#/Vol] Ordered By: Prem Goel on 03-12-2023 Monocytes (Bld) [#/Vol] 0.6 10*3/uL 0.0-0.8 [facility] Monocytes/100 WBC Auto (Bld) Ordered By: Prem Goel on 03-12-2023 Monocytes/100 WBC (Bld) 9.1 % . F [facility] Neutrophils Auto (Bld) [#/Vo l]Ordered [...] 03-12-2023 Potassium [Moles/Vol] 4.3 mmol/L 3.5-5.1 [facility] Protein [Mass/volume] in Ser um or PlasmaOrdered By: Prem Goel on 03-12-2023 Protein [Mass/Vol] 6.1 g/dL 6.4-8.9 [facility] RBC Auto (Bld) [#/Vol]Ordere d By: Prem Goel on 03-12-2023 RBC (Bld) [#/Vol] 4.99 10*6/uL 3.60-5.00 [facility] Serum or plasma albumin/glob ulin mass ratioOrdered By: Prem Goel on 03-12-2023 Albumin/Globulin [Mass ratio] 1.8 {ratio} [facility] Serum or plasma anion gap de terminationOrdered By: Prem Goel on 03-12-2023 Anion gap [Moles/Vol] 10.1 mmol/L 6.0-15.0 [facility] Serum or plasma high density lipoprotein (HDL) [...] on 03-12-2023 Sodium [Moles/Vol] 141 mmol/L 136-145 [facility] Thyroid Stimulating Hormoneo n 03-12-2023 TSH Qn 1.91 m[IU]/L Normal 0.45-5.33 The [facility] Comment on above: Order Comment: Reaso n for Exam Hyperlipidemia Result Comment: PERF ORMED BY: [place] [address] PATHOLOGIST [employer]OR [employer]LE[employer] CONSOLE MONITOR BEV TALBERT M.D. Performed By: #### L IPID, TSH3, CBC, CMP #### [address] Thyrotropin [Units/volume] i n Serum or PlasmaOrdered By: Prem Goel on 03-12-2023 TSH Qn 1.91 m[IU]/L 0.45-5.33 [facility] Triglyceride [Mass/volume] i n Serum or PlasmaOrdered By: Prem Goel on 03-12-2023 Triglyceride [Mass/Vol] 78 mg/dL 0-149 [facility] Comment on above: TRIG ATP III [...] 03-12-2023 WBC (Bld) [#/Vol] 6.1 10*3/uL 3.8-11.6 [facility] A1C with Estimated Average G luon 10-30-2022 Glucose [Mass/Vol] 128 mg/dL Normal The Replaced by [facility] Comment on above: Order Comment: Reaso n for Exam Hyperglycemia Result Comment: PERF ORMED BY: [place] [address] PATHOLOGIST [employer] TELE[employer] CONSOLE MONITOR BEV TALBERT M.D. Performed By: #### A 1C WT eA #### [facility] [address] [place] [address] HbA1c (Bld) [Mass fraction] 6.1 % High 4.3-5.6 The [facility] Comment on above: Order Comment: Reaso n for Exam Hyperglycemia Result Comment: Incr eased risk for diabetes: 5.7 - 6.4 diabetes: >6.4 glycemic control for adults with diabetes: <7.0 Performed By: #### A 1C WT eA #### [facility] [address] [place] [address] Complete Blood Count Auto Di ffon 10-30-2022 Basophils (Bld) [#/Vol] 0.0 10*3/uL Normal 0.0-0.2 The [facility] Comment on above: Order Comment: Reaso n for Exam Hyperlipidemia Result Comment: PERF ORMED BY: [place] [address] PATHOLOGIST [employer] TELEVIS[employer] CONSOLE MONITOR BEV TALBERT M.D. Performed By: #### L IPID, TSH3, CBC, CMP #### [address] Basophils/100 WBC (Bld) 0.6 % Normal . T he [facility] Comment on above: Order Comment: Reaso n for Exam Hyperlipidemia Performed By: #### L IPID, TSH3, CBC, CMP #### [address] Eosinophils (Bld) [#/Vol] 0.5 10*3/uL High 0.0-0.45 The [facility] Comment on above: Order Comment: Reaso n for Exam Hyperlipidemia Performed By: #### L IPID, TSH3, CBC, CMP #### [address] Eosinophils/100 WBC (Bld) 8.1 % Normal . The [facility] Comment on above: Order Comment: Reaso n for Exam Hyperlipidemia Performed By: #### L IPID, TSH3, CBC, CMP #### [address] Erythrocyte distribution width (RBC) [Ratio] 13.8 % Normal 11.9-15.3 The [facility] Comment on above: Order Comment: Reaso n for Exam Hyperlipidemia Performed By: #### L IPID, TSH3, CBC, CMP #### [address] Hematocrit (Bld) [Volume fraction] 43.9 % Normal 34.0-46.4 The [facility] Comment on above: Order Comment: Reaso n for Exam Hyperlipidemia Performed By: #### L IPID, TSH3, CBC, CMP #### [address] Hemoglobin (Bld) [Mass/Vol] 14.6 g/dL Normal 11.8-15.4 The [facility] Comment on above: Order Comment: Reaso n for Exam Hyperlipidemia Performed By: #### L IPID, TSH3, CBC, CMP #### [address] Lymphocytes (Bld) [#/Vol] 1.5 10*3/uL Normal 1.00-4.8 The [facility] Comment on above: Order Comment: Reaso n for Exam Hyperlipidemia Performed By: #### L IPID, TSH3, CBC, CMP #### [address] Lymphocytes/100 WBC (Bld) 27.1 % Normal . The [facility] Comment on above: Order Comment: Reaso n for Exam Hyperlipidemia Performed By: #### L IPID, TSH3, CBC, CMP #### [address] MCH (RBC) [Entitic mass] 30.0 pg Normal 24.7-34.3 The [facility] Comment on above: Order Comment: Reaso n for Exam Hyperlipidemia Performed By: #### L IPID, TSH3, CBC, CMP #### [address] MCV (RBC) [Entitic vol] 90.4 fL Normal 80-100 T he [facility] Comment on above: Order Comment: Reaso n for Exam Hyperlipidemia Performed By: #### L IPID, TSH3, CBC, CMP #### [address] Mean Corpuscular HGB Conc 33.3 g/dL Normal 32.0-35.0 The [facility] Comment on above: Order Comment: Reaso n for Exam Hyperlipidemia Performed By: #### L IPID, TSH3, CBC, CMP #### [place] [address] [place] Monocytes (Bld) [#/Vol] 0.6 10*3/uL Normal 0.0-0.8 The [facility] Comment on above: Order Comment: Reaso n for Exam Hyperlipidemia Performed By: #### L IPID, TSH3, CBC, CMP #### [place] [address] [place] Monocytes/100 WBC (Bld) 10.7 % Normal . T he [facility] Comment on above: Order Comment: Reaso n for Exam Hyperlipidemia Performed By: #### L IPID, TSH3, CBC, CMP #### [facility] [address] Neutrophils (Bld) [#/Vol] 3.0 10*3/uL Normal 1.8-7.7 The [facility] Comment on above: Order Comment: Reaso n for Exam Hyperlipidemia Performed By: #### L IPID, TSH3, CBC, CMP #### [facility] [address] Neutrophils/100 WBC (Bld) 53.5 % Normal . The [facility] Comment on above: Order Comment: Reaso n for Exam Hyperlipidemia Performed By: #### L IPID, TSH3, CBC, CMP #### [facility] [address] NRBC% 0.1 /100{WBC} Normal 0-0.5 The [facility] Comment on above: Order Comment: Reaso n for Exam Hyperlipidemia Performed By: #### L IPID, TSH3, CBC, CMP #### [facility] [address] Platelet mean volume (Bld) [Entitic vol] 9.7 fL Normal 6.3-10.7 The [facility] Comment on above: Order Comment: Reaso n for Exam Hyperlipidemia Performed By: #### L IPID, TSH3, CBC, CMP #### [facility] [address] [place] [address] [place] Platelets (Bld) [#/Vol] 196 10*3/uL Normal 150-450 The [facility] Comment on above: Order Comment: Reaso n for Exam Hyperlipidemia Performed By: #### L IPID, TSH3, CBC, CMP #### [facility] [address] [place] [address] [place] RBC (Bld) [#/Vol] 4.86 10*6/uL Normal 3.60-5.00 The [facility] Comment on above: Order Comment: Reaso n for Exam Hyperlipidemia Performed By: #### L IPID, TSH3, CBC, CMP #### [facility] [address] WBC (Bld) [#/Vol] 5.7 10*3/uL Normal 3.8-11.6 The [facility]placed by [facility] Comment on above: Order Comment: Reaso n for Exam Hyperlipidemia Performed By: #### L IPID, TSH3, CBC, CMP #### [facility] [address] Comprehensive Metabolic Pane [place] 10-30-2022 Albumin [Mass/Vol] 3.6 g/dL Normal 3.5-5.7 The [facility]placed [facility] Comment on above: Order Comment: Reaso n for Exam Hyperlipidemia Performed By: #### T SH3, CMP, LIPID #### [address] Albumin/Globulin [Mass ratio] 1.2 {ratio} Normal The [facility] Comment on above: Order Comment: Reaso n for Exam Hyperlipidemia Performed By: #### T SH3, CMP, LIPID #### [address] ALP [Catalytic activity/Vol] 102 U/L Normal 34-104 The [facility] Comment on above: Order Comment: Reaso n for Exam Hyperlipidemia Performed By: #### T SH3, CMP, LIPID #### [address] ALT [Catalytic activity/Vol] 14 U/L Normal 7-52 The [facility] Comment on above: Order Comment: Reaso n for Exam Hyperlipidemia Performed By: #### T SH3, CMP, LIPID #### [address] Anion gap [Moles/Vol] 9.0 mmol/L Normal 6.0-15.0 The [facility] Comment on above: Order Comment: Reaso n for Exam Hyperlipidemia Performed By: #### T SH3, CMP, LIPID #### [address] AST [Catalytic activity/Vol] 18 U/L Normal 13-39 The [facility] Comment on above: Order Comment: Reaso n for Exam Hyperlipidemia Performed By: #### T SH3, CMP, LIPID #### [facility] [address] Bilirubin [Mass/Vol] 0.5 mg/dL Normal 0.3-1.0 The [facility] Comment on above: Order Comment: Reaso n for Exam Hyperlipidemia Performed By: #### T SH3, CMP, LIPID #### [facility] [address] Calcium [Mass/Vol] 9.0 mg/dL Normal 8.6-10.3 The [facility]placed [facility] Comment on above: Order Comment: Reaso n for Exam Hyperlipidemia Performed By: #### T SH3, CMP, LIPID #### [facility] [address] Chloride [Moles/Vol] 106 mmol/L Normal 98-107 The [facility] Comment on above: Order Comment: Reaso n for Exam Hyperlipidemia Performed By: #### T SH3, CMP, LIPID #### [facility] [address] [place] [address] CO2 [Moles/Vol] 30.8 mmol/L Normal 21.0-31.0 The [facility] Comment on above: Order Comment: Reaso n for Exam Hyperlipidemia Performed By: #### T SH3, CMP, LIPID #### [facility] [address] [place] [address] Creatinine [Mass/Vol] 0.75 mg/dL Normal 0.60-1.20 The [facility] Comment on above: Order Comment: Reaso n for Exam Hyperlipidemia Performed By: #### T SH3, CMP, LIPID #### [facility] [address] [place] [address] [place] GFR/1.73 sq M.predicted MDRD (S/P/Bld) [Vol rate/Area] mL/min/{1.73_m2} Normal The [facility] Comment on above: Order Comment: Reaso n for Exam Hyperlipidemia Performed By: #### T SH3, CMP, LIPID #### [facility] [address] [place] [address] [place] Globulin (S) [Mass/Vol] 2.9 g/dL Normal T [facility] Comment on above: Order Comment: Reaso n for Exam Hyperlipidemia Performed By: #### T SH3, CMP, LIPID #### [address] Glucose [Mass/Vol] 92 mg/dL Normal 70-100 The Replaced by [facility] Comment on above: Order Comment: Reaso n for Exam Hyperlipidemia Result Comment: [facility] Glucose Reference Range is dependent on time and content of last meal. Glucose of more than 200 mg/dL in a nonstressed, ambulatory subject supports the diagnosis of Diabetes Mellitus. ADA recommended reference range Performed By: #### T SH3, CMP, LIPID #### [address] Potassium [Moles/Vol] 4.8 mmol/L Normal 3.5-5.1 The [facility] Comment on above: Order Comment: Reaso n for Exam Hyperlipidemia Performed By: #### T SH3, CMP, LIPID #### [address] Protein [Mass/Vol] 6.5 g/dL Normal 6.4-8.9 The [facility]placed [facility] Comment on above: Order Comment: Reaso n for Exam Hyperlipidemia Performed By: #### T SH3, CMP, LIPID #### [place] [id number] [facility] Sodium [Moles/Vol] 141 mmol/L Normal 136-145 The [facility] Comment on above: Order Comment: Reaso n for Exam Hyperlipidemia Performed By: #### T SH3, CMP, LIPID #### [address] Urea nitrogen [Mass/Vol] 18 mg/dL Normal 7-25 The [facility] Comment on above: Order Comment: Reaso n for Exam Hyperlipidemia Performed By: #### T SH3, CMP, LIPID #### [place] [id number] [facility] Lipid Panelon 10-30-2022 Cholesterol [Mass/Vol] 218 mg/dL High 140-200 Th e [facility] Comment on above: Order Comment: Reaso n for Exam Hyperlipidemia Result Comment: Chol less than 200 mg/dl low risk Chol 201-239 mg/dl borderline risk Chol 240 mg/dl and greater high risk Performed By: #### T SH3, CMP, LIPID #### [facility] [address] [place] [id number] [place] Cholesterol in HDL [Mass/Vol] 51 mg/dL Normal 35-85 The [facility] Comment on above: Order Comment: Reaso n for Exam Hyperlipidemia Result Comment: HDL CHOL ATP-III CLASSIFICATION Cardiovascular Risk HDL > or equal to 60 mg/dL LOW HDL < 40 mg/dL HIGH Performed By: #### T SH3, CMP, LIPID #### [facility] [address] [place] [address] [place] Cholesterol.total/Araceli sterol in HDL [Mass ratio] 4.3 {ratio} Normal <5.0 The [facility] Comment on above: Order Comment: Reaso n for Exam Hyperlipidemia Performed By: #### T SH3, CMP, LIPID #### [facility] [address] [place] [id number] [place] LDL Cholesterol,Calculated 151 mg/dL High 0-100 The [facility] Comment on above: Order Comment: Reaso n for Exam Hyperlipidemia Result Comment: LDL ATP III CLASSIFICATION LDL less than 100 mg/dL Optimal LDL 100-129 mg/dL Near or above optimal LDL 130-159 mg/dL Borderline high LDL 160-189 mg/dL High LDL greater than 189 mg/dL Very high Performed By: #### T SH3, CMP, LIPID #### [facility] [address] [place] [id number] [place] Triglyceride w/Reflex 78 mg/dL Normal 0-149 The [facility] Comment on above: Order Comment: Reaso n for Exam Hyperlipidemia Result Comment: TRIG ATP III CLASSIFICATION TRIG less than 150 mg/dL Normal TRIG 150-199 mg/dL Borderline high TRIG 200-500 mg/dL High TRIG greater than 500 mg/dL Very high Standard traceable to the Center for Disease Conrtrol and Prevention (CDC) test method. Performed By: #### T SH3, CMP, LIPID #### [facility] [address] [place] [address] [place] VLDL CHOLESTEROL 15 mg/dL Normal The [facility] Comment on above: Order Comment: Reaso n for Exam Hyperlipidemia Performed By: #### T SH3, CMP, LIPID #### [facility] [address] [place] [id number] [place] Thyroid Stimulating Hormoneo n 10-30-2022 TSH Qn 1.72 m[IU]/L Normal 0.45-5.33 The [facility] Comment on above: Order Comment: Reaso n for Exam Hyperlipidemia Result Comment: PERF ORMED BY: [facility] [address] [facility] [place] [address] PATHOLOGIST [employer] TELEVISION CONSOLE MONITOR BEV TALBERT M.D. Performed By: #### T SH3, CMP, LIPID #### [facility] [address] [place] [id number] [facility] Albumin [Mass/volume] in Ser um or PlasmaOrdered By: Prem Goel on 04-29-2022 Albumin [Mass/Vol] 3.4 g/dL 3.2-5.5 [facility] Basophils Auto (Bld) [#/Vol] Ordered By: Prem Goel on 04-29-2022 Basophils (Bld) [#/Vol] 0.0 10*3/uL 0.0-0.2 [facility] Basophils/100 WBC Auto (Bld) Ordered By: Prem Goel on 04-29-2022 Basophils/100 WBC (Bld) 0.3 % . [facility] Cholesterol [Mass/volume] in Serum or PlasmaOrdered By: Prem Goel on 04-29-2022 Cholesterol [Mass/Vol] 196 mg/dL 140-[address] [facility] Comment on above: Chol less than [...] Cholesterol in VLDL [Mass/Vol] 10 mg/dL [facility] Creatinine and Glomerular fi ltration rate.predicted panel (S/P/Bld)Ordered By: Prem Goel on 04-29-2022 Creatinine [Mass/Vol] 0.80 mg/dL 0.44-1.03 [facility] Eosinophils Auto (Bld) [#/Vo l]Ordered By: [...] 04-29-2022 Globulin (S) [Mass/Vol] 3.3 g/dL F [facility] Hematocrit Auto (Bld) [Volum e [...] 04-29-2022 WBC (Bld) [#/Vol] 10.7 10*3/uL 4.5-11.0 [facility] Lymphocytes Auto (Bld) [#/Vo l]Ordered By: [...] MCHC (RBC) [Mass/Vol] 32.1 g/dL 32.0-35.0 [facility] MCV Auto (RBC) [Entitic vol] Ordered By: Prem Goel on 04-29-2022 MCV (RBC) [Entitic vol] 93.4 fL 80-100 F [facility] Monocytes Auto (Bld) [#/Vol] Ordered By: Prem Goel on 04-29-2022 Monocytes (Bld) [#/Vol] 1.1 10*3/uL 0.0-0.8 [facility] Monocytes/100 WBC Auto (Bld) Ordered By: Prem Goel on 04-29-2022 Monocytes/100 WBC (Bld) 10.4 % . F [facility] Neutrophils Auto (Bld) [#/Vo l]Ordered [...] on 04-29-2022 Protein [Mass/Vol] 6.7 g/dL 6.1-7.9 [facility] RBC Auto (Bld) [#/Vol]Ordere d By: Prem Goel on 04-29-2022 RBC (Bld) [#/Vol] 4.95 10*6/uL 3.60-5.00 [facility] Serum or plasma alanine tobias otransferase [...] 04-29-2022 Anion gap [Moles/Vol] 10.5 mmol/L 6.0-15.[address] [facility] Serum or plasma aspartate am inotransferase measurement (enzymatic activity/volume)Ordered By: Prem Goel on 04-29-2022 AST [Catalytic activity/Vol] 19 U/L 10-42 [facility] Serum or plasma calcium erica urement (mass/volume)Ordered By: Prem Goel on 04-29-2022 Calcium [Mass/Vol] 9.2 mg/dL 8.2-10.2 [facility] Serum or plasma chloride omaira surement (moles/volume)Ordered By: Prem Goel on 04-29-2022 Chloride [Moles/Vol] 102 mmol/L 95-114 [facility] Serum or plasma glucose erica urement (mass/volume)Ordered By: Prem Goel on 04-29-2022 Glucose [Mass/Vol] 111 mg/dL 70-100 [facility] Comment on above: ADA recommended refe rence [...] 04-29-2022 Potassium [Moles/Vol] 4.0 mmol/L 3.5-5.1 [facility] Serum or plasma sodium measu rement (moles/volume)Ordered By: Prem Goel on 04-29-2022 Sodium [Moles/Vol] 137 mmol/L 136-146 [facility] Serum or plasma total biliru bin measurement (mass/volume)Ordered By: Prem Goel on 04-29-2022 Bilirubin [Mass/Vol] 0.8 mg/dL 0.3-1.2 [facility] Serum or plasma total carbon dioxide measurement (moles/volume)Ordered By: Prem Goel on 04-29-2022 CO2 [Moles/Vol] 28.5 mmol/L 22.0-30.0 [facility] Serum or plasma total choles terol/high density lipoprotein (HDL) cholesterol mass ratOrdered By: Prem Goel on 04-29-2022 Cholesterol.total/Araceli sterol in HDL [Mass ratio] 2.6 {ratio} <5.0 [facility] Serum or plasma urea nitroge n measurement (mass/volume)Ordered By: Prem Goel on 04-29-2022 Urea nitrogen [Mass/Vol] 14 mg/dL 02-28 [facility] TSH DL <= 0.005 mIU/L QnOrde red By: Prem Goel on 04-29-2022 TSH Qn 1.74 m[IU]/L 0.45-5.33 [facility] Triglyceride [Mass/volume] i n Serum or PlasmaOrdered By: Prem Goel on 04-29-2022 Triglyceride [Mass/Vol] 53 mg/dL 35-149 F [facility] Comment on above: TRIG ATP III CLASSIF ICATIONTRIG less than 150 mg/dL NormalTRIG 150-199 mg/dL Borderline highTRIG 200-500 mg/dL High TRIG greater than 500 mg/dL Very highStandard traceable to the Center for Disease Conrtrol and Prevention (CDC) test method. A1C HEMOGLOBINon 04-30-2021 HbA1c (Bld) [Mass fraction] 5.8 % [facility] Other HbA1c (Bld) [Mass fraction]o n 04-30-2021 A1C HEMOGLOBIN [facility] Other [facility] CARDIAC STRESS/REST (DOUGLAS CARDIAL PERFUSION/MIBI)on 04-09-2020 [facility] CARDIAC STRESS/REST (MYOCARDIAL PERFUSION/MIBI) Patient Name: MARY WILKERSON STUDY: MYOCARDIAL PERFUSION STRESS TEST WITH LEXISCAN Performing facility: [facility], [address] [place] [address], [address], [place] [address] [facility] Provider: WP SMYTH PCP: Dr. PREM GOEL Supervising provider: WP SMYTH INDICATION: CP HISTORY: Gender: F; Age: 84 y/o ; Height: 157.48 cm; Weight: 78.1624802 kg. High Cholesterol; CP Family HX CAD; Denies smoking. COMPARISON: Previous nuclear testing completed [id number] at [facility]. ACCESSION NUMBER(S): [id number] ORDERING CLINICIAN: MATT SMYTH TECHNIQUE: ONE DAY [...] Electronically signed by: BRIELLE DUVAL MD Normal [facility] CARDIAC STRESS/REST INJE CTIONon 04-09-2020 [facility] CARDIAC STRESS/REST INJECTION Patient Name: MARY WILKERSON STUDY: MYOCARDIAL PERFUSION STRESS TEST WITH LEXISCAN Performing facility: [facility], [address] [place] [address], [address], [place] [address] [facility] Provider: WP SMYTH PCP: Dr. PREM GOEL Supervising provider: WP SMYTH INDICATION: CP HISTORY: Gender: F; Age: 84 y/o ; Height: 157.48 cm; Weight: 78.6064329 kg. High Cholesterol; CP Family HX CAD; Denies smoking. COMPARISON: Previous nuclear testing completed [id number] at [facility]. ACCESSION NUMBER(S): [id number] ORDERING CLINICIAN: MATT SMYTH TECHNIQUE: ONE DAY [...] Electronically signed by: BRIELLE DUVAL MD Normal [facility] PART 2 STRESS OR REST (N O CHARGE)on 04-09-2020 [facility] PART 2 STRESS OR REST (NO CHARGE) Patient Name: MARY WILKERSON STUDY: MYOCARDIAL PERFUSION STRESS TEST WITH LEXISCAN Performing facility: [facility], [address] [place] [address], [address], [place] [address] [facility] Provider: WP SMYTH PCP: Dr. PREM GOEL Supervising provider: WP SMYTH INDICATION: CP HISTORY: Gender: F; Age: 84 y/o ; Height: 157.48 cm; Weight: 78.3289012 kg. High Cholesterol; CP Family HX CAD; Denies smoking. COMPARISON: Previous nuclear testing completed [id number] at [facility]. ACCESSION NUMBER(S): [id number] ORDERING CLINICIAN: MATT SMYTH TECHNIQUE: ONE DAY [...] Electronically signed by: BRIELLE DUVAL MD Normal [facility] Vital Signs Date Time Vital Sign Value Performing Clinician Facility 09-24-2023 09:41-0400 Body height 154.94 cm DO [employer] Work Phone: [facility] 09-24-2023 09:41-0400 Body mass index (BMI) [Ratio] 30.9 kg/m2 DO [employer] Work Phone: [facility] 09-24-2023 09:41-0400 Body weight 74.38 kg DO Prem Kuns Work Phone: [facility] 09-24-2023 09:41-0400 Diastolic blood pressure 80 mm[Hg] DO Prem Kuns Work Phone: [facility] 09-24-2023 09:41-0400 Heart rate 57 /min DO Prem Kuns Work Phone: [facility] 09-24-2023 09:41-0400 Respiratory rate 16 /min DO Prem Kuns Work Phone: [facility] 09-24-2023 09:41-0400 SaO2% (BldA) [Mass fraction] 92 % DO Prem Kuns Work Phone: [facility] 09-24-2023 09:41-0400 Systolic blood pressure 138 mm[Hg] DO Prem Kuns Work Phone: [facility] 03-17-2023 08:45-0400 Body height 154.94 cm Premsaloni Cabezass Other [facility] Other 03-17-2023 08:45-0400 Body mass index (BMI) [Ratio] 30.98 kg/m2 [facility]oni Cabezass Other [facility] Other 03-17-2023 08:45-0400 Body weight 74.39 kg Premsaloni Cabezass Other [facility] Other 03-17-2023 08:45-0400 Diastolic blood pressure 76 mm[Hg] Prem [employer] Other [facility] Other 03-17-2023 08:45-0400 Respiratory rate 16 /min Prem Michaels Other [facility] Other 03-17-2023 08:45-0400 SaO2% (BldA) [Mass fraction] 96 % Prem Kuns Other [employer] Other 03-17-2023 08:45-0400 Systolic blood pressure 120 mm[Hg] Prem Kuns Other [facility] Other 11-12-2022 14:45-0400 Body height 154.94 cm Prem Kuns Other [facility] Other 11-12-2022 14:45-0400 Body mass index (BMI) [Ratio] 31.36 kg/m2 Prem Kuns Other [facility] Other 11-12-2022 14:45-0400 Body weight 75.3 kg Prem Kuns Other [facility] Other 11-12-2022 14:45-0400 Diastolic blood pressure 68 mm[Hg] Prem Kuns Other [facility] Other 11-12-2022 14:45-0400 Respiratory rate 16 /min Prem Kuns Other [facility] Other 11-12-2022 14:45-0400 SaO2% (BldA) [Mass fraction] 93 % Prem Kuns Other [facility] Other 11-12-2022 14:45-0400 Systolic blood pressure 124 mm[Hg] Prem Kuns Other [facility] Other 01-28-2022 11:15-0400 Body height 154.94 cm Prem Kuns Other [facility] Other 01-28-2022 11:15-0400 Body mass index (BMI) [Ratio] 30.98 kg/m2 Prem Kuns Other [facility] Other 01-28-2022 11:15-0400 Body weight 74.39 kg Prem Kuns Other [facility] Other 01-28-2022 11:15-0400 Diastolic blood pressure 82 mm[Hg] Prem Kuns Other [facility] Other 01-28-2022 11:15-0400 Respiratory rate 18 /min Prem Kuns Other [facility] Other 01-28-2022 11:15-0400 SaO2% (BldA) [Mass fraction] 95 % Prem Kuns Other [facility] Other 01-28-2022 11:15-0400 Systolic blood pressure 142 mm[Hg] Prem Kuns Other [facility] Other 08-15-2021 14:45-0500 Body height 154.94 cm Prem Kuns Other [facility] Other 08-15-2021 14:45-0500 Body mass index (BMI) [Ratio] 30.04 kg/m2 Prem Kuns Other [facility] Other 08-15-2021 14:45-0500 Body weight 72.12 kg Prem Kuns Other [facility] Other 08-15-2021 14:45-0500 Diastolic blood pressure 80 mm[Hg] Prem Kuns Other [facility] Other 08-15-2021 14:45-0500 Respiratory rate 16 /min Prem Kuns Other [facility] Other 08-15-2021 14:45-0500 SaO2% (BldA) [Mass fraction] 99 % Prem Kuns Other [facility] Other 08-15-2021 14:45-0500 Systolic blood pressure 142 mm[Hg] Prem Kuns Other [facility] Other 04-30-2021 11:45-0500 Body height 154.94 cm Prem Kuns Other [facility] Other 04-30-2021 11:45-0500 Body mass index (BMI) [Ratio] 29.74 kg/m2 Prem Kuns Other [facility] Other 04-30-2021 11:45-0500 Body weight 71.4 kg Prem Kuns Other [facility] Other 04-30-2021 11:45-0500 Diastolic blood pressure 87 mm[Hg] Prem Kuns Other [facility] Other 04-30-2021 11:45-0500 Respiratory rate 18 /min Prem Kuns Other [facility] Other 04-30-2021 11:45-0500 SaO2% (BldA) [Mass fraction] 93 % Prem Kuns Other [facility] Other 04-30-2021 11:45-0500 Systolic blood pressure 136 mm[Hg] Prem Kuns Other [facility] Other 02-28-2021 11:15-0400 Body height 154.94 cm Prem Michaels Other [facility] Other 02-28-2021 11:15-0400 Body mass index (BMI) [Ratio] 29.85 kg/m2 Prem Kuns Other [facility] Other 02-28-2021 11:15-0400 Body weight 71.67 kg Prem Kuns Other [facility] Other 02-28-2021 11:15-0400 Diastolic blood pressure 86 mm[Hg] Prem Kuns Other [facility] Other 02-28-2021 11:15-0400 Respiratory rate 16 /min Prem Kuns Other [facility] Other 02-28-2021 11:15-0400 SaO2% (BldA) [Mass fraction] 97 % Prem Michaels Other [facility] Other 02-28-2021 11:15-0400 Systolic blood pressure 134 mm[Hg] Prem Kuns Other [facility] Other Encounters Encounter Date Encounter Type Care Provider Facility Start: 09-24-2023 End: 09-24-2023 ambulatory DO Prem Kuns Work Phone: [facility] Work Phone: Start: 09-24-2023 End: 09-24-2023 Patient encounter procedure DO Prem Kuns Work Phone: [facility] [place] Work Phone: Start: 09-18-2023 End: 09-18-2023 ambulatory Prem Kuns Facility:[facility] Start: 09-18-2023 End: 09-18-2023 ambulatory DO Prem Kuns Work Phone: [facility] Work Phone: Start: 09-18-2023 End: 09-18-2023 Patient encounter procedure DO Prem Kuns Work Phone: [facility] [place] Work Phone: Start: 08-11-2023 Non-patient / Non-visit DO Prem Kuns Work Phone: [facility] Work Phone: Start: 08-07-2023 Non-patient / Non-visit DO Prem Kuns Work Phone: [facility] Work Phone: Start: 08-03-2023 Non-patient / Non-visit DO Prem Kuns Work Phone: [facility] Work Phone: Start: 05-27-2023 End: 05-27-2023 ambulatory Prem Kuns Other [place] [employer] Other Start: 05-27-2023 Telephone encounter Prem Kuns [facility] Start: 03-17-2023 End: 03-17-2023 ambulatory Prem Kuns Other [place] [employer] Other Start: 03-17-2023 Office outpatient visit 25 minutes Prem Kuns [facility] Start: 03-12-2023 End: 03-12-2023 ambulatory Prem Kuns Facility:[facility] Start: 03-12-2023 End: 03-12-2023 ambulatory DO Prem Kuns Work Phone: [facility] Work Phone: Start: 03-12-2023 End: 03-12-2023 Patient encounter procedure DO Prem Goel Work Phone: [facility] [place] Work Phone: Start: 01-30-2023 End: 01-30-2023 ambulatory Prem Goel Other [facility] Other Start: 01-30-2023 Telephone encounter Prem Goel [facility] Start: 11-12-2022 End: 11-12-2022 ambulatory Prem Goel Other [facility] Other Start: 11-12-2022 Office outpatient visit 25 minutes Prem Goel [facility] Start: 11-04-2022 End: 11-04-[address] PREM GOEL Facility:[facility] Start: 11-04-2022 Telephone encounter Prem Goel [facility] Start: 10-30-2022 End: 10-30-2022 ambulatory Prem Goel Facility:[facility] Start: 10-14-2022 End: 10-14-[address] PREM GOEL Facility:[facility] Start: 10-02-2022 End: 10-03-2022 ambulatory DONELL MICHELMIPATHY . Facility:[facility] Start: 09-09-2022 End: 09-09-[address] PREM GOEL Facility:[facility] Start: 09-04-2022 End: 09-05-[address] PREM GOEL Facility:[facility] Start: 08-19-2022 End: 08-19-[address] BILL RAMOS Facility:[facility] Start: 07-22-2022 End: 07-23-[address] PREM GOEL Facility:[facility] Start: 05-08-2022 End: 05-09-2022 ambulatory AIXA GARCIA . Facility:[facility] Start: 05-06-2022 Annual wellness visit Prem arevalo Other [facility] Other Start: 04-29-2022 End: 04-29-2022 ambulatory DO Prem Michaels Work Phone: [facility] Work Phone: Start: 04-29-2022 End: 04-29-2022 Patient encounter procedure DO Prem Kuns Work Phone: [facility] [place] Start: 03-06-2022 End: 03-07-[address] KHOA RAMOS . Facility:[facility] Start: 02-27-2022 End: 02-27-2022 ambulatory Prem Michaels Other [facility] Other Start: 02-27-2022 Telephone encounter Prem Michaels [facility] Start: 02-18-2022 End: 02-18-[address] KHOA RAMOS . Facility: Start: 01-28-2022 End: 01-28-2022 ambulatory Prem Michaels Other [facility] Other Start: 01-28-2022 Office outpatient visit 15 minutes Prem Michaels [facility] Start: 01-21-2022 End: 01-22-[address] KHOA RAMOS . Facility: Start: 12-02-2021 End: 12-02-2021 ambulatory Prem Kuns Other [facility] Other Start: 12-02-2021 Telephone encounter Prem Kuns [facility] Start: 11-28-2021 End: 11-28-2021 ambulatory Prem Kuns Other [facility] Other Start: 11-28-2021 Telephone encounter Prem Kuns [facility] Start: 10-02-2021 End: 10-02-2021 ambulatory Prem Kuns Other [facility] Other Start: 10-02-2021 Telephone encounter Prem Kuns [facility] Start: 09-10-2021 End: 09-10-2021 ambulatory Prem Kuns Other [facility] Other Start: 09-10-2021 Telephone encounter Prem Kuns [facility] Start: 08-15-2021 End: 08-15-2021 ambulatory Prem Kuns Other [facility] Other Start: 08-15-2021 Office outpatient visit 25 minutes Prem Kuns [facility] [place] Start: 08-12-2021 End: 08-12-2021 ambulatory Prem Kuns Other [facility] Other Start: 08-12-2021 Telephone encounter Prem Kuns [facility] Start: 06-13-2021 End: 06-13-2021 ambulatory Prem Kuns Other [facility] Other Start: 06-13-2021 Telephone encounter Prem Kuns [facility] [place] Start: 04-30-2021 End: 04-30-2021 ambulatory Prem Kuns Other [facility] Other Start: 04-30-2021 Office outpatient visit 25 minutes Prem Kuns [facility] [place] Start: 02-28-2021 End: 02-28-2021 ambulatory Prem Kuns Other [facility] Other Start: 02-28-2021 Patient encounter procedure Prem Kuns [facility] Start: 08-18-2019 Annual wellness visit Prem arevalo Other [facility] Other Plan of Treatment Date Care Activity Detail Author Glucose measurement estimated from glycated hemoglobin [facility] enter Glucose measurement estimated from glycated hemoglobin [facility] enter [facility] Immunizations Immunization Date Immunization Notes Care Provider Fa jon 06-13-2021 COVID-19 Vaccine Pfizer - Documentation Purposes Only Prem Kuns Other [facility] 07-19-2020 COVID-19 Vaccine Pfizer - Documentation Purposes Only Prem Kuns Other [facility] 06-29-2020 COVID-19 Vaccine Pfizer - Documentation Purposes Only Prem Kuns Other [facility] NEGATED: Highlighted row has not occurred!05-06-2022 influenza, seasonal, injectable Patient Objection Prem Kuns Other [facility] [employer] Other NEGATED: Highlighted row has not occurred!05-06-2022 Prevnar 20 Patient Objection Prem Kuns Other [facility] NEGATED: Highlighted row has not occurred!02-17-2019 influenza, seasonal, injectable Patient Objection Prem Kuns Other [facility] [employer] Other NEGATED: Highlighted row has not occurred!04-07-2017 influenza, seasonal, injectable Patient Objection Prem Kuns Other [facility] Other Payers Date Payer Category Payer Self-pay [id number] Private Health Insurance [id number] 1937 Unknown [id number] 1937 Unknown [id number] [id number] 1937 Unknown [id number] [id number] 1937 Unknown [id number] [id number] 1937 Unknown [id number] [id number] 1937 Unknown [id number] [id number] 1937 Unknown [id number] 2.16.840.1.227165.3.579.2.593 1937 Unknown [id number] 2.16.840.1.111765.3.579.2.593 1937 Unknown [id number] [id number] 1937 Unknown [id number] [id number] 1935 Unknown [id number] [id number] Medicare Medicare [id number] Unknown [facility] Health Claims [id number] 12 [id number] Unknown [id number] [id number] Unknown [id number] 2.840.1.525404.3.579.2.531 Unknown [id number] [id number] Social History Date Type Detail Facility Unknown if ever smoked [facility] Other Sex Assigned At Sex Assigned At Bir th [facility] Other Start: 03-28-2020 End: 07-02-2023 Tobacco smoking status NHIS Never smoked tobacco (finding) [facility] Start: 1935 Sex Assigned At Female F [facility] Clinical Notes 12-21-2007 to 03-17-2023 [...] exercise regimen; we will continue to monitor. [facility] Other 08-25-2023 Evaluation note* Encounter Date Diagnosis Assessment Notes Treatment Notes Treatment Clinical Notes Jan, Hyperlipidemia (ICD-10 - E78.5) [facility] Other 06-07-2023 Evaluation note* Encounter Date Diagnosis Assessment Notes Treatment Notes Treatment Clinical Notes Nov, Bronchopneumonia (ICD-10 - J18.0) [facility] ER records reviewed from both 11/06 [...] (ICD-10 - R59.0) Noted on imaging from [facility]. I do believe this is likely due to her being ill. She has never smoked. Discussed these findings with the and the patient if symptoms persist we may have pulmonary evaluation but at this time patient appears to be improving [facility] Other 04-27-2023 NoteCONSULTATION CONSULTATION DATE: 10/02/2022 TO: [...] our patients to inform us about any pwfe-nhl-cnmbkxd medications or herbal remedies/nutritional supplements/alternative remedies. 2. [...] treatment options with their primary care provider.[id number] Note CONSULTATION CONSULTATION DATE: 09/04/2022 TO: Dr. [...] mg pills, 1-2 at h.s. as tolerated.[facility] [id number] NoteCONSULTATION CONSULTATION DATE: 07/22/2022 CHIEF COMPLAINT: Right [...] her understand and would like to proceed,.[facility] 05-08-2022 NoteCONSULTATION CONSULTATION DATE: 05/08/2022 HISTORY [...] in three months' time unless otherwise indicated.[facility] [id number] NoteCONSULTATION CONSULTATION DATE: 03/06/2022 This is a [...] of care and all questions were answered.[facility] [id number] Evaluation note* Encounter Date Diagnosis Assessment Notes Treatment Notes Treatment Clinical Notes Feb, Hyperlipidemia (ICD-10 - E78.5) [facility] Other 08-23-2022 Evaluation note* Encounter Date Diagnosis [...] E78.5) Jan, Hyperglycemia (ICD-1 0 - R73.9) [facility] Other 08-16-2022 NoteCONSULTATION CONSULTATION DATE: 01/21/2022 CHIEF [...] and her understand. CC: Dr. Raphael Escamilla D.O.[facility]05-20-2022 NotePROCEDURE: [employer] Signa HDXT 1.5 Sagittal T1, T2, STIR [...] and signed by Ralph Figueroa on 10/25/2021 1510[facility]03-10-2022 Evaluation note* Encounter Date Diagnosis Assessment [...] we will attempt to order an MRI. [facility] Other 01-06-2022 Evaluation note* Encounter Date Diagnosis Assessment Notes Treatment Notes Treatment Clinical Notes Jun, Hyperlipidemia (ICD-10 - E78.5) [facility] Other 11-23-2021 Evaluation note* Encounter Date Diagnosis [...] work-up i.e. CAT scan of her abdomen. [facility] Other 09-23-2021 Evaluation note* Encounter Date Diagnosis [...] monitor, a blood work order was provided. [facility] Other 07-15-2008 History general Narrative - Reported* Type Description Date Medical History Colonoscopy 12-21-07 Medical History Stress Test 01-18-[address] Scan Abdomen and Pelvis 06-07 Medical History Mammogram 2-11 Medical History Pap 1-10 Medical History 02/2013 [facility] Medical History 10/13/13-mammogram at [facility] Medical History 12/2015 mammogram Medical History 12/2016 Mammogram Medical History 07/2019 Mammogram Medical History Cardiolite 04/09/20 Surgical History wisdom teeth Hospitalization History child [facility] Other [id number] History general Narrative - Reported* Type Description Date Medical History Colonoscopy 12-21-07 Medical History Stress Test 01-18-[address] Scan Abdomen and Pelvis 06-07 Medical History Mammogram 2-11 Medical History Pap 1-10 Medical History 02/2013 [facility] Medical History 10/13/13-mammogram at [facility] Medical History 12/2015 mammogram Medical History 12/2016 Mammogram Medical History 07/2019 Mammogram Medical History Cardiolite 04/09/20 Medical History hearing aids Surgical History wisdom teeth Hospitalization History child [facility] Other Evaluation noteNo [employer] Other Evaluation noteNo assessment information available [facility] Work Phone: Evaluation note* Diagnosis Onset Date Resolution Status Degenerative disc disease, lumbar acute Encounter for subsequent alphonse ual wellness visit (AWV) in Medicare patient acute Fall acute Hyperlipidemia acute Lower extremity edema acute Prediabetes acute Screening mammogram for breast cancer acute Urinary incontinence acute [facility] Work Phone: Summary Purpose Family History Relationship Condition Age at Onset Recorded Date/T adry father Unknown grandparent Unknown Not Specified Unknown Advance Directives Advance Directive Response Recorded Date/ Time Advance Directives No April 15, 2017 7:45pm Advance Directive Response Recorded Date/ Time Advance Directives No April 15, 2017 8:45pm Advance Directive Response Recorded Date/ Time Advance Directives No July 02, 2023 5:34pm Chief Complaint and Reason for Visit Chief Complaint See order Chief Complaint E78.5 R73.9 Chief Complaint Amb Documentation Amb Documentation E78.5 R73.9 Chief Complaint Amb Documentation Amb Documentation E78.5 R73.9 MEDICARE WELLNESS sub Reason for Visit Degenerative disc di sease, lumbar Encounter for subsequent annual wellness visit (AWV) in Medicare patient Fall Hyperlipidemia Lower extremity edema Prediabetes Screening mammogram for breast cancer Urinary incontinence Additional Source Comments INFORMATION SOURCE (unrecogn ized section and content) DATE CREATED AUTHOR 04/11/2020 [place] [facility] DATE CREATED AUTHOR AUTHOR'S ORGANIZ ATION 10/27/2021 [facility] DATE CREATED AUTHOR AUTHOR'S ORGANIZ ATION 10/17/2022 [facility] DATE CREATED AUTHOR AUTHOR'S ORGANIZ ATION 09/19/2023 [facility] REASON FOR VISIT (unrecogniz ed section and content) refillMEDICARE WELLNESS SUBR efillsreview labs- hyperlipidemia managementRefillship/leg painhip and leg painClinicalRefill3 month Follow up right hp /legRefillsClinicalER FOLLOW UP ELAINA BRONCHITISRefills4 month Follow upRefills Care Teams (unrecognized sec tion and content) Team Status: Active Member Role Status Ruiz oGel DO Primary Care Provider Active Team Status: [...] Primary Care Provider, Attending Provi alexey Active Team Status: Inactive Member Role Status Dates Prem Goel DO Primary Care Provide r, Attending Provider Active Start: September 24, 2023 End: September 24, 2023 Goals (unrecognized section and content) Goals may [...] BE BASED ON THE PRIMARY CLINICAL RECORDS. [facility] [employer] [facility]. provides no warranty or guarantee of the accuracy or completeness of information in this document.
== END 2023-09-25 07:37 | disposition home or self-care (01) ==
LOC: MRI 07:36
PROVIDERS: PCP Family Medicine; Visit Provider Anesthesiology Pain Medicine
DX: M54.16 Radiculopathy, lumbar region (principal)
CPT/HCPCS: 72148

== ENCOUNTER 2023-10-06 11:30 | Outpatient (OUT) | payer MEDICARE, SELFPAY ==
--- NOTE | 2023-10-06 | CONS_ITS ---
CONSULTATION DATE: 10/06/2023 TO: Ignacio Ennis D.O. CHIEF COMPLAINT: Includes right buttock pain, right leg pain. HISTORY: She reports her pain being 7/10, sharp in character with a deep aching component, increased with activities such as standing, walking and performing transitioning maneuvers. Denies any change in bowel and bladder habits or new sensorimotor changes in the lower extremities. CURRENT MEDICATION: Includes diclofenac 75 mg b.i.d., Tylenol 500 mg t.i.d. p.r.n. (does not take daily), and her NABILA on today?s visit was 24. EXAM: Notable for patient having hypoesthesia along the right L4 dermatome, weakness of the right quadriceps, and anterior tibialis at 3/5 strength, and depressed right patella reflex with a straight leg raise positive at approximately 90 degrees. 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 RECOMMENDATIONS: I recommend proceeding with an L4-5 epidural steroid injection under fluoroscopic guidance. I have asked her to initiate therapeutic Zonegran 25 mg at h.s. Lastly, I have asked her if she would consider a consultation with a neurosurgeon. They will discuss this and contact your office, if they wish to proceed. As part of providing excellent, safe, comprehensive care, the following was completed at our patient's visit: 1. A medication reconciliation and review to ensure accurate knowledge of current/active medications, including asking our patients to inform us about any yeqc-yen-kdoinyv medications or herbal remedies/nutritional supplements/alternative remedies. 2. A review to specifically ensure our patients have had annual screening for: elevated body mass index (BMI, see intake chart for exact total), tobacco use, screening for depression, and screening for unhealthy alcohol use. When screening is concerning, patients are provided with education and the specific recommendation to discuss the concerning health issue and treatment options with their primary care provider. SAMIR
== END 2023-10-06 11:31 | disposition home or self-care (01) ==
LOC: PM 11:30
PROVIDERS: PCP Family Medicine; Visit Provider Anesthesiology Pain Medicine
DX: M48.062 Spinal stenosis, lumbar region with neurogenic claudication (principal); M54.16 Radiculopathy, lumbar region
CPT/HCPCS: G0463

== ENCOUNTER 2023-10-19 12:55 | Outpatient (RCR) | payer MEDICARE, SELFPAY | END 2023-11-07 16:32 | disposition home or self-care (01) | LOC: PT 12:55 | PROVIDERS: PCP Family Medicine; Visit Provider Anesthesiology Pain Medicine | DX: M54.16 Radiculopathy, lumbar region (principal); R26.9 Unspecified abnormalities of gait and mobility; R26.89 Other abnormalities of gait and mobility; R29.3 Abnormal posture | CPT/HCPCS: 97110; 97162 ==

== ENCOUNTER 2023-10-27 09:28 | Day surgery (SDC) | payer MEDICARE, SELFPAY ==
[2023-10-27 10:05] VITALS: BP 141/84; PULSE 74; TEMP 36; O2SAT 93
[2023-10-27 11:06] VITALS: BP 144/101; PULSE 66; O2SAT 95
[2023-10-27] MEDS: LIDOCAINE HCL 2% PF 100 MG/5 ML VIAL 4 ML INJ (11:12)
[2023-10-27] MEDS: IOHEXOL 240 MG/ML - 10 ML VIAL 24 MG INJ (11:12)
[2023-10-27] MEDS: 0.9 % SODIUM CHLORIDE 10 ML SYRINGE - SALINE FLUSH 2 ML INJ (11:12)
[2023-10-27] MEDS: BUPIVACAINE HCL 0.25% PF 25 MG/10 ML VIAL 2 ML INJ (11:13)
[2023-10-27] MEDS: METHYLPREDNISOLONE ACETATE 80 MG/ML VIAL INJ (11:13)
[2023-10-27 11:14] VITALS: BP 147/70; PULSE 67; O2SAT 97
--- NOTE | 2023-10-27 11:22 | P.ON_ITS ---
Date of procedure: 10/27/23 Pre-op diagnosis: Lumbar radiculoathy Post-op diagnosis: same as pre-op Procedure: Lumbar 4/5 Epidural Steroid Injection Under fluoroscopic guidance Immediate complications none Solution used for injection: Marcaine 0.25% 2mL, 2cc Normal saline, Depo-Medrol 80mg Omnipaque 3 mL Anesthesia local 2% lidocaine up to 4ml Timeout process compliant After informed consent obtained. Patient brought to the procedure room placed in the prone position. Skin overlying the area was prepped and draped in a sterile fashion using betadine. 25 gauge needle used to raise a skin wheel with local anesthetic over the target area identified under fluoroscopy. A 17 gauge Touhy needle Was inserted over the anesthetized area and directed towards the inter- space under fluoroscopic guidance. Epidural space was identified with loss of resistance technique to air. Needle Tip placement confirmed with injection of contrast solution. Steroid solution was then injected. Anesthesia: Local Surgeon: Nilam Garza Condition: stable
== END 2023-10-27 11:16 | disposition home or self-care (01) ==
LOC: SURGOUT 09:29
PROVIDERS: PCP Family Medicine; Visit Provider Anesthesiology Pain Medicine
DX: M54.16 Radiculopathy, lumbar region (principal)
CPT/HCPCS: 62323; J1010; Q9966

== ENCOUNTER 2023-11-11 09:47 | Outpatient (OUT) | payer MEDICARE, SELFPAY ==
--- OUTSIDE RECORDS SUMMARY | 2023-11-11 10:08 | XMS_ITS | CCD ---
Author Organization [facility] Care Team Providers Care Publishing Director Name Role Phone Prem Goel Unavailable DO Prem Goel Primary Care Provider [phone] DO Prem Goel Attending Provider LAKSHMIPATHY ., NARENDRANATH Admitting Eda vailable RAYMON, DR AMARO Primary Care Unavailable LAKSHMIPATHY ., NARFRANCISCAATH Attending Eda vailable LAKSHMIPATHY ., NARENDRANATH Consulting Eda vailable HALKER ., TAMEKA Consulting Unavailable RAYMON, DR AMARO Primary Care Unavailable LAKSHMIPATHY ., NARFRANCISCAATH Attending Eda vailable LAKSHMIPATHY ., DONELL Consulting Eda vailable LAKSHMIPATHY ., ERISATH Admitting Eda vailable RAYMON, DR AMARO Primary Care Unavailable LAKSHMIPATHY ., NARFRANCISCAATH Attending Eda vailable LAKSHMIPATHY ., NARENDBASSAMATH Consulting Eda vailable LAKSHMIPATHY ., NARENDRANATH Admitting Eda vailable RAYMON, DR AMARO Primary Care Unavailable LAKSHMIPATHY ., NARENDRANATH Admitting Eda vailable LAKSHMIPATHY ., DONELL Attending Eda vailable DR BILL RAMOS Admitting Unavailable RAYMON, DR AMARO Primary Care [...] Unavailable KUNS, DR AMARO Primary Care Unavailable GARCIA .AIXA [...] ., NARENDBASSAMATH Admitting Eda vailable LAKSHMIPATHY ., ERISATH Attending Eda vailable LAKSHMIPATHY ., NARBRENDA Consulting Eda vailable Kuns, DO Prem Primary Care Provider Kuns, DO Prem Attending Provider Kuns, DO Prem Primary Care Provider Kuns, DO Prem Attending Provider Kuns, Prem Attending Unavailable Kuns, Prem Primary Care Unavailable Kuns, Prem Admitting Unavailable Kuns, Prem Attending Unavailable Kuns, Prem Primary Care Unavailable Kuns, Prem Admitting Unavailable Kuns, Prem Attending Unavailable Kuns, Prem Primary Care Unavailable Kuns, Prem Admitting Unavailable Kuns, Prem Attending Unavailable Kuns, Prem Primary Care Unavailable Kuns, Prem Admitting Unavailable Medications Current [...] sodium 75 mg delayed release oral tablet (3 sources) Nonsteroidal Anti-inflammatory Drug Start: 09-24-19 take 75 mg by mouth twice daily Diclofenac Sodium Active 75 MG PO Twice daily September 24, 2023 12:00am hydroCHLOROthiazide 25 mg / triamterene 37.5 mg oral capsule (3 sources) Potassium-sparing Diuretic, Thiazide Diuretic Start: 09-24-19 24 [...] Germ (Azo Bladder Control) 300 mg capsule (3 sources) Start: 09-24-19 24 Pumpkin Seed Extract-Soy Germ (Azo Bladder Control) 300 mg capsule Active CAP PO September 24, 2023 12:00am Triamcinolone (13 sources) Corticosteroid Start: 11-21-19 21 Kenalog -40 mg Nov, 1 cc Completed/Discontinued Medications Medication Drug Class(es) Dates Sig (Normalized) Sig (Original) 8 hr acetaminophen 650 mg extended release oral tablet (18 sources) Start: 09-24-2023 take 2 tablets by mouth every six hours Acetaminophen (Tylenol Extra Strength) [...] ( ) take 2 tablets by mo uth every eight hours Acetaminophen ER 650 MG 2 tablets as needed Orally every 8 hrs Active take 2 tablets by mo uth every eight hours as needed Acetaminophen ER 650 MG 2 tablets as needed Orally every 8 hrs Active [id number] 200 actuat albuterol 0.09 mg/actuat metered dose inhaler (7 sources) beta2-Adrenergic Agonist Start: 09-24-2023 End: 09-24-2023 [...] aspirin 81 mg delayed release oral tablet (6 sources) Platelet Aggregation Inhibitor, Nonsteroidal Anti-inflammatory Drug Start: 03-27-2020 End: 09-24-2023 take 81 mg by mouth once daily Aspirin Discontinued 81 MG PO Daily March 27, 2020 12:00am September 24, 2023 9:22am atorvastatin 10 mg oral tablet (18 sources) HMG-CoA Reductase Inhibitor Start: 10-26-2017 End: 08-03-2023 take 1 tablet by mouth once daily Atorvastatin (Lipitor) 10 mg Tablet Discontinued 10 MG PO Daily March 27, 2020 12:00am August 03, 2023 5:27pm ezetimibe 10 mg oral tablet (20 sources) Dietary Cholesterol Absorption Inhibitor Start: 08-03-2023 [...] Orally Once a day Feb, Active Vit No.543-Ejut-Ion ic (Classic ) 28 mg iron- 800 mcg tablet (3 sources) Start: 09-24-2023 End: 09-24-2023 Vit No.900-Pqsj-Xzb ic (Classic ) 28 mg iron- 800 mcg tablet Discontinued TAB FEEDTUBE .dly September 24, 2023 12:00am September 24, 2023 9:22am Problems Active Problems Problem Classification Problem Date Documented Date Episodic/Chronic Chronic obstructive pulmonary disease and bronchiectasis (4 sources) Bronchitis; Translations: [Bronchitis, not specified as acute or chronic] Episodic Diabetes mellitus without complication (18 sources) Hyperglycemia, unspecified; Translations: [Hyperglycemia] Onset: 04-30-2021 Resolved: 01-28-2022 Episodic Diseases of white blood cells (17 sources) Lymphocytosis; Translations: [Lymphocytosis (symptomatic)] Onset: 02-28-2021 Resolved: 02-28-2021 Chronic Disorders of lipid metabolism (20 sources) Hyperlipidemia; Translations: [Hyperlipidemia, unspecified] Onset: 02-28-2021 Resolved: 01-28-2022 Chronic E Codes: Fall (6 sources) Fall; Translations: [Unspecified fall, initial encounter] 09-24-2023 Episodic Esophageal disorders (16 sources) Gastroesophageal reflux disease; Translations: [Gastro-esophageal reflux disease without esophagitis] Chronic Genitourinary symptoms and ill-defined conditions (6 sources) Urinary incontinence; Translations: [Unspecified urinary incontinence] [...] conditions (not mental disorders or infectious disease) (20 sources) Mammography abnormal; Translations: [Other abnormal and inconclusive findings on diagnostic imaging of breast] 09-24-2023 Episodic Pneumonia (except that caused by tuberculosis or sexually transmitted disease) (1 source) Bronchopneumonia, unspecified organism Episodic Residual codes; unclassified (16 sources) Insomnia; Translations: [Insomnia, unspecified] Episodic Residual codes; unclassified (3 sources) Edema of lower extremity; Translations: [Localized edema] 09-24-2023 Episodic Residual codes; unclassified (4 sources) Localized edema; Translations: [Edema] Onset: 10-06-2023 09-24-2023 Episodic Spondylosis; intervertebral disc disorders; other [...] Test Name Value Interpretation Reference Range Facility [facility] echo transthoracicon [facility] echo transthoracic [facility] [place] [address] Echocardiogram Signed Patient: Mary Wilkerson MR#: [id number] 119 : 1935 Acct:[id number] Age/Sex: 87 / F ADM Date: 10/06/23 Loc: Room: Type: [facility] Attending Dr: Prem Goel DO Ordering Provider: Prem Goel DO Date of Service: 10/06/23 [facility] echo transthoracic: R60.0 - Localized edema Copies to: DO Bruce Solares MD, [facility] BSA: 1.7 m2 BP: 147/85 mmHg HR: 52 Reason For Study: R60.0 - Localized edema History: COVID Interpretation Summary Mild concentric left ventricular hypertrophy. The LV ejection fraction is 55 %. A variety of Doppler measurements indicate impaired left ventricular relaxation, which is associated with grade I/IV or mild diastolic dysfunction. There is trace mitral regurgitation. There is trace tricuspid regurgitation. The right ventricular systolic pressure is 39 mmHg. Right ventricular systolic pressure is consistent with mild pulmonary hypertension. Compared to the prior echo report on 03/28/2020, there is no significant change. Procedure/Quality: A two-dimensional transthoracic echocardiogram with color flow and Doppler was performed. The study was technically good in quality. Compared to the prior echo report on 03/28/2020, there is no significant change. Left Ventricle: Mild concentric left ventricular hypertrophy. Left ventricular systolic function is normal. The LV ejection fraction is 55 %. A variety of Doppler measurements indicate impaired left ventricular relaxation, which is associated with grade I/IV or mild diastolic dysfunction. Left Atrium: The left atrium appears normal in size. The atrial septum appears normal. Right Atrium: The right atrium appears normal in size. Right Ventricle: The right ventricular size, thickness and function are normal. Aortic Valve: The aortic valve is trileaflet. The aortic valve is mildly sclerotic. Mitral Valve: There is mild to moderate mitral annular calcification. The mitral valve is mildly sclerotic. There is trace mitral regurgitation. Tricuspid Valve: The tricuspid valve is normal in structure. There is trace tricuspid regurgitation. The right ventricular systolic pressure is 39 mmHg. Right ventricular systolic pressure is consistent with mild pulmonary hypertension. Pulmonic Valve: The pulmonic valve is not well seen, but is grossly normal. Arteries: The aortic root is normal size. Pericardium/Pleura: No pericardial effusion seen. There is no pleural effusion. IVC/Hepatic Veins: The IVC is normal in size with an inspiratory collapse of greater then 50%, suggesting normal right atrial pressure. Miscellaneous: No thrombus, vegetation or mass is seen. Incidental finding of a simple cyst in the liver measuring 4.6 x 5.8 cm. Measurements with Normals IVSd: 1.3 cm (0.7-1.1 cm)LVIDd: 4.5 cm (3.7-5.4 cm) LVPWd: 1.2 cm (0.7-1.1 cm)LVIDs: 3.1 cm (2.3-3.6 cm) LA dimension: 3.4 cm (2.3-4.0 cm)Ao root diam: 2.9 cm(2.0-3.6 cm) asc Aorta Diam: 3.6 cm(2.1-3.4cm) Doppler with Normals RVSP(TR): 38.8 mmHg (18-35mmHg) LV V1 max: 78.8 cm/sec (0.7-1.7m/s)MV E max moe: 49.3 cm/sec(0.8-1.3m/s) MV A max moe: 86.1 cm/sec(0.0-0.0m/s) MV E/A: 0.57 (<1.5) MMode/2D Measurements Calculations RVDd: 3.3 cm FS: 32.4 % Ao root area: LVOT diam: 2.0 cm TAPSE: 2.0 cm EDV(Teich): 6.8 cm2 LVOT area: 3.0 cm2 RV S Moe: 93.8 ml 18.8 cm/sec ESV(Teich): 36.8 ml EF(Teich): 60.8 % __ LVLd ap4: 7.1 cm SV(MOD-sp4): LAV(MOD-sp4): LA A2 area: 14.8 cm2 EDV(MOD-sp4): 50.5 ml 38.8 ml 78.8 ml LAV(MOD-sp2): LA A4 area: 14.9 cm2 LVLs ap4: 5.7 cm 35.3 ml LA length (vol): ESV(MOD-sp4): 4.5 cm 28.3 ml LA vol: 41.3 ml EF(MOD-sp4): 64.1 % LA vol index: 24.0 ml/m2 Doppler Measurements Calculations MV dec time: MV max PG: E/E' lat: 7.4 MV dec slope: 0.23 sec 33.0 mmHg E/E' med: 8.0 214.5 cm/sec2 __ Ao V2 max: LV V1 max PG: MR max moe: TV max P.0 mmHg 149.3 cm/sec 2.5 mmHg 287.8 cm/sec Ao max P.9 mmHgLV V1 mean PG: MR max PG: Ao mean P.5 mmHg 34.1 mmHg 4.0 mmHg LV V1 mean: Ao V2 mean: 59.0 cm/sec 91.7 cm/sec LV V1 VTI: 18.4 cm Ao V2 VTI: 26.4 cm MARYBEL(I,D): 2.1 cm2 MARYBEL(V,D): 1.6 cm2 __ TR max moe: 290.5 cm/sec TR max P.8 mmHg RAP systole: 5.0 mmHg Transcribed By: SCV Performed At: 10/06/23 0852 Signed By: Bruce Caballero MD, [facility] 10/06/23 1757 Normal [facility] A1C with Estimated Average Carlos banegas 09-18-2023 Glucose [Mass/Vol] 117 mg/dL Normal [facility] Comment on above: Order Comment: Reaso n for Exam Hyperglycemia Result Comment: PERF ORMED BY: [place] [address] PATHOLOGIST WEB DEVELOPMENT DIRECTOR BEV TALBERT M.D. Performed By: #### L IPID, TSH3, CBC, CMP #### [facility] [address] HbA1c (Bld) [Mass fraction] 5.7 % High 4.3-5.6 [facility] Comment on above: Order Comment: Reaso n for Exam Hyperglycemia Result Comment: Incr eased risk for diabetes: 5.7 - 6.4 diabetes: >6.4 glycemic control for adults with diabetes: <7.0 Performed By: #### L IPID, TSH3, CBC, CMP #### [facility] [address] Alanine aminotransferase [En zymatic activity/volume] in Serum or PlasmaOrdered By: Prem Goel on 09-18-2023 ALT [Catalytic activity/Vol] 15 U/L 7-52 [facility] Albumin [Mass/volume] in Ser um or Plasma by Bromocresol green (BCG) dye binding methoOrdered By: Prem Goel on 09-18-2023 Albumin BCG dye [Mass/Vol] 4.0 g/dL 3.5-5.7 [facility] Alkaline phosphatase [Enzyma tic activity/volume] in Serum or PlasmaOrdered By: Prem Goel on 09-18-2023 ALP [Catalytic activity/Vol] 87 U/L 34-104 [facility] Aspartate aminotransferase [ Enzymatic activity/volume] in Serum or PlasmaOrdered By: Prem Goel on 09-18-2023 AST [Catalytic activity/Vol] 16 U/L 13-39 [facility] Basophils Auto (Bld) [#/Vol] Ordered By: Prem Goel on 09-18-2023 Basophils (Bld) [#/Vol] 0.0 10*3/uL 0.0-0.2 [facility] Basophils/100 WBC Auto (Bld) Ordered By: Prem Goel on 09-18-2023 Basophils/100 WBC (Bld) 0.5 % . [facility] Bilirubin.total [Mass/volume ] in Serum or PlasmaOrdered By: Prem Goel on 09-18-2023 Bilirubin [Mass/Vol] 0.6 mg/dL 0.3-1.0 [facility] Calcium [Mass/volume] in Ser um or PlasmaOrdered By: Prem Goel on 09-18-2023 Calcium [Mass/Vol] 9.5 mg/dL 8.6-10.3 [facility] Carbon dioxide, total [Moles /volume] in Serum or PlasmaOrdered By: Prem Goel on 09-18-2023 CO2 [Moles/Vol] 28.9 mmol/L 21.0-31.0 [facility] Chloride [Moles/volume] in S dede or PlasmaOrdered By: Prem Goel on 09-18-2023 Chloride [Moles/Vol] 104 mmol/L 98-107 [facility] Cholesterol [Mass/volume] in Serum or PlasmaOrdered By: Prem Goel on 09-18-2023 Cholesterol [Mass/Vol] 289 mg/dL 140-200 [facility] Comment on above: Chol less than 200 m g/dl low riskChol 201-239 mg/dl borderline riskChol 240 mg/dl and greater high risk Cholesterol in LDL Calc [Mas s/Vol]Ordered By: Prem Goel on 09-18-2023 Cholesterol in LDL [Mass/Vol] 197 mg/dL 0-100 [facility] Comment on above: LDL ATP III CLASSIFI CATIONLDL less than 100 mg/dL OptimalLDL 100-129 mg/dL Near or above optimalLDL 130-159 mg/dL Borderline highLDL 160-189 mg/dL HighLDL greater than 189 mg/dL Very high Cholesterol in VLDL Calc [Ma ss/Vol]Ordered By: Prem Goel on 09-18-2023 Cholesterol in VLDL [Mass/Vol] 23 mg/dL [facility] Complete Blood Count Auto Di ffon 09-18-2023 Basophils (Bld) [#/Vol] 0.0 10*3/uL Normal 0.0-0.2 [facility] Comment on above: Result Comment: PERF ORMED BY: [place] [address] PATHOLOGIST WEB DEVELOPMENT DIRECTOR BEV TALBERT M.D. Performed By: #### L IPID, TSH3, CBC, CMP #### [address] Basophils/100 WBC (Bld) 0.5 % Normal . T r[facility] Comment on above: Performed By: #### L IPID, TSH3, CBC, CMP #### [address] Eosinophils (Bld) [#/Vol] 0.1 10*3/uL Normal 0.0-0.45 [facility] Comment on above: Performed By: #### L IPID, TSH3, CBC, CMP #### [address] Eosinophils/100 WBC (Bld) 2.2 % Normal . [facility] Comment on above: Performed By: #### L IPID, TSH3, CBC, CMP #### [address] Erythrocyte distribution width (RBC) [Ratio] 13.9 % Normal 11.9-15.3 [facility] Comment on above: Performed By: #### L IPID, TSH3, CBC, CMP #### [address] Hematocrit (Bld) [Volume fraction] 44.9 % Normal 34.0-46.4 [facility] Comment on above: Performed By: #### L IPID, TSH3, CBC, CMP #### [address] Hemoglobin (Bld) [Mass/Vol] 14.3 g/dL Normal 11.8-15.4 [facility] Comment on above: Performed By: #### L IPID, TSH3, CBC, CMP #### [address] Lymphocytes (Bld) [#/Vol] 2.9 10*3/uL Normal 1.00-4.8 [facility] Comment on above: Performed By: #### L IPID, TSH3, CBC, CMP #### [address] Lymphocytes/100 WBC (Bld) 53.2 % Normal . [facility] Comment on above: Performed By: #### L IPID, TSH3, CBC, CMP #### [address] MCH (RBC) [Entitic mass] 29.4 pg Normal 24.7-34.3 [facility] Comment on above: Performed By: #### L IPID, TSH3, CBC, CMP #### [address] MCV (RBC) [Entitic vol] 92.3 fL Normal 80-100 [facility] Comment on above: Performed By: #### L IPID, TSH3, CBC, CMP #### [address] Mean Corpuscular HGB Conc 31.9 g/dL Low 32.0-35.0 [facility] Comment on above: Performed By: #### L IPID, TSH3, CBC, CMP #### [address] Monocytes (Bld) [#/Vol] 0.4 10*3/uL Normal 0.0-0.8 [facility] Comment on above: Performed By: #### L IPID, TSH3, CBC, CMP #### [address] Monocytes/100 WBC (Bld) 8.0 % Normal . [facility] Comment on above: Performed By: #### L IPID, TSH3, CBC, CMP #### [address] Neutrophils (Bld) [#/Vol] 1.9 10*3/uL Normal 1.8-7.7 [facility] Comment on above: Performed By: #### L IPID, TSH3, CBC, CMP #### [facility] [address] Neutrophils/100 WBC (Bld) 36.1 % Normal . [facility] Comment on above: Performed By: #### L IPID, TSH3, CBC, CMP #### [address] NRBC% 0.2 /100{WBC} Normal 0-0.5 The [facility] Comment on above: Performed By: #### L IPID, TSH3, CBC, CMP #### [address] Platelet mean volume (Bld) [Entitic vol] 10.4 fL Normal 6.3-10.7 The [facility] Comment on above: Performed By: #### L IPID, TSH3, CBC, CMP #### [place] [address] [place] Platelets (Bld) [#/Vol] 230 10*3/uL Normal 150-450 [facility] Comment on above: Performed By: #### L IPID, TSH3, CBC, CMP #### [address] RBC (Bld) [#/Vol] 4.87 10*6/uL Normal 3.60-5.00 The [facility] Comment on above: Performed By: #### L IPID, TSH3, CBC, CMP #### [place] [address] [place] WBC (Bld) [#/Vol] 5.4 10*3/uL Normal 3.8-11.6 The [facility] Comment on above: Performed By: #### L IPID, TSH3, CBC, CMP #### [address] Comprehensive Metabolic Pane [place] 09-18-2023 Albumin [Mass/Vol] 4.0 g/dL Normal 3.5-5.7 [facility] Comment on above: Order Comment: Reaso n for Exam Hyperlipidemia Performed By: #### L IPID, TSH3, CBC, CMP #### [facility] [address] [place] [id number] [facility] Albumin/Globulin [Mass ratio] 1.7 {ratio} Normal [facility] Comment on above: Order Comment: Reaso n for Exam Hyperlipidemia Performed By: #### L IPID, TSH3, CBC, CMP #### [facility] [address] [place] [id number] [facility] ALP [Catalytic activity/Vol] 87 U/L Normal 34-104 [facility] Comment on above: Order Comment: Reaso n for Exam Hyperlipidemia Performed By: #### L IPID, TSH3, CBC, CMP #### [facility] [address] ALT [Catalytic activity/Vol] 15 U/L Normal 7-52 [facility] Comment on above: Order Comment: Reaso n for Exam Hyperlipidemia Performed By: #### L IPID, TSH3, CBC, CMP #### [facility] [address] [place] [id number] [facility] Anion gap [Moles/Vol] 12.3 mmol/L Normal 6.0-15.0 [facility] Comment on above: Order Comment: Reaso n for Exam Hyperlipidemia Performed By: #### L IPID, TSH3, CBC, CMP #### [facility] [address] [place] [address] [place] AST [Catalytic activity/Vol] 16 U/L Normal 13-39 [facility] Comment on above: Order Comment: Reaso n for Exam Hyperlipidemia Performed By: #### L IPID, TSH3, CBC, CMP #### [facility] [address] [place] [address] [place] Bilirubin [Mass/Vol] 0.6 mg/dL Normal 0.3-1.0 [facility] Comment on above: Order Comment: Reaso n for Exam Hyperlipidemia Performed By: #### L IPID, TSH3, CBC, CMP #### [facility] [address] [place] [address] [place] Calcium [Mass/Vol] 9.5 mg/dL Normal 8.6-10.3 [facility] Comment on above: Order Comment: Reaso n for Exam Hyperlipidemia Performed By: #### L IPID, TSH3, CBC, CMP #### [facility] [address] [place] [address] [place] Chloride [Moles/Vol] 104 mmol/L Normal 98-107 [facility] Comment on above: Order Comment: Reaso n for Exam Hyperlipidemia Performed By: #### L IPID, TSH3, CBC, CMP #### [facility] [address] CO2 [Moles/Vol] 28.9 mmol/L Normal 21.0-31.0 The [facility] Comment on above: Order Comment: Reaso n for Exam Hyperlipidemia Performed By: #### L IPID, TSH3, CBC, CMP #### [facility] [address] Creatinine [Mass/Vol] 0.79 mg/dL Normal 0.60-1.20 [facility] Comment on above: Order Comment: Reaso n for Exam Hyperlipidemia Performed By: #### L IPID, TSH3, CBC, CMP #### [facility] [address] [place] [address] [place] GFR/1.73 sq M.predicted MDRD (S/P/Bld) [Vol rate/Area] mL/min/{1.73_m2} Normal [facility] Comment on above: Order Comment: Reaso n for Exam Hyperlipidemia Performed By: #### L IPID, TSH3, CBC, CMP #### [facility] [address] [place] [id number] [place] Globulin (S) [Mass/Vol] 2.4 g/dL Normal T [facility] Comment on above: Order Comment: Reaso n for Exam Hyperlipidemia Performed By: #### L IPID, TSH3, CBC, CMP #### [facility] [address] [place] [address] [place] Glucose [Mass/Vol] 90 mg/dL Normal 70-100 [facility] Comment on above: Order Comment: Reaso n for Exam Hyperlipidemia Result Comment: [place] Glucose Reference Range is dependent on time and content of last meal. Glucose of more than 200 mg/dL in a nonstressed, ambulatory subject supports the diagnosis of Diabetes Mellitus. ADA recommended reference range Performed By: #### L IPID, TSH3, CBC, CMP #### [facility] [address] Potassium [Moles/Vol] 4.2 mmol/L Normal 3.5-5.1 [facility] Comment on above: Order Comment: Reaso n for Exam Hyperlipidemia Performed By: #### L IPID, TSH3, CBC, CMP #### [facility] [address] Protein [Mass/Vol] 6.4 g/dL Normal 6.4-8.9 [facility] Comment on above: Order Comment: Reaso n for Exam Hyperlipidemia Performed By: #### L IPID, TSH3, CBC, CMP #### [facility] [address] [place] [address] [place] Sodium [Moles/Vol] 141 mmol/L Normal 136-145 [facility] Comment on above: Order Comment: Reaso n for Exam Hyperlipidemia Performed By: #### L IPID, TSH3, CBC, CMP #### [facility] [address] [place] [id number] [place] Urea nitrogen [Mass/Vol] 17 mg/dL Normal 7-25 [facility] Comment on above: Order Comment: Reaso n for Exam Hyperlipidemia Performed By: #### L IPID, TSH3, CBC, CMP #### [facility] [address] [place] [address] [place] Creatinine [Mass/volume] in Serum or PlasmaOrdered By: Prem Goel on 09-18-2023 Creatinine [Mass/Vol] 0.79 mg/dL 0.60-1.20 [facility] Eosinophils Auto (Bld) [#/Vo l]Ordered By: Prem Goel on 09-18-2023 Eosinophils (Bld) [#/Vol] 0.1 10*3/uL 0.0-0.45 [facility] Eosinophils/100 WBC Auto (Bl d)Ordered By: Prem Goel on 09-18-2023 Eosinophils/100 WBC (Bld) 2.2 % . [facility] Erythrocyte distribution wid th Auto (RBC) [Ratio]Ordered By: Prem Goel on 09-18-2023 Erythrocyte distribution width (RBC) [Ratio] 13.9 % 11.9-15.3 [facility] Globulin Calc (S) [Mass/Vol] Ordered By: Prem Goel on 09-18-2023 Globulin (S) [Mass/Vol] 2.4 g/dL [facility] Glucose [Mass/volume] in Ser um or PlasmaOrdered By: Prem Goel on 09-18-2023 Glucose [Mass/Vol] 90 mg/dL 70-100 [facility] Comment on above: ADA recommended refe [...] from glycated hemoglobin (Bld) [Mass/Vol] 117 mg/dL [facility] Hematocrit Auto (Bld) [Volum e fraction]Ordered By: Prem Goel on 09-18-2023 Hematocrit (Bld) [Volume fraction] 44.9 % 34.0-46.4 [facility] Hemoglobin A1c percentageOrd ered By: Prem Goel on 09-18-2023 HbA1c (Bld) [Mass fraction] 5.7 % 4.3-5.6 [facility] Comment on above: Increased risk for d iabetes: 5.7 - 6.4diabetes: >6.4glycemic control for adults with diabetes: <7.0 Hemoglobin [Mass/volume] in BloodOrdered By: Prem Goel on 09-18-2023 Hemoglobin (Bld) [Mass/Vol] 14.3 g/dL 11.8-15.4 [facility] Leukocytes [#/volume] correc guillermina for nucleated erythrocytes in Blood by Automated counOrdered By: Prem Goel on 09-18-2023 WBC corrected for nucl RBC Auto (Bld) [#/Vol] 5.4 10*3/uL 3.8-11.6 [facility] Lipid Panelon 09-18-2023 Cholesterol [Mass/Vol] 289 mg/dL High 140-200 [facility] Comment on above: Order Comment: Reaso n for Exam Hyperlipidemia Result Comment: Chol less than 200 mg/dl low risk Chol 201-239 mg/dl borderline risk Chol 240 mg/dl and greater high risk Performed By: #### L IPID, TSH3, CBC, CMP #### [facility] [address] [place] [address] [place] Cholesterol in HDL [Mass/Vol] 69 mg/dL Normal 23-92 [facility] Comment on above: Order Comment: Reaso n for Exam Hyperlipidemia Result Comment: HDL CHOL ATP-III CLASSIFICATION Cardiovascular Risk HDL > or equal to 60 mg/dL LOW HDL < 40 mg/dL HIGH Performed By: #### L IPID, TSH3, CBC, CMP #### [facility] [address] [place] [address] [place] Cholesterol.total/Araceli sterol in HDL [Mass ratio] 4.2 {ratio} Normal <5.0 [facility] Comment on above: Order Comment: Reaso n for Exam Hyperlipidemia Performed By: #### L IPID, TSH3, CBC, CMP #### [facility] [address] [place] [address] [place] LDL Cholesterol,Calculated 197 mg/dL High 0-[address] [facility] Comment on above: Order Comment: Reaso n for Exam Hyperlipidemia Result Comment: LDL ATP III CLASSIFICATION LDL less than 100 mg/dL Optimal LDL 100-129 mg/dL Near or above optimal LDL 130-159 mg/dL Borderline high LDL 160-189 mg/dL High LDL greater than 189 mg/dL Very high Performed By: #### L IPID, TSH3, CBC, CMP #### [facility] [address] [place] [address] [place] Triglyceride w/Reflex 116 mg/dL Normal 0-149 [facility] Comment on above: Order Comment: Reaso n for Exam Hyperlipidemia Result Comment: TRIG ATP III CLASSIFICATION TRIG less than 150 mg/dL Normal TRIG 150-199 mg/dL Borderline high TRIG 200-500 mg/dL High TRIG greater than 500 mg/dL Very high Standard traceable to the Center for Disease Conrtrol and Prevention (CDC) test method. Performed By: #### L IPID, TSH3, CBC, CMP #### [facility] [address] VLDL CHOLESTEROL 23 mg/dL Normal [facility] Comment on above: Order Comment: Reaso n for Exam Hyperlipidemia Performed By: #### L IPID, TSH3, CBC, CMP #### [facility] [address] [place] [id number] [place] Lymphocytes Auto (Bld) [#/Vo l]Ordered By: Prem Goel on 09-18-2023 Lymphocytes (Bld) [#/Vol] 2.9 10*3/uL 1.00-4.8 [facility] Lymphocytes/100 WBC Auto (Bl d)Ordered By: Prem Goel on 09-18-2023 Lymphocytes/100 WBC (Bld) 53.2 % . [facility] MCH Auto (RBC) [Entitic mass ]Ordered By: Prem Goel on 09-18-2023 MCH (RBC) [Entitic mass] 29.4 pg 24.7-34.3 [facility] MCHC Auto (RBC) [Mass/Vol]Or dered By: Prem Goel on 09-18-2023 MCHC (RBC) [Mass/Vol] 31.9 g/dL 32.0-35.0 [facility] MCV Auto (RBC) [Entitic vol] Ordered By: Prem Goel on 09-18-2023 MCV (RBC) [Entitic vol] 92.3 fL 80-100 [facility] Monocytes Auto (Bld) [#/Vol] Ordered By: Prem Goel on 09-18-2023 Monocytes (Bld) [#/Vol] 0.4 10*3/uL 0.0-0.8 [facility] Monocytes/100 WBC Auto (Bld) Ordered By: Prem Goel on 09-18-2023 Monocytes/100 WBC (Bld) 8.0 % . [facility] Neutrophils Auto (Bld) [#/Vo l]Ordered By: Prem Goel on 09-18-2023 Neutrophils (Bld) [#/Vol] 1.9 10*3/uL 1.8-7.7 [facility] Neutrophils/100 WBC Auto (Bl d)Ordered By: Prem Goel on 09-18-2023 Neutrophils/100 WBC (Bld) 36.1 % . [facility] No Panel InformationOrdered By: Prem Goel on 09-18-2023 Estimated GFR (CKD-EPI) > 60.0 mL/Min [facility] Creatinine Clearance (Chem N/A [facility] Nucleated erythrocytes [Pres ence] in Blood by Automated countOrdered By: Prem Goel on 09-18-2023 Nucleated RBC Auto Ql (Bld) 0.2 /100{WBC} 0-0.5 [facility] Platelet mean volume Auto (B ld) [Entitic vol]Ordered By: Prem Goel on 09-18-2023 Platelet mean volume (Bld) [Entitic vol] 10.4 fL 6.3-10.7 [facility] Platelets Auto (Bld) [#/Vol] Ordered By: Prem Goel on 09-18-2023 Platelets (Bld) [#/Vol] 230 10*3/uL 150-450 [facility] Potassium [Moles/volume] in Serum or PlasmaOrdered By: Prem Goel on 09-18-2023 Potassium [Moles/Vol] 4.2 mmol/L 3.5-5.1 [facility] Protein [Mass/volume] in Ser um or PlasmaOrdered By: Prem Goel on 09-18-2023 Protein [Mass/Vol] 6.4 g/dL 6.4-8.9 [facility] RBC Auto (Bld) [#/Vol]Ordere d By: Prem Goel on 09-18-2023 RBC (Bld) [#/Vol] 4.87 10*6/uL 3.60-5.[address] [facility] Serum or plasma albumin/glob ulin mass ratioOrdered By: Prem Goel on 09-18-2023 Albumin/Globulin [Mass ratio] 1.7 {ratio} [facility] Serum or plasma anion gap de terminationOrdered By: Prem Goel on 09-18-2023 Anion gap [Moles/Vol] 12.3 mmol/L 6.0-15.0 [facility] Serum or plasma high density lipoprotein (HDL) cholesterol measurementOrdered By: Prem Goel on 09-18-2023 Cholesterol in HDL [Mass/Vol] 69 mg/dL 23-92 [facility] Comment on above: HDL CHOL ATP-III CLA SSIFICATION Cardiovascular RiskHDL > or equal to 60 mg/dL LOWHDL < 40 mg/dL HIGH Serum or plasma total choles terol/high density lipoprotein (HDL) cholesterol mass ratOrdered By: Prem Goel on 09-18-2023 Cholesterol.total/Araceli sterol in HDL [Mass ratio] 4.2 {ratio} <5.0 [facility] Sodium [Moles/volume] in Ser um or PlasmaOrdered By: Prem Goel on 09-18-2023 Sodium [Moles/Vol] 141 mmol/L 136-145 [facility] Thyroid Stimulating Hormoneo n 09-18-2023 TSH Qn 2.60 m[IU]/L Normal 0.45-5.33 [facility] Comment on above: Order Comment: Reaso n for Exam Hyperlipidemia Result Comment: PERF ORMED BY: [place] [address] PATHOLOGIST WEB DEVELOPMENT DIRECTOR BEV TALBERT M.D. Performed By: #### L IPID, TSH3, CBC, CMP #### [address] Thyrotropin [Units/volume] i n Serum or PlasmaOrdered By: Prem Goel on 09-18-2023 TSH Qn 2.60 m[IU]/L 0.45-5.33 [facility] Triglyceride [Mass/volume] i n Serum or PlasmaOrdered By: Prem Goel on 09-18-2023 Triglyceride [Mass/Vol] 116 mg/dL 0-149 [facility] Comment on above: TRIG ATP III CLASSIF ICATIONTRIG less than 150 mg/dL NormalTRIG 150-199 mg/dL Borderline highTRIG 200-500 mg/dL High TRIG greater than 500 mg/dL Very highStandard traceable to the Center for Disease Conrtrol and Prevention (CDC) test method. Urea nitrogen [Mass/volume] in Serum or PlasmaOrdered By: Prem Goel on 09-18-2023 Urea nitrogen [Mass/Vol] 17 mg/dL 7-25 [facility] WBC Auto (Bld) [#/Vol]Ordere d By: Prem Goel on 09-18-2023 WBC (Bld) [#/Vol] 5.4 10*3/uL 3.8-11.6 [facility] Basophils Auto (Bld) [#/Vol] on 08-07-2023 Basophils (Bld) [#/Vol] 0.0 10 3/uL 0.0-0.1 [facility] Basophils/100 WBC Auto (Bld) on 08-07-2023 Basophils/100 WBC (Bld) 0.5 % 0.2-2.0 [facility] Eosinophils/100 WBC Auto (Bl d)on 08-07-2023 Eosinophils/100 WBC (Bld) 1.1 % 0.9-7.0 [facility] Erythrocyte distribution wid th Auto (RBC) [Ratio]on 08-07-2023 Erythrocyte distribution width (RBC) [Ratio] 12.6 % 11.0-15.0 [facility] Estimated glomerular filtrat ion rate (GFR) non- Americanon 08-07-2023 GFR/1.73 sq M.predicted among non-blacks MDRD (S/P/Bld) [Vol rate/Area] mL/min/{1.73_m2} >=60 [facility] Globulin Calc (S) [Mass/Vol] on 08-07-2023 Globulin (S) [Mass/Vol] 3.8 g/dL [facility] Hematocrit Auto (Bld) [Volum e fraction]on 08-07-2023 Hematocrit (Bld) [Volume fraction] 48.4 % 36.0-48.0 [facility] Hemoglobin [Mass/volume] in Bloodon 08-07-2023 Hemoglobin (Bld) [Mass/Vol] 15.4 g/dL 12.0-16.0 [facility] - Chemistry and C hemistry - challengeon 08-07-2023 Albumin [Mass/Vol] 3.4 g/dL 3.4-5.0 [facility] ALP [Catalytic activity/Vol] 118 U/L 46-116 [facility] ALT [Catalytic activity/Vol] 23 U/L 14-59 [facility] AST [Catalytic activity/Vol] 20 U/L 15-37 [facility] Bilirubin [Mass/Vol] 0.4 mg/dL 0.2-1.0 [facility] Calcium [Mass/Vol] 9.4 mg/dL 8.5-10.1 [facility] Chloride [Moles/Vol] 106 mmol/L 98-107 [facility] CO2 [Moles/Vol] 28.0 mmol/L 21.0-32.0 [facility] Creatinine [Mass/Vol] 0.80 mg/dL 0.55-1.02 [facility] GFR/1.73 sq M.predicted MDRD (S/P/Bld) [Vol rate/Area] mL/min/{1.73_m2} >=60 [facility] Glucose [Mass/Vol] 121 mg/dL 74-106 [facility] Potassium [Moles/Vol] 3.9 mmol/L 3.5-5.1 [facility] Protein [Mass/Vol] 7.2 g/dL 6.4-8.2 [facility] Sodium [Moles/Vol] 142 mmol/L 136-145 [facility] Urea nitrogen [Mass/Vol] 20.0 mg/dL 7.0-18.0 [facility] Urea nitrogen/Creatinine [Mass ratio] 25.0 mg/mg [facility] - Hematology and Cell countson 08-07-2023 Immature granulocytes/100 WBC (Bld) 0.3 % 0.0-0.5 [facility] Leukocytes [#/volume] correc guillermina for nucleated erythrocytes in Blood by Automated counon 08-07-2023 WBC corrected for nucl RBC Auto (Bld) [#/Vol] 7.5 10 3/uL 4.0-11.0 [facility] Lymphocytes Auto (Bld) [#/Vo l]on 08-07-2023 Lymphocytes (Bld) [#/Vol] 3.4 10 3/uL 1.2-3.8 [facility] Lymphocytes/100 WBC Auto (Bl d)on 08-07-2023 Lymphocytes/100 WBC (Bld) 45.6 % 20.5-60.0 [facility] MCH Auto (RBC) [Entitic mass ]on 08-07-2023 MCH (RBC) [Entitic mass] 29.7 pg 26.7-34.0 [facility] MCHC Auto (RBC) [Mass/Vol]on 08-07-2023 MCHC (RBC) [Mass/Vol] 31.8 g/dL 29.9-35.2 [facility] MCV Auto (RBC) [Entitic vol] on 08-07-2023 MCV (RBC) [Entitic vol] 93.3 fL 81.0-99.0 [facility] Monocytes Auto (Bld) [#/Vol] on 08-07-2023 Monocytes (Bld) [#/Vol] 0.7 10 3/uL 0.3-0.8 [facility] Monocytes/100 WBC Auto (Bld) on 08-07-2023 Monocytes/100 WBC (Bld) 8.6 % 1.7-12.0 [facility] Neutrophils Auto (Bld) [#/Vo l]on 08-07-2023 Neutrophils (Bld) [#/Vol] 3.3 10 3/uL 1.4-6.5 [facility] Neutrophils/100 WBC Auto (Bl d)on 08-07-2023 Neutrophils/100 WBC (Bld) 43.9 % 43.0-75.0 [facility] No Panel Informationon 08-06 Eosinophils # (Auto) 0.1 10 3/uL 0.0-0.7 [facility] Immature Granulocyte # (Auto) 0.02 10 3/uL 0.00-0.03 [facility] Platelet mean volume Auto (B ld) [Entitic vol]on 08-07-2023 Platelet mean volume (Bld) [Entitic vol] 12.5 fL 9.5-13.5 [facility] Platelets Auto (Bld) [#/Vol] on 08-07-2023 Platelets (Bld) [#/Vol] 238 10 3/uL 150-450 [facility] RBC Auto (Bld) [#/Vol]on RBC (Bld) [#/Vol] 5.19 10 6/uL 4.20-5.[address] [facility] Serum or plasma albumin/glob ulin mass ratioon 08-07-2023 Albumin/Globulin [Mass ratio] 0.9 {ratio} [facility] Serum or plasma anion gap de terminationon 08-07-2023 Anion gap [Moles/Vol] 11.9 mmol/L [facility] A1C with Estimated Average G luon 03-12-2023 Glucose [Mass/Vol] 126 mg/dL Normal [facility] Comment on above: Order Comment: Reaso n for Exam Hyperglycemia Result Comment: PERF ORMED BY: [place] [address] PATHOLOGIST WEB DEVELOPMENT DIRECTOR BEV TALBERT M.D. Performed By: #### L IPID, TSH3, CBC, CMP #### [facility] [address] [place] [address] HbA1c (Bld) [Mass fraction] 6.0 % High 4.3-5.6 [facility] Comment on above: Order Comment: Reaso n for Exam Hyperglycemia Result Comment: Incr eased risk for diabetes: 5.7 - 6.4 diabetes: >6.4 glycemic control for adults with diabetes: <7.0 Performed By: #### L IPID, TSH3, CBC, CMP #### [facility] [address] [place] [address] [place] Alanine aminotransferase [En zymatic activity/volume] in Serum or PlasmaOrdered By: Prem Goel on 03-12-2023 ALT [Catalytic activity/Vol] 11 U/L 7-52 [facility] Albumin [Mass/volume] in Ser um or Plasma by Bromocresol green (BCG) dye binding methoOrdered By: Prem Goel on 03-12-2023 Albumin BCG dye [Mass/Vol] 3.9 g/dL 3.5-5.7 [facility] Alkaline phosphatase [Enzyma tic activity/volume] in Serum or PlasmaOrdered By: Prem Goel on 03-12-2023 ALP [Catalytic activity/Vol] 89 U/L 34-104 [facility] Aspartate aminotransferase [ Enzymatic activity/volume] in Serum or PlasmaOrdered By: Prem Goel on 03-12-2023 AST [Catalytic activity/Vol] 15 U/L 13-39 [facility] Basophils Auto (Bld) [#/Vol] Ordered By: Prem Goel on 03-12-2023 Basophils (Bld) [#/Vol] 0.0 10*3/uL 0.0-0.2 [facility] Basophils/100 WBC Auto (Bld) Ordered By: Prem Goel on 03-12-2023 Basophils/100 WBC (Bld) 0.7 % . [facility] Bilirubin.total [Mass/volume ] in Serum or PlasmaOrdered By: Prem Goel on 03-12-2023 Bilirubin [Mass/Vol] 0.6 mg/dL 0.3-1.0 [facility] Calcium [Mass/volume] in Ser um or PlasmaOrdered By: Prem Goel on 03-12-2023 Calcium [Mass/Vol] 9.4 mg/dL 8.6-10.3 [facility] Carbon dioxide, total [Moles /volume] in Serum or PlasmaOrdered By: Prem Goel on 03-12-2023 CO2 [Moles/Vol] 28.2 mmol/L 21.0-31.0 [facility] Chloride [Moles/volume] in S dede or PlasmaOrdered By: Prem Goel on 03-12-2023 Chloride [Moles/Vol] 107 mmol/L 98-107 [facility] Cholesterol [Mass/volume] in Serum or PlasmaOrdered By: Prem Goel on 03-12-2023 Cholesterol [Mass/Vol] 228 mg/dL 140-200 [facility] Comment on above: Chol less than 200 m g/dl low riskChol 201-239 mg/dl borderline riskChol 240 mg/dl and greater high risk Cholesterol in LDL Calc [Mas s/Vol]Ordered By: Prem Goel on 03-12-2023 Cholesterol in LDL [Mass/Vol] 146 mg/dL 0-100 [facility] Comment on above: LDL ATP III CLASSIFI CATIONLDL less than 100 mg/dL OptimalLDL 100-129 mg/dL Near or above optimalLDL 130-159 mg/dL Borderline highLDL 160-189 mg/dL HighLDL greater than 189 mg/dL Very high Cholesterol in VLDL Calc [Ma ss/Vol]Ordered By: Prem Goel on 03-12-2023 Cholesterol in VLDL [Mass/Vol] 15 mg/dL [facility] Complete Blood Count Auto Di ffon 03-12-2023 Basophils (Bld) [#/Vol] 0.0 10*3/uL Normal 0.0-0.2 [facility] Comment on above: Order Comment: Reaso n for Exam Hyperlipidemia Result Comment: PERF ORMED BY: [place] [address] PATHOLOGIST WEB DEVELOPMENT DIRECTOR BEV TALBERT M.D. Performed By: #### C BC #### [facility] [address] [place] [address] [place] Basophils/100 WBC (Bld) 0.7 % Normal . [facility] Comment on above: Order Comment: Reaso n for Exam Hyperlipidemia Performed By: #### C BC #### [facility] [address] [place] [id number] [place] Eosinophils (Bld) [#/Vol] 0.1 10*3/uL Normal 0.0-0.45 [facility] Comment on above: Order Comment: Reaso n for Exam Hyperlipidemia Performed By: #### C BC #### [facility] [address] [place] [address] [place] Eosinophils/100 WBC (Bld) 2.3 % Normal . [facility] Comment on above: Order Comment: Reaso n for Exam Hyperlipidemia Performed By: #### C BC #### [facility] [address] [place] [address] [place] Erythrocyte distribution width (RBC) [Ratio] 12.9 % Normal 11.9-15.3 [facility] Comment on above: Order Comment: Reaso n for Exam Hyperlipidemia Performed By: #### C BC #### [address] Hematocrit (Bld) [Volume fraction] 45.2 % Normal 34.0-46.4 [facility] Comment on above: Order Comment: Reaso n for Exam Hyperlipidemia Performed By: #### C BC #### [address] Hemoglobin (Bld) [Mass/Vol] 14.9 g/dL Normal 11.8-15.4 [facility] Comment on above: Order Comment: Reaso n for Exam Hyperlipidemia Performed By: #### C BC #### [address] Lymphocytes (Bld) [#/Vol] 2.6 10*3/uL Normal 1.00-4.8 [facility] Comment on above: Order Comment: Reaso n for Exam Hyperlipidemia Performed By: #### C BC #### [address] Lymphocytes/100 WBC (Bld) 42.3 % Normal . [facility] Comment on above: Order Comment: Reaso n for Exam Hyperlipidemia Performed By: #### C BC #### [address] MCH (RBC) [Entitic mass] 29.8 pg Normal 24.7-34.3 [facility] Comment on above: Order Comment: Reaso n for Exam Hyperlipidemia Performed By: #### C BC #### [address] MCV (RBC) [Entitic vol] 90.5 fL Normal 80-100 [facility] Comment on above: Order Comment: Reaso n for Exam Hyperlipidemia Performed By: #### C BC #### [address] Mean Corpuscular HGB Conc 33.0 g/dL Normal 32.0-35.0 [facility] Comment on above: Order Comment: Reaso n for Exam Hyperlipidemia Performed By: #### C BC #### [address] [place] [address] [place] Monocytes (Bld) [#/Vol] 0.6 10*3/uL Normal 0.0-0.8 [facility] Comment on above: Order Comment: Reaso n for Exam Hyperlipidemia Performed By: #### C BC #### [facility] [address] Monocytes/100 WBC (Bld) 9.1 % Normal . [facility] Comment on above: Order Comment: Reaso n for Exam Hyperlipidemia Performed By: #### C BC #### [place] [address] [place] Neutrophils (Bld) [#/Vol] 2.8 10*3/uL Normal 1.8-7.7 [facility] Comment on above: Order Comment: Reaso n for Exam Hyperlipidemia Performed By: #### C BC #### [address] Neutrophils/100 WBC (Bld) 45.6 % Normal . [facility] Comment on above: Order Comment: Reaso n for Exam Hyperlipidemia Performed By: #### C BC #### [place] [address] [place] NRBC% 0.1 /100{WBC} Normal 0-0.5 [facility] Comment on above: Order Comment: Reaso n for Exam Hyperlipidemia Performed By: #### C BC #### [place] [address] [place] Platelet mean volume (Bld) [Entitic vol] 10.2 fL Normal 6.3-10.7 [facility] Comment on above: Order Comment: Reaso n for Exam Hyperlipidemia Performed By: #### C BC #### [place] [address] [place] Platelets (Bld) [#/Vol] 201 10*3/uL Normal 150-450 [facility] Comment on above: Order Comment: Reaso n for Exam Hyperlipidemia Performed By: #### C BC #### [place] [address] [place] RBC (Bld) [#/Vol] 4.99 10*6/uL Normal 3.60-5.00 [facility] Comment on above: Order Comment: Reaso n for Exam Hyperlipidemia Performed By: #### C BC #### [address] WBC (Bld) [#/Vol] 6.1 10*3/uL Normal 3.8-11.6 [facility] Comment on above: Order Comment: Reaso n for Exam Hyperlipidemia Performed By: #### C BC #### [address] Comprehensive Metabolic Pane [place] 03-12-2023 Albumin [Mass/Vol] 3.9 g/dL Normal 3.5-5.7 [facility] Comment on above: Order Comment: Reaso n for Exam Hyperlipidemia Performed By: #### T SH3, LIPID, CMP #### [address] Albumin/Globulin [Mass ratio] 1.8 {ratio} Normal [facility] Comment on above: Order Comment: Reaso n for Exam Hyperlipidemia Performed By: #### T SH3, LIPID, CMP #### [address] ALP [Catalytic activity/Vol] 89 U/L Normal 34-104 [facility] Comment on above: Order Comment: Reaso n for Exam Hyperlipidemia Performed By: #### T SH3, LIPID, CMP #### [address] ALT [Catalytic activity/Vol] 11 U/L Normal 7-52 [facility] Comment on above: Order Comment: Reaso n for Exam Hyperlipidemia Performed By: #### T SH3, LIPID, CMP #### [address] Anion gap [Moles/Vol] 10.1 mmol/L Normal 6.0-15.0 [facility] Comment on above: Order Comment: Reaso n for Exam Hyperlipidemia Performed By: #### T SH3, LIPID, CMP #### [address] AST [Catalytic activity/Vol] 15 U/L Normal 13-39 [facility] Comment on above: Order Comment: Reaso n for Exam Hyperlipidemia Performed By: #### T SH3, LIPID, CMP #### [facility] [address] Bilirubin [Mass/Vol] 0.6 mg/dL Normal 0.3-1.0 [facility] Comment on above: Order Comment: Reaso n for Exam Hyperlipidemia Performed By: #### T SH3, LIPID, CMP #### [facility] [address] [place] [address] [place] Calcium [Mass/Vol] 9.4 mg/dL Normal 8.6-10.3 [facility] Comment on above: Order Comment: Reaso n for Exam Hyperlipidemia Performed By: #### T SH3, LIPID, CMP #### [facility] [address] [place] [address] [place] Chloride [Moles/Vol] 107 mmol/L Normal 98-107 [facility] Comment on above: Order Comment: Reaso n for Exam Hyperlipidemia Performed By: #### T SH3, LIPID, CMP #### [facility] [address] [place] [address] [place] CO2 [Moles/Vol] 28.2 mmol/L Normal 21.0-31.0 [facility] Comment on above: Order Comment: Reaso n for Exam Hyperlipidemia Performed By: #### T SH3, LIPID, CMP #### [facility] [address] [place] [address] [place] Creatinine [Mass/Vol] 0.77 mg/dL Normal 0.60-1.20 [facility] Comment on above: Order Comment: Reaso n for Exam Hyperlipidemia Performed By: #### T SH3, LIPID, CMP #### [facility] [address] [place] [address] [place] GFR/1.73 sq M.predicted MDRD (S/P/Bld) [Vol rate/Area] mL/min/{1.73_m2} Normal [facility] Comment on above: Order Comment: Reaso n for Exam Hyperlipidemia Performed By: #### T SH3, LIPID, CMP #### [facility] [address] [place] [address] [place] Globulin (S) [Mass/Vol] 2.2 g/dL Normal [facility] Comment on above: Order Comment: Reaso n for Exam Hyperlipidemia Performed By: #### T SH3, LIPID, CMP #### [facility] [address] [place] [address] [place] Glucose [Mass/Vol] 96 mg/dL Normal 70-100 [facility] Comment on above: Order Comment: Reaso n for Exam Hyperlipidemia Result Comment: [place] Glucose Reference Range is dependent on time and content of last meal. Glucose of more than 200 mg/dL in a nonstressed, ambulatory subject supports the diagnosis of Diabetes Mellitus. ADA recommended reference range Performed By: #### T SH3, LIPID, CMP #### [facility] [address] [place] [address] [place] Potassium [Moles/Vol] 4.3 mmol/L Normal 3.5-5.1 [facility] Comment on above: Order Comment: Reaso n for Exam Hyperlipidemia Performed By: #### T SH3, LIPID, CMP #### [facility] [address] [place] [address] [place] Protein [Mass/Vol] 6.1 g/dL Low 6.4-8.9 [facility] Comment on above: Order Comment: Reaso n for Exam Hyperlipidemia Performed By: #### T SH3, LIPID, CMP #### [facility] [address] [place] [address] [place] Sodium [Moles/Vol] 141 mmol/L Normal 136-145 [facility] Comment on above: Order Comment: Reaso n for Exam Hyperlipidemia Performed By: #### T SH3, LIPID, CMP #### [facility] [address] [place] [id number] [place] Urea nitrogen [Mass/Vol] 18 mg/dL Normal 7-25 [facility] Comment on above: Order Comment: Reaso n for Exam Hyperlipidemia Performed By: #### T SH3, LIPID, CMP #### [facility] [address] [place] [id number] [place] Creatinine [Mass/volume] in Serum or PlasmaOrdered By: Prem Goel on 03-12-2023 Creatinine [Mass/Vol] 0.77 mg/dL 0.60-1.20 [facility] Eosinophils Auto (Bld) [#/Vo l]Ordered By: Prem Goel on 03-12-2023 Eosinophils (Bld) [#/Vol] 0.1 10*3/uL 0.0-0.45 [facility] Eosinophils/100 WBC Auto (Bl d)Ordered By: Prem Goel on 03-12-2023 Eosinophils/100 WBC (Bld) 2.3 % . [facility] Erythrocyte distribution wid th Auto (RBC) [Ratio]Ordered By: Prem Goel on 03-12-2023 Erythrocyte distribution width (RBC) [Ratio] 12.9 % 11.9-15.3 [facility] Globulin Calc (S) [Mass/Vol] Ordered By: Prem Goel on 03-12-2023 Globulin (S) [Mass/Vol] 2.2 g/dL [facility] Glucose [Mass/volume] in Ser um or PlasmaOrdered By: Prem Goel on 03-12-2023 Glucose [Mass/Vol] 96 mg/dL 70-100 [facility] Comment on above: ADA recommended refe rence rangeRandom Glucose Reference Range is dependent on time and content of last meal. Glucose of more than 200 mg/dL in a nonstressed, ambulatory subject supports the diagnosis of Diabetes Mellitus. Hematocrit Auto (Bld) [Volum e fraction]Ordered By: Prem Goel on 03-12-2023 Hematocrit (Bld) [Volume fraction] 45.2 % 34.0-46.4 [facility] Hemoglobin [Mass/volume] in BloodOrdered By: Prem Goel on 03-12-2023 Hemoglobin (Bld) [Mass/Vol] 14.9 g/dL 11.8-15.4 [facility] Leukocytes [#/volume] correc guillermina for nucleated erythrocytes in Blood by Automated counOrdered By: Prem Goel on 03-12-2023 WBC corrected for nucl RBC Auto (Bld) [#/Vol] 6.1 10*3/uL 3.8-11.6 [facility] Lipid Panelon 03-12-2023 Cholesterol [Mass/Vol] 228 mg/dL High 140-200 [facility] Comment on above: Order Comment: Reaso n for Exam Hyperlipidemia Result Comment: Chol less than 200 mg/dl low risk Chol 201-239 mg/dl borderline risk Chol 240 mg/dl and greater high risk Performed By: #### T SH3, LIPID, CMP #### [facility] [address] [place] [address] [place] Cholesterol in HDL [Mass/Vol] 66 mg/dL Normal 23-92 [facility] Comment on above: Order Comment: Reaso n for Exam Hyperlipidemia Result Comment: HDL CHOL ATP-III CLASSIFICATION Cardiovascular Risk HDL > or equal to 60 mg/dL LOW HDL < 40 mg/dL HIGH Performed By: #### T SH3, LIPID, CMP #### [facility] [address] [place] [id number] [facility] Cholesterol.total/Araceli sterol in HDL [Mass ratio] 3.5 {ratio} Normal <5.0 [facility] Comment on above: Order Comment: Reaso n for Exam Hyperlipidemia Performed By: #### T SH3, LIPID, CMP #### [facility] [address] [place] [id number] [place] LDL Cholesterol,Calculated 146 mg/dL High 0-[address] [facility] Comment on above: Order Comment: Reaso n for Exam Hyperlipidemia Result Comment: LDL ATP III CLASSIFICATION LDL less than 100 mg/dL Optimal LDL 100-129 mg/dL Near or above optimal LDL 130-159 mg/dL Borderline high LDL 160-189 mg/dL High LDL greater than 189 mg/dL Very high Performed By: #### T SH3, LIPID, CMP #### [facility] [address] [place] [address] [place] Triglyceride w/Reflex 78 mg/dL Normal 0-149 [facility] Comment on above: Order Comment: Reaso n for Exam Hyperlipidemia Result Comment: TRIG ATP III CLASSIFICATION TRIG less than 150 mg/dL Normal TRIG 150-199 mg/dL Borderline high TRIG 200-500 mg/dL High TRIG greater than 500 mg/dL Very high Standard traceable to the Center for Disease Conrtrol and Prevention (CDC) test method. Performed By: #### T SH3, LIPID, CMP #### [facility] [address] VLDL CHOLESTEROL 15 mg/dL Normal [facility] Comment on above: Order Comment: Reaso n for Exam Hyperlipidemia Performed By: #### T SH3, LIPID, CMP #### [facility] [address] [place] [id number] [facility] Lymphocytes Auto (Bld) [#/Vo l]Ordered By: Prem Goel on 03-12-2023 Lymphocytes (Bld) [#/Vol] 2.6 10*3/uL 1.00-4.8 [facility] Lymphocytes/100 WBC Auto (Bl d)Ordered By: Prem Goel on 03-12-2023 Lymphocytes/100 WBC (Bld) 42.3 % . [facility] MCH Auto (RBC) [Entitic mass ]Ordered By: Prem Goel on 03-12-2023 MCH (RBC) [Entitic mass] 29.8 pg 24.7-34.3 [facility] MCHC Auto (RBC) [Mass/Vol]Or dered By: Prem Goel on 03-12-2023 MCHC (RBC) [Mass/Vol] 33.0 g/dL 32.0-35.0 [facility] MCV Auto (RBC) [Entitic vol] Ordered By: Prem Goel on 03-12-2023 MCV (RBC) [Entitic vol] 90.5 fL 80-100 [facility] Monocytes Auto (Bld) [#/Vol] Ordered By: Prem Goel on 03-12-2023 Monocytes (Bld) [#/Vol] 0.6 10*3/uL 0.0-0.8 [facility] Monocytes/100 WBC Auto (Bld) Ordered By: Prem Goel on 03-12-2023 Monocytes/100 WBC (Bld) 9.1 % . [facility] Neutrophils Auto (Bld) [#/Vo l]Ordered By: Prem Goel on 03-12-2023 Neutrophils (Bld) [#/Vol] 2.8 10*3/uL 1.8-7.7 [facility] Neutrophils/100 WBC Auto (Bl d)Ordered By: Prem Goel on 03-12-2023 Neutrophils/100 WBC (Bld) 45.6 % . [facility] No Panel InformationOrdered By: Prem Goel on 03-12-2023 Estimated GFR (CKD-EPI) > 60.0 mL/Min [facility] Creatinine Clearance (Chem N/A [facility] Nucleated erythrocytes [Pres ence] in Blood by Automated countOrdered By: Prem Goel on 03-12-2023 Nucleated RBC Auto Ql (Bld) 0.1 /100{WBC} 0-0.5 [facility] Platelet mean volume Auto (B ld) [Entitic vol]Ordered By: Prem Goel on 03-12-2023 Platelet mean volume (Bld) [Entitic vol] 10.2 fL 6.3-10.7 [facility] Platelets Auto (Bld) [#/Vol] Ordered By: Prem Goel on 03-12-2023 Platelets (Bld) [#/Vol] 201 10*3/uL 150-450 [facility] Potassium [Moles/volume] in Serum or PlasmaOrdered By: Prem Goel on 03-12-2023 Potassium [Moles/Vol] 4.3 mmol/L 3.5-5.1 [facility] Protein [Mass/volume] in Ser um or PlasmaOrdered By: Prem Goel on 03-12-2023 Protein [Mass/Vol] 6.1 g/dL 6.4-8.9 [facility] RBC Auto (Bld) [#/Vol]Ordere d By: Prem Goel on 03-12-2023 RBC (Bld) [#/Vol] 4.99 10*6/uL 3.60-5.[address] [facility] Serum or plasma albumin/glob ulin mass ratioOrdered By: Prem Goel on 03-12-2023 Albumin/Globulin [Mass ratio] 1.8 {ratio} [facility] Serum or plasma anion gap de terminationOrdered By: Prem Goel on 03-12-2023 Anion gap [Moles/Vol] 10.1 mmol/L 6.0-15.0 [facility] Serum or plasma high density lipoprotein (HDL) cholesterol measurementOrdered By: Prem Goel on 03-12-2023 Cholesterol in HDL [Mass/Vol] 66 mg/dL 23- [facility] Comment on above: HDL CHOL ATP-III CLA SSIFICATION Cardiovascular RiskHDL > or equal to 60 mg/dL LOWHDL < 40 mg/dL HIGH Serum or plasma total choles terol/high density lipoprotein (HDL) cholesterol mass ratOrdered By: Prem Goel on 03-12-2023 Cholesterol.total/Araceli sterol in HDL [Mass ratio] 3.5 {ratio} <5.0 [facility] Sodium [Moles/volume] in Ser um or PlasmaOrdered By: Prem Goel on 03-12-2023 Sodium [Moles/Vol] 141 mmol/L 136-145 [facility] Thyroid Stimulating Hormoneo n 03-12-2023 TSH Qn 1.91 m[IU]/L Normal 0.45-5.33 [facility] Comment on above: Order Comment: Reaso n for Exam Hyperlipidemia Result Comment: PERF ORMED BY: [place] [address] PATHOLOGIST WEB DEVELOPMENT DIRECTOR BEV TALBERT M.D. Performed By: #### T SH3, LIPID, CMP #### [address] Thyrotropin [Units/volume] i n Serum or PlasmaOrdered By: Prem Goel on 03-12-2023 TSH Qn 1.91 m[IU]/L 0.45-5.33 [facility] Triglyceride [Mass/volume] i n Serum or PlasmaOrdered By: Prem Goel on 03-12-2023 Triglyceride [Mass/Vol] 78 mg/dL 0-149 [facility] Comment on above: TRIG ATP III CLASSIF ICATIONTRIG less than 150 mg/dL NormalTRIG 150-199 mg/dL Borderline highTRIG 200-500 mg/dL High TRIG greater than 500 mg/dL Very highStandard traceable to the Center for Disease Conrtrol and Prevention (CDC) test method. Urea nitrogen [Mass/volume] in Serum or PlasmaOrdered By: Prem Goel on 03-12-2023 Urea nitrogen [Mass/Vol] 18 mg/dL - [facility] WBC Auto (Bld) [#/Vol]Ordere d By: Prem Raymon on 03-12-2023 WBC (Bld) [#/Vol] 6.1 10*3/uL 3.8-11.6 [facility] A1C with Estimated Average G luon 10-30-2022 Glucose [Mass/Vol] 128 mg/dL Normal [facility] Comment on above: Order Comment: Reaso n for Exam Hyperglycemia Result Comment: PERF ORMED BY: [place] [address] PATHOLOGIST WEB DEVELOPMENT DIRECTOR BEV TALBERT M.D. Performed By: #### A 1C [facility] eA #### [address] HbA1c (Bld) [Mass fraction] 6.1 % High 4.3-5.6 [facility] Comment on above: Order Comment: Reaso n for Exam Hyperglycemia Result Comment: Incr eased risk for diabetes: 5.7 - 6.4 diabetes: >6.4 glycemic control for adults with diabetes: <7.0 Performed By: #### A 1C [facility] eA #### [address] Complete Blood Count Auto Di ffon 10-30-2022 Basophils (Bld) [#/Vol] 0.0 10*3/uL Normal 0.0-0.2 [facility] Comment on above: Order Comment: Reaso n for Exam Hyperlipidemia Result Comment: PERF ORMED BY: [place] [address] PATHOLOGIST WEB DEVELOPMENT DIRECTOR BEV TALBERT M.D. Performed By: #### L IPID, TSH3, CBC, CMP #### [place] [address] [place] Basophils/100 WBC (Bld) 0.6 % Normal . T [facility] Comment on above: Order Comment: Reaso n for Exam Hyperlipidemia Performed By: #### L IPID, TSH3, CBC, CMP #### [place] [address] [place] Eosinophils (Bld) [#/Vol] 0.5 10*3/uL High 0.0-0.45 [facility] Comment on above: Order Comment: Reaso n for Exam Hyperlipidemia Performed By: #### L IPID, TSH3, CBC, CMP #### [place] [address] [place] Eosinophils/100 WBC (Bld) 8.1 % Normal . [facility] Comment on above: Order Comment: Reaso n for Exam Hyperlipidemia Performed By: #### L IPID, TSH3, CBC, CMP #### [address] Erythrocyte distribution width (RBC) [Ratio] 13.8 % Normal 11.9-15.3 [facility] Comment on above: Order Comment: Reaso n for Exam Hyperlipidemia Performed By: #### L IPID, TSH3, CBC, CMP #### [address] Hematocrit (Bld) [Volume fraction] 43.9 % Normal 34.0-46.4 [facility] Comment on above: Order Comment: Reaso n for Exam Hyperlipidemia Performed By: #### L IPID, TSH3, CBC, CMP #### [place] [address] [place] Hemoglobin (Bld) [Mass/Vol] 14.6 g/dL Normal 11.8-15.4 [facility] Comment on above: Order Comment: Reaso n for Exam Hyperlipidemia Performed By: #### L IPID, TSH3, CBC, CMP #### [facility] [address] [place] [address] [place] Lymphocytes (Bld) [#/Vol] 1.5 10*3/uL Normal 1.00-4.8 [facility] Comment on above: Order Comment: Reaso n for Exam Hyperlipidemia Performed By: #### L IPID, TSH3, CBC, CMP #### [place] [address] [place] Lymphocytes/100 WBC (Bld) 27.1 % Normal . [facility] Comment on above: Order Comment: Reaso n for Exam Hyperlipidemia Performed By: #### L IPID, TSH3, CBC, CMP #### [address] MCH (RBC) [Entitic mass] 30.0 pg Normal 24.7-34.3 [facility] Comment on above: Order Comment: Reaso n for Exam Hyperlipidemia Performed By: #### L IPID, TSH3, CBC, CMP #### [address] MCV (RBC) [Entitic vol] 90.4 fL Normal 80-100 [facility] Comment on above: Order Comment: Reaso n for Exam Hyperlipidemia Performed By: #### L IPID, TSH3, CBC, CMP #### [address] Mean Corpuscular HGB Conc 33.3 g/dL Normal 32.0-35.0 [facility] Comment on above: Order Comment: Reaso n for Exam Hyperlipidemia Performed By: #### L IPID, TSH3, CBC, CMP #### [address] Monocytes (Bld) [#/Vol] 0.6 10*3/uL Normal 0.0-0.8 [facility] Comment on above: Order Comment: Reaso n for Exam Hyperlipidemia Performed By: #### L IPID, TSH3, CBC, CMP #### [place] [address] [place] Monocytes/100 WBC (Bld) 10.7 % Normal . [facility] Comment on above: Order Comment: Reaso n for Exam Hyperlipidemia Performed By: #### L IPID, TSH3, CBC, CMP #### [place] [address] [place] Neutrophils (Bld) [#/Vol] 3.0 10*3/uL Normal 1.8-7.7 [facility] Comment on above: Order Comment: Reaso n for Exam Hyperlipidemia Performed By: #### L IPID, TSH3, CBC, CMP #### [place] [address] [place] Neutrophils/100 WBC (Bld) 53.5 % Normal . [facility] Comment on above: Order Comment: Reaso n for Exam Hyperlipidemia Performed By: #### L IPID, TSH3, CBC, CMP #### [facility] [address] NRBC% 0.1 /100{WBC} Normal 0-0.5 [facility] Comment on above: Order Comment: Reaso n for Exam Hyperlipidemia Performed By: #### L IPID, TSH3, CBC, CMP #### [facility] [address] Platelet mean volume (Bld) [Entitic vol] 9.7 fL Normal 6.3-10.7 [facility] Comment on above: Order Comment: Reaso n for Exam Hyperlipidemia Performed By: #### L IPID, TSH3, CBC, CMP #### [place] [address] [place] Platelets (Bld) [#/Vol] 196 10*3/uL Normal 150-450 [facility] Comment on above: Order Comment: Reaso n for Exam Hyperlipidemia Performed By: #### L IPID, TSH3, CBC, CMP #### [facility] [address] [place] [address] [place] RBC (Bld) [#/Vol] 4.86 10*6/uL Normal 3.60-5.00 [facility] Comment on above: Order Comment: Reaso n for Exam Hyperlipidemia Performed By: #### L IPID, TSH3, CBC, CMP #### [address] WBC (Bld) [#/Vol] 5.7 10*3/uL Normal 3.8-11.6 [facility] Comment on above: Order Comment: Reaso n for Exam Hyperlipidemia Performed By: #### L IPID, TSH3, CBC, CMP #### [facility] [address] [place] [address] Comprehensive Metabolic Pane [place] 10-30-2022 Albumin [Mass/Vol] 3.6 g/dL Normal 3.5-5.7 [facility] Comment on above: Order Comment: Reaso n for Exam Hyperlipidemia Performed By: #### L IPID, TSH3, CBC, CMP #### [facility] [address] [place] [address] [place] Albumin/Globulin [Mass ratio] 1.2 {ratio} Normal [facility] Comment on above: Order Comment: Reaso n for Exam Hyperlipidemia Performed By: #### L IPID, TSH3, CBC, CMP #### [facility] [address] [place] [address] [place] ALP [Catalytic activity/Vol] 102 U/L Normal 34-104 [facility] Comment on above: Order Comment: Reaso n for Exam Hyperlipidemia Performed By: #### L IPID, TSH3, CBC, CMP #### [facility] [address] [place] [address] ALT [Catalytic activity/Vol] 14 U/L Normal 7-52 [facility] Comment on above: Order Comment: Reaso n for Exam Hyperlipidemia Performed By: #### L IPID, TSH3, CBC, CMP #### [facility] [address] [place] [address] [place] Anion gap [Moles/Vol] 9.0 mmol/L Normal 6.0-15.0 [facility] Comment on above: Order Comment: Reaso n for Exam Hyperlipidemia Performed By: #### L IPID, TSH3, CBC, CMP #### [facility] [address] [place] [address] [place] AST [Catalytic activity/Vol] 18 U/L Normal 13-39 [facility] Comment on above: Order Comment: Reaso n for Exam Hyperlipidemia Performed By: #### L IPID, TSH3, CBC, CMP #### [facility] [address] [place] [address] [place] Bilirubin [Mass/Vol] 0.5 mg/dL Normal 0.3-1.0 [facility] Comment on above: Order Comment: Reaso n for Exam Hyperlipidemia Performed By: #### L IPID, TSH3, CBC, CMP #### [facility] [address] [place] [address] [place] Calcium [Mass/Vol] 9.0 mg/dL Normal 8.6-10.3 [facility] Comment on above: Order Comment: Reaso n for Exam Hyperlipidemia Performed By: #### L IPID, TSH3, CBC, CMP #### [facility] [address] Chloride [Moles/Vol] 106 mmol/L Normal 98-107 [facility] Comment on above: Order Comment: Reaso n for Exam Hyperlipidemia Performed By: #### L IPID, TSH3, CBC, CMP #### [facility] [address] [place] [address] [place] CO2 [Moles/Vol] 30.8 mmol/L Normal 21.0-31.0 [facility] Comment on above: Order Comment: Reaso n for Exam Hyperlipidemia Performed By: #### L IPID, TSH3, CBC, CMP #### [address] Creatinine [Mass/Vol] 0.75 mg/dL Normal 0.60-1.20 [facility] Comment on above: Order Comment: Reaso n for Exam Hyperlipidemia Performed By: #### L IPID, TSH3, CBC, CMP #### [place] [address] [place] GFR/1.73 sq M.predicted MDRD (S/P/Bld) [Vol rate/Area] mL/min/{1.73_m2} Normal [facility] Comment on above: Order Comment: Reaso n for Exam Hyperlipidemia Performed By: #### L IPID, TSH3, CBC, CMP #### [facility] [address] [place] [address] [place] Globulin (S) [Mass/Vol] 2.9 g/dL Normal T [facility] Comment on above: Order Comment: Reaso n for Exam Hyperlipidemia Performed By: #### L IPID, TSH3, CBC, CMP #### [facility] [address] [place] [address] [place] Glucose [Mass/Vol] 92 mg/dL Normal 70-100 [facility] Comment on above: Order Comment: Reaso n for Exam Hyperlipidemia Result Comment: [place] Glucose Reference Range is dependent on time and content of last meal. Glucose of more than 200 mg/dL in a nonstressed, ambulatory subject supports the diagnosis of Diabetes Mellitus. ADA recommended reference range Performed By: #### L IPID, TSH3, CBC, CMP #### [facility] [address] Potassium [Moles/Vol] 4.8 mmol/L Normal 3.5-5.1 [facility] Comment on above: Order Comment: Reaso n for Exam Hyperlipidemia Performed By: #### L IPID, TSH3, CBC, CMP #### [facility] [address] Protein [Mass/Vol] 6.5 g/dL Normal 6.4-8.9 [facility] Comment on above: Order Comment: Reaso n for Exam Hyperlipidemia Performed By: #### L IPID, TSH3, CBC, CMP #### [address] Sodium [Moles/Vol] 141 mmol/L Normal 136-145 [facility] Comment on above: Order Comment: Reaso n for Exam Hyperlipidemia Performed By: #### L IPID, TSH3, CBC, CMP #### [address] Urea nitrogen [Mass/Vol] 18 mg/dL Normal 7-25 [facility] Comment on above: Order Comment: Reaso n for Exam Hyperlipidemia Performed By: #### L IPID, TSH3, CBC, CMP #### [address] Lipid Panelon 10-30-2022 Cholesterol [Mass/Vol] 218 mg/dL High 140-200 [facility] e [facility] Comment on above: Order Comment: Reaso n for Exam Hyperlipidemia Result Comment: Chol less than 200 mg/dl low risk Chol 201-239 mg/dl borderline risk Chol 240 mg/dl and greater high risk Performed By: #### L IPID, TSH3, CBC, CMP #### [address] Cholesterol in HDL [Mass/Vol] 51 mg/dL Normal 35-85 [facility] Comment on above: Order Comment: Reaso n for Exam Hyperlipidemia Result Comment: HDL CHOL ATP-III CLASSIFICATION Cardiovascular Risk HDL > or equal to 60 mg/dL LOW HDL < 40 mg/dL HIGH Performed By: #### L IPID, TSH3, CBC, CMP #### [facility] [address] [place] [address] [facility] Cholesterol.total/Araceli sterol in HDL [Mass ratio] 4.3 {ratio} Normal <5.0 [facility] Comment on above: Order Comment: Reaso n for Exam Hyperlipidemia Performed By: #### L IPID, TSH3, CBC, CMP #### [facility] [address] [place] [address] [facility] LDL Cholesterol,Calculated 151 mg/dL High 0-[address] [facility] Comment on above: Order Comment: Reaso n for Exam Hyperlipidemia Result Comment: LDL ATP III CLASSIFICATION LDL less than 100 mg/dL Optimal LDL 100-129 mg/dL Near or above optimal LDL 130-159 mg/dL Borderline high LDL 160-189 mg/dL High LDL greater than 189 mg/dL Very high Performed By: #### L IPID, TSH3, CBC, CMP #### [facility] [address] [id number] [facility] Triglyceride w/Reflex 78 mg/dL Normal 0-149 [facility] Comment on above: Order Comment: Reaso n for Exam Hyperlipidemia Result Comment: TRIG ATP III CLASSIFICATION TRIG less than 150 mg/dL Normal TRIG 150-199 mg/dL Borderline high TRIG 200-500 mg/dL High TRIG greater than 500 mg/dL Very high Standard traceable to the Center for Disease Conrtrol and Prevention (CDC) test method. Performed By: #### L IPID, TSH3, CBC, CMP #### [facility] [address] [place] [address] [facility] VLDL CHOLESTEROL 15 mg/dL Normal [facility] Comment on above: Order Comment: Reaso n for Exam Hyperlipidemia Performed By: #### L IPID, TSH3, CBC, CMP #### [facility] [address] [place] [address] [place] Thyroid Stimulating Hormoneo n 10-30-2022 TSH Qn 1.72 m[IU]/L Normal 0.45-5.33 [facility] Comment on above: Order Comment: Reaso n for Exam Hyperlipidemia Result Comment: PERF ORMED BY: [place] [address] PATHOLOGIST WEB DEVELOPMENT DIRECTOR BEV TALBERT M.D. Performed By: #### L IPID, TSH3, CBC, CMP #### [facility] [address] Albumin [Mass/volume] in Ser um or PlasmaOrdered By: Prem Goel on 04-29-2022 Albumin [Mass/Vol] 3.4 g/dL 3.2-5.5 [facility] Basophils Auto (Bld) [#/Vol] Ordered By: Prem Goel on 04-29-2022 Basophils (Bld) [#/Vol] 0.0 10*3/uL 0.0-0.2 [facility] Basophils/100 WBC Auto (Bld) Ordered By: Prem Goel on 04-29-2022 Basophils/100 WBC (Bld) 0.3 % . [facility] Cholesterol [Mass/volume] in Serum or PlasmaOrdered By: Prem Goel on 04-29-2022 Cholesterol [Mass/Vol] 196 mg/dL 140-200 [facility] Comment on above: Chol less than 200 m g/dl low riskChol 201-239 mg/dl borderline riskChol 240 mg/dl and greater high risk Cholesterol in LDL Calc [Mas s/Vol]Ordered By: Prem Goel on 04-29-2022 Cholesterol in LDL [Mass/Vol] 109 mg/dL 0-100 [facility] Comment on above: LDL ATP III CLASSIFI CATIONLDL less than 100 mg/dL OptimalLDL 100-129 mg/dL Near or above optimalLDL 130-159 mg/dL Borderline highLDL 160-189 mg/dL HighLDL greater than 189 mg/dL Very high Cholesterol in VLDL Calc [Ma ss/Vol]Ordered By: Prem Goel on 04-29-2022 Cholesterol in VLDL [Mass/Vol] 10 mg/dL [facility] Creatinine and Glomerular fi ltration rate.predicted panel (S/P/Bld)Ordered By: Prem Goel on 04-29-2022 Creatinine [Mass/Vol] 0.80 mg/dL 0.44-1.03 [facility] Eosinophils Auto (Bld) [#/Vo l]Ordered By: Prem Goel on 04-29-2022 Eosinophils (Bld) [#/Vol] 0.1 10*3/uL 0.0-0.45 [facility] Eosinophils/100 WBC Auto (Bl d)Ordered By: Prem Goel on 04-29-2022 Eosinophils/100 WBC (Bld) 0.5 % . [facility] Erythrocyte distribution wid th Auto (RBC) [Ratio]Ordered By: Prem Goel on 04-29-2022 Erythrocyte distribution width (RBC) [Ratio] 13.4 % 11.9-15.3 [facility] Estimated glomerular filtrat ion rate (GFR) non- AmericanOrdered By: Prem Goel on 04-29-2022 GFR/1.73 sq M.predicted among non-blacks MDRD (S/P/Bld) [Vol rate/Area] > 60 mL/Min [facility] Globulin Calc (S) [Mass/Vol] Ordered By: Prem Goel on 04-29-2022 Globulin (S) [Mass/Vol] 3.3 g/dL [facility] Hematocrit Auto (Bld) [Volum e fraction]Ordered By: Prem Goel on 04-29-2022 Hematocrit (Bld) [Volume fraction] 46.2 % 34.0-46.4 [facility] Hemoglobin [Mass/volume] in BloodOrdered By: Prem Goel on 04-29-2022 Hemoglobin (Bld) [Mass/Vol] 14.9 g/dL 11.8-15.4 [facility] Laboratory - Hematology and Cell countsOrdered By: Prem Goel on 04-29-2022 Nucleated RBC/100 WBC (Bld) [Ratio] 0.0 % 0-0.5 [facility] Leukocytes [#/volume] in Blo od by Automated countOrdered By: Prem Goel on 04-29-2022 WBC (Bld) [#/Vol] 10.7 10*3/uL 4.5-11.[address] [facility] Lymphocytes Auto (Bld) [#/Vo l]Ordered By: Prem Goel on 04-29-2022 Lymphocytes (Bld) [#/Vol] 1.9 10*3/uL 1.00-4.8 [facility] Lymphocytes/100 WBC Auto (Bl d)Ordered By: Prem Goel on 04-29-2022 Lymphocytes/100 WBC (Bld) 17.7 % . [facility] MCH Auto (RBC) [Entitic mass ]Ordered By: Prem Goel on 04-29-2022 MCH (RBC) [Entitic mass] 30.0 pg 24.7-34.3 [facility] MCHC Auto (RBC) [Mass/Vol]Or dered By: Prem Goel on 04-29-2022 MCHC (RBC) [Mass/Vol] 32.1 g/dL 32.0-35.0 [facility] MCV Auto (RBC) [Entitic vol] Ordered By: Prem Goel on 04-29-2022 MCV (RBC) [Entitic vol] 93.4 fL 80-100 [facility] Monocytes Auto (Bld) [#/Vol] Ordered By: Prem Goel on 04-29-2022 Monocytes (Bld) [#/Vol] 1.1 10*3/uL 0.0-0.8 [facility] Monocytes/100 WBC Auto (Bld) Ordered By: Prem Goel on 04-29-2022 Monocytes/100 WBC (Bld) 10.4 % . [facility] Neutrophils Auto (Bld) [#/Vo l]Ordered By: Prem Goel on 04-29-2022 Neutrophils (Bld) [#/Vol] 7.6 10*3/uL 1.8-7.7 [facility] Neutrophils/100 WBC Auto (Bl d)Ordered By: Prem Goel on 04-29-2022 Neutrophils/100 WBC (Bld) 71.1 % . [facility] No Panel InformationOrdered By: Prem Goel on 04-29-2022 Estimated GFR () > 60 mL/Min [facility] Comment on above: GFR estimated refere nce range: According to KDOQI guidelines, <60 ml/min/1.73m2 is sufficient to diagnose a patient with chronic kidney disease. Pharmacy Creatinine Clearance (Chem N/A [facility] Platelet mean volume Auto (B ld) [Entitic vol]Ordered By: Prem Goel on 04-29-2022 Platelet mean volume (Bld) [Entitic vol] 10.2 fL 6.3-10.7 [facility] Platelets Auto (Bld) [#/Vol] Ordered By: Prem Goel on 04-29-2022 Platelets (Bld) [#/Vol] 238 10*3/uL 150-450 [facility] Protein [Mass/volume] in Ser um or PlasmaOrdered By: Prem Goel on 04-29-2022 Protein [Mass/Vol] 6.7 g/dL 6.1-7.9 [facility] RBC Auto (Bld) [#/Vol]Ordere d By: Prem Goel on 04-29-2022 RBC (Bld) [#/Vol] 4.95 10*6/uL 3.60-5.[address] [facility] Serum or plasma alanine tobias otransferase measurement without P-5'-P (enzymatic activiOrdered By: Prem Goel on 04-29-2022 ALT No additional P-5'-P [Catalytic activity/Vol] 18 U/L [facility] Serum or plasma albumin/glob ulin mass ratioOrdered By: Prem Goel on 04-29-2022 Albumin/Globulin [Mass ratio] 1.0 {ratio} [facility] Serum or plasma alkaline joshua sphatase measurement (enzymatic activity/volume)Ordered By: Prem Goel on 04-29-2022 ALP [Catalytic activity/Vol] 100 U/L 32-92 [facility] Serum or plasma anion gap de terminationOrdered By: Prem Goel on 04-29-2022 Anion gap [Moles/Vol] 10.5 mmol/L 6.0-15.0 [facility] Serum or plasma aspartate am inotransferase measurement (enzymatic activity/volume)Ordered By: Prem Goel on 04-29-2022 AST [Catalytic activity/Vol] 19 U/L [facility] Serum or plasma calcium erica urement (mass/volume)Ordered By: Prem Goel on 04-29-2022 Calcium [Mass/Vol] 9.2 mg/dL 8.2-10.2 [facility] Serum or plasma chloride omaira surement (moles/volume)Ordered By: Prem Goel on 04-29-2022 Chloride [Moles/Vol] 102 mmol/L 95-114 [facility] Serum or plasma glucose erica urement (mass/volume)Ordered By: Prem Goel on 04-29-2022 Glucose [Mass/Vol] 111 mg/dL 70-100 [facility] Comment on above: ADA recommended refe rence rangeRandom Glucose Reference Range is dependent on time and content of last meal. Glucose of more than 200 mg/dL in a nonstressed, ambulatory subject supports the diagnosis of Diabetes Mellitus. Serum or plasma high density lipoprotein (HDL) cholesterol measurementOrdered By: Prem Goel on 04-29-2022 Cholesterol in HDL [Mass/Vol] 76 mg/dL 35-85 [facility] Comment on above: HDL CHOL ATP-III CLA SSIFICATION Cardiovascular RiskHDL > or equal to 60 mg/dL LOWHDL < 40 mg/dL HIGH Serum or plasma potassium me asurement (moles/volume)Ordered By: Prem Goel on 04-29-2022 Potassium [Moles/Vol] 4.0 mmol/L 3.5-5.1 [facility] Serum or plasma sodium measu rement (moles/volume)Ordered By: Prem Goel on 04-29-2022 Sodium [Moles/Vol] 137 mmol/L 136-146 [facility] Serum or plasma total biliru bin measurement (mass/volume)Ordered By: Prem Goel on 04-29-2022 Bilirubin [Mass/Vol] 0.8 mg/dL 0.3-1.2 [facility] Serum or plasma total carbon dioxide measurement (moles/volume)Ordered By: Prem Goel on 04-29-2022 CO2 [Moles/Vol] 28.5 mmol/L 22.0-30.0 [facility] Serum or plasma total choles terol/high density lipoprotein (HDL) cholesterol mass ratOrdered By: Prem Goel on 04-29-2022 Cholesterol.total/Araceli sterol in HDL [Mass ratio] 2.6 {ratio} <5.0 [facility] Serum or plasma urea nitroge n measurement (mass/volume)Ordered By: Prem Goel on 04-29-2022 Urea nitrogen [Mass/Vol] 14 mg/dL 02-28 [facility] TSH DL <= 0.005 mIU/L QnOrde red By: Prem Goel on 04-29-2022 TSH Qn 1.74 m[IU]/L 0.45-5.33 [facility] Triglyceride [Mass/volume] i n Serum or PlasmaOrdered By: Prem Goel on 04-29-2022 Triglyceride [Mass/Vol] 53 mg/dL 35-149 [facility] Comment on above: TRIG ATP III CLASSIF ICATIONTRIG less than 150 mg/dL NormalTRIG 150-199 mg/dL Borderline highTRIG 200-500 mg/dL High TRIG greater than 500 mg/dL Very highStandard traceable to the Center for Disease Conrtrol and Prevention (CDC) test method. A1C HEMOGLOBINon 04-30-2021 HbA1c (Bld) [Mass fraction] 5.8 % Immunovaccine [facility] [employer] Other HbA1c (Bld) [Mass fraction]o n 04-30-2021 A1C HEMOGLOBIN [facility] [employer] Other [facility] CARDIAC STRESS/REST (DOUGLAS CARDIAL PERFUSION/MIBI)on 04-09-2020 [facility] CARDIAC STRESS/REST (MYOCARDIAL PERFUSION/MIBI) Patient Name: MARY WILKERSON STUDY: MYOCARDIAL PERFUSION STRESS TEST WITH LEXISCAN Performing facility: [facility], [address] [place] [address], Suite [facility], [address] Provider: WP SMYTH PCP: Dr. PREM GOEL Supervising provider: WP SMYTH INDICATION: CP HISTORY: Gender: F; Age: 84 y/o ; Height: 157.48 cm; Weight: 78.1668068 kg. High Cholesterol; CP Family HX CAD; Denies smoking. COMPARISON: Previous nuclear testing completed at [facility]. ACCESSION NUMBER(S): [id number] ORDERING CLINICIAN: MATT SMYTH TECHNIQUE: ONE DAY [...] Electronically signed by: BRIELLE DUVAL MD Normal [facility] CARDIAC STRESS/REST INJE CTIONon 04-09-2020 [facility] CARDIAC STRESS/REST INJECTION Patient Name: MARY WILKERSON STUDY: MYOCARDIAL PERFUSION STRESS TEST WITH LEXISCAN Performing facility: [facility], [address] [place] [address], [address], [address] Provider: WP SMYTH PCP: Dr. PREM GOEL Supervising provider: WP SMYTH INDICATION: CP HISTORY: Gender: F; Age: 84 y/o ; Height: 157.48 cm; Weight: 78.0170117 kg. High Cholesterol; CP Family HX CAD; Denies smoking. COMPARISON: Previous nuclear testing completed at [facility]. ACCESSION NUMBER(S): [id number] ORDERING CLINICIAN: MATT SMYTH TECHNIQUE: ONE DAY [...] by: BRIELLE DUVAL MD [facility] PART 2 STRESS OR REST (N O CHARGE)on 04-09-2020 [facility] PART 2 STRESS OR REST (NO CHARGE) Patient Name: MARY WILKERSON STUDY: MYOCARDIAL PERFUSION STRESS TEST WITH LEXISCAN Performing facility: [facility], [address] [place] [address], [address], [address] Provider: WP SMYTH PCP: Dr. PREM GOEL Supervising provider: WP SMYTH INDICATION: CP HISTORY: Gender: F; Age: 84 y/o ; Height: 157.48 cm; Weight: 78.1155563 kg. High Cholesterol; CP Family HX CAD; Denies smoking. COMPARISON: Previous nuclear testing completed at [facility]. ACCESSION NUMBER(S): [id number] ORDERING CLINICIAN: MATT SMYTH TECHNIQUE: ONE DAY [...] Electronically signed by: BRIELLE DUVAL MD Normal [facility] Vital Signs Date Time Vital Sign Value Performing Clinician Facility 09-24-2023 09:41-0400 Body height 154.94 cm DO [employer] Work Phone: [facility] 09-24-2023 09:41-0400 Body mass index (BMI) [Ratio] 30.9 kg/m2 DO [employer] Work Phone: [facility] 09-24-2023 09:41-0400 Body weight 74.38 kg DO Prem [employer] Work Phone: [facility] 09-24-2023 09:41-0400 Diastolic blood pressure 80 mm[Hg] DO Prem Kuns Work Phone: [facility] 09-24-2023 09:41-0400 Heart rate 57 /min DO Prem Kuns Work Phone: [facility] 09-24-2023 09:41-0400 Respiratory rate 16 /min DO Prem Kuns Work Phone: [facility] 09-24-2023 09:41-0400 SaO2% (BldA) [Mass fraction] 92 % DO Prem Kuns Work Phone: [facility] 09-24-2023 09:41-0400 Systolic blood pressure 138 mm[Hg] DO Prem Kuns Work Phone: [facility] 03-17-2023 08:45-0400 Body height 154.94 cm Premsaloni Cabezass Other [employer] Other 03-17-2023 08:45-0400 Body mass index (BMI) [Ratio] 30.98 kg/m2 Prem Raulitos Other [employer] Other 03-17-2023 08:45-0400 Body weight 74.39 kg Prem Raulitos Other [employer] Other 03-17-2023 08:45-0400 Diastolic blood pressure 76 mm[Hg] Prem Raulitos Other [employer] Other 03-17-2023 08:45-0400 Respiratory rate 16 /min Prem [employer]CM[employer] Other [employer] Other 03-17-2023 08:45-0400 SaO2% (BldA) [Mass fraction] 96 % Prem Raulitos Other [employer] Other 03-17-2023 08:45-0400 Systolic blood pressure 120 mm[Hg] Prem Kuns Other [employer] Other 11-12-2022 14:45-0400 Body height 154.94 cm Prem Kuns Other [employer] Other 11-12-2022 14:45-0400 Body mass index (BMI) [Ratio] 31.36 kg/m2 Prem Kuns Other [employer] Other 11-12-2022 14:45-0400 Body weight 75.3 kg Prem Kuns Other [employer] Other 11-12-2022 14:45-0400 Diastolic blood pressure 68 mm[Hg] Prem Kuns Other [employer] Other 11-12-2022 14:45-0400 Respiratory rate 16 /min Prem Kuns Other [employer] Other 11-12-2022 14:45-0400 SaO2% (BldA) [Mass fraction] 93 % Prem Kuns Other [employer] Other 11-12-2022 14:45-0400 Systolic blood pressure 124 mm[Hg] Prem Kuns Other [employer] Other 01-28-2022 11:15-0400 Body height 154.94 cm Prem Kuns Other [employer] Other 01-28-2022 11:15-0400 Body mass index (BMI) [Ratio] 30.98 kg/m2 Prem Kuns Other [employer] Other 01-28-2022 11:15-0400 Body weight 74.39 kg Prem Kuns Other [employer] Other 01-28-2022 11:15-0400 Diastolic blood pressure 82 mm[Hg] Prem Kuns Other [employer] Other 01-28-2022 11:15-0400 Respiratory rate 18 /min Prem Kuns Other [employer] Other 01-28-2022 11:15-0400 SaO2% (BldA) [Mass fraction] 95 % Prem Kuns Other [employer] Other 01-28-2022 11:15-0400 Systolic blood pressure 142 mm[Hg] Prem Kuns Other [employer] Other 08-15-2021 14:45-0500 Body height 154.94 cm Prem Kuns Other [employer] Other 08-15-2021 14:45-0500 Body mass index (BMI) [Ratio] 30.04 kg/m2 Prem Kuns Other [employer] Other 08-15-2021 14:45-0500 Body weight 72.12 kg Prem Kuns Other [employer] Other 08-15-2021 14:45-0500 Diastolic blood pressure 80 mm[Hg] Prem Kuns Other [employer] Other 08-15-2021 14:45-0500 Respiratory rate 16 /min Prem Kuns Other [employer] Other 08-15-2021 14:45-0500 SaO2% (BldA) [Mass fraction] 99 % Prem Kuns Other [employer] Other 08-15-2021 14:45-0500 Systolic blood pressure 142 mm[Hg] Prem Kuns Other [employer] Other 04-30-2021 11:45-0500 Body height 154.94 cm Prem Kuns Other [employer] Other 04-30-2021 11:45-0500 Body mass index (BMI) [Ratio] 29.74 kg/m2 Prem Kuns Other [employer] Other 04-30-2021 11:45-0500 Body weight 71.4 kg Prem Kuns Other [employer] Other 04-30-2021 11:45-0500 Diastolic blood pressure 87 mm[Hg] Prem Kuns Other [employer] Other 04-30-2021 11:45-0500 Respiratory rate 18 /min Prem Kuns Other [employer] Other 04-30-2021 11:45-0500 SaO2% (BldA) [Mass fraction] 93 % Prem Kuns Other [employer] Other 04-30-2021 11:45-0500 Systolic blood pressure 136 mm[Hg] Prem Kuns Other [employer] Other 02-28-2021 11:15-0400 Body height 154.94 cm Prem Kuns Other [employer] Other 02-28-2021 11:15-0400 Body mass index (BMI) [Ratio] 29.85 kg/m2 Prem Raulitos Other [employer] Other 02-28-2021 11:15-0400 Body weight 71.67 kg Prem Kuns Other [employer] Other 02-28-2021 11:15-0400 Diastolic blood pressure 86 mm[Hg] Prem Kuns Other [employer] Other 02-28-2021 11:15-0400 Respiratory rate 16 /min Prem Kuns Other [employer] Other 02-28-2021 11:15-0400 SaO2% (BldA) [Mass fraction] 97 % Prem Raulitos Other [employer] Other 02-28-2021 11:15-0400 Systolic blood pressure 134 mm[Hg] Prem Raulitos Other [employer] Other Encounters Encounter Date Encounter Type Care Provider Facility Start: 10-12-2023 End: 10-12-2023 ambulatory DO Prem Kuns Work Phone: [facility] Work Phone: Start: 10-12-2023 End: 10-12-2023 Patient encounter procedure DO Prem Kuns Work Phone: [facility] [place] Work Phone: Start: 10-06-2023 End: 10-06-2023 ambulatory Prem Kuns Facility:[facility] Start: 10-06-2023 End: 10-06-2023 ambulatory DO Prem Kuns Work Phone: [facility] Work Phone: Start: 10-06-2023 End: 10-06-2023 Patient encounter procedure DO Prem Kuns Work Phone: [facility] Work Phone: Start: 09-24-2023 End: 09-24-2023 ambulatory DO Prem Kuns Work Phone: [facility] Work Phone: Start: 09-24-2023 End: 09-24-2023 Patient encounter procedure DO Prem Kuns Work Phone: [facility] [place] Work Phone: Start: 09-18-2023 End: 09-18-2023 ambulatory Prem Kuns Facility:[facility] Start: 09-18-2023 End: 09-18-2023 ambulatory DO Prem Kuns Work Phone: [facility] Work Phone: Start: 09-18-2023 End: 09-18-2023 Patient encounter procedure DO Prem Kuns Work Phone: [facility] [place] Work Phone: Start: 08-11-2023 Non-patient / Non-visit DO Prem Kuns Work Phone: [facility] Work Phone: Start: 08-07-2023 Non-patient / Non-visit DO Prem Kuns Work Phone: [facility] Work Phone: Start: 08-03-2023 Non-patient / Non-visit DO Prem Kuns Work Phone: [facility] Work Phone: Start: 05-27-2023 End: 05-27-2023 ambulatory Prem Kuns Other [employer] Other Start: 05-27-2023 Telephone encounter Prem Kuns [facility] [place] Start: 03-17-2023 End: 03-17-2023 ambulatory Prem Kuns Other [employer] Other Start: 03-17-2023 Office outpatient visit 25 minutes Prem Kuns [facility] Start: 03-12-2023 End: 03-12-2023 ambulatory Prem Kuns Facility:[facility] Start: 03-12-2023 End: 03-12-2023 ambulatory DO Prem Kuns Work Phone: [facility] Work Phone: Start: 03-12-2023 End: 03-12-2023 Patient encounter procedure DO Prem Kuns Work Phone: [facility] [place] Work Phone: Start: 01-30-2023 End: 01-30-2023 ambulatory Prem Kuns Other [employer] Other Start: 01-30-2023 Telephone encounter Prem Kuns [facility] Start: 11-12-2022 End: 11-12-2022 ambulatory Prem Kuns Other [employer] Other Start: 11-12-2022 Office outpatient visit 25 minutes Prem Kuns [facility] Start: 11-04-2022 End: 11-04-[address] PREMSALONI GOEL Facility:[facility] Start: 11-04-2022 Telephone encounter Prem Kuns [facility] Start: 10-30-2022 End: 10-30-2022 ambulatory Prem Kuns Facility:[facility] Start: 10-14-2022 End: 10-14-[address] PREM GOEL Facility:[facility] Start: 10-02-2022 End: 10-03-2022 ambulatory NARENDRANATH LAKSHMIPATHY . Facility:[facility] Start: 09-09-2022 End: 09-09-[address] PREM GOEL Facility:[facility] Start: 09-04-2022 End: 09-05-[address] PREM GOEL Facility:[facility] Start: 08-19-2022 End: 08-19-[address] BILL RAMOS Facility:[facility] Start: 07-22-2022 End: 07-23-[address] PREM GOEL Facility:[facility] Start: 05-08-2022 End: 05-09-2022 ambulatory AIXA RODRIGUEZIS . Facility:[facility] Start: 05-06-2022 Annual wellness visit Prem arevalo Other [employer] Other Start: 04-29-2022 End: 04-29-2022 ambulatory DO Prem Goel Work Phone: [facility] Work Phone: Start: 04-29-2022 End: 04-29-2022 Patient encounter procedure DO Prem Goel Work Phone: [facility] [place] Start: 03-06-2022 End: 03-07-[address] KHOA RAMOS . Facility: Start: 02-27-2022 End: 02-27-2022 ambulatory Prem Goel Other [employer] Other Start: 02-27-2022 Telephone encounter Prem Goel [facility] Start: 02-18-2022 End: 02-18-[address] KHOA RAMOS . Facility:[facility] Start: 01-28-2022 End: 01-28-2022 ambulatory Prem Goel Other [employer] Other Start: 01-28-2022 Office outpatient visit 15 minutes Prem Goel [facility] Start: 01-21-2022 End: 01-22-[address] KHOA RAMOS . Facility:[facility] Start: 12-02-2021 End: 12-02-2021 ambulatory Prem Kuns Other [employer] Other Start: 12-02-2021 Telephone encounter Prem Kuns [facility] [place] Start: 11-28-2021 End: 11-28-2021 ambulatory Prem Kuns Other [employer] Other Start: 11-28-2021 Telephone encounter Prem Kuns [facility] [place] Start: 10-02-2021 End: 10-02-2021 ambulatory Prem Kuns Other [employer] Other Start: 10-02-2021 Telephone encounter Prem Kuns [facility] [place] Start: 09-10-2021 End: 09-10-2021 ambulatory Prem Kuns Other [employer] Other Start: 09-10-2021 Telephone encounter Prem Kuns [facility] [place] Start: 08-15-2021 End: 08-15-2021 ambulatory Prem Kuns Other [employer] Other Start: 08-15-2021 Office outpatient visit 25 minutes Prem Kuns [facility] [place] Start: 08-12-2021 End: 08-12-2021 ambulatory Prem Kuns Other [employer] Other Start: 08-12-2021 Telephone encounter Prem Kuns [facility] Start: 06-13-2021 End: 06-13-2021 ambulatory Prem Kuns Other [employer] Other Start: 06-13-2021 Telephone encounter Prem Kuns [facility] [place] Start: 04-30-2021 End: 04-30-2021 ambulatory Prem Kuns Other [employer] Other Start: 04-30-2021 Office outpatient visit 25 minutes Prem Raymon [facility] Start: 02-28-2021 End: 02-28-2021 ambulatory Prem Goel Other [employer] Other Start: 02-28-2021 Patient encounter procedure Prem Raulitoeddie [facility] Start: 08-18-2019 Annual wellness visit Prem arevalo Other Immunovaccine [facility] [employer] Other Plan of Treatment Date Care Activity Detail Author Glucose measurement estimated from glycated hemoglobin [facility] enter Glucose measurement estimated from glycated hemoglobin [facility] enter [facility] Immunizations Immunization Date Immunization Notes Care Provider Fa cility 06-13-2021 COVID-19 Vaccine Pfizer - Documentation Purposes Only Premsaloni Cabezass Other [facility] 07-19-2020 COVID-19 Vaccine Pfizer - Documentation Purposes Only Prem Kuns Other [facility] 06-29-2020 COVID-19 Vaccine Pfizer - Documentation Purposes Only Prem Raulitos Other [facility] NEGATED: Highlighted row has not occurred!05-06-2022 influenza, seasonal, injectable Patient Objection Premsaloni Cabezass Other Immunovaccine [facility] [employer] Other NEGATED: Highlighted row has not occurred!05-06-2022 Prevnar 20 Patient Objection Prem Kuns Other [facility] NEGATED: Highlighted row has not occurred!02-17-2019 influenza, seasonal, injectable Patient Objection Prem Kuns Other [employer] Other NEGATED: Highlighted row has not occurred!04-07-2017 influenza, seasonal, injectable Patient Objection Prem Kuns Other [employer] Other Payers Date Payer Category Payer Self-pay [id number] 1957 Private Health Insurance [id number] 1937 Unknown [id number] 1937 Unknown [id number] 2.16.840.1.691706.3.579.2.593 1937 Unknown [id number] 2.16.840.1.773797.3.579.2.593 1937 Unknown [id number] 2.16.840.1.560852.3.579.2.593 1937 Unknown [id number] 2.16.840.1.430593.3.579.2.593 1937 Unknown [id number] 2.16.840.1.434816.3.579.2.593 1937 Unknown [id number] 2.16.840.1.963036.3.579.2.593 1937 Unknown [id number] 2.16.840.1.648173.3.579.2.593 1937 Unknown [id number] 2.16.840.1.466382.3.579.2.593 1937 Unknown [id number] 2.16.840.1.201537.3.579.2.593 1937 Unknown [id number] 2.16.840.1.110267.3.579.2.593 Medicare Medicare [id number] Unknown [facility] Health Claims [id number] Unknown [id number] 2.16.840.1.237380.3.579.2.531 Unknown [id number] 2.16.840.1.185488.3.579.2.531 Unknown [id number] 2.16.840.1.678547.3.579.2.531 Unknown [id number] 2.16.840.1.956701.3.579.2.531 Social History Date Type Detail Facility Unknown if ever smoked [employer] Other Sex Assigned At Sex Assigned At Bir th [employer] Other Start: 03-28-2020 End: 07-02-2023 Tobacco smoking status NHIS Never smoked tobacco (finding) [facility] Start: 1935 Sex Assigned At Female F [facility] Clinical Notes 12-21-2007 to 03-17-2023 Note [...] exercise regimen; we will continue to monitor. [employer] Other 08-25-2023 Evaluation note* Encounter Date Diagnosis Assessment Notes Treatment Notes Treatment Clinical Notes Jan, Hyperlipidemia (ICD-10 - E78.5) [employer] Other 06-07-2023 Evaluation note* Encounter Date Diagnosis Assessment Notes Treatment Notes Treatment Clinical Notes Nov, Bronchopneumonia (ICD-10 - J18.0) [facility] ER records reviewed from both 11/06 [...] (ICD-10 - R59.0) Noted on imaging from [facility]. I do believe this is likely due to her being ill. She has never smoked. Discussed these findings with the and the patient if symptoms persist we may have pulmonary evaluation but at this time patient appears to be improving [employer] Other 04-27-2023 NoteCONSULTATION CONSULTATION DATE: 10/02/2022 TO: [...] our patients to inform us about any rgnx-cpr-hzriagm medications or herbal remedies/nutritional supplements/alternative remedies. 2. [...] treatment options with their primary care provider.[id number] Note CONSULTATION CONSULTATION DATE: 09/04/2022 TO: Dr. [...] mg pills, 1-2 at h.s. as tolerated.[facility] [id number] NoteCONSULTATION CONSULTATION DATE: 07/22/2022 CHIEF COMPLAINT: Right [...] her understand and would like to proceed,.[facility] 05-08-2022 NoteCONSULTATION CONSULTATION DATE: 05/08/2022 HISTORY [...] in three months' time unless otherwise indicated.[facility] [id number] NoteCONSULTATION CONSULTATION DATE: 03/06/2022 This is a [...] of care and all questions were answered.[facility] [id number] Evaluation note* Encounter Date Diagnosis Assessment Notes Treatment Notes Treatment Clinical Notes Feb, Hyperlipidemia (ICD-10 - E78.5) [employer] Other 08-23-2022 Evaluation note* Encounter Date Diagnosis [...] E78.5) Jan, Hyperglycemia (ICD-1 0 - R73.9) [employer] Other 08-16-2022 NoteCONSULTATION CONSULTATION DATE: 01/21/2022 CHIEF [...] regimen. The patient and her understand. CC: Adriana Eason.Sunil.[facility] [id number] NotePROCEDURE: Lyxia Signa HDXT 1.5 Sagittal T1, T2, STIR [...] and signed by Ralph Figueroa on 10/25/2021 1510[facility]03-10-2022 Evaluation note* Encounter Date Diagnosis Assessment [...] we will attempt to order an MRI. [employer] Other 01-06-2022 Evaluation note* Encounter Date Diagnosis Assessment Notes Treatment Notes Treatment Clinical Notes Jun, Hyperlipidemia (ICD-10 - E78.5) [employer] Other 11-23-2021 Evaluation note* Encounter Date Diagnosis [...] work-up i.e. CAT scan of her abdomen. [employer] Other 09-23-2021 Evaluation note* Encounter Date Diagnosis [...] monitor, a blood work order was provided. [employer] Other 07-15-2008 History general Narrative - Reported* Type Description Date Medical History Colonoscopy 12-21-07 Medical History Stress Test 01-18-[address] Scan Abdomen and Pelvis 06-07 Medical History Mammogram 2-11 Medical History Pap 1-10 Medical History 02/[place] [facility] [place] 10/13/13-mammogram at [facility] Medical History 12/2015 mammogram Medical History 12/2016 Mammogram Medical History 07/2019 Mammogram Medical History Cardiolite 04/09/20 Surgical History wisdom teeth Hospitalization History child [employer] Other 07-15-2008 History general Narrative - Reported* Type Description Date Medical History Colonoscopy 12-21-07 Medical History Stress Test 01-18-[address] Scan Abdomen and Pelvis 06-07 Medical History Mammogram 2-11 Medical History Pap 1-10 Medical History 02/2013 [facility] [place] History 10/13/13-mammogram at [facility] Medical History 12/2015 mammogram Medical History 12/2016 Mammogram Medical History 07/2019 Mammogram Medical History Cardiolite 04/09/20 Medical History hearing aids Surgical History wisdom teeth Hospitalization History child [facility] [employer] Other Evaluation noteNo InformationNort [employer] Other Evaluation noteNo assessment information available [facility] Work Phone: Evaluation note* Diagnosis Onset Date Resolution Status Degenerative disc disease, lumbar acute Encounter for subsequent [facility] wellness visit (AWV) in Medicare patient acute Fall acute Hyperlipidemia acute Lower extremity edema acute Prediabetes acute Screening mammogram for breast cancer acute Urinary incontinence acute [facility] Work Phone: Summary Purpose Family History Relationship [...] Screening mammogram for breast cancer Urinary incontinence Chief Complaint Amb Documentation Amb Documentation E78.5 R73.9 MEDICARE WELLNESS sub R60.0 E78.5 Reason for Visit Degenerative disc di sease, lumbar Encounter for subsequent annual wellness visit (AWV) in Medicare patient Fall Hyperlipidemia Lower extremity edema Prediabetes Screening mammogram for breast cancer Urinary incontinence Chief Complaint Amb Documentation Amb Documentation E78.5 R73.9 MEDICARE WELLNESS sub R60.0 E78.5 test for everything Reason for Visit Degenerative disc di sease, lumbar Encounter for subsequent annual wellness visit (AWV) in Medicare patient Fall Hyperlipidemia Lower extremity edema Prediabetes Screening mammogram for breast cancer Urinary incontinence Additional Source Comments INFORMATION SOURCE (unrecogn ized section and content) DATE CREATED AUTHOR 04/11/2020 [facility] DATE CREATED AUTHOR AUTHOR'S ORGANIZ ATION 10/27/2021 [facility] dical Specialist DATE CREATED AUTHOR AUTHOR'S ORGANIZ ATION 10/17/2022 [facility] DATE CREATED AUTHOR AUTHOR'S ORGANIZ ATION 10/07/2023 [facility] REASON FOR VISIT (unrecogniz ed section and content) refillMEDICARE WELLNESS SUBR efillsreview labs- hyperlipidemia managementRefillship/leg painhip and leg painClinicalRefill3 month Follow up right hp /legRefillsClinicalER FOLLOW UP JUAN C BRONCHITISRefills4 month Follow upRefills Care Teams (unrecognized sec tion and content) Team Status: Active Member Role Status Dates Prem Kuns , DO Primary Care Provider Active Team Status: Active Member Role Status Dates Prem Goel , DO Primary Care Provider Active Sta rt: August 03, 2023 Le Valenzuela LPN Attending Provider Active Sta rt: August 03, 2023 Team Status: Active Member Role Status Dates Prem Goel , DO Primary Care Provide r, Attending Provider Active Start: August 07, 2023 Team Status: Active Member Role Status Dates Prem Raymon , DO Primary Care Provider Active Sta rt: August 11, 2023 Le Valenzuela LPN Attending Provider Active Sta rt: August 11, 2023 Team Status: Inactive Member Role Status Dates Prem Raulitoeddie , DO Primary Care Provide r, Attending Provider Active Start: September 18, 2023 End: September 18, 2023 Team Status: Inactive Member Role Status Dates Prem Raymon , DO Primary Care Provider, Attending Provi alexey Active Team Status: Inactive Member Role Status Dates Prem Goel , DO Primary Care Provide r, Attending Provider Active Start: September 24, 2023 End: September 24, 2023 Team Status: Inactive Member Role Status Dates Prem Cabezaseddie , DO Primary Care Provide r, Attending Provider Active Start: October 06, 2023 End: October 06, 2023 Team Status: Inactive Member Role Status Dates Prem Goel , DO Primary Care Provide r, Attending Provider Active Start: October 12, 2023 End: October 12, 2023 Goals (unrecognized section and content) Goals [...] BE BASED ON THE PRIMARY CLINICAL RECORDS. [facility] [facility]. provides no warranty or guarantee of the accuracy or completeness of information in this document.
--- NOTE | 2023-11-11 10:56 | PM.CN ---
Consult Note: HPI Data of Consult Patient: known to practice within the last 3 years Requesting Physician: Mercy Pka NP Primary Care Provider: PREM GOEL Consult Narrative Reason for consult: f/u Narrative: Mary King is a pleasant 87 year old female who presents for evaluation of chronic right buttock and leg pain. Patient reporting ache intermittently. Pain today 6/10 worse with standing walking activity rolling over, improved with rest. Mild relief from aspirin, moderate relief from tylenol arthritis and ibuprofen. Patient reports PT was mild benefit. Patient was given tramadol 50mg Q6hrs for pain and found benefit but noticed drowsiness. Patient was recently evaluated by Dr Garza who started patient on zonegran 25mg HS with benefit. patient underwent L4-5 DERICK with significant improvement ongoing in functional ability and moderate improvement in pain. cc:: CC: Mercy Pak NP Review of Systems ROS Status of ROS 10 or more systems reviewed and unremarkable except as noted in history and below Musculoskeletal Reports: back pain PFSH PFSH Medical History Low back pain ?M54.50 - Low back pain, unspecified (ICD-10) Hearing deficit ?H91.90 - Unspecified hearing loss, unspecified ear (ICD-10) High cholesterol ?E78.00 - Pure hypercholesterolemia, unspecified (ICD-10) Surgical History H/O breast biopsy ?Z98.890 - Other specified postprocedural states (ICD-10) Family History Brother Family history of CHF (congestive heart failure) Social History Within the past year, how often did you have a drink containing alcohol: monthly or less Within the past year, how many standard drinks containing alcohol did you have on a typical day: 1 or 2 Within the past year, how often did you have six or more drinks on one occasion: less than monthly Total score: 1 Score interpretation: A score less than 3 is consistent with normal alcohol consumption. 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 Known occupational exposures/hazards: No Highest level of school completed/degree received: high school graduate Do you want help with school or training: No Are you now , , , , never or living with a partner: In a typical week, how many times do you talk on the telephone with family, friends, or neighbors: 3 or more times per week How often do you get together with friends or relatives: 3 or more times per week How often do you attend scientologist or uatsdin services: 4 or more times per year Do you belong to any clubs or organizations such as scientologist groups unions, [employer] or athletic groups, or school groups: no Total score: 3 Score interpretation: A score of greater than or equal to 2 indicates the lowest level of social isolation. Little interest or pleasure in doing things: several days Feeling down, depressed, or hopeless: several days Feel stressed/tense/nervous/anxious/difficulty sleeping: only a little Due to disability, difficulty making decisions: No Do you think of yourself as: straight/heterosexual Gender Identity: female Meds Home Medications and Allergies Home Medications ?Medication ?Instructions ?Recorded ?Confirmed ?Type aspirin 81 mg capsule 81 mg PO QDAY 11/06/22 10/27/23 History ezetimibe 10 mg tablet 10 mg PO QAM 11/06/22 10/27/23 History acetaminophen 650 mg 650 mg PO .QD 11/14/22 10/27/23 History tablet,extended release (Arthritis Pain Relief (acetaminophen) ER) tramadol 50 mg tablet 50 mg PO Q6H PRN pain 5 days #20 08/08/23 10/27/23 Rx tabs Allergies Allergy/AdvReac Type Severity Reaction Status Date / Time No Known Drug Allergies Allergy Verified 10/27/23 10:11 Exam Constitutional Documenting provider has reviewed patient's vital signs: yes Common normals: no apparent distress, oriented x3, healthy appearing, alert and well nourished General appearance: cooperative Nutritional appearance: overweight HENMT Common normals: normocephalic, hearing grossly normal bilaterally and moist oral mucous membranes Head and scalp: normocephalic Eye Common normals: PERRL Pupil: PERRL Neck & C-Spine Common normals: full ROM General: normal visual inspection Chest Common normals: inspection of chest normal Respiratory Common normals: normal respiratory effort, no retractions and no use of accessory muscles Back & Pelvis Thoracic spine/upper back: normal to inspection and thoracic ROM normal Lumbar spine/lower back: normal to inspection, lumbar ROM normal and straight leg raise negative bilaterally Sacroiliac joints: SI joints normal Other: mild tenderness over right gluteus medius, mild pain with deep palpation Extremity Common normals: normal to inspection and full ROM Neuro Common normals: oriented x3, CN's II-XII intact bilaterally, moves all extremities, no focal motor deficits, no sensory deficits noted and deep tendon reflexes 2+ bilaterally Sensorium/orientation: alert Gait (neuro): normal gait Motor exam: strength 5/5 throughout and no movement abnormalities noted Psych Common normals: mental status grossly normal, thought process normal, cooperative, affect normal, speech normal and activity/motor behavior normal Speech: normal speech Thought process: normal thought process Results Additional Findings Additional findings: If on a controlled substance or opioids, I have checked an OARRS report on this patient and there are no aberrancies noted in the prescribing history.??If on a controlled substance or opioid a drug screen was completed and reviewed within the last year, and if there has not been a drug screen completed we ordered one today to monitor higher risk, state monitored pain medication use. As part of providing excellent, safe, comprehensive care, the following was completed at our patient's visit: 1. A medication reconciliation and review to ensure accurate knowledge of current/active medications, including asking our patients to inform us about any nesy-bky-wkyiqru medications or herbal remedies/nutritional supplements/alternative remedies. 2. A review to specifically ensure our patients have had annual screening for screening for depression, screening for tobacco use, and screening for unhealthy alcohol use. For concerning screenings had a discussion with the patient, provided patient education, and recommended follow-up with primary care provider when appropriate. If patient noted with a risk of falling, they received education on strength, gait, and balance training to prevent future risk of falling. Assessment and Plan Assessment and Plan (1) Lumbar stenosis with neurogenic claudication: (2) Piriformis syndrome of right side: (3) Muscle spasm: Plan continue current medications rollator/wheeled walker script provided per husbands request, patient could benefit with chronic low back pain and lumbar stenosis with NC f/u 3 months, sooner if needed
== END 2023-11-11 09:48 | disposition home or self-care (01) ==
LOC: PM 09:48
PROVIDERS: PCP Family Medicine; Visit Provider Nurse Practitioner
DX: M48.062 Spinal stenosis, lumbar region with neurogenic claudication (principal); G57.01 Lesion of sciatic nerve, right lower limb; M62.838 Other muscle spasm
CPT/HCPCS: G0463

== ENCOUNTER 2024-02-17 12:46 | Outpatient (OUT) | payer MEDICARE, SELFPAY ==
--- NOTE | 2024-02-17 13:33 | P.CN_ITS ---
Consult Note: HPI Data of Consult Patient: known to practice within the last 3 years Requesting Physician: Mercy Pak NP Primary Care Provider: PREM GOEL Consult Narrative Reason for consult: f/u Narrative: Mary King is a pleasant 87 year old female who presents for evaluation of chronic right buttock and leg pain. Patient reporting ache intermittently. Pain today 7/10 worse with standing walking activity rolling over, improved with rest. Mild relief from aspirin, moderate relief from tylenol arthritis and ibuprofen. Patient reports PT was mild benefit. Patient was given tramadol 50mg Q6hrs for pain and found benefit but noticed drowsiness. finds mild benefit to zonegran 25mg HS. reports previously L4-5 DERICK provided >50% improvement for 3 weeks, did not feel it lasted beyond that. cc:: CC: Mercy Pak NP Review of Systems ROS Status of ROS 10 or more systems reviewed and unremark able except as noted in history and below Musculoskeletal Reports: back pain PFSH PFSH Medical History Low back pain ?M54.50 - Low back pain, unspecified (ICD-10) Hearing deficit ?H91.90 - Unspecified hearing loss, unspecified ear (ICD-10) High cholesterol ?E78.00 - Pure hypercholesterolemia, unspecified (ICD-10) Surgical History H/O breast biopsy ?Z98.890 - Other specified postprocedural states (ICD-10) Family History Brother Family history of CHF (congestive heart failure) Social History Within the past year, how often did you have a drink containing alcohol: monthly or less Within the past year, how many standard drinks containing alcohol did you have on a typical day: 1 or 2 Within the past year, how often did you have six or more drinks on one occasion: less than monthly Total score: 1 Score interpretation: A score less than 3 is consistent with normal alcohol consumption. 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 Known occupational exposures/hazards: No Highest level of school completed/degree received: high school graduate Do you want help with school or training: No Are you now , , , , never or living with a partner: In a typical week, how many times do you talk on the telephone with family, friends, or neighbors: 3 or more times per week How often do you get together with friends or relatives: 3 or more times per week How often do you attend episcopal or restorationist services: 4 or more times per year Do you belong to any clubs or organizations such as episcopal groups unions, [employer] or [employer] groups, or school groups: no Total score: 3 Score interpretation: A score of greater than or equal to 2 indicates the lowest level of social isolation. Little interest or pleasure in doing things: several days Feeling down, depressed, or hopeless: several days Feel stressed/tense/nervous/anxious/difficulty sleeping: only a little Due to disability, difficulty making decisions: No Do you think of yourself as: straight/heterosexual Gender Identity: female Meds Home Medications and Allergies Home Medications ?Medication ?Instructions ?Recorded ?Confirmed ?Type aspirin 81 mg capsule 81 mg PO QDAY 11/06/22 10/27/23 History ezetimibe 10 mg tablet 10 mg PO QAM 11/06/22 10/27/23 History acetaminophen 650 mg 650 mg PO .QD 11/14/22 10/27/23 History tablet,extended release (Arthritis Pain Relief (acetaminophen) ER) tramadol 50 mg tablet 50 mg PO Q6H PRN pain 5 days #20 08/08/23 10/27/23 Rx tabs triamterene 37.5 1 cap PO DAILY PRN leg swelling 11/13/23 11/13/23 History mg-hydrochlorothiazide 25 mg capsule zonisamide 25 mg capsule (Zonegran) 25 mg PO DAILY 11/13/23 11/13/23 History diclofenac sodium 75 mg 75 mg PO BID #60 tabs 01/11/24 Rx tablet,delayed release zonisamide 25 mg capsule (Zonegran) 25 mg PO DAILY #30 caps 01/11/24 Rx Allergies Allergy/AdvReac Type Severity Reaction Status Date / Time No Known Drug Allergies Allergy Verified 10/27/23 10:11 Exam Constitutional Documenting provider has reviewed patient's vital signs: yes Common normals: no apparent distress, oriented x3, healthy appearing, alert and well nourished General appearance: cooperative Nutritional appearance: overweight HENMT Common normals: normocephalic, hearing grossly normal bilaterally and moist oral mucous membranes Head and scalp: normocephalic Eye Common normals: PERRL Pupil: PERRL Neck & C-Spine Common normals: full ROM General: normal visual inspection Chest Common normals: inspection of chest normal Respiratory Common normals: normal respiratory effort, no retractions and no use of accessory muscles Back & Pelvis Thoracic spine/upper back: normal to inspection and thoracic ROM normal Lumbar spine/lower back: normal to inspection, lumbar ROM normal and straight leg raise positive right Sacroiliac joints: SI joints normal Other: mild tenderness over right gluteus medius, mild pain with deep palpation Extremity Common normals: normal to inspection and full ROM Neuro Common normals: oriented x3, CN's II-XII intact bilaterally, moves all extremities, no focal motor deficits, no sensory deficits noted and deep tendon reflexes 2+ bilaterally Sensorium/orientation: alert Gait (neuro): normal gait Motor exam: strength 5/5 throughout and no movement abnormalities noted Psych Common normals: mental status grossly normal, thought process normal, cooperative, affect normal, speech normal and activity/motor behavior normal Speech: normal speech Thought process: normal thought process Results Additional Findings Additional findings: If on a controlled substance or opioids, I have checked an OARRS report on this patient and there are no aberrancies noted in the prescribing history.??If on a controlled substance or opioid a drug screen was completed and reviewed within the last year, and if there has not been a drug screen completed we ordered one today to monitor higher risk, state monitored pain medication use. As part of providing excellent, safe, comprehensive care, the following was completed at our patient's visit: 1. A medication reconciliation and review to ensure accurate knowledge of current/active medications, including asking our patients to inform us about any ugnn-zsn-qyigeqr medications or herbal remedies/nutritional supplements/alternative remedies. 2. A review to specifically ensure our patients have had annual screening for screening for depression, screening for tobacco use, and screening for unhealthy alcohol use. For concerning screenings had a discussion with the patient, provided patient education, and recommended follow-up with primary care provider when appropriate. If patient noted with a risk of falling, they received education on strength, gait, and balance training to prevent future risk of falling. Assessment and Plan Assessment and Plan (1) Lumbar stenosis with neurogenic claudication: (2) Piriformis syndrome of right side: (3) Muscle spasm: Plan increase zonegran 25mg BID L5-S1 DERICK under fluoroscopy for lumbar stenosis with NC continue HEP as tolerated f/u 2 weeks after DERICK
== END 2024-02-17 12:47 | disposition home or self-care (01) ==
PROVIDERS: PCP Family Medicine; Visit Provider Nurse Practitioner
DX: M48.062 Spinal stenosis, lumbar region with neurogenic claudication (principal); G57.01 Lesion of sciatic nerve, right lower limb; M62.838 Other muscle spasm
CPT/HCPCS: G0463

== ENCOUNTER 2024-03-08 07:47 | Day surgery (SDC) | payer MEDICARE, SELFPAY ==
--- OUTSIDE RECORDS SUMMARY | 2024-03-08 07:52 | XMS_ITS | CCD ---
Author Organization [facility] CliniSyva Care Team Providers Care Motorized Squad Lieutenant Name Role Phone Prem Goel Unavailable DO Prem Goel Primary Care Provider [phone] DO Prem Goel Attending Provider LAKSHMIPATHY ., NARENDRANATH Admitting Eda vailable RAYMON, DR AMARO Primary Care Unavailable LAKSHMIPATHY ., NARENDBASSAMATH Attending Eda vailable LAKSHMIPATHY ., NARENDRANATH Consulting Eda vailable HALKER .TAMEKA Consulting Unavailable RAYMON, DR AMARO Primary Care Unavailable LAKSHMIPATHY ., NARFRANCISCAATH Attending Eda vailable LAKSHMIPATHY ., DONELL Consulting Eda vailable LAKSHMIPATHY ., DONELL Admitting Eda vailable RAYMON, DR AMARO Primary Care Unavailable LAKSHMIPATHY ., NARFRANCISCAATH Attending Eda vailable LAKSHMIPATHY ., NARFRANCISCAATH Consulting Eda vailable LAKSHMIPATHY ., DONELL Admitting Eda vailable RAYMON, DR AMARO Primary Care Unavailable LAKSHMIPATHY ., NARENDRANATH Admitting Eda vailable LAKSHMIPATHY ., NARENDRANATH Attending Eda vailable DR BILL RAMOS Admitting Unavailable RAYMON, DR AMARO Primary Care Unavailable PARAMJIT, DR KHAN Attending Unavailable RAMOS ., DR KHOA Hernandez Consulting Unavailable RAYMON, DR AMARO Primary Care Unavailable RAMOS ., DR KHOA Hernandez Admitting Unavailable RAMOS ., DR KHOA Hernandez Attending Unavailable RAMOS ., DR KHOA Hernandez Consulting Unavailable GARCIA .AIXA Consulting Unavailable RAYMON, DR AMARO Primary Care Unavailable PARAMJIT ., DR KHOA Hernandez Admitting Unavailable RAMOS ., DR KHOA Hernandez Attending Unavailable RAMOS ., DR KHOA Hernandez Admitting Unavailable KUNS, DR AMARO Primary Care Unavailable GARCIA ., AIXA Consulting Unavailable RAMOS ., DR KHOA Hernandez [...] vailable LAKSHMIPATHY ., ERISATH Consulting Eda vailable Kuns, DO Prem Primary Care Provider [phone] Kuns, DO Prem Attending Provider Kuns, DO [...] Care Unavailable Kuns, Prem Admitting Unavailable Kuns, DO Prem Primary Care Provider Kuns, DO Prem Attending Provider Medications Current Medications Medication Drug Class(es) Dates Sig (Normalized) Sig (Original) Aspir-81 81 MG (16 sources) take 1 tablet by mouth once daily Aspir-81 81 MG 1 tablet Orally Once a day Active benzonatate 200 mg oral capsule (2 sources) Non-narcotic Antitussive take 1 capsule by mouth every eight hours Benzonatate 200 MG 1 capsule Orally Three times a day Active diclofenac sodium 75 mg delayed release oral tablet (4 sources) Nonsteroidal Anti-inflammatory Drug Start: 09-24-2023 take 75 mg by mouth twice daily Diclofenac Sodium Active 75 MG PO Twice daily September 24, 2023 12:00am hydroCHLOROthiazide 25 mg / triamterene 37.5 mg oral capsule (4 sources) Potassium-sparing Diuretic, Thiazide Diuretic Start: 09-24-2023 take 1 capsule by mouth once daily in the morning Triamterene-Hyd rochlorothiazid Active 1 CAP PO Every morning 90 September 24, 2023 12:00am omeprazole 20 mg delayed release oral capsule (20 sources) Proton Pump Inhibitor Start: 05-20-2017 take 20 mg by mouth once daily Omeprazole Active 20 MG PO Daily March 27, 2020 12:00am (5 sources) Active Pumpkin Seed Extract-Soy Germ (Azo Bladder Control) 300 mg capsule (4 sources) Start: 09-24-2023 Pumpkin Seed Extract-Soy Germ (Azo Bladder Control) 300 mg capsule Active CAP PO September 24, 2023 12:00am Triamcinolone (13 sources) Corticosteroid Start: 11-20-2020 Kenalog -40 mg Nov, 1 cc Completed/Discontinued Medications Medication Drug Class(es) Dates Sig (Normalized) Sig (Original) 8 hr acetaminophen 650 mg extended release oral tablet (20 sources) Start: 09-24-2023 take 2 tablets by [...] as needed Orally every 8 hrs Active [id number] 200 actuat albuterol 0.09 mg/actuat metered dose inhaler (8 sources) beta2-Adrenergic Agonist Start: 09-24-2023 End: 09-24-2023 [...] aspirin 81 mg delayed release oral tablet (7 sources) Platelet Aggregation Inhibitor, Nonsteroidal Anti-inflammatory Drug Start: 03-27-2020 End: 09-24-2023 take 81 mg by mouth once daily Aspirin Discontinued 81 MG PO Daily March 27, 2020 12:00am September 24, 2023 9:22am atorvastatin 10 mg oral tablet (19 sources) HMG-CoA Reductase Inhibitor Start: 10-26-2017 End: 08-03-2023 take 1 tablet by mouth once daily Atorvastatin (Lipitor) 10 mg Tablet Discontinued 10 MG PO Daily March 27, 2020 12:00am August 03, 2023 5:27pm azithromycin 250 mg oral tablet (3 sources) Macrolide Antimicrobial Start: 10-12-2023 End: 12-29-2023 Azithromycin (Zithromax Z-Amado) 250 mg tablet Discontinued 0 PO .COMPLEX 6 October 12, 2023 12:00am December 29, 2023 10:02am For 250 mg dose pack: take 500 mg today (day 1), then 250 mg for 4 days (days 2-5) PO Zithromax Z-Amado 250 MG as directed Orally Active ezetimibe 10 mg oral tablet (20 sources) [...] Feb, Active methylPREDNISolone 4 mg oral tablet (6 sources) Corticosteroid Start: 10-12-2023 End: 12-29-2023 take 1 tablet by mouth once Methylprednisolone (Medrol (Amado)) 4 mg tablets,dose pack Discontinued 0 PO per package directions October 12, 2023 12:00am December 29, 2023 10:02am PO PER PKG DIR Start: 08-15-2021 methylPREDNISo lone 4 MG as directed Orally as directed Aug, Active Vit No.[id number]-[id number] ic (Classic ) 28 mg iron- 800 mcg tablet (4 sources) Start: 09-24-2023 End: 09-24-2023 Vit No.685-Edgn-Als ic (Classic ) 28 mg iron- 800 mcg tablet Discontinued TAB FEEDTUBE .dly September 24, 2023 12:00am September 24, 2023 9:22am Problems Active Problems Problem Classification Problem Date Documented Date Episodic/Chronic Chronic obstructive pulmonary disease and bronchiectasis (4 sources) Bronchitis; Translations: [Bronchitis, not specified as acute or chronic] Episodic Diabetes mellitus without complication (19 sources) Hyperglycemia, unspecified; Translations: [Hyperglycemia] Onset: 04-30-2021 Resolved: 01-28-2022 Episodic Diseases of white blood cells (17 sources) Lymphocytosis; Translations: [Lymphocytosis (symptomatic)] Onset: 02-28-2021 Resolved: 02-28-2021 Chronic Disorders of lipid metabolism (20 sources) Hyperlipidemia; Translations: [Hyperlipidemia, unspecified] Onset: 02-28-2021 Resolved: 01-28-2022 Chronic E Codes: Fall (7 sources) Fall; Translations: [Unspecified fall, initial encounter] 09-24-2023 Episodic Esophageal disorders (16 sources) Gastroesophageal reflux disease; Translations: [Gastro-esophageal reflux disease without esophagitis] Chronic Genitourinary symptoms and ill-defined conditions (7 sources) Urinary incontinence; Translations: [Unspecified urinary incontinence] [...] levels of other serum enzymes] Episodic Other lower respiratory disease (2 sources) Cough; Translations: [Cough] 12-29-2023 Episodic Other nervous system disorders (1 source) Other chronic pain; Translations: [OTHER CHRONIC PAIN] Onset: 09-11-2022 Chronic Other non-traumatic joint disorders (9 sources) Arthropathy of spinal facet joint; Translations: [Other specific arthropathies, not elsewhere classified, other specified site] Chronic Other non-traumatic joint disorders (16 sources) Pain in right knee; Translations: [Right knee pain, unspecified chronicity] Episodic Other non-traumatic joint disorders (1 source) Chronic pain of left upper limb; Translations: [Pain in left shoulder] 12-29-2023 Episodic Other non-traumatic joint disorders (1 source) Pain in left shoulder; Translations: [Pain in joint, shoulder region] 12-29-2023 Episodic Other nutritional; endocrine; and metabolic disorders (20 sources) Obesity; Translations: [Obesity, unspecified] 04-03-2020 Chronic Other screening for suspected conditions (not mental disorders or infectious disease) (20 sources) Mammography abnormal; Translations: [Other abnormal and inconclusive findings on diagnostic imaging of breast] 09-24-2023 Episodic Other upper respiratory infections (2 sources) Sore throat symptom; Translations: [Acute pharyngitis, unspecified] 12-29-2023 Episodic Pneumonia (except that caused by tuberculosis or sexually transmitted disease) (1 source) Bronchopneumonia, unspecified organism Episodic Residual codes; unclassified (16 sources) Insomnia; Translations: [Insomnia, unspecified] Episodic Residual codes; unclassified (4 sources) Edema of lower extremity; Translations: [Localized edema] 09-24-2023 Episodic Residual codes; unclassified (5 sources) Localized edema; Translations: [Edema] Onset: 10-06-2023 [...] Test Name Value Interpretation Reference Range Facility Influenza virus B Ag [Presen ce] in Upper respiratory specimen by Rapid immunoassayon 10-12-2023 FLUBV Ag IA.rapid Ql (Nph) Negative [facility] No Panel Informationon 10-11 Influenza Type A (Rapid) Negative [facility] POC SARS CoV-2 Antigen Negative [facility] No Panel InformationOrdered By: Prem Goel on 10-12-2023 Quick Strep (POC) [facility] RSV (POC) [facility] ECH echo transthoracicon [facility] echo transthoracic [facility] Main [place] [address] [place] [address] Echocardiogram Signed Patient: Mary Wilkerson MR#: [id number] 119 : 1935 Acct:[id number] Age/Sex: 87 / F ADM Date: 10/06/23 Loc: Room: Type: [facility] Attending Dr: Prem Goel DO Ordering Provider: Prem Goel DO Date of Service: 10/06/23 ECH/[facility] echo transthoracic: R60.0 - Localized edema Copies to: DO Bruce Solares MD, [facility] BSA: 1.7 m2 BP: 147/85 mmHg HR: [...] mmHg Transcribed By: SCV Performed At: 10/06/23 8365 Signed By: Bruce Caballero MD, [facility] 10/06/23 1962 Normal [facility] A1C with Estimated Average G bassam 09-18-2023 Glucose [Mass/Vol] 117 mg/dL Normal [facility] Comment on above: Order Comment: Reaso n for Exam Hyperglycemia Result Comment: PERF ORMED BY: [facility] [address] [place] [address] PATHOLOGIST CRYOLITE RECOVERY OPERATOR BEV TALBERT M.D. Performed By: #### L IPID, TSH3, CBC, CMP #### [facility] [address] HbA1c (Bld) [Mass fraction] 5.7 % High 4.3-5.6 [facility] Comment on above: Order Comment: Reaso n for Exam Hyperglycemia Result Comment: Incr eased risk for diabetes: 5.7 - 6.4 diabetes: >6.4 glycemic control for adults with diabetes: <7.0 Performed By: #### L IPID, TSH3, CBC, CMP #### [facility] [address] Alanine aminotransferase [En zymatic activity/volume] in Serum or PlasmaOrdered By: Prem Goel on 09-18-2023 ALT [Catalytic activity/Vol] 15 U/L 7-52 [facility] Albumin [Mass/volume] in Ser um or Plasma by Bromocresol green (BCG) dye binding methoOrdered By: Prem Goel on 09-18-2023 Albumin BCG dye [Mass/Vol] 4.0 g/dL 3.5-5.7 [facility] Alkaline phosphatase [Enzyma tic activity/volume] in Serum or PlasmaOrdered By: Prem Goel on 09-18-2023 ALP [Catalytic activity/Vol] 87 U/L 34-104 [facility] Aspartate aminotransferase [ Enzymatic activity/volume] in Serum or PlasmaOrdered By: Prem Goel on 09-18-2023 AST [Catalytic activity/Vol] 16 U/L 13-39 [facility] Basophils Auto (Bld) [#/Vol] Ordered By: Prem Goel on 09-18-2023 Basophils (Bld) [#/Vol] 0.0 10*3/uL 0.0-0.2 [facility] Basophils/100 WBC Auto (Bld) Ordered By: Prem Goel on 09-18-2023 Basophils/100 WBC (Bld) 0.5 % . [facility] Bilirubin.total [Mass/volume ] in Serum or PlasmaOrdered By: Prem Goel on 09-18-2023 Bilirubin [Mass/Vol] 0.6 mg/dL 0.3-1.0 [facility] Calcium [Mass/volume] in Ser um or PlasmaOrdered By: Prem Goel on 09-18-2023 Calcium [Mass/Vol] 9.5 mg/dL 8.6-10.3 [facility] Carbon dioxide, total [Moles /volume] in Serum or PlasmaOrdered By: Prem Goel on 09-18-2023 CO2 [Moles/Vol] 28.9 mmol/L 21.0-31.0 [facility] Chloride [Moles/volume] in S dede or PlasmaOrdered By: Prem Goel on 09-18-2023 Chloride [Moles/Vol] 104 mmol/L 98-107 [facility] Cholesterol [Mass/volume] in Serum or PlasmaOrdered By: Prem Goel on 09-18-2023 Cholesterol [Mass/Vol] 289 mg/dL 140-200 [facility] Comment on above: Chol less than 200 m g/dl low riskChol 201-239 mg/dl borderline riskChol 240 mg/dl and greater high risk Cholesterol in LDL Calc [Mas s/Vol]Ordered By: Prem Goel on 09-18-2023 Cholesterol in LDL [Mass/Vol] 197 mg/dL 0-100 [facility] Comment on above: LDL ATP III CLASSIFI CATIONLDL less than 100 mg/dL OptimalLDL 100-129 mg/dL Near or above optimalLDL 130-159 mg/dL Borderline highLDL 160-189 mg/dL HighLDL greater than 189 mg/dL Very high Cholesterol in VLDL Calc [Ma ss/Vol]Ordered By: Prem Goel on 09-18-2023 Cholesterol in VLDL [Mass/Vol] 23 mg/dL [facility] Complete Blood Count Auto Di ffon 09-18-2023 Basophils (Bld) [#/Vol] 0.0 10*3/uL Normal 0.0-0.2 [facility] Comment on above: Result Comment: PERF ORMED BY: [facility] [address] [place] [address] PATHOLOGIST CRYOLITE RECOVERY OPERATOR BEV TALBERT M.D. Performed By: #### L IPID, TSH3, CBC, CMP #### [address] Basophils/100 WBC (Bld) 0.5 % Normal . [facility] Comment on above: Performed By: #### L IPID, TSH3, CBC, CMP #### [address] Eosinophils (Bld) [#/Vol] 0.1 10*3/uL Normal 0.0-0.45 [facility] Comment on above: Performed By: #### L IPID, TSH3, CBC, CMP #### [address] Eosinophils/100 WBC (Bld) 2.2 % Normal . [facility] Comment on above: Performed By: #### L IPID, TSH3, CBC, CMP #### [address] Erythrocyte distribution width (RBC) [Ratio] 13.9 % Normal 11.9-15.3 [facility] Comment on above: Performed By: #### L IPID, TSH3, CBC, CMP #### [address] Hematocrit (Bld) [Volume fraction] 44.9 % Normal 34.0-46.4 [facility] Comment on above: Performed By: #### L IPID, TSH3, CBC, CMP #### [address] Hemoglobin (Bld) [Mass/Vol] 14.3 g/dL Normal 11.8-15.4 [facility] Comment on above: Performed By: #### L IPID, TSH3, CBC, CMP #### [address] Lymphocytes (Bld) [#/Vol] 2.9 10*3/uL Normal 1.00-4.8 [facility] Comment on above: Performed By: #### L IPID, TSH3, CBC, CMP #### [address] Lymphocytes/100 WBC (Bld) 53.2 % Normal . [facility] Comment on above: Performed By: #### L IPID, TSH3, CBC, CMP #### [address] MCH (RBC) [Entitic mass] 29.4 pg Normal 24.7-34.3 [facility] Comment on above: Performed By: #### L IPID, TSH3, CBC, CMP #### [address] MCV (RBC) [Entitic vol] 92.3 fL Normal 80-100 [facility] Comment on above: Performed By: #### L IPID, TSH3, CBC, CMP #### [address] Mean Corpuscular HGB Conc 31.9 g/dL Low 32.0-35.0 [facility] Comment on above: Performed By: #### L IPID, TSH3, CBC, CMP #### [address] Monocytes (Bld) [#/Vol] 0.4 10*3/uL Normal 0.0-0.8 [facility] Comment on above: Performed By: #### L IPID, TSH3, CBC, CMP #### [address] Monocytes/100 WBC (Bld) 8.0 % Normal . [facility] Comment on above: Performed By: #### L IPID, TSH3, CBC, CMP #### [address] Neutrophils (Bld) [#/Vol] 1.9 10*3/uL Normal 1.8-7.7 [facility] Comment on above: Performed By: #### L IPID, TSH3, CBC, CMP #### [address] Neutrophils/100 WBC (Bld) 36.1 % Normal . [facility] Comment on above: Performed By: #### L IPID, TSH3, CBC, CMP #### [address] NRBC% 0.2 /100{WBC} Normal 0-0.5 [facility] Comment on above: Performed By: #### L IPID, TSH3, CBC, CMP #### [address] Platelet mean volume (Bld) [Entitic vol] 10.4 fL Normal 6.3-10.[address] [facility] Comment on above: Performed By: #### L IPID, TSH3, CBC, CMP #### [address] Platelets (Bld) [#/Vol] 230 10*3/uL Normal 150-450 [facility] Comment on above: Performed By: #### L IPID, TSH3, CBC, CMP #### [address] RBC (Bld) [#/Vol] 4.87 10*6/uL Normal 3.60-5.00 [facility] Comment on above: Performed By: #### L IPID, TSH3, CBC, CMP #### [address] WBC (Bld) [#/Vol] 5.4 10*3/uL Normal 3.8-11.6 [facility] Comment on above: Performed By: #### L IPID, TSH3, CBC, CMP #### [address] Comprehensive Metabolic Pane [place] 09-18-2023 Albumin [Mass/Vol] 4.0 g/dL Normal 3.5-5.7 [facility] Comment on above: Order Comment: Reaso n for Exam Hyperlipidemia Performed By: #### L IPID, TSH3, CBC, CMP #### [address] Albumin/Globulin [Mass ratio] 1.7 {ratio} Normal [facility] Comment on above: Order Comment: Reaso n for Exam Hyperlipidemia Performed By: #### L IPID, TSH3, CBC, CMP #### [facility] [address] [place] [address] [place] ALP [Catalytic activity/Vol] 87 U/L Normal 34-104 [facility] Comment on above: Order Comment: Reaso n for Exam Hyperlipidemia Performed By: #### L IPID, TSH3, CBC, CMP #### [facility] [address] [place] [address] [place] ALT [Catalytic activity/Vol] 15 U/L Normal 7-52 [facility] Comment on above: Order Comment: Reaso n for Exam Hyperlipidemia Performed By: #### L IPID, TSH3, CBC, CMP #### [facility] [address] [place] [address] Anion gap [Moles/Vol] 12.3 mmol/L Normal 6.0-15.0 [facility] Comment on above: Order Comment: Reaso n for Exam Hyperlipidemia Performed By: #### L IPID, TSH3, CBC, CMP #### [facility] [address] [place] [address] [place] AST [Catalytic activity/Vol] 16 U/L Normal 13-39 [facility] Comment on above: Order Comment: Reaso n for Exam Hyperlipidemia Performed By: #### L IPID, TSH3, CBC, CMP #### [facility] [address] [place], [place] [id number] [place] Bilirubin [Mass/Vol] 0.6 mg/dL Normal 0.3-1.0 [facility] Comment on above: Order Comment: Reaso n for Exam Hyperlipidemia Performed By: #### L IPID, TSH3, CBC, CMP #### [facility] [address] [place] [address] [place] Calcium [Mass/Vol] 9.5 mg/dL Normal 8.6-10.3 [facility] Comment on above: Order Comment: Reaso n for Exam Hyperlipidemia Performed By: #### L IPID, TSH3, CBC, CMP #### [facility] [address] [place], [place] [id number] [place] Chloride [Moles/Vol] 104 mmol/L Normal 98-107 [facility] Comment on above: Order Comment: Reaso n for Exam Hyperlipidemia Performed By: #### L IPID, TSH3, CBC, CMP #### [address] CO2 [Moles/Vol] 28.9 mmol/L Normal 21.0-31.0 [facility] Comment on above: Order Comment: Reaso n for Exam Hyperlipidemia Performed By: #### L IPID, TSH3, CBC, CMP #### [address] Creatinine [Mass/Vol] 0.79 mg/dL Normal 0.60-1.20 [facility] Comment on above: Order Comment: Reaso n for Exam Hyperlipidemia Performed By: #### L IPID, TSH3, CBC, CMP #### [address] GFR/1.73 sq M.predicted MDRD (S/P/Bld) [Vol rate/Area] mL/min/{1.73_m2} Normal [facility] Comment on above: Order Comment: Reaso n for Exam Hyperlipidemia Performed By: #### L IPID, TSH3, CBC, CMP #### [address] Globulin (S) [Mass/Vol] 2.4 g/dL Normal T [facility] Comment on above: Order Comment: Reaso n for Exam Hyperlipidemia Performed By: #### L IPID, TSH3, CBC, CMP #### [address] Glucose [Mass/Vol] 90 mg/dL Normal 70-100 [facility] Comment on above: Order Comment: Reaso n for Exam Hyperlipidemia Result Comment: [place] Glucose Reference Range is dependent on time and content of last meal. Glucose of more than 200 mg/dL in a nonstressed, ambulatory subject supports the diagnosis of Diabetes Mellitus. ADA recommended reference range Performed By: #### L IPID, TSH3, CBC, CMP #### [address] Potassium [Moles/Vol] 4.2 mmol/L Normal 3.5-5.1 [facility] Comment on above: Order Comment: Reaso n for Exam Hyperlipidemia Performed By: #### L IPID, TSH3, CBC, CMP #### [facility] [address] Protein [Mass/Vol] 6.4 g/dL Normal 6.4-8.9 [facility] Comment on above: Order Comment: Reaso n for Exam Hyperlipidemia Performed By: #### L IPID, TSH3, CBC, CMP #### [facility] [address] Sodium [Moles/Vol] 141 mmol/L Normal 136-145 [facility] Comment on above: Order Comment: Reaso n for Exam Hyperlipidemia Performed By: #### L IPID, TSH3, CBC, CMP #### [facility] [address] [place] [address] [place] Urea nitrogen [Mass/Vol] 17 mg/dL Normal 7-25 [facility] Comment on above: Order Comment: Reaso n for Exam Hyperlipidemia Performed By: #### L IPID, TSH3, CBC, CMP #### [facility] [address] [place] [address] [place] Creatinine [Mass/volume] in Serum or PlasmaOrdered By: Prem Goel on 09-18-2023 Creatinine [Mass/Vol] 0.79 mg/dL 0.60-1.20 [facility] Eosinophils Auto (Bld) [#/Vo l]Ordered By: Prem Goel on 09-18-2023 Eosinophils (Bld) [#/Vol] 0.1 10*3/uL 0.0-0.45 [facility] Eosinophils/100 WBC Auto (Bl d)Ordered By: Prem Goel on 09-18-2023 Eosinophils/100 WBC (Bld) 2.2 % . [facility] Erythrocyte distribution wid th Auto (RBC) [Ratio]Ordered By: Prem Goel on 09-18-2023 Erythrocyte distribution width (RBC) [Ratio] 13.9 % 11.9-15.3 [facility] Globulin Calc (S) [Mass/Vol] Ordered By: Prem Goel on 09-18-2023 Globulin (S) [Mass/Vol] 2.4 g/dL [facility] Glucose [Mass/volume] in Ser um or PlasmaOrdered By: Prem Goel on 09-18-2023 Glucose [Mass/Vol] 90 mg/dL 70-100 [facility] Comment on above: ADA recommended refe [...] glycated hemoglobin (Bld) [Mass/Vol] 117 mg/dL [facility] Hematocrit Auto (Bld) [Volum e fraction]Ordered By: Prem Goel on 09-18-2023 Hematocrit (Bld) [Volume fraction] 44.9 % 34.0-46.4 [facility] Hemoglobin A1c percentageOrd ered By: Prem Goel on 09-18-2023 HbA1c (Bld) [Mass fraction] 5.7 % 4.3-5.6 [facility] Comment on above: Increased risk for d iabetes: 5.7 - 6.4diabetes: >6.4glycemic control for adults with diabetes: <7.0 Hemoglobin [Mass/volume] in BloodOrdered By: Prem Goel on 09-18-2023 Hemoglobin (Bld) [Mass/Vol] 14.3 g/dL 11.8-15.4 [facility] Leukocytes [#/volume] correc guillermina for nucleated erythrocytes in Blood by Automated counOrdered By: Prem Goel on 09-18-2023 WBC corrected for nucl RBC Auto (Bld) [#/Vol] 5.4 10*3/uL 3.8-11.6 [facility] Lipid Panelon 09-18-2023 Cholesterol [Mass/Vol] 289 mg/dL High 140-200 [facility] Comment on above: Order Comment: Reaso n for Exam Hyperlipidemia Result Comment: Chol less than 200 mg/dl low risk Chol 201-239 mg/dl borderline risk Chol 240 mg/dl and greater high risk Performed By: #### L IPID, TSH3, CBC, CMP #### [facility] [address] [place] [id number] [place] Cholesterol in HDL [Mass/Vol] 69 mg/dL Normal 23-92 [facility] Comment on above: Order Comment: Reaso n for Exam Hyperlipidemia Result Comment: HDL CHOL ATP-III CLASSIFICATION Cardiovascular Risk HDL > or equal to 60 mg/dL LOW HDL < 40 mg/dL HIGH Performed By: #### L IPID, TSH3, CBC, CMP #### [facility] [address] [place] [address] [place] Cholesterol.total/Araceli sterol in HDL [Mass ratio] 4.2 {ratio} Normal <5.0 [facility] Comment on above: Order Comment: Reaso n for Exam Hyperlipidemia Performed By: #### L IPID, TSH3, CBC, CMP #### [facility] [address] LDL Cholesterol,Calculated 197 mg/dL High 0-100 [facility] Comment on above: Order Comment: Reaso n for Exam Hyperlipidemia Result Comment: LDL ATP III CLASSIFICATION LDL less than 100 mg/dL Optimal LDL 100-129 mg/dL Near or above optimal LDL 130-159 mg/dL Borderline high LDL 160-189 mg/dL High LDL greater than 189 mg/dL Very high Performed By: #### L IPID, TSH3, CBC, CMP #### [facility] [address] [place] [id number] [place] Triglyceride w/Reflex 116 mg/dL Normal 0-149 [facility] Comment on above: Order Comment: Reaso n for Exam Hyperlipidemia Result Comment: TRIG ATP III CLASSIFICATION TRIG less than 150 mg/dL Normal TRIG 150-199 mg/dL Borderline high TRIG 200-500 mg/dL High TRIG greater than 500 mg/dL Very high Standard traceable to the Center for Disease Conrtrol and Prevention (CDC) test method. Performed By: #### L IPID, TSH3, CBC, CMP #### [facility] [address] [place] [id number] [facility] VLDL CHOLESTEROL 23 mg/dL Normal [facility] Comment on above: Order Comment: Reaso n for Exam Hyperlipidemia Performed By: #### L IPID, TSH3, CBC, CMP #### [facility] [address] Lymphocytes Auto (Bld) [#/Vo l]Ordered By: Prem Goel on 09-18-2023 Lymphocytes (Bld) [#/Vol] 2.9 10*3/uL 1.00-4.8 [facility] Lymphocytes/100 WBC Auto (Bl d)Ordered By: Prem Goel on 09-18-2023 Lymphocytes/100 WBC (Bld) 53.2 % . [facility] MCH Auto (RBC) [Entitic mass ]Ordered By: Prem Goel on 09-18-2023 MCH (RBC) [Entitic mass] 29.4 pg 24.7-34.3 [facility] MCHC Auto (RBC) [Mass/Vol]Or dered By: Prem Goel on 09-18-2023 MCHC (RBC) [Mass/Vol] 31.9 g/dL 32.0-35.0 [facility] MCV Auto (RBC) [Entitic vol] Ordered By: Prem Goel on 09-18-2023 MCV (RBC) [Entitic vol] 92.3 fL 80-[address] [facility] Monocytes Auto (Bld) [#/Vol] Ordered By: Prem Goel on 09-18-2023 Monocytes (Bld) [#/Vol] 0.4 10*3/uL 0.0-0.8 [facility] Monocytes/100 WBC Auto (Bld) Ordered By: Prem Goel on 09-18-2023 Monocytes/100 WBC (Bld) 8.0 % . [facility] Neutrophils Auto (Bld) [#/Vo l]Ordered By: Prem Goel on 09-18-2023 Neutrophils (Bld) [#/Vol] 1.9 10*3/uL 1.8-7.7 [facility] Neutrophils/100 WBC Auto (Bl d)Ordered By: Prme Goel on 09-18-2023 Neutrophils/100 WBC (Bld) 36.1 % . [facility] No Panel InformationOrdered By: Prem Goel on 09-18-2023 Estimated GFR (CKD-EPI) > 60.0 mL/Min [facility] Creatinine Clearance (Chem N/A [facility] Nucleated erythrocytes [Pres ence] in Blood by Automated countOrdered By: Prem Goel on 09-18-2023 Nucleated RBC Auto Ql (Bld) 0.2 /100{WBC} 0-0.5 [facility] Platelet mean volume Auto (B ld) [Entitic vol]Ordered By: Prem Goel on 09-18-2023 Platelet mean volume (Bld) [Entitic vol] 10.4 fL 6.3-10.7 [facility] Platelets Auto (Bld) [#/Vol] Ordered By: Prem Goel on 09-18-2023 Platelets (Bld) [#/Vol] 230 10*3/uL 150-450 [facility] Potassium [Moles/volume] in Serum or PlasmaOrdered By: Prem Goel on 09-18-2023 Potassium [Moles/Vol] 4.2 mmol/L 3.5-5.1 [facility] Protein [Mass/volume] in Ser um or PlasmaOrdered By: Prem Goel on 09-18-2023 Protein [Mass/Vol] 6.4 g/dL 6.4-8.9 [facility] RBC Auto (Bld) [#/Vol]Ordere d By: Prem Goel on 09-18-2023 RBC (Bld) [#/Vol] 4.87 10*6/uL 3.60-5.00 [facility] Serum or plasma albumin/glob ulin mass ratioOrdered By: Prem Goel on 09-18-2023 Albumin/Globulin [Mass ratio] 1.7 {ratio} [facility] Serum or plasma anion gap de terminationOrdered By: Prem Goel on 09-18-2023 Anion gap [Moles/Vol] 12.3 mmol/L 6.0-15.0 [facility] Serum or plasma high density lipoprotein (HDL) cholesterol measurementOrdered By: Prem Goel on 09-18-2023 Cholesterol in HDL [Mass/Vol] 69 mg/dL 23-92 [facility] Comment on above: HDL CHOL ATP-III CLA SSIFICATION Cardiovascular RiskHDL > or equal to 60 mg/dL LOWHDL < 40 mg/dL HIGH Serum or plasma total choles terol/high density lipoprotein (HDL) cholesterol mass ratOrdered By: Prem Goel on 09-18-2023 Cholesterol.total/Araceli sterol in HDL [Mass ratio] 4.2 {ratio} <5.0 [facility] Sodium [Moles/volume] in Ser um or PlasmaOrdered By: Prem Goel on 09-18-2023 Sodium [Moles/Vol] 141 mmol/L 136-145 [facility] Thyroid Stimulating Hormoneo n 09-18-2023 TSH Qn 2.60 m[IU]/L Normal 0.45-5.[address] [facility] Comment on above: Order Comment: Reaso n for Exam Hyperlipidemia Result Comment: PERF ORMED BY: [place] [address] PATHOLOGIST [employer] OPERATOR BEV TALBERT M.D. Performed By: #### L IPID, TSH3, CBC, CMP #### [facility] [address] Thyrotropin [Units/volume] i n Serum or PlasmaOrdered By: Prem Goel on 09-18-2023 TSH Qn 2.60 m[IU]/L 0.45-5.33 [facility] Triglyceride [Mass/volume] i n Serum or PlasmaOrdered By: Prem Goel on 09-18-2023 Triglyceride [Mass/Vol] 116 mg/dL 0-[address] [facility] Comment on above: TRIG ATP III CLASSIF ICATIONTRIG less than 150 mg/dL NormalTRIG 150-199 mg/dL Borderline highTRIG 200-500 mg/dL High TRIG greater than 500 mg/dL Very highStandard traceable to the Center for Disease Conrtrol and Prevention (CDC) test method. Urea nitrogen [Mass/volume] in Serum or PlasmaOrdered By: Prem Goel on 09-18-2023 Urea nitrogen [Mass/Vol] 17 mg/dL 7-25 [facility] WBC Auto (Bld) [#/Vol]Ordere d By: Prem Goel on 09-18-2023 WBC (Bld) [#/Vol] 5.4 10*3/uL 3.8-11.6 [facility] Basophils Auto (Bld) [#/Vol] on 08-07-2023 Basophils (Bld) [#/Vol] 0.0 10 3/uL 0.0-0.1 [facility] Basophils/100 WBC Auto (Bld) on 08-07-2023 Basophils/100 WBC (Bld) 0.5 % 0.2-2.[address] [facility] Eosinophils/100 WBC Auto (Bl d)on 08-07-2023 Eosinophils/100 WBC (Bld) 1.1 % 0.9-7.0 [facility] Erythrocyte distribution wid th Auto (RBC) [Ratio]on 08-07-2023 Erythrocyte distribution width (RBC) [Ratio] 12.6 % 11.0-15.0 [facility] Estimated glomerular filtrat ion rate (GFR) non- Americanon 08-07-2023 GFR/1.73 sq M.predicted among non-blacks MDRD (S/P/Bld) [Vol rate/Area] mL/min/{1.73_m2} >=60 [facility] Globulin Calc (S) [Mass/Vol] on 08-07-2023 Globulin (S) [Mass/Vol] 3.8 g/dL [facility] Hematocrit Auto (Bld) [Volum e fraction]on 08-07-2023 Hematocrit (Bld) [Volume fraction] 48.4 % 36.0-48.0 [facility] Hemoglobin [Mass/volume] in Bloodon 08-07-2023 Hemoglobin (Bld) [Mass/Vol] 15.4 g/dL 12.0-16.0 [facility] Laboratory - Chemistry and C hemistry - challengeon 08-07-2023 Albumin [Mass/Vol] 3.4 g/dL 3.4-5.0 [facility] ALP [Catalytic activity/Vol] 118 U/L 46-116 [facility] ALT [Catalytic activity/Vol] 23 U/L 14-59 [facility] AST [Catalytic activity/Vol] 20 U/L 15-37 [facility] Bilirubin [Mass/Vol] 0.4 mg/dL 0.2-1.0 [facility] Calcium [Mass/Vol] 9.4 mg/dL 8.5-10.1 [facility] Chloride [Moles/Vol] 106 mmol/L 98-107 [facility] CO2 [Moles/Vol] 28.0 mmol/L 21.0-32.0 [facility] Creatinine [Mass/Vol] 0.80 mg/dL 0.55-1.02 [facility] GFR/1.73 sq M.predicted MDRD (S/P/Bld) [Vol rate/Area] mL/min/{1.73_m2} >=60 [facility] Glucose [Mass/Vol] 121 mg/dL 74-106 [facility] Potassium [Moles/Vol] 3.9 mmol/L 3.5-5.1 [facility] Protein [Mass/Vol] 7.2 g/dL 6.4-8.2 [facility] Sodium [Moles/Vol] 142 mmol/L 136-145 [facility] Urea nitrogen [Mass/Vol] 20.0 mg/dL 7.0-18.0 [facility] Urea nitrogen/Creatinine [Mass ratio] 25.0 mg/mg [facility] Laboratory - Hematology and Cell countson 08-07-2023 Immature granulocytes/100 WBC (Bld) 0.3 % 0.0-0.5 [facility] Leukocytes [#/volume] correc guillermina for nucleated erythrocytes in Blood by Automated counon 08-07-2023 WBC corrected for nucl RBC Auto (Bld) [#/Vol] 7.5 10 3/uL 4.0-11.0 [facility] Lymphocytes Auto (Bld) [#/Vo l]on 08-07-2023 Lymphocytes (Bld) [#/Vol] 3.4 10 3/uL 1.2-3.8 [facility] Lymphocytes/100 WBC Auto (Bl d)on 08-07-2023 Lymphocytes/100 WBC (Bld) 45.6 % 20.5-60.0 [facility] MCH Auto (RBC) [Entitic mass ]on 08-07-2023 MCH (RBC) [Entitic mass] 29.7 pg 26.7-34.0 [facility] MCHC Auto (RBC) [Mass/Vol]on 08-07-2023 MCHC (RBC) [Mass/Vol] 31.8 g/dL 29.9-35.2 [facility] MCV Auto (RBC) [Entitic vol] on 08-07-2023 MCV (RBC) [Entitic vol] 93.3 fL 81.0-99.[address] [facility] Monocytes Auto (Bld) [#/Vol] on 08-07-2023 Monocytes (Bld) [#/Vol] 0.7 10 3/uL 0.3-0.8 [facility] Monocytes/100 WBC Auto (Bld) on 08-07-2023 Monocytes/100 WBC (Bld) 8.6 % 1.7-12.[address] [facility] Neutrophils Auto (Bld) [#/Vo l]on 08-07-2023 Neutrophils (Bld) [#/Vol] 3.3 10 3/uL 1.4-6.5 [facility] Neutrophils/100 WBC Auto (Bl d)on 08-07-2023 Neutrophils/100 WBC (Bld) 43.9 % 43.0-75.0 [facility] No Panel Informationon 08-06 Eosinophils # (Auto) 0.1 10 3/uL 0.0-0.7 [facility] Immature Granulocyte # (Auto) 0.02 10 3/uL 0.00-0.03 [facility] Platelet mean volume Auto (B ld) [Entitic vol]on 08-07-2023 Platelet mean volume (Bld) [Entitic vol] 12.5 fL 9.5-13.5 [facility] Platelets Auto (Bld) [#/Vol] on 08-07-2023 Platelets (Bld) [#/Vol] 238 10 3/uL 150-450 [facility] RBC Auto (Bld) [#/Vol]on RBC (Bld) [#/Vol] 5.19 10 6/uL 4.20-5.40 [facility] Serum or plasma albumin/glob ulin mass ratioon 08-07-2023 Albumin/Globulin [Mass ratio] 0.9 {ratio} [facility] Serum or plasma anion gap de terminationon 08-07-2023 Anion gap [Moles/Vol] 11.9 mmol/L [facility] A1C with Estimated Average G krisn 03-12-2023 Glucose [Mass/Vol] 126 mg/dL Normal [facility] Comment on above: Order Comment: Reaso n for Exam Hyperglycemia Result Comment: PERF ORMED BY: [place] [address] PATHOLOGIST [employer] OPERATOR BEV TALBERT M.D. Performed By: #### L IPID, TSH3, CBC, CMP #### [facility] [address] [place] [address] HbA1c (Bld) [Mass fraction] 6.0 % High 4.3-5.6 [facility] Comment on above: Order Comment: Reaso n for Exam Hyperglycemia Result Comment: Incr eased risk for diabetes: 5.7 - 6.4 diabetes: >6.4 glycemic control for adults with diabetes: <7.0 Performed By: #### L IPID, TSH3, CBC, CMP #### [facility] [address] [place] [address] Alanine aminotransferase [En zymatic activity/volume] in Serum or PlasmaOrdered By: Prem Goel on 03-12-2023 ALT [Catalytic activity/Vol] 11 U/L 7-52 [facility] Albumin [Mass/volume] in Ser um or Plasma by Bromocresol green (BCG) dye binding methoOrdered By: Prem Goel on 03-12-2023 Albumin BCG dye [Mass/Vol] 3.9 g/dL 3.5-5.7 [facility] Alkaline phosphatase [Enzyma tic activity/volume] in Serum or PlasmaOrdered By: Prem Goel on 03-12-2023 ALP [Catalytic activity/Vol] 89 U/L 34-104 [facility] Aspartate aminotransferase [ Enzymatic activity/volume] in Serum or PlasmaOrdered By: Prem Goel on 03-12-2023 AST [Catalytic activity/Vol] 15 U/L 13-39 [facility] Basophils Auto (Bld) [#/Vol] Ordered By: Prem Goel on 03-12-2023 Basophils (Bld) [#/Vol] 0.0 10*3/uL 0.0-0.2 [facility] Basophils/100 WBC Auto (Bld) Ordered By: Prem Goel on 03-12-2023 Basophils/100 WBC (Bld) 0.7 % . [facility] Bilirubin.total [Mass/volume ] in Serum or PlasmaOrdered By: Prem Goel on 03-12-2023 Bilirubin [Mass/Vol] 0.6 mg/dL 0.3-1.0 [facility] Calcium [Mass/volume] in Ser um or PlasmaOrdered By: Prem Goel on 03-12-2023 Calcium [Mass/Vol] 9.4 mg/dL 8.6-10.3 [facility] Carbon dioxide, total [Moles /volume] in Serum or PlasmaOrdered By: Prem Goel on 03-12-2023 CO2 [Moles/Vol] 28.2 mmol/L 21.0-31.0 [facility] Chloride [Moles/volume] in S dede or PlasmaOrdered By: Prem Goel on 03-12-2023 Chloride [Moles/Vol] 107 mmol/L 98-107 [facility] Cholesterol [Mass/volume] in Serum or PlasmaOrdered By: Prem Goel on 03-12-2023 Cholesterol [Mass/Vol] 228 mg/dL 140-200 [facility] Comment on above: Chol less than 200 m g/dl low riskChol 201-239 mg/dl borderline riskChol 240 mg/dl and greater high risk Cholesterol in LDL Calc [Mas s/Vol]Ordered By: Prem Goel on 03-12-2023 Cholesterol in LDL [Mass/Vol] 146 mg/dL 0-100 [facility] Comment on above: LDL ATP III CLASSIFI CATIONLDL less than 100 mg/dL OptimalLDL 100-129 mg/dL Near or above optimalLDL 130-159 mg/dL Borderline highLDL 160-189 mg/dL HighLDL greater than 189 mg/dL Very high Cholesterol in VLDL Calc [Ma ss/Vol]Ordered By: Prem Goel on 03-12-2023 Cholesterol in VLDL [Mass/Vol] 15 mg/dL [facility] Complete Blood Count Auto Di ffon 03-12-2023 Basophils (Bld) [#/Vol] 0.0 10*3/uL Normal 0.0-0.2 [facility] Comment on above: Order Comment: Reaso n for Exam Hyperlipidemia Result Comment: PERF ORMED BY: [place] [address] PATHOLOGIST [employer]OV[employer] OPERATOR BEV TALBERT M.D. Performed By: #### C BC #### [address] Basophils/100 WBC (Bld) 0.7 % Normal . [facility] Comment on above: Order Comment: Reaso n for Exam Hyperlipidemia Performed By: #### C BC #### [place] [address] [place] Eosinophils (Bld) [#/Vol] 0.1 10*3/uL Normal 0.0-0.45 [facility] Comment on above: Order Comment: Reaso n for Exam Hyperlipidemia Performed By: #### C BC #### [address] Eosinophils/100 WBC (Bld) 2.3 % Normal . [facility] Comment on above: Order Comment: Reaso n for Exam Hyperlipidemia Performed By: #### C BC #### [address] Erythrocyte distribution width (RBC) [Ratio] 12.9 % Normal 11.9-15.3 [facility] Comment on above: Order Comment: Reaso n for Exam Hyperlipidemia Performed By: #### C BC #### [address] Hematocrit (Bld) [Volume fraction] 45.2 % Normal 34.0-46.4 [facility] Comment on above: Order Comment: Reaso n for Exam Hyperlipidemia Performed By: #### C BC #### [place] [address] [place] Hemoglobin (Bld) [Mass/Vol] 14.9 g/dL Normal 11.8-15.4 [facility] Comment on above: Order Comment: Reaso n for Exam Hyperlipidemia Performed By: #### C BC #### [address] Lymphocytes (Bld) [#/Vol] 2.6 10*3/uL Normal 1.00-4.8 [facility] Comment on above: Order Comment: Reaso n for Exam Hyperlipidemia Performed By: #### C BC #### [address] Lymphocytes/100 WBC (Bld) 42.3 % Normal . [facility] Comment on above: Order Comment: Reaso n for Exam Hyperlipidemia Performed By: #### C BC #### [address] MCH (RBC) [Entitic mass] 29.8 pg Normal 24.7-34.3 [facility] Comment on above: Order Comment: Reaso n for Exam Hyperlipidemia Performed By: #### C BC #### [address] MCV (RBC) [Entitic vol] 90.5 fL Normal 80-100 [facility] Comment on above: Order Comment: Reaso n for Exam Hyperlipidemia Performed By: #### C BC #### [address] Mean Corpuscular HGB Conc 33.0 g/dL Normal 32.0-35.0 [facility] Comment on above: Order Comment: Reaso n for Exam Hyperlipidemia Performed By: #### C BC #### [place] [address] [place] Monocytes (Bld) [#/Vol] 0.6 10*3/uL Normal 0.0-0.8 [facility] Comment on above: Order Comment: Reaso n for Exam Hyperlipidemia Performed By: #### C BC #### [place] [address] [place] Monocytes/100 WBC (Bld) 9.1 % Normal . [facility] Comment on above: Order Comment: Reaso n for Exam Hyperlipidemia Performed By: #### C BC #### [facility] [address] [place] [address] [place] Neutrophils (Bld) [#/Vol] 2.8 10*3/uL Normal 1.8-7.7 [facility] Comment on above: Order Comment: Reaso n for Exam Hyperlipidemia Performed By: #### C BC #### [facility] [address] [place] [address] [place] Neutrophils/100 WBC (Bld) 45.6 % Normal . [facility] Comment on above: Order Comment: Reaso n for Exam Hyperlipidemia Performed By: #### C BC #### [facility] [address] NRBC% 0.1 /100{WBC} Normal 0-0.5 [facility] Comment on above: Order Comment: Reaso n for Exam Hyperlipidemia Performed By: #### C BC #### [address] Platelet mean volume (Bld) [Entitic vol] 10.2 fL Normal 6.3-10.[address] [facility] Comment on above: Order Comment: Reaso n for Exam Hyperlipidemia Performed By: #### C BC #### [facility] [address] [place] [id number] [place] Platelets (Bld) [#/Vol] 201 10*3/uL Normal 150-450 [facility] Comment on above: Order Comment: Reaso n for Exam Hyperlipidemia Performed By: #### C BC #### [facility] [address] [place] [id number] [place] RBC (Bld) [#/Vol] 4.99 10*6/uL Normal 3.60-5.00 [facility] Comment on above: Order Comment: Reaso n for Exam Hyperlipidemia Performed By: #### C BC #### [facility] [address] [place] [id number] [place] WBC (Bld) [#/Vol] 6.1 10*3/uL Normal 3.8-11.6 [facility] Comment on above: Order Comment: Reaso n for Exam Hyperlipidemia Performed By: #### C BC #### [facility] [address] [place] [address] Comprehensive Metabolic Pane [place] 03-12-2023 Albumin [Mass/Vol] 3.9 g/dL Normal 3.5-5.7 [facility] Comment on above: Order Comment: Reaso n for Exam Hyperlipidemia Performed By: #### T SH3, LIPID, CMP #### [address] Albumin/Globulin [Mass ratio] 1.8 {ratio} Normal [facility] Comment on above: Order Comment: Reaso n for Exam Hyperlipidemia Performed By: #### T SH3, LIPID, CMP #### [address] ALP [Catalytic activity/Vol] 89 U/L Normal 34-104 [facility] Comment on above: Order Comment: Reaso n for Exam Hyperlipidemia Performed By: #### T SH3, LIPID, CMP #### [address] ALT [Catalytic activity/Vol] 11 U/L Normal 7-52 [facility] Comment on above: Order Comment: Reaso n for Exam Hyperlipidemia Performed By: #### T SH3, LIPID, CMP #### [address] Anion gap [Moles/Vol] 10.1 mmol/L Normal 6.0-15.0 [facility] Comment on above: Order Comment: Reaso n for Exam Hyperlipidemia Performed By: #### T SH3, LIPID, CMP #### [facility] [address] [place] [address] [place] AST [Catalytic activity/Vol] 15 U/L Normal 13-39 [facility] Comment on above: Order Comment: Reaso n for Exam Hyperlipidemia Performed By: #### T SH3, LIPID, CMP #### [address] Bilirubin [Mass/Vol] 0.6 mg/dL Normal 0.3-1.0 [facility] Comment on above: Order Comment: Reaso n for Exam Hyperlipidemia Performed By: #### T SH3, LIPID, CMP #### [facility] [address] [place] [address] [place] Calcium [Mass/Vol] 9.4 mg/dL Normal 8.6-10.3 [facility] Comment on above: Order Comment: Reaso n for Exam Hyperlipidemia Performed By: #### T SH3, LIPID, CMP #### [facility] [address] [place] [address] [place] Chloride [Moles/Vol] 107 mmol/L Normal 98-107 [facility] Comment on above: Order Comment: Reaso n for Exam Hyperlipidemia Performed By: #### T SH3, LIPID, CMP #### [facility] [address] [place] [address] [place] CO2 [Moles/Vol] 28.2 mmol/L Normal 21.0-31.0 [facility] Comment on above: Order Comment: Reaso n for Exam Hyperlipidemia Performed By: #### T SH3, LIPID, CMP #### [facility] [address] [place] [address] [place] Creatinine [Mass/Vol] 0.77 mg/dL Normal 0.60-1.20 [facility] Comment on above: Order Comment: Reaso n for Exam Hyperlipidemia Performed By: #### T SH3, LIPID, CMP #### [facility] [address] [place] [address] [place] GFR/1.73 sq M.predicted MDRD (S/P/Bld) [Vol rate/Area] mL/min/{1.73_m2} Normal [facility] Comment on above: Order Comment: Reaso n for Exam Hyperlipidemia Performed By: #### T SH3, LIPID, CMP #### [facility] [address] [place] [address] [place] Globulin (S) [Mass/Vol] 2.2 g/dL Normal [facility] Comment on above: Order Comment: Reaso n for Exam Hyperlipidemia Performed By: #### T SH3, LIPID, CMP #### [facility] [address] [place] [address] [place] Glucose [Mass/Vol] 96 mg/dL Normal 70-100 [facility] Comment on above: Order Comment: Reaso n for Exam Hyperlipidemia Result Comment: [place] Glucose Reference Range is dependent on time and content of last meal. Glucose of more than 200 mg/dL in a nonstressed, ambulatory subject supports the diagnosis of Diabetes Mellitus. ADA recommended reference range Performed By: #### T SH3, LIPID, CMP #### [address] Potassium [Moles/Vol] 4.3 mmol/L Normal 3.5-5.1 [facility] Comment on above: Order Comment: Reaso n for Exam Hyperlipidemia Performed By: #### T SH3, LIPID, CMP #### [address] Protein [Mass/Vol] 6.1 g/dL Low 6.4-8.9 [facility] Comment on above: Order Comment: Reaso n for Exam Hyperlipidemia Performed By: #### T SH3, LIPID, CMP #### [address] Sodium [Moles/Vol] 141 mmol/L Normal 136-145 [facility] Comment on above: Order Comment: Reaso n for Exam Hyperlipidemia Performed By: #### T SH3, LIPID, CMP #### [address] Urea nitrogen [Mass/Vol] 18 mg/dL Normal 7-25 [facility] Comment on above: Order Comment: Reaso n for Exam Hyperlipidemia Performed By: #### T SH3, LIPID, CMP #### [address] Creatinine [Mass/volume] in Serum or PlasmaOrdered By: Prem Goel on 03-12-2023 Creatinine [Mass/Vol] 0.77 mg/dL 0.60-1.20 [facility] Eosinophils Auto (Bld) [#/Vo l]Ordered By: Prem Goel on 03-12-2023 Eosinophils (Bld) [#/Vol] 0.1 10*3/uL 0.0-0.45 [facility] Eosinophils/100 WBC Auto (Bl d)Ordered By: Prem Goel on 03-12-2023 Eosinophils/100 WBC (Bld) 2.3 % . [facility] Erythrocyte distribution wid th Auto (RBC) [Ratio]Ordered By: Prem Goel on 03-12-2023 Erythrocyte distribution width (RBC) [Ratio] 12.9 % 11.9-15.3 [facility] Globulin Calc (S) [Mass/Vol] Ordered By: Prem Goel on 03-12-2023 Globulin (S) [Mass/Vol] 2.2 g/dL [facility] Glucose [Mass/volume] in Ser um or PlasmaOrdered By: Prem Goel on 03-12-2023 Glucose [Mass/Vol] 96 mg/dL 70-100 [facility] Comment on above: ADA recommended refe rence rangeRandom Glucose Reference Range is dependent on time and content of last meal. Glucose of more than 200 mg/dL in a nonstressed, ambulatory subject supports the diagnosis of Diabetes Mellitus. Hematocrit Auto (Bld) [Volum e fraction]Ordered By: Prem Goel on 03-12-2023 Hematocrit (Bld) [Volume fraction] 45.2 % 34.0-46.4 [facility] Hemoglobin [Mass/volume] in BloodOrdered By: Prem Goel on 03-12-2023 Hemoglobin (Bld) [Mass/Vol] 14.9 g/dL 11.8-15.4 [facility] Leukocytes [#/volume] correc guillermina for nucleated erythrocytes in Blood by Automated counOrdered By: Prem Goel on 03-12-2023 WBC corrected for nucl RBC Auto (Bld) [#/Vol] 6.1 10*3/uL 3.8-11.6 [facility] Lipid Panelon 03-12-2023 Cholesterol [Mass/Vol] 228 mg/dL High 140-200 [facility] Comment on above: Order Comment: Reaso n for Exam Hyperlipidemia Result Comment: Chol less than 200 mg/dl low risk Chol 201-239 mg/dl borderline risk Chol 240 mg/dl and greater high risk Performed By: #### T SH3, LIPID, CMP #### [facility] [address] [place] [address] [place] Cholesterol in HDL [Mass/Vol] 66 mg/dL Normal 23-92 [facility] Comment on above: Order Comment: Reaso n for Exam Hyperlipidemia Result Comment: HDL CHOL ATP-III CLASSIFICATION Cardiovascular Risk HDL > or equal to 60 mg/dL LOW HDL < 40 mg/dL HIGH Performed By: #### T SH3, LIPID, CMP #### [facility] [address] [place] [address] [place] Cholesterol.total/Araceli sterol in HDL [Mass ratio] 3.5 {ratio} Normal <5.0 [facility] Comment on above: Order Comment: Reaso n for Exam Hyperlipidemia Performed By: #### T SH3, LIPID, CMP #### [facility] [address] [place] [id number] [place] LDL Cholesterol,Calculated 146 mg/dL High 0-100 [facility] Comment on above: Order Comment: Reaso n for Exam Hyperlipidemia Result Comment: LDL ATP III CLASSIFICATION LDL less than 100 mg/dL Optimal LDL 100-129 mg/dL Near or above optimal LDL 130-159 mg/dL Borderline high LDL 160-189 mg/dL High LDL greater than 189 mg/dL Very high Performed By: #### T SH3, LIPID, CMP #### [facility] [address] [place] [id number] [place] Triglyceride w/Reflex 78 mg/dL Normal 0-149 [facility] Comment on above: Order Comment: Reaso n for Exam Hyperlipidemia Result Comment: TRIG ATP III CLASSIFICATION TRIG less than 150 mg/dL Normal TRIG 150-199 mg/dL Borderline high TRIG 200-500 mg/dL High TRIG greater than 500 mg/dL Very high Standard traceable to the Center for Disease Conrtrol and Prevention (CDC) test method. Performed By: #### T SH3, LIPID, CMP #### [facility] [address] [place] [address] [place] VLDL CHOLESTEROL 15 mg/dL Normal [facility] Comment on above: Order Comment: Reaso n for Exam Hyperlipidemia Performed By: #### T SH3, LIPID, CMP #### [facility] [address] [place] [address] [place] Lymphocytes Auto (Bld) [#/Vo l]Ordered By: Prem Goel on 03-12-2023 Lymphocytes (Bld) [#/Vol] 2.6 10*3/uL 1.00-4.8 [facility] Lymphocytes/100 WBC Auto (Bl d)Ordered By: Prem Goel on 03-12-2023 Lymphocytes/100 WBC (Bld) 42.3 % . [facility] MCH Auto (RBC) [Entitic mass ]Ordered By: Prem Goel on 03-12-2023 MCH (RBC) [Entitic mass] 29.8 pg 24.7-34.3 [facility] MCHC Auto (RBC) [Mass/Vol]Or dered By: Prem Goel on 03-12-2023 MCHC (RBC) [Mass/Vol] 33.0 g/dL 32.0-35.0 [facility] MCV Auto (RBC) [Entitic vol] Ordered By: Prem Goel on 03-12-2023 MCV (RBC) [Entitic vol] 90.5 fL 80-[address] [facility] Monocytes Auto (Bld) [#/Vol] Ordered By: Prem Goel on 03-12-2023 Monocytes (Bld) [#/Vol] 0.6 10*3/uL 0.0-0.8 [facility] Monocytes/100 WBC Auto (Bld) Ordered By: Prem Goel on 03-12-2023 Monocytes/100 WBC (Bld) 9.1 % . [facility] Neutrophils Auto (Bld) [#/Vo l]Ordered By: Prem Goel on 03-12-2023 Neutrophils (Bld) [#/Vol] 2.8 10*3/uL 1.8-7.7 [facility] Neutrophils/100 WBC Auto (Bl d)Ordered By: Prem Goel on 03-12-2023 Neutrophils/100 WBC (Bld) 45.6 % . [facility] No Panel InformationOrdered By: Prem Goel on 03-12-2023 Estimated GFR (CKD-EPI) > 60.0 mL/Min [facility] Creatinine Clearance (Chem N/A [facility] Nucleated erythrocytes [Pres ence] in Blood by Automated countOrdered By: Prem Goel on 03-12-2023 Nucleated RBC Auto Ql (Bld) 0.1 /100{WBC} 0-0.5 [facility] Platelet mean volume Auto (B ld) [Entitic vol]Ordered By: Prem Goel on 03-12-2023 Platelet mean volume (Bld) [Entitic vol] 10.2 fL 6.3-10.7 [facility] Platelets Auto (Bld) [#/Vol] Ordered By: Prem Goel on 03-12-2023 Platelets (Bld) [#/Vol] 201 10*3/uL 150-450 [facility] Potassium [Moles/volume] in Serum or PlasmaOrdered By: Prem Goel on 03-12-2023 Potassium [Moles/Vol] 4.3 mmol/L 3.5-5.1 [facility] Protein [Mass/volume] in Ser um or PlasmaOrdered By: Prem Goel on 03-12-2023 Protein [Mass/Vol] 6.1 g/dL 6.4-8.9 [facility] RBC Auto (Bld) [#/Vol]Ordere d By: Prem Goel on 03-12-2023 RBC (Bld) [#/Vol] 4.99 10*6/uL 3.60-5.00 [facility] Serum or plasma albumin/glob ulin mass ratioOrdered By: Prem Goel on 03-12-2023 Albumin/Globulin [Mass ratio] 1.8 {ratio} [facility] Serum or plasma anion gap de terminationOrdered By: Prem Goel on 03-12-2023 Anion gap [Moles/Vol] 10.1 mmol/L 6.0-15.0 [facility] Serum or plasma high density lipoprotein (HDL) cholesterol measurementOrdered By: Prem Goel on 03-12-2023 Cholesterol in HDL [Mass/Vol] 66 mg/dL 23-92 [facility] Comment on above: HDL CHOL ATP-III CLA SSIFICATION Cardiovascular RiskHDL > or equal to 60 mg/dL LOWHDL < 40 mg/dL HIGH Serum or plasma total choles terol/high density lipoprotein (HDL) cholesterol mass ratOrdered By: Prem Goel on 03-12-2023 Cholesterol.total/Araceli sterol in HDL [Mass ratio] 3.5 {ratio} <5.0 [facility] Sodium [Moles/volume] in Ser um or PlasmaOrdered By: Prem Goel on 03-12-2023 Sodium [Moles/Vol] 141 mmol/L 136-145 [facility] Thyroid Stimulating Hormoneo n 03-12-2023 TSH Qn 1.91 m[IU]/L Normal 0.45-5.[address] [facility] Comment on above: Order Comment: Reaso n for Exam Hyperlipidemia Result Comment: PERF ORMED BY: [place] [address] PATHOLOGIST [employer] OPERATOR BEV TALBERT M.D. Performed By: #### T SH3, LIPID, CMP #### [address] Thyrotropin [Units/volume] i n Serum or PlasmaOrdered By: Prem Goel on 03-12-2023 TSH Qn 1.91 m[IU]/L 0.45-5.33 [facility] Triglyceride [Mass/volume] i n Serum or PlasmaOrdered By: Prem Goel on 03-12-2023 Triglyceride [Mass/Vol] 78 mg/dL 0-[address] [facility] Comment on above: TRIG ATP III CLASSIF ICATIONTRIG less than 150 mg/dL NormalTRIG 150-199 mg/dL Borderline highTRIG 200-500 mg/dL High TRIG greater than 500 mg/dL Very highStandard traceable to the Center for Disease Conrtrol and Prevention (CDC) test method. Urea nitrogen [Mass/volume] in Serum or PlasmaOrdered By: Prem Goel on 03-12-2023 Urea nitrogen [Mass/Vol] 18 mg/dL 7-25 [facility] WBC Auto (Bld) [#/Vol]Ordere d By: Prem Goel on 03-12-2023 WBC (Bld) [#/Vol] 6.1 10*3/uL 3.8-11.6 [facility] A1C with Estimated Average G luon 10-30-2022 Glucose [Mass/Vol] 128 mg/dL Normal [facility] Comment on above: Order Comment: Reaso n for Exam Hyperglycemia Result Comment: PERF ORMED BY: [place] [address] PATHOLOGIST [employer] RECOV[employer] OPERATOR BEV TALBERT M.D. Performed By: #### A 1C WT eA #### [address] HbA1c (Bld) [Mass fraction] 6.1 % High 4.3-5.6 [facility] Comment on above: Order Comment: Reaso n for Exam Hyperglycemia Result Comment: Incr eased risk for diabetes: 5.7 - 6.4 diabetes: >6.4 glycemic control for adults with diabetes: <7.0 Performed By: #### A 1C WT eA #### [address] Complete Blood Count Auto Di ffon 10-30-2022 Basophils (Bld) [#/Vol] 0.0 10*3/uL Normal 0.0-0.2 [facility] Comment on above: Order Comment: Reaso n for Exam Hyperlipidemia Result Comment: PERF ORMED BY: [place] [address] PATHOLOGIST [employer] RECOV[employer] OPERATOR BEV TALBERT M.D. Performed By: #### L IPID, TSH3, CBC, CMP #### [place] [address] [place] Basophils/100 WBC (Bld) 0.6 % Normal . [facility] Comment on above: Order Comment: Reaso n for Exam Hyperlipidemia Performed By: #### L IPID, TSH3, CBC, CMP #### [facility] [address] [place] [address] [place] Eosinophils (Bld) [#/Vol] 0.5 10*3/uL High 0.0-0.45 [facility] Comment on above: Order Comment: Reaso n for Exam Hyperlipidemia Performed By: #### L IPID, TSH3, CBC, CMP #### [place] [address] [place] Eosinophils/100 WBC (Bld) 8.1 % Normal . [facility] Comment on above: Order Comment: Reaso n for Exam Hyperlipidemia Performed By: #### L IPID, TSH3, CBC, CMP #### [address] Erythrocyte distribution width (RBC) [Ratio] 13.8 % Normal 11.9-15.3 [facility] Comment on above: Order Comment: Reaso n for Exam Hyperlipidemia Performed By: #### L IPID, TSH3, CBC, CMP #### [address] Hematocrit (Bld) [Volume fraction] 43.9 % Normal 34.0-46.4 [facility] Comment on above: Order Comment: Reaso n for Exam Hyperlipidemia Performed By: #### L IPID, TSH3, CBC, CMP #### [address] Hemoglobin (Bld) [Mass/Vol] 14.6 g/dL Normal 11.8-15.4 [facility] Comment on above: Order Comment: Reaso n for Exam Hyperlipidemia Performed By: #### L IPID, TSH3, CBC, CMP #### [address] Lymphocytes (Bld) [#/Vol] 1.5 10*3/uL Normal 1.00-4.8 [facility] Comment on above: Order Comment: Reaso n for Exam Hyperlipidemia Performed By: #### L IPID, TSH3, CBC, CMP #### [address] Lymphocytes/100 WBC (Bld) 27.1 % Normal . [facility] Comment on above: Order Comment: Reaso n for Exam Hyperlipidemia Performed By: #### L IPID, TSH3, CBC, CMP #### [address] MCH (RBC) [Entitic mass] 30.0 pg Normal 24.7-34.3 [facility] Comment on above: Order Comment: Reaso n for Exam Hyperlipidemia Performed By: #### L IPID, TSH3, CBC, CMP #### [address] [place] [address] [place] MCV (RBC) [Entitic vol] 90.4 fL Normal 80-100 [facility] Comment on above: Order Comment: Reaso n for Exam Hyperlipidemia Performed By: #### L IPID, TSH3, CBC, CMP #### [address] Mean Corpuscular HGB Conc 33.3 g/dL Normal 32.0-35.0 [facility] Comment on above: Order Comment: Reaso n for Exam Hyperlipidemia Performed By: #### L IPID, TSH3, CBC, CMP #### [facility] [address] [place] [address] Monocytes (Bld) [#/Vol] 0.6 10*3/uL Normal 0.0-0.8 [facility] Comment on above: Order Comment: Reaso n for Exam Hyperlipidemia Performed By: #### L IPID, TSH3, CBC, CMP #### [facility] [address] [place] [address] [place] Monocytes/100 WBC (Bld) 10.7 % Normal . [facility] Comment on above: Order Comment: Reaso n for Exam Hyperlipidemia Performed By: #### L IPID, TSH3, CBC, CMP #### [address] Neutrophils (Bld) [#/Vol] 3.0 10*3/uL Normal 1.8-7.7 [facility] Comment on above: Order Comment: Reaso n for Exam Hyperlipidemia Performed By: #### L IPID, TSH3, CBC, CMP #### [place] [address] [place] Neutrophils/100 WBC (Bld) 53.5 % Normal . [facility] Comment on above: Order Comment: Reaso n for Exam Hyperlipidemia Performed By: #### L IPID, TSH3, CBC, CMP #### [facility] [address] [place] [address] NRBC% 0.1 /100{WBC} Normal 0-0.5 [facility] Comment on above: Order Comment: Reaso n for Exam Hyperlipidemia Performed By: #### L IPID, TSH3, CBC, CMP #### [facility] [address] Platelet mean volume (Bld) [Entitic vol] 9.7 fL Normal 6.3-10.[address] [facility] Comment on above: Order Comment: Reaso n for Exam Hyperlipidemia Performed By: #### L IPID, TSH3, CBC, CMP #### [facility] [address] [place] [address] [place] Platelets (Bld) [#/Vol] 196 10*3/uL Normal 150-450 [facility] Comment on above: Order Comment: Reaso n for Exam Hyperlipidemia Performed By: #### L IPID, TSH3, CBC, CMP #### [address] RBC (Bld) [#/Vol] 4.86 10*6/uL Normal 3.60-5.00 [facility] Comment on above: Order Comment: Reaso n for Exam Hyperlipidemia Performed By: #### L IPID, TSH3, CBC, CMP #### [address] WBC (Bld) [#/Vol] 5.7 10*3/uL Normal 3.8-11.6 [facility] Comment on above: Order Comment: Reaso n for Exam Hyperlipidemia Performed By: #### L IPID, TSH3, CBC, CMP #### [address] Comprehensive Metabolic Pane [place] 10-30-2022 Albumin [Mass/Vol] 3.6 g/dL Normal 3.5-5.7 [facility] Comment on above: Order Comment: Reaso n for Exam Hyperlipidemia Performed By: #### L IPID, TSH3, CBC, CMP #### [address] Albumin/Globulin [Mass ratio] 1.2 {ratio} Normal [facility] Comment on above: Order Comment: Reaso n for Exam Hyperlipidemia Performed By: #### L IPID, TSH3, CBC, CMP #### [facility] [address] [place] [address] [place] ALP [Catalytic activity/Vol] 102 U/L Normal 34-104 [facility] Comment on above: Order Comment: Reaso n for Exam Hyperlipidemia Performed By: #### L IPID, TSH3, CBC, CMP #### [facility] [address] [place] [id number] [place] ALT [Catalytic activity/Vol] 14 U/L Normal 7-52 [facility] Comment on above: Order Comment: Reaso n for Exam Hyperlipidemia Performed By: #### L IPID, TSH3, CBC, CMP #### [facility] [address] [place] [address] Anion gap [Moles/Vol] 9.0 mmol/L Normal 6.0-15.0 [facility] Comment on above: Order Comment: Reaso n for Exam Hyperlipidemia Performed By: #### L IPID, TSH3, CBC, CMP #### [facility] [address] [place] [address] AST [Catalytic activity/Vol] 18 U/L Normal 13-39 [facility] Comment on above: Order Comment: Reaso n for Exam Hyperlipidemia Performed By: #### L IPID, TSH3, CBC, CMP #### [facility] [address] [place] [address] Bilirubin [Mass/Vol] 0.5 mg/dL Normal 0.3-1.0 [facility] Comment on above: Order Comment: Reaso n for Exam Hyperlipidemia Performed By: #### L IPID, TSH3, CBC, CMP #### [facility] [address] [place] [address] [place] Calcium [Mass/Vol] 9.0 mg/dL Normal 8.6-10.3 [facility] Comment on above: Order Comment: Reaso n for Exam Hyperlipidemia Performed By: #### L IPID, TSH3, CBC, CMP #### [facility] [address] [place] [address] [place] Chloride [Moles/Vol] 106 mmol/L Normal 98-107 [facility] Comment on above: Order Comment: Reaso n for Exam Hyperlipidemia Performed By: #### L IPID, TSH3, CBC, CMP #### [facility] [address] [place] [address] [place] CO2 [Moles/Vol] 30.8 mmol/L Normal 21.0-31.0 [facility] Comment on above: Order Comment: Reaso n for Exam Hyperlipidemia Performed By: #### L IPID, TSH3, CBC, CMP #### [facility] [address] [place] [address] [place] Creatinine [Mass/Vol] 0.75 mg/dL Normal 0.60-1.20 [facility] Comment on above: Order Comment: Reaso n for Exam Hyperlipidemia Performed By: #### L IPID, TSH3, CBC, CMP #### [address] GFR/1.73 sq M.predicted MDRD (S/P/Bld) [Vol rate/Area] mL/min/{1.73_m2} Normal [facility] Comment on above: Order Comment: Reaso n for Exam Hyperlipidemia Performed By: #### L IPID, TSH3, CBC, CMP #### [facility] [address] [place] [address] [place] Globulin (S) [Mass/Vol] 2.9 g/dL Normal T [facility] Comment on above: Order Comment: Reaso n for Exam Hyperlipidemia Performed By: #### L IPID, TSH3, CBC, CMP #### [facility] [address] Glucose [Mass/Vol] 92 mg/dL Normal 70-100 [facility] Comment on above: Order Comment: Reaso n for Exam Hyperlipidemia Result Comment: [place] Glucose Reference Range is dependent on time and content of last meal. Glucose of more than 200 mg/dL in a nonstressed, ambulatory subject supports the diagnosis of Diabetes Mellitus. ADA recommended reference range Performed By: #### L IPID, TSH3, CBC, CMP #### [facility] [address] Potassium [Moles/Vol] 4.8 mmol/L Normal 3.5-5.1 [facility] Comment on above: Order Comment: Reaso n for Exam Hyperlipidemia Performed By: #### L IPID, TSH3, CBC, CMP #### [facility] [address] [place] [address] Protein [Mass/Vol] 6.5 g/dL Normal 6.4-8.9 [facility] Comment on above: Order Comment: Reaso n for Exam Hyperlipidemia Performed By: #### L IPID, TSH3, CBC, CMP #### [facility] [address] [place] [address] Sodium [Moles/Vol] 141 mmol/L Normal 136-145 [facility] Comment on above: Order Comment: Reaso n for Exam Hyperlipidemia Performed By: #### L IPID, TSH3, CBC, CMP #### [address] Urea nitrogen [Mass/Vol] 18 mg/dL Normal 7-25 [facility] Comment on above: Order Comment: Reaso n for Exam Hyperlipidemia Performed By: #### L IPID, TSH3, CBC, CMP #### [facility] [address] [place], [place] [id number] [facility] Lipid Panelon 10-30-2022 Cholesterol [Mass/Vol] 218 mg/dL High 140-200 Th [facility] Comment on above: Order Comment: Reaso n for Exam Hyperlipidemia Result Comment: Chol less than 200 mg/dl low risk Chol 201-239 mg/dl borderline risk Chol 240 mg/dl and greater high risk Performed By: #### L IPID, TSH3, CBC, CMP #### [facility] [address] [place], [place] [id number] [facility] Cholesterol in HDL [Mass/Vol] 51 mg/dL Normal 35-85 [facility] Comment on above: Order Comment: Reaso n for Exam Hyperlipidemia Result Comment: HDL CHOL ATP-III CLASSIFICATION Cardiovascular Risk HDL > or equal to 60 mg/dL LOW HDL < 40 mg/dL HIGH Performed By: #### L IPID, TSH3, CBC, CMP #### [facility] [address] [place], [place] [id number] [facility] Cholesterol.total/Araceli sterol in HDL [Mass ratio] 4.3 {ratio} Normal <5.0 [facility] Comment on above: Order Comment: Reaso n for Exam Hyperlipidemia Performed By: #### L IPID, TSH3, CBC, CMP #### [facility] [address] LDL Cholesterol,Calculated 151 mg/dL High 0-100 [facility] Comment on above: Order Comment: Reaso n for Exam Hyperlipidemia Result Comment: LDL ATP III CLASSIFICATION LDL less than 100 mg/dL Optimal LDL 100-129 mg/dL Near or above optimal LDL 130-159 mg/dL Borderline high LDL 160-189 mg/dL High LDL greater than 189 mg/dL Very high Performed By: #### L IPID, TSH3, CBC, CMP #### [address] Triglyceride w/Reflex 78 mg/dL Normal 0-149 [facility] Comment on above: Order Comment: Reaso n for Exam Hyperlipidemia Result Comment: TRIG ATP III CLASSIFICATION TRIG less than 150 mg/dL Normal TRIG 150-199 mg/dL Borderline high TRIG 200-500 mg/dL High TRIG greater than 500 mg/dL Very high Standard traceable to the Center for Disease Conrtrol and Prevention (CDC) test method. Performed By: #### L IPID, TSH3, CBC, CMP #### [address] VLDL CHOLESTEROL 15 mg/dL Normal [facility] Comment on above: Order Comment: Reaso n for Exam Hyperlipidemia Performed By: #### L IPID, TSH3, CBC, CMP #### [address] Thyroid Stimulating Hormoneo n 10-30-2022 TSH Qn 1.72 m[IU]/L Normal 0.45-5.[address] [facility] Comment on above: Order Comment: Reaso n for Exam Hyperlipidemia Result Comment: PERF ORMED BY: [place] [address] PATHOLOGIST [employer]OV[employer] OPERATOR BEV TALBERT M.D. Performed By: #### L IPID, TSH3, CBC, CMP #### [address] [place] [address] [facility] Albumin [Mass/volume] in Ser um or PlasmaOrdered By: Prem Goel on 04-29-2022 Albumin [Mass/Vol] 3.4 g/dL 3.2-5.5 [facility] Basophils Auto (Bld) [#/Vol] Ordered By: Prem Goel on 04-29-2022 Basophils (Bld) [#/Vol] 0.0 10*3/uL 0.0-0.2 [facility] Basophils/100 WBC Auto (Bld) Ordered By: Prem Goel on 04-29-2022 Basophils/100 WBC (Bld) 0.3 % . [facility] Cholesterol [Mass/volume] in Serum or PlasmaOrdered By: Prem Goel on 04-29-2022 Cholesterol [Mass/Vol] 196 mg/dL 140-200 [facility] Comment on above: Chol less than 200 m g/dl low riskChol 201-239 mg/dl borderline riskChol 240 mg/dl and greater high risk Cholesterol in LDL Calc [Mas s/Vol]Ordered By: Prem Goel on 04-29-2022 Cholesterol in LDL [Mass/Vol] 109 mg/dL 0-100 [facility] Comment on above: LDL ATP III CLASSIFI CATIONLDL less than 100 mg/dL OptimalLDL 100-129 mg/dL Near or above optimalLDL 130-159 mg/dL Borderline highLDL 160-189 mg/dL HighLDL greater than 189 mg/dL Very high Cholesterol in VLDL Calc [Ma ss/Vol]Ordered By: Prem Goel on 04-29-2022 Cholesterol in VLDL [Mass/Vol] 10 mg/dL [facility] Creatinine and Glomerular fi ltration rate.predicted panel (S/P/Bld)Ordered By: Prem Goel on 04-29-2022 Creatinine [Mass/Vol] 0.80 mg/dL 0.44-1.03 [facility] Eosinophils Auto (Bld) [#/Vo l]Ordered By: Prem Goel on 04-29-2022 Eosinophils (Bld) [#/Vol] 0.1 10*3/uL 0.0-0.45 [facility] Eosinophils/100 WBC Auto (Bl d)Ordered By: Prem Goel on 04-29-2022 Eosinophils/100 WBC (Bld) 0.5 % . [facility] Erythrocyte distribution wid th Auto (RBC) [Ratio]Ordered By: Prem Goel on 04-29-2022 Erythrocyte distribution width (RBC) [Ratio] 13.4 % 11.9-15.3 [facility] Estimated glomerular filtrat ion rate (GFR) non- AmericanOrdered By: Prem Goel on 04-29-2022 GFR/1.73 sq M.predicted among non-blacks MDRD (S/P/Bld) [Vol rate/Area] > 60 mL/Min [facility] Globulin Calc (S) [Mass/Vol] Ordered By: Prem Goel on 04-29-2022 Globulin (S) [Mass/Vol] 3.3 g/dL [facility] Hematocrit Auto (Bld) [Volum e fraction]Ordered By: Prem Goel on 04-29-2022 Hematocrit (Bld) [Volume fraction] 46.2 % 34.0-46.4 [facility] Hemoglobin [Mass/volume] in BloodOrdered By: Prem Goel on 04-29-2022 Hemoglobin (Bld) [Mass/Vol] 14.9 g/dL 11.8-15.4 [facility] Laboratory - Hematology and Cell countsOrdered By: Prem Goel on 04-29-2022 Nucleated RBC/100 WBC (Bld) [Ratio] 0.0 % 0-0.5 [facility] Leukocytes [#/volume] in Blo od by Automated countOrdered By: Prem Goel on 04-29-2022 WBC (Bld) [#/Vol] 10.7 10*3/uL 4.5-11.0 [facility] Lymphocytes Auto (Bld) [#/Vo l]Ordered By: Prem Goel on 04-29-2022 Lymphocytes (Bld) [#/Vol] 1.9 10*3/uL 1.00-4.8 [facility] Lymphocytes/100 WBC Auto (Bl d)Ordered By: Prem Goel on 04-29-2022 Lymphocytes/100 WBC (Bld) 17.7 % . [facility] MCH Auto (RBC) [Entitic mass ]Ordered By: Prem Goel on 04-29-2022 MCH (RBC) [Entitic mass] 30.0 pg 24.7-34.3 [facility] MCHC Auto (RBC) [Mass/Vol]Or dered By: Prem Goel on 04-29-2022 MCHC (RBC) [Mass/Vol] 32.1 g/dL 32.0-35.0 [facility] MCV Auto (RBC) [Entitic vol] Ordered By: Prem Goel on 04-29-2022 MCV (RBC) [Entitic vol] 93.4 fL 80-[address] [facility] Monocytes Auto (Bld) [#/Vol] Ordered By: Prem Goel on 04-29-2022 Monocytes (Bld) [#/Vol] 1.1 10*3/uL 0.0-0.8 [facility] Monocytes/100 WBC Auto (Bld) Ordered By: Prem Goel on 04-29-2022 Monocytes/100 WBC (Bld) 10.4 % . [facility] Neutrophils Auto (Bld) [#/Vo l]Ordered By: Prem Goel on 04-29-2022 Neutrophils (Bld) [#/Vol] 7.6 10*3/uL 1.8-7.7 [facility] Neutrophils/100 WBC Auto (Bl d)Ordered By: Prem Goel on 04-29-2022 Neutrophils/100 WBC (Bld) 71.1 % . [facility] No Panel InformationOrdered By: Prem Goel on 04-29-2022 Estimated GFR () > 60 mL/Min [facility] Comment on above: GFR estimated refere nce range: According to KDOQI guidelines, <60 ml/min/1.73m2 is sufficient to diagnose a patient with chronic kidney disease. Pharmacy Creatinine Clearance (Chem N/A [facility] Platelet mean volume Auto (B ld) [Entitic vol]Ordered By: Prem Goel on 04-29-2022 Platelet mean volume (Bld) [Entitic vol] 10.2 fL 6.3-10.7 [facility] Platelets Auto (Bld) [#/Vol] Ordered By: Prem Goel on 04-29-2022 Platelets (Bld) [#/Vol] 238 10*3/uL 150-450 [facility] Protein [Mass/volume] in Ser um or PlasmaOrdered By: Prem Goel on 04-29-2022 Protein [Mass/Vol] 6.7 g/dL 6.1-7.9 [facility] RBC Auto (Bld) [#/Vol]Ordere d By: Prem Goel on 04-29-2022 RBC (Bld) [#/Vol] 4.95 10*6/uL 3.60-5.00 [facility] Serum or plasma alanine tobias otransferase measurement without P-5'-P (enzymatic activiOrdered By: Prem Goel on 04-29-2022 ALT No additional P-5'-P [Catalytic activity/Vol] 18 U/L 10-60 [facility] Serum or plasma albumin/glob ulin mass ratioOrdered By: Prem Goel on 04-29-2022 Albumin/Globulin [Mass ratio] 1.0 {ratio} [facility] Serum or plasma alkaline joshua sphatase measurement (enzymatic activity/volume)Ordered By: Prem Goel on 04-29-2022 ALP [Catalytic activity/Vol] 100 U/L 32-92 [facility] Serum or plasma anion gap de terminationOrdered By: Prem Goel on 04-29-2022 Anion gap [Moles/Vol] 10.5 mmol/L 6.0-15.0 [facility] Serum or plasma aspartate am inotransferase measurement (enzymatic activity/volume)Ordered By: Prem Goel on 04-29-2022 AST [Catalytic activity/Vol] 19 U/L 10-42 [facility] Serum or plasma calcium erica urement (mass/volume)Ordered By: Prem Goel on 04-29-2022 Calcium [Mass/Vol] 9.2 mg/dL 8.2-10.2 [facility] Serum or plasma chloride omaira surement (moles/volume)Ordered By: Prem Goel on 04-29-2022 Chloride [Moles/Vol] 102 mmol/L 95-114 [facility] Serum or plasma glucose erica urement (mass/volume)Ordered By: Prem Goel on 04-29-2022 Glucose [Mass/Vol] 111 mg/dL 70-100 [facility] Comment on above: ADA recommended refe rence rangeRandom Glucose Reference Range is dependent on time and content of last meal. Glucose of more than 200 mg/dL in a nonstressed, ambulatory subject supports the diagnosis of Diabetes Mellitus. Serum or plasma high density lipoprotein (HDL) cholesterol measurementOrdered By: Prem Goel on 04-29-2022 Cholesterol in HDL [Mass/Vol] 76 mg/dL 35-85 [facility] Comment on above: HDL CHOL ATP-III CLA SSIFICATION Cardiovascular RiskHDL > or equal to 60 mg/dL LOWHDL < 40 mg/dL HIGH Serum or plasma potassium me asurement (moles/volume)Ordered By: Prem Goel on 04-29-2022 Potassium [Moles/Vol] 4.0 mmol/L 3.5-5.1 [facility] Serum or plasma sodium measu rement (moles/volume)Ordered By: Prem Goel on 04-29-2022 Sodium [Moles/Vol] 137 mmol/L 136-146 [facility] Serum or plasma total biliru bin measurement (mass/volume)Ordered By: Prem Goel on 04-29-2022 Bilirubin [Mass/Vol] 0.8 mg/dL 0.3-1.2 [facility] Serum or plasma total carbon dioxide measurement (moles/volume)Ordered By: Prem Goel on 04-29-2022 CO2 [Moles/Vol] 28.5 mmol/L 22.0-30.0 [facility] Serum or plasma total choles terol/high density lipoprotein (HDL) cholesterol mass ratOrdered By: Prem Goel on 04-29-2022 Cholesterol.total/Araceli sterol in HDL [Mass ratio] 2.6 {ratio} <5.0 [facility] Serum or plasma urea nitroge n measurement (mass/volume)Ordered By: Prem Goel on 04-29-2022 Urea nitrogen [Mass/Vol] 14 mg/dL 9-23 [facility] TSH DL <= 0.005 mIU/L QnOrde red By: Prem Goel on 04-29-2022 TSH Qn 1.74 m[IU]/L 0.45-5.33 [facility] Triglyceride [Mass/volume] i n Serum or PlasmaOrdered By: Prem Goel on 04-29-2022 Triglyceride [Mass/Vol] 53 mg/dL 35-[address] [facility] Comment on above: TRIG ATP III CLASSIF ICATIONTRIG less than 150 mg/dL NormalTRIG 150-199 mg/dL Borderline highTRIG 200-500 mg/dL High TRIG greater than 500 mg/dL Very highStandard traceable to the Center for Disease Conrtrol and Prevention (CDC) test method. A1C HEMOGLOBINon 04-30-2021 HbA1c (Bld) [Mass fraction] 5.8 % [email or web address] Other HbA1c (Bld) [Mass fraction]o n 04-30-2021 A1C HEMOGLOBIN [employer] Other [facility] CARDIAC STRESS/REST (DOUGLAS CARDIAL PERFUSION/MIBI)on 04-09-[address] [facility] CARDIAC STRESS/REST (MYOCARDIAL PERFUSION/MIBI) Patient Name: MARY WILKERSON STUDY: MYOCARDIAL PERFUSION STRESS TEST WITH LEXISCAN Performing facility: [facility], [address] [place] [address] Provider: WP SMYTH PCP: Dr. PREM GOEL Supervising provider: WP SMYTH INDICATION: CP HISTORY: Gender: F; Age: 84 y/o ; Height: 157.48 cm; Weight: 78.9829924 kg. High Cholesterol; CP Family HX CAD; Denies smoking. COMPARISON: Previous nuclear testing completed at [facility]. ACCESSION NUMBER(S): [id number] ORDERING CLINICIAN: MATT SMYTH TECHNIQUE: ONE DAY [...] comparison. Electronically signed by: BRIELLE DUVAL MD [facility] CARDIAC STRESS/REST INJE CTIONon 04-09-[address] [facility] CARDIAC STRESS/REST INJECTION Patient Name: MARY WILKERSON STUDY: MYOCARDIAL PERFUSION STRESS TEST WITH LEXISCAN Performing facility: [facility], [address] [place] [address], [address], [address] Provider: WP SMYTH PCP: Dr. PREM GOEL Supervising provider: WP SMYTH INDICATION: CP HISTORY: Gender: F; Age: 84 y/o ; Height: 157.48 cm; Weight: 78.5595868 kg. High Cholesterol; CP Family HX CAD; Denies smoking. COMPARISON: Previous nuclear testing completed at [facility]. ACCESSION NUMBER(S): [id number] ORDERING CLINICIAN: MATT SMYTH TECHNIQUE: ONE DAY [...] comparison. Electronically signed by: BRIELLE DUVAL MD [facility] PART 2 STRESS OR REST (N O CHARGE)on 04-09-[address] [facility] PART 2 STRESS OR REST (NO CHARGE) Patient Name: MARY WILKERSON STUDY: MYOCARDIAL PERFUSION STRESS TEST WITH LEXISCAN Performing facility: [facility], [address] [place] [address], [address], [address] Provider: WP SMYTH PCP: Dr. PREM GOEL Supervising provider: WP SMYTH INDICATION: CP HISTORY: Gender: F; Age: 84 y/o ; Height: 157.48 cm; Weight: 78.6462053 kg. High Cholesterol; CP Family HX CAD; Denies smoking. COMPARISON: Previous nuclear testing completed [id number] [address] [facility]. ACCESSION NUMBER(S): [id number] ORDERING CLINICIAN: MATT SMYTH TECHNIQUE: ONE DAY [...] comparison. Electronically signed by: BRIELLE DUVAL MD [facility] Vital Signs Date Time Vital Sign Value Performing Clinician Facility 12-29-2023 10:06-0400 Body height 154.94 cm DO Prem Gasngos Work Phone: [facility] 12-29-2023 10:06-0400 Body mass index (BMI) [Ratio] 30.2 kg/m2 DO Prem Kuns Work Phone: [facility] 12-29-2023 10:06-0400 Body weight 72.57 kg DO Prem Kuns Work Phone: [facility] 12-29-2023 10:06-0400 Diastolic blood pressure 80 mm[Hg] DO Prem Kuns Work Phone: [facility] 12-29-2023 10:06-0400 Heart rate 56 /min DO Prem Kuns Work Phone: [facility] 12-29-2023 10:06-0400 Respiratory rate 16 /min DO Prem Kuns Work Phone: [facility] 12-29-2023 10:06-0400 SaO2% (BldA) [Mass fraction] 96 % DO Prem Kuns Work Phone: [facility] 12-29-2023 10:06-0400 Systolic blood pressure 124 mm[Hg] DO Prem Kuns Work Phone: [facility] 09-24-2023 09:41-0400 Body height 154.94 cm DO Prem Kuns Work Phone: [facility] 09-24-2023 09:41-0400 Body mass index (BMI) [Ratio] 30.9 kg/m2 DO Prem Kuns Work Phone: [facility] 09-24-2023 09:41-0400 Body weight 74.38 kg DO Prem Kuns Work Phone: [facility] 09-24-2023 09:41-0400 Diastolic blood pressure 80 mm[Hg] DO Prem Kuns Work Phone: [facility] 09-24-2023 09:41-0400 Heart rate 57 /min DO Prem Kuns Work Phone: [facility] 09-24-2023 09:41-0400 Respiratory rate 16 /min DO Prem Kuns Work Phone: [facility] 09-24-2023 09:41-0400 SaO2% (BldA) [Mass fraction] 92 % DO Prem Kuns Work Phone: [facility] 09-24-2023 09:41-0400 Systolic blood pressure 138 mm[Hg] DO Prem Kuns Work Phone: [facility] 03-17-2023 08:45-0400 Body height 154.94 cm Prem Gasngos Other [facility] [employer] Other 03-17-2023 08:45-0400 Body mass index (BMI) [Ratio] 30.98 kg/m2 Prem Kuns Other [email or web address] Other 03-17-2023 08:45-0400 Body weight 74.39 kg Prem Kuns Other [email or web address] Other 03-17-2023 08:45-0400 Diastolic blood pressure 76 mm[Hg] Prem Kuns Other [email or web address] Other 03-17-2023 08:45-0400 Respiratory rate 16 /min Prem Kuns Other [email or web address] Other 03-17-2023 08:45-0400 SaO2% (BldA) [Mass fraction] 96 % Prem Kuns Other [email or web address] Other 03-17-2023 08:45-0400 Systolic blood pressure 120 mm[Hg] Prem Kuns Other [email or web address] Other 11-12-2022 14:45-0400 Body height 154.94 cm Prem Kuns Other [email or web address] Other 11-12-2022 14:45-0400 Body mass index (BMI) [Ratio] 31.36 kg/m2 Prem Kuns Other [email or web address] Other 11-12-2022 14:45-0400 Body weight 75.3 kg Prem Kuns Other [email or web address] Other 11-12-2022 14:45-0400 Diastolic blood pressure 68 mm[Hg] Prem Kuns Other [email or web address] Other 11-12-2022 14:45-0400 Respiratory rate 16 /min Prem Kuns Other [email or web address] Other 11-12-2022 14:45-0400 SaO2% (BldA) [Mass fraction] 93 % Prem Kuns Other [email or web address] Other 11-12-2022 14:45-0400 Systolic blood pressure 124 mm[Hg] Prem Kuns Other [email or web address] Other 01-28-2022 11:15-0400 Body height 154.94 cm Prem Kuns Other [email or web address] Other 01-28-2022 11:15-0400 Body mass index (BMI) [Ratio] 30.98 kg/m2 Prem Kuns Other [email or web address] Other 01-28-2022 11:15-0400 Body weight 74.39 kg Prem Kuns Other [email or web address] Other 01-28-2022 11:15-0400 Diastolic blood pressure 82 mm[Hg] Prem Kuns Other [email or web address] Other 01-28-2022 11:15-0400 Respiratory rate 18 /min Prem Kuns Other [email or web address] Other 01-28-2022 11:15-0400 SaO2% (BldA) [Mass fraction] 95 % Prem Kuns Other [email or web address] Other 01-28-2022 11:15-0400 Systolic blood pressure 142 mm[Hg] Prem Kuns Other [email or web address] Other 08-15-2021 14:45-0500 Body height 154.94 cm Prem Kuns Other [email or web address] Other 08-15-2021 14:45-0500 Body mass index (BMI) [Ratio] 30.04 kg/m2 Prem Kuns Other [email or web address] Other 08-15-2021 14:45-0500 Body weight 72.12 kg Prem Kuns Other [email or web address] Other 08-15-2021 14:45-0500 Diastolic blood pressure 80 mm[Hg] Prem Kuns Other [email or web address] Other 08-15-2021 14:45-0500 Respiratory rate 16 /min Prem Kuns Other [email or web address] Other 08-15-2021 14:45-0500 SaO2% (BldA) [Mass fraction] 99 % Prem Kuns Other [email or web address] Other 08-15-2021 14:45-0500 Systolic blood pressure 142 mm[Hg] Prem Kuns Other [email or web address] Other 04-30-2021 11:45-0500 Body height 154.94 cm Prem Kuns Other [email or web address] Other 04-30-2021 11:45-0500 Body mass index (BMI) [Ratio] 29.74 kg/m2 Prem Kuns Other [email or web address] Other 04-30-2021 11:45-0500 Body weight 71.4 kg Prem Kuns Other [email or web address] Other 04-30-2021 11:45-0500 Diastolic blood pressure 87 mm[Hg] Prem Kuns Other [email or web address] Other 04-30-2021 11:45-0500 Respiratory rate 18 /min Prem Kuns Other [email or web address] Other 04-30-2021 11:45-0500 SaO2% (BldA) [Mass fraction] 93 % Prem Kuns Other [email or web address] Other 04-30-2021 11:45-0500 Systolic blood pressure 136 mm[Hg] Prem Kuns Other [email or web address] Other 02-28-2021 11:15-0400 Body height 154.94 cm Prem Kuns Other [email or web address] Other 02-28-2021 11:15-0400 Body mass index (BMI) [Ratio] 29.85 kg/m2 Prem Kuns Other [email or web address] Other 02-28-2021 11:15-0400 Body weight 71.67 kg Prem Kuns Other [email or web address] Other 02-28-2021 11:15-0400 Diastolic blood pressure 86 mm[Hg] Prem Kuns Other [email or web address] Other 02-28-2021 11:15-0400 Respiratory rate 16 /min Prem Kuns Other [email or web address] Other 02-28-2021 11:15-0400 SaO2% (BldA) [Mass fraction] 97 % Prem Kuns Other [email or web address] Other 02-28-2021 11:15-0400 Systolic blood pressure 134 mm[Hg] Prem Kuns Other [facility] [employer] Other Encounters Encounter Date Encounter Type Care Provider Facility Start: 12-29-2023 End: 12-29-2023 ambulatory DO Prem Kuns Work Phone: [facility] Work Phone: Start: 12-29-2023 End: 12-29-2023 Patient encounter procedure DO Prem Kuns Work Phone: [facility] Work Phone: Start: 10-12-2023 End: 10-12-2023 ambulatory DO Prem Kuns Work Phone: [facility] Work Phone: Start: 10-12-2023 End: 10-12-2023 Patient encounter procedure DO Prem Kuns Work Phone: [facility] Work Phone: Start: 10-06-2023 End: 10-06-2023 ambulatory Prem Kuns Facility:[facility] Start: 10-06-2023 End: 10-06-2023 ambulatory DO Prem Kuns Work Phone: [facility] Work Phone: Start: 10-06-2023 End: 10-06-2023 Patient encounter procedure DO Prem Kuns Work Phone: [facility] Work Phone: Start: 09-24-2023 End: 09-24-2023 ambulatory DO Prem Kuns Work Phone: [facility] Work Phone: Start: 09-24-2023 End: 09-24-2023 Patient encounter procedure DO Prem Kuns Work Phone: [facility] Work Phone: Start: 09-18-2023 End: 09-18-2023 ambulatory Prem Kuns Facility:[facility] Start: 09-18-2023 End: 09-18-2023 ambulatory DO Prem Kuns Work Phone: [facility] Work Phone: Start: 09-18-2023 End: 09-18-2023 Patient encounter procedure DO Prem Kuns Work Phone: [facility] Work Phone: Start: 08-11-2023 Non-patient / Non-visit DO Prem Kuns Work Phone: [facility] Work Phone: Start: 08-07-2023 Non-patient / Non-visit DO Prem Kuns Work Phone: [facility] Work Phone: Start: 08-03-2023 Non-patient / Non-visit DO Prem Kuns Work Phone: [facility] Work Phone: Start: 05-27-2023 End: 05-27-2023 ambulatory Prem Kuns Other [facility] [employer] Other Start: 05-27-2023 Telephone encounter [facility] Start: 03-17-2023 End: 03-17-2023 ambulatory Prem Kuns Other [facility] [employer] Other Start: 03-17-2023 Office outpatient visit 25 minutes [facility] K[facility] Start: 03-12-2023 End: 03-12-2023 ambulatory Prem Kuns Facility:[facility] Start: 03-12-2023 End: 03-12-2023 ambulatory DO Prem Kuns Work Phone: [facility] Work Phone: Start: 03-12-2023 End: 03-12-2023 Patient encounter procedure DO Prem Goel Work Phone: [facility] Work Phone: Start: 01-30-2023 End: 01-30-2023 ambulatory Prem Goel Other [email or web address] Other Start: 01-30-2023 Telephone encounter Prem Goel [facility] Start: 11-12-2022 End: 11-12-2022 ambulatory Prem Goel Other [email or web address] Other Start: 11-12-2022 Office outpatient visit 25 minutes Prem Goel [facility] Start: 11-04-2022 End: 11-04-[address] PREM GOEL Facility:[facility] Start: 11-04-2022 Telephone encounter Prem Goel [facility] Start: 10-30-2022 End: 10-30-2022 ambulatory Prem Goel Facility:[facility] Start: 10-14-2022 End: 10-14-[address] PREM GOEL Facility:[facility] Start: 10-02-2022 End: 10-03-2022 ambulatory DONELL LAKRAJEEVMIPATHJavier . Facility:[facility] Start: 09-09-2022 End: 09-09-[address] PREM GOEL Facility:[facility] Start: 09-04-2022 End: 09-05-[address] PREM GOEL Facility:[facility] Start: 08-19-2022 End: 08-19-[address] BILL RAMOS Facility:[facility] Start: 07-22-2022 End: 07-23-[address] PREM GOEL Facility:[facility] Start: 05-08-2022 End: 05-09-2022 ambulatory AIXA Sawyer Facility:[facility] Start: 05-06-2022 Annual wellness visit Prem Ku ns Other [email or web address] Other Start: 04-29-2022 End: 04-29-2022 ambulatory DO Prem Raulitos Work Phone: [facility] Work Phone: Start: 04-29-2022 End: 04-29-2022 Patient encounter procedure DO Prem Raulitos Work Phone: [facility] Start: 03-06-2022 End: 03-07-[address] KHOA RAMOS . Facility:[facility] Start: 02-27-2022 End: 02-27-2022 ambulatory Prem Raulitos Other [email or web address] Other Start: 02-27-2022 Telephone encounter Prem Raulitos [facility] Start: 02-18-2022 End: 02-18-[address] KHOA RAMOS . Facility:[facility] Start: 01-28-2022 End: 01-28-2022 ambulatory Prem Raulitos Other [email or web address] Other Start: 01-28-2022 Office outpatient visit 15 minutes Prem Raulitos [facility] Start: 01-21-2022 End: 01-22-[address] KHOA RAMOS . Facility:[facility] Start: 12-02-2021 End: 12-02-2021 ambulatory Prem Raulitos Other [email or web address] Other Start: 12-02-2021 Telephone encounter Prem Kuns [facility] Start: 11-28-2021 End: 11-28-2021 ambulatory Prem Kuns Other [email or web address] Other Start: 11-28-2021 Telephone encounter Prem Kuns [facility] Start: 10-02-2021 End: 10-02-2021 ambulatory Prem Kuns Other [email or web address] Other Start: 10-02-2021 Telephone encounter Prem Kuns [facility] Start: 09-10-2021 End: 09-10-2021 ambulatory Prem Kuns Other [email or web address] Other Start: 09-10-2021 Telephone encounter Prem Kuns [facility] Start: 08-15-2021 End: 08-15-2021 ambulatory Prem Kuns Other [email or web address] Other Start: 08-15-2021 Office outpatient visit 25 minutes Prem Kuns [facility] Start: 08-12-2021 End: 08-12-2021 ambulatory Prem Kuns Other [email or web address] Other Start: 08-12-2021 Telephone encounter Prem Kuns [facility] Start: 06-13-2021 End: 06-13-2021 ambulatory Prem Kuns Other [email or web address] Other Start: 06-13-2021 Telephone encounter Prem Kuns [facility] Start: 04-30-2021 End: 04-30-2021 ambulatory Prem Kuns Other [email or web address] Other Start: 04-30-2021 Office outpatient visit 25 minutes Prem Kuns [facility] Start: 02-28-2021 End: 02-28-2021 ambulatory Prem Kuns Other [email or web address] Other Start: 02-28-2021 Patient encounter procedure Prem Kuns [facility] Start: 08-18-2019 Annual wellness visit Prem Gomez ns Other [email or web address] Other Procedures Date Procedure Procedure Detail Performing Clinician Start: 10-12-2023 Quick Strep (POC) DO Br ett Kuns Work Phone: Start: 10-12-2023 RSV (POC) DO Prem K uns Work Phone: Plan of Treatment Date Care Activity Detail Author Comprehensive metabo lic 2000 panel - Serum or Plasma [facility] enter Glucose measurement estimated from glycated hemoglobin [facility] enter Glucose measurement estimated from glycated hemoglobin [facility] enter US [facility] Immunizations Immunization Date Immunization Notes Care Provider Fa cility 06-13-2021 COVID-19 Vaccine Pfizer - Documentation Purposes Only Prem Kuns Other [facility] 07-19-2020 COVID-19 Vaccine Pfizer - Documentation Purposes Only Prem Kuns Other [facility] 06-29-2020 COVID-19 Vaccine Pfizer - Documentation Purposes Only Prem Kuns Other [facility] NEGATED: Highlighted row has not occurred!05-06-2022 influenza, seasonal, injectable Patient Objection Prem Kuns Other [facility] NEGATED: Highlighted row has not occurred!05-06-2022 Prevnar 20 Patient Objection Prem Kuns Other [facility] NEGATED: Highlighted row has not occurred!02-17-2019 influenza, seasonal, injectable Patient Objection Prem Kuns Other [facility] NEGATED: Highlighted row has not occurred!04-07-2017 influenza, seasonal, injectable Patient Objection Prem Kuns Other [facility] Payers Date Payer Category Payer Self-pay [id number] 1957 Private Health Insurance [id number] 1937 Unknown [id number] 1937 Unknown [id number] 1937 Unknown [id number] 1937 Unknown [id number] 1937 Unknown [id number] 1937 Unknown [id number] 1937 Unknown [id number] 1937 Unknown [id number] .[id number] 1937 Unknown [id number] .[id number] 1937 Unknown [id number] .[id number] 1937 Unknown [id number] Medicare Medicare [id number] Unknown [facility] Health Claims [id number] Unknown [id number] Unknown [id number] Unknown [id number] Unknown [id number] Social History Date Type Detail Facility Unknown if ever smoked [email or web address] Other Sex Assigned At Sex Assigned At Bir th [email or web address] Other Start: 03-28-2020 End: 12-29-2023 Tobacco smoking status NHIS Never smoked tobacco (finding) [facility] Start: 1935 Sex Assigned At Female F [facility] Clinical Notes 12-21-2007 to 03-17-2023 Note [...] exercise regimen; we will continue to monitor. [email or web address] Other 08-25-2023 Evaluation note* Encounter Date Diagnosis Assessment Notes Treatment Notes Treatment Clinical Notes Jan, Hyperlipidemia (ICD-10 - E78.5) [email or web address] Other 06-07-2023 Evaluation note* Encounter Date Diagnosis Assessment Notes Treatment Notes Treatment Clinical Notes Nov, Bronchopneumonia (ICD-10 - J18.0) [facility] ER records reviewed from both 11/06 [...] (ICD-10 - R59.0) Noted on imaging from [facility]. I do believe this is likely due to her being ill. She has never smoked. Discussed these findings with the and the patient if symptoms persist we may have pulmonary evaluation but at this time patient appears to be improving [email or web address] Other 04-27-2023 NoteCONSULTATION CONSULTATION DATE: 10/02/2022 TO: [...] our patients to inform us about any smtm-ren-kjgyjjz medications or herbal remedies/nutritional supplements/alternative remedies. 2. [...] treatment options with their primary care provider.[facility] Note CONSULTATION CONSULTATION DATE: 09/04/2022 TO: Dr. [...] mg pills, 1-2 at h.s. as tolerated.[facility] HospitalAzoofjck03-19-8033 NoteCONSULTATION CONSULTATION DATE: 07/22/2022 CHIEF COMPLAINT: Right [...] her understand and would like to proceed,.[facility] 05-08-2022 NoteCONSULTATION CONSULTATION DATE: 05/08/2022 HISTORY [...] in three months' time unless otherwise indicated.[facility] [id number] NoteCONSULTATION CONSULTATION DATE: 03/06/2022 This is a [...] of care and all questions were answered.[facility] [id number] Evaluation note* Encounter Date Diagnosis Assessment Notes Treatment Notes Treatment Clinical Notes Feb, Hyperlipidemia (ICD-10 - E78.5) [email or web address] Other 08-23-2022 Evaluation note* Encounter Date Diagnosis [...] E78.5) Jan, Hyperglycemia (ICD-1 0 - R73.9) [email or web address] Other 08-16-2022 NoteCONSULTATION CONSULTATION DATE: 01/21/2022 CHIEF [...] her understand. CC: Dr. Raphael Escamilla D.O.[facility] HospitalCibhxplz33-09-2923 NotePROCEDURE: Next One's On Me (NOOM) Signa HDXT 1.5 Sagittal T1, T2, STIR [...] and signed by Ralph Figueroa on 10/25/2021 1510[facility]03-10-2022 Evaluation [...] we will attempt to order an MRI. [email or web address] Other 01-06-2022 Evaluation note* Encounter Date Diagnosis Assessment Notes Treatment Notes Treatment Clinical Notes Jun, Hyperlipidemia (ICD-10 - E78.5) [email or web address] Other 11-23-2021 Evaluation note* Encounter Date Diagnosis [...] work-up i.e. CAT scan of her abdomen. [email or web address] Other 09-23-2021 Evaluation note* Encounter Date Diagnosis [...] monitor, a blood work order was provided. [email or web address] Other 07-15-2008 History general Narrative - Reported* Type Description Date Medical History Colonoscopy 12-21-07 Medical History Stress Test 01-18-[address] Scan Abdomen and Pelvis 06-07 Medical History Mammogram 2-11 Medical History Pap 1-10 Medical History 02/2013 [facility] [place] History 10/13/13-mammogram at [facility] Medical History 12/2015 mammogram Medical History 12/2016 Mammogram Medical History 07/2019 Mammogram Medical History Cardiolite 04/09/20 Surgical History wisdom teeth Hospitalization History child [facility] [employer] Other 07-15-2008 History general Narrative - Reported* Type Description Date Medical History Colonoscopy 12-21-07 Medical History Stress Test 01-18-[address] Scan Abdomen and Pelvis 06-07 Medical History Mammogram 2-11 Medical History Pap 1-10 Medical History 02/2013 [facility] Medical History 10/13/13-mammogram at [facility] Medical History 12/2015 mammogram Medical History 12/2016 Mammogram Medical History 07/2019 Mammogram Medical History Cardiolite 04/09/20 Medical History hearing aids Surgical History wisdom teeth Hospitalization History [facility] [employer] [facility] [employer] Other Evaluation noteNo InformationNortLif[facility] [employer] Other evalumlawi noteNo assessment information available [facility] Work Phone: Evaluation note* Diagnosis Onset Date Resolution Status Degenerative disc disease, lumbar acute Encounter for subsequent [facility] wellness visit (AWV) in Medicare patient acute Fall acute Hyperlipidemia acute Lower extremity edema acute Prediabetes acute Screening mammogram for breast cancer acute Urinary incontinence acute [facility] Work Phone: Evaluation note* Author Beena Packer [facility] Authored December 29, 2023 10:0 4am The above note written by JUVENAL Diamond acting as human recorder, note dictated by Dr.Brett Goel. [facility] Work Phone: Summary Purpose Family History Relationship Condition Age at Onset Recorded Date/T adry father Unknown grandparent Unknown Not Specified Unknown Relationship Condition Age at Onset Recorded Date/T adry father Unknown grandparent Unknown mother Unknown Advance Directives Advance Directive Response Recorded [...] for breast cancer Urinary incontinence Chief Complaint R60.0 E78.5 test for everything 3 month f/u Reason for Visit Cough Sore throat Chronic left shoulder pain Degenerative disc disease, lumbar Lower extremity edema Additional Source Comments INFORMATION SOURCE (unrecogn ized section and content) DATE CREATED AUTHOR 04/11/2020 [employer] [facility] DATE CREATED AUTHOR AUTHOR'S ORGANIZ ATION 10/27/2021 [facility] DATE CREATED AUTHOR AUTHOR'S ORGANIZ ATION 10/17/2022 [facility] DATE CREATED AUTHOR AUTHOR'S ORGANIZ ATION 10/07/2023 [facility] REASON FOR VISIT (unrecogniz ed section and content) refillMEDICARE WELLNESS SUBR efillsreview labs- hyperlipidemia managementRefillship/leg painhip and leg painClinicalRefill3 month Follow up right hp /legRefillsClinicalER FOLLOW UP JUAN C BRONCHITISRefills4 month Follow upRefills Care Teams (unrecognized sec tion and content) Team Status: Active Member Role Status Ruiz Goel DO Primary Care Provider Active Team Status: Inactive Member Role Status Ruiz Goel DO Primary Care Provide r, Attending Provider Active Start: October 06, 2023 End: October 06, 2023 Team Status: Inactive Member Role Status Ruiz Goel DO Primary Care Provide r, Attending Provider Active Start: October 12, 2023 End: October 12, 2023 Team Status: Inactive Member Role Status Ruiz Goel DO Primary Care Provide r, Attending Provider Active Start: December 29, 2023 End: December 29, 2023 Team Status: Active Member Role Status [...] Active Team Status: Inactive Member Role Status Ruiz [...] October 12, 2023 End: October 12, 2023 Team Status: Inactive Member Role Status Ruiz Goel DO Primary Care Provide r, Attending Provider Active Start: December 29, 2023 End: December 29, 2023 Goals (unrecognized section and content) Goals [...] BE BASED ON THE PRIMARY CLINICAL RECORDS. [facility]. provides no warranty or guarantee of the accuracy or completeness of information in this document.
[2024-03-08 08:26] VITALS: BP 156/90; PULSE 66; TEMP 36.3; O2SAT 98
[2024-03-08 09:08] VITALS: BP 174/89; PULSE 57; O2SAT 95
[2024-03-08 09:11] VITALS: BP 172/87; PULSE 62; O2SAT 94
[2024-03-08] MEDS: 0.9 % SODIUM CHLORIDE 10 ML SYRINGE - SALINE FLUSH 2 ML INJ (09:16)
[2024-03-08] MEDS: BUPIVACAINE HCL 0.25% PF 25 MG/10 ML VIAL 2 ML INJ (09:16)
[2024-03-08] MEDS: METHYLPREDNISOLONE ACETATE 80 MG/ML VIAL INJ (09:17)
[2024-03-08] MEDS: LIDOCAINE HCL 2% 400 MG/20 ML MDV INJ (09:17)
[2024-03-08] MEDS: IOHEXOL 240 MG/ML - 10 ML VIAL 24 MG INJ (09:17)
--- NOTE | 2024-03-08 10:05 | P.ON_ITS ---
Date of procedure: 03/08/24 Pre-op diagnosis: Lumbar stenosis with neurogenic claudication Post-op diagnosis: same as pre-op Procedure: Lumbar 5/sacral 1 Epidural Steroid Injection Under fluoroscopic guidance Immediate complications none Solution used for injection: Marcaine 0.25% 2mL, 2cc Normal saline, Depo-Medrol 80mg Omnipaque 3 mL Anesthesia local 2% lidocaine up to 4ml Timeout process compliant After informed consent obtained. Patient brought to the procedure room placed in the prone position. Skin overlying the area was prepped and draped in a sterile fashion using betadine. 25 gauge needle used to raise a skin wheel with local anesthetic over the target area identified under fluoroscopy. A 17 gauge Touhy needle Was inserted over the anesthetized area and directed towards the inter- space under fluoroscopic guidance. Epidural space was identified with loss of resistance technique to air. Needle Tip placement confirmed with injection of contrast solution in AP and Lateral views. Steroid solution was then injected. Anesthesia: Local Surgeon: Nilam Garza Condition: stable
== END 2024-03-08 09:19 | disposition home or self-care (01) ==
LOC: SURGOUT 07:48
PROVIDERS: PCP Family Medicine; Visit Provider Anesthesiology Pain Medicine
DX: M48.062 Spinal stenosis, lumbar region with neurogenic claudication (principal)
CPT/HCPCS: 62323; J0665; J1010; Q9966

== ENCOUNTER 2024-03-31 09:22 | Outpatient (OUT) | payer MEDICARE, SELFPAY ==
--- NOTE | 2024-03-31 10:05 | P.CN_ITS ---
Consult Note: HPI Data of Consult Patient: known to practice within the last 3 years Requesting Physician: Mercy Pak NP Primary Care Provider: PREM GOEL Consult Narrative Reason for consult: f/u Narrative: Mary King is a pleasant 87 year old female who presents for evaluation of chronic right buttock and leg pain. Patient reporting ache intermittently. Pain today 4/10 worse with standing walking activity rolling over, improved with rest. Mild relief from aspirin, moderate relief from tylenol arthritis and diclofenac 75mg BID PRN. finds mild benefit to zonegran 25mg BID. reports previously L4-5 DERICK provided >50% improvement for 3 weeks, did not feel it lasted beyond that. recently underwent L5-S1 DERICK with 60% improvement ongoing. cc:: CC: Mercy Pak NP Review of Systems ROS Status of ROS 10 or more systems reviewed and unremark able except as noted in history and below Musculoskeletal Reports: back pain and extremity pain PFSH PFSH Medical History Low back pain ?M54.50 - Low back pain, unspecified (ICD-10) Hearing deficit ?H91.90 - Unspecified hearing loss, unspecified ear (ICD-10) High cholesterol ?E78.00 - Pure hypercholesterolemia, unspecified (ICD-10) Surgical History H/O breast biopsy ?Z98.890 - Other specified postprocedural states (ICD-10) Family History Brother Family history of CHF (congestive heart failure) Social History Within the past year, how often did you have a drink containing alcohol: monthly or less Within the past year, how many standard drinks containing alcohol did you have on a typical day: 1 or 2 Within the past year, how often did you have six or more drinks on one occasion: less than monthly Total score: 1 Score interpretation: A score less than 3 is consistent with normal alcohol consumption. 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 Known occupational exposures/hazards: No Highest level of school completed/degree received: high school graduate Do you want help with school or training: No Are you now , , , , never or living with a partner: In a typical week, how many times do you talk on the telephone with family, friends, or neighbors: 3 or more times per week How often do you get together with friends or relatives: 3 or more times per week How often do you attend orthodoxy or christianity services: 4 or more times per year Do you belong to any clubs or organizations such as orthodoxy groups unions, [employer] or athletic groups, or school groups: no Total score: 3 Score interpretation: A score of greater than or equal to 2 indicates the lowest level of social isolation. Little interest or pleasure in doing things: several days Feeling down, depressed, or hopeless: several days Feel stressed/tense/nervous/anxious/difficulty sleeping: only a little Due to disability, difficulty making decisions: No Do you think of yourself as: straight/heterosexual Gender Identity: female Meds Home Medications and Allergies Home Medications ?Medication ?Instructions ?Recorded ?Confirmed ?Type ezetimibe 10 mg tablet 10 mg PO QAM 11/06/22 03/08/24 History acetaminophen 650 mg 650 mg PO .QD 11/14/22 03/08/24 History tablet,extended release (Arthritis Pain Relief (acetaminophen) ER) tramadol 50 mg tablet 50 mg PO Q6H PRN pain 5 days #20 08/08/23 03/08/24 Rx tabs triamterene 37.5 1 cap PO DAILY PRN leg swelling 11/13/23 03/08/24 History mg-hydrochlorothiazide 25 mg capsule diclofenac sodium 75 mg 75 mg PO BID #60 tabs 01/11/24 Rx tablet,delayed release zonisamide 25 mg capsule 25 mg PO BID #60 caps 02/17/24 03/08/24 Rx Allergies Allergy/AdvReac Type Severity Reaction Status Date / Time No Known Drug Allergies Allergy Verified 03/08/24 08:33 Exam Constitutional Documenting provider has reviewed patient's vital signs: yes Common normals: no apparent distress, oriented x3, healthy appearing, alert and well nourished General appearance: cooperative Nutritional appearance: overweight HENMT Common normals: normocephalic, hearing grossly normal bilaterally and moist oral mucous membranes Head and scalp: normocephalic Eye Common normals: PERRL Pupil: PERRL Neck & C-Spine Common normals: full ROM General: normal visual inspection Chest Common normals: inspection of chest normal Respiratory Common normals: normal respiratory effort, no retractions and no use of accessor y muscles Back & Pelvis Thoracic spine/upper back: normal to inspection and thoracic ROM normal Lumbar spine/lower back: normal to inspection and lumbar ROM normal Sacroiliac joints: SI joints normal Other: mild tenderness over right gluteus medius, mild pain with deep palpation Extremity Common normals: normal to inspection and full ROM Neuro Common normals: oriented x3, CN's II-XII intact bilaterally, moves all extremities, no focal motor deficits, no sensory deficits noted and deep tendon reflexes 2+ bilaterally Sensorium/orientation: alert Gait (neuro): normal gait Motor exam: strength 5/5 throughout and no movement abnormalities noted Psych Common normals: mental status grossly normal, thought process normal, cooperative, affect normal, speech normal and activity/motor behavior normal Speech: normal speech Thought process: normal thought process Assessment and Plan Assessment and Plan (1) Lumbar stenosis with neurogenic claudication: (2) Lumbar radiculopathy: (3) Piriformis syndrome of right side: (4) Muscle spasm: Plan pt rating l5-s1 DERICK 60% improvement ongoing refer to PT for right piriformis syndrome, encouraged stretching increase zonegran 50mg BID continue diclofenac 75mg BID PRN, risks vs benefits reviewed denies side effects continue PRN tylenol f/u 3 months
== END 2024-03-31 09:23 | disposition home or self-care (01) ==
LOC: PM 09:23
PROVIDERS: PCP Family Medicine; Visit Provider Nurse Practitioner
DX: M48.062 Spinal stenosis, lumbar region with neurogenic claudication (principal); M54.16 Radiculopathy, lumbar region; M62.838 Other muscle spasm
CPT/HCPCS: G0463

== ENCOUNTER 2024-04-01 14:44 | Outpatient (RCR) | payer MEDICARE, SELFPAY | END 2024-04-02 13:46 | disposition home or self-care (01) | LOC: PT 14:44 | PROVIDERS: PCP Family Medicine; Visit Provider Nurse Practitioner | DX: G57.01 Lesion of sciatic nerve, right lower limb (principal) | CPT/HCPCS: 97110; 97161 ==

== ENCOUNTER 2024-07-13 10:58 | Outpatient (OUT) | payer MEDICARE, SELFPAY ==
--- OUTSIDE RECORDS SUMMARY | 2024-07-13 11:01 | XMS_ITS | CCD ---
Author Organization [facility] Care Team Providers Care Ad Trafficker Name Role Phone Prem Goel Unavailable DO Prem Goel Primary Care Provider DO Prem Goel Attending Provider [phone] LAKSHMIPATHY ., NARENDRANATH Admitting Eda vailable [...] RAMOS ., DR KHOA Hernandez Attending Unavailable PARAMJIT [...] Provider Kuns, DO Prem Primary Care Provider [phone] Kuns, DO Prem Attending Provider [phone] Kuns, DO Prem Primary Care Provider Kuns, DO Prem Attending Provider [phone] Kuns, DO Prem Primary Care Provider Kuns, DO Prem Attending Provider Kuns, Prem Attending Unavailable Kuns, Prem Primary Care Unavailable Kuns, Prem Admitting Unavailable Kuns, Prem Primary Care Unavailable Kuns, Prem Admitting Unavailable Kuns, Prem Attending Unavailable Kuns, Prem Primary Care Unavailable Kuns, Prem Admitting Unavailable Kuns, Prem Attending Unavailable Kuns, Prem Attending Unavailable Kuns, Prem [...] sodium 75 mg delayed release oral tablet (7 sources) Nonsteroidal Anti-inflammatory Drug Start: 09-24-2023 take 75 mg by mouth twice daily Diclofenac Sodium Active 75 MG PO Twice daily September 24, 2023 12:00am ezetimibe 10 mg oral tablet (20 sources) Dietary Cholesterol Absorption Inhibitor Start: 04-04-2024 take 1 tablet by mouth once daily Ezetimibe (Zetia) 10 mg tablet Active 10 MG PO Daily April 04, 2024 12:00am Start: 08-03-2023 End: 09-24-2023 take 1 tablet by mouth once daily Ezetimibe Discontinued 1 TAB PO Daily August 03, 2023 1:00am September 24, 2023 9:22am FreeTextSi tablet Orally Once a day; Note: Source Status: Continue; Provider: Raymon Casas Start: 02-28-2021 take 1 tablet by daniella th every twenty-four hours Ezetimibe 10 MG 1 tablet Orally Once a day Feb, Active 24 hr mirabegron 50 mg extended release oral tablet (2 sources) beta3-Adrenergic Agonist Start: 04-04-2024 take 1 tablet by mouth once daily Mirabegron (Myrbetriq) 50 mg tablet extended release 24 hr Active 50 MG PO Daily April 04, 2024 12:00am samples provided (5 sources) Active Pumpkin Seed Extract-Soy Germ (Azo Bladder Control) 300 mg capsule (7 sources) Start: 09-24-2023 Pumpkin Seed Extract-Soy Germ (Azo Bladder Control) 300 mg capsule Active CAP PO September 24, 2023 12:00am rosuvastatin calcium 5 mg oral tablet (2 sources) HMG-CoA Reductase Inhibitor Start: 04-04-2024 take 1 tablet by mouth once daily Rosuvastatin (Crestor) 5 mg tablet Active 5 MG PO Daily April 04, 2024 12:00am Triamcinolone (13 sources) Corticosteroid Start: 11-20-2020 Kenalog -40 mg Nov, 1 cc zonisamide 50 mg oral capsule (2 sources) Anti-epileptic Agent Start: 04-04-2024 take 50 mg by mouth twice daily Zonisamide Active 50 MG PO Twice daily April 04, 2024 12:00am Completed/Discontinued Medications Medication Drug Class(es) Dates Sig [...] as needed Orally every 8 hrs Active [id number] actuat albuterol 0.09 mg/actuat metered dose inhaler (11 sources) beta2-Adrenergic Agonist Start: 09-24-2023 End: 09-24-2023 [...] aspirin 81 mg delayed release oral tablet (10 sources) Platelet Aggregation Inhibitor, Nonsteroidal Anti-inflammatory Drug Start: 03-27-2020 End: 09-24-2023 take 81 mg by mouth once daily Aspirin Discontinued 81 MG PO Daily March 27, 2020 12:00am September 24, 2023 9:22am atorvastatin 10 mg oral tablet (20 sources) HMG-CoA Reductase Inhibitor Start: 10-26-2017 End: 08-03-2023 take 1 tablet by mouth once daily Atorvastatin (Lipitor) 10 mg Tablet Discontinued 10 MG PO Daily March 27, 2020 12:00am August 03, 2023 5:27pm azithromycin 250 mg oral tablet (6 sources) Macrolide Antimicrobial Start: 10-12-2023 End: 12-29-2023 Azithromycin (Zithromax Z-Amado) 250 mg tablet Discontinued 0 PO .COMPLEX October 12, 2023 12:00am December 29, 2023 10:02am For 250 mg dose pack: take 500 mg today (day 1), then 250 mg for 4 days (days 2-5) PO Zithromax Z-Amado 250 MG as directed Orally Active hydroCHLOROthiazide 25 mg / triamterene 37.5 mg oral capsule (7 sources) Potassium-sparing Diuretic, Thiazide Diuretic Start: 09-24-2023 End: 04-04-2024 take 1 capsule by mouth once daily in the morning Triamterene-Hydrochlorothiazid Discontinued 1 CAP PO Every morning 90 September 24, 2023 12:00am April 04, 2024 8:17am methylPREDNISolone 4 mg oral tablet (9 sources) Corticosteroid Start: 10-12-2023 End: 12-29-2023 take [...] (20 sources) Proton Pump Inhibitor Start: 05-20-2017 End: 01-06-2024 take 20 mg by mouth once daily Omeprazole Discontinued 20 MG PO Daily March 27, 2020 12:00am January 06, 2024 8:12am Vit No.[id number] (Classic ) 28 mg iron- 800 mcg tablet (7 sources) Start: 09-24-2023 End: 09-24-2023 Vit No.156-Jtvv-Ubhnl (Classic ) 28 mg iron- 800 mcg tablet Discontinued TAB FEEDTUBE .dly September 24, 2023 12:00am September 24, 2023 9:22am Problems Active Problems Problem Classification Problem Date Documented Date Episodic/Chronic Chronic obstructive pulmonary disease and bronchiectasis (4 sources) Bronchitis; Translations: [Bronchitis, not specified as acute or chronic] Episodic Diabetes mellitus without complication (20 sources) Hyperglycemia, unspecified; Translations: [Hyperglycemia] Onset: 04-30-2021 Resolved: 01-28-2022 Episodic Diseases of white blood cells (17 sources) Lymphocytosis; Translations: [Lymphocytosis (symptomatic)] Onset: 02-28-2021 Resolved: 02-28-2021 Chronic Disorders of lipid metabolism (20 sources) Hyperlipidemia; Translations: [Hyperlipidemia, unspecified] Onset: 02-28-2021 Resolved: 01-28-2022 Chronic E Codes: Fall (10 sources) Fall; Translations: [Unspecified fall, initial encounter] 09-24-2023 Episodic Esophageal disorders (19 sources) Gastroesophageal reflux disease; Translations: [Gastro-esophageal reflux disease without esophagitis] 01-06-2024 Chronic Genitourinary symptoms and ill-defined conditions (13 sources) Urinary incontinence; Translations: [Unspecified urinary incontinence] Onset: 04-04-2024 09-24-2023 Chronic Genitourinary symptoms and ill-defined conditions (7 sources) Increased frequency of urination; Translations: [Frequency of micturition] Onset: 04-04-2024 04-04-2024 Episodic Lymphadenitis (1 source) Localized enlarged lymph nodes [...] Chronic Other ear and sense organ disorders (18 sources) Hearing loss; Translations: [Unspecified hearing loss, unspecified ear] 04-04-2024 Chronic Other ear and sense organ disorders (16 sources) Decreased hearing ; Translations: [Unspecified hearing loss, bilateral] Chronic Other ear and sense organ disorders (2 sources) Unspecified hearing loss, unspecified ear; Translations: [Unspecified hearing loss] 04-04-2024 Chronic Other hereditary and degenerative nervous system conditions (5 sources) Essential tremor; Translations: [Essential tremor] Chronic Other liver diseases (5 sources) Elevated liver enzymes level; Translations: [Abnormal levels of other serum enzymes] Episodic Other lower respiratory disease (5 sources) Cough; Translations: [Cough] 12-29-2023 Episodic Other [...] unspecified chronicity] Episodic Other non-traumatic joint disorders (4 sources) Chronic pain of left upper limb; Translations: [Pain in left shoulder] 12-29-2023 Episodic Other non-traumatic joint disorders (3 sources) Pain in left shoulder; Translations: [Pain in joint, shoulder region] 12-29-2023 Episodic Other nutritional; endocrine; and metabolic disorders (20 sources) Obesity; Translations: [Obesity, unspecified] 04-03-2020 Chronic Other screening for suspected conditions (not mental disorders or infectious disease) (20 sources) Mammography abnormal; Translations: [Other abnormal and inconclusive findings on diagnostic imaging of breast] 09-24-2023 Episodic Other upper respiratory infections (5 sources) Sore throat symptom; Translations: [Acute pharyngitis, unspecified] 12-29-2023 Episodic Pneumonia (except that caused by tuberculosis or sexually transmitted disease) (1 source) Bronchopneumonia, unspecified organism Episodic Residual codes; unclassified (16 sources) Insomnia; Translations: [Insomnia, unspecified] Episodic Residual codes; unclassified (7 sources) Edema of lower extremity; Translations: [Localized edema] 09-24-2023 Episodic Spondylosis; intervertebral disc disorders; other [...] weight loss Onset: 04-30-2021 Resolved: 04-30-2021 Episodic Residual codes; unclassified (5 sources) Localized edema; Translations: [Edema] Onset: 10-06-2023 09-24-2023 Episodic Unclassified (1 source) LOW BACK PAIN, UNSPECIFIED; Translations: [LOW BACK PAIN, UNSPECIFIED] Onset: 10-02-2022 Results Test Name Value Interpretation Reference Range Facility Urine Cultureon 04-04-2024 Bacteria identified Cx Nom (U) ORGANISM: Escherichia coli (O:ESCCOL) [place] Count >100,000 Aerobic BLAYNE Charge (NMIC56) ---- SUSCEPTIBILITY --- ORGANISM: O:ESCCOL ANTIBIOTIC INTERPRETATION BLAYNE Amikacin S <16 Amoxacillin/K Clavulanate S <8 Ampicillin S <8 Ampicillin/Sulbactam S <4 Aztreonam S <4 Cefazolin S <2 Cefepime S <2 Ceftazidime S <1 Ceftazidime/Avibactam S <4 Ceftolozane/Tazobacta m S <2 Ceftriaxone S <1 Cefuroxime S <4 Ciprofloxacin S <0.25 Ertapenem S <0.5 Gentamicin S <2 Levofloxacin S <0.5 Meropenem S <1 Meropenem/Vaborbactam S <2 Nitrofurantoin S <32 Piperacillin/Tazobact am S <8 Tetracycline S <4 Tigecycline S <2 Tobramycin S <2 Trimethoprim/Sulfamet hoxazole S <0.5 S = SUSCEPTIBLE I = INTERMEDIATE R = RESISTANT BLANK = DATA NOT AVAILABLE, OR DRUG NOT ADVISABLE OR TESTED R* = RESISTANCE DUE TO EXTENDED SPECTRUM BETA-LACTAMASES ESBL = EXTENDED SPECTRUM BETA-LACTAMASE TFG = THYMIDINE-DEPENDENT STRAIN WANG = BETA-LACTAMASE POSITIVE IB = INDUCIBLE BETA-LACTAMASE. APPEARS IN PLACE OF 'S' WITH SPECIES KNOWN TO POSSESS INDUCIBLE BETA-LACTAMASES. POTENTIALLY THEY MAY BECOME RESISTANT TO ALL B-LACTAM DRUGS. PERFORMED BY: [place] [address] PATHOLOGIST AVP BEV TALBERT M.D. Normal [facility] Comment on above: Performed By: #### C UU #### [place] [address] [place] Alanine aminotransferase [En zymatic activity/volume] in Serum or PlasmaOrdered By: Prem Goel on 03-30-2024 ALT [Catalytic activity/Vol] 14 U/L Normal 7-52 [facility] Comment on above: Performed By: #### L IPID, TSH3, CMP, CBC #### [place] [address] [place] Albumin [Mass/volume] in Ser um or Plasma by Bromocresol green (BCG) dye binding methoOrdered By: Prem Goel on 03-30-2024 Albumin BCG dye [Mass/Vol] 3.8 g/dL 3.5-5.7 [facility] Alkaline phosphatase [Enzyma tic activity/volume] in Serum or PlasmaOrdered By: Prem Goel on 03-30-2024 ALP [Catalytic activity/Vol] 87 U/L Normal 34-104 [facility] Comment on above: Performed By: #### L IPID, TSH3, CMP, CBC #### [place] [address] [place] Aspartate aminotransferase [ Enzymatic activity/volume] in Serum or PlasmaOrdered By: Prem Goel on 03-30-2024 AST [Catalytic activity/Vol] 15 U/L Normal 13-39 [facility] Comment on above: Performed By: #### L IPID, TSH3, CMP, CBC #### [address] Automated basophil %Ordered By: Prem Goel on 03-30-2024 Basophils/100 WBC (Bld) 0.8 % Normal . [facility] Comment on above: Performed By: #### L IPID, TSH3, CMP, CBC #### [address] Automated basophil countOrde red By: Prem Goel on 03-30-2024 Basophils (Bld) [#/Vol] 0.0 10*3/uL Normal 0.0-0.2 [facility] Comment on above: Result Comment: PERF ORMED BY: [place] [address] PATHOLOGIST AVP BEV TALBERT M.D. Performed By: #### L IPID, TSH3, CMP, CBC #### [address] Automated blood monocyte cou ntOrdered By: Prem Goel on 03-30-2024 Monocytes (Bld) [#/Vol] 0.5 10*3/uL Normal 0.0-0.8 [facility] Comment on above: Performed By: #### L IPID, TSH3, CMP, CBC #### [facility] [address] [place] [address] Automated eosinophil %Ordere d By: Prem Goel on 03-30-2024 Eosinophils/100 WBC (Bld) 2.5 % Normal . [facility] Comment on above: Performed By: #### L IPID, TSH3, CMP, CBC #### [address] Automated eosinophil countOr dered By: Prem Goel on 03-30-2024 Eosinophils (Bld) [#/Vol] 0.1 10*3/uL Normal 0.0-0.45 [facility] Comment on above: Performed By: #### L IPID, TSH3, CMP, CBC #### [address] Automated monocyte %Ordered By: Prem Goel on 03-30-2024 Monocytes/100 WBC (Bld) 9.1 % Normal . [facility] Comment on above: Performed By: #### L IPID, TSH3, CMP, CBC #### [address] Automated neutrophil %Ordere d By: Prem Goel on 03-30-2024 Neutrophils/100 WBC (Bld) 52.9 % Normal . [facility] Comment on above: Performed By: #### L IPID, TSH3, CMP, CBC #### [address] Bilirubin.total [Mass/volume ] in Serum or PlasmaOrdered By: Prem Goel on 03-30-2024 Bilirubin [Mass/Vol] 0.4 mg/dL Normal 0.3-1.0 [facility] Comment on above: Performed By: #### L IPID, TSH3, CMP, CBC #### [address] Calcium [Mass/volume] in Ser um or PlasmaOrdered By: Prem Goel on 03-30-2024 Calcium [Mass/Vol] 9.2 mg/dL Normal 8.6-10.3 [facility] Comment on above: Performed By: #### L IPID, TSH3, CMP, CBC #### [place] [address] [place] Carbon dioxide, total [Moles /volume] in Serum or PlasmaOrdered By: Prem Goel on 03-30-2024 CO2 [Moles/Vol] 28.9 mmol/L Normal 21.0-31.0 [facility] Comment on above: Performed By: #### L IPID, TSH3, CMP, CBC #### [facility] [address] [place] [address] [place] Chloride [Moles/volume] in S dede or PlasmaOrdered By: Prem Goel on 03-30-2024 Chloride [Moles/Vol] 106 mmol/L Normal 98-107 [facility] Comment on above: Performed By: #### L IPID, TSH3, CMP, CBC #### [facility] [address] [place] [address] [place] Cholesterol [Mass/volume] in Serum or PlasmaOrdered By: Prem Goel on 03-30-2024 Cholesterol [Mass/Vol] 319 mg/dL High 140-200 [facility] Comment on above: Chol less than 200 m g/dl low riskChol 201-239 mg/dl borderline riskChol 240 mg/dl and greater high risk Result Comment: Chol less than 200 mg/dl low risk Chol 201-239 mg/dl borderline risk Chol 240 mg/dl and greater high risk Performed By: #### L IPID, TSH3, CMP, CBC #### [facility] [address] Cholesterol in LDL Calc [Mas s/Vol]Ordered By: Prem Goel on 03-30-2024 Cholesterol in LDL [Mass/Vol] 230 mg/dL High 0-100 [facility] Comment on above: LDL ATP III CLASSIFI CATIONLDL less than 100 mg/dL OptimalLDL 100-129 mg/dL Near or above optimalLDL 130-159 mg/dL Borderline highLDL 160-189 mg/dL HighLDL greater than 189 mg/dL Very high Cholesterol in VLDL Calc [Ma ss/Vol]Ordered By: Prem Goel on 03-30-2024 Cholesterol in VLDL [Mass/Vol] 18 mg/dL [facility] Complete Blood Count Auto Di ffon 03-30-2024 Mean Corpuscular HGB Conc 33.4 g/dL Normal 32.0-35.0 [facility] Comment on above: Performed By: #### L IPID, TSH3, CMP, CBC #### [facility] [address] [place] [address] [place] NRBC% 0.1 /100{WBC} Normal 0-0.5 [facility] Comment on above: Performed By: #### L IPID, TSH3, CMP, CBC #### [facility] [address] Comprehensive Metabolic Pane [place] 03-30-2024 Albumin [Mass/Vol] 3.8 g/dL Normal 3.5-5.7 [facility] Comment on above: Performed By: #### L IPID, TSH3, CMP, CBC #### [facility] [address] GFR/1.73 sq M.predicted MDRD (S/P/Bld) [Vol rate/Area] mL/min/{1.73_m2} Normal [facility] Comment on above: Performed By: #### L IPID, TSH3, CMP, CBC #### [address] Creatinine [Mass/volume] in Serum or PlasmaOrdered By: Prem Goel on 03-30-2024 Creatinine [Mass/Vol] 0.76 mg/dL Normal 0.60-1.20 [facility] Comment on above: Performed By: #### L IPID, TSH3, CMP, CBC #### [address] Erythrocyte distribution wid th [Ratio] by Automated countOrdered By: Prem Goel on 03-30-2024 Erythrocyte distribution width (RBC) [Ratio] 12.7 % Normal 11.9-15.3 [facility] Comment on above: Performed By: #### L IPID, TSH3, CMP, CBC #### [facility] [address] [place] [address] Erythrocytes [#/volume] in B lood by Automated countOrdered By: Prem Goel on 03-30-2024 RBC (Bld) [#/Vol] 4.43 10*6/uL Normal 3.60-5.00 [facility] Comment on above: Performed By: #### L IPID, TSH3, CMP, CBC #### [facility] [address] [place] [address] Glucose [Mass/volume] in Ser um or PlasmaOrdered By: Prem Goel on 03-30-2024 Glucose [Mass/Vol] 89 mg/dL Normal 70-100 [facility] Comment on above: ADA recommended refe rence rangeRandom Glucose Reference Range is dependent on time and content of last meal. Glucose of more than 200 mg/dL in a nonstressed, ambulatory subject supports the diagnosis of Diabetes Mellitus. Result Comment: [place] om Glucose Reference Range is dependent on time and content of last meal. Glucose of more than 200 mg/dL in a nonstressed, ambulatory subject supports the diagnosis of Diabetes Mellitus. ADA recommended reference range Performed By: #### L IPID, TSH3, CMP, CBC #### [address] Hematocrit [Volume Fraction] of Blood by Automated countOrdered By: Prem Goel on 03-30-2024 Hematocrit (Bld) [Volume fraction] 41.5 % Normal 34.0-46.4 [facility] Comment on above: Performed By: #### L IPID, TSH3, CMP, CBC #### [address] Hemoglobin [Mass/volume] in BloodOrdered By: Prem Goel on 03-30-2024 Hemoglobin (Bld) [Mass/Vol] 13.9 g/dL Normal 11.8-15.4 [facility] Comment on above: Performed By: #### L IPID, TSH3, CMP, CBC #### [address] Leukocytes [#/volume] correc guillermina for nucleated erythrocytes in Blood by Automated counOrdered By: Prem Goel on 03-30-2024 WBC corrected for nucl RBC Auto (Bld) [#/Vol] 5.4 10*3/uL 3.8-11.6 [facility] Leukocytes [#/volume] in Blo od by Automated countOrdered By: Prem Goel on 03-30-2024 WBC (Bld) [#/Vol] 5.4 10*3/uL Normal 3.8-11.6 [facility] Comment on above: Performed By: #### L IPID, TSH3, CMP, CBC #### [address] Lipid Panelon 03-30-2024 LDL Cholesterol,Calculated 230 mg/dL High 0-100 The Counts include 234 beds at the [facility] Comment on above: Result Comment: LDL ATP III CLASSIFICATION LDL less than 100 mg/dL Optimal LDL 100-129 mg/dL Near or above optimal LDL 130-159 mg/dL Borderline high LDL 160-189 mg/dL High LDL greater than 189 mg/dL Very high Performed By: #### L IPID, TSH3, CMP, CBC #### [address] Triglyceride w/Reflex 94 mg/dL Normal 0-149 [facility] Comment on above: Result Comment: TRIG ATP III CLASSIFICATION TRIG less than 150 mg/dL Normal TRIG 150-199 mg/dL Borderline high TRIG 200-500 mg/dL High TRIG greater than 500 mg/dL Very high Standard traceable to the Center for Disease Conrtrol and Prevention (CDC) test method. Performed By: #### L IPID, TSH3, CMP, CBC #### [address] VLDL CHOLESTEROL 18 mg/dL Normal [facility] Comment on above: Performed By: #### L IPID, TSH3, CMP, CBC #### [address] Lymphocytes [#/volume] in Bl ood by Automated countOrdered By: Prem Goel on 03-30-2024 Lymphocytes (Bld) [#/Vol] 1.9 10*3/uL Normal 1.00-4.8 [facility] Comment on above: Performed By: #### L IPID, TSH3, CMP, CBC #### [place] [address] [place] Lymphocytes/100 leukocytes i n Blood by Automated countOrdered By: Prem Goel on 03-30-2024 Lymphocytes/100 WBC (Bld) 34.7 % Normal . [facility] Comment on above: Performed By: #### L IPID, TSH3, CMP, CBC #### [place] [address] [place] MCH [Entitic mass] by Automa guillermina countOrdered By: Prem Goel on 03-30-2024 MCH (RBC) [Entitic mass] 31.3 pg Normal 24.7-34.3 [facility] Comment on above: Performed By: #### L IPID, TSH3, CMP, CBC #### [facility] [address] [place] [address] MCHC Auto (RBC) [Mass/Vol]Or dered By: Prem Goel on 03-30-2024 MCHC (RBC) [Mass/Vol] 33.4 g/dL 32.0-35.0 [facility] MCV [Entitic volume] by Auto mated countOrdered By: Prem Goel on 03-30-2024 MCV (RBC) [Entitic vol] 93.7 fL Normal 80-100 [facility] Comment on above: Performed By: #### L IPID, TSH3, CMP, CBC #### [facility] [address] [place] [address] Neutrophils [#/volume] in Bl ood by Automated countOrdered By: Prem Goel on 03-30-2024 Neutrophils (Bld) [#/Vol] 2.9 10*3/uL Normal 1.8-7.7 [facility] Comment on above: Performed By: #### L IPID, TSH3, CMP, CBC #### [facility] [address] [place] [address] No Panel InformationOrdered By: Prem Goel on 03-30-2024 Estimated GFR (CKD-EPI) > 60.0 mL/Min [facility] Creatinine Clearance (Chem N/A [facility] Nucleated erythrocytes [Pres ence] in Blood by Automated countOrdered By: Prem Goel on 03-30-2024 Nucleated RBC Auto Ql (Bld) 0.1 /100{WBC} 0-0.5 [facility] Platelet mean volume [Entiti c volume] in Blood by Automated countOrdered By: Prem Goel on 03-30-2024 Platelet mean volume (Bld) [Entitic vol] 10.4 fL Normal 6.3-10.7 [facility] Comment on above: Performed By: #### L IPID, TSH3, CMP, CBC #### [facility] [address] Platelets [#/volume] in Bloo d by Automated countOrdered By: Prem Goel on 03-30-2024 Platelets (Bld) [#/Vol] 199 10*3/uL Normal 150-450 [facility] Comment on above: Performed By: #### L IPID, TSH3, CMP, CBC #### [address] Potassium [Moles/volume] in Serum or PlasmaOrdered By: Prem Goel on 03-30-2024 Potassium [Moles/Vol] 4.1 mmol/L Normal 3.5-5.1 [facility] Comment on above: Performed By: #### L IPID, TSH3, CMP, CBC #### [address] Protein [Mass/volume] in Ser um or PlasmaOrdered By: Prem Goel on 03-30-2024 Protein [Mass/Vol] 6.1 g/dL Low 6.4-8.9 [facility] Comment on above: Performed By: #### L IPID, TSH3, CMP, CBC #### [address] Serum globulin measurement b y calculation (mass/volume)Ordered By: Prem Goel on 03-30-2024 Globulin (S) [Mass/Vol] 2.3 g/dL Normal [facility] Comment on above: Performed By: #### L IPID, TSH3, CMP, CBC #### [address] Serum or plasma albumin/glob ulin mass ratioOrdered By: Prem Goel on 03-30-2024 Albumin/Globulin [Mass ratio] 1.7 {ratio} Normal [facility] Comment on above: Performed By: #### L IPID, TSH3, CMP, CBC #### [address] Serum or plasma anion gap de terminationOrdered By: Prem Goel on 03-30-2024 Anion gap [Moles/Vol] 11.2 mmol/L Normal 6.0-15.0 [facility] Comment on above: Performed By: #### L IPID, TSH3, CMP, CBC #### [facility] [address] Serum or plasma high density lipoprotein (HDL) cholesterol measurementOrdered By: Prem Goel on 03-30-2024 Cholesterol in HDL [Mass/Vol] 70 mg/dL Normal [facility] Comment on above: HDL CHOL ATP-III CLA SSIFICATION Cardiovascular RiskHDL > or equal to 60 mg/dL LOWHDL < 40 mg/dL HIGH Result Comment: HDL CHOL ATP-III CLASSIFICATION Cardiovascular Risk HDL > or equal to 60 mg/dL LOW HDL < 40 mg/dL HIGH Performed By: #### L IPID, TSH3, CMP, CBC #### [facility] [address] [place] [address] Serum or plasma total choles terol/high density lipoprotein (HDL) cholesterol mass ratOrdered By: Prem Goel on 03-30-2024 Cholesterol.total/Araceli sterol in HDL [Mass ratio] 4.6 {ratio} Normal <5.0 [facility] Comment on above: Performed By: #### L IPID, TSH3, CMP, CBC #### [address] Sodium [Moles/volume] in Ser um or PlasmaOrdered By: Prem Goel on 03-30-2024 Sodium [Moles/Vol] 142 mmol/L Normal 136-145 [facility] Comment on above: Performed By: #### L IPID, TSH3, CMP, CBC #### [facility] [address] Thyrotropin [Units/volume] i n Serum or PlasmaOrdered By: Prem Gole on 03-30-2024 TSH Qn 2.68 m[IU]/L Normal 0.45-5.33 [facility] Comment on above: Result Comment: PERF ORMED BY: [place] [address] PATHOLOGIST AVP BEV TALBERT M.D. Performed By: #### C MP, CBC, TSH3, LIPID #### [facility] [address] [place] [address] Triglyceride [Mass/volume] i n Serum or PlasmaOrdered By: Prem Goel on 03-30-2024 Triglyceride [Mass/Vol] 94 mg/dL 0-149 [facility] Comment on above: TRIG ATP III CLASSIF ICATIONTRIG less than 150 mg/dL NormalTRIG 150-199 mg/dL Borderline highTRIG 200-500 mg/dL High TRIG greater than 500 mg/dL Very highStandard traceable to the Center for Disease Conrtrol and Prevention (CDC) test method. Urea nitrogen [Mass/volume] in Serum or PlasmaOrdered By: Prem Goel on 03-30-2024 Urea nitrogen [Mass/Vol] 21 mg/dL Normal 7-25 [facility] Comment on above: Performed By: #### L IPID, TSH3, CMP, CBC #### [address] Influenza virus B Ag [Presen ce] in Upper respiratory specimen by Rapid immunoassayon 10-12-2023 FLUBV Ag IA.rapid Ql (Nph) Negative [facility] No Panel Informationon 10-11 Influenza Type A (Rapid) Negative [facility] POC SARS CoV-2 Antigen Negative [facility] No Panel InformationOrdered By: Prem Goel on 10-12-2023 Quick Strep (POC) [facility] RSV (POC) [facility] ECH echo transthoracicon ECH echo transthoracic [facility] Main [place] [address] [place] [address] Echocardiogram Signed Patient: Mary Wilkerson MR#: [id number] : 1935 Acct:[id number] Age/Sex: 87 / F ADM Date: 10/06/23 Loc: Room: Type: [facility] Attending Dr: Prem Goel DO Ordering Provider: Prem Goel DO Date of Service: 10/06/23 [facility] echo transthoracic: R60.0 - Localized edema Copies to: DO Bruce Solares MD, [facility] BSA: 1.7 m2 BP: 147/85 mmHg HR: [...] 10/06/23 0852 Signed By: Bruce Caballero MD, [facility] 10/06/23 1757 Normal [facility] A1C with Estimated Average G bassam 09-18-2023 Glucose [Mass/Vol] 117 mg/dL Normal [facility] Comment on above: Order Comment: Reaso n for Exam Hyperglycemia Result Comment: PERF ORMED BY: [place] [address] PATHOLOGIST AVP BEV TALBERT M.D. Performed By: #### A 1C [facility] eA #### [address] Alanine aminotransferase [En zymatic activity/volume] in Serum or PlasmaOrdered By: Prem Goel on 09-18-2023 ALT [Catalytic activity/Vol] 15 U/L Normal 7-52 [facility] Comment on above: Order Comment: Reaso n for Exam Hyperlipidemia Performed By: #### C MP, CBC, TSH3, LIPID #### [facility] [address] Albumin [Mass/volume] in Ser um or Plasma by Bromocresol green (BCG) dye binding methoOrdered By: Prem Goel on 09-18-2023 Albumin BCG dye [Mass/Vol] 4.0 g/dL 3.5-5.7 [facility] Alkaline phosphatase [Enzyma tic activity/volume] in Serum or PlasmaOrdered By: Prem Goel on 09-18-2023 ALP [Catalytic activity/Vol] 87 U/L Normal 34-104 [facility] Comment on above: Order Comment: Reaso n for Exam Hyperlipidemia Performed By: #### C MP, CBC, TSH3, LIPID #### [address] Aspartate aminotransferase [ Enzymatic activity/volume] in Serum or PlasmaOrdered By: Prem Goel on 09-18-2023 AST [Catalytic activity/Vol] 16 U/L Normal 13-39 [facility] Comment on above: Order Comment: Reaso n for Exam Hyperlipidemia Performed By: #### C MP, CBC, TSH3, LIPID #### [address] Automated basophil %Ordered By: Prem Goel on 09-18-2023 Basophils/100 WBC (Bld) 0.5 % Normal . [facility] Comment on above: Performed By: #### C MP, CBC, TSH3, LIPID #### [facility] [address] [place] [address] Automated basophil countOrde red By: Prem Goel on 09-18-2023 Basophils (Bld) [#/Vol] 0.0 10*3/uL Normal 0.0-0.2 [facility] Comment on above: Result Comment: PERF ORMED BY: [place] [address] PATHOLOGIST AVP BEV TALBERT M.D. Performed By: #### C MP, CBC, TSH3, LIPID #### [address] Automated blood monocyte cou ntOrdered By: Prem Goel on 09-18-2023 Monocytes (Bld) [#/Vol] 0.4 10*3/uL Normal 0.0-0.8 [facility] Comment on above: Performed By: #### C MP, CBC, TSH3, LIPID #### [address] Automated eosinophil %Ordere d By: Prem Goel on 09-18-2023 Eosinophils/100 WBC (Bld) 2.2 % Normal . [facility] Comment on above: Performed By: #### C MP, CBC, TSH3, LIPID #### [address] Automated eosinophil countOr dered By: Prem Goel on 09-18-2023 Eosinophils (Bld) [#/Vol] 0.1 10*3/uL Normal 0.0-0.45 [facility] Comment on above: Performed By: #### C MP, CBC, TSH3, LIPID #### [address] Automated monocyte %Ordered By: Prem Goel on 09-18-2023 Monocytes/100 WBC (Bld) 8.0 % Normal . [facility] Comment on above: Performed By: #### C MP, CBC, TSH3, LIPID #### [address] Automated neutrophil %Ordere d By: Prem Goel on 09-18-2023 Neutrophils/100 WBC (Bld) 36.1 % Normal . [facility] Comment on above: Performed By: #### C MP, CBC, TSH3, LIPID #### [address] Bilirubin.total [Mass/volume ] in Serum or PlasmaOrdered By: Prem Goel on 09-18-2023 Bilirubin [Mass/Vol] 0.6 mg/dL Normal 0.3-1.0 [facility] Comment on above: Order Comment: Reaso n for Exam Hyperlipidemia Performed By: #### C MP, CBC, TSH3, LIPID #### [facility] [address] [place] [id number] [place] Calcium [Mass/volume] in Ser um or PlasmaOrdered By: Prem Goel on 09-18-2023 Calcium [Mass/Vol] 9.5 mg/dL Normal 8.6-10.3 [facility] Comment on above: Order Comment: Reaso n for Exam Hyperlipidemia Performed By: #### C MP, CBC, TSH3, LIPID #### [facility] [address] [place] [address] [place] Carbon dioxide, total [Moles /volume] in Serum or PlasmaOrdered By: Prem Goel on 09-18-2023 CO2 [Moles/Vol] 28.9 mmol/L Normal 21.0-31.0 [facility] Comment on above: Order Comment: Reaso n for Exam Hyperlipidemia Performed By: #### C MP, CBC, TSH3, LIPID #### [facility] [address] [place] [address] [place] Chloride [Moles/volume] in S dede or PlasmaOrdered By: Prem Goel on 09-18-2023 Chloride [Moles/Vol] 104 mmol/L Normal 98-107 [facility] Comment on above: Order Comment: Reaso n for Exam Hyperlipidemia Performed By: #### C MP, CBC, TSH3, LIPID #### [facility] [address] [place] [id number] [place] Cholesterol [Mass/volume] in Serum or PlasmaOrdered By: Prem Goel on 09-18-2023 Cholesterol [Mass/Vol] 289 mg/dL High 140-200 [facility] Comment on above: Chol less than 200 m g/dl low riskChol 201-239 mg/dl borderline riskChol 240 mg/dl and greater high risk Order Comment: Reaso n for Exam Hyperlipidemia Result Comment: Chol less than 200 mg/dl low risk Chol 201-239 mg/dl borderline risk Chol 240 mg/dl and greater high risk Performed By: #### C MP, CBC, TSH3, LIPID #### [facility] [address] [place] [id number] [place] Cholesterol in LDL Calc [Mas s/Vol]Ordered By: Prem Goel on 09-18-2023 Cholesterol in LDL [Mass/Vol] 197 mg/dL 0-100 [facility] Comment on above: LDL ATP III CLASSIFI CATIONLDL less than 100 mg/dL OptimalLDL 100-129 mg/dL Near or above optimalLDL 130-159 mg/dL Borderline highLDL 160-189 mg/dL HighLDL greater than 189 mg/dL Very high Cholesterol in VLDL Calc [Ma ss/Vol]Ordered By: Prem Goel on 09-18-2023 Cholesterol in VLDL [Mass/Vol] 23 mg/dL [facility] Complete Blood Count Auto Di ffon 09-18-2023 Mean Corpuscular HGB Conc 31.9 g/dL Low 32.0-35.0 [facility] Comment on above: Performed By: #### C MP, CBC, TSH3, LIPID #### [facility] [address] [place] [address] NRBC% 0.2 /100{WBC} Normal 0-0.5 [facility] Comment on above: Performed By: #### C MP, CBC, TSH3, LIPID #### [facility] [address] Comprehensive Metabolic Pane [place] 09-18-2023 Albumin [Mass/Vol] 4.0 g/dL Normal 3.5-5.7 [facility] Comment on above: Order Comment: Reaso n for Exam Hyperlipidemia Performed By: #### C MP, CBC, TSH3, LIPID #### [facility] [address] [place] [address] [place] GFR/1.73 sq M.predicted MDRD (S/P/Bld) [Vol rate/Area] mL/min/{1.73_m2} Normal [facility] Comment on above: Order Comment: Reaso n for Exam Hyperlipidemia Performed By: #### C MP, CBC, TSH3, LIPID #### [facility] [address] [place] [address] Creatinine [Mass/volume] in Serum or PlasmaOrdered By: Prem Goel on 09-18-2023 Creatinine [Mass/Vol] 0.79 mg/dL Normal 0.60-1.20 [facility] Comment on above: Order Comment: Jennyo n for Exam Hyperlipidemia Performed By: #### C MP, CBC, TSH3, LIPID #### [facility] [address] Erythrocyte distribution wid th [Ratio] by Automated countOrdered By: Prem Goel on 09-18-2023 Erythrocyte distribution width (RBC) [Ratio] 13.9 % Normal 11.9-15.3 [facility] Comment on above: Performed By: #### C MP, CBC, TSH3, LIPID #### [facility] [address] Erythrocytes [#/volume] in B lood by Automated countOrdered By: Prem Goel on 09-18-2023 RBC (Bld) [#/Vol] 4.87 10*6/uL Normal 3.60-5.00 [facility] Comment on above: Performed By: #### C MP, CBC, TSH3, LIPID #### [facility] [address] Glucose [Mass/volume] in Ser um or PlasmaOrdered By: Prem Goel on 09-18-2023 Glucose [Mass/Vol] 90 mg/dL Normal 70-100 [facility] Comment on above: ADA recommended refe rence rangeRandom Glucose Reference Range is dependent on time and content of last meal. Glucose of more than 200 mg/dL in a nonstressed, ambulatory subject supports the diagnosis of Diabetes Mellitus. Order Comment: Reaso n for Exam Hyperlipidemia Result Comment: [place] om Glucose Reference Range is dependent on time and content of last meal. Glucose of more than 200 mg/dL in a nonstressed, ambulatory subject supports the diagnosis of Diabetes Mellitus. ADA recommended reference range Performed By: #### C MP, CBC, TSH3, LIPID #### [facility] [address] Glucose mean value [Mass/vol ume] in Blood Estimated from glycated hemoglobinOrdered By: Prem Goel on 09-18-2023 Average glucose Estimated from glycated hemoglobin (Bld) [Mass/Vol] 117 mg/dL [facility] Hematocrit [Volume Fraction] of Blood by Automated countOrdered By: Prem Goel on 09-18-2023 Hematocrit (Bld) [Volume fraction] 44.9 % Normal 34.0-46.4 [facility] Comment on above: Performed By: #### C MP, CBC, TSH3, LIPID #### [address] Hemoglobin A1c percentageOrd ered By: Prem Goel on 09-18-2023 HbA1c (Bld) [Mass fraction] 5.7 % High 4.3-5.6 [facility] Comment on above: Increased risk for d iabetes: 5.7 - 6.4diabetes: >6.4glycemic control for adults with diabetes: <7.0 Order Comment: Reaso n for Exam Hyperglycemia Result Comment: Incr eased risk for diabetes: 5.7 - 6.4 diabetes: >6.4 glycemic control for adults with diabetes: <7.0 Performed By: #### A 1C [facility] eA #### [address] Hemoglobin [Mass/volume] in BloodOrdered By: Prem Goel on 09-18-2023 Hemoglobin (Bld) [Mass/Vol] 14.3 g/dL Normal 11.8-15.4 [facility] Comment on above: Performed By: #### C MP, CBC, TSH3, LIPID #### [address] Leukocytes [#/volume] correc guillermina for nucleated erythrocytes in Blood by Automated counOrdered By: Prem Goel on 09-18-2023 WBC corrected for nucl RBC Auto (Bld) [#/Vol] 5.4 10*3/uL 3.8-11.6 [facility] Leukocytes [#/volume] in Blo od by Automated countOrdered By: Prem Goel on 09-18-2023 WBC (Bld) [#/Vol] 5.4 10*3/uL Normal 3.8-11.6 [facility] Comment on above: Performed By: #### C MP, CBC, TSH3, LIPID #### [address] Lipid Panelon 09-18-2023 LDL Cholesterol,Calculated 197 mg/dL High 0-100 The Counts include 234 beds at the [facility] Comment on above: Order Comment: Reaso n for Exam Hyperlipidemia Result Comment: LDL ATP III CLASSIFICATION LDL less than 100 mg/dL Optimal LDL 100-129 mg/dL Near or above optimal LDL 130-159 mg/dL Borderline high LDL 160-189 mg/dL High LDL greater than 189 mg/dL Very high Performed By: #### C MP, CBC, TSH3, LIPID #### [facility] [address] Triglyceride w/Reflex 116 mg/dL Normal 0-149 [facility] Comment on above: Order Comment: Reaso n for Exam Hyperlipidemia Result Comment: TRIG ATP III CLASSIFICATION TRIG less than 150 mg/dL Normal TRIG 150-199 mg/dL Borderline high TRIG 200-500 mg/dL High TRIG greater than 500 mg/dL Very high Standard traceable to the Center for Disease Conrtrol and Prevention (CDC) test method. Performed By: #### C MP, CBC, TSH3, LIPID #### [address] VLDL CHOLESTEROL 23 mg/dL Normal [facility] Comment on above: Order Comment: Reaso n for Exam Hyperlipidemia Performed By: #### C MP, CBC, TSH3, LIPID #### [place] [address] [place] Lymphocytes [#/volume] in Bl ood by Automated countOrdered By: Prem Goel on 09-18-2023 Lymphocytes (Bld) [#/Vol] 2.9 10*3/uL Normal 1.00-4.8 [facility] Comment on above: Performed By: #### C MP, CBC, TSH3, LIPID #### [facility] [address] [place] [address] [place] Lymphocytes/100 leukocytes i n Blood by Automated countOrdered By: Prem Goel on 09-18-2023 Lymphocytes/100 WBC (Bld) 53.2 % Normal . [facility] Comment on above: Performed By: #### C MP, CBC, TSH3, LIPID #### [facility] [address] [place] [address] MCH [Entitic mass] by Automa guillermina countOrdered By: Prem Goel on 09-18-2023 MCH (RBC) [Entitic mass] 29.4 pg Normal 24.7-34.3 [facility] Comment on above: Performed By: #### C MP, CBC, TSH3, LIPID #### [facility] [address] [place] [address] MCHC Auto (RBC) [Mass/Vol]Or dered By: Prem Goel on 09-18-2023 MCHC (RBC) [Mass/Vol] 31.9 g/dL 32.0-35.0 [facility] MCV [Entitic volume] by Auto mated countOrdered By: Prem Goel on 09-18-2023 MCV (RBC) [Entitic vol] 92.3 fL Normal 80-100 [facility] Comment on above: Performed By: #### C MP, CBC, TSH3, LIPID #### [facility] [address] [place] [address] Neutrophils [#/volume] in Bl ood by Automated countOrdered By: Prem Goel on 09-18-2023 Neutrophils (Bld) [#/Vol] 1.9 10*3/uL Normal 1.8-7.7 [facility] Comment on above: Performed By: #### C MP, CBC, TSH3, LIPID #### [facility] [address] [place] [address] No Panel InformationOrdered By: Prem Goel on 09-18-2023 Estimated GFR (CKD-EPI) > 60.0 mL/Min [facility] Creatinine Clearance (Chem N/A [facility] Nucleated erythrocytes [Pres ence] in Blood by Automated countOrdered By: Prem Goel on 09-18-2023 Nucleated RBC Auto Ql (Bld) 0.2 /100{WBC} 0-0.5 [facility] Platelet mean volume [Entiti c volume] in Blood by Automated countOrdered By: Prem Goel on 09-18-2023 Platelet mean volume (Bld) [Entitic vol] 10.4 fL Normal 6.3-10.7 [facility] Comment on above: Performed By: #### C MP, CBC, TSH3, LIPID #### [facility] [address] [place] [address] [place] Platelets [#/volume] in Bloo d by Automated countOrdered By: Prem Goel on 09-18-2023 Platelets (Bld) [#/Vol] 230 10*3/uL Normal 150-450 [facility] Comment on above: Performed By: #### C MP, CBC, TSH3, LIPID #### [facility] [address] Potassium [Moles/volume] in Serum or PlasmaOrdered By: Prem Goel on 09-18-2023 Potassium [Moles/Vol] 4.2 mmol/L Normal 3.5-5.1 [facility] Comment on above: Order Comment: Reaso n for Exam Hyperlipidemia Performed By: #### C MP, CBC, TSH3, LIPID #### [facility] [address] [place] [address] Protein [Mass/volume] in Ser um or PlasmaOrdered By: Prem Goel on 09-18-2023 Protein [Mass/Vol] 6.4 g/dL Normal 6.4-8.9 [facility] Comment on above: Order Comment: Reaso n for Exam Hyperlipidemia Performed By: #### C MP, CBC, TSH3, LIPID #### [facility] [address] [place] [address] Serum globulin measurement b y calculation (mass/volume)Ordered By: Prem Goel on 09-18-2023 Globulin (S) [Mass/Vol] 2.4 g/dL Normal [facility] Comment on above: Order Comment: Reaso n for Exam Hyperlipidemia Performed By: #### C MP, CBC, TSH3, LIPID #### [facility] [address] [place] [address] Serum or plasma albumin/glob ulin mass ratioOrdered By: Prem Goel on 09-18-2023 Albumin/Globulin [Mass ratio] 1.7 {ratio} Normal [facility] Comment on above: Order Comment: Reaso n for Exam Hyperlipidemia Performed By: #### C MP, CBC, TSH3, LIPID #### [facility] [address] Serum or plasma anion gap de terminationOrdered By: Prem Goel on 09-18-2023 Anion gap [Moles/Vol] 12.3 mmol/L Normal 6.0-15.0 [facility] Comment on above: Order Comment: Reaso n for Exam Hyperlipidemia Performed By: #### C MP, CBC, TSH3, LIPID #### [facility] [address] Serum or plasma high density lipoprotein (HDL) cholesterol measurementOrdered By: Prem Goel on 09-18-2023 Cholesterol in HDL [Mass/Vol] 69 mg/dL Normal 23-92 [facility] Comment on above: HDL CHOL ATP-III CLA SSIFICATION Cardiovascular RiskHDL > or equal to 60 mg/dL LOWHDL < 40 mg/dL HIGH Order Comment: Reaso n for Exam Hyperlipidemia Result Comment: HDL CHOL ATP-III CLASSIFICATION Cardiovascular Risk HDL > or equal to 60 mg/dL LOW HDL < 40 mg/dL HIGH Performed By: #### C MP, CBC, TSH3, LIPID #### [facility] [address] [place] [address] Serum or plasma total choles terol/high density lipoprotein (HDL) cholesterol mass ratOrdered By: Prem Goel on 09-18-2023 Cholesterol.total/Araceli sterol in HDL [Mass ratio] 4.2 {ratio} Normal <5.0 [facility] Comment on above: Order Comment: Reaso n for Exam Hyperlipidemia Performed By: #### C MP, CBC, TSH3, LIPID #### [facility] [address] [place] [address] Sodium [Moles/volume] in Ser um or PlasmaOrdered By: Prem Goel on 09-18-2023 Sodium [Moles/Vol] 141 mmol/L Normal 136-145 [facility] Comment on above: Order Comment: Reaso n for Exam Hyperlipidemia Performed By: #### C MP, CBC, TSH3, LIPID #### [facility] [address] Thyrotropin [Units/volume] i n Serum or PlasmaOrdered By: Prem Goel on 09-18-2023 TSH Qn 2.60 m[IU]/L Normal 0.45-5.33 [facility] Comment on above: Order Comment: Reaso n for Exam Hyperlipidemia Result Comment: PERF ORMED BY: [place] [address] PATHOLOGIST AVP BEV TALBERT M.D. Performed By: #### C MP, CBC, TSH3, LIPID #### [facility] [address] Triglyceride [Mass/volume] i n Serum or PlasmaOrdered By: Prem Goel on 09-18-2023 Triglyceride [Mass/Vol] 116 mg/dL 0-149 [facility] Comment on above: TRIG ATP III CLASSIF ICATIONTRIG less than 150 mg/dL NormalTRIG 150-199 mg/dL Borderline highTRIG 200-500 mg/dL High TRIG greater than 500 mg/dL Very highStandard traceable to the Center for Disease Conrtrol and Prevention (CDC) test method. Urea nitrogen [Mass/volume] in Serum or PlasmaOrdered By: Prem Goel on 09-18-2023 Urea nitrogen [Mass/Vol] 17 mg/dL Normal 7-25 [facility] Comment on above: Order Comment: Reaso n for Exam Hyperlipidemia Performed By: #### C MP, CBC, TSH3, LIPID #### [facility] [address] Basophils Auto (Bld) [#/Vol] on 08-07-2023 Basophils (Bld) [#/Vol] 0.0 10 3/uL 0.0-0.1 [facility] Basophils/100 WBC Auto (Bld) on 08-07-2023 Basophils/100 WBC (Bld) 0.5 % 0.2-2.0 [facility] Eosinophils/100 WBC Auto (Bl d)on 08-07-2023 Eosinophils/100 WBC (Bld) 1.1 % 0.9-7.0 [facility] Erythrocyte distribution wid th Auto (RBC) [Ratio]on 08-07-2023 Erythrocyte distribution width (RBC) [Ratio] 12.6 % 11.0-15.0 [facility] Estimated glomerular filtrat ion rate (GFR) non- Americanon 08-07-2023 GFR/1.73 sq M.predicted among non-blacks MDRD (S/P/Bld) [Vol rate/Area] mL/min/{1.73_m2} >=60 [facility] Globulin Calc (S) [Mass/Vol] on 08-07-2023 Globulin (S) [Mass/Vol] 3.8 g/dL [facility] Hematocrit Auto (Bld) [Volum e fraction]on 08-07-2023 Hematocrit (Bld) [Volume fraction] 48.4 % 36.0-48.0 [facility] Hemoglobin [Mass/volume] in Bloodon 08-07-2023 Hemoglobin (Bld) [Mass/Vol] 15.4 g/dL 12.0-16.0 [facility] Laboratory - Chemistry and C hemistry - challengeon 08-07-2023 Albumin [Mass/Vol] 3.4 g/dL 3.4-5.0 [facility] ALP [Catalytic activity/Vol] 118 U/L 46-116 [facility] ALT [Catalytic activity/Vol] 23 U/L 14-59 [facility] AST [Catalytic activity/Vol] 20 U/L 15-37 [facility] Bilirubin [Mass/Vol] 0.4 mg/dL 0.2-1.0 [facility] Calcium [Mass/Vol] 9.4 mg/dL 8.5-10.1 [facility] Chloride [Moles/Vol] 106 mmol/L 98-107 [facility] CO2 [Moles/Vol] 28.0 mmol/L 21.0-32.0 [facility] Creatinine [Mass/Vol] 0.80 mg/dL 0.55-1.02 [facility] GFR/1.73 sq M.predicted MDRD (S/P/Bld) [Vol rate/Area] mL/min/{1.73_m2} >=60 [facility] Glucose [Mass/Vol] 121 mg/dL 74-106 [facility] Potassium [Moles/Vol] 3.9 mmol/L 3.5-5.1 [facility] Protein [Mass/Vol] 7.2 g/dL 6.4-8.2 [facility] Sodium [Moles/Vol] 142 mmol/L 136-145 [facility] Urea nitrogen [Mass/Vol] 20.0 mg/dL 7.0-18.0 [facility] Urea nitrogen/Creatinine [Mass ratio] 25.0 mg/mg [facility] Laboratory - Hematology and Cell countson 08-07-2023 Immature granulocytes/100 WBC (Bld) 0.3 % 0.0-0.5 [facility] Leukocytes [#/volume] correc guillermina for nucleated erythrocytes in Blood by Automated counon 08-07-2023 WBC corrected for nucl RBC Auto (Bld) [#/Vol] 7.5 10 3/uL 4.0-11.0 [facility] Lymphocytes Auto (Bld) [#/Vo l]on 08-07-2023 Lymphocytes (Bld) [#/Vol] 3.4 10 3/uL 1.2-3.8 [facility] Lymphocytes/100 WBC Auto (Bl d)on 08-07-2023 Lymphocytes/100 WBC (Bld) 45.6 % 20.5-60.0 [facility] MCH Auto (RBC) [Entitic mass ]on 08-07-2023 MCH (RBC) [Entitic mass] 29.7 pg 26.7-34.0 [facility] MCHC Auto (RBC) [Mass/Vol]on 08-07-2023 MCHC (RBC) [Mass/Vol] 31.8 g/dL 29.9-35.2 [facility] MCV Auto (RBC) [Entitic vol] on 08-07-2023 MCV (RBC) [Entitic vol] 93.3 fL 81.0-99.0 [facility] Monocytes Auto (Bld) [#/Vol] on 08-07-2023 Monocytes (Bld) [#/Vol] 0.7 10 3/uL 0.3-0.8 [facility] Monocytes/100 WBC Auto (Bld) on 08-07-2023 Monocytes/100 WBC (Bld) 8.6 % 1.7-12.0 [facility] Neutrophils Auto (Bld) [#/Vo l]on 08-07-2023 Neutrophils (Bld) [#/Vol] 3.3 10 3/uL 1.4-6.5 [facility] Neutrophils/100 WBC Auto (Bl d)on 08-07-2023 Neutrophils/100 WBC (Bld) 43.9 % 43.0-75.0 [facility] No Panel Informationon 08-06 Eosinophils # (Auto) 0.1 10 3/uL 0.0-0.7 [facility] Immature Granulocyte # (Auto) 0.02 10 3/uL 0.00-0.03 [facility] Platelet mean volume Auto (B ld) [Entitic vol]on 08-07-2023 Platelet mean volume (Bld) [Entitic vol] 12.5 fL 9.5-13.5 [facility] Platelets Auto (Bld) [#/Vol] on 08-07-2023 Platelets (Bld) [#/Vol] 238 10 3/uL 150-450 [facility] RBC Auto (Bld) [#/Vol]on RBC (Bld) [#/Vol] 5.19 10 6/uL 4.20-5.40 [facility] [facility] Serum or plasma albumin/glob ulin mass ratioon 08-07-2023 Albumin/Globulin [Mass ratio] 0.9 {ratio} [facility] Serum or plasma anion gap de terminationon 08-07-2023 Anion gap [Moles/Vol] 11.9 mmol/L Fi [facility] Alanine aminotransferase [En zymatic activity/volume] in Serum or PlasmaOrdered By: Prem Goel on 03-12-2023 ALT [Catalytic activity/Vol] 11 U/L 7-52 [facility] Albumin [Mass/volume] in Ser um or Plasma by Bromocresol green (BCG) dye binding methoOrdered By: Prem Goel on 03-12-2023 Albumin BCG dye [Mass/Vol] 3.9 g/dL 3.5-5.7 [facility] Alkaline phosphatase [Enzyma tic activity/volume] in Serum or PlasmaOrdered By: Prem Goel on 03-12-2023 ALP [Catalytic activity/Vol] 89 U/L 34-104 [facility] Aspartate aminotransferase [ Enzymatic activity/volume] in Serum or PlasmaOrdered By: Prem Goel on 03-12-2023 AST [Catalytic activity/Vol] 15 U/L 13-39 [facility] Basophils Auto (Bld) [#/Vol] Ordered By: Prem Goel on 03-12-2023 Basophils (Bld) [#/Vol] 0.0 10*3/uL 0.0-0.2 [facility] Basophils/100 WBC Auto (Bld) Ordered By: Prem Goel on 03-12-2023 Basophils/100 WBC (Bld) 0.7 % . [facility] Bilirubin.total [Mass/volume ] in Serum or PlasmaOrdered By: Prem Goel on 03-12-2023 Bilirubin [Mass/Vol] 0.6 mg/dL 0.3-1.0 [facility] Calcium [Mass/volume] in Ser um or PlasmaOrdered By: Prem Goel on 03-12-2023 Calcium [Mass/Vol] 9.4 mg/dL 8.6-10.3 [facility] Carbon dioxide, total [Moles /volume] in Serum or PlasmaOrdered By: Prem Goel on 03-12-2023 CO2 [Moles/Vol] 28.2 mmol/L 21.0-31.0 [facility] Chloride [Moles/volume] in S dede or PlasmaOrdered By: Prem Goel on 03-12-2023 Chloride [Moles/Vol] 107 mmol/L 98-107 [facility] Cholesterol [Mass/volume] in Serum or PlasmaOrdered By: Prem Goel on 03-12-2023 Cholesterol [Mass/Vol] 228 mg/dL 140-200 [facility] Comment on above: Chol less than 200 m g/dl low riskChol 201-239 mg/dl borderline riskChol 240 mg/dl and greater high risk Cholesterol in LDL Calc [Mas s/Vol]Ordered By: Prem Goel on 03-12-2023 Cholesterol in LDL [Mass/Vol] 146 mg/dL 0-100 [facility] Comment on above: LDL ATP III CLASSIFI CATIONLDL less than 100 mg/dL OptimalLDL 100-129 mg/dL Near or above optimalLDL 130-159 mg/dL Borderline highLDL 160-189 mg/dL HighLDL greater than 189 mg/dL Very high Cholesterol in VLDL Calc [Ma ss/Vol]Ordered By: Prem Goel on 03-12-2023 Cholesterol in VLDL [Mass/Vol] 15 mg/dL [facility] Creatinine [Mass/volume] in Serum or PlasmaOrdered By: Prem Goel on 03-12-2023 Creatinine [Mass/Vol] 0.77 mg/dL 0.60-1.20 [facility] Eosinophils Auto (Bld) [#/Vo l]Ordered By: Prem Goel on 03-12-2023 Eosinophils (Bld) [#/Vol] 0.1 10*3/uL 0.0-0.45 [facility] Eosinophils/100 WBC Auto (Bl d)Ordered By: Prem Goel on 03-12-2023 Eosinophils/100 WBC (Bld) 2.3 % . [facility] Erythrocyte distribution wid th Auto (RBC) [Ratio]Ordered By: Prem Goel on 03-12-2023 Erythrocyte distribution width (RBC) [Ratio] 12.9 % 11.9-15.3 [facility] Globulin Calc (S) [Mass/Vol] Ordered By: Prem Goel on 03-12-2023 Globulin (S) [Mass/Vol] 2.2 g/dL [facility] Glucose [Mass/volume] in Ser um or PlasmaOrdered By: Prem Goel on 03-12-2023 Glucose [Mass/Vol] 96 mg/dL 70-100 [facility] Comment on above: ADA recommended refe rence rangeRandom Glucose Reference Range is dependent on time and content of last meal. Glucose of more than 200 mg/dL in a nonstressed, ambulatory subject supports the diagnosis of Diabetes Mellitus. Hematocrit Auto (Bld) [Volum e fraction]Ordered By: Prem Goel on 03-12-2023 Hematocrit (Bld) [Volume fraction] 45.2 % 34.0-46.4 [facility] Hemoglobin [Mass/volume] in BloodOrdered By: Prem Goel on 03-12-2023 Hemoglobin (Bld) [Mass/Vol] 14.9 g/dL 11.8-15.4 [facility] Leukocytes [#/volume] correc guillermina for nucleated erythrocytes in Blood by Automated counOrdered By: Prem Goel on 03-12-2023 WBC corrected for nucl RBC Auto (Bld) [#/Vol] 6.1 10*3/uL 3.8-11.6 [facility] Lymphocytes Auto (Bld) [#/Vo l]Ordered By: Prem Goel on 03-12-2023 Lymphocytes (Bld) [#/Vol] 2.6 10*3/uL 1.00-4.8 [facility] Lymphocytes/100 WBC Auto (Bl d)Ordered By: Prem Goel on 03-12-2023 Lymphocytes/100 WBC (Bld) 42.3 % . [facility] MCH Auto (RBC) [Entitic mass ]Ordered By: Prem Goel on 03-12-2023 MCH (RBC) [Entitic mass] 29.8 pg 24.7-34.3 [facility] MCHC Auto (RBC) [Mass/Vol]Or dered By: Prem Goel on 03-12-2023 MCHC (RBC) [Mass/Vol] 33.0 g/dL 32.0-35.0 [facility] MCV Auto (RBC) [Entitic vol] Ordered By: Prem Goel on 03-12-2023 MCV (RBC) [Entitic vol] 90.5 fL 80-100 [facility] Monocytes Auto (Bld) [#/Vol] Ordered By: Prem Goel on 03-12-2023 Monocytes (Bld) [#/Vol] 0.6 10*3/uL 0.0-0.8 [facility] Monocytes/100 WBC Auto (Bld) Ordered By: Prem Goel on 03-12-2023 Monocytes/100 WBC (Bld) 9.1 % . [facility] Neutrophils Auto (Bld) [#/Vo l]Ordered By: Prem Goel on 03-12-2023 Neutrophils (Bld) [#/Vol] 2.8 10*3/uL 1.8-7.7 [facility] Neutrophils/100 WBC Auto (Bl d)Ordered By: Prem Goel on 03-12-2023 Neutrophils/100 WBC (Bld) 45.6 % . [facility] No Panel InformationOrdered By: Prem Goel on 03-12-2023 Estimated GFR (CKD-EPI) > 60.0 mL/Min [facility] Creatinine Clearance (Chem N/A [facility] Nucleated erythrocytes [Pres ence] in Blood by Automated countOrdered By: Prem Goel on 03-12-2023 Nucleated RBC Auto Ql (Bld) 0.1 /100{WBC} 0-0.5 [facility] Platelet mean volume Auto (B ld) [Entitic vol]Ordered By: Prem Goel on 03-12-2023 Platelet mean volume (Bld) [Entitic vol] 10.2 fL 6.3-10.7 [facility] Platelets Auto (Bld) [#/Vol] Ordered By: Prem Goel on 03-12-2023 Platelets (Bld) [#/Vol] 201 10*3/uL 150-450 [facility] Potassium [Moles/volume] in Serum or PlasmaOrdered By: Prem Goel on 03-12-2023 Potassium [Moles/Vol] 4.3 mmol/L 3.5-5.1 [facility] Protein [Mass/volume] in Ser um or PlasmaOrdered By: Prem Goel on 03-12-2023 Protein [Mass/Vol] 6.1 g/dL 6.4-8.9 [facility] RBC Auto (Bld) [#/Vol]Ordere d By: Prem Goel on 03-12-2023 RBC (Bld) [#/Vol] 4.99 10*6/uL 3.60-5.00 [facility] Serum or plasma albumin/glob ulin mass ratioOrdered By: Prem Goel on 03-12-2023 Albumin/Globulin [Mass ratio] 1.8 {ratio} [facility] Serum or plasma anion gap de terminationOrdered By: Prem Goel on 03-12-2023 Anion gap [Moles/Vol] 10.1 mmol/L 6.0-15.[address] [facility] Serum or plasma high density lipoprotein (HDL) cholesterol measurementOrdered By: Prem Goel on 03-12-2023 Cholesterol in HDL [Mass/Vol] 66 mg/dL 23- [facility] Comment on above: HDL CHOL ATP-III CLA SSIFICATION Cardiovascular RiskHDL > or equal to 60 mg/dL LOWHDL < 40 mg/dL HIGH Serum or plasma total choles terol/high density lipoprotein (HDL) cholesterol mass ratOrdered By: Prem Goel on 03-12-2023 Cholesterol.total/Araceli sterol in HDL [Mass ratio] 3.5 {ratio} <5.0 [facility] Sodium [Moles/volume] in Ser um or PlasmaOrdered By: Prem Goel on 03-12-2023 Sodium [Moles/Vol] 141 mmol/L 136-145 [facility] Thyrotropin [Units/volume] i n Serum or PlasmaOrdered By: Prem Goel on 03-12-2023 TSH Qn 1.91 m[IU]/L 0.45-5.33 [facility] Triglyceride [Mass/volume] i n Serum or PlasmaOrdered By: Prem Goel on 03-12-2023 Triglyceride [Mass/Vol] 78 mg/dL 0-149 [facility] Comment on above: TRIG ATP III CLASSIF ICATIONTRIG less than 150 mg/dL NormalTRIG 150-199 mg/dL Borderline highTRIG 200-500 mg/dL High TRIG greater than 500 mg/dL Very highStandard traceable to the Center for Disease Conrtrol and Prevention (CDC) test method. Urea nitrogen [Mass/volume] in Serum or PlasmaOrdered By: Prem Goel on 03-12-2023 Urea nitrogen [Mass/Vol] 18 mg/dL 7-25 [facility] WBC Auto (Bld) [#/Vol]Ordere d By: Prem Goel on 03-12-2023 WBC (Bld) [#/Vol] 6.1 10*3/uL 3.8-11.6 [facility] Albumin [Mass/volume] in Ser um or PlasmaOrdered By: Prem Goel on 04-29-2022 Albumin [Mass/Vol] 3.4 g/dL 3.2-5.5 [facility] Basophils Auto (Bld) [#/Vol] Ordered By: Prem Goel on 04-29-2022 Basophils (Bld) [#/Vol] 0.0 10*3/uL 0.0-0.2 [facility] Basophils/100 WBC Auto (Bld) Ordered By: Prem Goel on 04-29-2022 Basophils/100 WBC (Bld) 0.3 % . [facility] Cholesterol [Mass/volume] in Serum or PlasmaOrdered By: Prem Goel on 04-29-2022 Cholesterol [Mass/Vol] 196 mg/dL 140-200 [facility] Comment on above: Chol less than 200 m g/dl low riskChol 201-239 mg/dl borderline riskChol 240 mg/dl and greater high risk Cholesterol in LDL Calc [Mas s/Vol]Ordered By: Prem Goel on 04-29-2022 Cholesterol in LDL [Mass/Vol] 109 mg/dL 0-100 [facility] Comment on above: LDL ATP III CLASSIFI CATIONLDL less than 100 mg/dL OptimalLDL 100-129 mg/dL Near or above optimalLDL 130-159 mg/dL Borderline highLDL 160-189 mg/dL HighLDL greater than 189 mg/dL Very high Cholesterol in VLDL Calc [Ma ss/Vol]Ordered By: Prem Goel on 04-29-2022 Cholesterol in VLDL [Mass/Vol] 10 mg/dL [facility] Creatinine and Glomerular fi ltration rate.predicted panel (S/P/Bld)Ordered By: Prem Goel on 04-29-2022 Creatinine [Mass/Vol] 0.80 mg/dL 0.44-1.03 [facility] Eosinophils Auto (Bld) [#/Vo l]Ordered By: Prem Goel on 04-29-2022 Eosinophils (Bld) [#/Vol] 0.1 10*3/uL 0.0-0.45 [facility] Eosinophils/100 WBC Auto (Bl d)Ordered By: Prem Goel on 04-29-2022 Eosinophils/100 WBC (Bld) 0.5 % . [facility] Erythrocyte distribution wid th Auto (RBC) [Ratio]Ordered By: Prem Goel on 04-29-2022 Erythrocyte distribution width (RBC) [Ratio] 13.4 % 11.9-15.3 [facility] Estimated glomerular filtrat ion rate (GFR) non- AmericanOrdered By: Prem Goel on 04-29-2022 GFR/1.73 sq M.predicted among non-blacks MDRD (S/P/Bld) [Vol rate/Area] > 60 mL/Min [facility] Globulin Calc (S) [Mass/Vol] Ordered By: Prem Goel on 04-29-2022 Globulin (S) [Mass/Vol] 3.3 g/dL [facility] Hematocrit Auto (Bld) [Volum e fraction]Ordered By: Prem Goel on 04-29-2022 Hematocrit (Bld) [Volume fraction] 46.2 % 34.0-46.4 [facility] Hemoglobin [Mass/volume] in BloodOrdered By: Prem Goel on 04-29-2022 Hemoglobin (Bld) [Mass/Vol] 14.9 g/dL 11.8-15.4 [facility] Laboratory - Hematology and Cell countsOrdered By: Prem Goel on 04-29-2022 Nucleated RBC/100 WBC (Bld) [Ratio] 0.0 % 0-0.5 [facility] Leukocytes [#/volume] in Blo od by Automated countOrdered By: Prem Goel on 04-29-2022 WBC (Bld) [#/Vol] 10.7 10*3/uL 4.5-11.0 [facility] Lymphocytes Auto (Bld) [#/Vo l]Ordered By: Prem Goel on 04-29-2022 Lymphocytes (Bld) [#/Vol] 1.9 10*3/uL 1.00-4.8 [facility] Lymphocytes/100 WBC Auto (Bl d)Ordered By: Prem Goel on 04-29-2022 Lymphocytes/100 WBC (Bld) 17.7 % . [facility] MCH Auto (RBC) [Entitic mass ]Ordered By: Prem Goel on 04-29-2022 MCH (RBC) [Entitic mass] 30.0 pg 24.7-34.3 [facility] MCHC Auto (RBC) [Mass/Vol]Or dered By: Prem Goel on 04-29-2022 MCHC (RBC) [Mass/Vol] 32.1 g/dL 32.0-35.0 [facility] MCV Auto (RBC) [Entitic vol] Ordered By: Prem Goel on 04-29-2022 MCV (RBC) [Entitic vol] 93.4 fL 80-100 [facility] Monocytes Auto (Bld) [#/Vol] Ordered By: Prem Goel on 04-29-2022 Monocytes (Bld) [#/Vol] 1.1 10*3/uL 0.0-0.8 [facility] Monocytes/100 WBC Auto (Bld) Ordered By: Prem Goel on 04-29-2022 Monocytes/100 WBC (Bld) 10.4 % . [facility] Neutrophils Auto (Bld) [#/Vo l]Ordered By: Prem Goel on 04-29-2022 Neutrophils (Bld) [#/Vol] 7.6 10*3/uL 1.8-7.7 [facility] Neutrophils/100 WBC Auto (Bl d)Ordered By: Prem Goel on 04-29-2022 Neutrophils/100 WBC (Bld) 71.1 % . [facility] No Panel InformationOrdered By: Prem Goel on 04-29-2022 Estimated GFR () > 60 mL/Min [facility] Comment on above: GFR estimated refere nce range: According to KDOQI guidelines, <60 ml/min/1.73m2 is sufficient to diagnose a patient with chronic kidney disease. Pharmacy Creatinine Clearance (Chem N/A [facility] Platelet mean volume Auto (B ld) [Entitic vol]Ordered By: Prem Goel on 04-29-2022 Platelet mean volume (Bld) [Entitic vol] 10.2 fL 6.3-10.7 [facility] Platelets Auto (Bld) [#/Vol] Ordered By: Prem Goel on 04-29-2022 Platelets (Bld) [#/Vol] 238 10*3/uL 150-450 [facility] Protein [Mass/volume] in Ser um or PlasmaOrdered By: Prem Goel on 04-29-2022 Protein [Mass/Vol] 6.7 g/dL 6.1-7.9 [facility] RBC Auto (Bld) [#/Vol]Ordere d By: Prem Goel on 04-29-2022 RBC (Bld) [#/Vol] 4.95 10*6/uL 3.60-5.00 [facility] Serum or plasma alanine tobias otransferase measurement without P-5'-P (enzymatic activiOrdered By: Prem Goel on 04-29-2022 ALT No additional P-5'-P [Catalytic activity/Vol] 18 U/L 10-60 [facility] Serum or plasma albumin/glob ulin mass ratioOrdered By: rPem Goel on 04-29-2022 Albumin/Globulin [Mass ratio] 1.0 {ratio} [facility] Serum or plasma alkaline joshua sphatase measurement (enzymatic activity/volume)Ordered By: Prem Goel on 04-29-2022 ALP [Catalytic activity/Vol] 100 U/L 32-92 [facility] Serum or plasma anion gap de terminationOrdered By: Prem Goel on 04-29-2022 Anion gap [Moles/Vol] 10.5 mmol/L 6.0-15.0 [facility] Serum or plasma aspartate am inotransferase measurement (enzymatic activity/volume)Ordered By: Prem Goel on 04-29-2022 AST [Catalytic activity/Vol] 19 U/L 10-42 [facility] Serum or plasma calcium erica urement (mass/volume)Ordered By: Prem Goel on 04-29-2022 Calcium [Mass/Vol] 9.2 mg/dL 8.2-10.2 [facility] Serum or plasma chloride omaira surement (moles/volume)Ordered By: Prem Goel on 04-29-2022 Chloride [Moles/Vol] 102 mmol/L 95-114 [facility] Serum or plasma glucose erica urement (mass/volume)Ordered By: Prem Goel on 04-29-2022 Glucose [Mass/Vol] 111 mg/dL 70-100 [facility] Comment on above: ADA recommended refe rence rangeRandom Glucose Reference Range is dependent on time and content of last meal. Glucose of more than 200 mg/dL in a nonstressed, ambulatory subject supports the diagnosis of Diabetes Mellitus. Serum or plasma high density lipoprotein (HDL) cholesterol measurementOrdered By: Prem Goel on 04-29-2022 Cholesterol in HDL [Mass/Vol] 76 mg/dL 35-85 [facility] Comment on above: HDL CHOL ATP-III CLA SSIFICATION Cardiovascular RiskHDL > or equal to 60 mg/dL LOWHDL < 40 mg/dL HIGH Serum or plasma potassium me asurement (moles/volume)Ordered By: Prem Goel on 04-29-2022 Potassium [Moles/Vol] 4.0 mmol/L 3.5-5.1 [facility] Serum or plasma sodium measu rement (moles/volume)Ordered By: Prem Goel on 04-29-2022 Sodium [Moles/Vol] 137 mmol/L 136-146 [facility] Serum or plasma total biliru bin measurement (mass/volume)Ordered By: Prem Goel on 04-29-2022 Bilirubin [Mass/Vol] 0.8 mg/dL 0.3-1.2 [facility] Serum or plasma total carbon dioxide measurement (moles/volume)Ordered By: Prem Goel on 04-29-2022 CO2 [Moles/Vol] 28.5 mmol/L 22.0-30.0 [facility] Serum or plasma total choles terol/high density lipoprotein (HDL) cholesterol mass ratOrdered By: Prem Goel on 04-29-2022 Cholesterol.total/Araceli sterol in HDL [Mass ratio] 2.6 {ratio} <5.0 [facility] Serum or plasma urea nitroge n measurement (mass/volume)Ordered By: Prem Goel on 04-29-2022 Urea nitrogen [Mass/Vol] 14 mg/dL 02-28 [facility] TSH DL <= 0.005 mIU/L QnOrde red By: Prem Goel on 04-29-2022 TSH Qn 1.74 m[IU]/L 0.45-5.33 [facility] Triglyceride [Mass/volume] i n Serum or PlasmaOrdered By: Prem Goel on 04-29-2022 Triglyceride [Mass/Vol] 53 mg/dL 35-149 [facility] Comment on above: TRIG ATP III CLASSIF ICATIONTRIG less than 150 mg/dL NormalTRIG 150-199 mg/dL Borderline highTRIG 200-500 mg/dL High TRIG greater than 500 mg/dL Very highStandard traceable to the Center for Disease Conrtrol and Prevention (CDC) test method. A1C HEMOGLOBINon 04-30-2021 HbA1c (Bld) [Mass fraction] 5.8 % [facility] Other HbA1c (Bld) [Mass fraction]o n 04-30-2021 A1C HEMOGLOBIN [facility] [employer] Other [facility] CARDIAC STRESS/REST (DOUGLAS CARDIAL PERFUSION/MIBI)on 04-09-2020 [facility] CARDIAC STRESS/REST (MYOCARDIAL PERFUSION/MIBI) Patient Name: MARY WILKERSON STUDY: MYOCARDIAL PERFUSION STRESS TEST WITH LEXISCAN Performing facility: [facility], [address] [place] [address], [address] Provider: WP SMYTH PCP: Dr. PREM GOEL Supervising provider: WP SMYTH INDICATION: CP HISTORY: Gender: F; Age: 84 y/o ; Height: 157.48 cm; Weight: 78.5387243 kg. High Cholesterol; CP Family HX CAD; Denies smoking. COMPARISON: Previous nuclear testing completed at [facility]. ACCESSION NUMBER(S): [id number] ORDERING CLINICIAN: MATT SMYTH TECHNIQUE: ONE DAY [...] comparison. Electronically signed by: BRIELLE DUVAL MD [facility] CARDIAC STRESS/REST INJE CTIONon 04-09-2020 [facility] CARDIAC STRESS/REST INJECTION Patient Name: MARY WILKERSON STUDY: MYOCARDIAL PERFUSION STRESS TEST WITH LEXISCAN Performing facility: [facility], [address] [place] [address], [address], [address] Provider: WP SMYTH PCP: Dr. PREM GOEL Supervising provider: WP SMYTH INDICATION: CP HISTORY: Gender: F; Age: 84 y/o ; Height: 157.48 cm; Weight: 78.3121850 kg. High Cholesterol; CP Family HX CAD; Denies smoking. COMPARISON: Previous nuclear testing completed at [facility]. ACCESSION NUMBER(S): [id number] ORDERING CLINICIAN: MATT SMYTH TECHNIQUE: ONE DAY [...] comparison. Electronically signed by: BRIELLE DUVAL MD [facility] PART 2 STRESS OR REST (N O CHARGE)on 04-09-2020 [facility] PART 2 STRESS OR REST (NO CHARGE) Patient Name: MARY WILKERSON STUDY: MYOCARDIAL PERFUSION STRESS TEST WITH LEXISCAN Performing facility: [facility], [address] [place] [address], [address], [address] Provider: WP SMYTH PCP: Dr. PREM GOEL Supervising provider: WP SMYTH INDICATION: CP HISTORY: Gender: F; Age: 84 y/o ; Height: 157.48 cm; Weight: 78.8777782 kg. High Cholesterol; CP Family HX CAD; Denies smoking. COMPARISON: Previous nuclear testing completed [id number] at [facility]. ACCESSION NUMBER(S): [id number] ORDERING CLINICIAN: MATT SMYTH TECHNIQUE: ONE DAY [...] Electronically signed by: BRIELLE DUVAL MD Normal [facility] Vital Signs Date Time Vital Sign Value Performing Clinician Facility 04-04-2024 08:12-0400 Body height 154.94 cm DO [employer] Work Phone: [facility] 04-04-2024 08:12-0400 Body mass index (BMI) [Ratio] 30.2 kg/m2 DO Prem [employer] Work Phone: [facility] 04-04-2024 08:12-0400 Body weight 72.57 kg DO Prem [employer] Work Phone: [facility] 04-04-2024 08:12-0400 Diastolic blood pressure 80 mm[Hg] DO Prem [employer] Work Phone: [facility] 04-04-2024 08:12-0400 Heart rate 65 /min DO Prem [employer] Work Phone: [facility] 04-04-2024 08:12-0400 Respiratory rate 16 /min DO Prem [employer] Work Phone: [facility] 04-04-2024 08:12-0400 SaO2% (BldA) [Mass fraction] 97 % DO Prem [employer] Work Phone: [facility] 04-04-2024 08:12-0400 Systolic blood pressure 118 mm[Hg] DO Prem Kuns Work Phone: [facility] 12-29-2023 10:06-0400 Body height 154.94 cm DO Prem Kuns Work Phone: [facility] 12-29-2023 10:06-0400 Body mass index (BMI) [Ratio] 30.2 kg/m2 DO Prem Kuns Work Phone: [facility] 12-29-2023 10:06-0400 Body weight 72.57 kg DO Prem Kuns Work Phone: [facility] 12-29-2023 10:06-0400 Diastolic blood pressure 80 mm[Hg] DO Prem Kuns Work Phone: [facility] 12-29-2023 10:06-0400 Heart rate 56 /min DO Prem Kuns Work Phone: [facility] 12-29-2023 10:06-0400 Respiratory rate 16 /min DO Prem Kuns Work Phone: [facility] 12-29-2023 10:06-0400 SaO2% (BldA) [Mass fraction] 96 % DO Prem Kuns Work Phone: [facility] 12-29-2023 10:06-0400 Systolic blood pressure 124 mm[Hg] DO Prem Kuns Work Phone: [facility] 09-24-2023 09:41-0400 Body height 154.94 cm DO Prem Kuns Work Phone: [facility] 09-24-2023 09:41-0400 Body mass index (BMI) [Ratio] 30.9 kg/m2 DO Prem Kuns Work Phone: [facility] 09-24-2023 09:41-0400 Body weight 74.38 kg DO Prem Kuns Work Phone: [facility] 09-24-2023 09:41-0400 Diastolic blood pressure 80 mm[Hg] DO Prem Kuns Work Phone: [facility] 09-24-2023 09:41-0400 Heart rate 57 /min DO Prem Kuns Work Phone: [facility] 09-24-2023 09:41-0400 Respiratory rate 16 /min DO Prem Kuns Work Phone: [facility] 09-24-2023 09:41-0400 SaO2% (BldA) [Mass fraction] 92 % DO Prem Kuns Work Phone: [facility] 09-24-2023 09:41-0400 Systolic blood pressure 138 mm[Hg] DO Prem Kuns Work Phone: [facility] 03-17-2023 08:45-0400 Body height 154.94 cm Prem Raulitos Other [facility] [employer] Other 03-17-2023 08:45-0400 Body mass index (BMI) [Ratio] 30.98 kg/m2 Prem Kuns Other [employer] [facility] [employer] Other 03-17-2023 08:45-0400 Body weight 74.39 kg Prem Raulitos Other [facility] Other 03-17-2023 08:45-0400 Diastolic blood pressure 76 mm[Hg] Prem Kuns Other [facility] Other 03-17-2023 08:45-0400 Respiratory rate 16 /min Prem Kuns Other [facility] Other 03-17-2023 08:45-0400 SaO2% (BldA) [Mass fraction] 96 % Prem Kuns Other [facility] Other 03-17-2023 08:45-0400 Systolic blood pressure 120 mm[Hg] Prem Kuns Other [facility] Other 11-12-2022 14:45-0400 Body height 154.94 cm Prem Kuns Other [facility] Other 11-12-2022 14:45-0400 Body mass index (BMI) [Ratio] 31.36 kg/m2 Prem Kuns Other [facility] Other 11-12-2022 14:45-0400 Body weight 75.3 kg Prem Kuns Other [facility] Other 11-12-2022 14:45-0400 Diastolic blood pressure 68 mm[Hg] Prem Kuns Other [facility] Other 11-12-2022 14:45-0400 Respiratory rate 16 /min Prem Kuns Other [facility] Other 11-12-2022 14:45-0400 SaO2% (BldA) [Mass fraction] 93 % Prem Kuns Other [facility] Other 11-12-2022 14:45-0400 Systolic blood pressure 124 mm[Hg] Prem Kuns Other [facility] Other 01-28-2022 11:15-0400 Body height 154.94 cm Prem Kuns Other [facility] Other 01-28-2022 11:15-0400 Body mass index (BMI) [Ratio] 30.98 kg/m2 Prem Kuns Other [facility] Other 01-28-2022 11:15-0400 Body weight 74.39 kg Prem Kuns Other [facility] Other 01-28-2022 11:15-0400 Diastolic blood pressure 82 mm[Hg] Prem Kuns Other [facility] Other 01-28-2022 11:15-0400 Respiratory rate 18 /min Prem Kuns Other [facility] Other 01-28-2022 11:15-0400 SaO2% (BldA) [Mass fraction] 95 % Prem Kuns Other [facility] Other 01-28-2022 11:15-0400 Systolic blood pressure 142 mm[Hg] Prem Kuns Other [facility] Other 08-15-2021 14:45-0500 Body height 154.94 cm Prem Kuns Other [facility] Other 08-15-2021 14:45-0500 Body mass index (BMI) [Ratio] 30.04 kg/m2 Perm [employer] Other [facility] Other 08-15-2021 14:45-0500 Body weight 72.12 kg Prem Kuns Other [facility] Other 08-15-2021 14:45-0500 Diastolic blood pressure 80 mm[Hg] Prem Kuns Other [facility] Other 08-15-2021 14:45-0500 Respiratory rate 16 /min Prem Kuns Other [facility] Other 08-15-2021 14:45-0500 SaO2% (BldA) [Mass fraction] 99 % Prem Kuns Other [facility] Other 08-15-2021 14:45-0500 Systolic blood pressure 142 mm[Hg] Prem Kuns Other [facility] Other 04-30-2021 11:45-0500 Body height 154.94 cm Prem Kuns Other [facility] Other 04-30-2021 11:45-0500 Body mass index (BMI) [Ratio] 29.74 kg/m2 Prem Kuns Other [facility] Other 04-30-2021 11:45-0500 Body weight 71.4 kg Prem Kuns Other [facility] Other 04-30-2021 11:45-0500 Diastolic blood pressure 87 mm[Hg] Prem Kuns Other [facility] Other 04-30-2021 11:45-0500 Respiratory rate 18 /min Prem Kuns Other [facility] Other 04-30-2021 11:45-0500 SaO2% (BldA) [Mass fraction] 93 % Prem Kuns Other [facility] Other 04-30-2021 11:45-0500 Systolic blood pressure 136 mm[Hg] Prem Kuns Other [facility] Other 02-28-2021 11:15-0400 Body height 154.94 cm Premsaloni Cabezass Other [facility] Other 02-28-2021 11:15-0400 Body mass index (BMI) [Ratio] 29.85 kg/m2 Prem Kuns Other [facility] Other 02-28-2021 11:15-0400 Body weight 71.67 kg Prem Kuns Other [facility] Other 02-28-2021 11:15-0400 Diastolic blood pressure 86 mm[Hg] Prem Kuns Other [facility] Other 02-28-2021 11:15-0400 Respiratory rate 16 /min Prem Raulitos Other [facility] Other 02-28-2021 11:15-0400 SaO2% (BldA) [Mass fraction] 97 % Prem Raulitos Other [facility] Other 02-28-2021 11:15-0400 Systolic blood pressure 134 mm[Hg] Prem Raulitos Other [facility] Other Encounters Encounter Date Encounter Type Care Provider Facility Start: 04-04-2024 End: 04-04-2024 ambulatory DO Prem Kuns Work Phone: [facility] Work Phone: Start: 04-04-2024 End: 04-04-2024 Patient encounter procedure DO Prem Kuns Work Phone: [facility] Work Phone: Start: 04-04-2024 End: 04-04-2024 ambulatory DO Prem Kuns Work Phone: [facility] Work Phone: Start: 04-04-2024 End: 04-04-2024 Patient encounter procedure DO Prem Kuns Work Phone: [facility] [place] Work Phone: Start: 03-30-2024 End: 03-30-2024 Patient encounter procedure DO Prem Kuns Work Phone: [facility] Work Phone: Start: 03-30-2024 End: 03-30-2024 ambulatory DO Prem Kuns Work Phone: [facility] Work Phone: Start: 12-29-2023 End: 12-29-2023 ambulatory DO Prem Kuns Work Phone: [facility] Work Phone: Start: 12-29-2023 End: 12-29-2023 Patient encounter procedure DO Prem Kuns Work Phone: [facility] [place] Work Phone: Start: 10-12-2023 End: 10-12-2023 ambulatory DO Prem Kuns Work Phone: [facility] Work Phone: Start: 10-12-2023 End: 10-12-2023 Patient encounter procedure DO Prem Kuns Work Phone[facility] [place] Work Phone: Start: 10-06-2023 End: 10-06-2023 Patient encounter procedure DO Prem Kuns Work Phone: [facility] Work Phone: Start: 10-06-2023 End: 10-06-2023 ambulatory DO Prem Kuns Work Phone: [facility] Work Phone: Start: 09-24-2023 End: 09-24-2023 ambulatory DO Prem Kuns Work Phone: [facility] Work Phone: Start: 09-24-2023 End: 09-24-2023 Patient encounter procedure DO Prem Kuns Work Phone: [facility] Family [facility] [place] Work Phone: Start: 09-18-2023 End: 09-18-2023 Patient encounter procedure DO Prem Kuns Work Phone: [facility] Work Phone: Start: 09-18-2023 End: 09-18-2023 ambulatory DO Prem Kuns Work Phone: [facility] Work Phone: Start: 08-11-2023 Non-patient / Non-visit DO Prem Kuns Work Phone: [facility] Work Phone: Start: 08-07-2023 Non-patient / Non-visit DO Prem Kuns Work Phone: [facility] Work Phone: Start: 08-03-2023 Non-patient / Non-visit DO Prem Kuns Work Phone: [facility] Work Phone: Start: 05-27-2023 End: 05-27-2023 ambulatory Prem Kuns Other [facility] [employer] Other Start: 05-27-2023 Telephone encounter Prem Kuns [facility] Start: 03-17-2023 End: 03-17-2023 ambulatory Prem Kuns Other [facility] Other Start: 03-17-2023 Office outpatient visit 25 minutes [facility] Start: 03-12-2023 End: 03-12-2023 ambulatory DO Premsaloni Cabezass Work Phone: [facility] Work Phone: Start: 03-12-2023 End: 03-12-2023 Patient encounter procedure DO Prem Raulitos Work Phone: [facility] Work Phone: Start: 01-30-2023 End: 01-30-2023 ambulatory Prem Goel Other [facility] Other Start: 01-30-2023 Telephone encounter [facility] Start: 11-12-2022 End: 11-12-2022 ambulatory Prem Goel Other [facility] Other Start: 11-12-2022 Office outpatient visit 25 minutes [facility] Start: 11-04-2022 End: 11-04-[address] PREM GOEL Facility:[facility] Start: 11-04-2022 Telephone encounter [facility] Start: 10-14-2022 End: 10-14-[address] PREM GOEL Facility:[facility] Start: 10-02-2022 End: 10-03-2022 ambulatory DONELL MICHELMIPATHJavier . Facility:[facility] Start: 09-09-2022 End: 09-09-[address] PREM GOEL Facility:[facility] Start: 09-04-2022 End: 09-05-[address] PREM GOEL Facility:[facility] Start: 08-19-2022 End: 08-19-[address] BILL RAMOS Facility:[facility] Start: 07-22-2022 End: 07-23-[address] PREM GOEL Facility:[facility] Start: 05-08-2022 End: 05-09-2022 ambulatory AIXA GARCIA . Facility:[facility] Start: 05-06-2022 Annual wellness visit Prem arevalo Other [facility] Other Start: 04-29-2022 End: 04-29-2022 ambulatory DO Prem Goel Work Phone: [facility] Work Phone: Start: 04-29-2022 End: 04-29-2022 Patient encounter procedure DO Prem Goel Work Phone: [facility] [place] Start: 03-06-2022 End: 03-07-[address] KHOA RAMOS . Facility:[facility] Start: 02-27-2022 End: 02-27-2022 ambulatory Prem Cabezaseddie Other [facility] Other Start: 02-27-2022 Telephone encounter Prem Cabezaseddie [facility] Start: 02-18-2022 End: 02-18-[address] KHOA RAMOS . Facility:[facility] Start: 01-28-2022 End: 01-28-2022 ambulatory Prem Cabezaseddie Other [facility] Other Start: 01-28-2022 Office outpatient visit [address] [facility] Start: 01-21-2022 End: 01-22-[address] KHOA RAMOS . Facility:[facility] Start: 12-02-2021 End: 12-02-2021 ambulatory Premsaloni Goel Other [facility] Other Start: 12-02-2021 Telephone encounter Premsaloni Cabezass [facility] Start: 11-28-2021 End: 11-28-2021 ambulatory Prem Raymon Other [facility] Other Start: 11-28-2021 Telephone encounter Prem Raulitos [facility] Start: 10-02-2021 End: 10-02-2021 ambulatory Prem Kuns Other [facility] Other Start: 10-02-2021 Telephone encounter Prem Kuns [facility] [place] Start: 09-10-2021 End: 09-10-2021 ambulatory Prem Kuns Other [facility] Other Start: 09-10-2021 Telephone encounter Prem Kuns [facility] Start: 08-15-2021 End: 08-15-2021 ambulatory Prem Kuns Other [facility] Other Start: 08-15-2021 Office outpatient visit 25 minutes [facility] Start: 08-12-2021 End: 08-12-2021 ambulatory Prem Kuns Other [facility] Other Start: 08-12-2021 Telephone encounter Prem Kuns [facility] Start: 06-13-2021 End: 06-13-2021 ambulatory Prem Kuns Other [facility] Other Start: 06-13-2021 Telephone encounter [facility] Start: 04-30-2021 End: 04-30-2021 ambulatory Prem Kuns Other [facility] Other Start: 04-30-2021 Office outpatient visit 25 minutes Prem [facility]uns [facility] Start: 02-28-2021 End: 02-28-2021 ambulatory Prem Kuns Other [facility] Other Start: 02-28-2021 Patient encounter procedure Prem Kuns [facility] Start: 08-18-2019 Annual wellness visit Prem Ku ns Other [facility] Other Procedures Date Procedure Procedure Detail Performing Clinician Start: 10-12-2023 Quick Strep (POC) DO Br ett Kuns Work Phone: Start: 10-12-2023 RSV (POC) DO Prem K uns Work Phone: Plan of Treatment Date Care Activity Detail Author Start: 04-04-2024 Bacteria identified in Urine by Culture Urine Culture [facility] Start: 04-04-2024 Urine culture [facility] Comprehensive metabo lic 2000 panel - Serum or Plasma [facility] Glucose measurement estimated from glycated hemoglobin [facility] Glucose measurement estimated from glycated hemoglobin [facility] Immunizations Immunization Date Immunization Notes Care Provider Fa cility 06-13-2021 COVID-19 Vaccine Pfizer - Documentation Purposes Only Prem Kuns Other [facility] 07-19-2020 COVID-19 Vaccine Pfizer - Documentation Purposes Only Prem Kuns Other [facility] 06-29-2020 COVID-19 Vaccine Pfizer - Documentation Purposes Only Prem Kuns Other [facility] NEGATED: Highlighted row has not occurred!05-06-2022 influenza, seasonal, injectable Patient Objection Prem Kuns Other [facility] NEGATED: Highlighted row has not occurred!05-06-2022 Prevnar 20 Patient Objection Prem Kuns Other [facility] NEGATED: Highlighted row has not occurred!02-17-2019 influenza, seasonal, injectable Patient Objection Prem Kuns Other [facility] NEGATED: Highlighted row has not occurred!04-07-2017 influenza, seasonal, injectable Patient Objection Prem Kuns Other [facility] Payers Date Payer Category Payer Self-pay [id number] Private Health Insurance [id number] 1937 Unknown [id number] 1937 Unknown [id number] [id number] 1937 Unknown [id number] [id number] 1937 Unknown [id number] [id number] 1937 Unknown [id number] [id number] 1937 Unknown [id number] [id number] 1937 Unknown [id number] [id number] 1937 Unknown [id number] 2.16.840.1.930868.3.579.2.593 1937 Unknown [id number] [id number] 1937 Unknown [id number] [id number] 1937 Unknown [id number] [id number] Medicare Medicare [id number] Unknown [facility] Health Claims [id number] Unknown [id number] [id number] Unknown [id number] [id number] Unknown [id number] 2.16.840.1.780054.3.579.2.531 Unknown [id number] [id number] Social History Date Type Detail Facility Unknown if ever smoked [facility] Other Sex Assigned At Sex Assigned At Bir th [facility] Other Start: 03-28-2020 End: 12-29-2023 Tobacco smoking status NHIS Never smoked tobacco (finding) [facility] Start: 1935 Sex Assigned At Female F [facility] Clinical Notes 12-21-2007 to 04-04-2024 Note Date & Type Note Facility 04-04-2024 Evaluation note Authored April 04, 2024 8:14am The above note written by JUVENAL Diamond acting as human recorder, note dictated by Dr. Prem Goel. [facility] Work Phone: [phone] 276-862710-10-2023 Evaluation note* Encounter Date Diagnosis Assessment Notes Treatment Notes Treatment Clinical Notes Mar, Hyperlipidemia (ICD-10 - E78.5) Blood [...] Zetia along with dietary moderation and daily activity/exercis e.We will continue to monitor. Mar, Hyperglycemia (ICD-1 0 - R73.9) Hgb a1c is stable at 6.0 . Encouraged to watch diet and increase exercise regimen; we will continue to monitor. [facility] Other 08-25-2023 Evaluation note* Encounter Date Diagnosis Assessment Notes Treatment Notes Treatment Clinical Notes Jan, Hyperlipidemia (ICD-10 - E78.5) [facility] Other 06-07-2023 Evaluation note* Encounter Date Diagnosis Assessment Notes Treatment Notes Treatment Clinical Notes Nov, Bronchopneumonia (ICD-10 - J18.0) [facility] ER records reviewed from both 11/06 [...] (ICD-10 - R59.0) Noted on imaging from [place] [facility]. I do believe this is likely due to her being ill. She has never smoked. Discussed these findings with the and the patient if symptoms persist we may have pulmonary evaluation but at this time patient appears to be improving [facility] Other 04-27-2023 NoteCONSULTATION CONSULTATION DATE: 10/02/2022 TO: [...] our patients to inform us about any bwqo-jtl-wlirivi medications or herbal remedies/nutritional supplements/alternative remedies. 2. [...] treatment options with their primary care provider.[facility] [id number] Note CONSULTATION CONSULTATION DATE: 09/04/2022 TO: Dr. [...] mg pills, 1-2 at h.s. as tolerated.[facility] [id number] NoteCONSULTATION CONSULTATION DATE: 07/22/2022 CHIEF COMPLAINT: Right [...] her understand and would like to proceed,.[facility] 05-08-2022 NoteCONSULTATION CONSULTATION DATE: 05/08/2022 HISTORY OF [...] in three months' time unless otherwise indicated.[facility] [id number] NoteCONSULTATION CONSULTATION DATE: 03/06/2022 This is a [...] of care and all questions were answered.[facility] [id number] Evaluation note* Encounter Date Diagnosis Assessment Notes Treatment Notes Treatment Clinical Notes Feb, Hyperlipidemia (ICD-10 - E78.5) [facility] Other 08-23-2022 Evaluation note* Encounter Date Diagnosis [...] E78.5) Jan, Hyperglycemia (ICD-1 0 - R73.9) [facility] Other 08-16-2022 NoteCONSULTATION CONSULTATION DATE: 01/21/2022 CHIEF [...] her understand. CC: Dr. Raphael Escamilla D.O.[facility] [id number] NotePROCEDURE: GE Signa HDXT 1.5 Sagittal T1, T2, STIR [...] and signed by Ralph Figueroa on 10/25/2021 1510Nortjeanne [facility]03-10-2022 Evaluation note* Encounter Date Diagnosis Assessment Notes [...] we will attempt to order an MRI. [facility] Other 01-06-2022 Evaluation note* Encounter Date Diagnosis Assessment Notes Treatment Notes Treatment Clinical Notes Jun, Hyperlipidemia (ICD-10 - E78.5) [facility] Other 11-23-2021 Evaluation note* Encounter Date Diagnosis [...] work-up i.e. CAT scan of her abdomen. [facility] Other 09-23-2021 Evaluation note* Encounter Date Diagnosis [...] LPN, under direct supervision of Dr. Prem Kuns. Document reviewed and amended by provider signed [...] monitor, a blood work order was provided. [facility] Other 07-15-2008 History general Narrative - Reported* Type Description Date Medical History Colonoscopy 12-21-07 Medical History Stress Test 01-18-[address] Scan Abdomen and Pelvis 06-07 Medical History Mammogram 2-11 Medical History Pap 1-10 Medical [place] [facility] [place] 10/13/13[place]ammogram at [facility] Medical History 12/2015 mammogram Medical History 12/2016 Mammogram Medical History 07/2019 Mammogram Medical History Cardiolite 04/09/20 Surgical History wisdom teeth Hospitalization History child [facility] Other 07-15-2008 History general Narrative - Reported* Type Description Date Medical History Colonoscopy 12-21-07 Medical History Stress Test 01-18-[address] Scan Abdomen and Pelvis 06-07 Medical History Mammogram 2-11 Medical History Pap 1-10 Medical History 02/[place] [facility] [place] History 10/13/13-mammogram at [facility] Medical History 12/2015 mammogram Medical History 12/2016 Mammogram Medical History 07/2019 Mammogram Medical History Cardiolite 04/09/20 Medical History hearing aids Surgical History wisdom teeth Hospitalization History child [facility] Other Evaluation noteNo InformationNort [employer] Other evaluwmosm noteNo assessment information available [facility] Work Phone: Evaluation note* Diagnosis Onset Date Resolution Status Degenerative disc disease, lumbar acute Encounter for subsequent alphonse [facility] wellness visit (AWV) in Medicare patient acute Fall acute Hyperlipidemia acute Lower extremity edema acute Prediabetes acute Screening mammogram for breast cancer acute Urinary incontinence acute [facility] Work Phone: Evaluation note* Author Beena Packer [facility] Authored December 29, 2023 10:0 4am The above note written by JUVENAL Diamond acting as human recorder, note dictated by Dr.Brett Goel. [facility] Work Phone: Evaluation note* Author Beena Packer [facility] Authored April 04, 2024 8 :14am The above note written by JUVENAL Diamond acting as human recorder, note dictated by Dr. Prem Goel. [facility] Work Phone: Summary Purpose Family History No Family History Records Found Relationship Condition Age at Onset Recorded Date/T adry father Unknown grandparent Unknown Not Specified Unknown Relationship Condition Age at Onset Recorded Date/T adry father Unknown grandparent Unknown mother Unknown Advance Directives No Advanced Directives Records [...] Degenerative disc disease, lumbar Lower extremity edema Chief Complaint 3 month f/u Reason for Visit Chronic left shoulde r pain Hearing loss Hyperlipidemia Urge incontinence of urine Chief Complaint 3 month f/u Reason for Visit Chronic left shoulde r pain Hearing loss Hyperlipidemia Urge incontinence of urine Urinary frequency Additional Source Comments INFORMATION SOURCE (unrecogn ized section and content) DATE CREATED AUTHOR 04/11/2020 [facility] DATE CREATED AUTHOR AUTHOR'S ORGANIZ ATION 10/27/2021 [facility] dical Specialist DATE CREATED AUTHOR AUTHOR'S ORGANIZ ATION 10/17/2022 [facility] DATE CREATED AUTHOR AUTHOR'S ORGANIZ ATION 04/10/2024 [facility] REASON FOR VISIT (unrecogniz ed [...] Dates Prem Goel , DO Primary Care Provider, Attending Provi alexey Active Team Status: Inactive Member Role Status Dates Prem Cabezass , DO Primary Care Provide r, Attending Provider Active Start: September 24, 2023 End: September 24, 2023 Team Status: Inactive Member Role Status Dates Prem Cabezass , DO Primary Care Provide r, Attending Provider Active Start: March 30, 2024 End: March 30, 2024 Team Status: Inactive Member Role Status Dates Prem Raulitos , DO Primary Care Provide r, Attending Provider Active Start: April 04, 2024 End: April 04, 2024 Goals (unrecognized section and content) Goals may [...] BE BASED ON THE PRIMARY CLINICAL RECORDS. [employer] provides no warranty or guarantee of the accuracy or completeness of information in this document.
--- NOTE | 2024-07-13 11:52 | PM.CN ---
Consult Note: HPI Data of Consult Patient: known to practice within the last 3 years Requesting Physician: Mercy Pak NP Primary Care Provider: PREM GOEL Consult Narrative Reason for consult: f/u Narrative: Mary King a 88 year old female presents for evaluation of chronic back pain. pain well controlled since last visit, today pain 0/10 increasing to 5/10 intermittently. Pt has been doing HEP as tolerated ongoing. Currently utilizes tylenol PRN, diclofenac 75mg BID PRN, and zonegran 50mg BID with benefit without side effects. denies falls since last visit. cc:: CC: Mercy Pak NP Review of Systems ROS Status of ROS 10 or more systems reviewed and unremarkable except as noted in history and below PFSH PFSH Medical History Low back pain ?M54.50 - Low back pain, unspecified (ICD-10) Hearing deficit ?H91.90 - Unspecified hearing loss, unspecified ear (ICD-10) High cholesterol ?E78.00 - Pure hypercholesterolemia, unspecified (ICD-10) Surgical History H/O breast biopsy ?Z98.890 - Other specified postprocedural states (ICD-10) Family History Brother Family history of CHF (congestive heart failure) Social History Within the past year, how often did you have a drink containing alcohol: monthly or less Within the past year, how many standard drinks containing alcohol did you have on a typical day: 1 or 2 Within the past year, how often did you have six or more drinks on one occasion: less than monthly Total score: 1 Score interpretation: A score less than 3 is consistent with normal alcohol consumption. 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 Known occupational exposures/hazards: No Highest level of school completed/degree received: high school graduate Do you want help with school or training: No Are you now , , , , never or living with a partner: In a typical week, how many times do you talk on the telephone with family, friends, or neighbors: 3 or more times per week How often do you get together with friends or relatives: 3 or more times per week How often do you attend tenriism or bahai services: 4 or more times per year Do you belong to any clubs or organizations such as tenriism groups unions, fraternal or athletic groups, or school groups: no Total score: 3 Score interpretation: A score of greater than or equal to 2 indicates the lowest level of social isolation. Little interest or pleasure in doing things: several days Feeling down, depressed, or hopeless: several days Feel stressed/tense/nervous/anxious/difficulty sleeping: only a little Due to disability, difficulty making decisions: No Do you think of yourself as: straight/heterosexual Gender Identity: female Meds Home Medications and Allergies Home Medications ?Medication ?Instructions ?Recorded ?Confirmed ?Type acetaminophen 650 mg 650 mg PO .QD 11/14/22 03/31/24 History tablet,extended release (Arthritis Pain Relief (acetaminophen) ER) diclofenac sodium 75 mg 75 mg PO BID #60 tabs 01/11/24 03/31/24 Rx tablet,delayed release zonisamide 25 mg capsule 50 mg PO BID 03/31/24 03/31/24 History diclofenac sodium 75 mg 75 mg PO BID PRN pain #60 tabs 07/13/24 Rx tablet,delayed release Allergies Allergy/AdvReac Type Severity Reaction Status Date / Time No Known Drug Allergies Allergy Verified 03/08/24 08:33 Exam Constitutional Documenting provider has reviewed patient's vital signs: yes Common normals: no apparent distress, oriented x3, healthy appearing, alert and well nourished General appearance: cooperative HENMT Common normals: normocephalic, hearing grossly normal bilaterally and moist oral mucous membranes Head and scalp: normocephalic Eye Common normals: PERRL Pupil: PERRL Neck & C-Spine Common normals: full ROM General: normal visual inspection Chest Common normals: inspection of chest normal Respiratory Common normals: normal respiratory effort, no retractions and no use of accessory muscles Back & Pelvis Lumbar spine/lower back: lumbar ROM normal, pain with ROM and straight leg raise negative bilaterally Sacroiliac joints: SI joints normal Neuro Common normals: oriented x3, CN's II-XII intact bilaterally, moves all extremities, no focal motor deficits, no sensory deficits noted and deep tendon reflexes 2+ bilaterally Sensorium/orientation: alert Motor exam: strength 5/5 throughout and no movement abnormalities noted Psych Common normals: mental status grossly normal, thought process normal, cooperative, affect normal, speech normal and activity/motor behavior normal Speech: normal speech Thought process: normal thought process Results Additional Findings Additional findings: If on a controlled substance or opioids, I have checked an [place]AR[place] report on this patient and there are no aberrancies noted in the prescribing history.??If on a controlled substance or opioid a drug screen was completed and reviewed within the last year, and if there has not been a drug screen completed we ordered one today to monitor higher risk, state monitored pain medication use. As part of providing excellent, safe, comprehensive care, the following was completed at our patient's visit: 1. A medication reconciliation and review to ensure accurate knowledge of current/active medications, including asking our patients to inform us about any [id number] medications or herbal remedies/nutritional supplements/alternative remedies. 2. A review to specifically ensure our patients have had annual screening for screening for depression, screening for tobacco use, and screening for unhealthy alcohol use. For concerning screenings had a discussion with the patient, provided patient education, and recommended follow-up with primary care provider when appropriate. If patient noted with a risk of falling, they received education on strength, gait, and balance training to prevent future risk of falling. Portions of this note may have been carried over from the previous visit and updated as appropriate. Please note this office utilizes paper charting in addition to the electronic medical record. A list of current medications, vitals, and PMH is available there as the clinical staff outside of myself do not have access to [employer] charting during the clinic day operations. As part of providing quality comprehensive care the current medications, vitals, and PMH were reviewed in the paper chart. Assessment and Plan Assessment and Plan (1) Lumbar stenosis with neurogenic claudication: (2) Lumbar radiculopathy: (3) Lumbar spondylosis: Plan continue HEP as tolerated continue current medications f/u 6 months, sooner if needed
== END 2024-07-13 10:59 | disposition home or self-care (01) ==
PROVIDERS: PCP Family Medicine; Visit Provider Nurse Practitioner
DX: M48.062 Spinal stenosis, lumbar region with neurogenic claudication (principal); M54.16 Radiculopathy, lumbar region; M47.816 Spondylosis without myelopathy or radiculopathy, lumbar region
CPT/HCPCS: G0463

== ENCOUNTER 2025-01-26 13:22 | Outpatient (OUT) | payer MEDICARE, SELFPAY ==
--- OUTSIDE RECORDS SUMMARY | 2023-10-19 06:00 | XMS_ITS ---
Author Organization [facility] Address [address] [place] [address] Care Team Providers Care Grades 1 Thru 5 Teacher Name Role Phone Celia Eldridge Unavailable Allergies No Known Allergies REASON FOR VISIT Left shoulder dislocation Social History Tobacco Use: Social History Observation Description Date Details (start date - stop date) Never Smoker NA - NA AUDIT-C (Standard) Question Answer Notes Did you have a drink containing alcohol in the p ast year? No Points 0 Interpretation Negative Tobacco Control (Standard) Question Answer Notes Tobacco use: Nonsmoker Vital Signs Height 5'1 in 10/19/2023 Weight 160 lbs 10/19/2023 BMI 30.23 10/19/2023 Encounters Encounter Location Date Provider Diagnosis [facility] Office [address] [place] [address] [place] [address] 10/19/2023 Celia Eldridge Closed dislocation of shoulder, left, subsequent encounter S43.005D Assessments Encounter Date Diagnosis (ICD Code) Assessment Notes Treatment Notes Treatment Clinical Notes Section Notes 10/19/2023 Closed dislocation of shoulder, left, subsequent encounter (ICD-10 - S43.005D) 10/19/2023 Other Patient has finished physicial therapy with improved range of motion. Her pain is controlled and she has been out of the sling and getting back to her ADL's. She can follow up PRN. Plan Of Treatment Treatment Notes Assessment Notes Other Patient has finished physicial therapy with improved range of motion. Her pain is controlled and she has been out of the sling and getting back to her ADL's. She can follow up PRN. Next Appt Details Follow Up: prn, Reason: Progress Notes * ISAIAS WILKERSON ADOB:[birth year] (89 yo F)Acc No.[id number]:10/19/2023 Patient: ISAIAS LUO Provider: URI Rivera :1935 A ge:87 Y S ex:Female Date:10/19/2023 Address:[facility] [address] [place], [place] [id number] Subjective: * Chief Complaints: * 1 . Left shoulder dislocation. * HPI: G eneral Follow Up Information: Patient presents today for follow-up of her left shoulder dislocation doing well. She states that she has finished physicial therapy and she is having minimal to no pain with movements. * Medical History: M edical History Verified. * Social History: A SHANNON-C (Standard) D id you have a drink containing alcohol in the past year? N o,?Points 0 , I nterpretation N egative. T obacco Control (Standard) T obacco use: N onsmoker. * Medications: N one * Allergies: N .K.D.A. Objective: * Vitals: H t: 5'1 , Wt: 160 lbs, BMI:30.23. * Physical Examination: G eneral: The patient is w ell nourished, pleasant. O n exam patient is in no distress. Patient is distally neurovascularlly intact to the LUE. She has full left shoulder flexion as compared bilaterally. Supraspinatus and IR MMT is still 4/5, but pain free. 5/5 strength ER. Assessment: * Assessment: 1. C losed dislocation of shoulder, left, subsequent encounter - S43.005D (Primary) ? Plan: * Treatment: * Follow Up: p rn Forms: * Images: * Electronic signature of Joby Eldridge PA-C on 01/26/2025 at 01:23 PM EDT Sign off status: Pending * Provider: URI Rivera Date: 0 10/19/2023 Generated for Leticia park/Heidy/Michaelitting on: 0 01/26/2025 01:23 PM EDT History and Physical Notes * HPI (History of Present Illness) Category Sub-Category Detail Notes Category Not es General Follow Up Information Patient presents tod ay for follow-up of her left shoulder dislocation doing well. She states that she has finished physicial therapy and she is having minimal to no pain with movements. Physical Examination Category Sub-Category Detail Notes Section Note s General The patient is well nourished, pleasant On exam patient is in no distress. Patient is distally neurovascularlly intact to the LUE. She has full left shoulder flexion as compared bilaterally. Supraspinatus and IR MMT is still 4/5, but pain free. 5/5 strength ER.
--- OUTSIDE RECORDS SUMMARY | 2025-01-26 13:23 | XMS_ITS | Clinical Summary ---
Author Organization [facility] Healthcare Address [address] [place] [address] Care Team Providers Care Airline Customer Service Agent Name Role Phone Unavailable Primary Care Provider Unavailabl e Social History Tobacco Use Types Packs/Day Years Used Date Smoking Tobacco: Never Assessed Comments Unknown Sex and Gender Information Value Date Recorded Sex Assigned at Not on file Legal Sex Female 6:56 PM EDT Gender Identity Not on file Sexual Orientation Not on file Last Filed Vital Signs Vital Sign Reading Time Taken Comments Blood Pressure - - Pulse - - Temperature - - Respiratory Rate - - Oxygen Saturation - - Inhaled Oxygen Concentration - - Weight 72.6 kg (160 lb) 09/23/2021 12:00 PM EDT Height 157.5 cm (5' 2 ) 09/23/2021 12:00 PM EDT Body Mass Index 29.26 09/23/2021 12:00 PM EDT Plan of Treatment Not on file Insurance [employer]
--- OUTSIDE RECORDS SUMMARY | 2025-01-26 13:23 | XMS_ITS | Clinical Summary ---
Author Organization [facility] Address [address] [place] [address] Phone Care Team Providers Care Potline Monitor Name Role Phone Ignacio Ennis DO Primary Care Provider [phone] Social History Tobacco Use Types Packs/Day Years Used Date Smoking Tobacco: Never Assessed Comments Unknown Sex and Gender Information Value Date Recorded Sex Assigned at Not on file Legal Sex Female 12:01 PM EST Gender Identity Not on file Sexual Orientation Not on file Plan of Treatment Health Maintenance Due Date Last Done Comments Lipid Panel 1935 Medicare Annual Wellness Vis it (AWV) 1935 DTaP/Tdap/Td Vaccines (1 - Tdap) 12/16/1959 Pneumococcal Vaccine (1 of 1 - PCV) 12/16/1987 Zoster Vaccines (1 of 2) 12/16/1987 Bone Density Scan 2002 RSV High Risk: (Elderly (60+ ) or Population) (1 - 1-dose 75+ series) 2012 COVID-19 Vaccine ( - 2023-2 5 season) 2024 Influenza Vaccine (#1) 2025 HIB Vaccines Aged Out No longer eligi ble based on patient's age to complete this topic HPV Vaccines Aged Out No longer eligi ble based on patient's age to complete this topic Hepatitis A Vaccines Aged Out No long er eligible based on patient's age to complete this topic Hepatitis B Vaccines Aged Out No long er eligible based on patient's age to complete this topic IPV Vaccines Aged Out No longer eligi ble based on patient's age to complete this topic Meningococcal Vaccine Aged Out No savannah mayo eligible based on patient's age to complete this topic Rotavirus Vaccines Aged Out No longer eligible based on patient's age to complete this topic Insurance [employer] Care Teams Potline Monitor Relationship Specialty Start Date End Date Ignacio Ennis DO PCP - General 04/09/20
--- OUTSIDE RECORDS SUMMARY | 2025-01-26 13:24 | XMS_ITS | Patient Health Record ---
Author Organization [facility] Address [address] [place] [address] Support Name Relationship Address Phone MONALISA WILKERSON Emergency Contact [address] [facility] [address] [place] [address] ISAIAS WILKERSON Guarantor Unknown [phone] Allergies No Known Allergies Reason For Referral No Information Social History Tobacco Use: Social History Observation Description Date Details (start date - stop date) Never Smoker NA - NA AUDIT-C (Standard) Question Answer Notes Did you have a drink containing alcohol in the p ast year? No Points 0 Interpretation Negative Tobacco Control (Standard) Question Answer Notes Tobacco use: Nonsmoker Problems Problem Type SNOMED Code ICD Code Onset Dates Problem Status W/U Status Risk Notes Problem [id number] Dislocation of left shoulder joint, initial encounter (S43.005A) Active confirmed Problem [id number] Tear of left rotator cuff, unspecified tear extent, unspecified whether traumatic (M75.102) Active confirmed Plan Of Treatment No Information Insurance Providers Payer Name Payer Address Payer Phone Subscriber Number Group Number Insured Name Patient Relationship to Insured Coverage Start Date Coverage End Date [employer] [address] [address] [place] [address] [id number] ISAIAS WILKERSON Self - patient is the insured Medications Administered Medication Instructions Date of Administration Dosage Notes BUPIVACAINE 01/11/2024 2 mL Depo-Medrol 01/11/2024 1 mL lidocaine 01/11/2024 2 mL
--- OUTSIDE RECORDS SUMMARY | 2025-01-26 13:54 | XMS_ITS | CCD ---
Author Organization [facility] CliniSyky Care Team Providers Care Staff Electronic Warfare Officer Name Role Phone Prem Goel Unavailable DO Prem Goel Primary Care Provider DO Prem Goel Attending Provider [phone] LAKSHMIPATHY ., NARENDRANATH Admitting Eda vailable RAYMON, DR AMARO Primary Care Unavailable LAKSHMIPATHY ., NARENDBASSAMATH Attending Dea vailable LAKSHMIPATHY ., NARENDRANATH Consulting Eda vailable [...] vailable Kuns, DO Prem Primary Care Provider [phone] Kuns, DO Prem Attending Provider Kuns, DO Prem Primary Care Provider [phone] Kuns, DO Prem Attending Provider Kuns, DO Prem Primary Care Provider Kuns, DO Prem Attending Provider [phone] Kuns, DO Prem Primary Care Provider [phone] Kuns, DO Prem Attending Provider [phone] Kuns, Prem Attending Unavailable Kuns, Prem Primary [...] sodium 75 mg delayed release oral tablet (8 sources) Nonsteroidal Anti-inflammatory Drug Start: 09-24-2023 take 1 tablet by mouth twice daily Diclofenac Sodium 75 mg tablet,delayed release (DR/EC) Active 75 MG PO Twice daily September 24, 2023 12:00am ezetimibe 10 mg oral tablet (20 sources) Dietary Cholesterol Absorption Inhibitor Start: 04-04-2024 take 1 tablet by mouth once daily Ezetimibe (Zetia) 10 mg tablet Active 10 MG PO Daily April 04, 2024 12:00am Start: 08-03-2023 End: 09-24-2023 take 1 tablet by mouth once daily Ezetimibe 10 mg tablet Discontinued 1 TAB PO Daily August 03, 2023 1:00am September 24, 2023 9:22am FreeTextSi tablet Orally Once a day; Note: Source Status: Continue; Provider: Raymon Casas Start: 02-28-2021 take 1 tablet by daniella th every twenty-four hours Ezetimibe 10 MG 1 tablet Orally Once a day Feb, Active 24 hr mirabegron 50 mg extended release oral tablet (4 sources) beta3-Adrenergic Agonist Start: 04-04-2024 End: 07-08-2024 take 1 tablet by mouth once daily Mirabegron (Myrbetriq) 50 mg tablet extended release 24 hr Active 50 MG PO Daily July 08, 2024 10:54am (5 sources) Active Pumpkin Seed Extract-Soy Germ (Azo Bladder Control) 300 mg capsule (8 sources) Start: 09-24-2023 Pumpkin Seed Extract-Soy Germ (Azo Bladder Control) 300 mg capsule Active CAP PO September 24, 2023 12:00am rosuvastatin calcium 5 mg oral tablet (3 sources) HMG-CoA Reductase Inhibitor Start: 04-04-2024 take 1 tablet by mouth once daily Rosuvastatin (Crestor) 5 mg tablet Active 5 MG PO Daily April 04, 2024 12:00am Triamcinolone (13 sources) Corticosteroid Start: 11-20-2020 Kenalog -40 mg Nov, 1 cc zonisamide 50 mg oral capsule (3 sources) Anti-epileptic Agent Start: 04-04-2024 take 1 capsule by mouth twice daily Zonisamide 50 mg capsule Active 50 MG PO Twice daily April 04, 2024 12:00am Completed/Discontinued Medications Medication Drug Class(es) Dates Sig (Normalized) Sig (Original) acetaminophen 500 mg oral tablet (20 sources) Start: 09-24-2023 End: 09-06-2024 take 2 tablets by mouth every six hours as needed Acetaminophen (Tylenol Extra Strength) 500 mg tablet Discontinued 1000 MG PO Every 6 hours as needed September 24, 2023 12:00am September 06, 2024 1:37pm Start: 09-24-2023 End: 09-24-2023 take 2 tablets by mouth every eight hours as needed Acetaminophen 650 mg tablet extended release Discontinued 1300 MG PO Every 8 hours September 24, 2023 9:20am September 24, 2023 9:23am FreeTextSi tablets as needed Orally every 8 hrs; Note: Source Status: Taking; Provider: Raymon Amaro ( ) Start: 09-24-2023 End: 09-24-2023 take 2 tablets [...] as needed Orally every 8 hrs Active [id number] 200 actuat albuterol 0.09 mg/actuat metered dose inhaler (12 sources) beta2-Adrenergic Agonist Start: 09-24-2023 End: 09-24-2023 take 1 puff(s) by inhalation every four hours as needed Albuterol Sulfate 90 mcg/actuation HFA aerosol inhaler Discontinued 1 PUFF INHALATION Every 4 hours [...] aspirin 81 mg delayed release oral tablet (11 sources) Platelet Aggregation Inhibitor, Nonsteroidal Anti-inflammatory Drug Start: 03-27-2020 End: 09-24-2023 take 1 tablet by mouth once daily Aspirin 81 mg Tablet,Delayed Release (Dr/Ec) Discontinued 81 MG PO Daily March 27, 2020 12:00am September 24, 2023 9:22am atorvastatin 10 mg oral tablet (20 sources) HMG-CoA Reductase Inhibitor Start: 10-26-2017 End: 08-03-2023 take 1 tablet by mouth once daily Atorvastatin (Lipitor) 10 mg Tablet Discontinued 10 MG PO Daily March 27, 2020 12:00am August 03, 2023 5:27pm azithromycin 250 mg oral tablet (7 sources) Macrolide Antimicrobial Start: 10-12-2023 End: 12-29-2023 Azithromycin (Zithromax Z-Amado) 250 mg tablet Discontinued 0 PO .COMPLEX October 12, 2023 12:00am December 29, 2023 10:02am For 250 mg dose pack: take 500 mg today (day 1), then 250 mg for 4 days (days 2-5) PO Zithromax Z-Amado 250 MG as directed Orally Active hydroCHLOROthiazide 25 mg / triamterene 37.5 mg oral capsule (8 sources) Potassium-sparing Diuretic, Thiazide Diuretic Start: 09-24-2023 End: 04-04-2024 take 1 capsule by mouth once daily in the morning Triamterene-Hydrochlorothiazid 37.5-25 mg capsule Discontinued 1 CAP PO Every morning September 24, 2023 12:00am April 04, 2024 8:17am methylPREDNISolone 4 mg oral tablet (10 sources) Corticosteroid Start: 10-12-2023 End: 12-29-2023 take 1 tablet by mouth once Methylprednisolone (Medrol (Amado)) 4 mg tablets,dose pack Discontinued 0 PO per package directions October 12, 2023 12:00am December 29, 2023 10:02am PO PER PKG DIR Start: 08-15-2021 methylPREDNISo lone 4 MG as directed Orally as directed Aug, Active nitrofurantoin, macrocrystals 25 mg / nitrofurantoin, monohydrate 75 mg oral capsule (1 source) Nitrofuran Antibacterial Start: 04-06-2024 End: 07-08-2024 take 1 capsule by mouth twice daily at mealtime Nitrofurantoin Monohyd/M-Cryst (Macrobid) 100 mg capsule Discontinued 100 MG PO Twice daily April 06, 2024 12:00am July 08, 2024 10:15am must administer with a meal/food omeprazole 20 mg delayed release oral capsule (20 sources) Proton Pump Inhibitor Start: 05-20-2017 End: 01-06-2024 take 1 capsule by mouth once daily Omeprazole 20 mg capsule,delayed release(DR/EC) Discontinued 20 MG PO Daily March 27, 2020 12:00am January 06, 2024 8:12am Vit No.655-Lkus-Tjztq (Classic ) 28 mg iron- 800 mcg tablet (8 sources) Start: 09-24-2023 End: 09-24-2023 Vit No.319-Nbil-Mooeu (Classic ) 28 mg iron- 800 mcg [...] 02-28-2021 Resolved: 01-28-2022 Chronic E Codes: Fall (11 sources) Fall; Translations: [Unspecified fall, initial encounter] 09-24-2023 Episodic Esophageal disorders (20 sources) Gastroesophageal reflux disease; Translations: [Gastro-esophageal reflux disease without esophagitis] 01-06-2024 Chronic Genitourinary symptoms and ill-defined conditions (14 sources) Urinary incontinence; Translations: [Unspecified urinary incontinence] Onset: 04-04-2024 09-24-2023 Chronic Genitourinary symptoms and ill-defined conditions (9 sources) Increased frequency of urination; Translations: [Frequency [...] Chronic Other ear and sense organ disorders (19 sources) Hearing loss; Translations: [Unspecified hearing loss, [...] serum enzymes] Episodic Other lower respiratory disease (6 sources) Cough; Translations: [Cough] 12-29-2023 Episodic Other [...] unspecified chronicity] Episodic Other non-traumatic joint disorders (5 sources) Chronic pain of left upper limb; [...] breast] 09-24-2023 Episodic Other upper respiratory infections (6 sources) Sore throat symptom; Translations: [Acute pharyngitis, unspecified] 12-29-2023 Episodic Pneumonia (except that caused by tuberculosis or sexually transmitted disease) (1 source) Bronchopneumonia, unspecified organism Episodic Residual codes; unclassified (16 sources) Insomnia; Translations: [Insomnia, unspecified] Episodic Residual codes; unclassified (8 sources) Edema of lower extremity; Translations: [Localized [...] Cx Nom (U) ORGANISM: Escherichia coli (O:ESCCOL) [place] Count >100,000 Aerobic BLAYNE Charge (NMIC56) ---- [...] RESISTANT TO ALL B-LACTAM DRUGS. PERFORMED BY: [place] [id number] [place] [address] PATHOLOGIST BRUSH MACHINE SETTER BEV TALBERT M.D. Normal [facility] Comment on above: Performed By: #### C UU #### [facility] [address] Alanine aminotransferase [En zymatic activity/volume] in Serum or PlasmaOrdered By: Prem Goel on 03-30-2024 ALT [Catalytic activity/Vol] 14 U/L Normal 7-52 [facility] Comment on above: Performed By: #### L IPID, TSH3, CMP, CBC #### [facility] [address] [place] [address] [place] Albumin [Mass/volume] in Ser um or Plasma by Bromocresol green (BCG) dye binding methoOrdered By: Prem Goel on 03-30-2024 Albumin BCG dye [Mass/Vol] 3.8 g/dL 3.5-5.7 [facility] Alkaline phosphatase [Enzyma tic activity/volume] in Serum or PlasmaOrdered By: Prem Goel on 03-30-2024 ALP [Catalytic activity/Vol] 87 U/L Normal 34-104 [facility] Comment on above: Performed By: #### L IPID, TSH3, CMP, CBC #### [address] Aspartate aminotransferase [ Enzymatic activity/volume] in Serum or PlasmaOrdered By: Prem Goel on 03-30-2024 AST [Catalytic activity/Vol] 15 U/L Normal 13-39 [facility] Comment on above: Performed By: #### L IPID, TSH3, CMP, CBC #### [facility] [address] [place] [address] Automated basophil %Ordered By: Prem Goel on 03-30-2024 Basophils/100 WBC (Bld) 0.8 % Normal . [facility] Comment on above: Performed By: #### L IPID, TSH3, CMP, CBC #### [facility] [address] [place] [address] Automated basophil countOrde red By: Prem Goel on 03-30-2024 Basophils (Bld) [#/Vol] 0.0 10*3/uL Normal 0.0-0.2 [facility] Comment on above: Result Comment: PERF ORMED BY: [place] [address] PATHOLOGIST BRUSH MACHINE SETTER BEV TALBERT M.D. Performed By: #### L IPID, TSH3, CMP, CBC #### [address] Automated blood monocyte cou ntOrdered By: Premsaloni Goel on 03-30-2024 Monocytes (Bld) [#/Vol] 0.5 10*3/uL Normal 0.0-0.8 [facility] Comment on above: Performed By: #### L IPID, TSH3, CMP, CBC #### [address] Automated eosinophil %Ordere d By: Premsaloni Goel on 03-30-2024 Eosinophils/100 WBC (Bld) 2.5 % Normal . [facility] Comment on above: Performed By: #### L IPID, TSH3, CMP, CBC #### [address] Automated eosinophil countOr dered By: Prem Goel on 03-30-2024 Eosinophils (Bld) [#/Vol] 0.1 10*3/uL Normal 0.0-0.45 [facility] Comment on above: Performed By: #### L IPID, TSH3, CMP, CBC #### [address] Automated monocyte %Ordered By: Prem Goel on 03-30-2024 Monocytes/100 WBC (Bld) 9.1 % Normal . [facility] Comment on above: Performed By: #### L IPID, TSH3, CMP, CBC #### [address] Automated neutrophil %Ordere d By: Premsaloni Cabezass on 03-30-2024 Neutrophils/100 WBC (Bld) 52.9 % Normal . [facility] Comment on above: Performed By: #### L IPID, TSH3, CMP, CBC #### [address] Bilirubin.total [Mass/volume ] in Serum or PlasmaOrdered By: Prem Goel on 03-30-2024 Bilirubin [Mass/Vol] 0.4 mg/dL Normal 0.3-1.0 [facility] Comment on above: Performed By: #### L IPID, TSH3, CMP, CBC #### [facility] [address] Calcium [Mass/volume] in Ser um or PlasmaOrdered By: Prem Goel on 03-30-2024 Calcium [Mass/Vol] 9.2 mg/dL Normal 8.6-10.3 [facility] Comment on above: Performed By: #### L IPID, TSH3, CMP, CBC #### [facility] [address] Carbon dioxide, total [Moles /volume] in Serum or PlasmaOrdered By: Prem Goel on 03-30-2024 CO2 [Moles/Vol] 28.9 mmol/L Normal 21.0-31.0 [facility] Comment on above: Performed By: #### L IPID, TSH3, CMP, CBC #### [facility] [address] [place] [address] [place] Chloride [Moles/volume] in S dede or PlasmaOrdered By: Prem Goel on 03-30-2024 Chloride [Moles/Vol] 106 mmol/L Normal 98-107 [facility] Comment on above: Performed By: #### L IPID, TSH3, CMP, CBC #### [facility] [address] [place] [address] [place] Cholesterol [Mass/volume] in Serum or PlasmaOrdered By: Prem Goel on 03-30-2024 Cholesterol [Mass/Vol] 319 mg/dL High 140-200 [facility] Comment on above: Chol less than 200 m g/dl low riskChol 201-239 mg/dl borderline riskChol 240 mg/dl and greater high risk Result Comment: Chol less than 200 mg/dl low risk Chol 201-239 mg/dl borderline risk Chol 240 mg/dl and greater high risk Performed By: #### L IPID, TSH3, CMP, CBC #### [facility] [address] Cholesterol in LDL Calc [Mas s/Vol]Ordered By: Prem Goel on 03-30-2024 Cholesterol in LDL [Mass/Vol] 230 mg/dL High 0-100 [facility] Comment on above: LDL ATP III CLASSIFI CATIONLDL less than 100 mg/dL OptimalLDL 100-129 mg/dL Near or above optimalLDL 130-159 mg/dL Borderline highLDL 160-189 mg/dL HighLDL greater than 189 mg/dL Very high Cholesterol in VLDL Calc [Ma ss/Vol]Ordered By: Prem Goel on 03-30-2024 Cholesterol in VLDL [Mass/Vol] 18 mg/dL [facility] Complete Blood Count Auto Di ffon 03-30-2024 Mean Corpuscular HGB Conc 33.4 g/dL Normal 32.0-35.0 [facility] Comment on above: Performed By: #### L IPID, TSH3, CMP, CBC #### [address] NRBC% 0.1 /100{WBC} Normal 0-0.5 [facility] Comment on above: Performed By: #### L IPID, TSH3, CMP, CBC #### [address] Comprehensive Metabolic Pane [place] 03-30-2024 Albumin [Mass/Vol] 3.8 g/dL Normal 3.5-5.7 [facility] Comment on above: Performed By: #### L IPID, TSH3, CMP, CBC #### [place] [address] [place] GFR/1.73 sq M.predicted MDRD (S/P/Bld) [Vol rate/Area] mL/min/{1.73_m2} Normal [facility] Comment on above: Performed By: #### L IPID, TSH3, CMP, CBC #### [address] Creatinine [Mass/volume] in Serum or PlasmaOrdered By: Prem Goel on 03-30-2024 Creatinine [Mass/Vol] 0.76 mg/dL Normal 0.60-1.20 [facility] Comment on above: Performed By: #### L IPID, TSH3, CMP, CBC #### [facility] [address] Erythrocyte distribution wid th [Ratio] by Automated countOrdered By: Prem Goel on 03-30-2024 Erythrocyte distribution width (RBC) [Ratio] 12.7 % Normal 11.9-15.3 [facility] Comment on above: Performed By: #### L IPID, TSH3, CMP, CBC #### [facility] [address] Erythrocytes [#/volume] in B lood by Automated countOrdered By: Prem Goel on 03-30-2024 RBC (Bld) [#/Vol] 4.43 10*6/uL Normal 3.60-5.00 [facility] Comment on above: Performed By: #### L IPID, TSH3, CMP, CBC #### [address] Glucose [Mass/volume] in Ser um or PlasmaOrdered By: Prem Goel on 03-30-2024 Glucose [Mass/Vol] 89 mg/dL Normal 70-100 [facility] Comment on above: ADA recommended refe rence rangeRandom Glucose Reference Range is dependent on time and content of last meal. Glucose of more than 200 mg/dL in a nonstressed, ambulatory subject supports the diagnosis of Diabetes Mellitus. Result Comment: [place] om Glucose Reference Range is dependent on time and content of last meal. Glucose of more than 200 mg/dL in a nonstressed, ambulatory subject supports the diagnosis of Diabetes Mellitus. ADA recommended reference range Performed By: #### L IPID, TSH3, CMP, CBC #### [facility] [address] Hematocrit [Volume Fraction] of Blood by Automated countOrdered By: Prem Goel on 03-30-2024 Hematocrit (Bld) [Volume fraction] 41.5 % Normal 34.0-46.4 [facility] Comment on above: Performed By: #### L IPID, TSH3, CMP, CBC #### [facility] [address] Hemoglobin [Mass/volume] in BloodOrdered By: Prem Goel on 03-30-2024 Hemoglobin (Bld) [Mass/Vol] 13.9 g/dL Normal 11.8-15.4 [facility] Comment on above: Performed By: #### L IPID, TSH3, CMP, CBC #### [facility] [address] Leukocytes [#/volume] correc guillermina for nucleated erythrocytes in Blood by Automated counOrdered By: Prem Goel on 03-30-2024 WBC corrected for nucl RBC Auto (Bld) [#/Vol] 5.4 10*3/uL 3.8-11.6 [facility] Leukocytes [#/volume] in Blo od by Automated countOrdered By: Prem Goel on 03-30-2024 WBC (Bld) [#/Vol] 5.4 10*3/uL Normal 3.8-11.6 [facility] Comment on above: Performed By: #### L IPID, TSH3, CMP, CBC #### [address] Lipid Panelon 03-30-2024 LDL Cholesterol,Calculated 230 mg/dL High 0-100 [facility] Comment on above: Result Comment: LDL ATP III CLASSIFICATION LDL less than 100 mg/dL Optimal LDL 100-129 mg/dL Near or above optimal LDL 130-159 mg/dL Borderline high LDL 160-189 mg/dL High LDL greater than 189 mg/dL Very high Performed By: #### L IPID, TSH3, CMP, CBC #### [address] Triglyceride w/Reflex 94 mg/dL Normal 0-149 [facility] Comment on above: Result Comment: TRIG ATP III CLASSIFICATION TRIG less than 150 mg/dL Normal TRIG 150-199 mg/dL Borderline high TRIG 200-500 mg/dL High TRIG greater than 500 mg/dL Very high Standard traceable to the Center for Disease Conrtrol and Prevention (CDC) test method. Performed By: #### L IPID, TSH3, CMP, CBC #### [address] VLDL CHOLESTEROL 18 mg/dL Normal [facility] Comment on above: Performed By: #### L IPID, TSH3, CMP, CBC #### [address] Lymphocytes [#/volume] in Bl ood by Automated countOrdered By: Prem Goel on 03-30-2024 Lymphocytes (Bld) [#/Vol] 1.9 10*3/uL Normal 1.00-4.8 [facility] Comment on above: Performed By: #### L IPID, TSH3, CMP, CBC #### [address] Lymphocytes/100 leukocytes i n Blood by Automated countOrdered By: Prem Goel on 03-30-2024 Lymphocytes/100 WBC (Bld) 34.7 % Normal . [facility] Comment on above: Performed By: #### L IPID, TSH3, CMP, CBC #### [address] MCH [Entitic mass] by Automa guillermina countOrdered By: Prem Goel on 03-30-2024 MCH (RBC) [Entitic mass] 31.3 pg Normal 24.7-34.3 [facility] Comment on above: Performed By: #### L IPID, TSH3, CMP, CBC #### [address] MCHC Auto (RBC) [Mass/Vol]Or dered By: Prem Goel on 03-30-2024 MCHC (RBC) [Mass/Vol] 33.4 g/dL 32.0-35.0 [facility] MCV [Entitic volume] by Auto mated countOrdered By: Prem Goel on 03-30-2024 MCV (RBC) [Entitic vol] 93.7 fL Normal 80-100 [facility] Comment on above: Performed By: #### L IPID, TSH3, CMP, CBC #### [facility] [address] Neutrophils [#/volume] in Bl ood by Automated countOrdered By: Prem Goel on 03-30-2024 Neutrophils (Bld) [#/Vol] 2.9 10*3/uL Normal 1.8-7.7 [facility] Comment on above: Performed By: #### L IPID, TSH3, CMP, CBC #### [facility] [address] [place] [address] No Panel InformationOrdered By: Prem Goel on 03-30-2024 Estimated GFR (CKD-EPI) > 60.0 mL/Min [facility] Creatinine Clearance (Chem N/A [facility] Nucleated erythrocytes [Pres ence] in Blood by Automated countOrdered By: Prem Goel on 03-30-2024 Nucleated RBC Auto Ql (Bld) 0.1 /100{WBC} 0-0.5 [facility] Platelet mean volume [Entiti c volume] in Blood by Automated countOrdered By: Prem Goel on 03-30-2024 Platelet mean volume (Bld) [Entitic vol] 10.4 fL Normal 6.3-10.7 [facility] Comment on above: Performed By: #### L IPID, TSH3, CMP, CBC #### [facility] [address] [place] [address] Platelets [#/volume] in Bloo d by Automated countOrdered By: Prem Goel on 03-30-2024 Platelets (Bld) [#/Vol] 199 10*3/uL Normal 150-450 [facility] Comment on above: Performed By: #### L IPID, TSH3, CMP, CBC #### [facility] [address] [place] [address] Potassium [Moles/volume] in Serum or PlasmaOrdered By: Prem Goel on 03-30-2024 Potassium [Moles/Vol] 4.1 mmol/L Normal 3.5-5.1 [facility] Comment on above: Performed By: #### L IPID, TSH3, CMP, CBC #### [facility] [address] Protein [Mass/volume] in Ser um or PlasmaOrdered By: Prem Goel on 03-30-2024 Protein [Mass/Vol] 6.1 g/dL Low 6.4-8.9 [facility] Comment on above: Performed By: #### L IPID, TSH3, CMP, CBC #### [address] Serum globulin measurement b y calculation (mass/volume)Ordered By: Prem Goel on 03-30-2024 Globulin (S) [Mass/Vol] 2.3 g/dL Normal [facility] Comment on above: Performed By: #### L IPID, TSH3, CMP, CBC #### [address] Serum or plasma albumin/glob ulin mass ratioOrdered By: Prem Goel on 03-30-2024 Albumin/Globulin [Mass ratio] 1.7 {ratio} Normal [facility] Comment on above: Performed By: #### L IPID, TSH3, CMP, CBC #### [address] Serum or plasma anion gap de terminationOrdered By: Prem Goel on 03-30-2024 Anion gap [Moles/Vol] 11.2 mmol/L Normal 6.0-15.0 [facility] Comment on above: Performed By: #### L IPID, TSH3, CMP, CBC #### [facility] [address] [place] [address] Serum or plasma high density lipoprotein (HDL) cholesterol measurementOrdered By: Prem Goel on 03-30-2024 Cholesterol in HDL [Mass/Vol] 70 mg/dL Normal [facility] Comment on above: HDL CHOL ATP-III CLA SSIFICATION Cardiovascular RiskHDL > or equal to 60 mg/dL LOWHDL < 40 mg/dL HIGH Result Comment: HDL CHOL ATP-III CLASSIFICATION Cardiovascular Risk HDL > or equal to 60 mg/dL LOW HDL < 40 mg/dL HIGH Performed By: #### L IPID, TSH3, CMP, CBC #### [facility] [address] [place] [address] Serum or plasma total choles terol/high density lipoprotein (HDL) cholesterol mass ratOrdered By: Prem Goel on 03-30-2024 Cholesterol.total/Araceli sterol in HDL [Mass ratio] 4.6 {ratio} Normal <5.0 [facility] Comment on above: Performed By: #### L IPID, TSH3, CMP, CBC #### [address] Sodium [Moles/volume] in Ser um or PlasmaOrdered By: Prem Goel on 03-30-2024 Sodium [Moles/Vol] 142 mmol/L Normal 136-145 [facility] Comment on above: Performed By: #### L IPID, TSH3, CMP, CBC #### [address] Thyrotropin [Units/volume] i n Serum or PlasmaOrdered By: Prem Goel on 03-30-2024 TSH Qn 2.68 m[IU]/L Normal 0.45-5.33 [facility] Comment on above: Result Comment: PERF ORMED BY: [place] [address] PATHOLOGIST BRUSH MACHINE SETTER BEV TALBERT M.D. Performed By: #### C MP, CBC, TSH3, LIPID #### [address] Triglyceride [Mass/volume] i n Serum or PlasmaOrdered By: Prem Goel on 03-30-2024 Triglyceride [Mass/Vol] 94 mg/dL 0-[address] [facility] Comment on above: TRIG ATP III CLASSIF ICATIONTRIG less than 150 mg/dL NormalTRIG 150-199 mg/dL Borderline highTRIG 200-500 mg/dL High TRIG greater than 500 mg/dL Very highStandard traceable to the Center for Disease Conrtrol and Prevention (CDC) test method. Urea nitrogen [Mass/volume] in Serum or PlasmaOrdered By: Prem Goel on 03-30-2024 Urea nitrogen [Mass/Vol] 21 mg/dL Normal 7-25 [facility] Comment on above: Performed By: #### L IPID, TSH3, CMP, CBC #### [facility] [address] Influenza virus B Ag [Presen ce] in Upper respiratory specimen by Rapid immunoassayon 10-12-2023 FLUBV Ag IA.rapid Ql (Nph) Negative [facility] No Panel Informationon 10-11 Influenza Type A (Rapid) Negative [facility] POC SARS CoV-2 Antigen Negative [facility] No Panel InformationOrdered By: Prem Goel on 10-12-2023 Quick Strep (POC) [facility] RSV (POC) [facility] echo transthoracicon [facility] echo transthoracic [facility] [place] [address] [place], [place] [id number] Echocardiogram Signed Patient: Mary Wilkerson MR#: [id number] 119 : 1935 Acct:[id number] Age/Sex: 87 / F ADM Date: 10/06/23 Loc: Room: Type: [facility] Attending Dr: Prem Goel DO Ordering Provider: Prem Goel DO Date of Service: 10/06/23 [facility] echo transthoracic: R60.0 - Localized edema Copies to: DO Bruce Solares MD, [facility] BSA: 1.7 m2 BP: 147/85 mmHg HR: [...] mmHg RAP systole: 5.0 mmHg Transcribed By: EBER Performed At: 10/06/23 0852 Signed By: Bruce Caballero MD, [facility] 10/06/23 1757 Normal [facility] A1C with Estimated Average G bassam 09-18-2023 Glucose [Mass/Vol] 117 mg/dL Normal [facility] Comment on above: Order Comment: Reaso n for Exam Hyperglycemia Result Comment: PERF ORMED BY: [place] [address] PATHOLOGIST [employer]ACH[employer]TER BEV TALBERT M.D. Performed By: #### A 1C WT eA #### [address] Alanine aminotransferase [En zymatic activity/volume] in Serum or PlasmaOrdered By: Prem Goel on 09-18-2023 ALT [Catalytic activity/Vol] 15 U/L Normal 7-52 [facility] Comment on above: Order Comment: Reaso n for Exam Hyperlipidemia Performed By: #### C MP, CBC, TSH3, LIPID #### [facility] [address] [place] [address] [place] Albumin [Mass/volume] in Ser um or Plasma by Bromocresol green (BCG) dye binding methoOrdered By: Prem Goel on 09-18-2023 Albumin BCG dye [Mass/Vol] 4.0 g/dL 3.5-5.7 [facility] Alkaline phosphatase [Enzyma tic activity/volume] in Serum or PlasmaOrdered By: Prem Goel on 09-18-2023 ALP [Catalytic activity/Vol] 87 U/L Normal 34-104 [facility] Comment on above: Order Comment: Reaso n for Exam Hyperlipidemia Performed By: #### C MP, CBC, TSH3, LIPID #### [facility] [address] [place] [address] [place] Aspartate aminotransferase [ Enzymatic activity/volume] in Serum or PlasmaOrdered By: Prem Goel on 09-18-2023 AST [Catalytic activity/Vol] 16 U/L Normal 13-39 [facility] Comment on above: Order Comment: Reaso n for Exam Hyperlipidemia Performed By: #### C MP, CBC, TSH3, LIPID #### [facility] [address] Automated basophil %Ordered By: Prem Goel on 09-18-2023 Basophils/100 WBC (Bld) 0.5 % Normal . [facility] Comment on above: Performed By: #### C MP, CBC, TSH3, LIPID #### [facility] [address] [place] [address] Automated basophil countOrde red By: Prem Goel on 09-18-2023 Basophils (Bld) [#/Vol] 0.0 10*3/uL Normal 0.0-0.2 [facility] Comment on above: Result Comment: PERF ORMED BY: [place] [address] PATHOLOGIST [employer] MACHINE SETTER BEV TALBERT M.D. Performed By: #### C MP, CBC, TSH3, LIPID #### [facility] [address] [place] [address] Automated blood monocyte cou ntOrdered By: Prem Goel on 09-18-2023 Monocytes (Bld) [#/Vol] 0.4 10*3/uL Normal 0.0-0.8 [facility] Comment on above: Performed By: #### C MP, CBC, TSH3, LIPID #### [facility] [address] [place] [address] Automated eosinophil %Ordere d By: Prem Goel on 09-18-2023 Eosinophils/100 WBC (Bld) 2.2 % Normal . [facility] Comment on above: Performed By: #### C MP, CBC, TSH3, LIPID #### [facility] [address] [place] [address] Automated eosinophil countOr dered By: Prem Goel on 09-18-2023 Eosinophils (Bld) [#/Vol] 0.1 10*3/uL Normal 0.0-0.45 [facility] Comment on above: Performed By: #### C MP, CBC, TSH3, LIPID #### [facility] [address] Automated monocyte %Ordered By: Prem Goel on 09-18-2023 Monocytes/100 WBC (Bld) 8.0 % Normal . [facility] Comment on above: Performed By: #### C MP, CBC, TSH3, LIPID #### [facility] [address] Automated neutrophil %Ordere d By: Prem Goel on 09-18-2023 Neutrophils/100 WBC (Bld) 36.1 % Normal . [facility] Comment on above: Performed By: #### C MP, CBC, TSH3, LIPID #### [facility] [address] [place] [address] Bilirubin.total [Mass/volume ] in Serum or PlasmaOrdered By: Prem Goel on 09-18-2023 Bilirubin [Mass/Vol] 0.6 mg/dL Normal 0.3-1.0 [facility] Comment on above: Order Comment: Reaso n for Exam Hyperlipidemia Performed By: #### C MP, CBC, TSH3, LIPID #### [facility] [address] [place] [address] Calcium [Mass/volume] in Ser um or PlasmaOrdered By: Prem Goel on 09-18-2023 Calcium [Mass/Vol] 9.5 mg/dL Normal 8.6-10.3 [facility] Comment on above: Order Comment: Reaso n for Exam Hyperlipidemia Performed By: #### C MP, CBC, TSH3, LIPID #### [facility] [address] [place] [address] Carbon dioxide, total [Moles /volume] in Serum or PlasmaOrdered By: Prem Goel on 09-18-2023 CO2 [Moles/Vol] 28.9 mmol/L Normal 21.0-31.0 [facility] Comment on above: Order Comment: Reaso n for Exam Hyperlipidemia Performed By: #### C MP, CBC, TSH3, LIPID #### [facility] [address] [place] [address] [place] Chloride [Moles/volume] in S dede or PlasmaOrdered By: Prem Goel on 09-18-2023 Chloride [Moles/Vol] 104 mmol/L Normal 98-107 [facility] Comment on above: Order Comment: Reaso n for Exam Hyperlipidemia Performed By: #### C MP, CBC, TSH3, LIPID #### [facility] [address] [place] [address] [place] Cholesterol [Mass/volume] in Serum or PlasmaOrdered By: Prem Goel on 09-18-2023 Cholesterol [Mass/Vol] 289 mg/dL High 140-200 [facility] Comment on above: Chol less than 200 m g/dl low riskChol 201-239 mg/dl borderline riskChol 240 mg/dl and greater high risk Order Comment: Reaso n for Exam Hyperlipidemia Result Comment: Chol less than 200 mg/dl low risk Chol 201-239 mg/dl borderline risk Chol 240 mg/dl and greater high risk Performed By: #### C MP, CBC, TSH3, LIPID #### [facility] [address] [place] [id number] [place] Cholesterol in LDL Calc [Mas s/Vol]Ordered By: Prem Goel on 09-18-2023 Cholesterol in LDL [Mass/Vol] 197 mg/dL 0-100 [facility] Comment on above: LDL ATP III CLASSIFI CATIONLDL less than 100 mg/dL OptimalLDL 100-129 mg/dL Near or above optimalLDL 130-159 mg/dL Borderline highLDL 160-189 mg/dL HighLDL greater than 189 mg/dL Very high Cholesterol in VLDL Calc [Ma ss/Vol]Ordered By: Prem Goel on 09-18-2023 Cholesterol in VLDL [Mass/Vol] 23 mg/dL [facility] Complete Blood Count Auto Di ffon 09-18-2023 Mean Corpuscular HGB Conc 31.9 g/dL Low 32.0-35.0 [facility] Comment on above: Performed By: #### C MP, CBC, TSH3, LIPID #### [facility] [address] [place] [address] [place] NRBC% 0.2 /100{WBC} Normal 0-0.5 [facility] Comment on above: Performed By: #### C MP, CBC, TSH3, LIPID #### [address] Comprehensive Metabolic Pane [place] 09-18-2023 Albumin [Mass/Vol] 4.0 g/dL Normal 3.5-5.7 [facility] Comment on above: Order Comment: Reaso n for Exam Hyperlipidemia Performed By: #### C MP, CBC, TSH3, LIPID #### [address] GFR/1.73 sq M.predicted MDRD (S/P/Bld) [Vol rate/Area] mL/min/{1.73_m2} Normal [facility] Comment on above: Order Comment: Reaso n for Exam Hyperlipidemia Performed By: #### C MP, CBC, TSH3, LIPID #### [address] Creatinine [Mass/volume] in Serum or PlasmaOrdered By: Prem Goel on 09-18-2023 Creatinine [Mass/Vol] 0.79 mg/dL Normal 0.60-1.20 [facility] Comment on above: Order Comment: Reaso n for Exam Hyperlipidemia Performed By: #### C MP, CBC, TSH3, LIPID #### [address] Erythrocyte distribution wid th [Ratio] by Automated countOrdered By: Prem Goel on 09-18-2023 Erythrocyte distribution width (RBC) [Ratio] 13.9 % Normal 11.9-15.3 [facility] Comment on above: Performed By: #### C MP, CBC, TSH3, LIPID #### [place] [address] [place] Erythrocytes [#/volume] in B lood by Automated countOrdered By: Prem Goel on 09-18-2023 RBC (Bld) [#/Vol] 4.87 10*6/uL Normal 3.60-5.00 [facility] Comment on above: Performed By: #### C MP, CBC, TSH3, LIPID #### [facility] [address] [place] [id number] [place] Glucose [Mass/volume] in Ser um or PlasmaOrdered By: Prem Goel on 09-18-2023 Glucose [Mass/Vol] 90 mg/dL Normal 70-100 [facility] Comment on above: ADA recommended refe rence rangeRandom Glucose Reference Range is dependent on time and content of last meal. Glucose of more than 200 mg/dL in a nonstressed, ambulatory subject supports the diagnosis of Diabetes Mellitus. Order Comment: Reaso n for Exam Hyperlipidemia Result Comment: [place] Glucose Reference Range is dependent on time and content of last meal. Glucose of more than 200 mg/dL in a nonstressed, ambulatory subject supports the diagnosis of Diabetes Mellitus. ADA recommended reference range Performed By: #### C MP, CBC, TSH3, LIPID #### [facility] [address] Glucose mean value [Mass/vol ume] in Blood Estimated from glycated hemoglobinOrdered By: Prem Goel on 09-18-2023 Average glucose Estimated from glycated hemoglobin (Bld) [Mass/Vol] 117 mg/dL [facility] Hematocrit [Volume Fraction] of Blood by Automated countOrdered By: Prem Goel on 09-18-2023 Hematocrit (Bld) [Volume fraction] 44.9 % Normal 34.0-46.4 [facility] Comment on above: Performed By: #### C MP, CBC, TSH3, LIPID #### [facility] [address] [place] [id number] [facility] Hemoglobin A1c percentageOrd ered By: Prem Goel on 09-18-2023 HbA1c (Bld) [Mass fraction] 5.7 % High 4.3-5.6 [facility] Comment on above: Increased risk for d iabetes: 5.7 - 6.4diabetes: >6.4glycemic control for adults with diabetes: <7.0 Order Comment: Reaso n for Exam Hyperglycemia Result Comment: Incr eased risk for diabetes: 5.7 - 6.4 diabetes: >6.4 glycemic control for adults with diabetes: <7.0 Performed By: #### A 1C WTH eA #### [facility] [address] Hemoglobin [Mass/volume] in BloodOrdered By: Prme Goel on 09-18-2023 Hemoglobin (Bld) [Mass/Vol] 14.3 g/dL Normal 11.8-15.4 [facility] Comment on above: Performed By: #### C MP, CBC, TSH3, LIPID #### [facility] [address] Leukocytes [#/volume] correc guillermina for nucleated erythrocytes in Blood by Automated counOrdered By: Prem Goel on 09-18-2023 WBC corrected for nucl RBC Auto (Bld) [#/Vol] 5.4 10*3/uL 3.8-11.6 [facility] Leukocytes [#/volume] in Blo od by Automated countOrdered By: Prem Goel on 09-18-2023 WBC (Bld) [#/Vol] 5.4 10*3/uL Normal 3.8-11.6 [facility] Comment on above: Performed By: #### C MP, CBC, TSH3, LIPID #### [address] Lipid Panelon 09-18-2023 LDL Cholesterol,Calculated 197 mg/dL High 0-100 [facility] Comment on above: Order Comment: Reaso n for Exam Hyperlipidemia Result Comment: LDL ATP III CLASSIFICATION LDL less than 100 mg/dL Optimal LDL 100-129 mg/dL Near or above optimal LDL 130-159 mg/dL Borderline high LDL 160-189 mg/dL High LDL greater than 189 mg/dL Very high Performed By: #### C MP, CBC, TSH3, LIPID #### [address] Triglyceride w/Reflex 116 mg/dL Normal 0-149 [facility] Comment on above: Order Comment: Reaso n for Exam Hyperlipidemia Result Comment: TRIG ATP III CLASSIFICATION TRIG less than 150 mg/dL Normal TRIG 150-199 mg/dL Borderline high TRIG 200-500 mg/dL High TRIG greater than 500 mg/dL Very high Standard traceable to the Center for Disease Conrtrol and Prevention (CDC) test method. Performed By: #### C MP, CBC, TSH3, LIPID #### [address] VLDL CHOLESTEROL 23 mg/dL Normal [facility] Comment on above: Order Comment: Reaso n for Exam Hyperlipidemia Performed By: #### C MP, CBC, TSH3, LIPID #### [address] Lymphocytes [#/volume] in Bl ood by Automated countOrdered By: Prem Goel on 09-18-2023 Lymphocytes (Bld) [#/Vol] 2.9 10*3/uL Normal 1.00-4.8 [facility] Comment on above: Performed By: #### C MP, CBC, TSH3, LIPID #### [address] Lymphocytes/100 leukocytes i n Blood by Automated countOrdered By: Prem Goel on 09-18-2023 Lymphocytes/100 WBC (Bld) 53.2 % Normal . [facility] Comment on above: Performed By: #### C MP, CBC, TSH3, LIPID #### [address] MCH [Entitic mass] by Automa guillermina countOrdered By: Prem Goel on 09-18-2023 MCH (RBC) [Entitic mass] 29.4 pg Normal 24.7-34.3 [facility] Comment on above: Performed By: #### C MP, CBC, TSH3, LIPID #### [address] MCHC Auto (RBC) [Mass/Vol]Or dered By: Prem Goel on 09-18-2023 MCHC (RBC) [Mass/Vol] 31.9 g/dL 32.0-35.0 [facility] MCV [Entitic volume] by Auto mated countOrdered By: Prem Goel on 09-18-2023 MCV (RBC) [Entitic vol] 92.3 fL Normal 80-100 [facility] Comment on above: Performed By: #### C MP, CBC, TSH3, LIPID #### [facility] [address] Neutrophils [#/volume] in Bl ood by Automated countOrdered By: Prem Goel on 09-18-2023 Neutrophils (Bld) [#/Vol] 1.9 10*3/uL Normal 1.8-7.7 [facility] Comment on above: Performed By: #### C MP, CBC, TSH3, LIPID #### [facility] [address] No Panel InformationOrdered By: Prem Goel on 09-18-2023 Estimated GFR (CKD-EPI) > 60.0 mL/Min [facility] Creatinine Clearance (Chem N/A [facility] Nucleated erythrocytes [Pres ence] in Blood by Automated countOrdered By: Prem Goel on 09-18-2023 Nucleated RBC Auto Ql (Bld) 0.2 /100{WBC} 0-0.5 [facility] Platelet mean volume [Entiti c volume] in Blood by Automated countOrdered By: Prem Goel on 09-18-2023 Platelet mean volume (Bld) [Entitic vol] 10.4 fL Normal 6.3-10.7 [facility] Comment on above: Performed By: #### C MP, CBC, TSH3, LIPID #### [facility] [address] Platelets [#/volume] in Bloo d by Automated countOrdered By: Prem Goel on 09-18-2023 Platelets (Bld) [#/Vol] 230 10*3/uL Normal 150-450 [facility] Comment on above: Performed By: #### C MP, CBC, TSH3, LIPID #### [facility] [address] Potassium [Moles/volume] in Serum or PlasmaOrdered By: Prem Goel on 09-18-2023 Potassium [Moles/Vol] 4.2 mmol/L Normal 3.5-5.1 [facility] Comment on above: Order Comment: Reaso n for Exam Hyperlipidemia Performed By: #### C MP, CBC, TSH3, LIPID #### [facility] [address] Protein [Mass/volume] in Ser um or PlasmaOrdered By: Prem Goel on 09-18-2023 Protein [Mass/Vol] 6.4 g/dL Normal 6.4-8.9 [facility] Comment on above: Order Comment: Reaso n for Exam Hyperlipidemia Performed By: #### C MP, CBC, TSH3, LIPID #### [facility] [address] Serum globulin measurement b y calculation (mass/volume)Ordered By: Prem Goel on 09-18-2023 Globulin (S) [Mass/Vol] 2.4 g/dL Normal [facility] Comment on above: Order Comment: Reaso n for Exam Hyperlipidemia Performed By: #### C MP, CBC, TSH3, LIPID #### [facility] [address] [place] [address] Serum or plasma albumin/glob ulin mass ratioOrdered By: Prem Goel on 09-18-2023 Albumin/Globulin [Mass ratio] 1.7 {ratio} Normal [facility] Comment on above: Order Comment: Reaso n for Exam Hyperlipidemia Performed By: #### C MP, CBC, TSH3, LIPID #### [facility] [address] Serum or plasma anion gap de terminationOrdered By: Prem Goel on 09-18-2023 Anion gap [Moles/Vol] 12.3 mmol/L Normal 6.0-15.0 [facility] Comment on above: Order Comment: Reaso n for Exam Hyperlipidemia Performed By: #### C MP, CBC, TSH3, LIPID #### [facility] [address] Serum or plasma high density lipoprotein (HDL) cholesterol measurementOrdered By: Prem Goel on 09-18-2023 Cholesterol in HDL [Mass/Vol] 69 mg/dL Normal 23-92 [facility] Comment on above: HDL CHOL ATP-III CLA SSIFICATION Cardiovascular RiskHDL > or equal to 60 mg/dL LOWHDL < 40 mg/dL HIGH Order Comment: Reaso n for Exam Hyperlipidemia Result Comment: HDL CHOL ATP-III CLASSIFICATION Cardiovascular Risk HDL > or equal to 60 mg/dL LOW HDL < 40 mg/dL HIGH Performed By: #### C MP, CBC, TSH3, LIPID #### [facility] [address] Serum or plasma total choles terol/high density lipoprotein (HDL) cholesterol mass ratOrdered By: Prem Goel on 09-18-2023 Cholesterol.total/Araceli sterol in HDL [Mass ratio] 4.2 {ratio} Normal <5.0 [facility] Comment on above: Order Comment: Reaso n for Exam Hyperlipidemia Performed By: #### C MP, CBC, TSH3, LIPID #### [facility] [address] [place] [address] Sodium [Moles/volume] in Ser um or PlasmaOrdered By: Prem Goel on 09-18-2023 Sodium [Moles/Vol] 141 mmol/L Normal 136-145 [facility] Comment on above: Order Comment: Reaso n for Exam Hyperlipidemia Performed By: #### C MP, CBC, TSH3, LIPID #### [facility] [address] [place] [address] Thyrotropin [Units/volume] i n Serum or PlasmaOrdered By: Prem Goel on 09-18-2023 TSH Qn 2.60 m[IU]/L Normal 0.45-5.33 [facility] Comment on above: Order Comment: Reaso n for Exam Hyperlipidemia Result Comment: PERF ORMED BY: [place] [address] PATHOLOGIST [employer] MACHINE SETTER BEV TALBERT M.D. Performed By: #### C MP, CBC, TSH3, LIPID #### [facility] [address] [place] [address] Triglyceride [Mass/volume] i n Serum or PlasmaOrdered [...] Urea nitrogen [Mass/Vol] 17 mg/dL Normal 7-25 [facility] Comment on above: Order Comment: Reaso n for Exam Hyperlipidemia Performed By: #### C MP, CBC, TSH3, LIPID #### [facility] [address] Basophils Auto (Bld) [#/Vol] on 08-07-2023 Basophils (Bld) [#/Vol] 0.0 10 3/uL 0.0-0.1 [facility] Basophils/100 WBC Auto (Bld) on 08-07-2023 Basophils/100 WBC (Bld) 0.5 % 0.2-2.0 F [facility] Eosinophils/100 WBC Auto (Bl d)on 08-07-2023 Eosinophils/100 WBC (Bld) 1.1 % 0.9-7.0 [facility] Erythrocyte distribution wid th Auto (RBC) [Ratio]on 08-07-2023 Erythrocyte distribution width (RBC) [Ratio] 12.6 % 11.0-15.0 [facility] Estimated glomerular filtrat ion rate (GFR) non- Americanon 08-07-2023 GFR/1.73 sq M.predicted among non-blacks MDRD (S/P/Bld) [Vol rate/Area] mL/min/{1.73_m2} >=60 [facility] Globulin Calc (S) [Mass/Vol] on 08-07-2023 Globulin (S) [Mass/Vol] 3.8 g/dL F [facility] Hematocrit Auto (Bld) [Volum e fraction]on 08-07-2023 Hematocrit (Bld) [Volume fraction] 48.4 % 36.0-48.0 [facility] Hemoglobin [Mass/volume] in Bloodon 08-07-2023 Hemoglobin (Bld) [Mass/Vol] 15.4 g/dL 12.0-16.0 [facility] Laboratory - Chemistry and C hemistry - challengeon 08-07-2023 Albumin [Mass/Vol] 3.4 g/dL 3.4-5.0 [facility] ALP [Catalytic activity/Vol] 118 U/L 46-116 [facility] ALT [Catalytic activity/Vol] 23 U/L 14-59 [facility] AST [Catalytic activity/Vol] 20 U/L 15-37 [facility] Bilirubin [Mass/Vol] 0.4 mg/dL 0.2-1.0 [facility] Calcium [Mass/Vol] 9.4 mg/dL 8.5-10.1 [facility] Chloride [Moles/Vol] 106 mmol/L 98-107 [facility] CO2 [Moles/Vol] 28.0 mmol/L 21.0-32.0 [facility] Creatinine [Mass/Vol] 0.80 mg/dL 0.55-1.02 [facility] GFR/1.73 sq M.predicted MDRD (S/P/Bld) [Vol rate/Area] mL/min/{1.73_m2} >=60 [facility] Glucose [Mass/Vol] 121 mg/dL 74-106 [facility] Potassium [Moles/Vol] 3.9 mmol/L 3.5-5.1 [facility] Protein [Mass/Vol] 7.2 g/dL 6.4-8.2 [facility] Sodium [Moles/Vol] 142 mmol/L 136-145 [facility] Urea nitrogen [Mass/Vol] 20.0 mg/dL 7.0-18.0 [facility] Urea nitrogen/Creatinine [Mass ratio] 25.0 mg/mg [facility] Laboratory - Hematology and Cell countson 08-07-2023 Immature granulocytes/100 WBC (Bld) 0.3 % 0.0-0.5 [facility] Leukocytes [#/volume] correc guillermina for nucleated erythrocytes in Blood by Automated counon 08-07-2023 WBC corrected for nucl RBC Auto (Bld) [#/Vol] 7.5 10 3/uL 4.0-11.0 [facility] Lymphocytes Auto (Bld) [#/Vo l]on 08-07-2023 Lymphocytes (Bld) [#/Vol] 3.4 10 3/uL 1.2-3.8 [facility] Lymphocytes/100 WBC Auto (Bl d)on 08-07-2023 Lymphocytes/100 WBC (Bld) 45.6 % 20.5-60.0 [facility] MCH Auto (RBC) [Entitic mass ]on 08-07-2023 MCH (RBC) [Entitic mass] 29.7 pg 26.7-34.0 [facility] MCHC Auto (RBC) [Mass/Vol]on 08-07-2023 MCHC (RBC) [Mass/Vol] 31.8 g/dL 29.9-35.2 [facility] MCV Auto (RBC) [Entitic vol] on 08-07-2023 MCV (RBC) [Entitic vol] 93.3 fL 81.0-99.0 F [facility] Monocytes Auto (Bld) [#/Vol] on 08-07-2023 Monocytes (Bld) [#/Vol] 0.7 10 3/uL 0.3-0.8 [facility] Monocytes/100 WBC Auto (Bld) on 08-07-2023 Monocytes/100 WBC (Bld) 8.6 % 1.7-12.0 [facility] Neutrophils Auto (Bld) [#/Vo l]on 08-07-2023 Neutrophils (Bld) [#/Vol] 3.3 10 3/uL 1.4-6.5 [facility] Neutrophils/100 WBC Auto (Bl d)on 08-07-2023 Neutrophils/100 WBC (Bld) 43.9 % 43.0-75.0 [facility] No Panel Informationon 08-06 Eosinophils # (Auto) 0.1 10 3/uL 0.0-0.7 [facility] Immature Granulocyte # (Auto) 0.02 10 3/uL 0.00-0.03 [facility] Platelet mean volume Auto (B ld) [Entitic vol]on 08-07-2023 Platelet mean volume (Bld) [Entitic vol] 12.5 fL 9.5-13.5 [facility] Platelets Auto (Bld) [#/Vol] on 08-07-2023 Platelets (Bld) [#/Vol] 238 10 3/uL 150-450 [facility] RBC Auto (Bld) [#/Vol]on RBC (Bld) [#/Vol] 5.19 10 6/uL 4.20-5.40 [facility] Serum or plasma albumin/glob ulin mass ratioon 08-07-2023 Albumin/Globulin [Mass ratio] 0.9 {ratio} [facility] Serum or plasma anion gap de terminationon 08-07-2023 Anion gap [Moles/Vol] 11.9 mmol[facility] Alanine aminotransferase [En zymatic activity/volume] in Serum or PlasmaOrdered By: Prem Goel on 03-12-2023 ALT [Catalytic activity/Vol] 11 U/L 7-52 [facility] Albumin [Mass/volume] in Ser um or Plasma by Bromocresol green (BCG) dye binding methoOrdered By: Prem Goel on 03-12-2023 Albumin BCG dye [Mass/Vol] 3.9 g/dL 3.5-5.7 [facility] Alkaline phosphatase [Enzyma tic activity/volume] in Serum or PlasmaOrdered By: Prem Goel on 03-12-2023 ALP [Catalytic activity/Vol] 89 U/L 34-104 [facility] Aspartate aminotransferase [ Enzymatic activity/volume] in Serum or PlasmaOrdered By: Prem Goel on 03-12-2023 AST [Catalytic activity/Vol] 15 U/L 13-39 [facility] Basophils Auto (Bld) [#/Vol] Ordered By: Prem Goel on 03-12-2023 Basophils (Bld) [#/Vol] 0.0 10*3/uL 0.0-0.2 [facility] Basophils/100 WBC Auto (Bld) Ordered By: Prem Goel on 03-12-2023 Basophils/100 WBC (Bld) 0.7 % . F [facility] Bilirubin.total [Mass/volume ] in Serum or PlasmaOrdered By: Prem Goel on 03-12-2023 Bilirubin [Mass/Vol] 0.6 mg/dL 0.3-1.0 [facility] Calcium [Mass/volume] in Ser um or PlasmaOrdered By: Prem Goel on 03-12-2023 Calcium [Mass/Vol] 9.4 mg/dL 8.6-10.3 [facility] Carbon dioxide, total [Moles /volume] in Serum or PlasmaOrdered By: Prem Goel on 03-12-2023 CO2 [Moles/Vol] 28.2 mmol/L 21.0-31.0 [facility] Chloride [Moles/volume] in S dede or PlasmaOrdered By: Prem Goel on 03-12-2023 Chloride [Moles/Vol] 107 mmol/L 98-107 [facility] Cholesterol [Mass/volume] in Serum or PlasmaOrdered By: Prem Goel on 03-12-2023 Cholesterol [Mass/Vol] 228 mg/dL 140-200 [facility] Comment on above: Chol less than 200 m g/dl low riskChol 201-239 mg/dl borderline riskChol 240 mg/dl and greater high risk Cholesterol in LDL Calc [Mas s/Vol]Ordered By: Prem Goel on 03-12-2023 Cholesterol in LDL [Mass/Vol] 146 mg/dL 0-100 [facility] Comment on above: LDL ATP III CLASSIFI CATIONLDL less than 100 mg/dL OptimalLDL 100-129 mg/dL Near or above optimalLDL 130-159 mg/dL Borderline highLDL 160-189 mg/dL HighLDL greater than 189 mg/dL Very high Cholesterol in VLDL Calc [Ma ss/Vol]Ordered By: Prem Goel on 03-12-2023 Cholesterol in VLDL [Mass/Vol] 15 mg/dL [facility] Creatinine [Mass/volume] in Serum or PlasmaOrdered By: Prem Goel on 03-12-2023 Creatinine [Mass/Vol] 0.77 mg/dL 0.60-1.20 [facility] Eosinophils Auto (Bld) [#/Vo l]Ordered By: Prem Goel on 03-12-2023 Eosinophils (Bld) [#/Vol] 0.1 10*3/uL 0.0-0.45 [facility] Eosinophils/100 WBC Auto (Bl d)Ordered By: Prem Goel on 03-12-2023 Eosinophils/100 WBC (Bld) 2.3 % . [facility] Erythrocyte distribution wid th Auto (RBC) [Ratio]Ordered By: Prem Goel on 03-12-2023 Erythrocyte distribution width (RBC) [Ratio] 12.9 % 11.9-15.3 [facility] Globulin Calc (S) [Mass/Vol] Ordered By: Prem Goel on 03-12-2023 Globulin (S) [Mass/Vol] 2.2 g/dL F [facility] Glucose [Mass/volume] in Ser um or PlasmaOrdered By: Prem Goel on 03-12-2023 Glucose [Mass/Vol] 96 mg/dL 70-100 [facility] Comment on above: ADA recommended refe rence rangeRandom Glucose Reference Range is dependent on time and content of last meal. Glucose of more than 200 mg/dL in a nonstressed, ambulatory subject supports the diagnosis of Diabetes Mellitus. Hematocrit Auto (Bld) [Volum e fraction]Ordered By: Prem Goel on 03-12-2023 Hematocrit (Bld) [Volume fraction] 45.2 % 34.0-46.4 [facility] Hemoglobin [Mass/volume] in BloodOrdered By: Prem Goel on 03-12-2023 Hemoglobin (Bld) [Mass/Vol] 14.9 g/dL 11.8-15.4 [facility] Leukocytes [#/volume] correc guillermina for nucleated erythrocytes in Blood by Automated counOrdered By: Prem Goel on 03-12-2023 WBC corrected for nucl RBC Auto (Bld) [#/Vol] 6.1 10*3/uL 3.8-11.6 [facility] Lymphocytes Auto (Bld) [#/Vo l]Ordered By: Prem Goel on 03-12-2023 Lymphocytes (Bld) [#/Vol] 2.6 10*3/uL 1.00-4.8 [facility] Lymphocytes/100 WBC Auto (Bl d)Ordered By: Prem Goel on 03-12-2023 Lymphocytes/100 WBC (Bld) 42.3 % . [facility] MCH Auto (RBC) [Entitic mass ]Ordered By: Prem Goel on 03-12-2023 MCH (RBC) [Entitic mass] 29.8 pg 24.7-34.3 [facility] MCHC Auto (RBC) [Mass/Vol]Or dered By: Prem Goel on 03-12-2023 MCHC (RBC) [Mass/Vol] 33.0 g/dL 32.0-35.0 [facility] MCV Auto (RBC) [Entitic vol] Ordered By: Prem Goel on 03-12-2023 MCV (RBC) [Entitic vol] 90.5 fL 80-100 F [facility] Monocytes Auto (Bld) [#/Vol] Ordered By: Prem Goel on 03-12-2023 Monocytes (Bld) [#/Vol] 0.6 10*3/uL 0.0-0.8 [facility] Monocytes/100 WBC Auto (Bld) Ordered By: Prem Goel on 03-12-2023 Monocytes/100 WBC (Bld) 9.1 % . F [facility] Neutrophils Auto (Bld) [#/Vo l]Ordered By: Prem Goel on 03-12-2023 Neutrophils (Bld) [#/Vol] 2.8 10*3/uL 1.8-7.7 [facility] Neutrophils/100 WBC Auto (Bl d)Ordered By: Prem Goel on 03-12-2023 Neutrophils/100 WBC (Bld) 45.6 % . [facility] No Panel InformationOrdered By: Prem Goel on 03-12-2023 Estimated GFR (CKD-EPI) > 60.0 mL/Min [facility]acy Creatinine Clearance (Chem N/A [facility] Nucleated erythrocytes [Pres ence] in Blood by Automated countOrdered By: Prem Goel on 03-12-2023 Nucleated RBC Auto Ql (Bld) 0.1 /100{WBC} 0-0.5 [facility] Platelet mean volume Auto (B ld) [Entitic vol]Ordered By: Prem Goel on 03-12-2023 Platelet mean volume (Bld) [Entitic vol] 10.2 fL 6.3-10.7 [facility] Platelets Auto (Bld) [#/Vol] Ordered By: Prem Goel on 03-12-2023 Platelets (Bld) [#/Vol] 201 10*3/uL 150-450 [facility] Potassium [Moles/volume] in Serum or PlasmaOrdered By: Prem Goel on 03-12-2023 Potassium [Moles/Vol] 4.3 mmol/L 3.5-5.1 [facility] Protein [Mass/volume] in Ser um or PlasmaOrdered By: Prem Goel on 03-12-2023 Protein [Mass/Vol] 6.1 g/dL 6.4-8.9 [facility] RBC Auto (Bld) [#/Vol]Ordere d By: Prem Goel on 03-12-2023 RBC (Bld) [#/Vol] 4.99 10*6/uL 3.60-5.00 [facility] Serum or plasma albumin/glob ulin mass ratioOrdered By: Prem Goel on 03-12-2023 Albumin/Globulin [Mass ratio] 1.8 {ratio} [facility] Serum or plasma anion gap de terminationOrdered By: Prem Goel on 03-12-2023 Anion gap [Moles/Vol] 10.1 mmol/L 6.0-15.0 [facility] Serum or plasma high density lipoprotein (HDL) cholesterol measurementOrdered By: Prem Goel on 03-12-2023 Cholesterol in HDL [Mass/Vol] 66 mg/dL 23-92 [facility] Comment on above: HDL CHOL ATP-III CLA SSIFICATION Cardiovascular RiskHDL > or equal to 60 mg/dL LOWHDL < 40 mg/dL HIGH Serum or plasma total choles terol/high density lipoprotein (HDL) cholesterol mass ratOrdered By: Prem Goel on 03-12-2023 Cholesterol.total/Araceli sterol in HDL [Mass ratio] 3.5 {ratio} <5.0 [facility] Sodium [Moles/volume] in Ser um or PlasmaOrdered By: Prem Goel on 03-12-2023 Sodium [Moles/Vol] 141 mmol/L 136-145 [facility] Thyrotropin [Units/volume] i n Serum or PlasmaOrdered By: Prem Goel on 03-12-2023 TSH Qn 1.91 m[IU]/L 0.45-5.33 [facility] Triglyceride [Mass/volume] i n Serum [...] 03-12-2023 Urea nitrogen [Mass/Vol] 18 mg/dL 7-25 [facility] WBC Auto (Bld) [#/Vol]Ordere d By: Prem Goel on 03-12-2023 WBC (Bld) [#/Vol] 6.1 10*3/uL 3.8-11.6 [facility] Albumin [Mass/volume] in Ser um or PlasmaOrdered By: Prem Goel on 04-29-2022 Albumin [Mass/Vol] 3.4 g/dL 3.2-5.5 [facility] Basophils Auto (Bld) [#/Vol] Ordered By: Prem Goel on 04-29-2022 Basophils (Bld) [#/Vol] 0.0 10*3/uL 0.0-0.2 [facility] Basophils/100 WBC Auto (Bld) Ordered By: Prem Goel on 04-29-2022 Basophils/100 WBC (Bld) 0.3 % . F [facility] Cholesterol [Mass/volume] in Serum or PlasmaOrdered By: Prem Goel on 04-29-2022 Cholesterol [Mass/Vol] 196 mg/dL 140-200 [facility] Comment on above: Chol less than 200 m g/dl low riskChol 201-239 mg/dl borderline riskChol 240 mg/dl and greater high risk Cholesterol in LDL Calc [Mas s/Vol]Ordered By: Prem Goel on 04-29-2022 Cholesterol in LDL [Mass/Vol] 109 mg/dL 0-100 [facility] Comment on above: LDL ATP III CLASSIFI CATIONLDL less than 100 mg/dL OptimalLDL 100-129 mg/dL Near or above optimalLDL 130-159 mg/dL Borderline highLDL 160-189 mg/dL HighLDL greater than 189 mg/dL Very high Cholesterol in VLDL Calc [Ma ss/Vol]Ordered By: Prem Goel on 04-29-2022 Cholesterol in VLDL [Mass/Vol] 10 mg/dL [facility] Creatinine and Glomerular fi ltration rate.predicted panel (S/P/Bld)Ordered By: Prem Goel on 04-29-2022 Creatinine [Mass/Vol] 0.80 mg/dL 0.44-1.03 [facility] Eosinophils Auto (Bld) [#/Vo l]Ordered By: Prem Goel on 04-29-2022 Eosinophils (Bld) [#/Vol] 0.1 10*3/uL 0.0-0.45 [facility] Eosinophils/100 WBC Auto (Bl d)Ordered By: Prem Goel on 04-29-2022 Eosinophils/100 WBC (Bld) 0.5 % . [facility] Erythrocyte distribution wid th Auto (RBC) [Ratio]Ordered By: Prem Goel on 04-29-2022 Erythrocyte distribution width (RBC) [Ratio] 13.4 % 11.9-15.3 [facility] Estimated glomerular filtrat ion rate (GFR) non- AmericanOrdered By: Prem Goel on 04-29-2022 GFR/1.73 sq M.predicted among non-blacks MDRD (S/P/Bld) [Vol rate/Area] > 60 mL/Min [facility] Globulin Calc (S) [Mass/Vol] Ordered By: Prem Goel on 04-29-2022 Globulin (S) [Mass/Vol] 3.3 g/dL F [facility] Hematocrit Auto (Bld) [Volum e fraction]Ordered By: Prem Goel on 04-29-2022 Hematocrit (Bld) [Volume fraction] 46.2 % 34.0-46.4 [facility] Hemoglobin [Mass/volume] in BloodOrdered By: Prem Goel on 04-29-2022 Hemoglobin (Bld) [Mass/Vol] 14.9 g/dL 11.8-15.4 [facility] Laboratory - Hematology and Cell countsOrdered By: Prem Goel on 04-29-2022 Nucleated RBC/100 WBC (Bld) [Ratio] 0.0 % 0-0.5 [facility] Leukocytes [#/volume] in Blo od by Automated countOrdered By: Prem Goel on 04-29-2022 WBC (Bld) [#/Vol] 10.7 10*3/uL 4.5-11.0 [facility] Lymphocytes Auto (Bld) [#/Vo l]Ordered By: Prem Goel on 04-29-2022 Lymphocytes (Bld) [#/Vol] 1.9 10*3/uL 1.00-4.8 [facility] Lymphocytes/100 WBC Auto (Bl d)Ordered By: Prem Goel on 04-29-2022 Lymphocytes/100 WBC (Bld) 17.7 % . [facility] MCH Auto (RBC) [Entitic mass ]Ordered By: Prem Goel on 04-29-2022 MCH (RBC) [Entitic mass] 30.0 pg 24.7-34.3 [facility] MCHC Auto (RBC) [Mass/Vol]Or dered By: Prem Goel on 04-29-2022 MCHC (RBC) [Mass/Vol] 32.1 g/dL 32.0-35.0 [facility] MCV Auto (RBC) [Entitic vol] Ordered By: Prem Goel on 04-29-2022 MCV (RBC) [Entitic vol] 93.4 fL 80-100 F [facility] Monocytes Auto (Bld) [#/Vol] Ordered By: Prem Goel on 04-29-2022 Monocytes (Bld) [#/Vol] 1.1 10*3/uL 0.0-0.8 [facility] Monocytes/100 WBC Auto (Bld) Ordered By: Prem Goel on 04-29-2022 Monocytes/100 WBC (Bld) 10.4 % . F [facility] Neutrophils Auto (Bld) [#/Vo l]Ordered By: Prem Goel on 04-29-2022 Neutrophils (Bld) [#/Vol] 7.6 10*3/uL 1.8-7.7 [facility] Neutrophils/100 WBC Auto (Bl d)Ordered By: Prem Gole on 04-29-2022 Neutrophils/100 WBC (Bld) 71.1 % . [facility] No Panel InformationOrdered By: Prem Goel on 04-29-2022 Estimated GFR () > 60 mL/Min [facility] Comment on above: GFR estimated refere nce range: According to KDOQI guidelines, <60 ml/min/1.73m2 is sufficient to diagnose a patient with chronic kidney disease. Pharmacy Creatinine Clearance (Chem N/A [facility] Platelet mean volume Auto (B ld) [Entitic vol]Ordered By: Prem Goel on 04-29-2022 Platelet mean volume (Bld) [Entitic vol] 10.2 fL 6.3-10.7 [facility] Platelets Auto (Bld) [#/Vol] Ordered By: Prem Goel on 04-29-2022 Platelets (Bld) [#/Vol] 238 10*3/uL 150-450 [facility] Protein [Mass/volume] in Ser um or PlasmaOrdered By: Prem Goel on 04-29-2022 Protein [Mass/Vol] 6.7 g/dL 6.1-7.9 [facility] RBC Auto (Bld) [#/Vol]Ordere d By: Prem Goel on 04-29-2022 RBC (Bld) [#/Vol] 4.95 10*6/uL 3.60-5.00 [facility] Serum or plasma alanine tobias otransferase measurement without P-5'-P (enzymatic activiOrdered By: Prem Goel on 04-29-2022 ALT No additional P-5'-P [Catalytic activity/Vol] 18 U/L 10-60 [facility] Serum or plasma albumin/glob ulin mass ratioOrdered By: Prem Goel on 04-29-2022 Albumin/Globulin [Mass ratio] 1.0 {ratio} [facility] Serum or plasma alkaline joshua sphatase measurement (enzymatic activity/volume)Ordered By: Prem Goel on 04-29-2022 ALP [Catalytic activity/Vol] 100 U/L 32-92 [facility] Serum or plasma anion gap de terminationOrdered By: Prem Goel on 04-29-2022 Anion gap [Moles/Vol] 10.5 mmol/L 6.0-15.0 [facility] Serum or plasma aspartate am inotransferase measurement (enzymatic activity/volume)Ordered By: Prem Goel on 04-29-2022 AST [Catalytic activity/Vol] 19 U/L 10-42 [facility] Serum or plasma calcium erica urement (mass/volume)Ordered By: Prem Goel on 04-29-2022 Calcium [Mass/Vol] 9.2 mg/dL 8.2-10.2 [facility] Serum or plasma chloride omaira surement (moles/volume)Ordered By: Prem Goel on 04-29-2022 Chloride [Moles/Vol] 102 mmol/L 95-114 [facility] Serum or plasma glucose erica urement (mass/volume)Ordered By: Prem Goel on 04-29-2022 Glucose [Mass/Vol] 111 mg/dL 70-100 [facility] Comment on above: ADA recommended refe rence rangeRandom Glucose Reference Range is dependent on time and content of last meal. Glucose of more than 200 mg/dL in a nonstressed, ambulatory subject supports the diagnosis of Diabetes Mellitus. Serum or plasma high density lipoprotein (HDL) cholesterol measurementOrdered By: Prem Goel on 04-29-2022 Cholesterol in HDL [Mass/Vol] 76 mg/dL 35-85 [facility] Comment on above: HDL CHOL ATP-III CLA SSIFICATION Cardiovascular RiskHDL > or equal to 60 mg/dL LOWHDL < 40 mg/dL HIGH Serum or plasma potassium me asurement (moles/volume)Ordered By: Prem Goel on 04-29-2022 Potassium [Moles/Vol] 4.0 mmol/L 3.5-5.1 [facility] Serum or plasma sodium measu rement (moles/volume)Ordered By: Prem Goel on 04-29-2022 Sodium [Moles/Vol] 137 mmol/L 136-146 [facility] Serum or plasma total biliru bin measurement (mass/volume)Ordered By: Prem Goel on 04-29-2022 Bilirubin [Mass/Vol] 0.8 mg/dL 0.3-1.2 [facility] Serum or plasma total carbon dioxide measurement (moles/volume)Ordered By: Prem Goel on 04-29-2022 CO2 [Moles/Vol] 28.5 mmol/L 22.0-30.0 [facility] Serum or plasma total choles terol/high density lipoprotein (HDL) cholesterol mass ratOrdered By: Prem Goel on 04-29-2022 Cholesterol.total/Araceli sterol in HDL [Mass ratio] 2.6 {ratio} <5.0 [facility] Serum or plasma urea nitroge n measurement (mass/volume)Ordered By: Prem Goel on 04-29-2022 Urea nitrogen [Mass/Vol] 14 mg/dL 02-28 [facility] TSH DL <= 0.005 mIU/L QnOrde red By: Prem Goel on 04-29-2022 TSH Qn 1.74 m[IU]/L 0.45-5.33 [facility] Triglyceride [Mass/volume] i n Serum [...] 04-30-2021 HbA1c (Bld) [Mass fraction] 5.8 % [facility] Other HbA1c (Bld) [Mass fraction]o n 04-30-2021 A1C HEMOGLOBIN [place] Other [facility] CARDIAC STRESS/REST ([facility] CARDIAL PERFUSION/MIBI)on 04-09-2020 [facility] CARDIAC STRESS/REST (MYOCARDIAL PERFUSION/MIBI) N: [id number] Patient Name: MARY WILKERSON STUDY: MYOCARDIAL PERFUSION STRESS TEST WITH LEXISCAN Performing facility: [facility], [address] [place] [address], [address], [place] [address] [facility] Provider: WP SMYTH PCP: Dr. PREM GOEL Supervising provider: WP SMYTH INDICATION: CP HISTORY: Gender: F; Age: 84 y/o ; Height: 157.48 cm; Weight: 78.4511874 kg. High Cholesterol; CP Family HX CAD; Denies smoking. COMPARISON: Previous nuclear testing completed at [facility]. ACCESSION NUMBER(S): [id number] ORDERING CLINICIAN: MATT SMYTH TECHNIQUE: ONE DAY [...] Electronically signed by: BRIELLE DUVAL MD Normal [facility] CARDIAC STRESS/REST INJE CTIONon 04-09-2020 [facility] CARDIAC STRESS/REST INJECTION Patient Name: MARY WILKERSON STUDY: MYOCARDIAL PERFUSION STRESS TEST WITH LEXISCAN Performing facility: [facility], [address] [place] [address], [address], [place] [address] [facility] Provider: WP SMYTH PCP: Dr. PREM GOEL Supervising provider: WP SMYTH INDICATION: CP HISTORY: Gender: F; Age: 84 y/o ; Height: 157.48 cm; Weight: 78.5711947 kg. High Cholesterol; CP Family HX CAD; Denies smoking. COMPARISON: Previous nuclear testing completed [id number] at [facility]. ACCESSION NUMBER(S): [id number] ORDERING CLINICIAN: MATT SMYTH TECHNIQUE: ONE DAY [...] comparison. Electronically signed by: BRIELLE DUVAL MD [facility] PART 2 STRESS OR REST (N O CHARGE)on 04-09-2020 [facility] PART 2 STRESS OR REST (NO CHARGE) Patient Name: MARY WILKERSON STUDY: MYOCARDIAL PERFUSION STRESS TEST WITH LEXISCAN Performing facility: [facility], [address] [place] [address], [address], [place] [address] [facility] Provider: WP SMYTH PCP: Dr. PREM GOEL Supervising provider: WP SMYTH INDICATION: CP HISTORY: Gender: F; Age: 84 y/o ; Height: 157.48 cm; Weight: 78.0109906 kg. High Cholesterol; CP Family HX CAD; Denies smoking. COMPARISON: Previous nuclear testing completed at [facility]. ACCESSION NUMBER(S): [id number] ORDERING CLINICIAN: MATT SMYTH TECHNIQUE: ONE DAY [...] Electronically signed by: BRIELLE DUVAL MD Normal [facility] Vital Signs Date Time Vital Sign Value Performing Clinician Facility 09-06-2024 13:46-0400 Body height 1554.48 cm [facility] 09-06-2024 13:46-0400 Body mass index (BMI) [Ratio] 0.3 kg/m2 [facility] 09-06-2024 13:46-0400 Body temperature 97.1 [degF] [facility] 09-06-2024 13:46-0400 Body weight 72.6 kg [facility] 09-06-2024 13:46-0400 Diastolic blood pressure 98 mm[Hg] [facility] 09-06-2024 13:46-0400 Heart rate 69 /min [facility] 09-06-2024 13:46-0400 Respiratory rate 19 /min [facility] 09-06-2024 13:46-0400 SaO2% (BldA) [Mass fraction] 69 % [facility] 09-06-2024 13:46-0400 Systolic blood pressure 145 mm[Hg] [facility] 04-04-2024 08:12-0400 Body height 154.94 cm DO Prem Kuns Work Phone: [facility] 04-04-2024 08:12-0400 Body mass index (BMI) [Ratio] 30.2 kg/m2 DO Prem Kuns Work Phone: [facility] 04-04-2024 08:12-0400 Body weight 72.57 kg DO Prem Kuns Work Phone: [facility] 04-04-2024 08:12-0400 Diastolic blood pressure 80 mm[Hg] DO Prem Kuns Work Phone: [facility] 04-04-2024 08:12-0400 Heart rate 65 /min DO Prem Kuns Work Phone: [facility] 04-04-2024 08:12-0400 Respiratory rate 16 /min DO Prem Kuns Work Phone: [facility] 04-04-2024 08:12-0400 SaO2% (BldA) [Mass fraction] 97 % DO Prem Kuns Work Phone: [facility] 04-04-2024 08:12-0400 Systolic blood pressure 118 mm[Hg] DO Prem Kuns Work Phone: [facility] 12-29-2023 10:06-0400 Body height 154.94 cm DO Prem Kuns Work Phone: [facility] 12-29-2023 10:06-0400 Body mass index (BMI) [Ratio] 30.2 kg/m2 DO Prem Kuns Work Phone: [facility] 12-29-2023 10:06-0400 Body weight 72.57 kg DO Prem Kuns Work Phone: [facility] 12-29-2023 10:06-0400 Diastolic blood pressure 80 mm[Hg] DO Prem Kuns Work Phone: [facility] 12-29-2023 10:06-0400 Heart rate 56 /min DO Prem Kuns Work Phone: [facility] 12-29-2023 10:06-0400 Respiratory rate 16 /min DO Prem Kuns Work Phone: [facility] 12-29-2023 10:06-0400 SaO2% (BldA) [Mass fraction] 96 % DO Prem Kuns Work Phone: [facility] 12-29-2023 10:06-0400 Systolic blood pressure 124 mm[Hg] DO Prem Kuns Work Phone: [facility] 09-24-2023 09:41-0400 Body height 154.94 cm DO Prem Kuns Work Phone: [facility] 09-24-2023 09:41-0400 Body mass index (BMI) [Ratio] 30.9 kg/m2 DO Prem Kuns Work Phone: [facility] 09-24-2023 09:41-0400 Body weight 74.38 kg DO Prem Kuns Work Phone: [facility] 09-24-2023 09:41-0400 Diastolic blood pressure 80 mm[Hg] DO Prem Kuns Work Phone: [facility] 09-24-2023 09:41-0400 Heart rate 57 /min DO Prem Kuns Work Phone: [facility] 09-24-2023 09:41-0400 Respiratory rate 16 /min DO Prem Kuns Work Phone: [facility] 09-24-2023 09:41-0400 SaO2% (BldA) [Mass fraction] 92 % DO Prem Kuns Work Phone: [facility] 09-24-2023 09:41-0400 Systolic blood pressure 138 mm[Hg] DO Prem Kuns Work Phone: [facility] 03-17-2023 08:45-0400 Body height 154.94 cm Prme [facility] Other [facility] Other 03-17-2023 08:45-0400 Body mass index (BMI) [Ratio] 30.98 kg/m2 Prem Raulitos Other [facility] Other 03-17-2023 08:45-0400 Body weight 74.39 kg Prem Popcutss Other [facility] Other 03-17-2023 08:45-0400 Diastolic blood pressure 76 mm[Hg] Prem Popcutss Other [facility] Other 03-17-2023 08:45-0400 Respiratory rate 16 /min Prem Popcutss Other [employer] Other 03-17-2023 08:45-0400 SaO2% (BldA) [Mass fraction] 96 % Prem Kuns Other [facility] Other 03-17-2023 08:45-0400 Systolic blood pressure 120 mm[Hg] Prem Kuns Other [employer] Other 11-12-2022 14:45-0400 Body height 154.94 cm Prem Kuns Other [employer] Other 11-12-2022 14:45-0400 Body mass index (BMI) [Ratio] 31.36 kg/m2 Prem Kuns Other [employer] Other 11-12-2022 14:45-0400 Body weight 75.3 kg Prem Kuns Other [facility] Other 11-12-2022 14:45-0400 Diastolic blood pressure 68 mm[Hg] Prem Kuns Other [facility] Other 11-12-2022 14:45-0400 Respiratory rate 16 /min Prem Kuns Other [employer] Other 11-12-2022 14:45-0400 SaO2% (BldA) [Mass fraction] 93 % Prem Kuns Other [facility] Other 11-12-2022 14:45-0400 Systolic blood pressure 124 mm[Hg] Prem Kuns Other [facility] Other 01-28-2022 11:15-0400 Body height 154.94 cm Prem Kuns Other [employer] Other 01-28-2022 11:15-0400 Body mass index (BMI) [Ratio] 30.98 kg/m2 Prem Kuns Other [facility] Other 01-28-2022 11:15-0400 Body weight 74.39 kg Prem Kuns Other [employer] Other 01-28-2022 11:15-0400 Diastolic blood pressure 82 mm[Hg] Prem Kuns Other [facility] Other 01-28-2022 11:15-0400 Respiratory rate 18 /min Prem Kuns Other [employer] Other 01-28-2022 11:15-0400 SaO2% (BldA) [Mass fraction] 95 % Prem Kuns Other [facility] Other 01-28-2022 11:15-0400 Systolic blood pressure 142 mm[Hg] Prem Kuns Other [facility] Other 08-15-2021 14:45-0500 Body height 154.94 cm Prem Kuns Other [facility] Other 08-15-2021 14:45-0500 Body mass index (BMI) [Ratio] 30.04 kg/m2 Prem Kuns Other [facility] Other 08-15-2021 14:45-0500 Body weight 72.12 kg Prem Kuns Other [facility] Other 08-15-2021 14:45-0500 Diastolic blood pressure 80 mm[Hg] Prem Kuns Other [facility] Other 08-15-2021 14:45-0500 Respiratory rate 16 /min Prem Kuns Other [employer] Other 08-15-2021 14:45-0500 SaO2% (BldA) [Mass fraction] 99 % Prem Kuns Other [facility] Other 08-15-2021 14:45-0500 Systolic blood pressure 142 mm[Hg] Prem Kuns Other [facility] Other 04-30-2021 11:45-0500 Body height 154.94 cm Prem Kuns Other [facility] Other 04-30-2021 11:45-0500 Body mass index (BMI) [Ratio] 29.74 kg/m2 Prem Kuns Other [employer] Other 04-30-2021 11:45-0500 Body weight 71.4 kg Prem Kuns Other [facility] Other 04-30-2021 11:45-0500 Diastolic blood pressure 87 mm[Hg] Prem Kuns Other [facility] Other 04-30-2021 11:45-0500 Respiratory rate 18 /min Prem Kuns Other [facility] Other 04-30-2021 11:45-0500 SaO2% (BldA) [Mass fraction] 93 % Prem Kuns Other [facility] Other 04-30-2021 11:45-0500 Systolic blood pressure 136 mm[Hg] Prem Kuns Other [facility] Other 02-28-2021 11:15-0400 Body height 154.94 cm Premsaloni Cabezaseddie Other [employer] Other 02-28-2021 11:15-0400 Body mass index (BMI) [Ratio] 29.85 kg/m2 Premsaloni Cabezass Other [facility] Other 02-28-2021 11:15-0400 Body weight 71.67 kg Premsaloni Cabezass Other [facility] Other 02-28-2021 11:15-0400 Diastolic blood pressure 86 mm[Hg] Prem Raulitos Other [facility] Other 02-28-2021 11:15-0400 Respiratory rate 16 /min Premsaloni Cabezass Other [facility] Other 02-28-2021 11:15-0400 SaO2% (BldA) [Mass fraction] 97 % Prem Raulitos Other [employer] Other 02-28-2021 11:15-0400 Systolic blood pressure 134 mm[Hg] Premsaloni Cabezass Other [employer] Other Encounters Encounter Date Encounter Type Care Provider Facility Start: 09-06-2024 End: 09-06-2024 ambulatory [facility] Work Phone: Start: 09-06-2024 End: 09-06-2024 Patient encounter procedure [facility] Work Phone: Start: 04-04-2024 End: 04-04-2024 ambulatory DO Prem Goel Work Phone: [facility] Work Phone: Start: 04-04-2024 End: 04-04-2024 Patient encounter procedure DO Prem Kuns Work Phone: [facility] Work Phone: Start: 04-04-2024 End: 04-04-2024 ambulatory DO Prem Kuns Work Phone: [facility] Work Phone: Start: 04-04-2024 End: 04-04-2024 Patient encounter procedure DO Prem Kuns Work Phone: [facility] Work Phone: Start: 03-30-2024 End: 03-30-2024 Patient encounter procedure DO Prem Kuns Work Phone: [facility] Work Phone: Start: 03-30-2024 End: 03-30-2024 ambulatory DO Prem Kuns Work Phone: [facility] Work Phone: Start: 12-29-2023 End: 12-29-2023 ambulatory DO Prem Kuns Work Phone: [facility] Work Phone: Start: 12-29-2023 End: 12-29-2023 Patient encounter procedure DO Prem Kuns Work Phone: [facility] Work Phone: Start: 10-12-2023 End: 10-12-2023 ambulatory DO Prem Kuns Work Phone: [facility] Work Phone: Start: 10-12-2023 End: 10-12-2023 Patient encounter procedure DO Prem Kuns Work Phone: [facility] Work Phone: Start: 10-06-2023 End: 10-06-2023 Patient encounter procedure DO Prem Kuns Work Phone: [facility] Work Phone: Start: 10-06-2023 End: 10-06-2023 ambulatory DO Prem Kuns Work Phone: [facility] Work Phone: Start: 09-24-2023 End: 09-24-2023 ambulatory DO Prem Kuns Work Phone: [facility] Work Phone: Start: 09-24-2023 End: 09-24-2023 Patient encounter procedure DO Prem Kuns Work Phone: [facility] Work Phone: Start: 09-18-2023 End: 09-18-2023 Patient encounter procedure DO Prem Kuns Work Phone: [facility] Work Phone: Start: 09-18-2023 End: 09-18-2023 ambulatory DO Prem Kuns Work Phone: [facility] Work Phone: Start: 08-11-2023 Non-patient / Non-visit DO Prem Kuns Work Phone: [facility] Work Phone: Start: 08-07-2023 Non-patient / Non-visit DO Prem Kuns Work Phone: [facility] Work Phone: Start: 08-03-2023 Non-patient / Non-visit DO Prem Kuns Work Phone: [facility] Work Phone: Start: 05-27-2023 End: 05-27-2023 ambulatory Prem Kuns Other [employer] Other Start: 05-27-2023 Telephone encounter Prem Kuns [facility] Start: 03-17-2023 End: 03-17-2023 ambulatory Prem Kuns Other [employer] Other Start: 03-17-2023 Office outpatient visit 25 minutes Prem Kuns [facility] Start: 03-12-2023 End: 03-12-2023 ambulatory DO Prem Kuns Work Phone: [facility] Work Phone: Start: 03-12-2023 End: 03-12-2023 Patient encounter procedure DO Prem Kuns Work Phone: [facility] Work Phone: Start: 01-30-2023 End: 01-30-2023 ambulatory Prem Raulitos Other [employer] Other Start: 01-30-2023 Telephone encounter Prem Raulitos [facility] Start: 11-12-2022 End: 11-12-2022 ambulatory Prem Raulitos Other [employer] Other Start: 11-12-2022 Office outpatient visit 25 minutes Prem Kuns [facility] Start: 11-04-2022 End: 11-04-[address] PREM GOEL Facility:[facility] Start: 11-04-2022 Telephone encounter Prem Raymon [facility] Start: 10-14-2022 End: 10-14-[address] [...] 05-06-2022 Annual wellness visit Prem arevalo Other [employer] Other Start: 04-29-2022 End: 04-29-2022 ambulatory DO Prem Goel Work Phone: [facility] Work Phone: Start: 04-29-2022 End: 04-29-2022 Patient encounter procedure DO Prem Goel Work Phone: [facility] Start: 03-06-2022 End: 03-07-[address] KHOA RAMOS . Facility:[facility] Start: 02-27-2022 End: 02-27-2022 ambulatory Prem Goel Other [employer] Other Start: 02-27-2022 Telephone encounter Prem Goel [facility] Start: 02-18-2022 End: 02-18-[address] KHOA RAMOS . Facility:[facility] Start: 01-28-2022 End: 01-28-2022 ambulatory Prem Goel Other [employer] Other Start: 01-28-2022 Office outpatient visit 15 minutes Prem Goel [facility] Start: 01-21-2022 End: 01-22-[address] KHOA RAMOS . Facility:[facility] Start: 12-02-2021 End: 12-02-2021 ambulatory Prem Goel Other [employer] Other Start: 12-02-2021 Telephone encounter Prem Kuns [facility] Start: 11-28-2021 End: 11-28-2021 ambulatory Prem Kuns Other [employer] Other Start: 11-28-2021 Telephone encounter Prem Kuns [facility] Start: 10-02-2021 End: 10-02-2021 ambulatory Prem Kuns Other [employer] Other Start: 10-02-2021 Telephone encounter Prem Kuns [facility] Start: 09-10-2021 End: 09-10-2021 ambulatory Prem Kuns Other [employer] Other Start: 09-10-2021 Telephone encounter Prem Kuns [facility] Start: 08-15-2021 End: 08-15-2021 ambulatory Prem Kuns Other [employer] Other Start: 08-15-2021 Office outpatient visit 25 minutes Prem Kuns [facility] Start: 08-12-2021 End: 08-12-2021 ambulatory Prem Kuns Other [employer] Other Start: 08-12-2021 Telephone encounter Prem Kuns [facility] Start: 06-13-2021 End: 06-13-2021 ambulatory Prem Kuns Other [employer] Other Start: 06-13-2021 Telephone encounter Prem Kuns [facility] Start: 04-30-2021 End: 04-30-2021 ambulatory Prem Kuns Other [employer] Other Start: 04-30-2021 Office outpatient visit 25 minutes Prem Kuns [facility] Start: 02-28-2021 End: 02-28-2021 ambulatory Premsaloni Goel Other [employer] [facility] [employer] Other Start: 02-28-2021 Patient encounter procedure Prem Cabezaseddie [facility] Start: 08-18-2019 Annual wellness visit Prem arevalo Other [facility] [employer] Other Procedures Date Procedure Procedure Detail Performing Clinician Start: 10-12-2023 Quick Strep (POC) DO Br ett Raulitos Work Phone: Start: 10-12-2023 RSV (POC) DO Prem K uns Work Phone: Plan of Treatment Date Care Activity Detail Author Start: 04-04-2024 Bacteria identified in Urine by Culture Urine Culture [facility] Start: 04-04-2024 Urine culture [facility] Comprehensive metabo lic 2000 panel - Serum or Plasma [facility] Glucose measurement estimated from glycated hemoglobin [facility] Glucose measurement estimated from glycated hemoglobin [facility] Immunizations Immunization Date Immunization Notes Care Provider Fa cility 06-13-2021 COVID-19 Vaccine Pfizer - Documentation Purposes Only Prem Goel Other [facility] 07-19-2020 COVID-19 Vaccine Pfizer - Documentation Purposes Only Prem Goel Other [facility] 06-29-2020 COVID-19 Vaccine Pfizer - Documentation Purposes Only Prem Cabezass Other [facility] NEGATED: Highlighted row has not occurred!05-06-2022 influenza, seasonal, injectable Patient Objection Prem Goel Other [facility] NEGATED: Highlighted row has not occurred!05-06-2022 Prevnar 20 Patient Objection Prem Goel Other [facility] NEGATED: Highlighted row has not occurred!02-17-2019 influenza, seasonal, injectable Patient Objection Prem Goel Other [facility] NEGATED: Highlighted row has not occurred!04-07-2017 influenza, seasonal, injectable Patient Objection Prem Goel Other [facility] Payers Date Payer Category Payer Self-pay [id number] Private Health Insurance [id number] 1937 Unknown [id number] 1937 Unknown [id number] [id number] 1937 Unknown [id number] [id number] 1937 Unknown [id number] [id number] 1937 Unknown [id number] [id number] 1937 Unknown [id number] 2.16.840.1.373460.3.579.2.593 1937 Unknown [id number] 2.16.840.1.337297.3.579.2.593 1937 Unknown [id number] 2.16.840.1.948717.3.579.2.593 1937 Unknown [id number] 2.16.840.1.928694.3.579.2.593 1937 Unknown [id number] 2.16.840.1.740181.3.579.2.593 1937 Unknown [id number] [id number] Medicare Medicare [id number] Unknown [facility] Health Claims [id number] Unknown [id number] [id number] Unknown [id number] 2.16.840.1.597715.3.579.2.531 Unknown [id number] 2.16.840.1.096518.3.579.2.531 Unknown [id number] [id number] Social History Date Type Detail Facility Unknown if ever smoked [employer] Other Sex Assigned At Sex Assigned At Bir th [employer] Other Start: 03-28-2020 End: 12-29-2023 Tobacco smoking status NHIS Never smoked tobacco (finding) [facility] Start: 1935 Sex Assigned At Female F [facility] Start: 09-06-2024 Sex Female (finding) [facility] Clinical Notes 12-21-2007 to 04-04-2024 Note Date & Type Note Facility 04-04-2024 Evaluation note Authored April 04, 2024 8:14am The above note written by JUVENAL Diamond acting as human recorder, note dictated by Dr. Prem Goel. [facility] Work Phone: [phone] 464-440310-10-2023 Evaluation note* Encounter Date Diagnosis Assessment Notes [...] exercise regimen; we will continue to monitor. [employer] Other 08-25-2023 Evaluation note* Encounter Date Diagnosis Assessment Notes Treatment Notes Treatment Clinical Notes Jan, Hyperlipidemia (ICD-10 - E78.5) [facility] Other 06-07-2023 Evaluation note* Encounter Date Diagnosis Assessment Notes Treatment Notes Treatment Clinical Notes Nov, Bronchopneumonia (ICD-10 - J18.0) [facility] records reviewed from both 11/06 and [...] (ICD-10 - R59.0) Noted on imaging from [facility]. I do believe this is likely due to her being ill. She has never smoked. Discussed these findings with the and the patient if symptoms persist we may have pulmonary evaluation but at this time patient appears to be improving [facility] Other 04-27-2023 NoteCONSULTATION CONSULTATION DATE: 10/02/2022 TO: [...] our patients to inform us about any yysm-tpc-erreeds medications or herbal remedies/nutritional supplements/alternative remedies. 2. [...] treatment options with their primary care provider.[id number] Note CONSULTATION CONSULTATION DATE: 09/04/2022 TO: Dr. [...] mg pills, 1-2 at h.s. as tolerated.[id number] NoteCONSULTATION CONSULTATION DATE: 07/22/2022 CHIEF COMPLAINT: Right [...] her understand and would like to proceed,.[facility] 05-08-2022 NoteCONSULTATION CONSULTATION DATE: 05/08/2022 HISTORY [...] in three months' time unless otherwise indicated.[id number] NoteCONSULTATION CONSULTATION DATE: 03/06/2022 This is a [...] of care and all questions were answered.[id number] Evaluation note* Encounter Date Diagnosis Assessment Notes Treatment Notes Treatment Clinical Notes Feb, Hyperlipidemia (ICD-10 - E78.5) [facility] Other 08-23-2022 Evaluation note* Encounter Date Diagnosis [...] E78.5) Jan, Hyperglycemia (ICD-1 0 - R73.9) [facility] Other 08-16-2022 NoteCONSULTATION CONSULTATION DATE: 01/21/2022 CHIEF COMPLAINT: Low back pain, right leg pain. HISTORY OF PRESENT ILLNESS: This is a very pleasant, 86-year-old female, who is referred to us by Dr. Raphael. The patient has had no recent injury; [...] and her understand. CC: Dr. Raphael Escamilla D.O.[facility]05-20-2022 NotePROCEDURE: Souche Signa HDXT 1.5 Sagittal T1, T2, STIR [...] and signed by Ralph Figueroa on 10/25/2021 1510[facility] [id number] Evaluation note* Encounter Date Diagnosis Assessment Notes [...] we will attempt to order an MRI. [facility] Other 01-06-2022 Evaluation note* Encounter Date Diagnosis Assessment Notes Treatment Notes Treatment Clinical Notes Jun, Hyperlipidemia (ICD-10 - E78.5) [facility] Other 11-23-2021 Evaluation note* Encounter Date Diagnosis [...] work-up i.e. CAT scan of her abdomen. [facility] Other 09-23-2021 Evaluation note* Encounter Date Diagnosis [...] monitor, a blood work order was provided. [facility] Other 07-15-2008 History general Narrative - Reported* Type Description Date Medical History Colonoscopy 12-21-07 Medical History Stress Test 01-18-[address] Scan Abdomen and Pelvis 06-07 Medical History Mammogram 2-11 Medical History Pap 1-10 Medical History 02/2013 [facility] Medical History 10/13/13-mammogram at [facility] Medical History 12/2015 mammogram Medical History 12/2016 Mammogram Medical History 07/2019 Mammogram Medical History Cardiolite 04/09/20 Surgical History wisdom teeth Hospitalization History child [employer] Other 07-15-2008 History general Narrative - Reported* Type Description Date Medical History Colonoscopy 12-21-07 Medical History Stress Test 01-18-[address] Scan Abdomen and Pelvis 06-07 Medical History Mammogram 2-11 Medical History Pap 1-10 Medical History 02/2013 [facility] Medical History 10/13/13-mammogram at [facility] Medical History 12/2015 mammogram Medical History 12/2016 Mammogram Medical History 07/2019 Mammogram Medical History Cardiolite 04/09/20 Medical History hearing aids Surgical History wisdom teeth Hospitalization History child [facility] [employer] Other Evaluation noteNo InformationNortGeising[facility] [employer] Other Evaluation noteNo assessment information available [facility] Work Phone: Evaluation note* Diagnosis Onset Date Resolution Status Degenerative disc disease, lumbar acute Encounter for subsequent alphonse ual wellness visit (AWV) in Medicare patient acute Fall acute Hyperlipidemia acute Lower extremity edema acute Prediabetes acute Screening mammogram for breast cancer acute Urinary incontinence acute [facility] Work Phone: Evaluation note* Author Beena Packer [facility] Authored December 29, 2023 10:0 4am The above note written by JUEVNAL Diamond acting as human recorder, note dictated by Dr.Brett Goel. [facility] Work Phone: Evaluation note* Author Beena Packer [facility] Authored April 04, 2024 8 :14am The above note written by JUVENAL Diamond acting as human recorder, note dictated by Dr. Prem Goel. [facility] Work Phone: Summary Purpose Family History [...] Hyperlipidemia Urge incontinence of urine Urinary frequency Chief Complaint Admit Date Plugged ears September 06, 2024 1:34 pm Additional Source Comments INFORMATION SOURCE (unrecogn ized section and content) DATE CREATED AUTHOR 04/11/2020 [facility] DATE CREATED AUTHOR AUTHOR'S ORGANIZ ATION 10/27/2021 [facility] d[facility] Specialist DATE CREATED AUTHOR AUTHOR'S ORGANIZ ATION 10/17/2022 [facility] DATE CREATED AUTHOR AUTHOR'S ORGANIZ ATION 04/10/2024 [facility] REASON FOR VISIT (unrecogniz ed [...] 2024 Team Status: Inactive Member Role Status Ruiz Goel DO Primary Care Provide r, Attending Provider Active Start: April 04, 2024 End: April 04, 2024 Team Status: Inactive Member Role Status Ruiz Goel DO Primary Care Provider Active Sta rt: September 06, 2024 End: September 06, 2024 Yumiko Madera APRN Attending Provider Active Start: September 06, 2024 End: September 06, 2024 Goals (unrecognized section and content) Goals [...] BE BASED ON THE PRIMARY CLINICAL RECORDS. [facility] [employer] [facility]. provides no warranty or guarantee of the accuracy or completeness of information in this document.
--- NOTE | 2025-01-26 13:56 | PM.CN ---
Consult Note: HPI Data of Consult Patient: known to practice within the last 3 years Requesting Physician: Mercy Pak NP Primary Care Provider: PREM GOEL Consult Narrative Reason for consult: low back and right leg pain Narrative: Mary King a pleasant 89 year old female presents for evaluation of chronic low back and RLE pain secondary to lumbar ddd, lumbar disc bulge, and lumbar stenosis with NC. notes pain 3/10 increasing to 8/10 with standing, walking, sleeping, rolling over in bed. utilizing tylenol, diclofenac, zonegran with benefit without side effects. denies fall/injury since lsat visit. cc:: CC: Mercy Pak NP Review of Systems ROS Musculoskeletal Reports: back pain and extremity pain PFSH PFSH Medical History Low back pain ?M54.50 - Low back pain, unspecified (ICD-10) Hearing deficit ?H91.90 - Unspecified hearing loss, unspecified ear (ICD-10) High cholesterol ?E78.00 - Pure hypercholesterolemia, unspecified (ICD-10) Surgical History H/O breast biopsy ?Z98.890 - Other specified postprocedural states (ICD-10) Family History Brother Family history of CHF (congestive heart failure) Social History Within the past year, how often did you have a drink containing alcohol: monthly or less Within the past year, how many standard drinks containing alcohol did you have on a typical day: 1 or 2 Within the past year, how often did you have six or more drinks on one occasion: less than monthly Total score: 1 Score interpretation: A score less than 3 is consistent with normal alcohol consumption. 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 Known occupational exposures/hazards: No Highest level of school completed/degree received: high school graduate Do you want help with school or training: No Are you now , , , , never or living with a partner: In a typical week, how many times do you talk on the telephone with family, friends, or neighbors: 3 or more times per week How often do you get together with friends or relatives: 3 or more times per week How often do you attend druze or anglican services: 4 or more times per year Do you belong to any clubs or organizations such as druze groups unions, fraternal or athletic groups, or school groups: no Total score: 3 Score interpretation: A score of greater than or equal to 2 indicates the lowest level of social isolation. Little interest or pleasure in doing things: several days Feeling down, depressed, or hopeless: several days Feel stressed/tense/nervous/anxious/difficulty sleeping: only a little Due to disability, difficulty making decisions: No Do you think of yourself as: straight/heterosexual Gender Identity: female Meds Home Medications and Allergies Home Medications ?Medication ?Instructions ?Recorded ?Confirmed ?Type acetaminophen 650 mg 650 mg PO .QD 11/14/22 03/31/24 History tablet,extended release (Arthritis Pain Relief (acetaminophen) ER) diclofenac sodium 75 mg 75 mg PO BID #60 tabs 01/11/24 03/31/24 Rx tablet,delayed release zonisamide 25 mg capsule 50 mg PO BID 03/31/24 03/31/24 History diclofenac sodium 75 mg 75 mg PO BID PRN pain #60 tabs 07/13/24 Rx tablet,delayed release zonisamide 25 mg capsule (Zonegran) See Rx Instructions .Route 09/07/24 Rx .COMPLEX #360 caps diclofenac sodium 75 mg 75 mg PO BID PRN pain #60 tabs 12/12/24 Rx tablet,delayed release Allergies Allergy/AdvReac Type Severity Reaction Status Date / Time No Known Drug Allergies Allergy Verified 03/08/24 08:33 Exam Constitutional Documenting provider has reviewed patient's vital signs: yes Common normals: no apparent distress, oriented x3, healthy appearing, alert and well nourished General appearance: cooperative HENMT Common normals: normocephalic, hearing grossly normal bilaterally and moist oral mucous membranes Head and scalp: normocephalic Eye Common normals: PERRL Pupil: PERRL Neck & C-Spine Common normals: full ROM General: normal visual inspection Chest Common normals: inspection of chest normal Respiratory Common normals: normal respiratory effort, no retractions and no use of accessory muscles Back & Pelvis Lumbar spine/lower back: ROM limited, pain with ROM and straight leg raise positive right Sacroiliac joints: SI joint(s) abnormal (mild pain over right PSIS) Other: decreased sensation right L4,5,S1 strength 4/5 in RLE and 5/5 in LLE Extremity Common normals: normal to inspection and full ROM Neuro Common normals: oriented x3 Sensorium/orientation: alert Motor exam: no movement abnormalities noted Psych Common normals: mental status grossly normal, thought process normal, cooperative, affect normal, speech normal and activity/motor behavior normal Speech: normal speech Thought process: normal thought process Results Additional Findings Additional findings: If on a controlled substance or opioids, I have checked an [place] report on this patient and there are no aberrancies noted in the prescribing history.??If on a controlled substance or opioid a drug screen was completed and reviewed within the last year, and if there has not been a drug screen completed we ordered one today to monitor higher risk, state monitored pain medication use. As part of providing excellent, safe, comprehensive care, the following was completed at our patient's visit: 1. A medication reconciliation and review to ensure accurate knowledge of current/active medications, including asking our patients to inform us about any [id number] medications or herbal remedies/nutritional supplements/alternative remedies. 2. A review to specifically ensure our patients have had annual screening for screening for depression, screening for tobacco use, and screening for unhealthy alcohol use. For concerning screenings had a discussion with the patient, provided patient education, and recommended follow-up with primary care provider when appropriate. If patient noted with a risk of falling, they received education on strength, gait, and balance training to prevent future risk of falling. Portions of this note may have been carried over from the previous visit and updated as appropriate. Please note this office utilizes paper charting in addition to the electronic medical record. A list of current medications, vitals, and PMH is available there as the clinical staff outside of myself do not have access to [employer] charting during the clinic day operations. As part of providing quality comprehensive care the current medications, vitals, and PMH were reviewed in the paper chart. Assessment and Plan Assessment and Plan (1) Lumbar stenosis with neurogenic claudication: Assessment and Plan: The patient has had over 3 months of moderate to severe low back and right leg pain with functional impairment and inadequate response to conservative care including NSAIDS (unless there are contraindication such as concurrent blood thinners), multiple oral or topical pain medications, and home exercise program/physical therapy.? Patient has completed >6 weeks of guided home exercise program and/or formal physical therapy program without relief of their symptoms.? The Oswestry Disability Index was completed, and the patient scored a 28%.? The patient noted the following:?? moderate to severe pain impacting sitting, standing, sleeping, social life, travel ? (2) Lumbar radiculopathy: Plan right L4-5 L5-S1 TFESI under fluoroscopy continue HEP as tolerated continue current medications, tolerates well without side effects f/u after injection
== END 2025-01-26 13:23 | disposition home or self-care (01) ==
LOC: PM 13:22
PROVIDERS: PCP Family Medicine; Visit Provider Nurse Practitioner
DX: M48.062 Spinal stenosis, lumbar region with neurogenic claudication (principal); M54.16 Radiculopathy, lumbar region
CPT/HCPCS: G0463

== ENCOUNTER 2025-01-30 10:39 | Day surgery (SDC) | payer MEDICARE, SELFPAY ==
--- OUTSIDE RECORDS SUMMARY | 2025-01-30 10:46 | XMS_ITS | CCD ---
Author Organization [facility] CliniSytx Care Team Providers Care Frankfurter Inspector Name Role Phone Prem Goel Unavailable DO Prem Goel Primary Care Provider [phone] DO Prem Goel Attending Provider LAKSHMIPATHY ., [...] Primary Care Unavailable GARCIA .[employer] Unavailable RAOMS ., DR KHOA Hernandez Attending Unavailable PARAMJIT [...] vailable Kuns, DO Prem Primary Care Provider [phone] Kuns, DO Prem Attending Provider Kuns, DO Prem Primary Care Provider Kuns, DO Prem Attending Provider Kuns, DO Prem Primary Care Provider [phone] Kuns, DO Prem Attending Provider Kuns, DO [...] as needed Orally every 8 hrs Active [id number] actuat albuterol 0.09 mg/actuat metered dose [...] 2020 12:00am January 06, 2024 8:12am Vit No.[id number] (Classic ) 28 mg iron- 800 mcg tablet (8 sources) Start: 09-24-2023 End: 09-24-2023 Vit No.986-Tcme-Nprvh (Classic ) 28 mg iron- 800 mcg [...] Cx Nom (U) ORGANISM: Escherichia coli (O:ESCCOL) [facility] Count >100,000 Aerobic BLAYNE Charge (NMIC56) ---- [...] RESISTANT TO ALL B-LACTAM DRUGS. PERFORMED BY: [place] [address] [place] [address] PATHOLOGIST SLIVER LAP TENDER BEV TALBERT M.D. Normal [facility] Comment on above: Performed By: #### C UU #### [facility] [address] Alanine aminotransferase [En zymatic activity/volume] in Serum or PlasmaOrdered By: Prem Goel on 03-30-2024 ALT [Catalytic activity/Vol] 14 U/L Normal 7-52 [facility] Comment on above: Performed By: #### L IPID, TSH3, CMP, CBC #### [facility] [address] [place] [address] [place] Albumin [Mass/volume] in Ser um or Plasma by Bromocresol green (BCG) dye binding methoOrdered By: Prem Goel on 03-30-2024 Albumin BCG dye [Mass/Vol] 3.8 g/dL 3.5-5.7 [facility] Alkaline phosphatase [Enzyma tic activity/volume] in Serum or PlasmaOrdered By: Prem Goel on 03-30-2024 ALP [Catalytic activity/Vol] 87 U/L Normal 34-104 [facility] Comment on above: Performed By: #### L IPID, TSH3, CMP, CBC #### [address] Aspartate aminotransferase [ Enzymatic activity/volume] in Serum or PlasmaOrdered By: Prem Goel on 03-30-2024 AST [Catalytic activity/Vol] 15 U/L Normal 13-39 [facility] Comment on above: Performed By: #### L IPID, TSH3, CMP, CBC #### [facility] [address] [place] [address] Automated basophil %Ordered By: Prem Goel on 03-30-2024 Basophils/100 WBC (Bld) 0.8 % Normal . [facility] Comment on above: Performed By: #### L IPID, TSH3, CMP, CBC #### [facility] [address] [place] [address] Automated basophil countOrde red By: Prem Goel on 03-30-2024 Basophils (Bld) [#/Vol] 0.0 10*3/uL Normal 0.0-0.2 [facility] Comment on above: Result Comment: PERF ORMED BY: [place] [address] PATHOLOGIST SLIVER LAP TENDER BEV TALBERT M.D. Performed By: #### L IPID, TSH3, CMP, CBC #### [address] Automated blood monocyte cou ntOrdered By: Premsaloni Goel on 03-30-2024 Monocytes (Bld) [#/Vol] 0.5 10*3/uL Normal 0.0-0.8 [facility] Comment on above: Performed By: #### L IPID, TSH3, CMP, CBC #### [address] Automated eosinophil %Ordere d By: Premsaloni Goel on 03-30-2024 Eosinophils/100 WBC (Bld) 2.5 % Normal . [facility] Comment on above: Performed By: #### L IPID, TSH3, CMP, CBC #### [address] Automated eosinophil countOr dered By: Prem Goel on 03-30-2024 Eosinophils (Bld) [#/Vol] 0.1 10*3/uL Normal 0.0-0.45 [facility] Comment on above: Performed By: #### L IPID, TSH3, CMP, CBC #### [address] Automated monocyte %Ordered By: Prem Goel on 03-30-2024 Monocytes/100 WBC (Bld) 9.1 % Normal . [facility] Comment on above: Performed By: #### L IPID, TSH3, CMP, CBC #### [address] Automated neutrophil %Ordere d By: Premsaloni Cabezass on 03-30-2024 Neutrophils/100 WBC (Bld) 52.9 % Normal . [facility] Comment on above: Performed By: #### L IPID, TSH3, CMP, CBC #### [address] Bilirubin.total [Mass/volume ] in Serum or PlasmaOrdered By: Prem Goel on 03-30-2024 Bilirubin [Mass/Vol] 0.4 mg/dL Normal 0.3-1.0 [facility] Comment on above: Performed By: #### L IPID, TSH3, CMP, CBC #### [facility] [address] Calcium [Mass/volume] in Ser um or PlasmaOrdered By: Prem Goel on 03-30-2024 Calcium [Mass/Vol] 9.2 mg/dL Normal 8.6-10.3 [facility] Comment on above: Performed By: #### L IPID, TSH3, CMP, CBC #### [facility] [address] Carbon dioxide, total [Moles /volume] in Serum or PlasmaOrdered By: Prem Goel on 03-30-2024 CO2 [Moles/Vol] 28.9 mmol/L Normal 21.0-31.0 [facility] Comment on above: Performed By: #### L IPID, TSH3, CMP, CBC #### [facility] [address] [place] [address] [place] Chloride [Moles/volume] in S dede or PlasmaOrdered By: Prem Goel on 03-30-2024 Chloride [Moles/Vol] 106 mmol/L Normal 98-107 [facility] Comment on above: Performed By: #### L IPID, TSH3, CMP, CBC #### [facility] [address] [place] [address] [place] Cholesterol [Mass/volume] in Serum or PlasmaOrdered By: Prem Goel on 03-30-2024 Cholesterol [Mass/Vol] 319 mg/dL High 140-200 [facility] Comment on above: Chol less than 200 m g/dl low riskChol 201-239 mg/dl borderline riskChol 240 mg/dl and greater high risk Result Comment: Chol less than 200 mg/dl low risk Chol 201-239 mg/dl borderline risk Chol 240 mg/dl and greater high risk Performed By: #### L IPID, TSH3, CMP, CBC #### [facility] [address] Cholesterol in LDL Calc [Mas s/Vol]Ordered By: Prem Goel on 03-30-2024 Cholesterol in LDL [Mass/Vol] 230 mg/dL High 0-100 [facility] Comment on above: LDL ATP III CLASSIFI CATIONLDL less than 100 mg/dL OptimalLDL 100-129 mg/dL Near or above optimalLDL 130-159 mg/dL Borderline highLDL 160-189 mg/dL HighLDL greater than 189 mg/dL Very high Cholesterol in VLDL Calc [Ma ss/Vol]Ordered By: Prem Goel on 03-30-2024 Cholesterol in VLDL [Mass/Vol] 18 mg/dL [facility] Complete Blood Count Auto Di ffon 03-30-2024 Mean Corpuscular HGB Conc 33.4 g/dL Normal 32.0-35.0 [facility] Comment on above: Performed By: #### L IPID, TSH3, CMP, CBC #### [address] NRBC% 0.1 /100{WBC} Normal 0-0.5 [facility] Comment on above: Performed By: #### L IPID, TSH3, CMP, CBC #### [address] Comprehensive Metabolic Pane [place] 03-30-2024 Albumin [Mass/Vol] 3.8 g/dL Normal 3.5-5.7 [facility] Comment on above: Performed By: #### L IPID, TSH3, CMP, CBC #### [place] [address] [place] GFR/1.73 sq M.predicted MDRD (S/P/Bld) [Vol rate/Area] mL/min/{1.73_m2} Normal [facility] Comment on above: Performed By: #### L IPID, TSH3, CMP, CBC #### [address] Creatinine [Mass/volume] in Serum or PlasmaOrdered By: Prem Goel on 03-30-2024 Creatinine [Mass/Vol] 0.76 mg/dL Normal 0.60-1.20 [facility] Comment on above: Performed By: #### L IPID, TSH3, CMP, CBC #### [facility] [address] Erythrocyte distribution wid th [Ratio] by Automated countOrdered By: Prem Goel on 03-30-2024 Erythrocyte distribution width (RBC) [Ratio] 12.7 % Normal 11.9-15.3 [facility] Comment on above: Performed By: #### L IPID, TSH3, CMP, CBC #### [facility] [address] Erythrocytes [#/volume] in B lood by Automated countOrdered By: Prem Goel on 03-30-2024 RBC (Bld) [#/Vol] 4.43 10*6/uL Normal 3.60-5.00 [facility] Comment on above: Performed By: #### L IPID, TSH3, CMP, CBC #### [address] Glucose [Mass/volume] in Ser um or PlasmaOrdered By: Prem Goel on 03-30-2024 Glucose [Mass/Vol] 89 mg/dL Normal 70-100 [facility] Comment on above: ADA recommended refe rence rangeRandom Glucose Reference Range is dependent on time and content of last meal. Glucose of more than 200 mg/dL in a nonstressed, ambulatory subject supports the diagnosis of Diabetes Mellitus. Result Comment: [place] om Glucose Reference Range is dependent on time and content of last meal. Glucose of more than 200 mg/dL in a nonstressed, ambulatory subject supports the diagnosis of Diabetes Mellitus. ADA recommended reference range Performed By: #### L IPID, TSH3, CMP, CBC #### [facility] [address] Hematocrit [Volume Fraction] of Blood by Automated countOrdered By: Prem Goel on 03-30-2024 Hematocrit (Bld) [Volume fraction] 41.5 % Normal 34.0-46.4 [facility] Comment on above: Performed By: #### L IPID, TSH3, CMP, CBC #### [facility] [address] Hemoglobin [Mass/volume] in BloodOrdered By: rPem Goel on 03-30-2024 Hemoglobin (Bld) [Mass/Vol] 13.9 g/dL Normal 11.8-15.4 [facility] Comment on above: Performed By: #### L IPID, TSH3, CMP, CBC #### [facility] [address] Leukocytes [#/volume] correc guillermina for nucleated erythrocytes in Blood by Automated counOrdered By: Prem Goel on 03-30-2024 WBC corrected for nucl RBC Auto (Bld) [#/Vol] 5.4 10*3/uL 3.8-11.6 [facility] Leukocytes [#/volume] in Blo od by Automated countOrdered By: Prem Goel on 03-30-2024 WBC (Bld) [#/Vol] 5.4 10*3/uL Normal 3.8-11.6 [facility] Comment on above: Performed By: #### L IPID, TSH3, CMP, CBC #### [address] Lipid Panelon 03-30-2024 LDL Cholesterol,Calculated 230 mg/dL High 0-100 [facility] Comment on above: Result Comment: LDL ATP III CLASSIFICATION LDL less than 100 mg/dL Optimal LDL 100-129 mg/dL Near or above optimal LDL 130-159 mg/dL Borderline high LDL 160-189 mg/dL High LDL greater than 189 mg/dL Very high Performed By: #### L IPID, TSH3, CMP, CBC #### [address] Triglyceride w/Reflex 94 mg/dL Normal 0-149 [facility] Comment on above: Result Comment: TRIG ATP III CLASSIFICATION TRIG less than 150 mg/dL Normal TRIG 150-199 mg/dL Borderline high TRIG 200-500 mg/dL High TRIG greater than 500 mg/dL Very high Standard traceable to the Center for Disease Conrtrol and Prevention (CDC) test method. Performed By: #### L IPID, TSH3, CMP, CBC #### [address] VLDL CHOLESTEROL 18 mg/dL Normal [facility] Comment on above: Performed By: #### L IPID, TSH3, CMP, CBC #### [address] Lymphocytes [#/volume] in Bl ood by Automated countOrdered By: Prem Goel on 03-30-2024 Lymphocytes (Bld) [#/Vol] 1.9 10*3/uL Normal 1.00-4.8 [facility] Comment on above: Performed By: #### L IPID, TSH3, CMP, CBC #### [address] Lymphocytes/100 leukocytes i n Blood by Automated countOrdered By: Prem Goel on 03-30-2024 Lymphocytes/100 WBC (Bld) 34.7 % Normal . [facility] Comment on above: Performed By: #### L IPID, TSH3, CMP, CBC #### [address] MCH [Entitic mass] by Automa guillermina countOrdered By: Prem Goel on 03-30-2024 MCH (RBC) [Entitic mass] 31.3 pg Normal 24.7-34.3 [facility] Comment on above: Performed By: #### L IPID, TSH3, CMP, CBC #### [address] MCHC Auto (RBC) [Mass/Vol]Or dered By: Prem Goel on 03-30-2024 MCHC (RBC) [Mass/Vol] 33.4 g/dL 32.0-35.0 [facility] MCV [Entitic volume] by Auto mated countOrdered By: Prem Goel on 03-30-2024 MCV (RBC) [Entitic vol] 93.7 fL Normal 80-100 [facility] Comment on above: Performed By: #### L IPID, TSH3, CMP, CBC #### [facility] [address] Neutrophils [#/volume] in Bl ood by Automated countOrdered By: Prem Goel on 03-30-2024 Neutrophils (Bld) [#/Vol] 2.9 10*3/uL Normal 1.8-7.7 [facility] Comment on above: Performed By: #### L IPID, TSH3, CMP, CBC #### [facility] [address] [place] [address] No Panel InformationOrdered By: Prem Goel on 03-30-2024 Estimated GFR (CKD-EPI) > 60.0 mL/Min [facility] Creatinine Clearance (Chem N/A [facility] Nucleated erythrocytes [Pres ence] in Blood by Automated countOrdered By: Prem Goel on 03-30-2024 Nucleated RBC Auto Ql (Bld) 0.1 /100{WBC} 0-0.5 [facility] Platelet mean volume [Entiti c volume] in Blood by Automated countOrdered By: Prem Goel on 03-30-2024 Platelet mean volume (Bld) [Entitic vol] 10.4 fL Normal 6.3-10.7 [facility] Comment on above: Performed By: #### L IPID, TSH3, CMP, CBC #### [facility] [address] [place] [address] Platelets [#/volume] in Bloo d by Automated countOrdered By: Prem Goel on 03-30-2024 Platelets (Bld) [#/Vol] 199 10*3/uL Normal 150-450 [facility] Comment on above: Performed By: #### L IPID, TSH3, CMP, CBC #### [facility] [address] [place] [address] Potassium [Moles/volume] in Serum or PlasmaOrdered By: Prem Goel on 03-30-2024 Potassium [Moles/Vol] 4.1 mmol/L Normal 3.5-5.1 [facility] Comment on above: Performed By: #### L IPID, TSH3, CMP, CBC #### [facility] [address] Protein [Mass/volume] in Ser um or PlasmaOrdered By: Prem Goel on 03-30-2024 Protein [Mass/Vol] 6.1 g/dL Low 6.4-8.9 [facility] Comment on above: Performed By: #### L IPID, TSH3, CMP, CBC #### [address] Serum globulin measurement b y calculation (mass/volume)Ordered By: Prem Goel on 03-30-2024 Globulin (S) [Mass/Vol] 2.3 g/dL Normal [facility] Comment on above: Performed By: #### L IPID, TSH3, CMP, CBC #### [address] Serum or plasma albumin/glob ulin mass ratioOrdered By: Prem Goel on 03-30-2024 Albumin/Globulin [Mass ratio] 1.7 {ratio} Normal [facility] Comment on above: Performed By: #### L IPID, TSH3, CMP, CBC #### [address] Serum or plasma anion gap de terminationOrdered By: Prem Goel on 03-30-2024 Anion gap [Moles/Vol] 11.2 mmol/L Normal 6.0-15.0 [facility] Comment on above: Performed By: #### L IPID, TSH3, CMP, CBC #### [facility] [address] [place] [address] Serum or plasma high density lipoprotein (HDL) cholesterol measurementOrdered By: Prem Goel on 03-30-2024 Cholesterol in HDL [Mass/Vol] 70 mg/dL Normal [facility] Comment on above: HDL CHOL ATP-III CLA SSIFICATION Cardiovascular RiskHDL > or equal to 60 mg/dL LOWHDL < 40 mg/dL HIGH Result Comment: HDL CHOL ATP-III CLASSIFICATION Cardiovascular Risk HDL > or equal to 60 mg/dL LOW HDL < 40 mg/dL HIGH Performed By: #### L IPID, TSH3, CMP, CBC #### [facility] [address] [place] [address] Serum or plasma total choles terol/high density lipoprotein (HDL) cholesterol mass ratOrdered By: Prem Goel on 03-30-2024 Cholesterol.total/Araceli sterol in HDL [Mass ratio] 4.6 {ratio} Normal <5.0 [facility] Comment on above: Performed By: #### L IPID, TSH3, CMP, CBC #### [address] Sodium [Moles/volume] in Ser um or PlasmaOrdered By: Prem Goel on 03-30-2024 Sodium [Moles/Vol] 142 mmol/L Normal 136-145 [facility] Comment on above: Performed By: #### L IPID, TSH3, CMP, CBC #### [address] Thyrotropin [Units/volume] i n Serum or PlasmaOrdered By: Prem Goel on 03-30-2024 TSH Qn 2.68 m[IU]/L Normal 0.45-5.33 [facility] Comment on above: Result Comment: PERF ORMED BY: [place] [address] PATHOLOGIST [employer]IVER LAP TENDER BEV TALBERT M.D. Performed By: #### C MP, CBC, TSH3, LIPID #### [address] Triglyceride [Mass/volume] i n Serum or PlasmaOrdered By: Prem Goel on 03-30-2024 Triglyceride [Mass/Vol] 94 mg/dL 0-149 [facility] Comment on above: TRIG ATP III CLASSIF ICATIONTRIG less than 150 mg/dL NormalTRIG 150-199 mg/dL Borderline highTRIG 200-500 mg/dL High TRIG greater than 500 mg/dL Very highStandard traceable to the Center for Disease Conrtrol and Prevention (CDC) test method. Urea nitrogen [Mass/volume] in Serum or PlasmaOrdered By: Prem Goel on 03-30-2024 Urea nitrogen [Mass/Vol] 21 mg/dL Normal 7-25 [facility] Comment on above: Performed By: #### L IPID, TSH3, CMP, CBC #### [facility] [address] Influenza virus B Ag [Presen ce] in Upper respiratory specimen by Rapid immunoassayon 10-12-2023 FLUBV Ag IA.rapid Ql (Nph) Negative [facility] No Panel Informationon 10-11 Influenza Type A (Rapid) Negative [facility] POC SARS CoV-2 Antigen Negative [facility] No Panel InformationOrdered By: Prem Goel on 10-12-2023 Quick Strep (POC) [facility] RSV (POC) [facility] echo [facility]acicon [facility] echo tran[facility]horacic [facility] Main [place] [address] [place], [place] [id number] Echocardiogram Signed Patient: Mary Wilkerson MR#: [id number] 119 : 1935 Acct:[id number] Age/Sex: 87 / F ADM Date: 10/06/23 Loc: Room: Type: [facility] Attending Dr: Prem Goel DO Ordering Provider: Prem Goel DO Date of Service: 10/06/23 [facility] transthoracic: R60.0 - Localized edema Copies to: DO Bruce Solares MD, [facility] BSA: 1.7 m2 BP: 147/85 mmHg [...] 10/06/23 0852 Signed By: Bruce Caballero MD, [facility] 10/06/23 1757 Normal [facility] A1C with Estimated Average G bassam 09-18-2023 Glucose [Mass/Vol] 117 mg/dL Normal [facility] Comment on above: Order Comment: Reaso n for Exam Hyperglycemia Result Comment: PERF ORMED BY: [place] [address] PATHOLOGIST [employer]IVER [employer] TENDER BEV TALBERT M.D. Performed By: #### A 1C WT eA #### [address] Alanine aminotransferase [En zymatic activity/volume] in Serum or PlasmaOrdered By: Prem Goel on 09-18-2023 ALT [Catalytic activity/Vol] 15 U/L Normal 7-52 [facility] Comment on above: Order Comment: Reaso n for Exam Hyperlipidemia Performed By: #### C MP, CBC, TSH3, LIPID #### [facility] [address] [place] [address] [place] Albumin [Mass/volume] in Ser um or Plasma by Bromocresol green (BCG) dye binding methoOrdered By: Prem Goel on 09-18-2023 Albumin BCG dye [Mass/Vol] 4.0 g/dL 3.5-5.7 [facility] Alkaline phosphatase [Enzyma tic activity/volume] in Serum or PlasmaOrdered By: Prem Goel on 09-18-2023 ALP [Catalytic activity/Vol] 87 U/L Normal 34-104 [facility] Comment on above: Order Comment: Reaso n for Exam Hyperlipidemia Performed By: #### C MP, CBC, TSH3, LIPID #### [facility] [address] [place] [address] [place] Aspartate aminotransferase [ Enzymatic activity/volume] in Serum or PlasmaOrdered By: Prem Goel on 09-18-2023 AST [Catalytic activity/Vol] 16 U/L Normal 13-39 [facility] Comment on above: Order Comment: Reaso n for Exam Hyperlipidemia Performed By: #### C MP, CBC, TSH3, LIPID #### [facility] [address] Automated basophil %Ordered By: Prem Goel on 09-18-2023 Basophils/100 WBC (Bld) 0.5 % Normal . [facility] Comment on above: Performed By: #### C MP, CBC, TSH3, LIPID #### [facility] [address] [place] [address] Automated basophil countOrde red By: Prem Goel on 09-18-2023 Basophils (Bld) [#/Vol] 0.0 10*3/uL Normal 0.0-0.2 [facility] Comment on above: Result Comment: PERF ORMED BY: [place] [address] PATHOLOGIST [employer]IVER [employer] TEND[employer] BEV TALBERT M.D. Performed By: #### C MP, CBC, TSH3, LIPID #### [facility] [address] [place] [address] Automated blood monocyte cou ntOrdered By: Prem Goel on 09-18-2023 Monocytes (Bld) [#/Vol] 0.4 10*3/uL Normal 0.0-0.8 [facility] Comment on above: Performed By: #### C MP, CBC, TSH3, LIPID #### [facility] [address] [place] [address] Automated eosinophil %Ordere d By: Prem Goel on 09-18-2023 Eosinophils/100 WBC (Bld) 2.2 % Normal . [facility] Comment on above: Performed By: #### C MP, CBC, TSH3, LIPID #### [facility] [address] [place] [address] Automated eosinophil countOr dered By: Prem Goel on 09-18-2023 Eosinophils (Bld) [#/Vol] 0.1 10*3/uL Normal 0.0-0.45 [facility] Comment on above: Performed By: #### C MP, CBC, TSH3, LIPID #### [facility] [address] Automated monocyte %Ordered By: Prem Goel on 09-18-2023 Monocytes/100 WBC (Bld) 8.0 % Normal . [facility] Comment on above: Performed By: #### C MP, CBC, TSH3, LIPID #### [facility] [address] Automated neutrophil %Ordere d By: Prem Goel on 09-18-2023 Neutrophils/100 WBC (Bld) 36.1 % Normal . [facility] Comment on above: Performed By: #### C MP, CBC, TSH3, LIPID #### [facility] [address] [place] [address] Bilirubin.total [Mass/volume ] in Serum or PlasmaOrdered By: Prem Goel on 09-18-2023 Bilirubin [Mass/Vol] 0.6 mg/dL Normal 0.3-1.0 [facility] Comment on above: Order Comment: Reaso n for Exam Hyperlipidemia Performed By: #### C MP, CBC, TSH3, LIPID #### [facility] [address] [place] [address] Calcium [Mass/volume] in Ser um or PlasmaOrdered By: Prem Goel on 09-18-2023 Calcium [Mass/Vol] 9.5 mg/dL Normal 8.6-10.3 [facility] Comment on above: Order Comment: Reaso n for Exam Hyperlipidemia Performed By: #### C MP, CBC, TSH3, LIPID #### [facility] [address] [place] [address] Carbon dioxide, total [Moles /volume] in Serum or PlasmaOrdered By: Prem Goel on 09-18-2023 CO2 [Moles/Vol] 28.9 mmol/L Normal 21.0-31.0 [facility] Comment on above: Order Comment: Reaso n for Exam Hyperlipidemia Performed By: #### C MP, CBC, TSH3, LIPID #### [facility] [address] [place] [address] [place] Chloride [Moles/volume] in S dede or PlasmaOrdered By: Prem Goel on 09-18-2023 Chloride [Moles/Vol] 104 mmol/L Normal 98-107 [facility] Comment on above: Order Comment: Reaso n for Exam Hyperlipidemia Performed By: #### C MP, CBC, TSH3, LIPID #### [facility] [address] [place] [address] [place] Cholesterol [Mass/volume] in Serum or PlasmaOrdered By: Prem Goel on 09-18-2023 Cholesterol [Mass/Vol] 289 mg/dL High 140-200 [facility] Comment on above: Chol less than 200 m g/dl low riskChol 201-239 mg/dl borderline riskChol 240 mg/dl and greater high risk Order Comment: Reaso n for Exam Hyperlipidemia Result Comment: Chol less than 200 mg/dl low risk Chol 201-239 mg/dl borderline risk Chol 240 mg/dl and greater high risk Performed By: #### C MP, CBC, TSH3, LIPID #### [facility] [address] [place] [id number] [place] Cholesterol in LDL Calc [Mas s/Vol]Ordered By: Prem Goel on 09-18-2023 Cholesterol in LDL [Mass/Vol] 197 mg/dL 0-100 [facility] Comment on above: LDL ATP III CLASSIFI CATIONLDL less than 100 mg/dL OptimalLDL 100-129 mg/dL Near or above optimalLDL 130-159 mg/dL Borderline highLDL 160-189 mg/dL HighLDL greater than 189 mg/dL Very high Cholesterol in VLDL Calc [Ma ss/Vol]Ordered By: Prem Goel on 09-18-2023 Cholesterol in VLDL [Mass/Vol] 23 mg/dL [facility] Complete Blood Count Auto Di ffon 09-18-2023 Mean Corpuscular HGB Conc 31.9 g/dL Low 32.0-35.0 [facility] [facility] Comment on above: Performed By: #### C MP, CBC, TSH3, LIPID #### [facility] [address] [place] [address] [place] NRBC% 0.2 /100{WBC} Normal 0-0.5 [facility] Comment on above: Performed By: #### C MP, CBC, TSH3, LIPID #### [address] Comprehensive Metabolic Pane [place] 09-18-2023 Albumin [Mass/Vol] 4.0 g/dL Normal 3.5-5.7 [facility] Comment on above: Order Comment: Reaso n for Exam Hyperlipidemia Performed By: #### C MP, CBC, TSH3, LIPID #### [address] GFR/1.73 sq M.predicted MDRD (S/P/Bld) [Vol rate/Area] mL/min/{1.73_m2} Normal [facility] Comment on above: Order Comment: Reaso n for Exam Hyperlipidemia Performed By: #### C MP, CBC, TSH3, LIPID #### [address] Creatinine [Mass/volume] in Serum or PlasmaOrdered By: Prem Goel on 09-18-2023 Creatinine [Mass/Vol] 0.79 mg/dL Normal 0.60-1.20 [facility] Comment on above: Order Comment: Reaso n for Exam Hyperlipidemia Performed By: #### C MP, CBC, TSH3, LIPID #### [address] Erythrocyte distribution wid th [Ratio] by Automated countOrdered By: Prem Goel on 09-18-2023 Erythrocyte distribution width (RBC) [Ratio] 13.9 % Normal 11.9-15.3 [facility] Comment on above: Performed By: #### C MP, CBC, TSH3, LIPID #### [place] [address] [place] Erythrocytes [#/volume] in B lood by Automated countOrdered By: rPem Goel on 09-18-2023 RBC (Bld) [#/Vol] 4.87 10*6/uL Normal 3.60-5.00 [facility] Comment on above: Performed By: #### C MP, CBC, TSH3, LIPID #### [facility] [address] [place] [id number] [place] Glucose [Mass/volume] in Ser um or PlasmaOrdered By: Prem Goel on 09-18-2023 Glucose [Mass/Vol] 90 mg/dL Normal 70-100 [facility] Comment on above: ADA recommended refe rence rangeRandom Glucose Reference Range is dependent on time and content of last meal. Glucose of more than 200 mg/dL in a nonstressed, ambulatory subject supports the diagnosis of Diabetes Mellitus. Order Comment: Reaso n for Exam Hyperlipidemia Result Comment: [place] Glucose Reference Range is dependent on time and content of last meal. Glucose of more than 200 mg/dL in a nonstressed, ambulatory subject supports the diagnosis of Diabetes Mellitus. ADA recommended reference range Performed By: #### C MP, CBC, TSH3, LIPID #### [facility] [address] Glucose mean value [Mass/vol ume] in Blood Estimated from glycated hemoglobinOrdered By: Prem Goel on 09-18-2023 Average glucose Estimated from glycated hemoglobin (Bld) [Mass/Vol] 117 mg/dL [facility] Hematocrit [Volume Fraction] of Blood by Automated countOrdered By: Prem Goel on 09-18-2023 Hematocrit (Bld) [Volume fraction] 44.9 % Normal 34.0-46.4 [facility] Comment on above: Performed By: #### C MP, CBC, TSH3, LIPID #### [facility] [address] [place] [id number] [facility] Hemoglobin A1c percentageOrd ered By: Prem Goel on 09-18-2023 HbA1c (Bld) [Mass fraction] 5.7 % High 4.3-5.6 [facility] Comment on above: Increased risk for d iabetes: 5.7 - 6.4diabetes: >6.4glycemic control for adults with diabetes: <7.0 Order Comment: Reaso n for Exam Hyperglycemia Result Comment: Incr eased risk for diabetes: 5.7 - 6.4 diabetes: >6.4 glycemic control for adults with diabetes: <7.0 Performed By: #### A 1C WTH eA #### [facility] [address] Hemoglobin [Mass/volume] in BloodOrdered By: Prem Goel on 09-18-2023 Hemoglobin (Bld) [Mass/Vol] 14.3 g/dL Normal 11.8-15.4 [facility] Comment on above: Performed By: #### C MP, CBC, TSH3, LIPID #### [facility] [address] Leukocytes [#/volume] correc guillermina for nucleated erythrocytes in Blood by Automated counOrdered By: Prem Goel on 09-18-2023 WBC corrected for nucl RBC Auto (Bld) [#/Vol] 5.4 10*3/uL 3.8-11.6 [facility] Leukocytes [#/volume] in Blo od by Automated countOrdered By: Prem Goel on 09-18-2023 WBC (Bld) [#/Vol] 5.4 10*3/uL Normal 3.8-11.6 [facility] Comment on above: Performed By: #### C MP, CBC, TSH3, LIPID #### [address] Lipid Panelon 09-18-2023 LDL Cholesterol,Calculated 197 mg/dL High 0-100 [facility] Comment on above: Order Comment: Reaso n for Exam Hyperlipidemia Result Comment: LDL ATP III CLASSIFICATION LDL less than 100 mg/dL Optimal LDL 100-129 mg/dL Near or above optimal LDL 130-159 mg/dL Borderline high LDL 160-189 mg/dL High LDL greater than 189 mg/dL Very high Performed By: #### C MP, CBC, TSH3, LIPID #### [address] Triglyceride w/Reflex 116 mg/dL Normal 0-149 [facility] Comment on above: [...] #### C MP, CBC, TSH3, LIPID #### [address] VLDL CHOLESTEROL 23 mg/dL Normal [facility] Comment on above: Order Comment: Reaso n for Exam Hyperlipidemia Performed By: #### C MP, CBC, TSH3, LIPID #### [address] Lymphocytes [#/volume] in Bl ood by Automated countOrdered By: Prem Goel on 09-18-2023 Lymphocytes (Bld) [#/Vol] 2.9 10*3/uL Normal 1.00-4.8 [facility] Comment on above: Performed By: #### C MP, CBC, TSH3, LIPID #### [address] Lymphocytes/100 leukocytes i n Blood by Automated countOrdered By: Prem Goel on 09-18-2023 Lymphocytes/100 WBC (Bld) 53.2 % Normal . [facility] Comment on above: Performed By: #### C MP, CBC, TSH3, LIPID #### [address] MCH [Entitic mass] by Automa guillermina countOrdered By: Prem Goel on 09-18-2023 MCH (RBC) [Entitic mass] 29.4 pg Normal 24.7-34.3 [facility] Comment on above: Performed By: #### C MP, CBC, TSH3, LIPID #### [address] MCHC Auto (RBC) [Mass/Vol]Or dered By: Prem Goel on 09-18-2023 MCHC (RBC) [Mass/Vol] 31.9 g/dL 32.0-35.0 [facility] MCV [Entitic volume] by Auto mated countOrdered By: Prem Goel on 09-18-2023 MCV (RBC) [Entitic vol] 92.3 fL Normal 80-100 [facility] Comment on above: Performed By: #### C MP, CBC, TSH3, LIPID #### [facility] [address] Neutrophils [#/volume] in Bl ood by Automated countOrdered By: Prem Goel on 09-18-2023 Neutrophils (Bld) [#/Vol] 1.9 10*3/uL Normal 1.8-7.7 [facility] Comment on above: Performed By: #### C MP, CBC, TSH3, LIPID #### [facility] [address] No Panel InformationOrdered By: Prem Goel on 09-18-2023 Estimated GFR (CKD-EPI) > 60.0 mL/Min [facility] Creatinine Clearance (Chem N/A [facility] Nucleated erythrocytes [Pres ence] in Blood by Automated countOrdered By: Prem Goel on 09-18-2023 Nucleated RBC Auto Ql (Bld) 0.2 /100{WBC} 0-0.5 [facility] Platelet mean volume [Entiti c volume] in Blood by Automated countOrdered By: Prem Goel on 09-18-2023 Platelet mean volume (Bld) [Entitic vol] 10.4 fL Normal 6.3-10.7 [facility] Comment on above: Performed By: #### C MP, CBC, TSH3, LIPID #### [facility] [address] Platelets [#/volume] in Bloo d by Automated countOrdered By: Prem Goel on 09-18-2023 Platelets (Bld) [#/Vol] 230 10*3/uL Normal 150-450 [facility] Comment on above: Performed By: #### C MP, CBC, TSH3, LIPID #### [facility] [address] Potassium [Moles/volume] in Serum or PlasmaOrdered By: Prem Goel on 09-18-2023 Potassium [Moles/Vol] 4.2 mmol/L Normal 3.5-5.1 [facility] Comment on above: Order Comment: Reaso n for Exam Hyperlipidemia Performed By: #### C MP, CBC, TSH3, LIPID #### [facility] [address] Protein [Mass/volume] in Ser um or PlasmaOrdered By: Prem Goel on 09-18-2023 Protein [Mass/Vol] 6.4 g/dL Normal 6.4-8.9 [facility] Comment on above: Order Comment: Reaso n for Exam Hyperlipidemia Performed By: #### C MP, CBC, TSH3, LIPID #### [facility] [address] Serum globulin measurement b y calculation (mass/volume)Ordered By: Prem Goel on 09-18-2023 Globulin (S) [Mass/Vol] 2.4 g/dL Normal [facility] Comment on above: Order Comment: Reaso n for Exam Hyperlipidemia Performed By: #### C MP, CBC, TSH3, LIPID #### [facility] [address] [place] [address] Serum or plasma albumin/glob ulin mass ratioOrdered By: Prem Goel on 09-18-2023 Albumin/Globulin [Mass ratio] 1.7 {ratio} Normal [facility] Comment on above: Order Comment: Reaso n for Exam Hyperlipidemia Performed By: #### C MP, CBC, TSH3, LIPID #### [facility] [address] Serum or plasma anion gap de terminationOrdered By: Prem Goel on 09-18-2023 Anion gap [Moles/Vol] 12.3 mmol/L Normal 6.0-15.0 [facility] Comment on above: Order Comment: Reaso n for Exam Hyperlipidemia Performed By: #### C MP, CBC, TSH3, LIPID #### [facility] [address] Serum or plasma high density lipoprotein (HDL) cholesterol measurementOrdered By: Prem Goel on 09-18-2023 Cholesterol in HDL [Mass/Vol] 69 mg/dL Normal 23-92 [facility] Comment on above: HDL CHOL ATP-III CLA SSIFICATION Cardiovascular RiskHDL > or equal to 60 mg/dL LOWHDL < 40 mg/dL HIGH Order Comment: Reaso n for Exam Hyperlipidemia Result Comment: HDL CHOL ATP-III CLASSIFICATION Cardiovascular Risk HDL > or equal to 60 mg/dL LOW HDL < 40 mg/dL HIGH Performed By: #### C MP, CBC, TSH3, LIPID #### [facility] [address] Serum or plasma total choles terol/high density lipoprotein (HDL) cholesterol mass ratOrdered By: Prem Goel on 09-18-2023 Cholesterol.total/Araceli sterol in HDL [Mass ratio] 4.2 {ratio} Normal <5.0 [facility] Comment on above: Order Comment: Reaso n for Exam Hyperlipidemia Performed By: #### C MP, CBC, TSH3, LIPID #### [facility] [address] [place] [address] Sodium [Moles/volume] in Ser um or PlasmaOrdered By: Prem Goel on 09-18-2023 Sodium [Moles/Vol] 141 mmol/L Normal 136-145 [facility] Comment on above: Order Comment: Reaso n for Exam Hyperlipidemia Performed By: #### C MP, CBC, TSH3, LIPID #### [facility] [address] [place] [address] Thyrotropin [Units/volume] i n Serum or PlasmaOrdered By: Prem Goel on 09-18-2023 TSH Qn 2.60 m[IU]/L Normal 0.45-5.33 [facility] Comment on above: Order Comment: Reaso n for Exam Hyperlipidemia Result Comment: PERF ORMED BY: [place] [address] PATHOLOGIST [employer] BEV TALBERT M.D. Performed By: #### C MP, CBC, TSH3, LIPID #### [facility] [address] [place] [address] Triglyceride [Mass/volume] i n Serum or PlasmaOrdered By: Prem Goel on 09-18-2023 Triglyceride [Mass/Vol] 116 mg/dL 0-149 [facility] Comment on above: TRIG ATP III CLASSIF ICATIONTRIG less than 150 mg/dL NormalTRIG 150-199 mg/dL Borderline highTRIG 200-500 mg/dL High TRIG greater than 500 mg/dL Very highStandard traceable to the Center for Disease Conrtrol and Prevention (CDC) test method. Urea nitrogen [Mass/volume] in Serum or PlasmaOrdered By: Prem Goel on 09-18-2023 Urea nitrogen [Mass/Vol] 17 mg/dL Normal 7-25 [facility] Comment on above: Order Comment: Reaso n for Exam Hyperlipidemia Performed By: #### C MP, CBC, TSH3, LIPID #### [facility] [address] Basophils Auto (Bld) [#/Vol] on 08-07-2023 Basophils (Bld) [#/Vol] 0.0 10 3/uL 0.0-0.1 [facility] Basophils/100 WBC Auto (Bld) on 08-07-2023 Basophils/100 WBC (Bld) 0.5 % 0.2-2.0 [facility] Eosinophils/100 WBC Auto (Bl d)on 08-07-2023 Eosinophils/100 WBC (Bld) 1.1 % 0.9-7.0 [facility] Erythrocyte distribution wid th Auto (RBC) [Ratio]on 08-07-2023 Erythrocyte distribution width (RBC) [Ratio] 12.6 % 11.0-15.0 [facility] Estimated glomerular filtrat ion rate (GFR) non- Americanon 08-07-2023 GFR/1.73 sq M.predicted among non-blacks MDRD (S/P/Bld) [Vol rate/Area] mL/min/{1.73_m2} >=60 [facility] Globulin Calc (S) [Mass/Vol] on 08-07-2023 Globulin (S) [Mass/Vol] 3.8 g/dL F [facility] Hematocrit Auto (Bld) [Volum e fraction]on 08-07-2023 Hematocrit (Bld) [Volume fraction] 48.4 % 36.0-48.0 [facility] Hemoglobin [Mass/volume] in Bloodon 08-07-2023 Hemoglobin (Bld) [Mass/Vol] 15.4 g/dL 12.0-16.0 [facility] - Chemistry and C hemistry - challengeon 08-07-2023 Albumin [Mass/Vol] 3.4 g/dL 3.4-5.0 [facility] ALP [Catalytic activity/Vol] 118 U/L 46-116 [facility] ALT [Catalytic activity/Vol] 23 U/L 14-59 [facility] AST [Catalytic activity/Vol] 20 U/L 15-37 [facility] Bilirubin [Mass/Vol] 0.4 mg/dL 0.2-1.0 [facility] Calcium [Mass/Vol] 9.4 mg/dL 8.5-10.1 [facility] Chloride [Moles/Vol] 106 mmol/L 98-107 [facility] CO2 [Moles/Vol] 28.0 mmol/L 21.0-32.0 [facility] Creatinine [Mass/Vol] 0.80 mg/dL 0.55-1.02 [facility] GFR/1.73 sq M.predicted MDRD (S/P/Bld) [Vol rate/Area] mL/min/{1.73_m2} >=60 [facility] Glucose [Mass/Vol] 121 mg/dL 74-106 [facility] Potassium [Moles/Vol] 3.9 mmol/L 3.5-5.1 [facility] Protein [Mass/Vol] 7.2 g/dL 6.4-8.2 [facility] Sodium [Moles/Vol] 142 mmol/L 136-145 [facility] Urea nitrogen [Mass/Vol] 20.0 mg/dL 7.0-18.0 [facility] Urea nitrogen/Creatinine [Mass ratio] 25.0 mg/mg [facility] - Hematology and Cell countson 08-07-2023 Immature granulocytes/100 WBC (Bld) 0.3 % 0.0-0.5 [facility] Leukocytes [#/volume] correc guillermina for nucleated erythrocytes in Blood by Automated counon 08-07-2023 WBC corrected for nucl RBC Auto (Bld) [#/Vol] 7.5 10 3/uL 4.0-11.0 [facility] Lymphocytes Auto (Bld) [#/Vo l]on 08-07-2023 Lymphocytes (Bld) [#/Vol] 3.4 10 3/uL 1.2-3.8 [facility] Lymphocytes/100 WBC Auto (Bl d)on 08-07-2023 Lymphocytes/100 WBC (Bld) 45.6 % 20.5-60.0 [facility] MCH Auto (RBC) [Entitic mass ]on 08-07-2023 MCH (RBC) [Entitic mass] 29.7 pg 26.7-34.0 [facility] MCHC Auto (RBC) [Mass/Vol]on 08-07-2023 MCHC (RBC) [Mass/Vol] 31.8 g/dL 29.9-35.2 [facility] MCV Auto (RBC) [Entitic vol] on 08-07-2023 MCV (RBC) [Entitic vol] 93.3 fL 81.0-99.0 [facility] Monocytes Auto (Bld) [#/Vol] on 08-07-2023 Monocytes (Bld) [#/Vol] 0.7 10 3/uL 0.3-0.8 [facility] Monocytes/100 WBC Auto (Bld) on 08-07-2023 Monocytes/100 WBC (Bld) 8.6 % 1.7-12.0 [facility] Neutrophils Auto (Bld) [#/Vo l]on 08-07-2023 Neutrophils (Bld) [#/Vol] 3.3 10 3/uL 1.4-6.5 [facility] Neutrophils/100 WBC Auto (Bl d)on 08-07-2023 Neutrophils/100 WBC (Bld) 43.9 % 43.0-75.0 [facility] No Panel Informationon 08-06 Eosinophils # (Auto) 0.1 10 3/uL 0.0-0.7 [facility] Immature Granulocyte # (Auto) 0.02 10 3/uL 0.00-0.03 [facility] Platelet mean volume Auto (B ld) [Entitic vol]on 08-07-2023 Platelet mean volume (Bld) [Entitic vol] 12.5 fL 9.5-13.5 [facility] Platelets Auto (Bld) [#/Vol] on 08-07-2023 Platelets (Bld) [#/Vol] 238 10 3/uL 150-450 [facility] RBC Auto (Bld) [#/Vol]on RBC (Bld) [#/Vol] 5.19 10 6/uL 4.20-5.40 [facility] Serum or plasma albumin/glob ulin mass ratioon 08-07-2023 Albumin/Globulin [Mass ratio] 0.9 {ratio} [facility] Serum or plasma anion gap de terminationon 08-07-2023 Anion gap [Moles/Vol] 11.9 mmol[facility] Alanine aminotransferase [En zymatic activity/volume] in Serum or PlasmaOrdered By: Prem Goel on 03-12-2023 ALT [Catalytic activity/Vol] 11 U/L 7-52 [facility] Albumin [Mass/volume] in Ser um or Plasma by Bromocresol green (BCG) dye binding methoOrdered By: Prem Goel on 03-12-2023 Albumin BCG dye [Mass/Vol] 3.9 g/dL 3.5-5.7 [facility] Alkaline phosphatase [Enzyma tic activity/volume] in Serum or PlasmaOrdered By: Prem Goel on 03-12-2023 ALP [Catalytic activity/Vol] 89 U/L 34-104 [facility] Aspartate aminotransferase [ Enzymatic activity/volume] in Serum or PlasmaOrdered By: Prem Goel on 03-12-2023 AST [Catalytic activity/Vol] 15 U/L 13-39 [facility] Basophils Auto (Bld) [#/Vol] Ordered By: Prem Goel on 03-12-2023 Basophils (Bld) [#/Vol] 0.0 10*3/uL 0.0-0.2 [facility] Basophils/100 WBC Auto (Bld) Ordered By: Prem Goel on 03-12-2023 Basophils/100 WBC (Bld) 0.7 % . [facility] Bilirubin.total [Mass/volume ] in Serum or PlasmaOrdered By: Prem Goel on 03-12-2023 Bilirubin [Mass/Vol] 0.6 mg/dL 0.3-1.0 [facility] Calcium [Mass/volume] in Ser um or PlasmaOrdered By: Prem Goel on 03-12-2023 Calcium [Mass/Vol] 9.4 mg/dL 8.6-10.3 [facility] Carbon dioxide, total [Moles /volume] in Serum or PlasmaOrdered By: Prem Goel on 03-12-2023 CO2 [Moles/Vol] 28.2 mmol/L 21.0-31.0 [facility] Chloride [Moles/volume] in S dede or PlasmaOrdered By: Prem Goel on 03-12-2023 Chloride [Moles/Vol] 107 mmol/L 98-107 [facility] Cholesterol [Mass/volume] in Serum or PlasmaOrdered By: Prem Goel on 03-12-2023 Cholesterol [Mass/Vol] 228 mg/dL 140-200 [facility] Comment on above: Chol less than 200 m g/dl low riskChol 201-239 mg/dl borderline riskChol 240 mg/dl and greater high risk Cholesterol in LDL Calc [Mas s/Vol]Ordered By: Prem Goel on 03-12-2023 Cholesterol in LDL [Mass/Vol] 146 mg/dL 0-100 [facility] Comment on above: LDL ATP III CLASSIFI CATIONLDL less than 100 mg/dL OptimalLDL 100-129 mg/dL Near or above optimalLDL 130-159 mg/dL Borderline highLDL 160-189 mg/dL HighLDL greater than 189 mg/dL Very high Cholesterol in VLDL Calc [Ma ss/Vol]Ordered By: Prem Goel on 03-12-2023 Cholesterol in VLDL [Mass/Vol] 15 mg/dL [facility] Creatinine [Mass/volume] in Serum or PlasmaOrdered By: Prem Goel on 03-12-2023 Creatinine [Mass/Vol] 0.77 mg/dL 0.60-1.20 [facility] Eosinophils Auto (Bld) [#/Vo l]Ordered By: Prem Goel on 03-12-2023 Eosinophils (Bld) [#/Vol] 0.1 10*3/uL 0.0-0.45 [facility] Eosinophils/100 WBC Auto (Bl d)Ordered By: Prem Goel on 03-12-2023 Eosinophils/100 WBC (Bld) 2.3 % . [facility] Erythrocyte distribution wid th Auto (RBC) [Ratio]Ordered By: Prem Goel on 03-12-2023 Erythrocyte distribution width (RBC) [Ratio] 12.9 % 11.9-15.3 [facility] Globulin Calc (S) [Mass/Vol] Ordered By: Prem Goel on 03-12-2023 Globulin (S) [Mass/Vol] 2.2 g/dL F [facility] Glucose [Mass/volume] in Ser um or PlasmaOrdered By: Prem Goel on 03-12-2023 Glucose [Mass/Vol] 96 mg/dL 70-100 [facility] Comment on above: ADA recommended refe rence rangeRandom Glucose Reference Range is dependent on time and content of last meal. Glucose of more than 200 mg/dL in a nonstressed, ambulatory subject supports the diagnosis of Diabetes Mellitus. Hematocrit Auto (Bld) [Volum e fraction]Ordered By: Prem Goel on 03-12-2023 Hematocrit (Bld) [Volume fraction] 45.2 % 34.0-46.4 [facility] Hemoglobin [Mass/volume] in BloodOrdered By: Prem Goel on 03-12-2023 Hemoglobin (Bld) [Mass/Vol] 14.9 g/dL 11.8-15.4 [facility] Leukocytes [#/volume] correc guillermina for nucleated erythrocytes in Blood by Automated counOrdered By: Prem Goel on 03-12-2023 WBC corrected for nucl RBC Auto (Bld) [#/Vol] 6.1 10*3/uL 3.8-11.6 [facility] Lymphocytes Auto (Bld) [#/Vo l]Ordered By: Prem Goel on 03-12-2023 Lymphocytes (Bld) [#/Vol] 2.6 10*3/uL 1.00-4.8 [facility] Lymphocytes/100 WBC Auto (Bl d)Ordered By: Prem Goel on 03-12-2023 Lymphocytes/100 WBC (Bld) 42.3 % . [facility] MCH Auto (RBC) [Entitic mass ]Ordered By: Prem Goel on 03-12-2023 MCH (RBC) [Entitic mass] 29.8 pg 24.7-34.3 [facility] MCHC Auto (RBC) [Mass/Vol]Or dered By: Prem Goel on 03-12-2023 MCHC (RBC) [Mass/Vol] 33.0 g/dL 32.0-35.0 [facility] MCV Auto (RBC) [Entitic vol] Ordered By: Prem Goel on 03-12-2023 MCV (RBC) [Entitic vol] 90.5 fL 80-100 [facility] Monocytes Auto (Bld) [#/Vol] Ordered By: Prem Goel on 03-12-2023 Monocytes (Bld) [#/Vol] 0.6 10*3/uL 0.0-0.8 [facility] Monocytes/100 WBC Auto (Bld) Ordered By: Prem Goel on 03-12-2023 Monocytes/100 WBC (Bld) 9.1 % . [facility] Neutrophils Auto (Bld) [#/Vo l]Ordered By: Prem Goel on 03-12-2023 Neutrophils (Bld) [#/Vol] 2.8 10*3/uL 1.8-7.7 [facility] Neutrophils/100 WBC Auto (Bl d)Ordered By: Prem Goel on 03-12-2023 Neutrophils/100 WBC (Bld) 45.6 % . [facility] No Panel InformationOrdered By: Prem Goel on 03-12-2023 Estimated GFR (CKD-EPI) > 60.0 mL/Min [facility] Creatinine Clearance (Chem N/A [facility] Nucleated erythrocytes [Pres ence] in Blood by Automated countOrdered By: Prem Goel on 03-12-2023 Nucleated RBC Auto Ql (Bld) 0.1 /100{WBC} 0-0.5 [facility] Platelet mean volume Auto (B ld) [Entitic vol]Ordered By: Prem Goel on 03-12-2023 Platelet mean volume (Bld) [Entitic vol] 10.2 fL 6.3-10.7 [facility] Platelets Auto (Bld) [#/Vol] Ordered By: Prem Goel on 03-12-2023 Platelets (Bld) [#/Vol] 201 10*3/uL 150-450 [facility] Potassium [Moles/volume] in Serum or PlasmaOrdered By: Prem Goel on 03-12-2023 Potassium [Moles/Vol] 4.3 mmol/L 3.5-5.1 [facility] Protein [Mass/volume] in Ser um or PlasmaOrdered By: Prem Goel on 03-12-2023 Protein [Mass/Vol] 6.1 g/dL 6.4-8.9 [facility] RBC Auto (Bld) [#/Vol]Ordere d By: rPem Goel on 03-12-2023 RBC (Bld) [#/Vol] 4.99 10*6/uL 3.60-5.00 [facility] Serum or plasma albumin/glob ulin mass ratioOrdered By: Prem Goel on 03-12-2023 Albumin/Globulin [Mass ratio] 1.8 {ratio} [facility] Serum or plasma anion gap de terminationOrdered By: Prem Goel on 03-12-2023 Anion gap [Moles/Vol] 10.1 mmol/L 6.0-15.0 [facility] Serum or plasma high density lipoprotein (HDL) cholesterol measurementOrdered By: rPem Goel on 03-12-2023 Cholesterol in HDL [Mass/Vol] 66 mg/dL 23-92 [facility] Comment on above: HDL CHOL ATP-III CLA SSIFICATION Cardiovascular RiskHDL > or equal to 60 mg/dL LOWHDL < 40 mg/dL HIGH Serum or plasma total choles terol/high density lipoprotein (HDL) cholesterol mass ratOrdered By: Prem Goel on 03-12-2023 Cholesterol.total/Araceli sterol in HDL [Mass ratio] 3.5 {ratio} <5.0 [facility] Sodium [Moles/volume] in Ser um or PlasmaOrdered By: Prem Goel on 03-12-2023 Sodium [Moles/Vol] 141 mmol/L 136-145 [facility] Thyrotropin [Units/volume] i n Serum or PlasmaOrdered By: Prem Goel on 03-12-2023 TSH Qn 1.91 m[IU]/L 0.45-5.33 [facility] Triglyceride [Mass/volume] i n Serum or PlasmaOrdered By: Prem Goel on 03-12-2023 Triglyceride [Mass/Vol] 78 mg/dL 0-149 [facility] Comment on above: TRIG ATP III CLASSIF ICATIONTRIG less than 150 mg/dL NormalTRIG 150-199 mg/dL Borderline highTRIG 200-500 mg/dL High TRIG greater than 500 mg/dL Very highStandard traceable to the Center for Disease Conrtrol and Prevention (CDC) test method. Urea nitrogen [Mass/volume] in Serum or PlasmaOrdered By: Prem Goel on 03-12-2023 Urea nitrogen [Mass/Vol] 18 mg/dL 7-25 [facility] WBC Auto (Bld) [#/Vol]Ordere d By: Prem Goel on 03-12-2023 WBC (Bld) [#/Vol] 6.1 10*3/uL 3.8-11.6 [facility] Albumin [Mass/volume] in Ser um or PlasmaOrdered By: Prem Goel on 04-29-2022 Albumin [Mass/Vol] 3.4 g/dL 3.2-5.5 [facility] Basophils Auto (Bld) [#/Vol] Ordered By: Prem Goel on 04-29-2022 Basophils (Bld) [#/Vol] 0.0 10*3/uL 0.0-0.2 [facility] Basophils/100 WBC Auto (Bld) Ordered By: Prem Goel on 04-29-2022 Basophils/100 WBC (Bld) 0.3 % . F [facility] Cholesterol [Mass/volume] in Serum or PlasmaOrdered By: Prem Goel on 04-29-2022 Cholesterol [Mass/Vol] 196 mg/dL 140-200 [facility] Comment on above: Chol less than 200 m g/dl low riskChol 201-239 mg/dl borderline riskChol 240 mg/dl and greater high risk Cholesterol in LDL Calc [Mas s/Vol]Ordered By: Prem Goel on 04-29-2022 Cholesterol in LDL [Mass/Vol] 109 mg/dL 0-100 [facility] Comment on above: LDL ATP III CLASSIFI CATIONLDL less than 100 mg/dL OptimalLDL 100-129 mg/dL Near or above optimalLDL 130-159 mg/dL Borderline highLDL 160-189 mg/dL HighLDL greater than 189 mg/dL Very high Cholesterol in VLDL Calc [Ma ss/Vol]Ordered By: Prem Goel on 04-29-2022 Cholesterol in VLDL [Mass/Vol] 10 mg/dL [facility] Creatinine and Glomerular fi ltration rate.predicted panel (S/P/Bld)Ordered By: Prem Goel on 04-29-2022 Creatinine [Mass/Vol] 0.80 mg/dL 0.44-1.03 [facility] Eosinophils Auto (Bld) [#/Vo l]Ordered By: Prem Goel on 04-29-2022 Eosinophils (Bld) [#/Vol] 0.1 10*3/uL 0.0-0.45 [facility] Eosinophils/100 WBC Auto (Bl d)Ordered By: Prem Goel on 04-29-2022 Eosinophils/100 WBC (Bld) 0.5 % . [facility] Erythrocyte distribution wid th Auto (RBC) [Ratio]Ordered By: Prem Goel on 04-29-2022 Erythrocyte distribution width (RBC) [Ratio] 13.4 % 11.9-15.3 [facility] Estimated glomerular filtrat ion rate (GFR) non- AmericanOrdered By: Prem Goel on 04-29-2022 GFR/1.73 sq M.predicted among non-blacks MDRD (S/P/Bld) [Vol rate/Area] > 60 mL/Min [facility] Globulin Calc (S) [Mass/Vol] Ordered By: Prem Goel on 04-29-2022 Globulin (S) [Mass/Vol] 3.3 g/dL F [facility] Hematocrit Auto (Bld) [Volum e fraction]Ordered By: Prem Goel on 04-29-2022 Hematocrit (Bld) [Volume fraction] 46.2 % 34.0-46.4 [facility] Hemoglobin [Mass/volume] in BloodOrdered By: Prem Goel on 04-29-2022 Hemoglobin (Bld) [Mass/Vol] 14.9 g/dL 11.8-15.4 [facility] Laboratory - Hematology and Cell countsOrdered By: Prem Goel on 04-29-2022 Nucleated RBC/100 WBC (Bld) [Ratio] 0.0 % 0-0.5 [facility] Leukocytes [#/volume] in Blo od by Automated countOrdered By: Prem Goel on 04-29-2022 WBC (Bld) [#/Vol] 10.7 10*3/uL 4.5-11.0 [facility] Lymphocytes Auto (Bld) [#/Vo l]Ordered By: Prem Goel on 04-29-2022 Lymphocytes (Bld) [#/Vol] 1.9 10*3/uL 1.00-4.8 [facility] Lymphocytes/100 WBC Auto (Bl d)Ordered By: Prem Goel on 04-29-2022 Lymphocytes/100 WBC (Bld) 17.7 % . [facility] MCH Auto (RBC) [Entitic mass ]Ordered By: Prem Goel on 04-29-2022 MCH (RBC) [Entitic mass] 30.0 pg 24.7-34.3 [facility] MCHC Auto (RBC) [Mass/Vol]Or dered By: Prem Goel on 04-29-2022 MCHC (RBC) [Mass/Vol] 32.1 g/dL 32.0-35.0 [facility] MCV Auto (RBC) [Entitic vol] Ordered By: Prem Goel on 04-29-2022 MCV (RBC) [Entitic vol] 93.4 fL 80-100 [facility] Monocytes Auto (Bld) [#/Vol] Ordered By: Prem Goel on 04-29-2022 Monocytes (Bld) [#/Vol] 1.1 10*3/uL 0.0-0.8 [facility] Monocytes/100 WBC Auto (Bld) Ordered By: Prem Goel on 04-29-2022 Monocytes/100 WBC (Bld) 10.4 % . [facility] Neutrophils Auto (Bld) [#/Vo l]Ordered By: Prem Goel on 04-29-2022 Neutrophils (Bld) [#/Vol] 7.6 10*3/uL 1.8-7.7 [facility] Neutrophils/100 WBC Auto (Bl d)Ordered By: Prem Goel on 04-29-2022 Neutrophils/100 WBC (Bld) 71.1 % . [facility] No Panel InformationOrdered By: Prem Goel on 04-29-2022 Estimated GFR () > 60 mL/Min [facility] Comment on above: GFR estimated refere nce range: According to KDOQI guidelines, <60 ml/min/1.73m2 is sufficient to diagnose a patient with chronic kidney disease. Pharmacy Creatinine Clearance (Chem N/A [facility] Platelet mean volume Auto (B ld) [Entitic vol]Ordered By: Prem Goel on 04-29-2022 Platelet mean volume (Bld) [Entitic vol] 10.2 fL 6.3-10.7 [facility] Platelets Auto (Bld) [#/Vol] Ordered By: Prem Goel on 04-29-2022 Platelets (Bld) [#/Vol] 238 10*3/uL 150-450 [facility] Protein [Mass/volume] in Ser um or PlasmaOrdered By: Prem Goel on 04-29-2022 Protein [Mass/Vol] 6.7 g/dL 6.1-7.9 [facility] RBC Auto (Bld) [#/Vol]Ordere d By: Prem Goel on 04-29-2022 RBC (Bld) [#/Vol] 4.95 10*6/uL 3.60-5.00 [facility] Serum or plasma alanine tobias otransferase measurement without P-5'-P (enzymatic activiOrdered By: Prem Goel on 04-29-2022 ALT No additional P-5'-P [Catalytic activity/Vol] 18 U/L 10-60 [facility] Serum or plasma albumin/glob ulin mass ratioOrdered By: Prem Goel on 04-29-2022 Albumin/Globulin [Mass ratio] 1.0 {ratio} [facility] Serum or plasma alkaline joshua sphatase measurement (enzymatic activity/volume)Ordered By: Prem Goel on 04-29-2022 ALP [Catalytic activity/Vol] 100 U/L 32-92 [facility] Serum or plasma anion gap de terminationOrdered By: Prem Goel on 04-29-2022 Anion gap [Moles/Vol] 10.5 mmol/L 6.0-15.0 [facility] Serum or plasma aspartate am inotransferase measurement (enzymatic activity/volume)Ordered By: Prem Goel on 04-29-2022 AST [Catalytic activity/Vol] 19 U/L 10-42 [facility] Serum or plasma calcium erica urement (mass/volume)Ordered By: Prem Goel on 04-29-2022 Calcium [Mass/Vol] 9.2 mg/dL 8.2-10.2 [facility] Serum or plasma chloride omaira surement (moles/volume)Ordered By: Prem Goel on 04-29-2022 Chloride [Moles/Vol] 102 mmol/L 95-114 [facility] Serum or plasma glucose erica urement (mass/volume)Ordered By: Prem Goel on 04-29-2022 Glucose [Mass/Vol] 111 mg/dL 70-100 [facility] Comment on above: ADA recommended refe rence rangeRandom Glucose Reference Range is dependent on time and content of last meal. Glucose of more than 200 mg/dL in a nonstressed, ambulatory subject supports the diagnosis of Diabetes Mellitus. Serum or plasma high density lipoprotein (HDL) cholesterol measurementOrdered By: Prem Goel on 04-29-2022 Cholesterol in HDL [Mass/Vol] 76 mg/dL 35-85 [facility] Comment on above: HDL CHOL ATP-III CLA SSIFICATION Cardiovascular RiskHDL > or equal to 60 mg/dL LOWHDL < 40 mg/dL HIGH Serum or plasma potassium me asurement (moles/volume)Ordered By: Prem Goel on 04-29-2022 Potassium [Moles/Vol] 4.0 mmol/L 3.5-5.1 [facility] Serum or plasma sodium measu rement (moles/volume)Ordered By: Prem Goel on 04-29-2022 Sodium [Moles/Vol] 137 mmol/L 136-146 [facility] Serum or plasma total biliru bin measurement (mass/volume)Ordered By: Prem Goel on 04-29-2022 Bilirubin [Mass/Vol] 0.8 mg/dL 0.3-1.2 [facility] Serum or plasma total carbon dioxide measurement (moles/volume)Ordered By: Prem Goel on 04-29-2022 CO2 [Moles/Vol] 28.5 mmol/L 22.0-30.0 [facility] Serum or plasma total choles terol/high density lipoprotein (HDL) cholesterol mass ratOrdered By: Prem Goel on 04-29-2022 Cholesterol.total/Araceli sterol in HDL [Mass ratio] 2.6 {ratio} <5.0 [facility] Serum or plasma urea nitroge n measurement (mass/volume)Ordered By: Prem Goel on 04-29-2022 Urea nitrogen [Mass/Vol] 14 mg/dL 02-28 [facility] TSH DL <= 0.005 mIU/L QnOrde red By: Prem Goel on 04-29-2022 TSH Qn 1.74 m[IU]/L 0.45-5.33 [facility] Triglyceride [Mass/volume] i n Serum or PlasmaOrdered By: Prem Goel on 04-29-2022 Triglyceride [Mass/Vol] 53 mg/dL 35-149 [facility] Comment on above: TRIG ATP III CLASSIF ICATIONTRIG less than 150 mg/dL NormalTRIG 150-199 mg/dL Borderline highTRIG 200-500 mg/dL High TRIG greater than 500 mg/dL Very highStandard traceable to the Center for Disease Conrtrol and Prevention (CDC) test method. A1C HEMOGLOBINon 04-30-2021 HbA1c (Bld) [Mass fraction] 5.8 % [facility] Other HbA1c (Bld) [Mass fraction]o n 04-30-2021 A1C HEMOGLOBIN [place] [facility] Other [facility] CARDIAC STRESS/REST ([facility] CARDIAL PERFUSION/MIBI)on 04-09-2020 [facility] CARDIAC STRESS/REST (MYOCARDIAL PERFUSION/MIBI) N: [id number] Patient Name: MARY WILKERSON STUDY: MYOCARDIAL PERFUSION STRESS TEST WITH LEXISCAN Performing facility: [facility], [address] [place] [address], [address], [place] [address] [facility] Provider: WP SMYTH PCP: Dr. PREM GOEL Supervising provider: WP SMYTH INDICATION: CP HISTORY: Gender: F; Age: 84 y/o ; Height: 157.48 cm; Weight: 78.3309244 kg. High Cholesterol; CP Family HX CAD; Denies smoking. COMPARISON: Previous nuclear testing completed at [facility]. ACCESSION NUMBER(S): [id number] ORDERING CLINICIAN: MATT SMYTH TECHNIQUE: ONE DAY [...] Electronically signed by: BRIELLE DUVAL MD Normal [facility] CARDIAC STRESS/REST INJE CTIONon 04-09-2020 [facility] CARDIAC STRESS/REST INJECTION Patient Name: MARY WILKERSON STUDY: MYOCARDIAL PERFUSION STRESS TEST WITH LEXISCAN Performing facility: [facility], [address] [place] [address], [address], [place] [address] [facility] Provider: WP SMYTH PCP: Dr. PREM GOEL Supervising provider: WP SMYTH INDICATION: CP HISTORY: Gender: F; Age: 84 y/o ; Height: 157.48 cm; Weight: 78.2261172 kg. High Cholesterol; CP Family HX CAD; Denies smoking. COMPARISON: Previous nuclear testing completed [id number] at [facility]. ACCESSION NUMBER(S): [id number] ORDERING CLINICIAN: MATT SMYTH TECHNIQUE: ONE DAY [...] comparison. Electronically signed by: BRIELLE DUVAL MD [facility] PART 2 STRESS OR REST (N O CHARGE)on 04-09-2020 [facility] PART 2 STRESS OR REST (NO CHARGE) Patient Name: MARY WILKERSON STUDY: MYOCARDIAL PERFUSION STRESS TEST WITH LEXISCAN Performing facility: [facility], [address] [place] [address], [address], [place] [address] [facility] Provider: WP SMYTH PCP: Dr. PREM GOEL Supervising provider: WP SMYTH INDICATION: CP HISTORY: Gender: F; Age: 84 y/o ; Height: 157.48 cm; Weight: 78.8781090 kg. High Cholesterol; CP Family HX CAD; Denies smoking. COMPARISON: Previous nuclear testing completed at [facility]. ACCESSION NUMBER(S): [id number] ORDERING CLINICIAN: MATT SMYTH TECHNIQUE: ONE DAY [...] Electronically signed by: BRIELLE DUVAL MD Normal [facility] Vital Signs Date Time Vital Sign Value Performing Clinician Facility 09-06-2024 13:46-0400 Body height 1554.48 cm [facility] 09-06-2024 13:46-0400 Body mass index (BMI) [Ratio] 0.3 kg/m2 [facility] 09-06-2024 13:46-0400 Body temperature 97.1 [degF] [facility] 09-06-2024 13:46-0400 Body weight 72.6 kg [facility] 09-06-2024 13:46-0400 Diastolic blood pressure 98 mm[Hg] [facility] 09-06-2024 13:46-0400 Heart rate 69 /min [facility] 09-06-2024 13:46-0400 Respiratory rate 19 /min [facility] 09-06-2024 13:46-0400 SaO2% (BldA) [Mass fraction] 69 % [facility] 09-06-2024 13:46-0400 Systolic blood pressure 145 mm[Hg] [facility] 04-04-2024 08:12-0400 Body height 154.94 cm DO Prem Kuns Work Phone: [facility] 04-04-2024 08:12-0400 Body mass index (BMI) [Ratio] 30.2 kg/m2 DO Prem Kuns Work Phone: [facility] 04-04-2024 08:12-0400 Body weight 72.57 kg DO Prem Kuns Work Phone: [facility] 04-04-2024 08:12-0400 Diastolic blood pressure 80 mm[Hg] DO Prem Kuns Work Phone: [facility] 04-04-2024 08:12-0400 Heart rate 65 /min DO Prem Kuns Work Phone: [facility] 04-04-2024 08:12-0400 Respiratory rate 16 /min DO Prem Kuns Work Phone: [facility] 04-04-2024 08:12-0400 SaO2% (BldA) [Mass fraction] 97 % DO Prem Kuns Work Phone: [facility] 04-04-2024 08:12-0400 Systolic blood pressure 118 mm[Hg] DO Prem Kuns Work Phone: [facility] 12-29-2023 10:06-0400 Body height 154.94 cm DO Prem Kuns Work Phone: [facility] 12-29-2023 10:06-0400 Body mass index (BMI) [Ratio] 30.2 kg/m2 DO Prem Kuns Work Phone: [facility] 12-29-2023 10:06-0400 Body weight 72.57 kg DO Prem Kuns Work Phone: [facility] 12-29-2023 10:06-0400 Diastolic blood pressure 80 mm[Hg] DO Prem Kuns Work Phone: [facility] 12-29-2023 10:06-0400 Heart rate 56 /min DO Prem Kuns Work Phone: [facility] 12-29-2023 10:06-0400 Respiratory rate 16 /min DO Prem Kuns Work Phone: [facility] 12-29-2023 10:06-0400 SaO2% (BldA) [Mass fraction] 96 % DO Prem Kuns Work Phone: [facility] 12-29-2023 10:06-0400 Systolic blood pressure 124 mm[Hg] DO Prem Kuns Work Phone: [facility] 09-24-2023 09:41-0400 Body height 154.94 cm DO Prem Kuns Work Phone: [facility] 09-24-2023 09:41-0400 Body mass index (BMI) [Ratio] 30.9 kg/m2 DO Prem Kuns Work Phone: [facility] 09-24-2023 09:41-0400 Body weight 74.38 kg DO Prem Kuns Work Phone: [facility] 09-24-2023 09:41-0400 Diastolic blood pressure 80 mm[Hg] DO Prem Kuns Work Phone: [facility] 09-24-2023 09:41-0400 Heart rate 57 /min DO Prem Kuns Work Phone: [facility] 09-24-2023 09:41-0400 Respiratory rate 16 /min DO Prem Kuns Work Phone: [facility] 09-24-2023 09:41-0400 SaO2% (BldA) [Mass fraction] 92 % DO Prem Kuns Work Phone: [facility] 09-24-2023 09:41-0400 Systolic blood pressure 138 mm[Hg] DO Prem Kuns Work Phone: [facility] 03-17-2023 08:45-0400 Body height 154.94 cm Prem [employer] Other [facility] Other 03-17-2023 08:45-0400 Body mass index (BMI) [Ratio] 30.98 kg/m2 Prem Raulitos Other [facility] Other 03-17-2023 08:45-0400 Body weight 74.39 kg Prem [employer] Other [facility] Other 03-17-2023 08:45-0400 Diastolic blood pressure 76 mm[Hg] Prem [employer] Other [facility] Other 03-17-2023 08:45-0400 Respiratory rate 16 /min Prem [employer] Other [facility] Other 03-17-2023 08:45-0400 SaO2% (BldA) [Mass fraction] 96 % Prem Kuns Other [facility] Other 03-17-2023 08:45-0400 Systolic blood pressure 120 mm[Hg] Prem Kuns Other [facility] Other 11-12-2022 14:45-0400 Body height 154.94 cm Prem Kuns Other [facility] Other 11-12-2022 14:45-0400 Body mass index (BMI) [Ratio] 31.36 kg/m2 Prem Kuns Other [facility] Other 11-12-2022 14:45-0400 Body weight 75.3 kg Prem Kuns Other [facility] Other 11-12-2022 14:45-0400 Diastolic blood pressure 68 mm[Hg] Prem Kuns Other [facility] Other 11-12-2022 14:45-0400 Respiratory rate 16 /min Prem Kuns Other [facility] Other 11-12-2022 14:45-0400 SaO2% (BldA) [Mass fraction] 93 % Prem Kuns Other [facility] Other 11-12-2022 14:45-0400 Systolic blood pressure 124 mm[Hg] Prem Kuns Other [facility] Other 01-28-2022 11:15-0400 Body height 154.94 cm Prem Kuns Other [facility] Other 01-28-2022 11:15-0400 Body mass index (BMI) [Ratio] 30.98 kg/m2 Prem Kuns Other [facility] Other 01-28-2022 11:15-0400 Body weight 74.39 kg Prem Kuns Other [facility] Other 01-28-2022 11:15-0400 Diastolic blood pressure 82 mm[Hg] Prem Kuns Other [facility] Other 01-28-2022 11:15-0400 Respiratory rate 18 /min Prem Kuns Other [facility] Other 01-28-2022 11:15-0400 SaO2% (BldA) [Mass fraction] 95 % Prem Kuns Other [facility] Other 01-28-2022 11:15-0400 Systolic blood pressure 142 mm[Hg] Prem Kuns Other [facility] Other 08-15-2021 14:45-0500 Body height 154.94 cm Prem Kuns Other [facility] Other 08-15-2021 14:45-0500 Body mass index (BMI) [Ratio] 30.04 kg/m2 Prem Kuns Other [facility] Other 08-15-2021 14:45-0500 Body weight 72.12 kg Prem Kuns Other [facility] Other 08-15-2021 14:45-0500 Diastolic blood pressure 80 mm[Hg] Prem Kuns Other [facility] Other 08-15-2021 14:45-0500 Respiratory rate 16 /min Prem Kuns Other [facility] Other 08-15-2021 14:45-0500 SaO2% (BldA) [Mass fraction] 99 % Prem Kuns Other [facility] Other 08-15-2021 14:45-0500 Systolic blood pressure 142 mm[Hg] Prem Kuns Other [facility] Other 04-30-2021 11:45-0500 Body height 154.94 cm Prem Kuns Other [facility] Other 04-30-2021 11:45-0500 Body mass index (BMI) [Ratio] 29.74 kg/m2 Prem Kuns Other [facility] Other 04-30-2021 11:45-0500 Body weight 71.4 kg Prem Kuns Other [facility] Other 04-30-2021 11:45-0500 Diastolic blood pressure 87 mm[Hg] Prem Kuns Other [facility] Other 04-30-2021 11:45-0500 Respiratory rate 18 /min Prem Kuns Other [facility] Other 04-30-2021 11:45-0500 SaO2% (BldA) [Mass fraction] 93 % Prem Kuns Other [facility] Other 04-30-2021 11:45-0500 Systolic blood pressure 136 mm[Hg] Prem Kuns Other [facility] Other 02-28-2021 11:15-0400 Body height 154.94 cm Premsaloni Cabezaseddie Other [facility] Other 02-28-2021 11:15-0400 Body mass index (BMI) [Ratio] 29.85 kg/m2 Premsaloni Cabezass Other [facility] Other 02-28-2021 11:15-0400 Body weight 71.67 kg Premsaloni Cabezass Other [facility] Other 02-28-2021 11:15-0400 Diastolic blood pressure 86 mm[Hg] Prem Raulitos Other [facility] Other 02-28-2021 11:15-0400 Respiratory rate 16 /min Premsaloni Cabezass Other [facility] Other 02-28-2021 11:15-0400 SaO2% (BldA) [Mass fraction] 97 % Prem Raulitos Other [facility] Other 02-28-2021 11:15-0400 Systolic blood pressure 134 mm[Hg] Premsaloni Cabezass Other [facility] Other Encounters Encounter Date Encounter Type Care Provider Facility Start: 09-06-2024 End: 09-06-2024 ambulatory [facility] Work Phone: Start: 09-06-2024 End: 09-06-2024 Patient encounter procedure [facility] [place] Work Phone: Start: 04-04-2024 End: 04-04-2024 ambulatory DO Prem Goel Work Phone: [facility] Work Phone: Start: 04-04-2024 End: 04-04-2024 Patient encounter procedure DO Prem Kuns Work Phone: [facility] [place] Work Phone: Start: 04-04-2024 End: 04-04-2024 ambulatory DO Prem Kuns Work Phone: [facility] Work Phone: Start: 04-04-2024 End: 04-04-2024 Patient encounter procedure DO Prem Kuns Work Phone: [facility] [place] Work Phone: Start: 03-30-2024 End: 03-30-2024 Patient encounter procedure DO Prem Kuns Work Phone: [facility] [place] Work Phone: Start: 03-30-2024 End: 03-30-2024 ambulatory DO Prem Kuns Work Phone: [facility] Work Phone: Start: 12-29-2023 End: 12-29-2023 ambulatory DO Prem Kuns Work Phone: [facility] Work Phone: Start: 12-29-2023 End: 12-29-2023 Patient encounter procedure DO Prem Kuns Work Phone: [facility] [place] Work Phone: Start: 10-12-2023 End: 10-12-2023 ambulatory DO Prem Kuns Work Phone: [facility] Work Phone: Start: 10-12-2023 End: 10-12-2023 Patient encounter procedure DO Prem Kuns Work Phone: [facility] [place] Work Phone: Start: 10-06-2023 End: 10-06-2023 Patient encounter procedure DO Prem Kuns Work Phone: [facility] Work Phone: Start: 10-06-2023 End: 10-06-2023 ambulatory DO Prem Kuns Work Phone: [facility] Work Phone: Start: 09-24-2023 End: 09-24-2023 ambulatory DO Prem Kuns Work Phone: [facility] Work Phone: Start: 09-24-2023 End: 09-24-2023 Patient encounter procedure DO Prem Kuns Work Phone: [facility] [place] Work Phone: Start: 09-18-2023 End: 09-18-2023 Patient encounter procedure DO Prem Kuns Work Phone: [facility] [place] Work Phone: Start: 09-18-2023 End: 09-18-2023 ambulatory DO Prem Kuns Work Phone: [facility] Work Phone: Start: 08-11-2023 Non-patient / Non-visit DO Prem Kuns Work Phone: [facility] Work Phone: Start: 08-07-2023 Non-patient / Non-visit DO Prem Kuns Work Phone: [facility] Work Phone: Start: 08-03-2023 Non-patient / Non-visit DO Prem Kuns Work Phone: [facility] Work Phone: Start: 05-27-2023 End: 05-27-2023 ambulatory Prem Kuns Other [facility] Other Start: 05-27-2023 Telephone encounter Prem Kuns [facility] Start: 03-17-2023 End: 03-17-2023 ambulatory Prem Kuns Other [facility] Other Start: 03-17-2023 Office outpatient visit 25 minutes Prem Kuns [facility] Start: 03-12-2023 End: 03-12-2023 ambulatory DO Prem Kuns Work Phone: [facility] Work Phone: Start: 03-12-2023 End: 03-12-2023 Patient encounter procedure DO Prem Kuns Work Phone: [facility] [place] Work Phone: Start: 01-30-2023 End: 01-30-2023 ambulatory Prem Raulitos Other [facility] Other Start: 01-30-2023 Telephone encounter Prem Raulitos [facility] Start: 11-12-2022 End: 11-12-2022 ambulatory Prem Raulitos Other [facility] Other Start: 11-12-2022 Office outpatient visit 25 minutes Prem Kuns [facility] Start: 11-04-2022 End: 11-04-[address] PREM GOEL Facility:[facility] Start: 11-04-2022 Telephone encounter Prem Raymon [facility] Start: 10-14-2022 End: 10-14-[address] [...] 05-06-2022 Annual wellness visit Prem arevalo Other [facility] Other Start: 04-29-2022 End: 04-29-2022 ambulatory DO Prem Goel Work Phone: [facility] Work Phone: Start: 04-29-2022 End: 04-29-2022 Patient encounter procedure DO Prem Goel Work Phone: [facility] Start: 03-06-2022 End: 03-07-[address] KHOA RAMOS . Facility:[facility] Start: 02-27-2022 End: 02-27-2022 ambulatory Prem Goel Other [facility] Other Start: 02-27-2022 Telephone encounter Prem Goel [facility] Start: 02-18-2022 End: 02-18-[address] KHOA RAMOS . Facility:[facility] Start: 01-28-2022 End: 01-28-2022 ambulatory Prem Goel Other [facility] Other Start: 01-28-2022 Office outpatient visit 15 minutes Prem Goel [facility] Start: 01-21-2022 End: 01-22-[address] KHOA RAMOS . Facility:[facility] Start: 12-02-2021 End: 12-02-2021 ambulatory Prem Goel Other [facility] Other Start: 12-02-2021 Telephone encounter Prem Kuns [facility] [place] Start: 11-28-2021 End: 11-28-2021 ambulatory Prem Kuns Other [facility] Other Start: 11-28-2021 Telephone encounter Prem Kuns [facility] [place] Start: 10-02-2021 End: 10-02-2021 ambulatory Prem Kuns Other [facility] Other Start: 10-02-2021 Telephone encounter Prem Kuns [facility] [place] Start: 09-10-2021 End: 09-10-2021 ambulatory Prem Kuns Other [facility] Other Start: 09-10-2021 Telephone encounter Prem Kuns [facility] [place] Start: 08-15-2021 End: 08-15-2021 ambulatory Prem Kuns Other [facility] Other Start: 08-15-2021 Office outpatient visit 25 minutes Prem Kuns [facility] [place] Start: 08-12-2021 End: 08-12-2021 ambulatory Prem Kuns Other [facility] Other Start: 08-12-2021 Telephone encounter Prem Kuns [facility] Start: 06-13-2021 End: 06-13-2021 ambulatory Prem Kuns Other [facility] Other Start: 06-13-2021 Telephone encounter Prem Kuns [facility] [place] Start: 04-30-2021 End: 04-30-2021 ambulatory Prem Kuns Other [facility] Other Start: 04-30-2021 Office outpatient visit 25 minutes Prem Kuns [facility] [place] Start: 02-28-2021 End: 02-28-2021 ambulatory Premsaloni Goel Other [employer] [facility] [employer] Other Start: 02-28-2021 Patient encounter procedure Prem Cabezaseddie [facility] [place] Start: 08-18-2019 Annual wellness visit Prem arevalo Other [facility] [employer] Other Procedures Date Procedure Procedure Detail Performing Clinician Start: 10-12-2023 Quick Strep (POC) DO Br ett [place] Work Phone: Start: 10-12-2023 RSV (POC) DO Prem K uns Work Phone: Plan of Treatment Date Care Activity Detail Author Start: 04-04-2024 Bacteria identified in Urine by Culture Urine Culture [facility] Start: 04-04-2024 Urine culture [facility] Comprehensive metabo lic 2000 panel - Serum or Plasma [facility] Glucose measurement estimated from glycated hemoglobin [facility] Glucose measurement estimated from glycated hemoglobin [facility] US Heart [facility]hor[facility] Immunizations Immunization Date Immunization Notes Care Provider Fa cility 06-13-2021 COVID-19 Vaccine Pfizer - Documentation Purposes Only Prem Goel Other [facility] 07-19-2020 COVID-19 Vaccine Pfizer - Documentation Purposes Only Prem Goel Other [facility] 06-29-2020 COVID-19 Vaccine Pfizer - Documentation Purposes Only Prem Caebzass Other [facility] NEGATED: Highlighted row has not occurred!05-06-2022 influenza, seasonal, injectable Patient Objection Prem Goel Other [facility] NEGATED: Highlighted row has not occurred!05-06-2022 Prevnar 20 Patient Objection Prem Goel Other [facility] NEGATED: Highlighted row has not occurred!02-17-2019 influenza, seasonal, injectable Patient Objection Prem Goel Other [facility] NEGATED: Highlighted row has not occurred!04-07-2017 influenza, seasonal, injectable Patient Objection Prem Goel Other [facility] Payers Date Payer Category Payer Self-pay [id number] Private Health Insurance [id number] 1937 Unknown [id number] 2.16.840.1.104571.3.579.2.593 1937 Unknown [id number] 2.16.840.1.669801.3.579.2.59 1937 Unknown [id number] 2.16.840.1.368682.3.579.2.593 1937 Unknown [id number] 2.16.840.1.997822.3.579.2.593 1937 Unknown [id number] 2.16.840.1.555157.3.579.2.593 1937 Unknown [id number] 2.16.840.1.342979.3.579.2.593 1937 Unknown [id number] 2.16.840.1.408255.3.579.2.593 1937 Unknown [id number] 2.16.840.1.710630.3.579.2.593 1937 Unknown [id number] 2.16.840.1.797639.3.579.2.593 1937 Unknown [id number] 2.16.840.1.073433.3.579.2.593 1937 Unknown [id number] 2.16.840.1.946299.3.579.2.593 Medicare Medicare [id number] Unknown [facility] Health Claims [id number] Unknown [id number] 2.16.840.1.428779.3.579.2.531 Unknown [id number] 2.16.840.1.827272.3.579.2.531 Unknown [id number] 2.16.840.1.850370.3.579.2.531 Unknown [id number] 2.16.840.1.586249.3.579.2.531 Social History Date Type Detail Facility Unknown if ever smoked [facility] Other Sex Assigned At Sex Assigned At Bir th [facility] Other Start: 03-28-2020 End: 12-29-2023 Tobacco smoking status NHIS Never smoked tobacco (finding) [facility] Start: 1935 Sex Assigned At Female F [facility] Start: 09-06-2024 Sex Female (finding) [facility] Clinical Notes 12-21-2007 to 04-04-2024 Note Date & Type Note Facility 04-04-2024 Evaluation note Authored April 04, 2024 8:14am The above note written by JUVENAL Diamond acting as human recorder, note dictated by Dr. Prem Goel. [facility] Work Phone: [phone] 185-424610-10-2023 Evaluation note* Encounter Date Diagnosis Assessment Notes [...] exercise regimen; we will continue to monitor. [facility] Other 08-25-2023 Evaluation note* Encounter Date Diagnosis Assessment Notes Treatment Notes Treatment Clinical Notes Jan, Hyperlipidemia (ICD-10 - E78.5) [facility] Other 06-07-2023 Evaluation note* Encounter Date Diagnosis Assessment Notes Treatment Notes Treatment Clinical Notes Nov, Bronchopneumonia (ICD-10 - J18.0) [facility] records reviewed from both 11/06 [...] (ICD-10 - R59.0) Noted on imaging from [facility]. I do believe this is likely due to her being ill. She has never smoked. Discussed these findings with the and the patient if symptoms persist we may have pulmonary evaluation but at this time patient appears to be improving [facility] Other 04-27-2023 NoteCONSULTATION CONSULTATION DATE: 10/02/2022 TO: [...] our patients to inform us about any qujf-cvy-btgrbwl medications or herbal remedies/nutritional supplements/alternative remedies. 2. [...] treatment options with their primary care provider.[id number] Note CONSULTATION CONSULTATION DATE: 09/04/2022 TO: Dr. [...] mg pills, 1-2 at h.s. as tolerated.[facility] [id number] NoteCONSULTATION CONSULTATION DATE: 07/22/2022 CHIEF COMPLAINT: Right [...] her understand and would like to proceed,.[facility] 05-08-2022 NoteCONSULTATION CONSULTATION DATE: 05/08/2022 HISTORY [...] in three months' time unless otherwise indicated.[facility] [id number] NoteCONSULTATION CONSULTATION DATE: 03/06/2022 This is a [...] of care and all questions were answered.[facility] [id number] Evaluation note* Encounter Date Diagnosis Assessment Notes Treatment Notes Treatment Clinical Notes Feb, Hyperlipidemia (ICD-10 - E78.5) [facility] Other 08-23-2022 Evaluation note* Encounter Date Diagnosis [...] E78.5) Jan, Hyperglycemia (ICD-1 0 - R73.9) [facility] Other 08-16-2022 NoteCONSULTATION CONSULTATION DATE: 01/21/2022 CHIEF [...] and her understand. CC: Dr. Raphael Escamilla D.O.[facility]05-20-2022 NotePROCEDURE: [employer] Sign[employer] HDXT 1.5 Sagittal T1, T2, [...] signed by Ralph Figueroa on 10/25/2021 1510[facility]n [facility] [id number] Evaluation note* Encounter Date Diagnosis Assessment Notes [...] we will attempt to order an MRI. [facility] Other 01-06-2022 Evaluation note* Encounter Date Diagnosis Assessment Notes Treatment Notes Treatment Clinical Notes Jun, Hyperlipidemia (ICD-10 - E78.5) [facility] Other 11-23-2021 Evaluation note* Encounter Date Diagnosis [...] work-up i.e. CAT scan of her abdomen. [facility] Other 09-23-2021 Evaluation note* Encounter Date Diagnosis [...] monitor, a blood work order was provided. [facility] Other 07-15-2008 History general Narrative - Reported* Type Description Date Medical History Colonoscopy 12-21-07 Medical History Stress Test 01-18-[address] Scan Abdomen and Pelvis 06-07 Medical History Mammogram 2-11 Medical History Pap 1-10 Medical [place] [facility] [place] 10/13/13-mammogram at [facility] Medical History 12/2015 mammogram Medical History 12/2016 Mammogram Medical History 07/2019 Mammogram Medical History Cardiolite 04/09/20 Surgical History wisdom teeth Hospitalization History child [facility] Other 07-15-2008 History general Narrative - Reported* Type Description Date Medical History Colonoscopy 12-21-07 Medical History Stress Test 01-18-[address] Scan Abdomen and Pelvis 06-07 Medical History Mammogram 2-11 Medical History Pap 1-10 Medical History 02/[place] [facility] [place] History 10/13/13-mammogram at [facility] Medical History 12/2015 mammogram Medical History 12/2016 Mammogram Medical History 07/2019 Mammogram Medical History Cardiolite 04/09/20 Medical History hearing aids Surgical History wisdom teeth Hospitalization History child [facility] [employer] Other Evaluation noteNo InformationNortChan [facility] [employer] Other Evaluation noteNo assessment information available [facility] Work Phone: Evaluation note* Diagnosis Onset Date Resolution Status Degenerative disc disease, lumbar acute Encounter for subsequent alphonse ual wellness visit (AWV) in Medicare patient acute Fall acute Hyperlipidemia acute Lower extremity edema acute Prediabetes acute Screening mammogram for breast cancer acute Urinary incontinence acute [facility] Work Phone: Evaluation note* Author Beena Packer [facility] Authored December 29, 2023 10:0 4am The above note written by JUVENAL Diamond acting as human recorder, note dictated by Dr.Brett Goel. [facility] Work Phone: Evaluation note* Author Beena Packer [facility] Authored April 04, 2024 8 :14am The above note written by JUVENAL Diamond acting as human recorder, note dictated by Dr. Prem Goel. [facility] Work Phone: Summary Purpose Family History Relationship [...] section and content) DATE CREATED AUTHOR 04/11/2020 [facility] DATE CREATED AUTHOR AUTHOR'S ORGANIZ ATION 10/27/2021 [facility] dical Specialist DATE CREATED AUTHOR AUTHOR'S ORGANIZ ATION 10/17/2022 [facility] DATE CREATED AUTHOR AUTHOR'S ORGANIZ ATION 04/10/2024 [facility] REASON FOR VISIT (unrecogniz [...] BE BASED ON THE PRIMARY CLINICAL RECORDS. [facility] [employer] [facility]. provides no warranty or guarantee of the accuracy or completeness of information in this document.
[2025-01-30 11:08] VITALS: BP 153/93; PULSE 64; TEMP 36.2; O2SAT 98
[2025-01-30 11:34] VITALS: BP 216/102; BP 223/102; PULSE 67; O2SAT 96
[2025-01-30] MEDS: 0.9 % SODIUM CHLORIDE 10 ML SYRINGE - SALINE FLUSH INJ (11:37)
[2025-01-30] MEDS: IOHEXOL 240 MG/ML - 10 ML VIAL 24 MG INJ (11:38)
[2025-01-30] MEDS: METHYLPREDNISOLONE ACETATE 80 MG/ML VIAL INJ (11:38)
[2025-01-30] MEDS: LIDOCAINE HCL 2% 400 MG/20 ML MDV 3 ML INJ (11:38)
[2025-01-30] MEDS: BUPIVACAINE HCL 0.25% PF 25 MG/10 ML VIAL INJ (11:38)
--- NOTE | 2025-01-30 11:41 | P.ON_ITS ---
Date of procedure: 01/30/25 Pre-op diagnosis: Pain due to lumbar stenosis with neurogenic claudication Post-op diagnosis: same as pre-op Procedure: Procedure: Right L4-5, L5-S1 transforaminal epidural steroid injection Medications: Bupivacaine 0.25% 2cc, lidocaine 2% 1cc, depomedrol 80mg The patient was seen and examined in the preoperative holding area.? Informed consent was obtained and placed on the chart.? Patient was brought to the medical procedure unit and placed in the prone position where a timeout was completed verifying the correct patient, procedure site, position, and planned special equipment using sterile aseptic technique.? Under direct fluoroscopic visualization a 25-gauge Quincke tipped spinal needle was advanced to the designated neural foramen where contrast dye was injected to show adequate spread.? The needle was inserted at level right L4-5. There was no evidence of vascular or adverse uptake.? Epidural spread was appreciated.? The above- mentioned injectate was then placed in a 1.5 mL aliquot preceded by negative aspiration.? The needle was removed. The needle was inserted and the procedure repeated at level right L5-S1.? The surgery site was covered.? Patient was taken to the postprocedural recovery area and monitored for an appropriate length of time before found suitable for discharge in the accompaniment of a responsible adult. Anesthesia: Local Surgeon: Isidro Resendiz Pathology: none sent Condition: stable Disposition: no change
== END 2025-01-30 11:44 | disposition home or self-care (01) ==
PROVIDERS: PCP Family Medicine; Visit Provider Anesthesiology
DX: M48.062 Spinal stenosis, lumbar region with neurogenic claudication (principal)
CPT/HCPCS: 64483; 64484; J0665; J1010; Q9966

== ENCOUNTER 2025-02-08 09:15 | Outpatient (OUT) | payer MEDICARE, SELFPAY ==
--- NOTE | 2025-02-08 09:18 | PM.CN ---
Consult Note: HPI Data of Consult Patient: known to practice within the last 3 years Requesting Physician: Mercy Pak NP Primary Care Provider: PREM GOEL Consult Narrative Reason for consult: low back pain Narrative: Mary King a pleasant 89 year old female presents for evaluation and management of chronic low back pain. longstanding low back pain > 12 months unresponsive to > 6 weeks of PT/HEP, heat, ice, tylenol, NSAIDs. recently underwent right L4-5 L5-S1 TFESI with >50% improvement in NC. continues to endorse right low back and hip pain. pain today 7/10 pressure increasing with activity, transititioning, and when she wakes up. denies fall/injury. continues to utilize cane. currently utilizing zonegran, tylenol, diclofenac with benefit without side effects. cc:: CC: eMrcy Pak NP Review of Systems ROS Musculoskeletal Reports: back pain and joint pain; Denies: extremity pain PFSH PFSH Medical History Low back pain ?M54.50 - Low back pain, unspecified (ICD-10) Hearing deficit ?H91.90 - Unspecified hearing loss, unspecified ear (ICD-10) High cholesterol ?E78.00 - Pure hypercholesterolemia, unspecified (ICD-10) Surgical History H/O breast biopsy ?Z98.890 - Other specified postprocedural states (ICD-10) Family History Brother Family history of CHF (congestive heart failure) Social History Within the past year, how often did you have a drink containing alcohol: monthly or less Within the past year, how many standard drinks containing alcohol did you have on a typical day: 1 or 2 Within the past year, how often did you have six or more drinks on one occasion: less than monthly Total score: 1 Score interpretation: A score less than 3 is consistent with normal alcohol consumption. 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 Known occupational exposures/hazards: No Highest level of school completed/degree received: high school graduate Do you want help with school or training: No Are you now , , , , never or living with a partner: In a typical week, how many times do you talk on the telephone with family, friends, or neighbors: 3 or more times per week How often do you get together with friends or relatives: 3 or more times per week How often do you attend yazdanism or sabianist services: 4 or more times per year Do you belong to any clubs or organizations such as yazdanism groups unions, Events [employer] or athletic groups, or school groups: no Total score: 3 Score interpretation: A score of greater than or equal to 2 indicates the lowest level of social isolation. Little interest or pleasure in doing things: several days Feeling down, depressed, or hopeless: several days Feel stressed/tense/nervous/anxious/difficulty sleeping: only a little Due to disability, difficulty making decisions: No Do you think of yourself as: straight/heterosexual Gender Identity: female Meds Home Medications and Allergies Home Medications ?Medication ?Instructions ?Recorded ?Confirmed ?Type acetaminophen 650 mg 650 mg PO .QD 11/14/22 01/30/25 History tablet,extended release (Arthritis Pain Relief (acetaminophen) ER) zonisamide 25 mg capsule 50 mg PO BID 03/31/24 01/30/25 History diclofenac sodium 75 mg 75 mg PO BID PRN pain #60 tabs 12/12/24 01/30/25 Rx tablet,delayed release Allergies Allergy/AdvReac Type Severity Reaction Status Date / Time No Known Drug Allergies Allergy Verified 01/30/25 11:10 Exam Constitutional Documenting provider has reviewed patient's vital signs: yes Common normals: no apparent distress, oriented x3, healthy appearing, alert and well nourished General appearance: cooperative HENWY Common normals: normocephalic, hearing grossly normal bilaterally and moist oral mucous membranes Head and scalp: normocephalic Eye Common normals: PERRL Pupil: PERRL Neck & C-Spine Common normals: full ROM General: normal visual inspection Chest Common normals: inspection of chest normal Respiratory Common normals: normal respiratory effort, no retractions and no use of accessory muscles Back & Pelvis Lumbar spine/lower back: ROM limited, lumbar spinal tenderness and straight leg raise negative bilaterally; no pain with ROM Sacroiliac joints: SI joint(s) abnormal Other: right sij positive ross(patricks), gaenslens, thigh thrust, compression test strength 5/5 in BLE sensation intact BLE Neuro Common normals: oriented x3 Sensorium/orientation: alert Psych Common normals: mental status grossly normal, thought process normal, cooperative, affect normal, speech normal and activity/motor behavior normal Speech: normal speech Thought process: normal thought process Results Additional Findings Additional findings: If on a controlled substance or opioids, I have checked an [place]ARRS report on this patient and there are no aberrancies noted in the prescribing history.??If on a controlled substance or opioid a drug screen was completed and reviewed within the last year, and if there has not been a drug screen completed we ordered one today to monitor higher risk, state monitored pain medication use. As part of providing excellent, safe, comprehensive care, the following was completed at our patient's visit: 1. A medication reconciliation and review to ensure accurate knowledge of current/active medications, including asking our patients to inform us about any sjah-aym-qpxvihe medications or herbal remedies/nutritional supplements/alternative remedies. 2. A review to specifically ensure our patients have had annual screening for screening for depression, screening for tobacco use, and screening for unhealthy alcohol use. For concerning screenings had a discussion with the patient, provided patient education, and recommended follow-up with primary care provider when appropriate. If patient noted with a risk of falling, they received education on strength, gait, and balance training to prevent future risk of falling. Portions of this note may have been carried over from the previous visit and updated as appropriate. Please note this office utilizes paper charting in addition to the electronic medical record. A list of current medications, vitals, and PMH is available there as the clinical staff outside of myself do not have access to [employer] charting during the clinic day operations. As part of providing quality comprehensive care the current medications, vitals, and PMH were reviewed in the paper chart. Assessment and Plan Assessment and Plan (1) Sacroiliitis: (2) Lumbar stenosis with neurogenic claudication: Assessment and Plan: 01-30-25 Right L4-5, L5-S1 transforaminal epidural steroid injection >50% improvement ongoing ? (3) Lumbar radiculopathy: Plan The patient has had over 3 months of moderate to severe low back and right SIJ pain with functional impairment and inadequate response to conservative care including NSAIDS (unless there are contraindication such as concurrent blood thinners), multiple oral or topical pain medications, and home exercise program/physical therapy.? Patient has completed >6 weeks of guided home exercise program and/or formal physical therapy program without relief of their symptoms.? The Oswestry Disability Index was completed, and the patient scored a 36%.? proceed with right SIJ injection under fluoroscopy continue current medications continue HEP as tolerated f/u after procedure
--- OUTSIDE RECORDS SUMMARY | 2025-02-08 09:20 | XMS_ITS | Clinical Summary ---
Author Organization [facility] Address [address] [place] [address] Phone Care Team Providers Care Electrical Equipment Technician Name Role Phone Ignacio Ennis DO Primary Care Provider [phone] Social History Tobacco Use Types Packs/Day Years [...] topic Insurance [employer] Care Teams Electrical Equipment Technician Relationship Specialty Start Date End Date Ignacio Ennis DO PCP - General 04/09/20
--- OUTSIDE RECORDS SUMMARY | 2025-02-08 09:20 | XMS_ITS | Clinical Summary ---
Author Organization [facility] Healthcare Address [address] [place] [address] Care Team Providers Care Toy Designer Name Role Phone Unavailable Primary Care Provider [...] Plan of Treatment Not on file Insurance [facility] MEDICARE ADVANTAGE
--- OUTSIDE RECORDS SUMMARY | 2025-02-08 09:37 | XMS_ITS | CCD ---
Author Organization [facility] CliniSywa Care Team Providers Care Direct Support Professional Home Health Name Role Phone Prem Goel Unavailable DO Prem Goel Primary Care Provider [phone] DO Prem Goel Attending Provider LAKSHMIPATHY ., NARENDBASSAMATH Admitting Eda vailable RAYMON, DR AMARO Primary Care Unavailable LAKSHMIPATHY ., NARENDBASSAMATH Attending Eda vailable LAKSHMIPATHY ., NARENDBASSAMATH Consulting Eda vailable HALKER .TAMEKA Consulting Unavailable RAYMON, DR AMARO Primary Care Unavailable LAKSHMIPATHY ., NARFRANCISCAATH Attending Eda vailable LAKSHMIPATHY ., DONELL Consulting Eda vailable LAKSHMIPATHY ., DONELL Admitting Eda vailable RAYMON, DR AMARO Primary Care Unavailable LAKSHMIPATHY ., NARENDBASSAMATH Attending Eda vailable LAKSHMIPATHY ., NARENDBASSAMATH Consulting Eda vailable LAKSHMIPATHY ., ERISATH Admitting [...] ., NARENDBASSAMATH Attending Eda vailable LAKSHMIPATHY ., NARENDBASSAMATH Consulting Eda vailable Kuns, DO Prem Primary Care Provider [phone] Kuns, DO Prem Attending Provider Kuns, DO Prem Primary Care Provider [phone] Kuns, DO Prem Attending Provider Kuns, DO Prem Primary Care Provider Kuns, DO Prem Attending Provider Kuns, DO Prem Primary Care Provider [phone] Kuns, DO Prem Attending Provider [phone] Kuns, Prem Attending Unavailable Kuns, Prem Primary Care Unavailable Kuns, Prem Admitting Unavailable Kuns, Prem Primary Care Unavailable Kuns, Prem Admitting Unavailable Kuns, Prem Attending Unavailable Kuns, Prem Primary Care Unavailable Kuns, Prem Admitting Unavailable Kuns, Prem Attending Unavailable Kuns, Prem Attending Unavailable Kuns, Prem Primary Care Unavailable Kuns, Prem Admitting Unavailable Martín DRAPER, Isidro Aburto Attending Unavailable Medications Current Medications Medication Drug Class(es) [...] as needed Orally every 8 hrs Active [id number] 200 actuat albuterol 0.09 mg/actuat metered dose [...] 2020 12:00am January 06, 2024 8:12am Vit No.242-Gacv-Pjzfv (Classic ) 28 mg iron- 800 mcg tablet (8 sources) Start: 09-24-2023 End: 09-24-2023 Vit No.169-Tpkc-Joval (Classic ) 28 mg iron- 800 mcg [...] Cx Nom (U) ORGANISM: Escherichia coli (O:ESCCOL) [place] Count >100,000 Aerobic BLAYNE Charge ([id number]) ---- [...] RESISTANT TO ALL B-LACTAM DRUGS. PERFORMED BY: [address] [place] [address] PATHOLOGIST DOCUMENT PROCESSING SPECIALIST BEV TALBERT M.D. Normal [facility] Comment on above: Performed By: #### C UU #### [facility] [address] [place] [address] [place] Alanine aminotransferase [En zymatic activity/volume] in Serum or PlasmaOrdered By: Prem Goel on 03-30-2024 ALT [Catalytic activity/Vol] 14 U/L Normal 7-52 [facility] Comment on above: Performed By: #### L IPID, TSH3, CMP, CBC #### [facility] [address] [place] [address] [place] Albumin [Mass/volume] in Ser um or Plasma by Bromocresol green (BCG) dye binding methoOrdered By: Prem Goel on 03-30-2024 Albumin BCG dye [Mass/Vol] 3.8 g/dL 3.5-5.7 [facility] Alkaline phosphatase [Enzyma tic activity/volume] in Serum or PlasmaOrdered By: Prem Goel on 03-30-2024 ALP [Catalytic activity/Vol] 87 U/L Normal 34-104 [facility] Comment on above: Performed By: #### L IPID, TSH3, CMP, CBC #### [place] [address] [place] Aspartate aminotransferase [ Enzymatic activity/volume] in Serum or PlasmaOrdered By: Prem Goel on 03-30-2024 AST [Catalytic activity/Vol] 15 U/L Normal 13-39 [facility] Comment on above: Performed By: #### L IPID, TSH3, CMP, CBC #### [facility] [address] [place] [address] Automated basophil %Ordered By: Prem Goel on 03-30-2024 Basophils/100 WBC (Bld) 0.8 % Normal . [facility] Comment on above: Performed By: #### L IPID, TSH3, CMP, CBC #### [facility] [address] [place] [address] [place] Automated basophil countOrde red By: Prem Goel on 03-30-2024 Basophils (Bld) [#/Vol] 0.0 10*3/uL Normal 0.0-0.2 [facility] Comment on above: Result Comment: PERF ORMED BY: [place] [address] PATHOLOGIST DOCUMENT PROCESSING SPECIALIST BEV TALBERT M.D. Performed By: #### L IPID, TSH3, CMP, CBC #### [address] Automated blood monocyte cou ntOrdered By: Premsaloni Cabezass on 03-30-2024 Monocytes (Bld) [#/Vol] 0.5 10*3/uL Normal 0.0-0.8 [facility] Comment on above: Performed By: #### L IPID, TSH3, CMP, CBC #### [address] Automated eosinophil %Ordere d By: Prem Raulitos on 03-30-2024 Eosinophils/100 WBC (Bld) 2.5 % Normal . [facility] Comment on above: Performed By: #### L IPID, TSH3, CMP, CBC #### [address] Automated eosinophil countOr dered By: Premsaloni Cabezass on 03-30-2024 Eosinophils (Bld) [#/Vol] 0.1 10*3/uL Normal 0.0-0.45 [facility] Comment on above: Performed By: #### L IPID, TSH3, CMP, CBC #### [address] Automated monocyte %Ordered By: Premsaloni Cabezass on 03-30-2024 Monocytes/100 WBC (Bld) 9.1 % Normal . [facility] Comment on above: Performed By: #### L IPID, TSH3, CMP, CBC #### [address] Automated neutrophil %Ordere d By: Prem Kuns on 03-30-2024 Neutrophils/100 WBC (Bld) 52.9 % Normal . [facility] Comment on above: Performed By: #### L IPID, TSH3, CMP, CBC #### [address] [place] [address] [place] Bilirubin.total [Mass/volume ] in Serum or PlasmaOrdered By: Prem Goel on 03-30-2024 Bilirubin [Mass/Vol] 0.4 mg/dL Normal 0.3-1.[address] [facility] Comment on above: Performed By: #### L IPID, TSH3, CMP, CBC #### [facility] [address] [place] [address] [place] Calcium [Mass/volume] in Ser um or PlasmaOrdered By: Prem Goel on 03-30-2024 Calcium [Mass/Vol] 9.2 mg/dL Normal 8.6-10.3 [facility] Comment on above: Performed By: #### L IPID, TSH3, CMP, CBC #### [facility] [address] [place] [address] [place] Carbon dioxide, total [Moles /volume] in Serum or PlasmaOrdered By: Prem Goel on 03-30-2024 CO2 [Moles/Vol] 28.9 mmol/L Normal 21.0-31.0 [facility] Comment on above: Performed By: #### L IPID, TSH3, CMP, CBC #### [facility] [address] [place] [address] [place] Chloride [Moles/volume] in S dede or PlasmaOrdered By: Prem Goel on 03-30-2024 Chloride [Moles/Vol] 106 mmol/L Normal 98-[address] [facility] Comment on above: Performed By: #### L IPID, TSH3, CMP, CBC #### [facility] [address] [place] [address] [place] Cholesterol [Mass/volume] in Serum or PlasmaOrdered By: Prem Goel on 03-30-2024 Cholesterol [Mass/Vol] 319 mg/dL High 140-200 [facility] Comment on above: Chol less than 200 m g/dl low riskChol 201-239 mg/dl borderline riskChol 240 mg/dl and greater high risk Result Comment: Chol less than 200 mg/dl low risk Chol 201-239 mg/dl borderline risk Chol 240 mg/dl and greater high risk Performed By: #### L IPID, TSH3, CMP, CBC #### [facility] [address] [place] [address] [place] Cholesterol in LDL Calc [Mas s/Vol]Ordered By: Prem Goel on 03-30-2024 Cholesterol in LDL [Mass/Vol] 230 mg/dL High 0-100 [facility] Comment on above: LDL ATP III CLASSIFI CATIONLDL less than 100 mg/dL OptimalLDL 100-129 mg/dL Near or above optimalLDL 130-159 mg/dL Borderline highLDL 160-189 mg/dL HighLDL greater than 189 mg/dL Very high Cholesterol in VLDL Calc [Ma ss/Vol]Ordered By: Prem Goel on 03-30-2024 Cholesterol in VLDL [Mass/Vol] 18 mg/dL [facility] Complete Blood Count Auto Di ffon 03-30-2024 Mean Corpuscular HGB Conc 33.4 g/dL Normal 32.0-35.0 [facility] Comment on above: Performed By: #### L IPID, TSH3, CMP, CBC #### [facility] [address] NRBC% 0.1 /100{WBC} Normal 0-0.5 [facility] Comment on above: Performed By: #### L IPID, TSH3, CMP, CBC #### [facility] [address] Comprehensive Metabolic Pane [place] 03-30-2024 Albumin [Mass/Vol] 3.8 g/dL Normal 3.5-5.7 [facility] Comment on above: Performed By: #### L IPID, TSH3, CMP, CBC #### [facility] [address] [place] [address] [place] GFR/1.73 sq M.predicted MDRD (S/P/Bld) [Vol rate/Area] mL/min/{1.73_m2} Normal [facility] Comment on above: Performed By: #### L IPID, TSH3, CMP, CBC #### [place] [address] [place] Creatinine [Mass/volume] in Serum or PlasmaOrdered By: Prem Goel on 03-30-2024 Creatinine [Mass/Vol] 0.76 mg/dL Normal 0.60-1.20 [facility] Comment on above: Performed By: #### L IPID, TSH3, CMP, CBC #### [facility] [address] Erythrocyte distribution wid th [Ratio] by Automated countOrdered By: Prem Goel on 03-30-2024 Erythrocyte distribution width (RBC) [Ratio] 12.7 % Normal 11.9-15.3 [facility] Comment on above: Performed By: #### L IPID, TSH3, CMP, CBC #### [facility] [address] Erythrocytes [#/volume] in B lood by Automated countOrdered By: rPem Goel on 03-30-2024 RBC (Bld) [#/Vol] 4.43 10*6/uL Normal 3.60-5.00 [facility] Comment on above: Performed By: #### L IPID, TSH3, CMP, CBC #### [facility] [address] Glucose [Mass/volume] in Ser um or PlasmaOrdered By: Prem Goel on 03-30-2024 Glucose [Mass/Vol] 89 mg/dL Normal 70-100 [facility] Comment on above: ADA recommended refe rence rangeRandom Glucose Reference Range is dependent on time and content of last meal. Glucose of more than 200 mg/dL in a nonstressed, ambulatory subject supports the diagnosis of Diabetes Mellitus. Result Comment: [place] om Glucose Reference Range is dependent on time and content of last meal. Glucose of more than 200 mg/dL in a nonstressed, ambulatory subject supports the diagnosis of Diabetes Mellitus. ADA recommended reference range Performed By: #### L IPID, TSH3, CMP, CBC #### [facility] [address] [place] [address] [place] Hematocrit [Volume Fraction] of Blood by Automated countOrdered By: Prem Goel on 03-30-2024 Hematocrit (Bld) [Volume fraction] 41.5 % Normal 34.0-46.4 [facility] Comment on above: Performed By: #### L IPID, TSH3, CMP, CBC #### [facility] [address] Hemoglobin [Mass/volume] in BloodOrdered By: Prem Goel on 03-30-2024 Hemoglobin (Bld) [Mass/Vol] 13.9 g/dL Normal 11.8-15.4 [facility] Comment on above: Performed By: #### L IPID, TSH3, CMP, CBC #### [facility] [address] Leukocytes [#/volume] correc guillermina for nucleated erythrocytes in Blood by Automated counOrdered By: Prem Goel on 03-30-2024 WBC corrected for nucl RBC Auto (Bld) [#/Vol] 5.4 10*3/uL 3.8-11.6 [facility] Leukocytes [#/volume] in Blo od by Automated countOrdered By: Prem Goel on 03-30-2024 WBC (Bld) [#/Vol] 5.4 10*3/uL Normal 3.8-11.6 [facility] Comment on above: Performed By: #### L IPID, TSH3, CMP, CBC #### [address] Lipid Panelon 03-30-2024 LDL Cholesterol,Calculated 230 mg/dL High 0-100 [facility] Comment on above: Result Comment: LDL ATP III CLASSIFICATION LDL less than 100 mg/dL Optimal LDL 100-129 mg/dL Near or above optimal LDL 130-159 mg/dL Borderline high LDL 160-189 mg/dL High LDL greater than 189 mg/dL Very high Performed By: #### L IPID, TSH3, CMP, CBC #### [address] Triglyceride w/Reflex 94 mg/dL Normal 0-149 [facility] Comment on above: Result Comment: TRIG ATP III CLASSIFICATION TRIG less than 150 mg/dL Normal TRIG 150-199 mg/dL Borderline high TRIG 200-500 mg/dL High TRIG greater than 500 mg/dL Very high Standard traceable to the Center for Disease Conrtrol and Prevention (CDC) test method. Performed By: #### L IPID, TSH3, CMP, CBC #### [address] VLDL CHOLESTEROL 18 mg/dL Normal [facility] Comment on above: Performed By: #### L IPID, TSH3, CMP, CBC #### [address] Lymphocytes [#/volume] in Bl ood by Automated countOrdered By: Prem Goel on 03-30-2024 Lymphocytes (Bld) [#/Vol] 1.9 10*3/uL Normal 1.00-4.8 [facility] Comment on above: Performed By: #### L IPID, TSH3, CMP, CBC #### [address] Lymphocytes/100 leukocytes i n Blood by Automated countOrdered By: Prem Goel on 03-30-2024 Lymphocytes/100 WBC (Bld) 34.7 % Normal . [facility] Comment on above: Performed By: #### L IPID, TSH3, CMP, CBC #### [address] MCH [Entitic mass] by Automa guillermina countOrdered By: Prem Goel on 03-30-2024 MCH (RBC) [Entitic mass] 31.3 pg Normal 24.7-34.3 [facility] Comment on above: Performed By: #### L IPID, TSH3, CMP, CBC #### [address] MCHC Auto (RBC) [Mass/Vol]Or dered By: Prem Goel on 03-30-2024 MCHC (RBC) [Mass/Vol] 33.4 g/dL 32.0-35.0 [facility] MCV [Entitic volume] by Auto mated countOrdered By: Prem Goel on 03-30-2024 MCV (RBC) [Entitic vol] 93.7 fL Normal 80-100 [facility] Comment on above: Performed By: #### L IPID, TSH3, CMP, CBC #### [facility] [address] Neutrophils [#/volume] in Bl ood by Automated countOrdered By: Prem Goel on 03-30-2024 Neutrophils (Bld) [#/Vol] 2.9 10*3/uL Normal 1.8-7.7 [facility] Comment on above: Performed By: #### L IPID, TSH3, CMP, CBC #### [facility] [address] [place] [address] No Panel InformationOrdered By: Prem Goel on 03-30-2024 Estimated GFR (CKD-EPI) > 60.0 mL/Min [facility] Creatinine Clearance (Chem N/A [facility] Nucleated erythrocytes [Pres ence] in Blood by Automated countOrdered By: Prem Goel on 03-30-2024 Nucleated RBC Auto Ql (Bld) 0.1 /100{WBC} 0-0.5 [facility] Platelet mean volume [Entiti c volume] in Blood by Automated countOrdered By: Prem Goel on 03-30-2024 Platelet mean volume (Bld) [Entitic vol] 10.4 fL Normal 6.3-10.7 [facility] Comment on above: Performed By: #### L IPID, TSH3, CMP, CBC #### [facility] [address] [place] [address] Platelets [#/volume] in Bloo d by Automated countOrdered By: Prem Goel on 03-30-2024 Platelets (Bld) [#/Vol] 199 10*3/uL Normal 150-450 [facility] Comment on above: Performed By: #### L IPID, TSH3, CMP, CBC #### [facility] [address] [place] [address] Potassium [Moles/volume] in Serum or PlasmaOrdered By: Prem Goel on 03-30-2024 Potassium [Moles/Vol] 4.1 mmol/L Normal 3.5-5.1 [facility] Comment on above: Performed By: #### L IPID, TSH3, CMP, CBC #### [facility] [address] [place] [address] Protein [Mass/volume] in Ser um or PlasmaOrdered By: Prem Goel on 03-30-2024 Protein [Mass/Vol] 6.1 g/dL Low 6.4-8.9 [facility] Comment on above: Performed By: #### L IPID, TSH3, CMP, CBC #### [facility] [address] [place] [address] Serum globulin measurement b y calculation (mass/volume)Ordered By: Prem Goel on 03-30-2024 Globulin (S) [Mass/Vol] 2.3 g/dL Normal [facility] Comment on above: Performed By: #### L IPID, TSH3, CMP, CBC #### [facility] [address] [place] [address] Serum or plasma albumin/glob ulin mass ratioOrdered By: Prem Goel on 03-30-2024 Albumin/Globulin [Mass ratio] 1.7 {ratio} Normal [facility] Comment on above: Performed By: #### L IPID, TSH3, CMP, CBC #### [facility] [address] [place] [address] Serum or plasma anion gap de terminationOrdered By: Prem Goel on 03-30-2024 Anion gap [Moles/Vol] 11.2 mmol/L Normal 6.0-15.0 [facility] Comment on above: Performed By: #### L IPID, TSH3, CMP, CBC #### [facility] [address] [place] [address] Serum or plasma high density lipoprotein (HDL) cholesterol measurementOrdered By: Prem Goel on 03-30-2024 Cholesterol in HDL [Mass/Vol] 70 mg/dL Normal [facility] Comment on above: HDL CHOL ATP-III CLA SSIFICATION Cardiovascular RiskHDL > or equal to 60 mg/dL LOWHDL < 40 mg/dL HIGH Result Comment: HDL CHOL ATP-III CLASSIFICATION Cardiovascular Risk HDL > or equal to 60 mg/dL LOW HDL < 40 mg/dL HIGH Performed By: #### L IPID, TSH3, CMP, CBC #### [address] Serum or plasma total choles terol/high density lipoprotein (HDL) cholesterol mass ratOrdered By: Prem Goel on 03-30-2024 Cholesterol.total/Araceli sterol in HDL [Mass ratio] 4.6 {ratio} Normal <5.0 [facility] Comment on above: Performed By: #### L IPID, TSH3, CMP, CBC #### [address] Sodium [Moles/volume] in Ser um or PlasmaOrdered By: Prem Goel on 03-30-2024 Sodium [Moles/Vol] 142 mmol/L Normal 136-145 [facility] Comment on above: Performed By: #### L IPID, TSH3, CMP, CBC #### [address] Thyrotropin [Units/volume] i n Serum or PlasmaOrdered By: Prem Goel on 03-30-2024 TSH Qn 2.68 m[IU]/L Normal 0.45-5.33 [facility] Comment on above: Result Comment: PERF ORMED BY: [place] [address] PATHOLOGIST DOCUMENT PROCESSING SPECIALIST BEV TALBERT M.D. Performed By: #### C MP, CBC, TSH3, LIPID #### [address] Triglyceride [Mass/volume] i n Serum or PlasmaOrdered By: Prem Goel on 03-30-2024 Triglyceride [Mass/Vol] 94 mg/dL 0-149 [facility] Comment on above: TRIG ATP III CLASSIF ICATIONTRIG less than 150 mg/dL NormalTRIG 150-199 mg/dL Borderline highTRIG 200-500 mg/dL High TRIG greater than 500 mg/dL Very highStandard traceable to the Center for Disease Conrtrol and Prevention (CDC) test method. Urea nitrogen [Mass/volume] in Serum or PlasmaOrdered By: Prem Goel on 03-30-2024 Urea nitrogen [Mass/Vol] 21 mg/dL Normal 7-25 [facility] Comment on above: Performed By: #### L IPID, TSH3, CMP, CBC #### [place] [id number] [facility] Influenza virus B Ag [Presen ce] in Upper respiratory specimen by Rapid immunoassayon 10-12-2023 FLUBV Ag IA.rapid Ql (Nph) Negative [facility] No Panel Informationon 10-11 Influenza Type A (Rapid) Negative [facility] POC SARS CoV-2 Antigen Negative [facility] No Panel InformationOrdered By: Prem Goel on 10-12-2023 Quick Strep (POC) [facility] RSV (POC) [facility] echo transthoracicon [facility] echo transthoracic [facility] Main [place] [address] [place] [address] Echocardiogram Signed Patient: Mary Wilkerson MR#: [id number] 119 : 1935 Acct:[id number] Age/Sex: 87 / F ADM Date: 10/06/23 Loc: Room: Type: [facility] Attending Dr: Prem Goel DO Ordering Provider: Prem Goel DO Date of Service: 10/06/23 [facility] echo transthoracic: R60.0 - Localized edema Copies to: DO Bruce Solares MD, [facility] BSA: 1.7 m2 BP: 147/85 mmHg [...] 10/06/23 0852 Signed By: Bruce Caballero MD, [facility] 10/06/23 1757 Normal [facility] A1C with Estimated Average G bassam 09-18-2023 Glucose [Mass/Vol] 117 mg/dL Normal The Counts include 234 beds at the [facility] Comment on above: Order Comment: Reaso n for Exam Hyperglycemia Result Comment: PERF ORMED BY: [place] [address] PATHOLOGIST DOCUMENT PROCESSING SPECIALIST BEV TALBERT M.D. Performed By: #### A 1C WT eA #### [place] [address] [place] Alanine aminotransferase [En zymatic activity/volume] in Serum or PlasmaOrdered By: Prem Goel on 09-18-2023 ALT [Catalytic activity/Vol] 15 U/L Normal 7-52 [facility] Comment on above: Order Comment: Reaso n for Exam Hyperlipidemia Performed By: #### C MP, CBC, TSH3, LIPID #### [facility] [address] [place] [address] [place] Albumin [Mass/volume] in Ser um or Plasma by Bromocresol green (BCG) dye binding methoOrdered By: Prem Goel on 09-18-2023 Albumin BCG dye [Mass/Vol] 4.0 g/dL 3.5-5.7 [facility] Alkaline phosphatase [Enzyma tic activity/volume] in Serum or PlasmaOrdered By: Prem Goel on 09-18-2023 ALP [Catalytic activity/Vol] 87 U/L Normal 34-104 [facility] Comment on above: Order Comment: Reaso n for Exam Hyperlipidemia Performed By: #### C MP, CBC, TSH3, LIPID #### [place] [address] [place] Aspartate aminotransferase [ Enzymatic activity/volume] in Serum or PlasmaOrdered By: Prem Goel on 09-18-2023 AST [Catalytic activity/Vol] 16 U/L Normal 13-39 [facility] Comment on above: Order Comment: Reaso n for Exam Hyperlipidemia Performed By: #### C MP, CBC, TSH3, LIPID #### [address] Automated basophil %Ordered By: Prem Goel on 09-18-2023 Basophils/100 WBC (Bld) 0.5 % Normal . [facility] Comment on above: Performed By: #### C MP, CBC, TSH3, LIPID #### [address] Automated basophil countOrde red By: Prem Goel on 09-18-2023 Basophils (Bld) [#/Vol] 0.0 10*3/uL Normal 0.0-0.2 [facility] Comment on above: Result Comment: PERF ORMED BY: [place] [address] PATHOLOGIST DOCUMENT PROCESSING SPECIALIST BEV TALBERT M.D. Performed By: #### C MP, CBC, TSH3, LIPID #### [address] Automated blood monocyte cou ntOrdered By: Prem Goel on 09-18-2023 Monocytes (Bld) [#/Vol] 0.4 10*3/uL Normal 0.0-0.8 [facility] Comment on above: Performed By: #### C MP, CBC, TSH3, LIPID #### [address] Automated eosinophil %Ordere d By: Prem Goel on 09-18-2023 Eosinophils/100 WBC (Bld) 2.2 % Normal . [facility] Comment on above: Performed By: #### C MP, CBC, TSH3, LIPID #### [address] Automated eosinophil countOr dered By: Prem Goel on 09-18-2023 Eosinophils (Bld) [#/Vol] 0.1 10*3/uL Normal 0.0-0.45 [facility] Comment on above: Performed By: #### C MP, CBC, TSH3, LIPID #### [facility] [address] Automated monocyte %Ordered By: Prem Goel on 09-18-2023 Monocytes/100 WBC (Bld) 8.0 % Normal . [facility] Comment on above: Performed By: #### C MP, CBC, TSH3, LIPID #### [facility] [address] Automated neutrophil %Ordere d By: Prem Goel on 09-18-2023 Neutrophils/100 WBC (Bld) 36.1 % Normal . [facility] Comment on above: Performed By: #### C MP, CBC, TSH3, LIPID #### [facility] [address] [place] [address] Bilirubin.total [Mass/volume ] in Serum or PlasmaOrdered By: Prem Goel on 09-18-2023 Bilirubin [Mass/Vol] 0.6 mg/dL Normal 0.3-1.[address] [facility] Comment on above: Order Comment: Reaso n for Exam Hyperlipidemia Performed By: #### C MP, CBC, TSH3, LIPID #### [address] Calcium [Mass/volume] in Ser um or PlasmaOrdered By: Prem Goel on 09-18-2023 Calcium [Mass/Vol] 9.5 mg/dL Normal 8.6-10.3 [facility] Comment on above: Order Comment: Reaso n for Exam Hyperlipidemia Performed By: #### C MP, CBC, TSH3, LIPID #### [facility] [address] [place] [address] [place] Carbon dioxide, total [Moles /volume] in Serum or PlasmaOrdered By: Prem Goel on 09-18-2023 CO2 [Moles/Vol] 28.9 mmol/L Normal 21.0-31.0 [facility] Comment on above: Order Comment: Reaso n for Exam Hyperlipidemia Performed By: #### C MP, CBC, TSH3, LIPID #### [facility] [address] [place] [address] [place] Chloride [Moles/volume] in S dede or PlasmaOrdered By: Prem Goel on 09-18-2023 Chloride [Moles/Vol] 104 mmol/L Normal 98-[address] [facility] Comment on above: Order Comment: Reaso n for Exam Hyperlipidemia Performed By: #### C MP, CBC, TSH3, LIPID #### [facility] [address] [place] [address] [place] Cholesterol [Mass/volume] in Serum or PlasmaOrdered By: Prem Goel on 09-18-2023 Cholesterol [Mass/Vol] 289 mg/dL High 140-200 [facility] Comment on above: Chol less than 200 m g/dl low riskChol 201-239 mg/dl borderline riskChol 240 mg/dl and greater high risk Order Comment: Reaso n for Exam Hyperlipidemia Result Comment: Chol less than 200 mg/dl low risk Chol 201-239 mg/dl borderline risk Chol 240 mg/dl and greater high risk Performed By: #### C MP, CBC, TSH3, LIPID #### [facility] [address] [place] [id number] [facility] Cholesterol in LDL Calc [Mas s/Vol]Ordered By: Prem Goel on 09-18-2023 Cholesterol in LDL [Mass/Vol] 197 mg/dL 0-100 [facility] Comment on above: LDL ATP III CLASSIFI CATIONLDL less than 100 mg/dL OptimalLDL 100-129 mg/dL Near or above optimalLDL 130-159 mg/dL Borderline highLDL 160-189 mg/dL HighLDL greater than 189 mg/dL Very high Cholesterol in VLDL Calc [Ma ss/Vol]Ordered By: Prem Goel on 09-18-2023 Cholesterol in VLDL [Mass/Vol] 23 mg/dL [facility] Complete Blood Count Auto Di ffon 09-18-2023 Mean Corpuscular HGB Conc 31.9 g/dL Low 32.0-35.0 [facility] Comment on above: Performed By: #### C MP, CBC, TSH3, LIPID #### [address] NRBC% 0.2 /100{WBC} Normal 0-0.5 [facility] Comment on above: Performed By: #### C MP, CBC, TSH3, LIPID #### [address] Comprehensive Metabolic Pane [place] 09-18-2023 Albumin [Mass/Vol] 4.0 g/dL Normal 3.5-5.7 The Counts include 234 beds at the [facility] Comment on above: Order Comment: Reaso n for Exam Hyperlipidemia Performed By: #### C MP, CBC, TSH3, LIPID #### [address] GFR/1.73 sq M.predicted MDRD (S/P/Bld) [Vol rate/Area] mL/min/{1.73_m2} Normal [facility] Comment on above: Order Comment: Reaso n for Exam Hyperlipidemia Performed By: #### C MP, CBC, TSH3, LIPID #### [address] Creatinine [Mass/volume] in Serum or PlasmaOrdered By: Prem Goel on 09-18-2023 Creatinine [Mass/Vol] 0.79 mg/dL Normal 0.60-1.20 [facility] Comment on above: Order Comment: Reaso n for Exam Hyperlipidemia Performed By: #### C MP, CBC, TSH3, LIPID #### [address] Erythrocyte distribution wid th [Ratio] by Automated countOrdered By: Prem Goel on 09-18-2023 Erythrocyte distribution width (RBC) [Ratio] 13.9 % Normal 11.9-15.3 [facility] Comment on above: Performed By: #### C MP, CBC, TSH3, LIPID #### [address] Erythrocytes [#/volume] in B lood by Automated countOrdered By: Prem Goel on 09-18-2023 RBC (Bld) [#/Vol] 4.87 10*6/uL Normal 3.60-5.00 [facility] Comment on above: Performed By: #### C MP, CBC, TSH3, LIPID #### [facility] [address] [place] [id number] [place] Glucose [Mass/volume] in Ser um or PlasmaOrdered By: Prem Goel on 09-18-2023 Glucose [Mass/Vol] 90 mg/dL Normal 70-100 [facility] Comment on above: ADA recommended refe rence rangeRandom Glucose Reference Range is dependent on time and content of last meal. Glucose of more than 200 mg/dL in a nonstressed, ambulatory subject supports the diagnosis of Diabetes Mellitus. Order Comment: Reaso n for Exam Hyperlipidemia Result Comment: [place] om Glucose Reference Range is dependent on time and content of last meal. Glucose of more than 200 mg/dL in a nonstressed, ambulatory subject supports the diagnosis of Diabetes Mellitus. ADA recommended reference range Performed By: #### C MP, CBC, TSH3, LIPID #### [facility] [address] [place] [id number] [facility] Glucose mean value [Mass/vol ume] in Blood Estimated from glycated hemoglobinOrdered By: Prem Goel on 09-18-2023 Average glucose Estimated from glycated hemoglobin (Bld) [Mass/Vol] 117 mg/dL [facility] Hematocrit [Volume Fraction] of Blood by Automated countOrdered By: Prem Goel on 09-18-2023 Hematocrit (Bld) [Volume fraction] 44.9 % Normal 34.0-46.4 [facility] Comment on above: Performed By: #### C MP, CBC, TSH3, LIPID #### [facility] [address] [place] [id number] [facility] Hemoglobin A1c percentageOrd ered By: Prem Goel on 09-18-2023 HbA1c (Bld) [Mass fraction] 5.7 % High 4.3-5.6 [facility] Comment on above: Increased risk for d iabetes: 5.7 - 6.4diabetes: >6.4glycemic control for adults with diabetes: <7.0 Order Comment: Reaso n for Exam Hyperglycemia Result Comment: Incr eased risk for diabetes: 5.7 - 6.4 diabetes: >6.4 glycemic control for adults with diabetes: <7.0 Performed By: #### A 1C WT eA #### [facility] [address] Hemoglobin [Mass/volume] in BloodOrdered By: Prem Goel on 09-18-2023 Hemoglobin (Bld) [Mass/Vol] 14.3 g/dL Normal 11.8-15.4 [facility] Comment on above: Performed By: #### C MP, CBC, TSH3, LIPID #### [facility] [address] Leukocytes [#/volume] correc guillermina for nucleated erythrocytes in Blood by Automated counOrdered By: Prem Goel on 09-18-2023 WBC corrected for nucl RBC Auto (Bld) [#/Vol] 5.4 10*3/uL 3.8-11.6 [facility] Leukocytes [#/volume] in Blo od by Automated countOrdered By: Prem Goel on 09-18-2023 WBC (Bld) [#/Vol] 5.4 10*3/uL Normal 3.8-11.6 [facility] Comment on above: Performed By: #### C MP, CBC, TSH3, LIPID #### [facility] [address] Lipid Panelon 09-18-2023 LDL Cholesterol,Calculated 197 mg/dL High 0-100 [facility] Comment on above: Order Comment: Reaso n for Exam Hyperlipidemia Result Comment: LDL ATP III CLASSIFICATION LDL less than 100 mg/dL Optimal LDL 100-129 mg/dL Near or above optimal LDL 130-159 mg/dL Borderline high LDL 160-189 mg/dL High LDL greater than 189 mg/dL Very high Performed By: #### C MP, CBC, TSH3, LIPID #### [facility] [address] Triglyceride w/Reflex 116 mg/dL Normal 0-149 [facility] Comment on above: Order Comment: Reaso n for Exam Hyperlipidemia Result Comment: TRIG ATP III CLASSIFICATION TRIG less than 150 mg/dL Normal TRIG 150-199 mg/dL Borderline high TRIG 200-500 mg/dL High TRIG greater than 500 mg/dL Very high Standard traceable to the Center for Disease Conrtrol and Prevention (CDC) test method. Performed By: #### C MP, CBC, TSH3, LIPID #### [facility] [address] [place] [address] VLDL CHOLESTEROL 23 mg/dL Normal [facility] Comment on above: Order Comment: Reaso n for Exam Hyperlipidemia Performed By: #### C MP, CBC, TSH3, LIPID #### [facility] [address] Lymphocytes [#/volume] in Bl ood by Automated countOrdered By: Prem Goel on 09-18-2023 Lymphocytes (Bld) [#/Vol] 2.9 10*3/uL Normal 1.00-4.8 [facility] Comment on above: Performed By: #### C MP, CBC, TSH3, LIPID #### [facility] [address] [place] [address] Lymphocytes/100 leukocytes i n Blood by Automated countOrdered By: Prem Goel on 09-18-2023 Lymphocytes/100 WBC (Bld) 53.2 % Normal . [facility] Comment on above: Performed By: #### C MP, CBC, TSH3, LIPID #### [facility] [address] [place] [address] MCH [Entitic mass] by Automa guillermina countOrdered By: Prem Goel on 09-18-2023 MCH (RBC) [Entitic mass] 29.4 pg Normal 24.7-34.3 [facility] Comment on above: Performed By: #### C MP, CBC, TSH3, LIPID #### [facility] [address] [place] [address] MCHC Auto (RBC) [Mass/Vol]Or dered By: Prem Goel on 09-18-2023 MCHC (RBC) [Mass/Vol] 31.9 g/dL 32.0-35.0 [facility] MCV [Entitic volume] by Auto mated countOrdered By: Prem Goel on 09-18-2023 MCV (RBC) [Entitic vol] 92.3 fL Normal 80-100 [facility] Comment on above: Performed By: #### C MP, CBC, TSH3, LIPID #### [facility] [address] [place] [address] Neutrophils [#/volume] in Bl ood by Automated countOrdered By: Prem Goel on 09-18-2023 Neutrophils (Bld) [#/Vol] 1.9 10*3/uL Normal 1.8-7.7 [facility] Comment on above: Performed By: #### C MP, CBC, TSH3, LIPID #### [facility] [address] [place] [address] No Panel InformationOrdered By: Prem Goel on 09-18-2023 Estimated GFR (CKD-EPI) > 60.0 mL/Min [facility] Creatinine Clearance (Chem N/A [facility] Nucleated erythrocytes [Pres ence] in Blood by Automated countOrdered By: Prem Goel on 09-18-2023 Nucleated RBC Auto Ql (Bld) 0.2 /100{WBC} 0-0.5 [facility] Platelet mean volume [Entiti c volume] in Blood by Automated countOrdered By: Prem Goel on 09-18-2023 Platelet mean volume (Bld) [Entitic vol] 10.4 fL Normal 6.3-10.7 [facility] Comment on above: Performed By: #### C MP, CBC, TSH3, LIPID #### [facility] [address] [place] [address] Platelets [#/volume] in Bloo d by Automated countOrdered By: Prem Goel on 09-18-2023 Platelets (Bld) [#/Vol] 230 10*3/uL Normal 150-450 [facility] Comment on above: Performed By: #### C MP, CBC, TSH3, LIPID #### [facility] [address] [place] [address] Potassium [Moles/volume] in Serum or PlasmaOrdered By: Prem Goel on 09-18-2023 Potassium [Moles/Vol] 4.2 mmol/L Normal 3.5-5.1 [facility] Comment on above: Order Comment: Reaso n for Exam Hyperlipidemia Performed By: #### C MP, CBC, TSH3, LIPID #### [facility] [address] Protein [Mass/volume] in Ser um or PlasmaOrdered By: Prem Goel on 09-18-2023 Protein [Mass/Vol] 6.4 g/dL Normal 6.4-8.9 [facility] Comment on above: Order Comment: Reaso n for Exam Hyperlipidemia Performed By: #### C MP, CBC, TSH3, LIPID #### [facility] [address] Serum globulin measurement b y calculation (mass/volume)Ordered By: Prem Goel on 09-18-2023 Globulin (S) [Mass/Vol] 2.4 g/dL Normal [facility] Comment on above: Order Comment: Reaso n for Exam Hyperlipidemia Performed By: #### C MP, CBC, TSH3, LIPID #### [facility] [address] [place] [address] Serum or plasma albumin/glob ulin mass ratioOrdered By: Prem Goel on 09-18-2023 Albumin/Globulin [Mass ratio] 1.7 {ratio} Normal [facility] Comment on above: Order Comment: Reaso n for Exam Hyperlipidemia Performed By: #### C MP, CBC, TSH3, LIPID #### [facility] [address] [place] [address] Serum or plasma anion gap de terminationOrdered By: Prem Goel on 09-18-2023 Anion gap [Moles/Vol] 12.3 mmol/L Normal 6.0-15.0 [facility] Comment on above: Order Comment: Reaso n for Exam Hyperlipidemia Performed By: #### C MP, CBC, TSH3, LIPID #### [facility] [address] [place] [address] Serum or plasma high density lipoprotein (HDL) cholesterol measurementOrdered By: Prem Goel on 09-18-2023 Cholesterol in HDL [Mass/Vol] 69 mg/dL Normal 23-92 [facility] Comment on above: HDL CHOL ATP-III CLA SSIFICATION Cardiovascular RiskHDL > or equal to 60 mg/dL LOWHDL < 40 mg/dL HIGH Order Comment: Reaso n for Exam Hyperlipidemia Result Comment: HDL CHOL ATP-III CLASSIFICATION Cardiovascular Risk HDL > or equal to 60 mg/dL LOW HDL < 40 mg/dL HIGH Performed By: #### C MP, CBC, TSH3, LIPID #### [facility] [address] Serum or plasma total choles terol/high density lipoprotein (HDL) cholesterol mass ratOrdered By: Prem Goel on 09-18-2023 Cholesterol.total/Araceli sterol in HDL [Mass ratio] 4.2 {ratio} Normal <5.0 [facility] Comment on above: Order Comment: Reaso n for Exam Hyperlipidemia Performed By: #### C MP, CBC, TSH3, LIPID #### [facility] [address] [place] [address] Sodium [Moles/volume] in Ser um or PlasmaOrdered By: Prem Goel on 09-18-2023 Sodium [Moles/Vol] 141 mmol/L Normal 136-145 [facility] Comment on above: Order Comment: Reaso n for Exam Hyperlipidemia Performed By: #### C MP, CBC, TSH3, LIPID #### [facility] [address] [place] [address] Thyrotropin [Units/volume] i n Serum or PlasmaOrdered By: Prem Goel on 09-18-2023 TSH Qn 2.60 m[IU]/L Normal 0.45-5.33 [facility] Comment on above: Order Comment: Reaso n for Exam Hyperlipidemia Result Comment: PERF ORMED BY: [place] [address] PATHOLOGIST DOCUMENT PROCESSING SPECIALIST BEV TALBERT M.D. Performed By: #### C MP, CBC, TSH3, LIPID #### [facility] [address] [place] [address] [place] Triglyceride [Mass/volume] i n Serum or PlasmaOrdered By: Prem Goel on 09-18-2023 Triglyceride [Mass/Vol] 116 mg/dL 0-149 F [facility] Comment on above: TRIG ATP III CLASSIF ICATIONTRIG less than 150 mg/dL NormalTRIG 150-199 mg/dL Borderline highTRIG 200-500 mg/dL High TRIG greater than 500 mg/dL Very highStandard traceable to the Center for Disease Conrtrol and Prevention (CDC) test method. Urea nitrogen [Mass/volume] in Serum or PlasmaOrdered By: Prem Goel on 09-18-2023 Urea nitrogen [Mass/Vol] 17 mg/dL Normal 7-25 [facility] Comment on above: Order Comment: Reaso n for Exam Hyperlipidemia Performed By: #### C MP, CBC, TSH3, LIPID #### [facility] [address] Basophils Auto (Bld) [#/Vol] on 08-07-2023 Basophils (Bld) [#/Vol] 0.0 10 3/uL 0.0-0.1 [facility] Basophils/100 WBC Auto (Bld) on 08-07-2023 Basophils/100 WBC (Bld) 0.5 % 0.2-2.0 F [facility] Eosinophils/100 WBC Auto (Bl d)on 08-07-2023 Eosinophils/100 WBC (Bld) 1.1 % 0.9-7.0 [facility] Erythrocyte distribution wid th Auto (RBC) [Ratio]on 08-07-2023 Erythrocyte distribution width (RBC) [Ratio] 12.6 % 11.0-15.0 [facility] Estimated glomerular filtrat ion rate (GFR) non- Americanon 08-07-2023 GFR/1.73 sq M.predicted among non-blacks MDRD (S/P/Bld) [Vol rate/Area] mL/min/{1.73_m2} >=60 [facility] Globulin Calc (S) [Mass/Vol] on 08-07-2023 Globulin (S) [Mass/Vol] 3.8 g/dL F [facility] Hematocrit Auto (Bld) [Volum e fraction]on 08-07-2023 Hematocrit (Bld) [Volume fraction] 48.4 % 36.0-48.0 [facility] Hemoglobin [Mass/volume] in Bloodon 08-07-2023 Hemoglobin (Bld) [Mass/Vol] 15.4 g/dL 12.0-16.0 [facility] Laboratory - Chemistry and C hemistry - challengeon 08-07-2023 Albumin [Mass/Vol] 3.4 g/dL 3.4-5.0 [facility] ALP [Catalytic activity/Vol] 118 U/L 46-116 [facility] ALT [Catalytic activity/Vol] 23 U/L 14-59 [facility] AST [Catalytic activity/Vol] 20 U/L 15-37 [facility] Bilirubin [Mass/Vol] 0.4 mg/dL 0.2-1.[address] [facility] Calcium [Mass/Vol] 9.4 mg/dL 8.5-10.1 [facility] Chloride [Moles/Vol] 106 mmol/L 98-[address] [facility] CO2 [Moles/Vol] 28.0 mmol/L 21.0-32.0 [facility] Creatinine [Mass/Vol] 0.80 mg/dL 0.55-1.02 [facility] GFR/1.73 sq M.predicted MDRD (S/P/Bld) [Vol rate/Area] mL/min/{1.73_m2} >=60 [facility] Glucose [Mass/Vol] 121 mg/dL 74-106 [facility] Potassium [Moles/Vol] 3.9 mmol/L 3.5-5.1 [facility] Protein [Mass/Vol] 7.2 g/dL 6.4-8.2 [facility] Sodium [Moles/Vol] 142 mmol/L 136-145 [facility] Urea nitrogen [Mass/Vol] 20.0 mg/dL 7.0-18.0 [facility] Urea nitrogen/Creatinine [Mass ratio] 25.0 mg/mg [facility] Laboratory - Hematology and Cell countson 08-07-2023 Immature granulocytes/100 WBC (Bld) 0.3 % 0.0-0.5 [facility] Leukocytes [#/volume] correc guillermina for nucleated erythrocytes in Blood by Automated counon 08-07-2023 WBC corrected for nucl RBC Auto (Bld) [#/Vol] 7.5 10 3/uL 4.0-11.0 [facility] Lymphocytes Auto (Bld) [#/Vo l]on 08-07-2023 Lymphocytes (Bld) [#/Vol] 3.4 10 3/uL 1.2-3.8 [facility] Lymphocytes/100 WBC Auto (Bl d)on 08-07-2023 Lymphocytes/100 WBC (Bld) 45.6 % 20.5-60.0 [facility] MCH Auto (RBC) [Entitic mass ]on 08-07-2023 MCH (RBC) [Entitic mass] 29.7 pg 26.7-34.0 [facility] MCHC Auto (RBC) [Mass/Vol]on 08-07-2023 MCHC (RBC) [Mass/Vol] 31.8 g/dL 29.9-35.2 [facility] MCV Auto (RBC) [Entitic vol] on 08-07-2023 MCV (RBC) [Entitic vol] 93.3 fL 81.0-99.0 F [facility] Monocytes Auto (Bld) [#/Vol] on 08-07-2023 Monocytes (Bld) [#/Vol] 0.7 10 3/uL 0.3-0.8 [facility] Monocytes/100 WBC Auto (Bld) on 08-07-2023 Monocytes/100 WBC (Bld) 8.6 % 1.7-12.0 [facility] Neutrophils Auto (Bld) [#/Vo l]on 08-07-2023 Neutrophils (Bld) [#/Vol] 3.3 10 3/uL 1.4-6.5 [facility] Neutrophils/100 WBC Auto (Bl d)on 08-07-2023 Neutrophils/100 WBC (Bld) 43.9 % 43.0-75.0 [facility] No Panel Informationon 08-06 Eosinophils # (Auto) 0.1 10 3/uL 0.0-0.7 [facility] Immature Granulocyte # (Auto) 0.02 10 3/uL 0.00-0.03 [facility] Platelet mean volume Auto (B ld) [Entitic vol]on 08-07-2023 Platelet mean volume (Bld) [Entitic vol] 12.5 fL 9.5-13.5 [facility] Platelets Auto (Bld) [#/Vol] on 08-07-2023 Platelets (Bld) [#/Vol] 238 10 3/uL 150-450 [facility] RBC Auto (Bld) [#/Vol]on RBC (Bld) [#/Vol] 5.19 10 6/uL 4.20-5.40 [facility] Serum or plasma albumin/glob ulin mass ratioon 08-07-2023 Albumin/Globulin [Mass ratio] 0.9 {ratio} [facility] Serum or plasma anion gap de terminationon 08-07-2023 Anion gap [Moles/Vol] 11.9 mmol/L Fi [facility] Alanine aminotransferase [En zymatic activity/volume] in Serum or PlasmaOrdered By: Prem Goel on 03-12-2023 ALT [Catalytic activity/Vol] 11 U/L 7-52 [facility] Albumin [Mass/volume] in Ser um or Plasma by Bromocresol green (BCG) dye binding methoOrdered By: Prem Goel on 03-12-2023 Albumin BCG dye [Mass/Vol] 3.9 g/dL 3.5-5.7 [facility] Alkaline phosphatase [Enzyma tic activity/volume] in Serum or PlasmaOrdered By: Prem Goel on 03-12-2023 ALP [Catalytic activity/Vol] 89 U/L 34-104 [facility] Aspartate aminotransferase [ Enzymatic activity/volume] in Serum or PlasmaOrdered By: Prem Goel on 03-12-2023 AST [Catalytic activity/Vol] 15 U/L 13-39 [facility] Basophils Auto (Bld) [#/Vol] Ordered By: Prem Goel on 03-12-2023 Basophils (Bld) [#/Vol] 0.0 10*3/uL 0.0-0.2 [facility] Basophils/100 WBC Auto (Bld) Ordered By: Prem Goel on 03-12-2023 Basophils/100 WBC (Bld) 0.7 % . F [facility] Bilirubin.total [Mass/volume ] in Serum or PlasmaOrdered By: Prem Goel on 03-12-2023 Bilirubin [Mass/Vol] 0.6 mg/dL 0.3-1.[address] [facility] Calcium [Mass/volume] in Ser um or PlasmaOrdered By: Prem Goel on 03-12-2023 Calcium [Mass/Vol] 9.4 mg/dL 8.6-10.3 [facility] Carbon dioxide, total [Moles /volume] in Serum or PlasmaOrdered By: Prem Goel on 03-12-2023 CO2 [Moles/Vol] 28.2 mmol/L 21.0-31.0 [facility] Chloride [Moles/volume] in S dede or PlasmaOrdered By: Prem Goel on 03-12-2023 Chloride [Moles/Vol] 107 mmol/L 98-[address] [facility] Cholesterol [Mass/volume] in Serum or PlasmaOrdered By: Prem Goel on 03-12-2023 Cholesterol [Mass/Vol] 228 mg/dL 140-200 [facility] Comment on above: Chol less than 200 m g/dl low riskChol 201-239 mg/dl borderline riskChol 240 mg/dl and greater high risk Cholesterol in LDL Calc [Mas s/Vol]Ordered By: Prem Goel on 03-12-2023 Cholesterol in LDL [Mass/Vol] 146 mg/dL 0-100 [facility] Comment on above: LDL ATP III CLASSIFI CATIONLDL less than 100 mg/dL OptimalLDL 100-129 mg/dL Near or above optimalLDL 130-159 mg/dL Borderline highLDL 160-189 mg/dL HighLDL greater than 189 mg/dL Very high Cholesterol in VLDL Calc [Ma ss/Vol]Ordered By: Prem Goel on 03-12-2023 Cholesterol in VLDL [Mass/Vol] 15 mg/dL [facility] Creatinine [Mass/volume] in Serum or PlasmaOrdered By: Prem Goel on 03-12-2023 Creatinine [Mass/Vol] 0.77 mg/dL 0.60-1.20 [facility] Eosinophils Auto (Bld) [#/Vo l]Ordered By: Prem Goel on 03-12-2023 Eosinophils (Bld) [#/Vol] 0.1 10*3/uL 0.0-0.45 [facility] Eosinophils/100 WBC Auto (Bl d)Ordered By: Prem Goel on 03-12-2023 Eosinophils/100 WBC (Bld) 2.3 % . [facility] Erythrocyte distribution wid th Auto (RBC) [Ratio]Ordered By: Prem Goel on 03-12-2023 Erythrocyte distribution width (RBC) [Ratio] 12.9 % 11.9-15.3 [facility] Globulin Calc (S) [Mass/Vol] Ordered By: Prem Goel on 03-12-2023 Globulin (S) [Mass/Vol] 2.2 g/dL F [facility] Glucose [Mass/volume] in Ser um or PlasmaOrdered By: Prem Goel on 03-12-2023 Glucose [Mass/Vol] 96 mg/dL 70-100 [facility] Comment on above: ADA recommended refe rence rangeRandom Glucose Reference Range is dependent on time and content of last meal. Glucose of more than 200 mg/dL in a nonstressed, ambulatory subject supports the diagnosis of Diabetes Mellitus. Hematocrit Auto (Bld) [Volum e fraction]Ordered By: Prem Goel on 03-12-2023 Hematocrit (Bld) [Volume fraction] 45.2 % 34.0-46.4 [facility] Hemoglobin [Mass/volume] in BloodOrdered By: Prem Goel on 03-12-2023 Hemoglobin (Bld) [Mass/Vol] 14.9 g/dL 11.8-15.4 [facility] Leukocytes [#/volume] correc guillermina for nucleated erythrocytes in Blood by Automated counOrdered By: Prem Goel on 03-12-2023 WBC corrected for nucl RBC Auto (Bld) [#/Vol] 6.1 10*3/uL 3.8-11.6 [facility] Lymphocytes Auto (Bld) [#/Vo l]Ordered By: Prem Goel on 03-12-2023 Lymphocytes (Bld) [#/Vol] 2.6 10*3/uL 1.00-4.8 [facility] Lymphocytes/100 WBC Auto (Bl d)Ordered By: Prem Goel on 03-12-2023 Lymphocytes/100 WBC (Bld) 42.3 % . [facility] MCH Auto (RBC) [Entitic mass ]Ordered By: Prem Goel on 03-12-2023 MCH (RBC) [Entitic mass] 29.8 pg 24.7-34.3 [facility] MCHC Auto (RBC) [Mass/Vol]Or dered By: Prem Goel on 03-12-2023 MCHC (RBC) [Mass/Vol] 33.0 g/dL 32.0-35.0 [facility] MCV Auto (RBC) [Entitic vol] Ordered By: Prem Goel on 03-12-2023 MCV (RBC) [Entitic vol] 90.5 fL 80-100 [facility] Monocytes Auto (Bld) [#/Vol] Ordered By: Prem Goel on 03-12-2023 Monocytes (Bld) [#/Vol] 0.6 10*3/uL 0.0-0.8 [facility] Monocytes/100 WBC Auto (Bld) Ordered By: Prem Goel on 03-12-2023 Monocytes/100 WBC (Bld) 9.1 % . [facility] Neutrophils Auto (Bld) [#/Vo l]Ordered By: Prem Goel on 03-12-2023 Neutrophils (Bld) [#/Vol] 2.8 10*3/uL 1.8-7.7 [facility] Neutrophils/100 WBC Auto (Bl d)Ordered By: Prem Goel on 03-12-2023 Neutrophils/100 WBC (Bld) 45.6 % . [facility] [facility] No Panel InformationOrdered By: Prem Goel on 03-12-2023 Estimated GFR (CKD-EPI) > 60.0 mL/Min [facility] Creatinine Clearance (Chem N/A [facility] Nucleated erythrocytes [Pres ence] in Blood by Automated countOrdered By: Prem Goel on 03-12-2023 Nucleated RBC Auto Ql (Bld) 0.1 /100{WBC} 0-0.5 [facility] Platelet mean volume Auto (B ld) [Entitic vol]Ordered By: Prem Goel on 03-12-2023 Platelet mean volume (Bld) [Entitic vol] 10.2 fL 6.3-10.7 [facility] Platelets Auto (Bld) [#/Vol] Ordered By: Prem Goel on 03-12-2023 Platelets (Bld) [#/Vol] 201 10*3/uL 150-450 [facility] Potassium [Moles/volume] in Serum or PlasmaOrdered By: Prem Goel on 03-12-2023 Potassium [Moles/Vol] 4.3 mmol/L 3.5-5.1 [facility] Protein [Mass/volume] in Ser um or PlasmaOrdered By: Prem Goel on 03-12-2023 Protein [Mass/Vol] 6.1 g/dL 6.4-8.9 [facility] RBC Auto (Bld) [#/Vol]Ordere d By: Prem Goel on 03-12-2023 RBC (Bld) [#/Vol] 4.99 10*6/uL 3.60-5.00 [facility] Serum or plasma albumin/glob ulin mass ratioOrdered By: Prem Goel on 03-12-2023 Albumin/Globulin [Mass ratio] 1.8 {ratio} [facility] Serum or plasma anion gap de terminationOrdered By: Prem Goel on 03-12-2023 Anion gap [Moles/Vol] 10.1 mmol/L 6.0-15.0 [facility] Serum or plasma high density lipoprotein (HDL) cholesterol measurementOrdered By: Prem Goel on 03-12-2023 Cholesterol in HDL [Mass/Vol] 66 mg/dL 23-92 [facility] Comment on above: HDL CHOL ATP-III CLA SSIFICATION Cardiovascular RiskHDL > or equal to 60 mg/dL LOWHDL < 40 mg/dL HIGH Serum or plasma total choles terol/high density lipoprotein (HDL) cholesterol mass ratOrdered By: Prem Goel on 03-12-2023 Cholesterol.total/Araceli sterol in HDL [Mass ratio] 3.5 {ratio} <5.0 [facility] Sodium [Moles/volume] in Ser um or PlasmaOrdered By: Prem Goel on 10-05-2023 Sodium [Moles/Vol] 141 mmol/L 136-145 [facility] Thyrotropin [Units/volume] i n Serum or PlasmaOrdered By: Prem Goel on 03-12-2023 TSH Qn 1.91 m[IU]/L 0.45-5.33 [facility] Triglyceride [Mass/volume] i n Serum or PlasmaOrdered By: Prem Goel on 03-12-2023 Triglyceride [Mass/Vol] 78 mg/dL 0-149 F [facility] Comment on above: TRIG ATP III CLASSIF ICATIONTRIG less than 150 mg/dL NormalTRIG 150-199 mg/dL Borderline highTRIG 200-500 mg/dL High TRIG greater than 500 mg/dL Very highStandard traceable to the Center for Disease Conrtrol and Prevention (CDC) test method. Urea nitrogen [Mass/volume] in Serum or PlasmaOrdered By: Prem Goel on 03-12-2023 Urea nitrogen [Mass/Vol] 18 mg/dL 7-25 [facility] WBC Auto (Bld) [#/Vol]Ordere d By: Prem Goel on 03-12-2023 WBC (Bld) [#/Vol] 6.1 10*3/uL 3.8-11.6 [facility] Albumin [Mass/volume] in Ser um or PlasmaOrdered By: Prem Goel on 04-29-2022 Albumin [Mass/Vol] 3.4 g/dL 3.2-5.5 [facility] Basophils Auto (Bld) [#/Vol] Ordered By: Prem Goel on 04-29-2022 Basophils (Bld) [#/Vol] 0.0 10*3/uL 0.0-0.2 [facility] Basophils/100 WBC Auto (Bld) Ordered By: Prem Goel on 04-29-2022 Basophils/100 WBC (Bld) 0.3 % . F [facility] Cholesterol [Mass/volume] in Serum or PlasmaOrdered By: Prem Goel on 04-29-2022 Cholesterol [Mass/Vol] 196 mg/dL 140-200 [facility] Comment on above: Chol less than 200 m g/dl low riskChol 201-239 mg/dl borderline riskChol 240 mg/dl and greater high risk Cholesterol in LDL Calc [Mas s/Vol]Ordered By: Prem Goel on 04-29-2022 Cholesterol in LDL [Mass/Vol] 109 mg/dL 0-100 [facility] Comment on above: LDL ATP III CLASSIFI CATIONLDL less than 100 mg/dL OptimalLDL 100-129 mg/dL Near or above optimalLDL 130-159 mg/dL Borderline highLDL 160-189 mg/dL HighLDL greater than 189 mg/dL Very high Cholesterol in VLDL Calc [Ma ss/Vol]Ordered By: Prem Goel on 04-29-2022 Cholesterol in VLDL [Mass/Vol] 10 mg/dL [facility] Creatinine and Glomerular fi ltration rate.predicted panel (S/P/Bld)Ordered By: Prem Goel on 04-29-2022 Creatinine [Mass/Vol] 0.80 mg/dL 0.44-1.03 [facility] Eosinophils Auto (Bld) [#/Vo l]Ordered By: Perm Goel on 04-29-2022 Eosinophils (Bld) [#/Vol] 0.1 10*3/uL 0.0-0.45 [facility] Eosinophils/100 WBC Auto (Bl d)Ordered By: Prem Goel on 04-29-2022 Eosinophils/100 WBC (Bld) 0.5 % . [facility] Erythrocyte distribution wid th Auto (RBC) [Ratio]Ordered By: Prem Goel on 04-29-2022 Erythrocyte distribution width (RBC) [Ratio] 13.4 % 11.9-15.3 [facility] Estimated glomerular filtrat ion rate (GFR) non- AmericanOrdered By: Prem Goel on 04-29-2022 GFR/1.73 sq M.predicted among non-blacks MDRD (S/P/Bld) [Vol rate/Area] > 60 mL/Min [facility] Globulin Calc (S) [Mass/Vol] Ordered By: Prem Goel on 04-29-2022 Globulin (S) [Mass/Vol] 3.3 g/dL F [facility] Hematocrit Auto (Bld) [Volum e fraction]Ordered By: Prem Goel on 04-29-2022 Hematocrit (Bld) [Volume fraction] 46.2 % 34.0-46.4 [facility] Hemoglobin [Mass/volume] in BloodOrdered By: Prem Goel on 04-29-2022 Hemoglobin (Bld) [Mass/Vol] 14.9 g/dL 11.8-15.4 [facility] - Hematology and Cell countsOrdered By: Prem Goel on 04-29-2022 Nucleated RBC/100 WBC (Bld) [Ratio] 0.0 % 0-0.5 [facility] Leukocytes [#/volume] in Blo od by Automated countOrdered By: Prem Goel on 04-29-2022 WBC (Bld) [#/Vol] 10.7 10*3/uL 4.5-11.0 [facility] Lymphocytes Auto (Bld) [#/Vo l]Ordered By: Prem Goel on 04-29-2022 Lymphocytes (Bld) [#/Vol] 1.9 10*3/uL 1.00-4.8 [facility] Lymphocytes/100 WBC Auto (Bl d)Ordered By: Prem Goel on 04-29-2022 Lymphocytes/100 WBC (Bld) 17.7 % . [facility] MCH Auto (RBC) [Entitic mass ]Ordered By: Prem Goel on 04-29-2022 MCH (RBC) [Entitic mass] 30.0 pg 24.7-34.3 [facility] MCHC Auto (RBC) [Mass/Vol]Or dered By: Prem Goel on 04-29-2022 MCHC (RBC) [Mass/Vol] 32.1 g/dL 32.0-35.0 [facility] MCV Auto (RBC) [Entitic vol] Ordered By: Prem Goel on 04-29-2022 MCV (RBC) [Entitic vol] 93.4 fL 80-100 F [facility] Monocytes Auto (Bld) [#/Vol] Ordered By: Prem Goel on 04-29-2022 Monocytes (Bld) [#/Vol] 1.1 10*3/uL 0.0-0.8 [facility] Monocytes/100 WBC Auto (Bld) Ordered By: Prem Goel on 04-29-2022 Monocytes/100 WBC (Bld) 10.4 % . F [facility] Neutrophils Auto (Bld) [#/Vo l]Ordered By: Prem Goel on 04-29-2022 Neutrophils (Bld) [#/Vol] 7.6 10*3/uL 1.8-7.7 [facility] Neutrophils/100 WBC Auto (Bl d)Ordered By: Prem Goel on 04-29-2022 Neutrophils/100 WBC (Bld) 71.1 % . [facility] No Panel InformationOrdered By: Prem Goel on 04-29-2022 Estimated GFR () > 60 mL/Min [facility] Comment on above: GFR estimated refere nce range: According to KDOQI guidelines, <60 ml/min/1.73m2 is sufficient to diagnose a patient with chronic kidney disease. Pharmacy Creatinine Clearance (Chem N/A [facility] Platelet mean volume Auto (B ld) [Entitic vol]Ordered By: Prem Goel on 04-29-2022 Platelet mean volume (Bld) [Entitic vol] 10.2 fL 6.3-10.7 [facility] Platelets Auto (Bld) [#/Vol] Ordered By: Prem Goel on 04-29-2022 Platelets (Bld) [#/Vol] 238 10*3/uL 150-450 [facility] Protein [Mass/volume] in Ser um or PlasmaOrdered By: Prem Goel on 04-29-2022 Protein [Mass/Vol] 6.7 g/dL 6.1-7.9 [facility] RBC Auto (Bld) [#/Vol]Ordere d By: Prem Goel on 04-29-2022 RBC (Bld) [#/Vol] 4.95 10*6/uL 3.60-5.00 [facility] Serum or plasma alanine tobias otransferase measurement without P-5'-P (enzymatic activiOrdered By: Prem Goel on 04-29-2022 ALT No additional P-5'-P [Catalytic activity/Vol] 18 U/L 10-60 [facility] Serum or plasma albumin/glob ulin mass ratioOrdered By: Prem Goel on 04-29-2022 Albumin/Globulin [Mass ratio] 1.0 {ratio} [facility] Serum or plasma alkaline joshua sphatase measurement (enzymatic activity/volume)Ordered By: Prem Goel on 04-29-2022 ALP [Catalytic activity/Vol] 100 U/L 32-92 [facility] Serum or plasma anion gap de terminationOrdered By: Perm Geol on 04-29-2022 Anion gap [Moles/Vol] 10.5 mmol/L 6.0-15.0 [facility] Serum or plasma aspartate am inotransferase measurement (enzymatic activity/volume)Ordered By: Prem Goel on 04-29-2022 AST [Catalytic activity/Vol] 19 U/L 10-42 [facility] Serum or plasma calcium erica urement (mass/volume)Ordered By: Prem Goel on 04-29-2022 Calcium [Mass/Vol] 9.2 mg/dL 8.2-10.2 [facility] Serum or plasma chloride omaira surement (moles/volume)Ordered By: Prem Goel on 04-29-2022 Chloride [Moles/Vol] 102 mmol/L 95-[address] [facility] Serum or plasma glucose erica urement (mass/volume)Ordered By: Prem Goel on 04-29-2022 Glucose [Mass/Vol] 111 mg/dL 70-100 [facility] Comment on above: ADA recommended refe rence rangeRandom Glucose Reference Range is dependent on time and content of last meal. Glucose of more than 200 mg/dL in a nonstressed, ambulatory subject supports the diagnosis of Diabetes Mellitus. Serum or plasma high density lipoprotein (HDL) cholesterol measurementOrdered By: Prem Goel on 04-29-2022 Cholesterol in HDL [Mass/Vol] 76 mg/dL 35-85 [facility] Comment on above: HDL CHOL ATP-III CLA SSIFICATION Cardiovascular RiskHDL > or equal to 60 mg/dL LOWHDL < 40 mg/dL HIGH Serum or plasma potassium me asurement (moles/volume)Ordered By: Prem Goel on 04-29-2022 Potassium [Moles/Vol] 4.0 mmol/L 3.5-5.1 [facility] Serum or plasma sodium measu rement (moles/volume)Ordered By: Prem Goel on 04-29-2022 Sodium [Moles/Vol] 137 mmol/L 136-146 [facility] Serum or plasma total biliru bin measurement (mass/volume)Ordered By: Prem Goel on 04-29-2022 Bilirubin [Mass/Vol] 0.8 mg/dL 0.3-1.[address] [facility] Serum or plasma total carbon dioxide measurement (moles/volume)Ordered By: Prem Goel on 04-29-2022 CO2 [Moles/Vol] 28.5 mmol/L 22.0-30.0 [facility] Serum or plasma total choles terol/high density lipoprotein (HDL) cholesterol mass ratOrdered By: Prem Goel on 04-29-2022 Cholesterol.total/Araceli sterol in HDL [Mass ratio] 2.6 {ratio} <5.0 [facility] Serum or plasma urea nitroge n measurement (mass/volume)Ordered By: Prem Goel on 04-29-2022 Urea nitrogen [Mass/Vol] 14 mg/dL 02-28 [facility] TSH DL <= 0.005 mIU/L QnOrde red By: Prem Goel on 04-29-2022 TSH Qn 1.74 m[IU]/L 0.45-5.33 [facility] Triglyceride [Mass/volume] i n Serum or PlasmaOrdered By: Prem Goel on 04-29-2022 Triglyceride [Mass/Vol] 53 mg/dL 35-149 F [facility] Comment on above: TRIG ATP III CLASSIF ICATIONTRIG less than 150 mg/dL NormalTRIG 150-199 mg/dL Borderline highTRIG 200-500 mg/dL High TRIG greater than 500 mg/dL Very highStandard traceable to the Center for Disease Conrtrol and Prevention (CDC) test method. A1C HEMOGLOBINon 04-30-2021 HbA1c (Bld) [Mass fraction] 5.8 % [place] Other HbA1c (Bld) [Mass fraction]o n 04-30-2021 A[facility]C [facility]OGLOBIN [facility] CARDIAC STRESS/REST (DOUGLAS CARDIAL PERFUSION/MIBI)on 04-09-2020 [facility] CARDIAC STRESS/REST (MYOCARDIAL PERFUSION/MIBI) Patient Name: MARY WILKERSON STUDY: MYOCARDIAL PERFUSION STRESS TEST WITH LEXISCAN Performing facility: [facility], [address] [place] [address], [address], [place] [address] [facility] Provider: WP SMYTH PCP: Dr. PREM GOEL Supervising provider: WP SMYTH INDICATION: CP HISTORY: Gender: F; Age: 84 y/o ; Height: 157.48 cm; Weight: 78.5521268 kg. High Cholesterol; CP Family HX CAD; Denies smoking. COMPARISON: Previous nuclear testing completed at [facility]. ACCESSION NUMBER(S): [id number] ORDERING CLINICIAN: MATT SMYTH TECHNIQUE: ONE DAY [...] comparison. Electronically signed by: BRIELLE DUVAL MD [facility] CARDIAC STRESS/REST INJE CTIONon 04-09-2020 [facility] CARDIAC STRESS/REST INJECTION Patient Name: MARY WILKERSON STUDY: MYOCARDIAL PERFUSION STRESS TEST WITH LEXISCAN Performing facility: [facility], [address] [place] [address], [address], [place] [address] [facility] Provider: WP SMYTH PCP: Dr. PREM GOEL Supervising provider: WP SMYTH INDICATION: CP HISTORY: Gender: F; Age: 84 y/o ; Height: 157.48 cm; Weight: 78.5548837 kg. High Cholesterol; CP Family HX CAD; Denies smoking. COMPARISON: Previous nuclear testing completed at [facility]. ACCESSION NUMBER(S): [id number] ORDERING CLINICIAN: MATT SMYTH TECHNIQUE: ONE DAY [...] Electronically signed by: BRIELLE DUVAL MD Normal [facility] PART 2 STRESS OR REST (N O CHARGE)on 04-09-2020 [facility] PART 2 STRESS OR REST (NO CHARGE) Patient Name: MARY WILKERSON STUDY: MYOCARDIAL PERFUSION STRESS TEST WITH LEXISCAN Performing facility: [facility], [address] [place] [address], [address], [place] [address] [facility] Provider: WP SMYTH PCP: Dr. PREM GOEL Supervising provider: WP SMYTH INDICATION: CP HISTORY: Gender: F; Age: 84 y/o ; Height: 157.48 cm; Weight: 78.0391881 kg. High Cholesterol; CP Family HX CAD; Denies smoking. COMPARISON: Previous nuclear testing completed at [facility]. ACCESSION NUMBER(S): [id number] ORDERING CLINICIAN: MATT SMYTH TECHNIQUE: ONE DAY [...] study available for comparison. Electronically signed by: BRILELE DUVAL MD [facility] Vital Signs Date Time Vital Sign Value Performing Clinician Facility 09-06-2024 13:46-0400 Body height 1554.48 cm [facility] 09-06-2024 13:46-0400 Body mass index (BMI) [Ratio] 0.3 kg/m2 [facility] 09-06-2024 13:46-0400 Body temperature 97.1 [degF] [facility] 09-06-2024 13:46-0400 Body weight 72.6 kg [facility] 09-06-2024 13:46-0400 Diastolic blood pressure 98 mm[Hg] [facility] 09-06-2024 13:46-0400 Heart rate 69 /min [facility] 09-06-2024 13:46-0400 Respiratory rate 19 /min [facility] 09-06-2024 13:46-0400 SaO2% (BldA) [Mass fraction] 69 % [facility] 09-06-2024 13:46-0400 Systolic blood pressure 145 mm[Hg] [facility] 04-04-2024 08:12-0400 Body height 154.94 cm DO Prem Kuns Work Phone: [facility] 04-04-2024 08:12-0400 Body mass index (BMI) [Ratio] 30.2 kg/m2 DO Prem Kuns Work Phone: [facility] 04-04-2024 08:12-0400 Body weight 72.57 kg DO Prem Kuns Work Phone: [facility] 04-04-2024 08:12-0400 Diastolic blood pressure 80 mm[Hg] DO Prem Kuns Work Phone: [facility] 04-04-2024 08:12-0400 Heart rate 65 /min DO Prem Kuns Work Phone: [facility] 04-04-2024 08:12-0400 Respiratory rate 16 /min DO Prem Kuns Work Phone: [facility] 04-04-2024 08:12-0400 SaO2% (BldA) [Mass fraction] 97 % DO Prem Kuns Work Phone: [facility] 04-04-2024 08:12-0400 Systolic blood pressure 118 mm[Hg] DO Prem Kuns Work Phone: [facility] 12-29-2023 10:06-0400 Body height 154.94 cm DO Prem Kuns Work Phone: [facility] 12-29-2023 10:06-0400 Body mass index (BMI) [Ratio] 30.2 kg/m2 DO Prem Kuns Work Phone: [facility] 12-29-2023 10:06-0400 Body weight 72.57 kg DO Prem Kuns Work Phone: [facility] 12-29-2023 10:06-0400 Diastolic blood pressure 80 mm[Hg] DO Prem Kuns Work Phone: [facility] 12-29-2023 10:06-0400 Heart rate 56 /min DO Prem Kuns Work Phone: [facility] 12-29-2023 10:06-0400 Respiratory rate 16 /min DO Prem Kuns Work Phone: [facility] 12-29-2023 10:06-0400 SaO2% (BldA) [Mass fraction] 96 % DO Prem Kuns Work Phone: [facility] 12-29-2023 10:06-0400 Systolic blood pressure 124 mm[Hg] DO Prem Kuns Work Phone: [facility] 09-24-2023 09:41-0400 Body height 154.94 cm DO Prem Kuns Work Phone: [facility] 09-24-2023 09:41-0400 Body mass index (BMI) [Ratio] 30.9 kg/m2 DO Prem Kuns Work Phone: [facility] 09-24-2023 09:41-0400 Body weight 74.38 kg DO Prem Kuns Work Phone: [facility] 09-24-2023 09:41-0400 Diastolic blood pressure 80 mm[Hg] DO Prem Kuns Work Phone: [facility] 09-24-2023 09:41-0400 Heart rate 57 /min DO Prem Kuns Work Phone: [facility] 09-24-2023 09:41-0400 Respiratory rate 16 /min DO Prem Kuns Work Phone: [facility] 09-24-2023 09:41-0400 SaO2% (BldA) [Mass fraction] 92 % DO Prem Kuns Work Phone: [facility] 09-24-2023 09:41-0400 Systolic blood pressure 138 mm[Hg] DO Prem Kuns Work Phone: [facility] 03-17-2023 08:45-0400 Body height 154.94 cm Premsaloni Cabezass Other [facility] Other 03-17-2023 08:45-0400 Body mass index (BMI) [Ratio] 30.98 kg/m2 Prem Raulitos Other [facility] Other 03-17-2023 08:45-0400 Body weight 74.39 kg Prem Kuns Other [facility] Other 03-17-2023 08:45-0400 Diastolic blood pressure 76 mm[Hg] Prem Kuns Other [facility] Other 03-17-2023 08:45-0400 Respiratory rate 16 /min Prem [employer] Other [place] Other 03-17-2023 08:45-0400 SaO2% (BldA) [Mass fraction] 96 % Prem Kuns Other [facility] Other 03-17-2023 08:45-0400 Systolic blood pressure 120 mm[Hg] Prem Kuns Other [facility] Other 11-12-2022 14:45-0400 Body height 154.94 cm Prem Kuns Other [facility] Other 11-12-2022 14:45-0400 Body mass index (BMI) [Ratio] 31.36 kg/m2 Prem Kuns Other [facility] Other 11-12-2022 14:45-0400 Body weight 75.3 kg Prem Kuns Other [facility] Other 11-12-2022 14:45-0400 Diastolic blood pressure 68 mm[Hg] Prem Kuns Other [facility] Other 11-12-2022 14:45-0400 Respiratory rate 16 /min Prem Kuns Other [facility] Other 11-12-2022 14:45-0400 SaO2% (BldA) [Mass fraction] 93 % Prem Kuns Other [facility] Other 11-12-2022 14:45-0400 Systolic blood pressure 124 mm[Hg] Prem Kuns Other [facility] Other 01-28-2022 11:15-0400 Body height 154.94 cm Prem Kuns Other [facility] Other 01-28-2022 11:15-0400 Body mass index (BMI) [Ratio] 30.98 kg/m2 Prem Kuns Other [facility] Other 01-28-2022 11:15-0400 Body weight 74.39 kg Prem Kuns Other [facility] Other 01-28-2022 11:15-0400 Diastolic blood pressure 82 mm[Hg] Prem Kuns Other [facility] Other 01-28-2022 11:15-0400 Respiratory rate 18 /min Prem Kuns Other [facility] Other 01-28-2022 11:15-0400 SaO2% (BldA) [Mass fraction] 95 % Prem Kuns Other [facility] Other 01-28-2022 11:15-0400 Systolic blood pressure 142 mm[Hg] Prem Kuns Other [facility] Other 08-15-2021 14:45-0500 Body height 154.94 cm Prem Kuns Other [facility] Other 08-15-2021 14:45-0500 Body mass index (BMI) [Ratio] 30.04 kg/m2 Prem Kuns Other [facility] Other 08-15-2021 14:45-0500 Body weight 72.12 kg Prem Kuns Other [facility] Other 08-15-2021 14:45-0500 Diastolic blood pressure 80 mm[Hg] Prem Kuns Other [facility] Other 08-15-2021 14:45-0500 Respiratory rate 16 /min Prem Kuns Other [facility] Other 08-15-2021 14:45-0500 SaO2% (BldA) [Mass fraction] 99 % Prem Kuns Other [facility] Other 08-15-2021 14:45-0500 Systolic blood pressure 142 mm[Hg] Prem Kuns Other [facility] Other 04-30-2021 11:45-0500 Body height 154.94 cm Prem Kuns Other [facility] Other 04-30-2021 11:45-0500 Body mass index (BMI) [Ratio] 29.74 kg/m2 Prem Kuns Other [facility] Other 04-30-2021 11:45-0500 Body weight 71.4 kg Prem Kuns Other [facility] Other 04-30-2021 11:45-0500 Diastolic blood pressure 87 mm[Hg] Prem Kuns Other [facility] Other 04-30-2021 11:45-0500 Respiratory rate 18 /min Prem Kuns Other [facility] Other 04-30-2021 11:45-0500 SaO2% (BldA) [Mass fraction] 93 % Prem Kuns Other [facility] Other 11-23-2021 11:45-0500 Systolic blood pressure 136 mm[Hg] Prem Raulitos Other [facility] Other 02-28-2021 11:15-0400 Body height 154.94 cm Premsaloni Cabezass Other [facility] Other 02-28-2021 11:15-0400 Body mass index (BMI) [Ratio] 29.85 kg/m2 Prem Raulitos Other [facility] Other 02-28-2021 11:15-0400 Body weight 71.67 kg Prem Raulitos Other [facility] Other 02-28-2021 11:15-0400 Diastolic blood pressure 86 mm[Hg] Prem Raulitos Other [facility] Other 02-28-2021 11:15-0400 Respiratory rate 16 /min Premsaloni Cabezass Other [facility] Other 02-28-2021 11:15-0400 SaO2% (BldA) [Mass fraction] 97 % Premsaloni Cabezass Other [facility] Other 02-28-2021 11:15-0400 Systolic blood pressure 134 mm[Hg] Prem Raulitos Other [facility] Other Encounters Encounter Date Encounter Type Care Provider Facility Start: 01-30-2025 End: 01-30-2025 ambulatory Isidro Resendiz MD Facility: [facility] Start: 09-06-2024 End: 09-06-2024 ambulatory [facility] Work Phone: Start: 09-06-2024 End: 09-06-2024 Patient encounter procedure [facility] Work Phone: Start: 04-04-2024 End: 04-04-2024 ambulatory DO Prem Kuns Work Phone: [facility] Work Phone: Start: 04-04-2024 End: 04-04-2024 Patient encounter procedure DO Prem Kuns Work Phone: [facility] [place] Work Phone: Start: 04-04-2024 End: 04-04-2024 ambulatory DO Prem Kuns Work Phone: [facility] Work Phone: Start: 04-04-2024 End: 04-04-2024 Patient encounter procedure DO Prem Kuns Work Phone: [facility] Family [facility] [place] Work Phone: Start: 03-30-2024 End: 03-30-2024 Patient encounter procedure DO Prem Kuns Work Phone: [facility] [place] Work Phone: Start: 03-30-2024 End: 03-30-2024 ambulatory DO Prem Kuns Work Phone: [facility] Work Phone: Start: 12-29-2023 End: 12-29-2023 ambulatory DO Prem Kuns Work Phone: [facility] Work Phone: Start: 12-29-2023 End: 12-29-2023 Patient encounter procedure DO Prem Kuns Work Phone: [facility] [place] Work Phone: Start: 10-12-2023 End: 10-12-2023 ambulatory DO Prem Kuns Work Phone: [facility] Work Phone: Start: 10-12-2023 End: 10-12-2023 Patient encounter procedure DO Prem Kuns Work Phone: [facility] [place] Work Phone: Start: 10-06-2023 End: 10-06-2023 Patient encounter procedure DO Prem Kuns Work Phone: [facility] Work Phone: Start: 10-06-2023 End: 10-06-2023 ambulatory DO Prem Kuns Work Phone: [facility] Work Phone: Start: 09-24-2023 End: 09-24-2023 ambulatory DO Prem Kuns Work Phone: [facility] Work Phone: Start: 09-24-2023 End: 09-24-2023 Patient encounter procedure DO Prem Kuns Work Phone: [facility] [place] Work Phone: Start: 09-18-2023 End: 09-18-2023 Patient encounter procedure DO Prem Kuns Work Phone: [facility] [place] Work Phone: Start: 09-18-2023 End: 09-18-2023 ambulatory DO Prem Kuns Work Phone: [facility] Work Phone: Start: 08-11-2023 Non-patient / Non-visit DO Prem Kuns Work Phone: [facility] Work Phone: Start: 08-07-2023 Non-patient / Non-visit DO Prem Kuns Work Phone: [facility] Work Phone: Start: 08-03-2023 Non-patient / Non-visit DO Prem Kuns Work Phone: [facility] Work Phone: Start: 05-27-2023 End: 05-27-2023 ambulatory Prem Kuns Other [facility] Other Start: 05-27-2023 Telephone encounter Prem Kuns [facility] [place] Start: 03-17-2023 End: 03-17-2023 ambulatory Prem Kuns Other [facility] Other Start: 03-17-2023 Office outpatient visit 25 minutes Prem Kuns [facility] [place] Start: 03-12-2023 End: 03-12-2023 ambulatory DO Prem Kuns Work Phone: [facility] Work Phone: Start: 03-12-2023 End: 03-12-2023 Patient encounter procedure DO Prem Kuns Work Phone: [facility] [place] Work Phone: Start: 01-30-2023 End: 01-30-2023 ambulatory Prem Kuns Other [facility] Other Start: 01-30-2023 Telephone encounter Prem Kuns [facility] [place] Start: 11-12-2022 End: 11-12-2022 ambulatory Prem Kuns Other [facility] Other Start: 11-12-2022 Office outpatient visit 25 minutes Prem Kuns [facility] [place] Start: 11-04-2022 End: 11-04-[address] PREM GOEL Facility:H1 Start: 11-04-2022 Telephone encounter Prem Kuns [facility] [place] Start: 10-14-2022 End: 10-14-[address] PREM GOEL Facility:[facility]1 Start: 10-02-2022 End: 10-03-2022 ambulatory DONELL GOLDSTEIN . Facility:[facility]1 Start: 09-09-2022 End: 09-09-[address] PREM GOEL Facility:[facility]1 Start: 09-04-2022 End: 09-05-[address] PREM GOEL Facility:[facility]1 Start: 08-19-2022 End: 08-19-[address] BILL RAMOS Facility:H1 Start: 07-22-2022 End: 07-23-[address] PREM GOEL Facility:H1 Start: 05-08-2022 End: 05-09-2022 ambulatory AIXA GARCIA . Facility:H1 Start: 05-06-2022 Annual wellness visit Prem arevalo Other [facility] Other Start: 04-29-2022 End: 04-29-2022 ambulatory DO Prem Goel Work Phone: [facility] Work Phone: Start: 04-29-2022 End: 04-29-2022 Patient encounter procedure DO Prem Goel Work Phone: [facility] [place] Start: 03-06-2022 End: 03-07-[address] KHAO RAMOS . Facility:H1 Start: 02-27-2022 End: 02-27-2022 ambulatory Prem Goel Other [facility] Other Start: 02-27-2022 Telephone encounter Prem Goel [facility] Start: 02-18-2022 End: 02-18-[address] KHOA RAMOS . Facility:H1 Start: 01-28-2022 End: 01-28-2022 ambulatory Prem Goel Other [facility] Other Start: 01-28-2022 Office outpatient visit 15 minutes Prem Goel [facility] Start: 01-21-2022 End: 01-22-[address] KHOA RAMOS . Facility: Start: 12-02-2021 End: 12-02-2021 ambulatory Prem Kuns Other [facility] Other Start: 12-02-2021 Telephone encounter Prem Kuns [facility] [place] Start: 11-28-2021 End: 11-28-2021 ambulatory Prem Kuns Other [facility] Other Start: 11-28-2021 Telephone encounter Prem Kuns [facility] [place] Start: 10-02-2021 End: 10-02-2021 ambulatory Prem Kuns Other [facility] Other Start: 10-02-2021 Telephone encounter Prem Kuns [facility] [place] Start: 09-10-2021 End: 09-10-2021 ambulatory Prem Kuns Other [facility] Other Start: 09-10-2021 Telephone encounter Prem Kuns [facility] [place] Start: 08-15-2021 End: 08-15-2021 ambulatory Prem Kuns Other [facility] Other Start: 08-15-2021 Office outpatient visit 25 minutes Prem Kuns [facility] [place] Start: 08-12-2021 End: 08-12-2021 ambulatory Prem Kuns Other [facility] Other Start: 08-12-2021 Telephone encounter Prem Kuns [facility] Start: 06-13-2021 End: 06-13-2021 ambulatory Prem Kuns Other [facility] Other Start: 06-13-2021 Telephone encounter [facility] Start: 04-30-2021 End: 04-30-2021 ambulatory Prem Kuns Other [facility] Other Start: 04-30-2021 Office outpatient visit 25 minutes Prem Goel [facility] Start: 02-28-2021 End: 02-28-2021 ambulatory Prem Raymon Other [facility] Other Start: 02-28-2021 Patient encounter procedure Prem Goel [facility] Start: 08-18-2019 Annual wellness visit Prem arevalo Other [facility] Other Procedures Date Procedure Procedure Detail Performing Clinician Start: 10-12-2023 Quick Strep (POC) DO Br ett Raymon Work Phone: Start: 10-12-2023 RSV (POC) DO Prem krishnamurthy Work Phone: Plan of Treatment Date Care Activity Detail Author Start: 04-04-2024 Bacteria identified in Urine by Culture Urine Culture [facility] Start: 04-04-2024 Urine culture [facility] Comprehensive metabo lic 2000 panel - Serum or Plasma [facility] Glucose measurement estimated from glycated hemoglobin [facility] Glucose measurement estimated from glycated hemoglobin [facility] Immunizations Immunization Date Immunization Notes Care Provider Fa cility 06-13-2021 COVID-19 Vaccine Pfizer - Documentation Purposes Only Prem Goel Other [facility] 07-19-2020 COVID-19 Vaccine Pfizer - Documentation Purposes Only Prem Goel Other [facility] 06-29-2020 COVID-19 Vaccine Pfizer - Documentation Purposes Only Prem Goel Other [facility] NEGATED: Highlighted row has not occurred!05-06-2022 influenza, seasonal, injectable Patient Objection Prem Goel Other [facility] NEGATED: Highlighted row has not occurred!05-06-2022 Prevnar 20 Patient Objection Prme Goel Other [facility] NEGATED: Highlighted row has not occurred!02-17-2019 influenza, seasonal, injectable Patient Objection Prem Goel Other [facility] NEGATED: Highlighted row has not occurred!04-07-2017 influenza, seasonal, injectable Patient Objection Prem Goel Other [facility] Payers Date Payer Category Payer Private Health Insurance 2023 Self-pay [id number] 1959 Private Health Insurance [id number] 1937 Unknown [id number] [id number] 1937 Unknown [id number] 2.16.840.1.298278.3.579.2.59 1937 Unknown [id number] 2.16.840.1.071846.3.579.2.593 1937 Unknown [id number] 2.16.840.1.162726.3.579.2.593 1937 Unknown [id number] 2.16.840.1.913589.3.579.2.593 1937 Unknown [id number] 2.16.840.1.695152.3.579.2.593 1937 Unknown [id number] 2.16.840.1.058450.3.579.2.593 1937 Unknown [id number] 2.16.840.1.371662.3.579.2.593 1937 Unknown [id number] 2.16.840.1.730508.3.579.2.593 1937 Unknown [id number] 2.16.840.1.676094.3.579.2.593 1937 Unknown [id number] 2.16.840.1.109553.3.579.2.593 1937 Unknown [id number] 2.16.840.1.919001.3.579.2.196 Medicare Medicare [id number] Unknown [facility] Health Claims [id number] Unknown [id number] 2.16.840.1.084700.3.579.2.531 Unknown [id number] 2.16.840.1.469906.3.579.2.531 Unknown [id number] 2.16.840.1.697524.3.579.2.531 Unknown [id number] 2.16.840.1.423838.3.579.2.531 Social History Date Type Detail Facility Unknown if ever smoked [facility] Other Sex Assigned At Sex Assigned At Bir th [facility] Other Start: 03-28-2020 End: 12-29-2023 Tobacco smoking status NHIS Never smoked tobacco (finding) [facility] Start: 1935 Sex Assigned At Female F [facility] Start: 09-06-2024 Sex Female (finding) [facility] Clinical Notes 12-21-2007 to 04-04-2024 Note Date & Type Note Facility 04-04-2024 Evaluation note Authored April 04, 2024 8:14am The above note written by JUVENAL Diamond acting as human recorder, note dictated by Dr. Prem Goel. [facility] Work Phone: [phone] Evaluation note* Encounter Date Diagnosis Assessment Notes [...] exercise regimen; we will continue to monitor. [facility] Other 08-25-2023 Evaluation note* Encounter Date Diagnosis Assessment Notes Treatment Notes Treatment Clinical Notes Jan, Hyperlipidemia (ICD-10 - E78.5) [facility] Other 06-07-2023 Evaluation note* Encounter Date Diagnosis Assessment Notes Treatment Notes Treatment Clinical Notes Nov, Bronchopneumonia (ICD-10 - J18.0) [facility] ER records reviewed from both 11/06 [...] (ICD-10 - R59.0) Noted on imaging from [facility]. I do believe this is likely due to her being ill. She has never smoked. Discussed these findings with the and the patient if symptoms persist we may have pulmonary evaluation but at this time patient appears to be improving [facility] Other 04-27-2023 NoteCONSULTATION CONSULTATION DATE: 10/02/2022 TO: [...] our patients to inform us about any [id number] medications or herbal remedies/nutritional supplements/alternative remedies. 2. [...] treatment options with their primary care provider.[id number] Note CONSULTATION CONSULTATION DATE: 09/04/2022 TO: Dr. [...] mg pills, 1-2 at h.s. as tolerated.[facility] [id number] NoteCONSULTATION CONSULTATION DATE: 07/22/2022 CHIEF COMPLAINT: Right [...] her understand and would like to proceed,.[facility] 05-08-2022 NoteCONSULTATION CONSULTATION DATE: 05/08/2022 HISTORY [...] in three months' time unless otherwise indicated.[id number] NoteCONSULTATION CONSULTATION DATE: 03/06/2022 This is a [...] of care and all questions were answered.[id number] Evaluation note* Encounter Date Diagnosis Assessment Notes Treatment Notes Treatment Clinical Notes Feb, Hyperlipidemia (ICD-10 - E78.5) [facility] Other 08-23-2022 Evaluation note* Encounter Date Diagnosis [...] E78.5) Jan, Hyperglycemia (ICD-1 0 - R73.9) [facility] Other 08-16-2022 NoteCONSULTATION CONSULTATION DATE: 01/21/2022 CHIEF [...] and her understand. CC: Dr. Raphael Escamilla D.O.[facility]05-20-2022 NotePROCEDURE: Capzles Signa HDXT 1.5 Sagittal T1, T2, STIR [...] and signed by Ralph Figueroa on 10/25/2021 [facility] Evaluation note* Encounter Date Diagnosis Assessment [...] we will attempt to order an MRI. [facility] Other 01-06-2022 Evaluation note* Encounter Date Diagnosis Assessment Notes Treatment Notes Treatment Clinical Notes Jun, Hyperlipidemia (ICD-10 - E78.5) [facility] Other 11-23-2021 Evaluation note* Encounter Date Diagnosis [...] work-up i.e. CAT scan of her abdomen. [facility] Other 09-23-2021 Evaluation note* Encounter Date Diagnosis [...] monitor, a blood work order was provided. [facility] Other 07-15-2008 History general Narrative - Reported* Type Description Date Medical History Colonoscopy 12-21-07 Medical History Stress Test 01-18-[address] Scan Abdomen and Pelvis 06-07 Medical History Mammogram 2-11 Medical History Pap 1-10 Medical History 02/2013 [facility] Medical History 10/13/13-mammogram at [facility] Medical History 12/2015 mammogram Medical History 12/2016 Mammogram Medical History 07/2019 Mammogram Medical History Cardiolite 04/09/20 Surgical History wisdom teeth Hospitalization History child [facility] Other 07-15-2008 History general Narrative - Reported* Type Description Date Medical History Colonoscopy 12-21-07 Medical History Stress Test 01-18-[address] Scan Abdomen and Pelvis 06-07 Medical History Mammogram 2-11 Medical History Pap 1-10 Medical History 02/2013 [facility] Medical History 10/13/13-mammogram at [facility] Medical History 12/2015 mammogram Medical History 12/2016 Mammogram Medical History 07/2019 Mammogram Medical History Cardiolite 04/09/20 Medical History hearing aids Surgical History wisdom teeth Hospitalization History child [facility] Other Evalurxbpo noteNo InformationNortUpper [facility] Other evaluation noteNo assessment information available [facility] Work Phone: Evaluation note* Diagnosis Onset Date Resolution Status Degenerative disc disease, lumbar acute Encounter for subsequent alphonse ua wellness visit (AWV) in Medicare patient acute Fall acute Hyperlipidemia acute Lower extremity edema acute Prediabetes acute Screening mammogram for breast cancer acute Urinary incontinence acute [facility] Work Phone: Evaluation note* Author Beena Packer [facility] Authored December 29, 2023 10:0 4am The above note written by JUVENAL Diamond acting as human recorder, note dictated by Dr.Brett Goel. [facility] Work Phone: Evaluation note* Author Beena Chaoolson [facility] Authored April 04, 2024 8 :14am The above note written by JUVENAL Diamond acting as human recorder, note dictated by Dr. Prem Goel. [facility] Work Phone: Summary Purpose Family History No [...] section and content) DATE CREATED AUTHOR 04/11/2020 [facility] DATE CREATED AUTHOR AUTHOR'S ORGANIZ ATION 10/27/2021 [facility] DATE CREATED AUTHOR AUTHOR'S ORGANIZ ATION 10/17/2022 [facility] DATE CREATED AUTHOR AUTHOR'S ORGANIZ ATION 04/10/2024 [facility] DATE CREATED AUTHOR AUTHOR'S ORGANIZ ATION 02/04/2025 [facility] REASON FOR VISIT (unrecogniz ed section and [...] BE BASED ON THE PRIMARY CLINICAL RECORDS. [facility] [employer] provides no warranty or guarantee of the accuracy or completeness of information in this document.
== END 2025-02-08 09:16 | disposition home or self-care (01) ==
LOC: PM 09:18
PROVIDERS: PCP Family Medicine; Visit Provider Nurse Practitioner
DX: M46.1 Sacroiliitis, not elsewhere classified (principal); M48.062 Spinal stenosis, lumbar region with neurogenic claudication; M54.16 Radiculopathy, lumbar region
CPT/HCPCS: G0463

== ENCOUNTER 2025-02-20 10:26 | Day surgery (SDC) | payer MEDICARE, SELFPAY ==
[2025-02-20 11:07] VITALS: BP 154/73; PULSE 68; TEMP 36.8; O2SAT 96
[2025-02-20 11:32] VITALS: BP 210/100; PULSE 74; O2SAT 96
[2025-02-20 11:33] VITALS: BP 205/93; PULSE 72; O2SAT 95
[2025-02-20] MEDS: METHYLPREDNISOLONE ACETATE 40 MG/ML VIAL INJ (11:35)
[2025-02-20] MEDS: LIDOCAINE HCL 2% 400 MG/20 ML MDV INJ (11:35)
[2025-02-20] MEDS: IOHEXOL 240 MG/ML - 10 ML VIAL 12 MG INJ (11:35)
[2025-02-20] MEDS: BUPIVACAINE HCL 0.25% PF 25 MG/10 ML VIAL 2 ML INJ (11:35)
--- NOTE | 2025-02-20 11:36 | W.PM.PROCNOT ---
Date of procedure: 02/20/25 Pre-op diagnosis: Pain due to right sacroiliitis Post-op diagnosis: same as pre-op Procedure: Procedure: Right sacroiliac joint injection Medications: Bupivacaine 0.25% 3cc, depomedrol 40mg After informed consent was obtained, the patient was brought to the medical procedure unit and placed in the prone position, when a timeout was completed verifying correct patient, procedure, site, positioning, implant, and/or special equipment.? The skin overlying the area was prepped and draped in standard sterile fashion using alcohol.? A 25-gauge needle was inserted towards the right sacroiliac joint under direct fluoroscopic imaging.? Needle tip was advanced until the joint was encountered.? We instilled a total of 2 mL of solution.? Postoperatively needles were removed.? The patient tolerated the procedure well without complication.? The patient reported reduction in pain symptoms postoperatively. Anesthesia: Local Surgeon: Isidro Resendiz Pathology: none sent Condition: stable Disposition: no change
== END 2025-02-20 11:41 | disposition home or self-care (01) ==
PROVIDERS: PCP Family Medicine; Visit Provider Anesthesiology
DX: M46.1 Sacroiliitis, not elsewhere classified (principal)
CPT/HCPCS: 27096; J0665; J1010; Q9966

== ENCOUNTER 2025-03-02 08:52 | Outpatient (OUT) | payer MEDICARE, SELFPAY ==
--- OUTSIDE RECORDS SUMMARY | 2025-03-02 08:55 | XMS_ITS | Clinical Summary ---
Author Organization [facility] Address [address] [place] [address] Phone Care Team Providers Care Forest Firefighter Name Role Phone Ignacio Ennis DO Primary Care Provider [phone] Social History Tobacco Use Types Packs/Day Years [...] - 1-dose 75+ series) 2012 COVID-19 Vaccine (1 - 2023-2 5 season) 2025 Influenza Vaccine (#1) 2025 HIB Vaccines Aged [...] topic Insurance [employer] Care Teams Forest Firefighter Relationship Specialty Start Date End Date Ignacio Ennis DO PCP - General 04/09/20
--- OUTSIDE RECORDS SUMMARY | 2025-03-02 08:55 | XMS_ITS | Clinical Summary ---
Author Organization [facility] Healthcare Address [address] [place] [address] Care Team Providers Care Gis Engineer Name Role Phone Unavailable Primary Care Provider [...] Plan of Treatment Not on file Insurance [facility] MEDICARE ADVANTAGE
--- OUTSIDE RECORDS SUMMARY | 2025-03-02 08:55 | XMS_ITS | Encounter Summary ---
Author Organization [facility] Address [address] [place] [address] Phone Care Team Providers Care Wallpaper Scraper Name Role Phone Ignacio Ennis DO Primary Care Provider [phone] Encounter Details Date Type Department Care Team (Late st Contact Info) Description 10/06/2023 Scanned Document [facility] [address] [place] [id number] Scanning, Generic Provider Social History Tobacco Use Types Packs/Day Years Used Date Smoking Tobacco: Never Assessed Comments Unknown Sex and Gender Information Value Date Recorded Sex Assigned at Not on file Legal Sex Female 12:01 PM EST Gender Identity Not on file Sexual Orientation Not on file documented as of this encounter Plan of Treatment Not on file documented as of this encounter Procedures Procedure Name Priority Date/Time Associated Diagnosis Comments ECHOCARDIOGRAM 10/06/2023 documented in this encounter Results * Echocardiogram (10/06/2023) Narrative 10/06/2023 Ordered by an unspecified provider. us Generic Provider Scanning CV ECHO PROCEDURES Fin al Result documented in this encounter Visit Diagnoses Not on filedocumented in this encounter Care Teams Wallpaper Scraper Relationship Specialty Start Date End Date Ignacio Ennis DO PCP - General 04/09/20 documented as of this encounter
--- OUTSIDE RECORDS SUMMARY | 2025-03-02 08:58 | XMS_ITS | CCD ---
Author Organization [facility] Care Team Providers Care Licensing Court Magistrate Name Role Phone Prem Goel Unavailable DO Prem Goel Primary Care Provider [phone] DO Prem Goel Attending Provider [phone] LAKSHMIPATHY ., NARENDBASSAMATH Admitting Eda vailable RAYMON, [...] ., NARENDBASSAMATH Consulting Eda vailable LAKSHMIPATHY ., ERSIATH Admitting Eda vailable RAYMON, DR AMARO Primary [...] Provider Kuns, DO Prem Primary Care Provider [phone] Kuns, DO Prem Attending Provider Kuns, DO Prem Primary Care Provider Kuns, DO Prem Attending Provider Kuns, DO Prem Primary Care Provider Kuns, DO Prem Attending Provider [phone] Kuns, Prem Attending Unavailable Kuns, Prem Primary Care Unavailable Kuns, Prem Admitting Unavailable Kuns, Prem Primary Care Unavailable Kuns, Prem Admitting Unavailable Kuns, Prem Attending Unavailable Kuns, Prem Primary Care Unavailable Kuns, Prem Admitting Unavailable Kuns, Prem Attending Unavailable Kuns, Prem Attending Unavailable Kuns, Prem Primary Care Unavailable Kuns, Prem Admitting Unavailable Martín DRAPER, Isidro Aburto Attending Unavailable Martín DRAPER, Isidro Aburto Attending Unavailable [...] as needed Orally every 8 hrs Active [id number] 200 actuat albuterol 0.09 mg/actuat metered dose [...] 2020 12:00am January 06, 2024 8:12am Vit No.[id number] (Classic ) 28 mg iron- 800 mcg tablet (8 sources) Start: 09-24-2023 End: 09-24-2023 Vit No.183-Qspe-Bvpgc (Classic ) 28 mg iron- 800 mcg [...] Cx Nom (U) ORGANISM: Escherichia coli (O:ESCCOL) [place] Count >100,000 Aerobic BLAYNE Charge (NMIC56) ---- [...] RESISTANT TO ALL B-LACTAM DRUGS. PERFORMED BY: [address] [place] [address] PATHOLOGIST CORK FLOOR INSTALLER BEV TALBERT M.D. Normal [facility] Comment on above: Performed By: #### C UU #### [place] [address] [place] Alanine aminotransferase [En zymatic activity/volume] in Serum or PlasmaOrdered By: Prem Goel on 03-30-2024 ALT [Catalytic activity/Vol] 14 U/L Normal 7-52 [facility] Comment on above: Performed By: #### L IPID, TSH3, CMP, CBC #### [place] [address] [place] Albumin [Mass/volume] in Ser um or Plasma by Bromocresol green (BCG) dye binding methoOrdered By: Prem Goel on 03-30-2024 Albumin BCG dye [Mass/Vol] 3.8 g/dL 3.5-5.7 [facility] Alkaline phosphatase [Enzyma tic activity/volume] in Serum or PlasmaOrdered By: Prem Goel on 03-30-2024 ALP [Catalytic activity/Vol] 87 U/L Normal 34-104 [facility] Comment on above: Performed By: #### L IPID, TSH3, CMP, CBC #### [place] [address] [place] Aspartate aminotransferase [ Enzymatic activity/volume] in Serum or PlasmaOrdered By: Prem Goel on 03-30-2024 AST [Catalytic activity/Vol] 15 U/L Normal 13-39 [facility] Comment on above: Performed By: #### L IPID, TSH3, CMP, CBC #### [place] [address] [place] Automated basophil %Ordered By: Prem Goel on 03-30-2024 Basophils/100 WBC (Bld) 0.8 % Normal . [facility] Comment on above: Performed By: #### L IPID, TSH3, CMP, CBC #### [facility] [address] [place] [address] [place] Automated basophil countOrde red By: Prem Goel on 03-30-2024 Basophils (Bld) [#/Vol] 0.0 10*3/uL Normal 0.0-0.2 [facility] Comment on above: Result Comment: PERF ORMED BY: [place] [address] PATHOLOGIST CORK FLOOR INSTALLER BEV TALBERT M.D. Performed By: #### L IPID, TSH3, CMP, CBC #### [facility] [address] [place] [address] Automated blood monocyte cou ntOrdered By: Premsaloni Goel on 03-30-2024 Monocytes (Bld) [#/Vol] 0.5 10*3/uL Normal 0.0-0.8 [facility] Comment on above: Performed By: #### L IPID, TSH3, CMP, CBC #### [address] Automated eosinophil %Ordere d By: Premsaloni Rodriguezs on 03-30-2024 Eosinophils/100 WBC (Bld) 2.5 % Normal . [facility] Comment on above: Performed By: #### L IPID, TSH3, CMP, CBC #### [facility] [address] [place] [address] Automated eosinophil countOr dered By: Prem Goel on 03-30-2024 Eosinophils (Bld) [#/Vol] 0.1 10*3/uL Normal 0.0-0.45 [facility] Comment on above: Performed By: #### L IPID, TSH3, CMP, CBC #### [facility] [address] [place] [address] Automated monocyte %Ordered By: Premsaloni Goel on 03-30-2024 Monocytes/100 WBC (Bld) 9.1 % Normal . [facility] Comment on above: Performed By: #### L IPID, TSH3, CMP, CBC #### [facility] [address] [place] [address] Automated neutrophil %Ordere d By: Prem Raulitos on 03-30-2024 Neutrophils/100 WBC (Bld) 52.9 % Normal . [facility] Comment on above: Performed By: #### L IPID, TSH3, CMP, CBC #### [facility] [address] [place] [address] [place] Bilirubin.total [Mass/volume ] in Serum or PlasmaOrdered By: Prem Goel on 03-30-2024 Bilirubin [Mass/Vol] 0.4 mg/dL Normal 0.3-1.0 [facility] Comment on above: Performed By: #### L IPID, TSH3, CMP, CBC #### [facility] [address] [place] [address] [place] Calcium [Mass/volume] in Ser um or PlasmaOrdered By: Prem Goel on 03-30-2024 Calcium [Mass/Vol] 9.2 mg/dL Normal 8.6-10.3 [facility] Comment on above: Performed By: #### L IPID, TSH3, CMP, CBC #### [facility] [address] [place] [address] [place] Carbon dioxide, total [Moles /volume] in Serum or PlasmaOrdered By: Prem Goel on 03-30-2024 CO2 [Moles/Vol] 28.9 mmol/L Normal 21.0-31.0 [facility] Comment on above: Performed By: #### L IPID, TSH3, CMP, CBC #### [facility] [address] [place] [address] [place] Chloride [Moles/volume] in S dede or PlasmaOrdered By: Prem Goel on 03-30-2024 Chloride [Moles/Vol] 106 mmol/L Normal 98-107 [facility] Comment on above: Performed By: #### L IPID, TSH3, CMP, CBC #### [facility] [address] [place] [address] [place] Cholesterol [Mass/volume] in Serum or PlasmaOrdered By: Prem Goel on 03-30-2024 Cholesterol [Mass/Vol] 319 mg/dL High 140-200 [facility] Comment on above: Chol less than 200 m g/dl low riskChol 201-239 mg/dl borderline riskChol 240 mg/dl and greater high risk Result Comment: Chol less than 200 mg/dl low risk Chol 201-239 mg/dl borderline risk Chol 240 mg/dl and greater high risk Performed By: #### L IPID, TSH3, CMP, CBC #### [address] Cholesterol in LDL Calc [Mas s/Vol]Ordered By: Prem Goel on 03-30-2024 Cholesterol in LDL [Mass/Vol] 230 mg/dL High 0-100 [facility] Comment on above: LDL ATP III CLASSIFI CATIONLDL less than 100 mg/dL OptimalLDL 100-129 mg/dL Near or above optimalLDL 130-159 mg/dL Borderline highLDL 160-189 mg/dL HighLDL greater than 189 mg/dL Very high Cholesterol in VLDL Calc [Ma ss/Vol]Ordered By: Prem Goel on 03-30-2024 Cholesterol in VLDL [Mass/Vol] 18 mg/dL [facility] Complete Blood Count Auto Di ffon 03-30-2024 Mean Corpuscular HGB Conc 33.4 g/dL Normal 32.0-35.0 [facility] Comment on above: Performed By: #### L IPID, TSH3, CMP, CBC #### [address] NRBC% 0.1 /100{WBC} Normal 0-0.5 [facility] Comment on above: Performed By: #### L IPID, TSH3, CMP, CBC #### [address] Comprehensive Metabolic Pane savannah 03-30-2024 Albumin [Mass/Vol] 3.8 g/dL Normal 3.5-5.7 [facility] Comment on above: Performed By: #### L IPID, TSH3, CMP, CBC #### [address] GFR/1.73 sq M.predicted MDRD (S/P/Bld) [Vol rate/Area] mL/min/{1.73_m2} Normal [facility] Comment on above: Performed By: #### L IPID, TSH3, CMP, CBC #### [place] [address] [place] Creatinine [Mass/volume] in Serum or PlasmaOrdered By: Prem Goel on 03-30-2024 Creatinine [Mass/Vol] 0.76 mg/dL Normal 0.60-1.20 [facility] Comment on above: Performed By: #### L IPID, TSH3, CMP, CBC #### [facility] [address] Erythrocyte distribution wid th [Ratio] by Automated countOrdered By: Prem Goel on 03-30-2024 Erythrocyte distribution width (RBC) [Ratio] 12.7 % Normal 11.9-15.3 [facility] Comment on above: Performed By: #### L IPID, TSH3, CMP, CBC #### [facility] [address] Erythrocytes [#/volume] in B lood by Automated countOrdered By: Prem Goel on 03-30-2024 RBC (Bld) [#/Vol] 4.43 10*6/uL Normal 3.60-5.00 [facility] Comment on above: Performed By: #### L IPID, TSH3, CMP, CBC #### [facility] [address] Glucose [Mass/volume] in Ser um or PlasmaOrdered By: Prem Goel on 03-30-2024 Glucose [Mass/Vol] 89 mg/dL Normal 70-100 [facility] Comment on above: ADA recommended refe rence rangeRandom Glucose Reference Range is dependent on time and content of last meal. Glucose of more than 200 mg/dL in a nonstressed, ambulatory subject supports the diagnosis of Diabetes Mellitus. Result Comment: [place] om Glucose Reference Range is dependent on time and content of last meal. Glucose of more than 200 mg/dL in a nonstressed, ambulatory subject supports the diagnosis of Diabetes Mellitus. ADA recommended reference range Performed By: #### L IPID, TSH3, CMP, CBC #### [facility] [address] Hematocrit [Volume Fraction] of Blood by Automated countOrdered By: Prem Goel on 03-30-2024 Hematocrit (Bld) [Volume fraction] 41.5 % Normal 34.0-46.4 [facility] Comment on above: Performed By: #### L IPID, TSH3, CMP, CBC #### [facility] [address] Hemoglobin [Mass/volume] in BloodOrdered By: Prem Goel on 03-30-2024 Hemoglobin (Bld) [Mass/Vol] 13.9 g/dL Normal 11.8-15.4 [facility] Comment on above: Performed By: #### L IPID, TSH3, CMP, CBC #### [facility] [address] Leukocytes [#/volume] correc guillermina for nucleated erythrocytes in Blood by Automated counOrdered By: Prem Goel on 03-30-2024 WBC corrected for nucl RBC Auto (Bld) [#/Vol] 5.4 10*3/uL 3.8-11.6 [facility] Leukocytes [#/volume] in Blo od by Automated countOrdered By: Prem Goel on 03-30-2024 WBC (Bld) [#/Vol] 5.4 10*3/uL Normal 3.8-11.6 [facility] Comment on above: Performed By: #### L IPID, TSH3, CMP, CBC #### [address] Lipid Panelon 03-30-2024 LDL Cholesterol,Calculated 230 mg/dL High 0-100 [facility] Comment on above: Result Comment: LDL ATP III CLASSIFICATION LDL less than 100 mg/dL Optimal LDL 100-129 mg/dL Near or above optimal LDL 130-159 mg/dL Borderline high LDL 160-189 mg/dL High LDL greater than 189 mg/dL Very high Performed By: #### L IPID, TSH3, CMP, CBC #### [address] Triglyceride w/Reflex 94 mg/dL Normal 0-149 [facility] Comment on above: Result Comment: TRIG ATP III CLASSIFICATION TRIG less than 150 mg/dL Normal TRIG 150-199 mg/dL Borderline high TRIG 200-500 mg/dL High TRIG greater than 500 mg/dL Very high Standard traceable to the Center for Disease Conrtrol and Prevention (CDC) test method. Performed By: #### L IPID, TSH3, CMP, CBC #### [address] VLDL CHOLESTEROL 18 mg/dL Normal [facility] Comment on above: Performed By: #### L IPID, TSH3, CMP, CBC #### [address] Lymphocytes [#/volume] in Bl ood by Automated countOrdered By: Prem Goel on 03-30-2024 Lymphocytes (Bld) [#/Vol] 1.9 10*3/uL Normal 1.00-4.8 [facility] Comment on above: Performed By: #### L IPID, TSH3, CMP, CBC #### [address] Lymphocytes/100 leukocytes i n Blood by Automated countOrdered By: Prem Goel on 03-30-2024 Lymphocytes/100 WBC (Bld) 34.7 % Normal . [facility] Comment on above: Performed By: #### L IPID, TSH3, CMP, CBC #### [address] MCH [Entitic mass] by Automa guillermina countOrdered By: Prem oGel on 03-30-2024 MCH (RBC) [Entitic mass] 31.3 pg Normal 24.7-34.3 [facility] Comment on above: Performed By: #### L IPID, TSH3, CMP, CBC #### [address] MCHC Auto (RBC) [Mass/Vol]Or dered By: Prem Goel on 03-30-2024 MCHC (RBC) [Mass/Vol] 33.4 g/dL 32.0-35.0 [facility] MCV [Entitic volume] by Auto mated countOrdered By: Prem Goel on 03-30-2024 MCV (RBC) [Entitic vol] 93.7 fL Normal 80-100 [facility] Comment on above: Performed By: #### L IPID, TSH3, CMP, CBC #### [facility] [address] [place] [address] [place] Neutrophils [#/volume] in Bl ood by Automated countOrdered By: Prem Goel on 03-30-2024 Neutrophils (Bld) [#/Vol] 2.9 10*3/uL Normal 1.8-7.7 [facility] Comment on above: Performed By: #### L IPID, TSH3, CMP, CBC #### [facility] [address] [place] [address] No Panel InformationOrdered By: Prem Goel on 03-30-2024 Estimated GFR (CKD-EPI) > 60.0 mL/Min [facility] Creatinine Clearance (Chem N/A [facility] Nucleated erythrocytes [Pres ence] in Blood by Automated countOrdered By: Prem Goel on 03-30-2024 Nucleated RBC Auto Ql (Bld) 0.1 /100{WBC} 0-0.5 [facility] Platelet mean volume [Entiti c volume] in Blood by Automated countOrdered By: Prem Gole on 03-30-2024 Platelet mean volume (Bld) [Entitic vol] 10.4 fL Normal 6.3-10.7 [facility] Comment on above: Performed By: #### L IPID, TSH3, CMP, CBC #### [facility] [address] [place] [address] [place] Platelets [#/volume] in Bloo d by Automated countOrdered By: Prem Goel on 03-30-2024 Platelets (Bld) [#/Vol] 199 10*3/uL Normal 150-450 [facility] Comment on above: Performed By: #### L IPID, TSH3, CMP, CBC #### [facility] [address] [place] [address] [place] Potassium [Moles/volume] in Serum or PlasmaOrdered By: Prem Goel on 03-30-2024 Potassium [Moles/Vol] 4.1 mmol/L Normal 3.5-5.1 [facility] Comment on above: Performed By: #### L IPID, TSH3, CMP, CBC #### [facility] [address] [place] [address] Protein [Mass/volume] in Ser um or PlasmaOrdered By: Prem Goel on 03-30-2024 Protein [Mass/Vol] 6.1 g/dL Low 6.4-8.9 [facility] Comment on above: Performed By: #### L IPID, TSH3, CMP, CBC #### [facility] [address] Serum globulin measurement b y calculation (mass/volume)Ordered By: Prem Goel on 03-30-2024 Globulin (S) [Mass/Vol] 2.3 g/dL Normal [facility] Comment on above: Performed By: #### L IPID, TSH3, CMP, CBC #### [facility] [address] [place] [address] Serum or plasma albumin/glob ulin mass ratioOrdered By: Prem Goel on 03-30-2024 Albumin/Globulin [Mass ratio] 1.7 {ratio} Normal [facility] Comment on above: Performed By: #### L IPID, TSH3, CMP, CBC #### [address] Serum or plasma anion gap de terminationOrdered By: Prem Goel on 03-30-2024 Anion gap [Moles/Vol] 11.2 mmol/L Normal 6.0-15.0 [facility] Comment on above: Performed By: #### L IPID, TSH3, CMP, CBC #### [facility] [address] [place] [address] Serum or plasma high density lipoprotein (HDL) cholesterol measurementOrdered By: Prem Goel on 03-30-2024 Cholesterol in HDL [Mass/Vol] 70 mg/dL Normal [facility] Comment on above: HDL CHOL ATP-III CLA SSIFICATION Cardiovascular RiskHDL > or equal to 60 mg/dL LOWHDL < 40 mg/dL HIGH Result Comment: HDL CHOL ATP-III CLASSIFICATION Cardiovascular Risk HDL > or equal to 60 mg/dL LOW HDL < 40 mg/dL HIGH Performed By: #### L IPID, TSH3, CMP, CBC #### [facility] [address] Serum or plasma total choles terol/high density lipoprotein (HDL) cholesterol mass ratOrdered By: Prem Goel on 03-30-2024 Cholesterol.total/Araceli sterol in HDL [Mass ratio] 4.6 {ratio} Normal <5.0 [facility] Comment on above: Performed By: #### L IPID, TSH3, CMP, CBC #### [facility] [address] Sodium [Moles/volume] in Ser um or PlasmaOrdered By: Prem Goel on 03-30-2024 Sodium [Moles/Vol] 142 mmol/L Normal 136-145 [facility] Comment on above: Performed By: #### L IPID, TSH3, CMP, CBC #### [address] Thyrotropin [Units/volume] i n Serum or PlasmaOrdered By: Prem Goel on 03-30-2024 TSH Qn 2.68 m[IU]/L Normal 0.45-5.33 [facility] Comment on above: Result Comment: PERF ORMED BY: [place] [address] PATHOLOGIST CORK FLOOR INSTALLER BEV TALBERT M.D. Performed By: #### C MP, CBC, TSH3, LIPID #### [address] Triglyceride [Mass/volume] i n Serum or PlasmaOrdered By: Prem Goel on 03-30-2024 Triglyceride [Mass/Vol] 94 mg/dL 0-149 [facility] Comment on above: TRIG ATP III CLASSIF ICATIONTRIG less than 150 mg/dL NormalTRIG 150-199 mg/dL Borderline highTRIG 200-500 mg/dL High TRIG greater than 500 mg/dL Very highStandard traceable to the Center for Disease Conrtrol and Prevention (CDC) test method. Urea nitrogen [Mass/volume] in Serum or PlasmaOrdered By: Prem Goel on 03-30-2024 Urea nitrogen [Mass/Vol] 21 mg/dL Normal 7-25 [facility] Comment on above: Performed By: #### L IPID, TSH3, CMP, CBC #### [address] Influenza virus B Ag [Presen ce] in Upper respiratory specimen by Rapid immunoassayon 10-12-2023 FLUBV Ag IA.rapid Ql (Nph) Negative [facility] No Panel Informationon 10-11 Influenza Type A (Rapid) Negative [facility] POC SARS CoV-2 Antigen Negative [facility] No Panel InformationOrdered By: Prem Goel on 10-12-2023 Quick Strep (POC) [facility] RSV (POC) [facility] echo transthoracicon [facility] echo transthoracic [facility] [address] [place] [address] Echocardiogram Signed Patient: Mary Wilkerson MR#: [id number] 119 : 1935 Acct:[id number] Age/Sex: 87 / F ADM Date: 10/06/23 Loc: Room: Type: [facility] Attending Dr: Prem Goel DO Ordering Provider: Prem Goel DO Date of Service: 10/06/23 [facility] echo transthoracic: R60.0 - Localized edema Copies to: DO Bruce Solares MD, [facility] BSA: 1.7 m2 BP: 147/85 mmHg [...] 10/06/23 0852 Signed By: Bruce Caballero MD, [facility] 10/06/23 1757 Normal [facility] A1C with Estimated Average G bassam 09-18-2023 Glucose [Mass/Vol] 117 mg/dL Normal [facility] Comment on above: Order Comment: Reaso n for Exam Hyperglycemia Result Comment: PERF ORMED BY: [place] [address] PATHOLOGIST C[employer] FLOOR INSTALLER BEV TALBERT M.D. Performed By: #### A 1C [facility] eA #### [facility] [address] [place] [address] [place] Alanine aminotransferase [En zymatic activity/volume] in Serum or PlasmaOrdered By: Prem Goel on 09-18-2023 ALT [Catalytic activity/Vol] 15 U/L Normal 7-52 [facility] Comment on above: Order Comment: Reaso n for Exam Hyperlipidemia Performed By: #### C MP, CBC, TSH3, LIPID #### [facility] [address] [place] [address] [place] Albumin [Mass/volume] in Ser um or Plasma by Bromocresol green (BCG) dye binding methoOrdered By: Prem Goel on 09-18-2023 Albumin BCG dye [Mass/Vol] 4.0 g/dL 3.5-5.7 [facility] Alkaline phosphatase [Enzyma tic activity/volume] in Serum or PlasmaOrdered By: Prem Goel on 09-18-2023 ALP [Catalytic activity/Vol] 87 U/L Normal 34-104 [facility] Comment on above: Order Comment: Reaso n for Exam Hyperlipidemia Performed By: #### C MP, CBC, TSH3, LIPID #### [facility] [address] Aspartate aminotransferase [ Enzymatic activity/volume] in Serum or PlasmaOrdered By: Prem Goel on 09-18-2023 AST [Catalytic activity/Vol] 16 U/L Normal 13-39 [facility] Comment on above: Order Comment: Reaso n for Exam Hyperlipidemia Performed By: #### C MP, CBC, TSH3, LIPID #### [address] Automated basophil %Ordered By: Prem Goel on 09-18-2023 Basophils/100 WBC (Bld) 0.5 % Normal . [facility] Comment on above: Performed By: #### C MP, CBC, TSH3, LIPID #### [address] Automated basophil countOrde red By: Prem Goel on 09-18-2023 Basophils (Bld) [#/Vol] 0.0 10*3/uL Normal 0.0-0.2 [facility] Comment on above: Result Comment: PERF ORMED BY: [place] [address] PATHOLOGIST C[employer] FLOOR INSTALLER BEV TALBERT M.D. Performed By: #### C MP, CBC, TSH3, LIPID #### [address] Automated blood monocyte cou ntOrdered By: Prem Goel on 09-18-2023 Monocytes (Bld) [#/Vol] 0.4 10*3/uL Normal 0.0-0.8 [facility] Comment on above: Performed By: #### C MP, CBC, TSH3, LIPID #### [address] Automated eosinophil %Ordere d By: Prem Goel on 09-18-2023 Eosinophils/100 WBC (Bld) 2.2 % Normal . [facility] Comment on above: Performed By: #### C MP, CBC, TSH3, LIPID #### [address] Automated eosinophil countOr dered By: Prem Goel on 09-18-2023 Eosinophils (Bld) [#/Vol] 0.1 10*3/uL Normal 0.0-0.45 [facility] Comment on above: Performed By: #### C MP, CBC, TSH3, LIPID #### [facility] [address] Automated monocyte %Ordered By: Prem Goel on 09-18-2023 Monocytes/100 WBC (Bld) 8.0 % Normal . [facility] Comment on above: Performed By: #### C MP, CBC, TSH3, LIPID #### [facility] [address] Automated neutrophil %Ordere d By: Prem Goel on 09-18-2023 Neutrophils/100 WBC (Bld) 36.1 % Normal . [facility] Comment on above: Performed By: #### C MP, CBC, TSH3, LIPID #### [facility] [address] Bilirubin.total [Mass/volume ] in Serum or PlasmaOrdered By: Prem Goel on 09-18-2023 Bilirubin [Mass/Vol] 0.6 mg/dL Normal 0.3-1.0 [facility] Comment on above: Order Comment: Reaso n for Exam Hyperlipidemia Performed By: #### C MP, CBC, TSH3, LIPID #### [address] Calcium [Mass/volume] in Ser um or PlasmaOrdered By: Prem Goel on 09-18-2023 Calcium [Mass/Vol] 9.5 mg/dL Normal 8.6-10.3 [facility] Comment on above: Order Comment: Reaso n for Exam Hyperlipidemia Performed By: #### C MP, CBC, TSH3, LIPID #### [address] Carbon dioxide, total [Moles /volume] in Serum or PlasmaOrdered By: Prem Goel on 09-18-2023 CO2 [Moles/Vol] 28.9 mmol/L Normal 21.0-31.0 [facility] Comment on above: Order Comment: Reaso n for Exam Hyperlipidemia Performed By: #### C MP, CBC, TSH3, LIPID #### [facility] [address] [place] [id number] [place] Chloride [Moles/volume] in S dede or PlasmaOrdered By: Prem Goel on 09-18-2023 Chloride [Moles/Vol] 104 mmol/L Normal 98-107 [facility] Comment on above: Order Comment: Reaso n for Exam Hyperlipidemia Performed By: #### C MP, CBC, TSH3, LIPID #### [facility] [address] [place] [address] [place] Cholesterol [Mass/volume] in Serum or PlasmaOrdered By: Prem Goel on 09-18-2023 Cholesterol [Mass/Vol] 289 mg/dL High 140-200 [facility] Comment on above: Chol less than 200 m g/dl low riskChol 201-239 mg/dl borderline riskChol 240 mg/dl and greater high risk Order Comment: Reaso n for Exam Hyperlipidemia Result Comment: Chol less than 200 mg/dl low risk Chol 201-239 mg/dl borderline risk Chol 240 mg/dl and greater high risk Performed By: #### C MP, CBC, TSH3, LIPID #### [facility] [address] [place] [id number] [place] Cholesterol in LDL Calc [Mas s/Vol]Ordered By: Prem Goel on 09-18-2023 Cholesterol in LDL [Mass/Vol] 197 mg/dL 0-100 [facility] Comment on above: LDL ATP III CLASSIFI CATIONLDL less than 100 mg/dL OptimalLDL 100-129 mg/dL Near or above optimalLDL 130-159 mg/dL Borderline highLDL 160-189 mg/dL HighLDL greater than 189 mg/dL Very high Cholesterol in VLDL Calc [Ma ss/Vol]Ordered By: Prem Goel on 09-18-2023 Cholesterol in VLDL [Mass/Vol] 23 mg/dL [facility] Complete Blood Count Auto Di ffon 09-18-2023 Mean Corpuscular HGB Conc 31.9 g/dL Low 32.0-35.0 [facility] Comment on above: Performed By: #### C MP, CBC, TSH3, LIPID #### [facility] [address] NRBC% 0.2 /100{WBC} Normal 0-0.5 [facility] Comment on above: Performed By: #### C MP, CBC, TSH3, LIPID #### [facility] [address] Comprehensive Metabolic Pane [place] 09-18-2023 Albumin [Mass/Vol] 4.0 g/dL Normal 3.5-5.7 [facility] Comment on above: Order Comment: Reaso n for Exam Hyperlipidemia Performed By: #### C MP, CBC, TSH3, LIPID #### [address] GFR/1.73 sq M.predicted MDRD (S/P/Bld) [Vol rate/Area] mL/min/{1.73_m2} Normal [facility] Comment on above: Order Comment: Reaso n for Exam Hyperlipidemia Performed By: #### C MP, CBC, TSH3, LIPID #### [address] Creatinine [Mass/volume] in Serum or PlasmaOrdered By: Prem Goel on 09-18-2023 Creatinine [Mass/Vol] 0.79 mg/dL Normal 0.60-1.20 [facility] Comment on above: Order Comment: Reaso n for Exam Hyperlipidemia Performed By: #### C MP, CBC, TSH3, LIPID #### [facility] [address] [place] [address] Erythrocyte distribution wid th [Ratio] by Automated countOrdered By: Prem Goel on 09-18-2023 Erythrocyte distribution width (RBC) [Ratio] 13.9 % Normal 11.9-15.3 [facility] Comment on above: Performed By: #### C MP, CBC, TSH3, LIPID #### [facility] [address] [place] [address] Erythrocytes [#/volume] in B lood by Automated countOrdered By: Prem Goel on 09-18-2023 RBC (Bld) [#/Vol] 4.87 10*6/uL Normal 3.60-5.00 [facility] Comment on above: Performed By: #### C MP, CBC, TSH3, LIPID #### [facility] [address] Glucose [Mass/volume] in Ser um or PlasmaOrdered By: Prem Goel on 09-18-2023 Glucose [Mass/Vol] 90 mg/dL Normal 70-100 [facility] Comment on above: ADA recommended refe rence rangeRandom Glucose Reference Range is dependent on time and content of last meal. Glucose of more than 200 mg/dL in a nonstressed, ambulatory subject supports the diagnosis of Diabetes Mellitus. Order Comment: Reaso n for Exam Hyperlipidemia Result Comment: [place] Glucose Reference Range is dependent on time and content of last meal. Glucose of more than 200 mg/dL in a nonstressed, ambulatory subject supports the diagnosis of Diabetes Mellitus. ADA recommended reference range Performed By: #### C MP, CBC, TSH3, LIPID #### [facility] [address] Glucose mean value [Mass/vol ume] in Blood Estimated from glycated hemoglobinOrdered By: Prem Goel on 09-18-2023 Average glucose Estimated from glycated hemoglobin (Bld) [Mass/Vol] 117 mg/dL [facility] Hematocrit [Volume Fraction] of Blood by Automated countOrdered By: Prem Goel on 09-18-2023 Hematocrit (Bld) [Volume fraction] 44.9 % Normal 34.0-46.4 [facility] Comment on above: Performed By: #### C MP, CBC, TSH3, LIPID #### [facility] [address] Hemoglobin A1c percentageOrd ered By: Prem Goel on 09-18-2023 HbA1c (Bld) [Mass fraction] 5.7 % High 4.3-5.6 [facility] Comment on above: Increased risk for d iabetes: 5.7 - 6.4diabetes: >6.4glycemic control for adults with diabetes: <7.0 Order Comment: Reaso n for Exam Hyperglycemia Result Comment: Incr eased risk for diabetes: 5.7 - 6.4 diabetes: >6.4 glycemic control for adults with diabetes: <7.0 Performed By: #### A 1C WT eA #### [facility] [address] Hemoglobin [Mass/volume] in BloodOrdered By: Prem Goel on 09-18-2023 Hemoglobin (Bld) [Mass/Vol] 14.3 g/dL Normal 11.8-15.4 [facility] Comment on above: Performed By: #### C MP, CBC, TSH3, LIPID #### [facility] [address] Leukocytes [#/volume] correc guillermina for nucleated erythrocytes in Blood by Automated counOrdered By: Prem Goel on 09-18-2023 WBC corrected for nucl RBC Auto (Bld) [#/Vol] 5.4 10*3/uL 3.8-11.6 [facility] Leukocytes [#/volume] in Blo od by Automated countOrdered By: Prem Goel on 09-18-2023 WBC (Bld) [#/Vol] 5.4 10*3/uL Normal 3.8-11.6 [facility] Comment on above: Performed By: #### C MP, CBC, TSH3, LIPID #### [address] Lipid Panelon 09-18-2023 LDL Cholesterol,Calculated 197 mg/dL High 0-100 [facility] Comment on above: Order Comment: Reaso n for Exam Hyperlipidemia Result Comment: LDL ATP III CLASSIFICATION LDL less than 100 mg/dL Optimal LDL 100-129 mg/dL Near or above optimal LDL 130-159 mg/dL Borderline high LDL 160-189 mg/dL High LDL greater than 189 mg/dL Very high Performed By: #### C MP, CBC, TSH3, LIPID #### [facility] [address] Triglyceride w/Reflex 116 mg/dL Normal 0-149 [facility] Comment on above: Order Comment: Reaso n for Exam Hyperlipidemia Result Comment: TRIG ATP III CLASSIFICATION TRIG less than 150 mg/dL Normal TRIG 150-199 mg/dL Borderline high TRIG 200-500 mg/dL High TRIG greater than 500 mg/dL Very high Standard traceable to the Center for Disease Conrtrol and Prevention (CDC) test method. Performed By: #### C MP, CBC, TSH3, LIPID #### [facility] [address] [place] [address] VLDL CHOLESTEROL 23 mg/dL Normal [facility] Comment on above: Order Comment: Reaso n for Exam Hyperlipidemia Performed By: #### C MP, CBC, TSH3, LIPID #### [facility] [address] Lymphocytes [#/volume] in Bl ood by Automated countOrdered By: Prem Goel on 09-18-2023 Lymphocytes (Bld) [#/Vol] 2.9 10*3/uL Normal 1.00-4.8 [facility] Comment on above: Performed By: #### C MP, CBC, TSH3, LIPID #### [facility] [address] [place] [address] Lymphocytes/100 leukocytes i n Blood by Automated countOrdered By: Prem Goel on 09-18-2023 Lymphocytes/100 WBC (Bld) 53.2 % Normal . [facility] Comment on above: Performed By: #### C MP, CBC, TSH3, LIPID #### [facility] [address] [place] [address] MCH [Entitic mass] by Automa guillermina countOrdered By: Prem Goel on 09-18-2023 MCH (RBC) [Entitic mass] 29.4 pg Normal 24.7-34.3 [facility] Comment on above: Performed By: #### C MP, CBC, TSH3, LIPID #### [facility] [address] [place] [address] MCHC Auto (RBC) [Mass/Vol]Or dered By: Prem Goel on 09-18-2023 MCHC (RBC) [Mass/Vol] 31.9 g/dL 32.0-35.0 [facility] MCV [Entitic volume] by Auto mated countOrdered By: Prem Goel on 09-18-2023 MCV (RBC) [Entitic vol] 92.3 fL Normal 80-100 [facility] Comment on above: Performed By: #### C MP, CBC, TSH3, LIPID #### [facility] [address] [place] [address] Neutrophils [#/volume] in Bl ood by Automated countOrdered By: Prem Goel on 09-18-2023 Neutrophils (Bld) [#/Vol] 1.9 10*3/uL Normal 1.8-7.7 [facility] Comment on above: Performed By: #### C MP, CBC, TSH3, LIPID #### [facility] [address] [place] [address] No Panel InformationOrdered By: Prem Goel on 09-18-2023 Estimated GFR (CKD-EPI) > 60.0 mL/Min [facility] Creatinine Clearance (Chem N/A [facility] Nucleated erythrocytes [Pres ence] in Blood by Automated countOrdered By: Prem Goel on 09-18-2023 Nucleated RBC Auto Ql (Bld) 0.2 /100{WBC} 0-0.5 [facility] Platelet mean volume [Entiti c volume] in Blood by Automated countOrdered By: Prem Goel on 09-18-2023 Platelet mean volume (Bld) [Entitic vol] 10.4 fL Normal 6.3-10.7 [facility] Comment on above: Performed By: #### C MP, CBC, TSH3, LIPID #### [facility] [address] [place] [address] Platelets [#/volume] in Bloo d by Automated countOrdered By: Prem Goel on 09-18-2023 Platelets (Bld) [#/Vol] 230 10*3/uL Normal 150-450 [facility] Comment on above: Performed By: #### C MP, CBC, TSH3, LIPID #### [facility] [address] [place] [address] Potassium [Moles/volume] in Serum or PlasmaOrdered By: Prem Goel on 09-18-2023 Potassium [Moles/Vol] 4.2 mmol/L Normal 3.5-5.1 [facility] Comment on above: Order Comment: Reaso n for Exam Hyperlipidemia Performed By: #### C MP, CBC, TSH3, LIPID #### [facility] [address] Protein [Mass/volume] in Ser um or PlasmaOrdered By: Premsaloni Rodriguezs on 09-18-2023 Protein [Mass/Vol] 6.4 g/dL Normal 6.4-8.9 [facility] Comment on above: Order Comment: Reaso n for Exam Hyperlipidemia Performed By: #### C MP, CBC, TSH3, LIPID #### [facility] [address] [place] [address] Serum globulin measurement b y calculation (mass/volume)Ordered By: Prem Goel on 09-18-2023 Globulin (S) [Mass/Vol] 2.4 g/dL Normal [facility] Comment on above: Order Comment: Reaso n for Exam Hyperlipidemia Performed By: #### C MP, CBC, TSH3, LIPID #### [facility] [address] [place] [address] Serum or plasma albumin/glob ulin mass ratioOrdered By: Premsaloni Rodriguezs on 09-18-2023 Albumin/Globulin [Mass ratio] 1.7 {ratio} Normal [facility] Comment on above: Order Comment: Reaso n for Exam Hyperlipidemia Performed By: #### C MP, CBC, TSH3, LIPID #### [facility] [address] [place] [address] Serum or plasma anion gap de terminationOrdered By: Premsaloni Rodriguezs on 09-18-2023 Anion gap [Moles/Vol] 12.3 mmol/L Normal 6.0-15.0 [facility] Comment on above: Order Comment: Reaso n for Exam Hyperlipidemia Performed By: #### C MP, CBC, TSH3, LIPID #### [facility] [address] [place] [address] Serum or plasma high density lipoprotein (HDL) cholesterol measurementOrdered By: Prem Goel on 09-18-2023 Cholesterol in HDL [Mass/Vol] 69 mg/dL Normal 23-92 [facility] Comment on above: HDL CHOL ATP-III CLA SSIFICATION Cardiovascular RiskHDL > or equal to 60 mg/dL LOWHDL < 40 mg/dL HIGH Order Comment: Reaso n for Exam Hyperlipidemia Result Comment: HDL CHOL ATP-III CLASSIFICATION Cardiovascular Risk HDL > or equal to 60 mg/dL LOW HDL < 40 mg/dL HIGH Performed By: #### C MP, CBC, TSH3, LIPID #### [facility] [address] Serum or plasma total choles terol/high density lipoprotein (HDL) cholesterol mass ratOrdered By: Prem Goel on 09-18-2023 Cholesterol.total/Araceli sterol in HDL [Mass ratio] 4.2 {ratio} Normal <5.0 [facility] Comment on above: Order Comment: Reaso n for Exam Hyperlipidemia Performed By: #### C MP, CBC, TSH3, LIPID #### [facility] [address] [place] [address] [place] Sodium [Moles/volume] in Ser um or PlasmaOrdered By: Prem Goel on 09-18-2023 Sodium [Moles/Vol] 141 mmol/L Normal 136-145 [facility] Comment on above: Order Comment: Reaso n for Exam Hyperlipidemia Performed By: #### C MP, CBC, TSH3, LIPID #### [facility] [address] [place] [address] [place] Thyrotropin [Units/volume] i n Serum or PlasmaOrdered By: Prem Goel on 09-18-2023 TSH Qn 2.60 m[IU]/L Normal 0.45-5.33 [facility] Comment on above: Order Comment: Reaso n for Exam Hyperlipidemia Result Comment: PERF ORMED BY: [place] [address] PATHOLOGIST [employer] BEV TALBERT M.D. Performed By: #### C MP, CBC, TSH3, LIPID #### [facility] [address] [place] [address] [place] Triglyceride [Mass/volume] i n Serum or PlasmaOrdered By: Prem Goel on 09-18-2023 Triglyceride [Mass/Vol] 116 mg/dL 0-149 [facility] Comment on above: TRIG ATP III CLASSIF ICATIONTRIG less than 150 mg/dL NormalTRIG 150-199 mg/dL Borderline highTRIG 200-500 mg/dL High TRIG greater than 500 mg/dL Very highStandard traceable to the Center for Disease Conrtrol and Prevention (CDC) test method. Urea nitrogen [Mass/volume] in Serum or PlasmaOrdered By: Prem Goel on 09-18-2023 Urea nitrogen [Mass/Vol] 17 mg/dL Normal 7-25 [facility] Comment on above: Order Comment: Reaso n for Exam Hyperlipidemia Performed By: #### C MP, CBC, TSH3, LIPID #### [facility] [address] Basophils Auto (Bld) [#/Vol] on 08-07-2023 Basophils (Bld) [#/Vol] 0.0 10 3/uL 0.0-0.1 [facility] Basophils/100 WBC Auto (Bld) on 08-07-2023 Basophils/100 WBC (Bld) 0.5 % 0.2-2.0 [facility] Eosinophils/100 WBC Auto (Bl d)on 08-07-2023 Eosinophils/100 WBC (Bld) 1.1 % 0.9-7.0 [facility] Erythrocyte distribution wid th Auto (RBC) [Ratio]on 08-07-2023 Erythrocyte distribution width (RBC) [Ratio] 12.6 % 11.0-15.0 [facility] Estimated glomerular filtrat ion rate (GFR) non- Americanon 08-07-2023 GFR/1.73 sq M.predicted among non-blacks MDRD (S/P/Bld) [Vol rate/Area] mL/min/{1.73_m2} >=60 [facility] Globulin Calc (S) [Mass/Vol] on 08-07-2023 Globulin (S) [Mass/Vol] 3.8 g/dL [facility] Hematocrit Auto (Bld) [Volum e fraction]on 08-07-2023 Hematocrit (Bld) [Volume fraction] 48.4 % 36.0-48.0 [facility] Hemoglobin [Mass/volume] in Bloodon 08-07-2023 Hemoglobin (Bld) [Mass/Vol] 15.4 g/dL 12.0-16.0 [facility] - Chemistry and C hemistry - challengeon 08-07-2023 Albumin [Mass/Vol] 3.4 g/dL 3.4-5.0 [facility] ALP [Catalytic activity/Vol] 118 U/L 46-116 [facility] ALT [Catalytic activity/Vol] 23 U/L 14-59 [facility] AST [Catalytic activity/Vol] 20 U/L 15-37 [facility] Bilirubin [Mass/Vol] 0.4 mg/dL 0.2-1.0 [facility] Calcium [Mass/Vol] 9.4 mg/dL 8.5-10.1 [facility] Chloride [Moles/Vol] 106 mmol/L 98-107 [facility] CO2 [Moles/Vol] 28.0 mmol/L 21.0-32.0 [facility] Creatinine [Mass/Vol] 0.80 mg/dL 0.55-1.02 [facility] GFR/1.73 sq M.predicted MDRD (S/P/Bld) [Vol rate/Area] mL/min/{1.73_m2} >=60 [facility] Glucose [Mass/Vol] 121 mg/dL 74-106 [facility] Potassium [Moles/Vol] 3.9 mmol/L 3.5-5.1 [facility] Protein [Mass/Vol] 7.2 g/dL 6.4-8.2 [facility] Sodium [Moles/Vol] 142 mmol/L 136-145 [facility] Urea nitrogen [Mass/Vol] 20.0 mg/dL 7.0-18.0 [facility] Urea nitrogen/Creatinine [Mass ratio] 25.0 mg/mg [facility] - Hematology and Cell countson 08-07-2023 Immature granulocytes/100 WBC (Bld) 0.3 % 0.0-0.5 [facility] Leukocytes [#/volume] correc guillermina for nucleated erythrocytes in Blood by Automated counon 08-07-2023 WBC corrected for nucl RBC Auto (Bld) [#/Vol] 7.5 10 3/uL 4.0-11.0 [facility] Lymphocytes Auto (Bld) [#/Vo l]on 08-07-2023 Lymphocytes (Bld) [#/Vol] 3.4 10 3/uL 1.2-3.8 [facility] Lymphocytes/100 WBC Auto (Bl d)on 08-07-2023 Lymphocytes/100 WBC (Bld) 45.6 % 20.5-60.0 [facility] MCH Auto (RBC) [Entitic mass ]on 08-07-2023 MCH (RBC) [Entitic mass] 29.7 pg 26.7-34.0 [facility] MCHC Auto (RBC) [Mass/Vol]on 08-07-2023 MCHC (RBC) [Mass/Vol] 31.8 g/dL 29.9-35.2 [facility] MCV Auto (RBC) [Entitic vol] on 08-07-2023 MCV (RBC) [Entitic vol] 93.3 fL 81.0-99.0 [facility] Monocytes Auto (Bld) [#/Vol] on 08-07-2023 Monocytes (Bld) [#/Vol] 0.7 10 3/uL 0.3-0.8 [facility] Monocytes/100 WBC Auto (Bld) on 08-07-2023 Monocytes/100 WBC (Bld) 8.6 % 1.7-12.0 [facility] Neutrophils Auto (Bld) [#/Vo l]on 08-07-2023 Neutrophils (Bld) [#/Vol] 3.3 10 3/uL 1.4-6.5 [facility] Neutrophils/100 WBC Auto (Bl d)on 08-07-2023 Neutrophils/100 WBC (Bld) 43.9 % 43.0-75.0 [facility] No Panel Informationon 08-06 Eosinophils # (Auto) 0.1 10 3/uL 0.0-0.7 [facility] Immature Granulocyte # (Auto) 0.02 10 3/uL 0.00-0.03 [facility] Platelet mean volume Auto (B ld) [Entitic vol]on 08-07-2023 Platelet mean volume (Bld) [Entitic vol] 12.5 fL 9.5-13.5 [facility] Platelets Auto (Bld) [#/Vol] on 08-07-2023 Platelets (Bld) [#/Vol] 238 10 3/uL 150-450 [facility] RBC Auto (Bld) [#/Vol]on RBC (Bld) [#/Vol] 5.19 10 6/uL 4.20-5.40 [facility] Serum or plasma albumin/glob ulin mass ratioon 08-07-2023 Albumin/Globulin [Mass ratio] 0.9 {ratio} [facility] Serum or plasma anion gap de terminationon 08-07-2023 Anion gap [Moles/Vol] 11.9 mmol/L [facility] Alanine aminotransferase [En zymatic activity/volume] in Serum or PlasmaOrdered By: Prem Goel on 03-12-2023 ALT [Catalytic activity/Vol] 11 U/L 7-52 [facility] Albumin [Mass/volume] in Ser um or Plasma by Bromocresol green (BCG) dye binding methoOrdered By: Prem Goel on 03-12-2023 Albumin BCG dye [Mass/Vol] 3.9 g/dL 3.5-5.7 [facility] Alkaline phosphatase [Enzyma tic activity/volume] in Serum or PlasmaOrdered By: Prem Goel on 03-12-2023 ALP [Catalytic activity/Vol] 89 U/L 34-104 [facility] Aspartate aminotransferase [ Enzymatic activity/volume] in Serum or PlasmaOrdered By: Prem Goel on 03-12-2023 AST [Catalytic activity/Vol] 15 U/L 13-39 [facility] Basophils Auto (Bld) [#/Vol] Ordered By: Prem Goel on 03-12-2023 Basophils (Bld) [#/Vol] 0.0 10*3/uL 0.0-0.2 [facility] Basophils/100 WBC Auto (Bld) Ordered By: Prem Goel on 03-12-2023 Basophils/100 WBC (Bld) 0.7 % . [facility] Bilirubin.total [Mass/volume ] in Serum or PlasmaOrdered By: Prem Goel on 03-12-2023 Bilirubin [Mass/Vol] 0.6 mg/dL 0.3-1.0 [facility] Calcium [Mass/volume] in Ser um or PlasmaOrdered By: Prem Goel on 03-12-2023 Calcium [Mass/Vol] 9.4 mg/dL 8.6-10.3 [facility] Carbon dioxide, total [Moles /volume] in Serum or PlasmaOrdered By: Prem Goel on 03-12-2023 CO2 [Moles/Vol] 28.2 mmol/L 21.0-31.0 [facility] Chloride [Moles/volume] in S dede or PlasmaOrdered By: Prem Goel on 03-12-2023 Chloride [Moles/Vol] 107 mmol/L 98-107 [facility] Cholesterol [Mass/volume] in Serum or PlasmaOrdered By: Perm Goel on 03-12-2023 Cholesterol [Mass/Vol] 228 mg/dL 140-200 [facility] Comment on above: Chol less than 200 m g/dl low riskChol 201-239 mg/dl borderline riskChol 240 mg/dl and greater high risk Cholesterol in LDL Calc [Mas s/Vol]Ordered By: Prem Goel on 03-12-2023 Cholesterol in LDL [Mass/Vol] 146 mg/dL 0-100 [facility] Comment on above: LDL ATP III CLASSIFI CATIONLDL less than 100 mg/dL OptimalLDL 100-129 mg/dL Near or above optimalLDL 130-159 mg/dL Borderline highLDL 160-189 mg/dL HighLDL greater than 189 mg/dL Very high Cholesterol in VLDL Calc [Ma ss/Vol]Ordered By: Prem Goel on 03-12-2023 Cholesterol in VLDL [Mass/Vol] 15 mg/dL [facility] Creatinine [Mass/volume] in Serum or PlasmaOrdered By: Prem Goel on 03-12-2023 Creatinine [Mass/Vol] 0.77 mg/dL 0.60-1.20 [facility] Eosinophils Auto (Bld) [#/Vo l]Ordered By: Prem Goel on 03-12-2023 Eosinophils (Bld) [#/Vol] 0.1 10*3/uL 0.0-0.45 [facility] Eosinophils/100 WBC Auto (Bl d)Ordered By: Prem Goel on 03-12-2023 Eosinophils/100 WBC (Bld) 2.3 % . [facility] Erythrocyte distribution wid th Auto (RBC) [Ratio]Ordered By: Prem Goel on 03-12-2023 Erythrocyte distribution width (RBC) [Ratio] 12.9 % 11.9-15.3 [facility] Globulin Calc (S) [Mass/Vol] Ordered By: Prem Goel on 03-12-2023 Globulin (S) [Mass/Vol] 2.2 g/dL [facility] Glucose [Mass/volume] in Ser um or PlasmaOrdered By: Prem Goel on 03-12-2023 Glucose [Mass/Vol] 96 mg/dL 70-100 [facility] Comment on above: ADA recommended refe rence rangeRandom Glucose Reference Range is dependent on time and content of last meal. Glucose of more than 200 mg/dL in a nonstressed, ambulatory subject supports the diagnosis of Diabetes Mellitus. Hematocrit Auto (Bld) [Volum e fraction]Ordered By: Prem Goel on 03-12-2023 Hematocrit (Bld) [Volume fraction] 45.2 % 34.0-46.4 [facility] Hemoglobin [Mass/volume] in BloodOrdered By: Prem Goel on 03-12-2023 Hemoglobin (Bld) [Mass/Vol] 14.9 g/dL 11.8-15.4 [facility] Leukocytes [#/volume] correc guillermina for nucleated erythrocytes in Blood by Automated counOrdered By: Prem Goel on 03-12-2023 WBC corrected for nucl RBC Auto (Bld) [#/Vol] 6.1 10*3/uL 3.8-11.6 [facility] Lymphocytes Auto (Bld) [#/Vo l]Ordered By: Prem Goel on 03-12-2023 Lymphocytes (Bld) [#/Vol] 2.6 10*3/uL 1.00-4.8 [facility] Lymphocytes/100 WBC Auto (Bl d)Ordered By: Prem Goel on 03-12-2023 Lymphocytes/100 WBC (Bld) 42.3 % . [facility] MCH Auto (RBC) [Entitic mass ]Ordered By: Prem Goel on 03-12-2023 MCH (RBC) [Entitic mass] 29.8 pg 24.7-34.3 [facility] MCHC Auto (RBC) [Mass/Vol]Or dered By: Prem Goel on 03-12-2023 MCHC (RBC) [Mass/Vol] 33.0 g/dL 32.0-35.0 [facility] MCV Auto (RBC) [Entitic vol] Ordered By: Prem Goel on 03-12-2023 MCV (RBC) [Entitic vol] 90.5 fL 80-100 [facility] Monocytes Auto (Bld) [#/Vol] Ordered By: Prem Goel on 03-12-2023 Monocytes (Bld) [#/Vol] 0.6 10*3/uL 0.0-0.8 [facility] Monocytes/100 WBC Auto (Bld) Ordered By: Prem Goel on 03-12-2023 Monocytes/100 WBC (Bld) 9.1 % . [facility] Neutrophils Auto (Bld) [#/Vo l]Ordered By: rPem Goel on 03-12-2023 Neutrophils (Bld) [#/Vol] 2.8 10*3/uL 1.8-7.7 [facility] Neutrophils/100 WBC Auto (Bl d)Ordered By: Prem Goel on 03-12-2023 Neutrophils/100 WBC (Bld) 45.6 % . [facility] No Panel InformationOrdered By: Prem Goel on 03-12-2023 Estimated GFR (CKD-EPI) > 60.0 mL/Min [facility] Creatinine Clearance (Chem N/A [facility] Nucleated erythrocytes [Pres ence] in Blood by Automated countOrdered By: Prem Goel on 03-12-2023 Nucleated RBC Auto Ql (Bld) 0.1 /100{WBC} 0-0.5 [facility] Platelet mean volume Auto (B ld) [Entitic vol]Ordered By: Prem Goel on 03-12-2023 Platelet mean volume (Bld) [Entitic vol] 10.2 fL 6.3-10.7 [facility] Platelets Auto (Bld) [#/Vol] Ordered By: Prem Goel on 03-12-2023 Platelets (Bld) [#/Vol] 201 10*3/uL 150-450 [facility] Potassium [Moles/volume] in Serum or PlasmaOrdered By: Prem Goel on 03-12-2023 Potassium [Moles/Vol] 4.3 mmol/L 3.5-5.1 [facility] Protein [Mass/volume] in Ser um or PlasmaOrdered By: Prem Goel on 03-12-2023 Protein [Mass/Vol] 6.1 g/dL 6.4-8.9 [facility] RBC Auto (Bld) [#/Vol]Ordere d By: Prem Goel on 03-12-2023 RBC (Bld) [#/Vol] 4.99 10*6/uL 3.60-5.00 [facility] Serum or plasma albumin/glob ulin mass ratioOrdered By: Prem Goel on 03-12-2023 Albumin/Globulin [Mass ratio] 1.8 {ratio} [facility] Serum or plasma anion gap de terminationOrdered By: Prem Goel on 03-12-2023 Anion gap [Moles/Vol] 10.1 mmol/L 6.0-15.0 [facility] Serum or plasma high density lipoprotein (HDL) cholesterol measurementOrdered By: Prem Goel on 03-12-2023 Cholesterol in HDL [Mass/Vol] 66 mg/dL 23-92 [facility] Comment on above: HDL CHOL ATP-III CLA SSIFICATION Cardiovascular RiskHDL > or equal to 60 mg/dL LOWHDL < 40 mg/dL HIGH Serum or plasma total choles terol/high density lipoprotein (HDL) cholesterol mass ratOrdered By: Prem Goel on 03-12-2023 Cholesterol.total/Araceli sterol in HDL [Mass ratio] 3.5 {ratio} <5.0 [facility] Sodium [Moles/volume] in Ser um or PlasmaOrdered By: Prem Goel on 03-12-2023 Sodium [Moles/Vol] 141 mmol/L 136-145 [facility] Thyrotropin [Units/volume] i n Serum or PlasmaOrdered By: Prem Goel on 03-12-2023 TSH Qn 1.91 m[IU]/L 0.45-5.33 [facility] Triglyceride [Mass/volume] i n Serum or PlasmaOrdered By: Prem Goel on 03-12-2023 Triglyceride [Mass/Vol] 78 mg/dL 0-149 [facility] Comment on above: TRIG ATP III CLASSIF ICATIONTRIG less than 150 mg/dL NormalTRIG 150-199 mg/dL Borderline highTRIG 200-500 mg/dL High TRIG greater than 500 mg/dL Very highStandard traceable to the Center for Disease Conrtrol and Prevention (CDC) test method. Urea nitrogen [Mass/volume] in Serum or PlasmaOrdered By: Prem Goel on 03-12-2023 Urea nitrogen [Mass/Vol] 18 mg/dL 7-25 [facility] WBC Auto (Bld) [#/Vol]Ordere d By: Prem Goel on 03-12-2023 WBC (Bld) [#/Vol] 6.1 10*3/uL 3.8-11.6 [facility] Albumin [Mass/volume] in Ser um or PlasmaOrdered By: Prem Goel on 04-29-2022 Albumin [Mass/Vol] 3.4 g/dL 3.2-5.5 [facility] Basophils Auto (Bld) [#/Vol] Ordered By: Prem Goel on 04-29-2022 Basophils (Bld) [#/Vol] 0.0 10*3/uL 0.0-0.2 [facility] Basophils/100 WBC Auto (Bld) Ordered By: Prem Goel on 04-29-2022 Basophils/100 WBC (Bld) 0.3 % . [facility] Cholesterol [Mass/volume] in Serum or PlasmaOrdered By: Prem Goel on 04-29-2022 Cholesterol [Mass/Vol] 196 mg/dL 140-200 [facility] Comment on above: Chol less than 200 m g/dl low riskChol 201-239 mg/dl borderline riskChol 240 mg/dl and greater high risk Cholesterol in LDL Calc [Mas s/Vol]Ordered By: Prem Goel on 04-29-2022 Cholesterol in LDL [Mass/Vol] 109 mg/dL 0-100 [facility] Comment on above: LDL ATP III CLASSIFI CATIONLDL less than 100 mg/dL OptimalLDL 100-129 mg/dL Near or above optimalLDL 130-159 mg/dL Borderline highLDL 160-189 mg/dL HighLDL greater than 189 mg/dL Very high Cholesterol in VLDL Calc [Ma ss/Vol]Ordered By: Prem Goel on 04-29-2022 Cholesterol in VLDL [Mass/Vol] 10 mg/dL [facility] Creatinine and Glomerular fi ltration rate.predicted panel (S/P/Bld)Ordered By: Prem Goel on 04-29-2022 Creatinine [Mass/Vol] 0.80 mg/dL 0.44-1.03 [facility] Eosinophils Auto (Bld) [#/Vo l]Ordered By: Prem Goel on 04-29-2022 Eosinophils (Bld) [#/Vol] 0.1 10*3/uL 0.0-0.45 [facility] Eosinophils/100 WBC Auto (Bl d)Ordered By: Prem Goel on 04-29-2022 Eosinophils/100 WBC (Bld) 0.5 % . [facility] Erythrocyte distribution wid th Auto (RBC) [Ratio]Ordered By: Prem Goel on 04-29-2022 Erythrocyte distribution width (RBC) [Ratio] 13.4 % 11.9-15.3 [facility] Estimated glomerular filtrat ion rate (GFR) non- AmericanOrdered By: Prem Goel on 04-29-2022 GFR/1.73 sq M.predicted among non-blacks MDRD (S/P/Bld) [Vol rate/Area] > 60 mL/Min [facility] Globulin Calc (S) [Mass/Vol] Ordered By: Prem Goel on 04-29-2022 Globulin (S) [Mass/Vol] 3.3 g/dL [facility] Hematocrit Auto (Bld) [Volum e fraction]Ordered By: Prem Goel on 04-29-2022 Hematocrit (Bld) [Volume fraction] 46.2 % 34.0-46.4 [facility] Hemoglobin [Mass/volume] in BloodOrdered By: Prem Goel on 04-29-2022 Hemoglobin (Bld) [Mass/Vol] 14.9 g/dL 11.8-15.4 [facility] Laboratory - Hematology and Cell countsOrdered By: Prem Goel on 04-29-2022 Nucleated RBC/100 WBC (Bld) [Ratio] 0.0 % 0-0.5 [facility] Leukocytes [#/volume] in Blo od by Automated countOrdered By: Prem Goel on 04-29-2022 WBC (Bld) [#/Vol] 10.7 10*3/uL 4.5-11.0 [facility] Lymphocytes Auto (Bld) [#/Vo l]Ordered By: Prem Goel on 04-29-2022 Lymphocytes (Bld) [#/Vol] 1.9 10*3/uL 1.00-4.8 [facility] Lymphocytes/100 WBC Auto (Bl d)Ordered By: Prem Goel on 04-29-2022 Lymphocytes/100 WBC (Bld) 17.7 % . [facility] MCH Auto (RBC) [Entitic mass ]Ordered By: Prem Goel on 04-29-2022 MCH (RBC) [Entitic mass] 30.0 pg 24.7-34.3 [facility] MCHC Auto (RBC) [Mass/Vol]Or dered By: Prem Goel on 04-29-2022 MCHC (RBC) [Mass/Vol] 32.1 g/dL 32.0-35.0 [facility] MCV Auto (RBC) [Entitic vol] Ordered By: Prem Goel on 04-29-2022 MCV (RBC) [Entitic vol] 93.4 fL 80-100 [facility] Monocytes Auto (Bld) [#/Vol] Ordered By: Prem Goel on 04-29-2022 Monocytes (Bld) [#/Vol] 1.1 10*3/uL 0.0-0.8 [facility] Monocytes/100 WBC Auto (Bld) Ordered By: Prem Goel on 04-29-2022 Monocytes/100 WBC (Bld) 10.4 % . [facility] Neutrophils Auto (Bld) [#/Vo l]Ordered By: Prem Goel on 04-29-2022 Neutrophils (Bld) [#/Vol] 7.6 10*3/uL 1.8-7.7 [facility] Neutrophils/100 WBC Auto (Bl d)Ordered By: Prem Goel on 04-29-2022 Neutrophils/100 WBC (Bld) 71.1 % . [facility] No Panel InformationOrdered By: Prem Goel on 04-29-2022 Estimated GFR () > 60 mL/Min [facility] Comment on above: GFR estimated refere nce range: According to KDOQI guidelines, <60 ml/min/1.73m2 is sufficient to diagnose a patient with chronic kidney disease. Pharmacy Creatinine Clearance (Chem N/A [facility] Platelet mean volume Auto (B ld) [Entitic vol]Ordered By: Prem Goel on 04-29-2022 Platelet mean volume (Bld) [Entitic vol] 10.2 fL 6.3-10.7 [facility] Platelets Auto (Bld) [#/Vol] Ordered By: Prem Goel on 04-29-2022 Platelets (Bld) [#/Vol] 238 10*3/uL 150-450 [facility] Protein [Mass/volume] in Ser um or PlasmaOrdered By: Prem Goel on 04-29-2022 Protein [Mass/Vol] 6.7 g/dL 6.1-7.9 [facility] RBC Auto (Bld) [#/Vol]Ordere d By: Prem Goel on 04-29-2022 RBC (Bld) [#/Vol] 4.95 10*6/uL 3.60-5.00 [facility] Serum or plasma alanine tobias otransferase measurement without P-5'-P (enzymatic activiOrdered By: Prem Goel on 04-29-2022 ALT No additional P-5'-P [Catalytic activity/Vol] 18 U/L 10-60 [facility] Serum or plasma albumin/glob ulin mass ratioOrdered By: Prem Goel on 04-29-2022 Albumin/Globulin [Mass ratio] 1.0 {ratio} [facility] Serum or plasma alkaline joshua sphatase measurement (enzymatic activity/volume)Ordered By: Prem Goel on 04-29-2022 ALP [Catalytic activity/Vol] 100 U/L 32-92 [facility] Serum or plasma anion gap de terminationOrdered By: Prem Goel on 04-29-2022 Anion gap [Moles/Vol] 10.5 mmol/L 6.0-15.0 [facility] Serum or plasma aspartate am inotransferase measurement (enzymatic activity/volume)Ordered By: Prem Goel on 04-29-2022 AST [Catalytic activity/Vol] 19 U/L 10-42 [facility] Serum or plasma calcium erica urement (mass/volume)Ordered By: Prem Goel on 04-29-2022 Calcium [Mass/Vol] 9.2 mg/dL 8.2-10.2 [facility] Serum or plasma chloride omaira surement (moles/volume)Ordered By: Prem Goel on 04-29-2022 Chloride [Moles/Vol] 102 mmol/L 95-114 [facility] Serum or plasma glucose erica urement (mass/volume)Ordered By: Prem Goel on 04-29-2022 Glucose [Mass/Vol] 111 mg/dL 70-100 [facility] Comment on above: ADA recommended refe rence rangeRandom Glucose Reference Range is dependent on time and content of last meal. Glucose of more than 200 mg/dL in a nonstressed, ambulatory subject supports the diagnosis of Diabetes Mellitus. Serum or plasma high density lipoprotein (HDL) cholesterol measurementOrdered By: Prem Goel on 04-29-2022 Cholesterol in HDL [Mass/Vol] 76 mg/dL 35-85 [facility] Comment on above: HDL CHOL ATP-III CLA SSIFICATION Cardiovascular RiskHDL > or equal to 60 mg/dL LOWHDL < 40 mg/dL HIGH Serum or plasma potassium me asurement (moles/volume)Ordered By: Prem Goel on 04-29-2022 Potassium [Moles/Vol] 4.0 mmol/L 3.5-5.1 [facility] Serum or plasma sodium measu rement (moles/volume)Ordered By: Prem Goel on 04-29-2022 Sodium [Moles/Vol] 137 mmol/L 136-146 [facility] Serum or plasma total biliru bin measurement (mass/volume)Ordered By: Prem Goel on 04-29-2022 Bilirubin [Mass/Vol] 0.8 mg/dL 0.3-1.2 [facility] Serum or plasma total carbon dioxide measurement (moles/volume)Ordered By: Prem Goel on 04-29-2022 CO2 [Moles/Vol] 28.5 mmol/L 22.0-30.0 [facility] Serum or plasma total choles terol/high density lipoprotein (HDL) cholesterol mass ratOrdered By: Prem Goel on 04-29-2022 Cholesterol.total/Araceli sterol in HDL [Mass ratio] 2.6 {ratio} <5.0 [facility] Serum or plasma urea nitroge n measurement (mass/volume)Ordered By: Prem Goel on 04-29-2022 Urea nitrogen [Mass/Vol] 14 mg/dL 02-28 [facility] TSH DL <= 0.005 mIU/L QnOrde red By: Prem Goel on 04-29-2022 TSH Qn 1.74 m[IU]/L 0.45-5.33 [facility] Triglyceride [Mass/volume] i n Serum or PlasmaOrdered By: Prem Goel on 04-29-2022 Triglyceride [Mass/Vol] 53 mg/dL 35-149 [facility] Comment on above: TRIG ATP III CLASSIF ICATIONTRIG less than 150 mg/dL NormalTRIG 150-199 mg/dL Borderline highTRIG 200-500 mg/dL High TRIG greater than 500 mg/dL Very highStandard traceable to the Center for Disease Conrtrol and Prevention (CDC) test method. A1C HEMOGLOBINon 04-30-2021 HbA1c (Bld) [Mass fraction] 5.8 % [employer] Other HbA1c (Bld) [Mass fraction]o n 04-30-2021 A1C HEMOGLOBIN [facility] [employer] Other [facility] CARDIAC STRESS/REST (DOUGLAS CARDIAL PERFUSION/MIBI)on 04-09-2020 [facility] CARDIAC STRESS/REST (MYOCARDIAL PERFUSION/MIBI) Patient Name: MARY WILKERSON STUDY: MYOCARDIAL PERFUSION STRESS TEST WITH LEXISCAN Performing facility: [facility], [address] [place] [address], [address], [place] [address] [facility] Provider: WP SMYTH PCP: Dr. PREM GOEL Supervising provider: WP MSYTH INDICATION: CP HISTORY: Gender: F; Age: 84 y/o ; Height: 157.48 cm; Weight: 78.3832051 kg. High Cholesterol; CP Family HX CAD; Denies smoking. COMPARISON: Previous nuclear testing completed at [facility]. ACCESSION NUMBER(S): [id number] ORDERING CLINICIAN: MATT SMYTH TECHNIQUE: ONE DAY [...] DUVAL MD Normal [facility] CARDIAC STRESS/REST INJE CTIONon 04-09-2020 [facility] CARDIAC STRESS/REST INJECTION Patient Name: MARY WILKERSON STUDY: MYOCARDIAL PERFUSION STRESS TEST WITH LEXISCAN Performing facility: [facility], [address] [place] [address], [address], [place] [address] [facility] Provider: WP SMYTH PCP: Dr. PREM GOEL Supervising provider: WP SMYTH INDICATION: CP HISTORY: Gender: F; Age: 84 y/o ; Height: 157.48 cm; Weight: 78.7622133 kg. High Cholesterol; CP Family HX CAD; Denies smoking. COMPARISON: Previous nuclear testing completed at [facility]. ACCESSION NUMBER(S): [id number] ORDERING CLINICIAN: MATT SMYTH TECHNIQUE: ONE DAY [...] DUVAL MD Normal [facility] PART 2 STRESS OR REST (N O CHARGE)on 04-09-2020 [facility] PART 2 STRESS OR REST (NO CHARGE) Patient Name: MARY WILKERSON STUDY: MYOCARDIAL PERFUSION STRESS TEST WITH LEXISCAN Performing facility: [facility], [address] [place] [address], [address], [place] [address] [facility] Provider: WP SMYTH PCP: Dr. PREM GOEL Supervising provider: WP SMYTH INDICATION: CP HISTORY: Gender: F; Age: 84 y/o ; Height: 157.48 cm; Weight: 78.9341251 kg. High Cholesterol; CP Family HX CAD; Denies smoking. COMPARISON: Previous nuclear testing completed at [facility]. ACCESSION NUMBER(S): [id number] ORDERING CLINICIAN: MATT SMYTH TECHNIQUE: ONE DAY [...] comparison. Electronically signed by: BRIELLE DUVAL MD [facility] Vital Signs Date Time Vital Sign Value Performing Clinician Facility 09-06-2024 13:46-0400 Body height 1554.48 cm [facility] 09-06-2024 13:46-0400 Body mass index (BMI) [Ratio] 0.3 kg/m2 [facility] 09-06-2024 13:46-0400 Body temperature 97.1 [degF] [facility] 09-06-2024 13:46-0400 Body weight 72.6 kg [facility] 09-06-2024 13:46-0400 Diastolic blood pressure 98 mm[Hg] [facility] 09-06-2024 13:46-0400 Heart rate 69 /min [facility] 09-06-2024 13:46-0400 Respiratory rate 19 /min [facility] 09-06-2024 13:46-0400 SaO2% (BldA) [Mass fraction] 69 % [facility] 09-06-2024 13:46-0400 Systolic blood pressure 145 mm[Hg] [facility] 04-04-2024 08:12-0400 Body height 154.94 cm DO Prem Kuns Work Phone: [facility] 04-04-2024 08:12-0400 Body mass index (BMI) [Ratio] 30.2 kg/m2 DO Prem Kuns Work Phone: [facility] 04-04-2024 08:12-0400 Body weight 72.57 kg DO Prem Kuns Work Phone: [facility] 04-04-2024 08:12-0400 Diastolic blood pressure 80 mm[Hg] DO Prem Kuns Work Phone: [facility] 04-04-2024 08:12-0400 Heart rate 65 /min DO Prem Kuns Work Phone: [facility] 04-04-2024 08:12-0400 Respiratory rate 16 /min DO Prem Kuns Work Phone: [facility] 04-04-2024 08:12-0400 SaO2% (BldA) [Mass fraction] 97 % DO Prem Kuns Work Phone: [facility] 04-04-2024 08:12-0400 Systolic blood pressure 118 mm[Hg] DO Prem Kuns Work Phone: [facility] 12-29-2023 10:06-0400 Body height 154.94 cm DO Prem Kuns Work Phone: [facility] 12-29-2023 10:06-0400 Body mass index (BMI) [Ratio] 30.2 kg/m2 DO Prem Kuns Work Phone: [facility] 12-29-2023 10:06-0400 Body weight 72.57 kg DO Prem Kuns Work Phone: [facility] 12-29-2023 10:06-0400 Diastolic blood pressure 80 mm[Hg] DO Prem Kuns Work Phone: [facility] 12-29-2023 10:06-0400 Heart rate 56 /min DO Prem Kuns Work Phone: [facility] 12-29-2023 10:06-0400 Respiratory rate 16 /min DO Prem Kuns Work Phone: [facility] 12-29-2023 10:06-0400 SaO2% (BldA) [Mass fraction] 96 % DO Prem Kuns Work Phone: [facility] 12-29-2023 10:06-0400 Systolic blood pressure 124 mm[Hg] DO Prem Kuns Work Phone: [facility] 09-24-2023 09:41-0400 Body height 154.94 cm DO Prem Kuns Work Phone: [facility] 09-24-2023 09:41-0400 Body mass index (BMI) [Ratio] 30.9 kg/m2 DO Prem Kuns Work Phone: [facility] 09-24-2023 09:41-0400 Body weight 74.38 kg DO Prem Kuns Work Phone: [facility] 09-24-2023 09:41-0400 Diastolic blood pressure 80 mm[Hg] DO Prem Kuns Work Phone: [facility] 09-24-2023 09:41-0400 Heart rate 57 /min DO Prem Kuns Work Phone: [facility] 09-24-2023 09:41-0400 Respiratory rate 16 /min DO Prem Kuns Work Phone: [facility] 09-24-2023 09:41-0400 SaO2% (BldA) [Mass fraction] 92 % DO Prem Kuns Work Phone: [facility] 09-24-2023 09:41-0400 Systolic blood pressure 138 mm[Hg] DO Prem Kuns Work Phone: [facility] 03-17-2023 08:45-0400 Body height 154.94 cm Prem Kuns Other [facility] [employer] Other 03-17-2023 08:45-0400 Body mass index (BMI) [Ratio] 30.98 kg/m2 Prem Kuns Other [employer] Other 03-17-2023 08:45-0400 Body weight 74.39 kg Prem Kuns Other [employer] Other 03-17-2023 08:45-0400 Diastolic blood pressure 76 mm[Hg] Prem Kuns Other [employer] Other 03-17-2023 08:45-0400 Respiratory rate 16 /min Prem Kuns Other [employer] Other 03-17-2023 08:45-0400 SaO2% (BldA) [Mass fraction] 96 % Prem Kuns Other [employer] Other 03-17-2023 08:45-0400 Systolic blood pressure 120 mm[Hg] Prem Kuns Other [employer] Other 11-12-2022 14:45-0400 Body height 154.94 cm Prem Kuns Other [employer] Other 11-12-2022 14:45-0400 Body mass index (BMI) [Ratio] 31.36 kg/m2 Prem Kuns Other [employer] Other 11-12-2022 14:45-0400 Body weight 75.3 kg Prem Kuns Other [employer] Other 11-12-2022 14:45-0400 Diastolic blood pressure 68 mm[Hg] Prem Kuns Other [employer] Other 11-12-2022 14:45-0400 Respiratory rate 16 /min Prem Kuns Other [employer] Other 11-12-2022 14:45-0400 SaO2% (BldA) [Mass fraction] 93 % Prem Kuns Other [employer] Other 11-12-2022 14:45-0400 Systolic blood pressure 124 mm[Hg] Prem Kuns Other [employer] Other 08-23-2022 11:15-0400 Body height 154.94 cm Prem Kuns Other [employer] Other 01-28-2022 11:15-0400 Body mass index (BMI) [Ratio] 30.98 kg/m2 Prem Kuns Other [employer] Other 01-28-2022 11:15-0400 Body weight 74.39 kg Prem Kuns Other [employer] Other 01-28-2022 11:15-0400 Diastolic blood pressure 82 mm[Hg] Prem Kuns Other [employer] Other 01-28-2022 11:15-0400 Respiratory rate 18 /min Prem Kuns Other [employer] Other 01-28-2022 11:15-0400 SaO2% (BldA) [Mass fraction] 95 % Prem Kuns Other [employer] Other 01-28-2022 11:15-0400 Systolic blood pressure 142 mm[Hg] Prem Kuns Other [employer] Other 08-15-2021 14:45-0500 Body height 154.94 cm Prem Kuns Other [employer] Other 08-15-2021 14:45-0500 Body mass index (BMI) [Ratio] 30.04 kg/m2 Prem Kuns Other [employer] Other 08-15-2021 14:45-0500 Body weight 72.12 kg Prem Kuns Other [employer] Other 08-15-2021 14:45-0500 Diastolic blood pressure 80 mm[Hg] Prem Kuns Other [employer] Other 08-15-2021 14:45-0500 Respiratory rate 16 /min Prem Kuns Other [employer] Other 08-15-2021 14:45-0500 SaO2% (BldA) [Mass fraction] 99 % Prem Kuns Other [employer] Other 08-15-2021 14:45-0500 Systolic blood pressure 142 mm[Hg] Prem Kuns Other [employer] Other 04-30-2021 11:45-0500 Body height 154.94 cm Prem Kuns Other [employer] Other 04-30-2021 11:45-0500 Body mass index (BMI) [Ratio] 29.74 kg/m2 Prem Kuns Other [employer] Other 04-30-2021 11:45-0500 Body weight 71.4 kg Prem Kuns Other [employer] Other 04-30-2021 11:45-0500 Diastolic blood pressure 87 mm[Hg] Prem Kuns Other [employer] Other 04-30-2021 11:45-0500 Respiratory rate 18 /min Prem Kuns Other [employer] Other 04-30-2021 11:45-0500 SaO2% (BldA) [Mass fraction] 93 % Prem Kuns Other [employer] Other 04-30-2021 11:45-0500 Systolic blood pressure 136 mm[Hg] Prem Kuns Other [employer] Other 02-28-2021 11:15-0400 Body height 154.94 cm Prem Kuns Other [employer] Other 02-28-2021 11:15-0400 Body mass index (BMI) [Ratio] 29.85 kg/m2 Prem Kuns Other [employer] Other 02-28-2021 11:15-0400 Body weight 71.67 kg Prem Kuns Other [employer] Other 02-28-2021 11:15-0400 Diastolic blood pressure 86 mm[Hg] Prem Kuns Other [employer] Other 02-28-2021 11:15-0400 Respiratory rate 16 /min Prem Kuns Other [employer] Other 02-28-2021 11:15-0400 SaO2% (BldA) [Mass fraction] 97 % Prem Kuns Other [employer] Other 02-28-2021 11:15-0400 Systolic blood pressure 134 mm[Hg] Prem Kuns Other [employer] Other Encounters Encounter Date Encounter Type Care Provider Facility Start: 02-20-2025 End: 02-20-2025 ambulatory Isidro Resendiz MD Facility:[facility] Start: 01-30-2025 End: 01-30-2025 ambulatory Isidro Resendiz MD Facility: [facility] Start: 09-06-2024 End: 09-06-2024 ambulatory [facility] Work Phone: Start: 09-06-2024 End: 09-06-2024 Patient encounter procedure [facility] Physician [facility] Work Phone: Start: 04-04-2024 End: 04-04-2024 ambulatory DO Prem Kuns Work Phone: [facility] Work Phone: Start: 04-04-2024 End: 04-04-2024 Patient encounter procedure DO Prem Kuns Work Phone: [facility] [place] Work Phone: Start: 04-04-2024 End: 04-04-2024 ambulatory DO Prem Kuns Work Phone: [facility] Work Phone: Start: 04-04-2024 End: 04-04-2024 Patient encounter procedure DO Prem Kuns Work Phone: [facility] Physician [facility] [place] Work Phone: Start: 03-30-2024 End: 03-30-2024 Patient encounter procedure DO Prem Kuns Work Phone: [facility] [place] Work Phone: Start: 03-30-2024 End: 03-30-2024 ambulatory DO Prem Kuns Work Phone: [facility] Work Phone: Start: 12-29-2023 End: 12-29-2023 ambulatory DO Prem Kuns Work Phone: [facility] Work Phone: Start: 12-29-2023 End: 12-29-2023 Patient encounter procedure DO Prem Kuns Work Phone: [facility] Physician [facility] [place] Work Phone: Start: 10-12-2023 End: 10-12-2023 ambulatory DO Prem Kuns Work Phone: [facility] Work Phone: Start: 10-12-2023 End: 10-12-2023 Patient encounter procedure DO Prem Kuns Work Phone: [facility] [place] Work Phone: Start: 10-06-2023 End: 10-06-2023 Patient encounter procedure DO Prem Kuns Work Phone: [facility] Work Phone: Start: 10-06-2023 End: 10-06-2023 ambulatory DO Prem Kuns Work Phone: [facility] Work Phone: Start: 09-24-2023 End: 09-24-2023 ambulatory DO Prem Kuns Work Phone: [facility] Work Phone: Start: 09-24-2023 End: 09-24-2023 Patient encounter procedure DO Prem Kuns Work Phone: [facility] Physician [facility] [place] Work Phone: Start: 09-18-2023 End: 09-18-2023 Patient encounter procedure DO Prem Kuns Work Phone: [facility] [place] Work Phone: Start: 09-18-2023 End: 09-18-2023 ambulatory DO Prem Kuns Work Phone: [facility] Work Phone: Start: 08-11-2023 Non-patient / Non-visit DO Prem Kuns Work Phone: [facility] Physician [facility] Work Phone: Start: 08-07-2023 Non-patient / Non-visit DO Prem Kuns Work Phone[facility] Work Phone: Start: 08-03-2023 Non-patient / Non-visit DO Prem Kuns Work Phone: [facility] Physician [facility] Work Phone: Start: 05-27-2023 End: 05-27-2023 ambulatory Prem Kuns Other [facility] [employer] Other Start: 05-27-2023 Telephone encounter Prem Kuns [facility] [place] Start: 03-17-2023 End: 03-17-2023 ambulatory Prem Kuns Other [facility] [employer] Other Start: 03-17-2023 Office outpatient visit 25 minutes Prem Kuns [facility] [place] Start: 03-12-2023 End: 03-12-2023 ambulatory DO Prem Kuns Work Phone: [facility] Work Phone: Start: 03-12-2023 End: 03-12-2023 Patient encounter procedure DO Prem Kuns Work Phone: [facility] [place] Work Phone: Start: 01-30-2023 End: 01-30-2023 ambulatory Prem Kuns Other [employer] Other Start: 01-30-2023 Telephone encounter Prem Kuns [facility] [place] Start: 11-12-2022 End: 11-12-2022 ambulatory Prem Kuns Other [employer] Other Start: 11-12-2022 Office outpatient visit 25 minutes Prem Kuns [facility] [place] Start: 11-04-2022 End: 11-04-[address] PREMSALONI RODRIGUEZS Facility:[facility] Start: 11-04-2022 Telephone encounter Prem Goel [facility] Start: 10-14-2022 End: 10-14-2022 ambulatory [...] 05-06-2022 Annual wellness visit Prem arevalo Other [employer] Other Start: 04-29-2022 End: 04-29-2022 ambulatory DO Prem Goel Work Phone: [facility] Work Phone: Start: 04-29-2022 End: 04-29-2022 Patient encounter procedure DO Prem Goel Work Phone: [facility] [place] Start: 03-06-2022 End: 03-07-[address] KHOA RAMOS . Facility:[facility] Start: 02-27-2022 End: 02-27-2022 ambulatory Prem Goel Other [employer] Other Start: 02-27-2022 Telephone encounter Prem Goel [facility] Start: 02-18-2022 End: 02-18-[address] KHOA RAMOS . Facility:[facility] Start: 01-28-2022 End: 01-28-2022 ambulatory Prem Goel Other [employer] Other Start: 01-28-2022 Office outpatient visit 15 minutes Prem Kuns [facility] Start: 01-21-2022 End: 01-22-[address] KHOA RAMOS . Facility: Start: 12-02-2021 End: 12-02-2021 ambulatory Prem Kuns Other [employer] Other Start: 12-02-2021 Telephone encounter Prem Kuns [facility] Start: 11-28-2021 End: 11-28-2021 ambulatory Prem Kuns Other [employer] Other Start: 11-28-2021 Telephone encounter Prem Kuns [facility] Start: 10-02-2021 End: 10-02-2021 ambulatory Prem Kuns Other [employer] Other Start: 10-02-2021 Telephone encounter Prem Kuns [facility] Start: 09-10-2021 End: 09-10-2021 ambulatory Prem Kuns Other [employer] Other Start: 09-10-2021 Telephone encounter Prem Kuns [facility] Start: 08-15-2021 End: 08-15-2021 ambulatory Prem Kuns Other [employer] Other Start: 08-15-2021 Office outpatient visit 25 minutes Prem Kuns [facility] Start: 08-12-2021 End: 08-12-2021 ambulatory Prem Kuns Other [employer] Other Start: 08-12-2021 Telephone encounter Prem Kuns [facility] Start: 06-13-2021 End: 06-13-2021 ambulatory Prem Kuns Other [employer] Other Start: 06-13-2021 Telephone encounter Prem Goel [facility] Start: 04-30-2021 End: 04-30-2021 ambulatory Prem Goel Other [employer] Other Start: 04-30-2021 Office outpatient visit 25 minutes Prem Goel [facility] Start: 02-28-2021 End: 02-28-2021 ambulatory Prem Goel Other [employer] Other Start: 02-28-2021 Patient encounter procedure Prem Goel [facility] Start: 08-18-2019 Annual wellness visit Prem arevalo Other [employer] Other Procedures Date Procedure Procedure Detail Performing Clinician Start: 10-12-2023 Quick Strep (POC) DO Br ett [place] Work Phone: Start: 10-12-2023 RSV (POC) DO Prem krishnamurthy Work Phone: Plan of Treatment Date Care Activity Detail Author Start: 04-04-2024 Bacteria identified in Urine by Culture Urine Culture [facility] Start: 04-04-2024 Urine culture [facility] Comprehensive metabo lic 2000 panel - Serum or Plasma [facility] Glucose measurement estimated from glycated hemoglobin [facility] Glucose measurement estimated from glycated hemoglobin [facility] Immunizations Immunization Date Immunization Notes Care Provider Fa cility 06-13-2021 COVID-19 Vaccine Pfizer - Documentation Purposes Only Prem Goel Other [facility] 07-19-2020 COVID-19 Vaccine Pfizer - Documentation Purposes Only Prem Goel Other [facility] 06-29-2020 COVID-19 Vaccine Pfizer - Documentation Purposes Only Prem Kuns Other [facility] NEGATED: Highlighted row has not occurred!05-06-2022 influenza, seasonal, injectable Patient Objection Prem Kuns Other [facility] NEGATED: Highlighted row has not occurred!05-06-2022 Prevnar 20 Patient Objection Prem Kuns Other [facility] NEGATED: Highlighted row has not occurred!02-17-2019 influenza, seasonal, injectable Patient Objection Prem Kuns Other [facility] NEGATED: Highlighted row has not occurred!04-07-2017 influenza, seasonal, injectable Patient Objection Prem Kuns Other [facility] Payers Date Payer Category Payer Private Health Insurance 2023 Self-pay [id number] 1959 Private Health Insurance [id number] 1937 Unknown [id number] 2.840.1.281815.3.579.2.59 1937 Unknown [id number] 2..840.1.486378.3.579.2. 1937 Unknown [id number] 2.16.840.1.056802.3.579.2.59 1937 Unknown [id number] 2.16.840.1.702326.3.579.2.593 1937 Unknown [id number] 2.16.840.1.919305.3.579.2.59 1937 Unknown [id number] 2.16.840.1.978869.3.579.2.593 1937 Unknown [id number] 2.16.840.1.827977.3.579.2.59 1937 Unknown [id number] 2.16.840.1.051268.3.579.2.593 1937 Unknown [id number] 2.16.840.1.683035.3.579.2.593 1937 Unknown [id number] 2.16.840.1.829935.3.579.2.593 1937 Unknown [id number] 2.16.840.1.734611.3.579.2.593 1937 Unknown [id number] 2.16.840.1.768677.3.579.2.196 1937 Unknown [id number] 2.16.840.1.277987.3.579.2.196 Medicare Medicare [id number] Unknown [facility] Health Claims [id number] Unknown [id number] 2.16.840.1.195332.3.579.2.531 Unknown [id number] 2.16.840.1.800389.3.579.2.531 Unknown [id number] 2.16.840.1.281244.3.579.2.531 Unknown [id number] 2.16.840.1.539563.3.579.2.531 Social History Date Type Detail Facility Unknown if ever smoked [employer] Other Sex Assigned At Sex Assigned At Bir th [employer] Other Start: 03-28-2020 End: 12-29-2023 Tobacco smoking status NHIS Never smoked tobacco (finding) [facility] Start: 1935 Sex Assigned At Female [facility] Start: 09-06-2024 Sex Female (finding) [facility] Clinical Notes 12-21-2007 to 04-04-2024 Note Date & Type Note Facility 04-04-2024 Evaluation note Authored April 04, 2024 8:14am The above note written by JUVENAL Diamond acting as human recorder, note dictated by Dr. Prem Goel. [facility] Work Phone: [phone] 441-340110-10-2023 Evaluation note* Encounter Date Diagnosis Assessment Notes [...] exercise regimen; we will continue to monitor. [employer] Other 08-25-2023 Evaluation note* Encounter Date Diagnosis Assessment Notes Treatment Notes Treatment Clinical Notes Jan, Hyperlipidemia (ICD-10 - E78.5) [employer] Other 06-07-2023 Evaluation note* Encounter Date Diagnosis Assessment Notes Treatment Notes Treatment Clinical Notes Nov, Bronchopneumonia (ICD-10 - J18.0) [facility] ER records reviewed from both 11/06 [...] (ICD-10 - R59.0) Noted on imaging from [facility]. I do believe this is likely due to her being ill. She has never smoked. Discussed these findings with the and the patient if symptoms persist we may have pulmonary evaluation but at this time patient appears to be improving [employer] Other 04-27-2023 NoteCONSULTATION CONSULTATION DATE: 10/02/2022 TO: [...] our patients to inform us about any [id number] medications or herbal remedies/nutritional supplements/alternative remedies. 2. [...] treatment options with their primary care provider.[id number] Note CONSULTATION CONSULTATION DATE: 09/04/2022 TO: Dr. [...] mg pills, 1-2 at h.s. as tolerated.[id number] NoteCONSULTATION CONSULTATION DATE: 07/22/2022 CHIEF COMPLAINT: Right [...] her understand and would like to proceed,.[facility] 05-08-2022 NoteCONSULTATION CONSULTATION DATE: 05/08/2022 HISTORY OF [...] in three months' time unless otherwise indicated.[id number] NoteCONSULTATION CONSULTATION DATE: 03/06/2022 This is a [...] of care and all questions were answered.[id number] Evaluation note* Encounter Date Diagnosis Assessment Notes Treatment Notes Treatment Clinical Notes Feb, Hyperlipidemia (ICD-10 - E78.5) [employer] Other 08-23-2022 Evaluation note* Encounter Date Diagnosis [...] E78.5) Jan, Hyperglycemia (ICD-1 0 - R73.9) [employer] Other 08-16-2022 NoteCONSULTATION CONSULTATION DATE: 01/21/2022 CHIEF [...] patient and her understand. CC: Adriana Eason.Sunil.[id number] NotePROCEDURE: [employer] It Signa HDXT 1.5 Sagittal T1, T2, STIR [...] and signed by Ralph Figueroa on 10/25/2021 1510[facility]03-10-2022 Evaluation note* Encounter Date Diagnosis [...] we will attempt to order an MRI. [employer] Other 01-06-2022 Evaluation note* Encounter Date Diagnosis Assessment Notes Treatment Notes Treatment Clinical Notes Jun, Hyperlipidemia (ICD-10 - E78.5) [employer] Other 11-23-2021 Evaluation note* Encounter Date Diagnosis [...] work-up i.e. CAT scan of her abdomen. [employer] Other 09-23-2021 Evaluation note* Encounter Date Diagnosis [...] monitor, a blood work order was provided. [employer] Other 07-15-2008 History general Narrative - Reported* Type Description Date Medical History Colonoscopy 12-21-07 Medical History Stress Test 01-18-[address] Scan Abdomen and Pelvis 06-07 Medical History Mammogram 2-11 Medical History Pap 1-10 Medical History 02/2013 [facility] [place] Medical History 10/13/13-mammogram at [facility] Medical History 12/2015 mammogram Medical History 12/2016 Mammogram Medical History 07/2019 Mammogram Medical History Cardiolite 04/09/20 Surgical History wisdom teeth Hospitalization History [facility] [employer] Other [id number] History general Narrative - Reported* Type Description Date Medical History Colonoscopy 12-21-07 Medical History Stress Test 01-18-[address] Scan Abdomen and Pelvis 06-07 Medical History Mammogram 2-11 Medical History Pap 1-10 Medical History 02/2013 [facility] [place] Medical History 10/13/13-mammogram at [facility] Medical History 12/2015 mammogram Medical History 12/2016 Mammogram Medical History 07/2019 Mammogram Medical History Cardiolite 04/09/20 Medical History hearing aids Surgical History wisdom teeth Hospitalization History child [facility] [employer] Other Evaluation noteNo InformationNortLower [facility] [employer] Other Evaluation noteNo assessment information available [facility] Work Phone: Evaluation note* Diagnosis Onset Date Resolution Status Degenerative disc disease, lumbar acute Encounter for subsequent [facility] wellness visit (AWV) in Medicare patient acute Fall acute Hyperlipidemia acute Lower extremity edema acute Prediabetes acute Screening mammogram for breast cancer acute Urinary incontinence acute [facility] Work Phone: Evaluation note* Author Beena Packer [facility] Authored December 29, 2023 10:0 4am The above note written by JUVENAL Diamond acting as human recorder, note dictated by Dr.Brett Goel. [facility] Work Phone: Evaluation note* Author Benea Packer [facility] Authored April 04, 2024 8 :14am The above note written by JUVENAL Diamond acting as human recorder, note dictated by Dr. Prem Goel. [facility] Work Phone: Summary Purpose Family History No [...] section and content) DATE CREATED AUTHOR [facility] DATE CREATED AUTHOR AUTHOR'S ORGANIZ ATION 10/27/2021 [facility] dical Specialist DATE CREATED AUTHOR AUTHOR'S ORGANIZ ATION 10/17/2022 [facility] DATE CREATED AUTHOR AUTHOR'S ORGANIZ ATION 04/10/2024 [facility] DATE CREATED AUTHOR AUTHOR'S ORGANIZ ATION 02/22/2025 [facility] REASON FOR VISIT (unrecogniz ed section and content) refillMEDICARE WELLNESS SUBR efillsreview labs- hyperlipidemia managementRefillship/leg painhip and leg painClinicalRefill3 month Follow up right hp /legRefillsClinicalER FOLLOW UP JUANC BRONCHITISRefills4 month Follow upRefills Care Teams (unrecognized [...] Status: Inactive Member Role Status Dates Prem Kuns , DO Primary Care Provide r, Attending Provider Active Start: March 30, 2024 End: March 30, 2024 Team Status: Inactive Member Role Status Dates Prem Raymon DO Primary Care Provide r, Attending Provider Active Start: April 04, 2024 End: April 04, 2024 Team Status: Inactive Member Role Status Dates Prem RodriguezDO eddie Primary Care Provider Active Sta rt: September [...] BE BASED ON THE PRIMARY CLINICAL RECORDS. [employer] provides no warranty or guarantee of the accuracy or completeness of information in this document.
--- NOTE | 2025-03-02 09:28 | P.CN_ITS ---
Consult Note: HPI Data of Consult Patient: known to practice within the last 3 years Consult date: 03/02/25 Requesting Physician: Mercy Pak NP Primary Care Provider: PREM GOEL Consult Narrative Reason for consult: low back pain Narrative: Mary King a pleasant 89 year old female presents for evaluation and ma nagement of chronic low back pain. longstanding low back pain > 12 months unresponsive to > 6 weeks of PT/HEP, heat, ice, tylenol, NSAIDs. denies fall/injury since last visit. continues to utilize cane. currently utilizing zonegran, tylenol, diclofenac with benefit without side effects. recently underwent right SIJ injection with 100% improvement ongoing. pain 0/10. cc:: CC: Mercy Pak NP Review of Systems ROS Musculoskeletal Denies: back pain or joint pain PFSH PFS Medical History Low back pain ?M54.50 - Low back pain, unspecified (ICD-10) Hearing deficit ?H91.90 - Unspecified hearing loss, unspecified ear (ICD-10) High cholesterol ?E78.00 - Pure hypercholesterolemia, unspecified (ICD-10) Surgical History H/O breast biopsy ?Z98.890 - Other specified postprocedural states (ICD-10) Family History Brother Family history of CHF (congestive heart failure) Social History Within the past year, how often did you have a drink containing alcohol: monthly or less Within the past year, how many standard drinks containing alcohol did you have on a typical day: 1 or 2 Within the past year, how often did you have six or more drinks on one occasion: less than monthly Total score: 1 Score interpretation: A score less than 3 is consistent with normal alcohol consumption. 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 Known occupational exposures/hazards: No Highest level of school completed/degree received: high school graduate Do you want help with school or training: No Are you now , , , , never or living with a partner: In a typical week, how many times do you talk on the telephone with family, friends, or neighbors: 3 or more times per week How often do you get together with friends or relatives: 3 or more times per week How often do you attend adventist or synagogue services: 4 or more times per year Do you belong to any clubs or organizations such as adventist groups unions, fraternal or athletic groups, or school groups: no Total score: 3 Score interpretation: A score of greater than or equal to 2 indicates the lowest level of social isolation. Little interest or pleasure in doing things: several days Feeling down, depressed, or hopeless: several days Feel stressed/tense/nervous/anxious/difficulty sleeping: only a little Due to disability, difficulty making decisions: No Do you think of yourself as: straight/heterosexual Gender Identity: female Meds Home Medications and Allergies Home Medications ?Medication ?Instructions ?Recorded ?Confirmed ?Type acetaminophen 650 mg 650 mg PO .QD 11/14/2202/20 History tablet,extended release (Arthritis Pain Relief (acetaminophen) ER) zonisamide 25 mg capsule 50 mg PO BID 03/31/24 History diclofenac sodium 75 mg 75 mg PO BID PRN pain #60 ta bs 12/12/24 02/20/25 Rx tablet,delayed release Allergies Allergy/AdvReac Type Severity Reaction Status Date / Time No Known Drug Allergies Allergy Verified 01/30/25 11:10 Exam Constitutional Documenting provider has reviewed patient's vital signs: yes Common normals: no apparent distress, oriented x3, healthy appearing, alert and well nourished General appearance: cooperative HENMI Common normals: normocephalic, hearing grossly normal bilaterally and moist oral mucous membranes Head and scalp: normocephalic Eye Common normals: PERRL Pupil: PERRL Neck & C-Spine Common normals: full ROM General: normal visual inspection Chest Common normals: inspection of chest normal Respiratory Common normals: normal respiratory effort, no retractions and no use of accessory muscles Back & Pelvis Lumbar spine/lower back: ROM limited; no pain with ROM, no lumbar spinal tenderness and straight leg raise positive Sacroiliac joints: SI joints normal Other: negative right ross(patricks), gaenslens, thigh thrust, compression test Neuro Common normals: oriented x3 Sensorium/orientation: alert Gait (neuro): shuffling and assistive device used cane Psych Common normals: mental status grossly normal, thought process normal, cooperative, affect normal, speech normal and activity/motor behavior normal Speech: normal speech Thought process: normal thought process Results Additional Findings Additional findings: If on a controlled substance or opioids, I have checked an [place]AR[place] report on this patient and there are no aberrancies noted in the prescribing history.??If on a controlled substance or opioid a drug screen was completed and reviewed within the last year, and if there has not been a drug screen completed we ordered one today to monitor higher risk, state monitored pain medication use. As part of providing excellent, safe, comprehensive care, the following was completed at our patient's visit: 1. A medication reconciliation and review to ensure accurate knowledge of current/active medications, including asking our patients to inform us about any kyiz-jxp-vomsxhw medications or herbal remedies/nutritional supplements/alternative remedies. 2. A review to specifically ensure our patients have had annual screening for screening for depression, screening for tobacco use, and screening for unhealthy alcohol use. For concerning screenings had a discussion with the patient, provided patient education, and recommended follow-up with primary care provider when appropriate. If patient noted with a risk of falling, they received education on strength, gait, and balance training to prevent future risk of falling. Portions of this note may have been carried over from the previous visit and updated as appropriate. Please note this office utilizes paper charting in addition to the electronic medical record. A list of current medications, vitals, and PMH is available there as the clinical staff outside of myself do not have access to [employer] charting during the clinic day operations. As part of providing quality comprehensive care the current medications, vitals, and PMH were reviewed in the paper chart. Assessment and Plan Assessment and Plan (1) Sacroiliitis: Assessment and Plan: 02-20-25 right SIJ injection 100% improvement ongoing (2) Lumbar stenosis with neurogenic claudication: Assessment and Plan: 01-30-25 right L4-5 L5-S1 TFESI >80% improvement ongoing Plan pain well controlled at this time, continue HEP as tolerated. Pts concerned with depression, irritability, and sudden outbursts. I have advised pt to discuss this further with her PCP, as he has also mentioned her shuffling gate, forgetfullness, and concerns with reaction times/driving. Continue current medications. f/u 3 months, sooner if needed
== END 2025-03-02 08:53 | disposition home or self-care (01) ==
LOC: PM 08:53
PROVIDERS: PCP Family Medicine; Visit Provider Nurse Practitioner
DX: M46.1 Sacroiliitis, not elsewhere classified (principal); M48.062 Spinal stenosis, lumbar region with neurogenic claudication
CPT/HCPCS: G0463